=== PATIENT | female | born 1950 | race African-American/Black ===

== ENCOUNTER 2016-05-05 01:33 | Emergency (ER) | payer MEDICARE, MEDICAID ==
[~2016-05-05] VITALS: Ht 165.1 cm; Wt 95.3 kg
[~2016-05-05 01:33] MED LIST: ALBUTEROL SULF8.5 GM INH; ASPIRIN81 MG ORAL; AZITHROMYCIN250 MG ORAL; CARVEDILOL6.25 MG PO; COLACE100 MG ORAL; FOLIC ACID1 MG PO; GUAIFENESIN-CO118 M1 PO; IBUPROFEN600 MG ORAL; K-DUR10 ME1 PO; LASIX20 M1 PO; LEVAQUIN500 MG ORAL; LIPITOR20 MG ORAL; LOPRESSOR25 M1 ORAL; MONISTAT 744 GM VG; NITROFURANTOIN100 M2 ORAL; NITROSTAT0.4 M1 SL; NORCO 5-325 TA1 EACH ORAL; PLAVIX75 MG ORAL; PLAVIX75 MG PO; PRINIVIL20 MG ORAL; PROMETHAZINE-C118 M1 ORAL; PROTONIX40 MG ORAL; REPLENS6.7 GM VG; SPIRIVA18 MCG INH; SPIRONOLACTONE25 MG PO; VICODIN 5-5001 EACH PO
[2016-05-05] MEDS ORDERED: Albuterol ud Inhalation HHN ONE (01:45)
[2016-05-05] MEDS ORDERED: Solu-MEDROL 125mg Inj IVP ONE (01:45)
[2016-05-05] MEDS ORDERED: Ipratropium 0.02% Inh Soln 2.5ml UD HHN ONE (01:45)
[2016-05-05] MEDS ORDERED: Morphine Sulfate 4mg/ml Inj IVP ONE (01:45)
[2016-05-05 01:50] VITALS: BP 108/69
--- NOTE | 2016-05-05 01:56 | Emergency Room Report ---
History of Present Illness General Chief Complaint: Upper Respiratory Illness Source: Patient, EMS Present Illness HPI The patient presents with chest pain and shortness of breath. She is being treated for bronchitis recently received a prescription for promethazine at her doctor's office. She does have a productive cough hydrated pain is in her back and her right chest. It is 8-9/10 sharp pleuritic radiates up towards her shoulder blade. She does have medicines to treat asthma at home. She does not have a nebulizer. She denies taking prednisone at this time. The paramedics report that there was quite a bit of cigarette smoke where she was. Allergies: Coded Allergies: No Known Allergies (Verified , 05/05/16) Patient History Past Medical History: see triage record Social History: Reports: smoking Social History Narrative with daughter Last Menstrual Period: unk Now: No Reviewed Nursing Documentation: PMH: Agreed, PSxH: Agreed Nursing Documentation-PMH Hx Cardiac Problems: Yes - CHF Hx Hypertension: Yes Hx Pacemaker: Yes Hx COPD: Yes Hx Diabetes: Yes Hx Cancer: No Hx Gastrointestinal Problems: No Hx Neurological Problems: Yes Hx Cerebrovascular Accident: Yes Hx Neurologic Surgery: No Review of Systems All Other Systems: negative except mentioned in HPI Physical Exam Vital Signs Date Time Temp Pulse Resp B/P Pulse Ox O2 Delivery O2 Flow Rate FiO2 05/05/16 01:37 98.2 97 20 107/72 94 Room Air Sp02 EP Interpretation: reviewed, normal General Appearance: well appearing, no apparent distress, GCS 15 Head: normocephalic Eyes: bilateral eye other - dyscongugate gaze ENT: moist mucus membranes Neck: supple Respiratory: wheezing, expiration, other - chest wall tenderness R Cardiovascular #1: regular rate, rhythm, no edema Cardiovascular #2: 2+ radial (R) Gastrointestinal: normal inspection, normal bowel sounds, non tender, no mass, non-distended Musculoskeletal: back normal, gait/station normal, normal range of motion Neurologic: alert, oriented x3, grossly normal - with dyscongugate gaze Psychiatric: mood/affect normal Skin: normal inspection, warm/dry Medical Decision Making Diagnostic Impression: Primary Impression: Chest pain Qualified Codes: R07.9 - Chest pain, unspecified Additional Impressions: COPD (chronic obstructive pulmonary disease) Qualified Codes: J44.1 - Chronic obstructive pulmonary disease with (acute) exacerbation UTI (urinary tract infection) Qualified Codes: N30.00 - Acute cystitis without hematuria ER Course Patient with SOB and wheezing. Ddx; pneumonia, COPD, bronchitis, AMI. Emergent evaluation and treatment undertaken. Labs, EKG, CXR. Bronchodilators and steroids initiated. Treatment for pain also. History is atypical. EKG - no injury. CXR = copd, no infiltrate. Labs unremarkable. UTI. Patient improved. Offered patient admission if not feel OK at home. She elected to be treated at home. Patient stable for outpatient observation and treatment. Advised to return if not doing well. Laboratory Tests Test 05/05/16 02:00 05/05/16 02:32 White Blood Count 10.2 K/UL (4.8-10.8) Red Blood Count 3.54 M/UL (4.20-5.40) L Hemoglobin 11.9 G/DL (12.0-16.0) L Hematocrit 34.9 % (37.0-47.0) L Mean Corpuscular Volume 99 FL (80-99) Mean Corpuscular Hemoglobin 33.6 PG (27.0-31.0) H Mean Corpuscular Hemoglobin Concent 34.1 G/DL (32.0-36.0) Red Cell Distribution Width 11.3 % (11.6-14.8) L Platelet Count 188 K/UL (150-450) Mean Platelet Volume 6.6 FL (6.5-10.1) Neutrophils (%) (Auto) 51.6 % (45.0-75.0) Lymphocytes (%) (Auto) 40.3 % (20.0-45.0) Monocytes (%) (Auto) 4.5 % (1.0-10.0) Eosinophils (%) (Auto) 3.0 % (0.0-3.0) Basophils (%) (Auto) 0.6 % (0.0-2.0) Prothrombin Time 9.8 SEC (9.30-11.50) Prothrombin Time INR 1.0 (0.9-1.1) PTT 28 SEC (23-33) Sodium Level 143 mEQ/L (135-145) Potassium Level 3.9 mEQ/L (3.4-4.9) Chloride Level 102 mEQ/L (98-107) Carbon Dioxide Level 25 mEQ/L (20-30) Anion Gap 16 (5-15) H Blood Urea Nitrogen 17 mg/dL (7-23) Creatinine 1.0 mg/dL (0.5-0.9) H Estimate Glomerular Filtration Rate > 60 mL/min (>60) Glucose Level 119 mg/dL (74-106) H Lactic Acid Level 2.00 mmol/L (0.66-2.22) Calcium Level 8.6 mg/dL (8.6-10.2) Total Bilirubin < 0.2 mg/dL (0.0-1.2) Aspartate Amino Transferase (AST) 29 U/L (5-40) Alanine Aminotransferase (ALT) 22 U/L (3-33) Alkaline Phosphatase 113 U/L (35-104) H Total Creatine Kinase 243 U/L (26-140) H Troponin I < 0.30 ng/mL (<=0.30) Pro-B-Type Natriuretic Peptide 206 pg/mL (0-125) H Total Protein 7.6 g/dL (6.6-8.7) Albumin 3.4 g/dL (3.5-5.2) L Globulin 4.2 g/dL Albumin/Globulin Ratio 0.8 (1.0-2.7) L Urine Color Pale yellow Urine Appearance Clear Urine pH 5 (4.5-8.0) Urine Specific Horace 1.015 (1.005-1.035) Urine Protein Negative (NEGATIVE) Urine Glucose (UA) Negative (NEGATIVE) Urine Ketones Negative (NEGATIVE) Urine Occult Blood Negative (NEGATIVE) Urine Nitrite Negative (NEGATIVE) Urine Bilirubin Negative (NEGATIVE) Urine Urobilinogen Normal MG/DL (0.0-1.0) Urine Leukocyte Esterase 2+ (NEGATIVE) H Urine RBC 0-2 /HPF (0 - 2) Urine WBC 5-10 /HPF (0 - 2) H Urine Squamous Epithelial Cells Few /LPF (NONE/OCC) Urine Bacteria Few /HPF (NONE) Urine Trichomonas Few /HPF (NONE) H Urine Opiates Screen Positive (NEGATIVE) H Urine Barbiturates Screen Negative (NEGATIVE) Phencyclidine (PCP) Screen Negative (NEGATIVE) Urine Amphetamines Screen Negative (NEGATIVE) Urine Benzodiazepines Screen Negative (NEGATIVE) Urine Cocaine Screen Negative (NEGATIVE) Urine Marijuana (THC) Screen Negative (NEGATIVE) Microbiology Date/Time Source Procedure Growth Status 05/05/16 02:26 Nasal Nares Influenza Types A,B Antigen (BRENDA) - Final Complete EKG Diagnostic Results Rate: normal Rhythm: NSR ST Segments: no acute changes Rhythm Strip Diag. Results EP Interpretation: yes Rhythm: NSR, no PVC's, no ectopy Chest X-Ray Diagnostic Results EP Interpretation: Yes Findings: no consolidation, no effusion, no pneumothorax, other - poor insp Number of Views: 1 Last Vital Signs Date Time Temp Pulse Resp B/P Pulse Ox O2 Delivery O2 Flow Rate FiO2 05/05/16 06:01 98.2 87 19 111/67 97 Room Air 2.0 Status: improved Disposition: HOME, SELF-CARE Condition: Improved Scripts D-Methorphan Hb/Prometh Hcl* (PROMETHAZINE-DM SYRUP*) 118 Ml Syrup 5 ML ORAL Q4H Y for For Cough, #120 ML 0 Refills Prov: Ricardo Coker M.D. 05/05/16 Prednisone* (PREDNISONE*) 10 Mg Tablet 10 MG ORAL DAILY, #22 TAB 0 Refills 4 po QD X 2, 3 po QD X 2, 2 po QD X 2, 1 po QD X 4 Prov: Ricardo Coker M.D. 05/05/16 Nitrofurantoin Monohyd/M-Cryst* (MACROBID 100 MG*) 100 Mg Capsule 100 MG ORAL EVERY 12 HOURS, #14 CAP Prov: Ricardo Coker M.D. 05/05/16 Referrals: NOT CHOSEN ANISHA/,REFERRING (PCP) Ricardo Coker M.D. May 05, 2016 01:56
[2016-05-05] MEDS ORDERED: DIOVAN80 MG ORAL (02:00)
[2016-05-05] MEDS ORDERED: FUROSEMIDE40 MG/5 ML ORAL (02:00)
[2016-05-05] MEDS ORDERED: SPIRONOLACTONE1 EACH ORAL (02:00)
[2016-05-05] MEDS ORDERED: POTASSIUM 25 M25 ME1 PO (02:00)
[2016-05-05] MEDS ORDERED: FOLIC ACID1 M1 PO (02:00)
[2016-05-05] MEDS ORDERED: COREG6.25 MG ORAL (02:00)
[2016-05-05] MEDS ORDERED: PROMETH-CODEIN 65 ML PO (02:00)
[2016-05-05] MEDS ORDERED: D3-5050000 UNIT PO (02:00)
[2016-05-05 02:19] LABS: BASOPHILS % (AUTO) 0.6 % (0.0-2.0); LYMPHOCYTES % (AUTO) 40.3 % (20.0-45.0); MEAN CORPUSCULAR HEMOGLOBIN 33.6 PG (27.0-31.0); MEAN CORPUSCULAR HGB CONC 34.1 G/DL (32.0-36.0); MEAN CORPUSCULAR VOLUME 99 FL (80-99); MEAN PLATELET VOLUME 6.6 FL (6.5-10.1); MONOCYTES % (AUTO) 4.5 % (1.0-10.0); NEUTROPHILS % (AUTO) 51.6 % (45.0-75.0); PLATELET COUNT 188 K/UL (150-450); RED BLOOD COUNT 3.54 M/UL (4.20-5.40); RED CELL DISTRIBUTION WIDTH 11.3 % (11.6-14.8); WHITE BLOOD COUNT 10.2 K/UL (4.8-10.8)
[2016-05-05 02:27] LABS: PROTHROMBIN TIME 9.8 SEC (9.30-11.50)
[2016-05-05 02:35] LABS: ALANINE AMINOTRANSFERASE 22 U/L (3-33); ALBUMIN/GLOBULIN RATIO 0.8 (1.0-2.7); ANION GAP 16 (5-15); ASPARTATE AMINO TRANSFERASE 29 U/L (5-40); CALCIUM 8.6 mg/dL (8.6-10.2); CARBON DIOXIDE 25 mEQ/L (20-30); CHLORIDE 102 mEQ/L (98-107); GLOMERULAR FILTRATION RATE > 60 mL/min (>60); HEMOLYSIS 3; POTASSIUM 3.9 mEQ/L (3.4-4.9); SODIUM 143 mEQ/L (135-145); TOTAL PROTEIN 7.6 g/dL (6.6-8.7)
[2016-05-05 02:38] LABS: REFLEX LACTIC ACID YES OR NO YES
[2016-05-05 02:41] LABS: TROPONIN I < 0.30 ng/mL (<=0.30)
[2016-05-05 02:43] VITALS: BP 112/67
[2016-05-05 02:48] LABS: APPEARANCE,URINE CLEAR; KETONES,URINE NEGATIVE (NEGATIVE); LEUKOCYTE ESTERASE ,URINE 2+ (NEGATIVE); NITRITE,URINE NEGATIVE (NEGATIVE); PH,URINE 5 (4.5-8.0); PROTEIN,URINE NEGATIVE (NEGATIVE); UROBILINOGEN,URINE NORMAL MG/DL (0.0-1.0)
[2016-05-05 03:28] LABS: BACTERIA,URINE FEW /HPF; RBC,URINE 0-2 /HPF (0 - 2); SQUAMOUS EPITHELIAL CELL,UR FEW /LPF (NONE/OCC); TRICHOMONAS,URINE FEW /HPF
[2016-05-05 04:35] VITALS: BP 112/71
[2016-05-05] MEDS ORDERED: cefTRIAXone 1 GM in NS 55 ML IVPB ONE (05:15)
[2016-05-05 05:24] VITALS: BP 111/67
[2016-05-05] MEDS ORDERED: NITROFURANTOIN100 M2 ORAL (05:24)
[2016-05-05] MEDS ORDERED: PREDNISONE10 MG ORAL (05:24)
[2016-05-05] MEDS ORDERED: PROMETHAZINE-D118 ML ORAL (05:24)
[2016-05-05 06:01] VITALS: BP 111/67
--- NOTE | 2016-05-05 08:46 | Diagnostic Imaging Report ---
Indications: Chest pain Technique: Portable AP chest Findings: Comparison: 08/14/15 Cardiac silhouette remains normal in size. Pulmonary vasculature remains within normal limits. Lungs and pleura remain clear. Mild calcification of the aortic arch is again noted. IMPRESSION: No evidence of acute disease, unchanged Stable chronic changes as described
--- NOTE | 2016-05-05 19:42 | Cardiology Report ---
APPROVED REPORT EKG Measurement Heart [id number] Normal sinus rhythm Anterior infarct, age undetermined Abnormal ECG
== END 2016-05-05 06:06 | disposition home or self-care (01) ==
LOC: EDBD 01:33 → EMR 01:48 → CANBEDREQ 05:26 → EMR 06:06
DX: R07.9 Chest pain, unspecified (principal); J44.9 Chronic obstructive pulmonary disease, unspecified; I50.9 Heart failure, unspecified; I10 Essential (primary) hypertension; E11.9 Type 2 diabetes mellitus without complications; Z86.73 Personal history of transient ischemic attack (TIA), and cerebral infarction without residual deficits; Z95.0 Presence of cardiac pacemaker
CPT/HCPCS: 36415; 71010; 80053; 80300; 81003; 82550; 83605; 83880; 84484; 85025; 85610; 85730; 86710; 87040; 93005; 94640; 94664; 96361; 96365; 96374; 96375; 99284; J0696; J2270; J2405; J2930

== ENCOUNTER 2016-05-31 17:36 | Emergency (ER) | payer MEDICARE, MEDICAID ==
[~2016-05-31] VITALS: Ht 165.1 cm; Wt 95.7 kg
[~2016-05-31 17:36] MED LIST changes: +COREG6.25 MG ORAL; +D3-5050000 UNIT PO; +DIOVAN80 MG ORAL; +FOLIC ACID1 M1 PO; +FUROSEMIDE40 MG/5 ML ORAL; +POTASSIUM 25 M25 ME1 PO; +PREDNISONE10 MG ORAL; +PROMETH-CODEIN 65 ML PO; +PROMETHAZINE-D118 ML ORAL; +SPIRONOLACTONE1 EACH ORAL
[2016-05-31 17:58] VITALS: BP 156/87
[2016-05-31] MEDS ORDERED: ACYCLOVIR800 MG ORAL (18:02)
[2016-05-31] MEDS ORDERED: TYLENOL EXTRA500 MG ORAL (18:02)
[2016-05-31] MEDS ORDERED: BACTRIM DS TAB1 EAC1 ORAL (18:02)
[2016-05-31 18:09] VITALS: BP 156/87
--- NOTE | 2016-05-31 19:35 | Emergency Room Report ---
History of Present Illness General Chief Complaint: Skin Rash/Abscess Source: Patient Present Illness HPI The patient is a 64-year-old female presenting for an abscess and a rash. The patient states that she first noticed pain and swelling in the arm 3 days prior. The patient states that she has had an abscess in this location previously and this feels the same. Pain is described as an 8/10 dull ache it is worse with touch. Patient has not noticed any discharge. Pain does not radiate. The patient also noticed a rash of the left breast, arm, and back which began 2 days prior. The patient states that she has noticed only minor pain with this rash and is described as a 3/10 sharp sensation. Pain worse with touch. The patient has had chickenpox as a child. The patient denies any other symptoms including fever, chills, chest pain, shortness of breath, dizziness, blurred vision Allergies: Coded Allergies: No Known Allergies (Verified , 05/05/16) Patient History Past Medical History: see triage record Pertinent Family History: none Last Menstrual Period: N/A Reviewed Nursing Documentation: PMH: Agreed, PSxH: Agreed Nursing Documentation-PMH Past Medical History: No Stated History Hx Cardiac Problems: Yes - CHF Hx Hypertension: Yes Hx Pacemaker: Yes Hx COPD: Yes Hx Diabetes: Yes Hx Cancer: No Hx Gastrointestinal Problems: No Hx Neurological Problems: Yes Hx Cerebrovascular Accident: Yes Hx Neurologic Surgery: No Review of Systems All Other Systems: negative except mentioned in HPI Physical Exam Vital Signs Date Time Temp Pulse Resp B/P Pulse Ox O2 Delivery O2 Flow Rate FiO2 05/31/16 17:44 98.2 84 19 161/93 98 Room Air Sp02 EP Interpretation: reviewed, normal General Appearance: no apparent distress, alert, GCS 15, non-toxic Head: normocephalic, atraumatic Eyes: bilateral eye PERRL, bilateral eye normal inspection Musculoskeletal: back normal, gait/station normal, normal range of motion, non- tender Neurologic: alert, oriented x3, responsive, motor strength/tone normal, sensory intact, speech normal Psychiatric: judgement/insight normal, memory normal, mood/affect normal, no suicidal/homicidal ideation Skin: normal turgor, rash - There are grouped vesicles on an erythematous base from the L upper chest to the L back. Does not cross midline. TTP, other - 2cm in diameter indurated abscess of the L axilla Lymphatic: no adenopathy Medical Decision Making PA Attestation Dr. Abebe is my supervising physician. Patient management was discussed with my supervising physician Diagnostic Impression: Primary Impression: Abscess Additional Impression: Shingles ER Course The patient is a 64-year-old female presenting for an abscess and a rash. Ddx considered include but not limited to insect bite, contact dermatitis, shingles, eczema, abscess, cellulitis PE: afebrile. NAD. There are grouped vesicles on an erythematous base from the L upper chest to the L back. Does not cross midline. TTP There is also a 2 cm indurated abscess of the left axilla. Tender to palpation. No discharge. No fluctuance. The patient will be discharged with a prescription for acyclovir for shingles and Keflex for abscess. Patient is given instructions to return for incision and drainage if/when needed. ER precautions are given The patient will follow up with primary care physician Last Vital Signs Date Time Temp Pulse Resp B/P Pulse Ox O2 Delivery O2 Flow Rate FiO2 05/31/16 18:09 98.2 75 19 156/87 98 Room Air Status: improved Disposition: HOME, SELF-CARE Condition: Improved Scripts Acetaminophen* (TYLENOL EXTRA STRENGTH*) 500 Mg Tablet 500 MG ORAL Q8H Y for Prn Headache/Temp > 101, #30 TAB 0 Refills Prov: TERZIAN,MIRIAM P.A. 05/31/16 Trimethoprim/Sulfamethoxazole 160/800* (BACTRIM DS TABLET*) 1 Each Tablet 1 TAB ORAL TWICE A DAY, #14 TAB Prov: TERZIAN,MIRIAM P.A. 05/31/16 Acyclovir* (ZOVIRAX*) 800 Mg Tablet 800 MG ORAL FIVE TIMES A DAY, #35 TAB Prov: TERZIAN,MIRIAM P.A. 05/31/16 Referrals: NON PHYSICIAN (PCP) Patient Instructions: Abscess, Shingles Additional Instructions: I discussed my findings with the patient. All questions and concerns have been answered. Treatment and medication compliance have been addressed. I advised the patient that they need to follow up with PMD in 3-5 days. Return to ED if symptoms worsen, new symptoms arise, or if needed for any reason. Patient verbalized understanding of discharge instructions. The patient will see entry level accounting clerk on [facility] as discussed MIRIAM CRAWFORD May 31, 2016 19:35
== END 2016-05-31 18:12 | disposition home or self-care (01) ==
LOC: EMR 17:51
DX: L02.412 Cutaneous abscess of left axilla (principal); B02.9 Zoster without complications; I10 Essential (primary) hypertension; E11.9 Type 2 diabetes mellitus without complications; Z86.73 Personal history of transient ischemic attack (TIA), and cerebral infarction without residual deficits; Z95.0 Presence of cardiac pacemaker
CPT/HCPCS: 99284

== ENCOUNTER 2016-07-24 08:56 | Emergency (ER) | payer MEDICARE, MEDICAID ==
[~2016-07-24] VITALS: Ht 165.1 cm; Wt 94.3 kg
[~2016-07-24 08:56] MED LIST changes: +ACYCLOVIR800 MG ORAL; +BACTRIM DS TAB1 EAC1 ORAL; +TYLENOL EXTRA500 MG ORAL
[2016-07-24 09:29] VITALS: BP 143/83
[2016-07-24] MEDS ORDERED: AMOXICILLIN500 MG ORAL (09:39)
[2016-07-24 09:45] VITALS: BP 143/83
--- NOTE | 2016-07-24 13:39 | Emergency Room Report ---
History of Present Illness General Chief Complaint: Upper Respiratory Illness Source: Patient Present Illness HPI 66-year-old female presents to ED for evaluation. Patient states for one week she has had runny nose and congestion and a headache. Headache is throbbing, 6/ 10, across the forehead, nonradiating. No other aggravating or relieving factors. Denies fevers chills. Denies sore throat or ear ache. Denies sick contacts or recent travel. No aggravating or relieving factors. Denies any other associated symptom Allergies: Coded Allergies: No Known Allergies (Verified , 05/05/16) Patient History Past Medical History: HTN, CHF, CVA/TIA Past Surgical History: pacemaker Pertinent Family History: none Social History: Denies: alcohol use, drug use, smoking Last Menstrual Period: na Now: No Immunizations: UTD Reviewed Nursing Documentation: PMH: Agreed, PSxH: Agreed Nursing Documentation-PMH Past Medical History: No History, Except For Hx Cardiac Problems: Yes - CHF Hx Hypertension: Yes Hx Pacemaker: Yes Hx COPD: Yes Hx Cancer: No Hx Gastrointestinal Problems: No Hx Neurological Problems: Yes Hx Cerebrovascular Accident: Yes Hx Neurologic Surgery: No Review of Systems All Other Systems: negative except mentioned in HPI Physical Exam Vital Signs Date Time Temp Pulse Resp B/P Pulse Ox O2 Delivery O2 Flow Rate FiO2 07/24/16 09:06 98.4 73 18 143/83 98 Room Air Sp02 EP Interpretation: reviewed, normal General Appearance: no apparent distress, alert, GCS 15, non-toxic Head: normocephalic, other - TTP over frontal sinus Eyes: bilateral eye PERRL, bilateral eye normal inspection ENT: normal ENT inspection, TMs + canals normal Neck: normal inspection Respiratory: normal inspection Cardiovascular #1: normal inspection Gastrointestinal: normal inspection Rectal: deferred Genitourinary: no CVA tenderness Musculoskeletal: normal inspection Neurologic: alert, oriented x3, responsive, motor strength/tone normal, sensory intact, speech normal Psychiatric: normal inspection Skin: normal inspection Lymphatic: no adenopathy Medical Decision Making Diagnostic Impression: Primary Impression: Sinusitis Qualified Codes: J01.10 - Acute frontal sinusitis, unspecified ER Course Hospital Course 66-year-old F presents to ED complaining of nasal congestion. c/o headache Differential diagnoses include: URI, pharyngitis, otitis media, asthma Clinical course Patient placed on stretcher. After initial history, physical exam reveals an elderly female in no acute distress. Bilateral TM unremarkable. No pharyngeal erythema. No tonsillar exudates. No lymphadenopathy. lungs clear. abdomen soft. TTP over frontal sinuses. Clinical findings consistent with sinusitits. given Persistence of symptoms we will treat with antibiotics Diagnosis - sinusitits Stable and discharged home with prescriptions for amoxicillin. Instructed to followup with PMD. Return to ED if symptoms recur or worsen Last Vital Signs Date Time Temp Pulse Resp B/P Pulse Ox O2 Delivery O2 Flow Rate FiO2 07/24/16 09:45 98.4 73 18 143/83 98 Room Air Status: improved Disposition: HOME, SELF-CARE Condition: Stable Scripts Amoxicillin* (AMOXIL*) 500 Mg Capsule 500 MG ORAL THREE TIMES A DAY, #21 CAP Prov: ANIYA LYONS M.D. 07/24/16 Referrals: NON PHYSICIAN (PCP) Patient Instructions: Sinusitis, Adult, [id number] ANIYA LYONS M.D. Jul 24, 2016 13:39
== END 2016-07-24 09:50 | disposition home or self-care (01) ==
LOC: EMR 09:40
DX: J01.10 Acute frontal sinusitis, unspecified (principal); R51 Headache; I10 Essential (primary) hypertension; I50.9 Heart failure, unspecified; Z86.73 Personal history of transient ischemic attack (TIA), and cerebral infarction without residual deficits; Z95.0 Presence of cardiac pacemaker; J44.9 Chronic obstructive pulmonary disease, unspecified
CPT/HCPCS: 99283

== ENCOUNTER 2016-10-27 18:20 | Emergency (ER) | payer MEDICARE, MEDICAID ==
[~2016-10-27] VITALS: Ht 165.1 cm; Wt 94.3 kg
[~2016-10-27 18:20] MED LIST changes: +AMOXICILLIN500 MG ORAL
[2016-10-27 18:32] VITALS: BP 114/69
[2016-10-27] MEDS ORDERED: Fluorescein Strips ONE (18:37)
[2016-10-27] MEDS ORDERED: Tetracaine 0.5% Opth Soln ONE (18:37)
--- NOTE | 2016-10-27 18:56 | Emergency Room Report ---
History of Present Illness General Chief Complaint: Eye Problems Source: Patient Present Illness HPI 66 YO female presents to the ED c/o 01/28 in severity burning in the left eye with , redness, discharge, scratching sensation , and burning when look at bright lights x 4 days. pt. denies trauma to the eye, deep eye pain, pain with movements of the eye, swelling of the eyelids, floaters, flashing lights or vision loss. pt. states vision will become blurry due to excessive tearing. pt. denies DANIELS, Nausea or vomiting. Pt. denies contact lens use, she states she wears glasses for both near and far vision. pt. reports having very poor vision overall, and states she is currently prescribed eye drops that she takes daily by her rag cutting machine feeder for unknown diagnosis, pt. does not recall the names of her eye drops. Denies CP, Palpitations, LOC, AMS, dizziness, Changes in Vision, Sensation, paresthesias, or a sudden severe headache. Allergies: Coded Allergies: No Known Allergies (Verified , 05/05/16) Patient History Past Medical History: see triage record Past Surgical History: none Now: No Immunizations: UTD Reviewed Nursing Documentation: PMH: Agreed, PSxH: Agreed Nursing Documentation-PMH Hx Cardiac Problems: Yes - CHF Hx Hypertension: Yes Hx Pacemaker: Yes Hx COPD: Yes Hx Cancer: No Hx Gastrointestinal Problems: No Hx Neurological Problems: Yes Hx Cerebrovascular Accident: Yes Hx Neurologic Surgery: No Review of Systems All Other Systems: negative except mentioned in HPI Physical Exam Vital Signs Date Time Temp Pulse Resp B/P Pulse Ox O2 Delivery O2 Flow Rate FiO2 10/27/16 18:22 98.1 93 16 114/69 97 Room Air Sp02 EP Interpretation: reviewed, normal General Appearance: no apparent distress, alert, GCS 15, non-toxic Head: normocephalic, atraumatic Eyes: left eye fluoroscene uptake - Positive for increased fluorescein uptake in a linear fashion in the 7 o'clock position of the felt eye, there is no involvement of the iris or pupil. Negative Tita sign. , left eye other - erythema, increased lacrimation and obvious discharge noted from the right eye, no lesions, lid swelling, or evidence of infestation, bilateral eye PERRL, bilateral eye normal inspection, bilateral eye visual acuity - 20/40- tested by PEDIATRIC OPHTHALMOLOGIST: hearing grossly normal, normal pharynx, no angioedema, normal voice Neck: full range of motion, supple/symm/no masses Respiratory: chest non-tender, lungs clear, normal breath sounds, speaking full sentences Cardiovascular #1: regular rate, rhythm, no edema Musculoskeletal: back normal, gait/station normal, normal range of motion, non- tender Neurologic: alert, oriented x3, responsive, motor strength/tone normal, sensory intact, speech normal Psychiatric: judgement/insight normal, memory normal, mood/affect normal Skin: normal color, no rash, warm/dry, well hydrated Lymphatic: no adenopathy Medical Decision Making PA Attestation Dr Rebolledo is my supervising Physician whom patient management has been discussed with. Diagnostic Impression: Primary Impression: Corneal abrasion Qualified Codes: S05.02XA - Injury of conjunctiva and corneal abrasion without foreign body, left eye, initial encounter Additional Impression: Conjunctivitis Qualified Codes: H10.32 - Unspecified acute conjunctivitis, left eye ER Course Pt. presents to the ED c/o : Left eye redness, discharge, scratching sensation and increased tearing x 4 days, now grandchild also has similar symptoms. Pt. reports burning pain that is superficial, and photophobia with bright lights. denies DANIELS, or nausea. - Pt denies Contact lens use, reports wearing glasses. Ddx considered but are not limited to: corneal abrasion, acute glaucoma, globe rupture, FB, Corneal Ulcer, conjunctivitis. Iridis Vital signs: are WNL, pt. is afebrile H&PE are most consistent with: corneal abrasion, and secondary conjunctivitis, pupils are not fixed/ dilated I do not suspect acute glaucoma at this time especially with HPI and grandson with symptoms now, will do fluorescein stain. ORDERS: -Tetracaine and Fluorescein Stain of the left eye: Positive for increased fluorescein uptake in a linear fashion in the 7 o'clock position of the felt eye , there is no involvement of the iris or pupil. Negative Tita sign. Pt. had positive relief of pain with tetracaine drops. there was negative evidence of Fb, deep ulcer, or rupture. ED INTERVENTIONS: none at this time. DISCHARGE: At this time pt. is stable for d/c to home. Will provide printed patient care instructions, and any necessary prescriptions. Care plan and follow up instructions have been discussed with the patient prior to discharge. . Last Vital Signs Date Time Temp Pulse Resp B/P Pulse Ox O2 Delivery O2 Flow Rate FiO2 10/27/16 18:32 98.1 93 16 114/69 97 Room Air Disposition: HOME, SELF-CARE Condition: Stable Scripts Ofloxacin (OCUFLOX) 5 Ml Drops 2 DROP OP QID for 7 Days, #5 ML Prov: Joyce Bass 10/27/16 Acetaminophen* (TYLENOL EXTRA STRENGTH*) 500 Mg Tablet 500 MG ORAL Q6H, #20 TAB 0 Refills Prov: Joyce Bass 10/27/16 Patient Instructions: Corneal Abrasion, [id number], Bacterial Conjunctivitis Additional Instructions: Take medications as directed. Follow up with a [facility] in 48 hours, even if your symptoms have resolved. --Please review list of primary care clinics, if you do not already have a primary care provider Return sooner to ED if new symptoms occur, or current symptoms become worse. - Please note that this Emergency Department Report was dictated using [employer] service technician technology software, occasionally this can lead to erroneous entry secondary to interpretation by the dictation equipment. Joyce Bass Oct 27, 2016 18:56
[2016-10-27] MEDS ORDERED: OCUFLOX5 ML OP (18:57)
[2016-10-27] MEDS ORDERED: TYLENOL EXTRA500 MG ORAL (18:57)
== END 2016-10-27 19:06 | disposition home or self-care (01) ==
LOC: EMR 18:55
DX: S05.02XA Injury of conjunctiva and corneal abrasion without foreign body, left eye, initial encounter (principal); H10.32 Unspecified acute conjunctivitis, left eye; I50.9 Heart failure, unspecified; I10 Essential (primary) hypertension; Z95.0 Presence of cardiac pacemaker; J44.9 Chronic obstructive pulmonary disease, unspecified; Z86.73 Personal history of transient ischemic attack (TIA), and cerebral infarction without residual deficits; X58.XXXA Exposure to other specified factors, initial encounter; Y92.9 Unspecified place or not applicable
CPT/HCPCS: 99284

== ENCOUNTER 2017-04-02 10:37 | Emergency (ER) | payer MEDICARE, MEDICAID ==
[~2017-04-02] VITALS: Ht 165.1 cm; Wt 93.9 kg
[~2017-04-02 10:37] MED LIST changes: +OCUFLOX5 ML OP
[2017-04-02] MEDS ORDERED: ZYRTEC10 M3 ORAL (10:57)
[2017-04-02 11:05] VITALS: BP 152/94
--- NOTE | 2017-04-02 11:05 | Emergency Room Report ---
History of Present Illness General Chief Complaint: Upper Respiratory Illness Source: Patient Present Illness HPI 66-year-old female with chief complaint of "my nose is running" for 2 weeks No associated sore throat, shortness of breath, chest pain Patient is a smoker, denies history of asthma, COPD or CHF No sick contacts at home Allergies: Coded Allergies: No Known Allergies (Verified , 05/05/16) Patient History Past Medical History: see triage record, old chart reviewed Past Surgical History: none Pertinent Family History: none Social History: Reports: smoking Last Menstrual Period: Post Now: No Immunizations: UTD Reviewed Nursing Documentation: PMH: Agreed, PSxH: Agreed Nursing Documentation-PMH Hx Cardiac Problems: Yes - CHF Hx Hypertension: Yes Hx Pacemaker: No Hx COPD: Yes Hx Diabetes: No Hx Cancer: No Hx Gastrointestinal Problems: No Hx Neurological Problems: No Hx Cerebrovascular Accident: Yes Hx Neurologic Surgery: No Review of Systems All Other Systems: negative except mentioned in HPI Physical Exam Vital Signs Date Time Temp Pulse Resp B/P (MAP) Pulse Ox O2 Delivery O2 Flow Rate FiO2 04/02/17 10:40 98.1 67 19 152/94 99 Room Air Sp02 EP Interpretation: reviewed, normal General Appearance: normal inspection, well appearing, no apparent distress, alert, GCS 15, non-toxic Head: normocephalic, atraumatic Eyes: bilateral eye PERRL, bilateral eye EOMI ENT: normal ENT inspection, hearing grossly normal, normal pharynx, no angioedema, normal voice, TMs + canals normal, uvula midline, moist mucus membranes Neck: normal inspection, full range of motion, supple, no bony tend Respiratory: normal inspection, lungs clear, normal breath sounds, no respiratory distress, no retraction, no wheezing Cardiovascular #1: regular rate, rhythm, no edema Gastrointestinal: normal inspection, normal bowel sounds, non tender, soft, no guarding, no hernia Genitourinary: no CVA tenderness Musculoskeletal: normal inspection, back normal, normal range of motion, Radha' s Sign negative Neurologic: normal inspection, alert, oriented x3, responsive, 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 Patient is to be discharged to home. Prescriptions given are zyrtec Patient is instructed to follow up with their primary care doctor within 5 days. Strict return precautions discussed with patient such as fever, chills, worsening/severe pain, nausea, vomiting, which may indicate severe illness. Patient verbalizes understanding and agrees with plan. Please note that this Emergency Department Report was dictated using Dopiosquality control clerk technology software, occasionally this can lead to erroneous entry secondary to interpretation by the dictation equipment Last Vital Signs Date Time Temp Pulse Resp B/P (MAP) Pulse Ox O2 Delivery O2 Flow Rate FiO2 04/02/17 10:40 98.1 67 19 152/94 99 Room Air Status: improved Disposition: HOME, SELF-CARE Condition: Improved Scripts Cetirizine Hcl (ZYRTEC) 10 Mg Capsule 10 MG ORAL DAILY for 30 Days, #30 CAP 0 Refills Prov: DOV CUENCA M.D. 04/02/17 Patient Instructions: Upper Respiratory Infection, Adult DOV CUENCA M.D. Apr 02, 2017 11:05
== END 2017-04-02 11:11 | disposition home or self-care (01) ==
LOC: EMR 11:00
DX: J34.89 Other specified disorders of nose and nasal sinuses (principal); I50.9 Heart failure, unspecified; I11.0 Hypertensive heart disease with heart failure; J44.9 Chronic obstructive pulmonary disease, unspecified
CPT/HCPCS: 99283

== ENCOUNTER 2017-05-02 14:06 | Emergency (ER) | payer MEDICARE, MEDICAID ==
[~2017-05-02] VITALS: Ht 157.5 cm; Wt 90.7 kg
[~2017-05-02 14:06] MED LIST changes: +ZYRTEC10 M3 ORAL
[2017-05-02 14:20] VITALS: BP 138/76
--- NOTE | 2017-05-02 14:29 | Emergency Room Report ---
History of Present Illness General Chief Complaint: Abdominal Pain Source: Patient Present Illness HPI 66-year-old female, history of hypertension, presenting with suprapubic pain and burning on urination for one day. Patient states that she has urgency, but only little urination comes out. Denies any fever chills nausea vomiting diarrhea. Has been eating and drinking normally. No chest pain or shortness of breath Allergies: Coded Allergies: No Known Allergies (Verified , 05/05/16) Patient History Past Medical History: see triage record Past Surgical History: none Pertinent Family History: none Reviewed Nursing Documentation: PMH: Agreed, PSxH: Agreed Nursing Documentation-PMH Hx Cardiac Problems: Yes - CHF Hx Hypertension: Yes Hx Pacemaker: No Hx COPD: Yes Hx Diabetes: No Hx Cancer: No Hx Gastrointestinal Problems: No Hx Neurological Problems: No Hx Cerebrovascular Accident: Yes Hx Neurologic Surgery: No Review of Systems All Other Systems: negative except mentioned in HPI Physical Exam Vital Signs Date Time Temp Pulse Resp B/P (MAP) Pulse Ox O2 Delivery O2 Flow Rate FiO2 05/02/17 14:11 98.6 78 20 143/80 96 Room Air Sp02 EP Interpretation: reviewed, normal General Appearance: normal inspection, well appearing, no apparent distress, alert, GCS 15, non-toxic Head: normocephalic, atraumatic Eyes: bilateral eye PERRL, bilateral eye other - R sided strabismus ENT: normal ENT inspection, normal pharynx, normal voice, moist mucus membranes Neck: normal inspection, full range of motion, supple Respiratory: normal inspection, lungs clear, normal breath sounds, no respiratory distress, no retraction, no wheezing, speaking full sentences, chest symmetrical Cardiovascular #1: normal inspection, regular rate, rhythm, normal capillary refill Cardiovascular #2: 2+ radial (R), 2+ radial (L) Gastrointestinal: soft, non-distended, no guarding, other - +suprapubic tenerness no RLQ/LLQ tenderness Genitourinary: no CVA tenderness Musculoskeletal: normal inspection, back normal, normal range of motion, non- tender Neurologic: normal inspection, alert, oriented x3, responsive, motor strength/ tone normal, sensory intact, normal gait, speech normal Psychiatric: normal inspection, judgement/insight normal, memory normal Skin: normal inspection, normal color, no rash, warm/dry, well hydrated, normal turgor Medical Decision Making Diagnostic Impression: Primary Impression: Abdominal pain ER Course 66-year-old female with dysuria, urgency, suprapubic pain for one day Differential diagnosis Rule out UTI. Patient is nontender all parts of the abdomen except for suprapubic region Plan: UA / urine culture ER course: Pt remains stable/nontoxic appearing in ED. UA neg labs normal CT normal pt feels better even with no meds given tolerating po repeat exam soft abdomen dc home Disposition: Patient will be discharged home FU with pmd in 1 week Strict return precautions to discussed with patient such as high fever, chills, abdominal pain, nausea or vomiting. Patient verbalized understanding. Patient instructed to follow up with primary care doctor within 3 days. Patient agrees with plan. Please note that this Emergency Department Report was dictated using Cardiac Guarddirect care provider technology software, occasionally this can lead to erroneous entry secondary to interpretation by the dictation equipment EKG Diagnostic Results EP Interpretation: Yes Rate: normal Rhythm: NSR ST Segments: No acute changes ASA given to patient: No Rhythm Strip EP Interpretation: Yes Rate: 67 Rhythm: NSR, no PVCs, no ectopy Laboratory Tests Test 05/02/17 14:10 05/02/17 15:53 Urine Color Yellow Urine Appearance Clear Urine pH 5 (4.5-8.0) Urine Specific [place] 1.015 (1.005-1.035) Urine Protein Negative (NEGATIVE) Urine Glucose (UA) Negative (NEGATIVE) Urine Ketones Negative (NEGATIVE) Urine Occult Blood Negative (NEGATIVE) Urine Nitrite Negative (NEGATIVE) Urine Bilirubin Negative (NEGATIVE) Urine Urobilinogen 1 MG/DL (0.0-1.0) H Urine Leukocyte Esterase Negative (NEGATIVE) White Blood Count 9.3 K/UL (4.8-10.8) Red Blood Count 3.74 M/UL (4.20-5.40) L Hemoglobin 11.7 G/DL (12.0-16.0) L Hematocrit 36.7 % (37.0-47.0) L Mean Corpuscular Volume 98 FL (80-99) Mean Corpuscular Hemoglobin 31.4 PG (27.0-31.0) H Mean Corpuscular Hemoglobin Concent 32.0 G/DL (32.0-36.0) Red Cell Distribution Width 11.4 % (11.6-14.8) L Platelet Count 203 K/UL (150-450) Mean Platelet Volume 6.6 FL (6.5-10.1) Neutrophils (%) (Auto) 57.9 % (45.0-75.0) Lymphocytes (%) (Auto) 32.3 % (20.0-45.0) Monocytes (%) (Auto) 6.7 % (1.0-10.0) Eosinophils (%) (Auto) 2.3 % (0.0-3.0) Basophils (%) (Auto) 0.9 % (0.0-2.0) Sodium Level 138 MMOL/L (136-145) Potassium Level 4.1 MMOL/L (3.5-5.1) Chloride Level 104 MMOL/L (98-107) Carbon Dioxide Level 28 MMOL/L (21-32) Anion Gap 6 mmol/L (5-15) Blood Urea Nitrogen 14 mg/dL (7-18) Creatinine 1.2 MG/DL (0.55-1.30) Estimate Glomerular Filtration Rate 54.9 mL/min (>60) Glucose Level 99 MG/DL (74-106) Calcium Level 9.2 MG/DL (8.5-10.1) Total Bilirubin 0.3 MG/DL (0.2-1.0) Aspartate Amino Transferase (AST) 23 U/L (15-37) Alanine Aminotransferase (ALT) 29 U/L (12-78) Alkaline Phosphatase 129 U/L (46-116) H Total Protein 8.6 G/DL (6.4-8.2) H Albumin 3.2 G/DL (3.4-5.0) L Globulin 5.4 g/dL Albumin/Globulin Ratio 0.6 (1.0-2.7) L Lipase 105 U/L (73-393) CT/MRI/US Diagnostic Results CT/MRI/US Diagnostic Results : Imaging Test Ordered: CT abdo pelvis Impression Findings: Dependent atelectasis noted in the lung bases. Heart within upper limits for normal size. No pericardial effusion. Liver, gallbladder, spleen, adrenal glands and pancreas are unremarkable in appearance. Kidneys enhance symmetrically. No urinary tract stones or hydronephrosis bilaterally. The bladder is slightly decompressed, limiting its evaluation but grossly unremarkable. Uterus and adnexa are unremarkable on CT and similar in appearance compared to the prior exam. There is no evidence of bowel obstruction. No free intraperitoneal fluid or air is seen. No appreciable focal or diffuse abnormal bowel wall thickening is seen. Appendix is normal. There is colonic diverticulosis without evidence to suggest acute diverticulitis. Abdominal aorta is normal in caliber with scattered atherosclerotic calcifications. No bulky abdominal/pelvic lymphadenopathy is noted. There is multilevel degenerative change of the spine with stable grade 1 anterolisthesis of L5 on S1. Vacuum disc phenomena noted at L4-5, L5-S1 and L1-L2. IMPRESSION: No evidence of acute intra-abdominal pathology. Diverticulosis without evidence of acute diverticulitis. Normal appendix. No evidence of bowel obstruction or inflammation. No evidence of obstructive uropathy. Last Vital Signs Date Time Temp Pulse Resp B/P (MAP) Pulse Ox O2 Delivery O2 Flow Rate FiO2 05/02/17 14:11 98.6 78 20 143/80 96 Room Air Disposition: HOME, SELF-CARE Condition: Improved Scripts Famotidine (PEPCID) 40 Mg Tablet 40 MG PO DAILY, #7 TAB 0 Refills Prov: Jh Gregorio M.D. 05/02/17 Acetaminophen* (TYLENOL EXTRA STRENGTH*) 500 Mg Tablet 500 MG ORAL Q8H Y for Prn Headache/Temp > 101, #30 TAB 0 Refills Prov: Jh Gregorio M.D. 05/02/17 Patient Instructions: Abdominal Pain, Adult Jh Gregorio M.D. May 02, 2017 14:29
[2017-05-02 15:31] LABS: APPEARANCE,URINE CLEAR; BILIRUBIN, URINE NEGATIVE (NEGATIVE); GLUCOSE, URINE (UA) NEGATIVE (NEGATIVE); KETONES,URINE NEGATIVE (NEGATIVE); LEUKOCYTE ESTERASE ,URINE NEGATIVE (NEGATIVE); NITRITE,URINE NEGATIVE (NEGATIVE); PH,URINE 5 (4.5-8.0); PROTEIN,URINE NEGATIVE (NEGATIVE); UROBILINOGEN,URINE 1 MG/DL (0.0-1.0)
[2017-05-02 15:32] LABS: COLOR,URINE YELLOW
[2017-05-02 16:06] LABS: BASOPHILS % (AUTO) 0.9 % (0.0-2.0); EOSINOPHILS % (AUTO) 2.3 % (0.0-3.0); HEMATOCRIT 36.7 % (37.0-47.0); HEMOGLOBIN 11.7 G/DL (12.0-16.0); LYMPHOCYTES % (AUTO) 32.3 % (20.0-45.0); MEAN CORPUSCULAR VOLUME 98 FL (80-99); MONOCYTES % (AUTO) 6.7 % (1.0-10.0); NEUTROPHILS % (AUTO) 57.9 % (45.0-75.0); PLATELET COUNT 203 K/UL (150-450); RED BLOOD COUNT 3.74 M/UL (4.20-5.40); RED CELL DISTRIBUTION WIDTH 11.4 % (11.6-14.8); WHITE BLOOD COUNT 9.3 K/UL (4.8-10.8)
[2017-05-02 16:12] VITALS: BP 134/78
[2017-05-02 16:22] LABS: ANION GAP 6 mmol/L (5-15); BLOOD UREA NITROGEN 14 mg/dL (7-18); CALCIUM 9.2 MG/DL (8.5-10.1); CARBON DIOXIDE 28 MMOL/L (21-32); CHLORIDE 104 MMOL/L (98-107); CREATININE 1.2 MG/DL (0.55-1.30); POTASSIUM 4.1 MMOL/L (3.5-5.1); SODIUM 138 MMOL/L (136-145)
[2017-05-02 16:26] LABS: ALANINE AMINOTRANSFERASE 29 U/L (12-78); ALBUMIN 3.2 G/DL (3.4-5.0); ALBUMIN/GLOBULIN RATIO 0.6 (1.0-2.7); ALKALINE PHOSPHATASE 129 U/L (46-116); ASPARTATE AMINO TRANSFERASE 23 U/L (15-37); BILIRUBIN,TOTAL 0.3 MG/DL (0.2-1.0)
--- NOTE | 2017-05-02 17:18 | Diagnostic Imaging Report ---
Indication: Abdominal pain Technique: CT of the abdomen and pelvis utilizing automated exposure control with intravenous contrast. Venous scanning performed. CT dose: Total DLP 961.65 mGycm; CTDI vol 19.28 mGy Comparison: 11/13/2013 Findings: Dependent atelectasis noted in the lung bases. Heart within upper limits for normal size. No pericardial effusion. Liver, gallbladder, spleen, adrenal glands and pancreas are unremarkable in appearance. Kidneys enhance symmetrically. No urinary tract stones or hydronephrosis bilaterally. The bladder is slightly decompressed, limiting its evaluation but grossly unremarkable. Uterus and adnexa are unremarkable on CT and similar in appearance compared to the prior exam. There is no evidence of bowel obstruction. No free intraperitoneal fluid or air is seen. No appreciable focal or diffuse abnormal bowel wall thickening is seen. Appendix is normal. There is colonic diverticulosis without evidence to suggest acute diverticulitis. Abdominal aorta is normal in caliber with scattered atherosclerotic calcifications. No bulky abdominal/pelvic lymphadenopathy is noted. There is multilevel degenerative change of the spine with stable grade 1 anterolisthesis of L5 on S1. Vacuum disc phenomena noted at L4-5, L5-S1 and L1-L2. IMPRESSION: No evidence of acute intra-abdominal pathology. Diverticulosis without evidence of acute diverticulitis. Normal appendix. No evidence of bowel obstruction or inflammation. No evidence of obstructive uropathy. The CT scanner at [facility] is accredited by the [employer] and the scans are performed using protocols designed to limit radiation exposure to as low as reasonably achievable to attain images of sufficient resolution adequate for diagnostic evaluation.
[2017-05-02] MEDS ORDERED: PEPCID40 MG PO (18:09)
[2017-05-02] MEDS ORDERED: TYLENOL EXTRA500 MG ORAL (18:09)
[2017-05-02 18:28] VITALS: BP 134/78
--- NOTE | 2017-05-08 15:23 | Cardiology Report ---
APPROVED REPORT EKG Measurement Heart [id number] Sinus rhythm with 1st degree AV block Possible Left atrial enlargement Anterior infarct, age undetermined Abnormal ECG
[2017-06-24] MEDS ORDERED: FUROSEMIDE20 M1 ORAL (09:35)
[2017-06-24] MEDS ORDERED: PHENERGAN SUPP25 MG RECTAL (09:35)
[2017-06-24] MEDS ORDERED: CLOBETASOL PRO0.5 GM MC (09:35)
[2017-06-24] MEDS ORDERED: FOLIC ACID1 MG ORAL (09:35)
[2017-06-24] MEDS ORDERED: POTASSIUM CHLO10 ME2 PO (09:35)
[2017-06-24] MEDS ORDERED: SPIRONOLACTONE1 EACH ORAL (09:35)
== END 2017-05-02 18:28 | disposition home or self-care (01) ==
LOC: EMR 14:20
DX: R10.30 Lower abdominal pain, unspecified (principal); I11.0 Hypertensive heart disease with heart failure; I50.9 Heart failure, unspecified; J44.9 Chronic obstructive pulmonary disease, unspecified; Z86.73 Personal history of transient ischemic attack (TIA), and cerebral infarction without residual deficits; K57.30 Diverticulosis of large intestine without perforation or abscess without bleeding
CPT/HCPCS: 36415; 74177; 80053; 81003; 83690; 85025; 93005; 99284; Q9967

== ENCOUNTER 2017-06-24 09:44 | Inpatient (IN) | payer MEDICARE, MEDICAID ==
[~2017-06-24] VITALS: Ht 170.2 cm; Wt 72.6 kg
[~2017-06-24 09:44] MED LIST changes: +CLOBETASOL PRO0.5 GM MC; +FOLIC ACID1 MG ORAL; +FUROSEMIDE20 M1 ORAL; +PEPCID40 MG PO; +PHENERGAN SUPP25 MG RECTAL; +POTASSIUM CHLO10 ME2 PO
--- NOTE | 2017-06-24 09:51 | Emergency Room Report ---
History of Present Illness General Chief Complaint: Dyspnea/Respdistress Source: Patient, Medical Record, EMS Present Illness HPI Patient is a 67-year-old female brought in by EMS after increased difficulty breathing. patient was having increased difficulty breathing since last night. She reports having mild increased leg swelling. She presented prior history of CHF. She states that she does not take inhalers regularly.Shortness of breath was worsened by supine position Allergies: Coded Allergies: No Known Allergies (Verified , 05/05/16) Patient History Past Medical History: see triage record Reviewed Nursing Documentation: PMH: Agreed, PSxH: Agreed Nursing Documentation-PMH Past Medical History: No History, Except For Hx Hypertension: Yes Hx Pacemaker: No Hx COPD: Yes Hx Diabetes: No Hx Cancer: No Hx Gastrointestinal Problems: No Hx Neurological Problems: No Hx Cerebrovascular Accident: Yes Hx Neurologic Surgery: No Review of Systems All Other Systems: negative except mentioned in HPI Physical Exam Vital Signs Date Time Temp Pulse Resp B/P (MAP) Pulse Ox O2 Delivery O2 Flow Rate FiO2 06/24/17 09:30 98.1 100 20 181/112 100 Non-Rebreather 12.0 98.1 Sp02 EP Interpretation: reviewed, normal General Appearance: normal inspection, well appearing, no apparent distress, alert, GCS 15 Head: atraumatic ENT: normal ENT inspection, hearing grossly normal, normal voice Neck: normal inspection, full range of motion, supple, no bony tend Respiratory: normal inspection, lungs clear, normal breath sounds, no respiratory distress, no retraction, no wheezing Cardiovascular #1: regular rate, rhythm, no edema Gastrointestinal: normal inspection, normal bowel sounds, non tender, soft, no guarding, no hernia Genitourinary: no CVA tenderness Musculoskeletal: normal inspection, back normal, normal range of motion Neurologic: normal inspection, alert, oriented x3, responsive, electrical 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 Because of complexity of patient' s case laboratory testing and imaging studies were ordered.Patient is given IV Lasix. Laboratory testing showed elevated BNP.Patient appears to have acute exacerbation of her CHF.Dr. Tao was contacted for inpatient management due to need for inpatient monitoring and treatment. Labs Test 06/24/17 10:15 06/27/17 05:40 D-Dimer 1.79 mg/L FEU (0.00-0.49) Urine Color Pale yellow Urine Appearance Clear Urine pH 6.5 (4.5-8.0) Urine Specific [place] 1.010 (1.005-1.035) Urine Protein Negative (NEGATIVE) Urine Glucose (UA) Negative (NEGATIVE) Urine Ketones Negative (NEGATIVE) Urine Occult Blood Negative (NEGATIVE) Urine Nitrite Negative (NEGATIVE) Urine Bilirubin Negative (NEGATIVE) Urine Urobilinogen Normal MG/DL (0.0-1.0) Urine Leukocyte Esterase Negative (NEGATIVE) Hemoglobin A1c 6.4 % (4.3-6.0) Total Bilirubin 0.2 MG/DL (0.2-1.0) Aspartate Amino Transf (AST/SGOT) 25 U/L (15-37) Alanine Aminotransferase (ALT/SGPT) 19 U/L (12-78) Alkaline Phosphatase 129 U/L (46-116) Pro-B-Type Natriuretic Peptide 1585 pg/mL (0-125) Total Protein 8.2 G/DL (6.4-8.2) Albumin 3.1 G/DL (3.4-5.0) Globulin 5.1 g/dL Albumin/Globulin Ratio 0.6 (1.0-2.7) Lipase 80 U/L (73-393) Hepatitis B Surface Antibody <3.1 mIU/mL (Immunity>9.9) Hepatitis C Antibody 0.2 s/co ratio (0.0-0.9) HIV (1&2) Antibody Rapid Negative (NEGATIVE) White Blood Count 10.7 K/UL (4.8-10.8) Red Blood Count 4.17 M/UL (4.20-5.40) Hemoglobin 13.2 G/DL (12.0-16.0) Hematocrit 39.6 % (37.0-47.0) Mean Corpuscular Volume 95 FL (80-99) Mean Corpuscular Hemoglobin 31.5 PG (27.0-31.0) Mean Corpuscular Hemoglobin Concent 33.3 G/DL (32.0-36.0) Red Cell Distribution Width 12.4 % (11.6-14.8) Platelet Count 220 K/UL (150-450) Mean Platelet Volume 6.9 FL (6.5-10.1) Neutrophils (%) (Auto) 61.6 % (45.0-75.0) Lymphocytes (%) (Auto) 31.7 % (20.0-45.0) Monocytes (%) (Auto) 4.8 % (1.0-10.0) Eosinophils (%) (Auto) 1.3 % (0.0-3.0) Basophils (%) (Auto) 0.6 % (0.0-2.0) Sodium Level 132 MMOL/L (136-145) Potassium Level 3.7 MMOL/L (3.5-5.1) Chloride Level 99 MMOL/L (98-107) Carbon Dioxide Level 28 MMOL/L (21-32) Anion Gap 5 mmol/L (5-15) Blood Urea Nitrogen 26 mg/dL (7-18) Creatinine 1.5 MG/DL (0.55-1.30) Estimat Glomerular Filtration Rate 42.3 mL/min (>60) Glucose Level 112 MG/DL (74-106) Calcium Level 9.1 MG/DL (8.5-10.1) Troponin I 0.010 ng/mL (0.000-0.056) Triglycerides Level 158 MG/DL (30-150) Cholesterol Level 154 MG/DL (< 200) LDL Cholesterol 86 mg/dL (<100) HDL Cholesterol 53 MG/DL (40-60) Cholesterol/HDL Ratio 2.9 (3.3-4.4) EKG Diagnostic Results Rate: normal - 99 Rhythm: NSR ST Segments: other - qtc 503 ASA given to the pt in ED: No Rhythm Strip Diag. Results EP Interpretation: yes Rhythm: NSR - 96, no PVC's, no ectopy Last Vital Signs Date Time Temp Pulse Resp B/P (MAP) Pulse Ox O2 Delivery O2 Flow Rate FiO2 06/24/17 09:30 98.1 100 20 181/112 100 Non-Rebreather 12.0 98.1 Status: unchanged Disposition: ADMITTED INPATIENT Condition: Serious Scripts Verapamil HCl (Verapamil ER) 120 Mg Cap24h.pel 120 MG ORAL DAILY for 30 Days, #30 CAP Prov: Jesus Tao MD 06/27/17 Spironolactone (ALDACTONE) 25 Mg Tablet 25 MG ORAL DAILY for 30 Days, TAB Prov: Jesus Tao MD 06/27/17 Atorvastatin Calcium* (LIPITOR*) 20 Mg Tablet 20 MG ORAL BEDTIME for 30 Days, TAB Prov: Jesus Tao MD 06/27/17 Aspirin Ec* (ASPIRIN EC*) 81 Mg Tablet. 81 MG ORAL DAILY for 30 Days, TAB Prov: Jesus Tao MD 06/27/17 Kushal Landeros Jun 24, 2017 09:51
[2017-06-24] MEDS ORDERED: Albuterol/Ipratropium 3ml neb HHN ONE (10:00)
[2017-06-24] MEDS ORDERED: Solu-MEDROL 125mg Inj IVP ONE (10:00)
[2017-06-24 10:45] VITALS: BP 167/89
[2017-06-24 10:56] LABS: BASOPHILS % (AUTO) 0.7 % (0.0-2.0); EOSINOPHILS % (AUTO) 1.2 % (0.0-3.0); HEMATOCRIT 39.5 % (37.0-47.0); HEMOGLOBIN 12.9 G/DL (12.0-16.0); LYMPHOCYTES % (AUTO) 19.4 % (20.0-45.0); MEAN CORPUSCULAR VOLUME 95 FL (80-99); MONOCYTES % (AUTO) 4.4 % (1.0-10.0); NEUTROPHILS % (AUTO) 74.4 % (45.0-75.0); PLATELET COUNT 190 K/UL (150-450); RED BLOOD COUNT 4.15 M/UL (4.20-5.40); RED CELL DISTRIBUTION WIDTH 12.2 % (11.6-14.8); WHITE BLOOD COUNT 9.5 K/UL (4.8-10.8)
[2017-06-24 11:10] LABS: APPEARANCE,URINE CLEAR; BILIRUBIN, URINE NEGATIVE (NEGATIVE); COLOR,URINE PALE YELLOW; GLUCOSE, URINE (UA) NEGATIVE (NEGATIVE); KETONES,URINE NEGATIVE (NEGATIVE); LEUKOCYTE ESTERASE ,URINE NEGATIVE (NEGATIVE); NITRITE,URINE NEGATIVE (NEGATIVE); PH,URINE 6.5 (4.5-8.0); PROTEIN,URINE NEGATIVE (NEGATIVE); UROBILINOGEN,URINE NORMAL MG/DL (0.0-1.0)
[2017-06-24 11:11] LABS: ANION GAP 12 mmol/L (5-15); BLOOD UREA NITROGEN 17 mg/dL (7-18); CALCIUM 8.6 MG/DL (8.5-10.1); CARBON DIOXIDE 23 MMOL/L (21-32); CHLORIDE 104 MMOL/L (98-107); CREATININE 1.1 MG/DL (0.55-1.30); POTASSIUM 3.9 MMOL/L (3.5-5.1); SODIUM 139 MMOL/L (136-145)
[2017-06-24 11:21] LABS: ALANINE AMINOTRANSFERASE 19 U/L (12-78); ALBUMIN 3.1 G/DL (3.4-5.0); ALBUMIN/GLOBULIN RATIO 0.6 (1.0-2.7); ALKALINE PHOSPHATASE 129 U/L (46-116); ASPARTATE AMINO TRANSFERASE 25 U/L (15-37); BILIRUBIN,TOTAL 0.2 MG/DL (0.2-1.0)
--- NOTE | 2017-06-24 11:28 | Diagnostic Imaging Report ---
Indication: Dyspnea Comparison: 05/05/2016 A single view chest radiograph was obtained. Findings: The heart is enlarged. There is fine reticular interstitial opacities and slightly prominent vascularity. Consider mild CHF. Please correlate clinically. Bones are unremarkable. IMPRESSION: Suspected mild CHF
[2017-06-24 11:55] VITALS: BP 152/87
[2017-06-24 14:00] VITALS: BP 168/108
[2017-06-24 20:00] VITALS: BP 163/102
--- NOTE | 2017-06-24 20:44 | Cardiology Progress Note ---
Assessment/Plan Assessment/Plan The patient is seen and examined, full consult note will be dictated shortly. Objective Last 24 Hour Vital Signs Date Time Temp Pulse Resp B/P (MAP) Pulse Ox O2 Delivery O2 Flow Rate FiO2 06/24/17 20:00 97.7 90 20 163/102 93 97.7 06/24/17 16:00 75 06/24/17 14:20 98.1 99 23 168/108 94 Room Air 06/24/17 14:00 99 23 168/108 94 Room Air 06/24/17 11:55 96 12 152/87 95 Room Air 06/24/17 10:47 91 16 99 Room Air 06/24/17 10:45 97.8 97 31 167/89 95 Room Air 97.8 06/24/17 10:36 95 20 Room Air 06/24/17 10:34 95 20 Room Air 06/24/17 10:34 95 20 98 Room Air 06/24/17 09:30 98.1 100 20 181/112 100 Non-Rebreather 12.0 98.1 Laboratory Tests Test 06/24/17 10:15 White Blood Count 9.5 K/UL (4.8-10.8) Red Blood Count 4.15 M/UL (4.20-5.40) L Hemoglobin 12.9 G/DL (12.0-16.0) Hematocrit 39.5 % (37.0-47.0) Mean Corpuscular Volume 95 FL (80-99) Mean Corpuscular Hemoglobin 31.0 PG (27.0-31.0) Mean Corpuscular Hemoglobin Concent 32.6 G/DL (32.0-36.0) Red Cell Distribution Width 12.2 % (11.6-14.8) Platelet Count 190 K/UL (150-450) Mean Platelet Volume 6.7 FL (6.5-10.1) Neutrophils (%) (Auto) 74.4 % (45.0-75.0) Lymphocytes (%) (Auto) 19.4 % (20.0-45.0) L Monocytes (%) (Auto) 4.4 % (1.0-10.0) Eosinophils (%) (Auto) 1.2 % (0.0-3.0) Basophils (%) (Auto) 0.7 % (0.0-2.0) D-Dimer 1.79 mg/L FEU (0.00-0.49) H Urine Color Pale yellow Urine Appearance Clear Urine pH 6.5 (4.5-8.0) Urine Specific [place] 1.010 (1.005-1.035) Urine Protein Negative (NEGATIVE) Urine Glucose (UA) Negative (NEGATIVE) Urine Ketones Negative (NEGATIVE) Urine Occult Blood Negative (NEGATIVE) Urine Nitrite Negative (NEGATIVE) Urine Bilirubin Negative (NEGATIVE) Urine Urobilinogen Normal MG/DL (0.0-1.0) Urine Leukocyte Esterase Negative (NEGATIVE) Sodium Level 139 MMOL/L (136-145) Potassium Level 3.9 MMOL/L (3.5-5.1) Chloride Level 104 MMOL/L (98-107) Carbon Dioxide Level 23 MMOL/L (21-32) Anion Gap 12 mmol/L (5-15) Blood Urea Nitrogen 17 mg/dL (7-18) Creatinine 1.1 MG/DL (0.55-1.30) Estimat Glomerular Filtration Rate > 60 mL/min (>60) Glucose Level 108 MG/DL (74-106) H Hemoglobin A1c 6.4 % (4.3-6.0) H Calcium Level 8.6 MG/DL (8.5-10.1) Total Bilirubin 0.2 MG/DL (0.2-1.0) Aspartate Amino Transf (AST/SGOT) 25 U/L (15-37) Alanine Aminotransferase (ALT/SGPT) 19 U/L (12-78) Alkaline Phosphatase 129 U/L (46-116) H Troponin I 0.022 ng/mL (0.000-0.056) Pro-B-Type Natriuretic Peptide 1585 pg/mL (0-125) H Total Protein 8.2 G/DL (6.4-8.2) Albumin 3.1 G/DL (3.4-5.0) L Globulin 5.1 g/dL Albumin/Globulin Ratio 0.6 (1.0-2.7) L Lipase 80 U/L (73-393) Hepatitis B Surface Antibody Pending Hepatitis C Antibody Pending HIV (1&2) Antibody Rapid Negative (NEGATIVE) Microbiology Date/Time Source Procedure Growth Status 06/24/17 10:15 Nasal Nares Influenza Types A,B Antigen (BRENDA) - Final Complete MELVIN ELISE Jun 24, 2017 20:44
[2017-06-24] MEDS: Atorvastatin 20mg tab ORAL SCH (22:12)
--- NOTE | 2017-06-25 04:30 | Consultation ---
DATE OF CONSULTATION: 06/24/2017 CARDIOLOGY CONSULTATION CONSULTING PHYSICIAN: Kendall Barrera M.D. REFERRING PHYSICIAN: Jesus Tao M.D. REASON FOR CONSULTATION: Management of shortness of breath. HISTORY OF PRESENT ILLNESS: The patient is a very pleasant 67-year-old black Portuguese, who was brought in by EMS after increased difficulty breathing since 06/23/2017. The patient has been complaining about four-pillow orthopnea, paroxysmal nocturnal dyspnea, as well as progressive worsening of shortness of breath and indeed leg edema in the past few days. She has history of congestive heart failure in the past. She has been admitted to this hospital. Review of the old record had shown the patient had hypertensive heart disease with normal left ventricular systolic function and left ventricular ejection fraction approximately 55% to 60%. This last echocardiography in this facility was from 2013. It seems that the patient had acute diastolic heart failure at this time and accelerated hypertension was culprit for the condition. She is not sure whether she had any ischemic workup for the above. On arrival to the emergency department, the initial 12-lead electrocardiogram did not show any evidence of ST and T-wave abnormalities. There was one stress test done in [facility] in 2013, which showed no evidence of ischemia. Initial blood pressure at the time of arrival to the hospital was 181/112 mmHg. The patient was admitted to the telemetry for further evaluation and management. PAST MEDICAL HISTORY: 1. Hypertensive heart disease with left ventricular ejection fraction of approximately 55%. 2. History of heart failure with preserved ejection fraction. 3. History of hypertension. 4. History of COPD. 5. History of cerebrovascular accident. 6. History of strabismus. PAST SURGICAL HISTORY: None. MEDICATIONS: List of medications at home, clobetasol propionate powder, folic acid 1 mg p.o. daily, furosemide 20 mg p.o. daily, potassium chloride 10 mEq p.o. daily, promethazine 25 mg rectal every six hours p.r.n. nausea and vomiting, and spironolactone/hydrochlorothiazide 25/25 one tablet p.o. daily. ALLERGIES: No known drug allergies. HABITS: The patient is a former crack cocaine user in the past. Currently, denies any tobacco, alcohol, or illicit drug use. REVIEW OF SYSTEMS: HEENT: Denies any headache, diplopia, or blurred vision. CONSTITUTIONAL: Denies any fever or chills. Complains of diaphoresis and sweating profusely. CARDIOVASCULAR: Denies any chest pain, however, she has got shortness of breath, leg edema, PND, and four-pillow orthopnea. Denies any syncope or palpitation. PULMONARY: Denies any cough, hemoptysis, or wheezing. GASTROINTESTINAL: Denies any nausea, vomiting, diarrhea, constipation, abdominal pain, or GI bleed. GENITOURINARY: Denies any hematuria, dysuria, or incontinence. NEUROLOGIC: Denies any motor dysfunction, sensory deficit, or altered speech at this time. PHYSICAL EXAMINATION: VITAL SIGNS: Blood pressure at the time of arrival to the hospital 181/112, respirations 20, pulse of 100, temperature 98.1 degrees Fahrenheit, and O2 saturation 100% on non-rebreather mask. GENERAL: The patient is a very pleasant 67-year-old female, in no apparent respiratory distress, appears to be diaphoretic. HEENT: Atraumatic and normocephalic. ENT, pupils are equal, round, and reactive to light and accommodation. Extraocular muscles intact. NECK: JVP about 5 cm. No carotid bruits. Carotid upstrokes 2+ bilaterally. CARDIOVASCULAR: Normal S1 and S2. There is presence of S3. PMI is at fourth intercostal space at the anterior axillary line. LUNGS: Clear to auscultation bilaterally. ABDOMEN: Soft, nontender, and nondistended. No hepatosplenomegaly. Positive bowel sounds. EXTREMITIES: No evidence of edema, clubbing, or cyanosis. LABORATORY AND DIAGNOSTIC DATA: Laboratory findings, sodium is 139, potassium 3.9, chloride 104, bicarbonate 33, BUN of 17, creatinine 1.1, glucose is 108, calcium is 8.6, and hemoglobin A1c 6.4. Troponin I was 0.02. ProBNP was 1585. D-dimer was 1.79. WBC is 9.5, hemoglobin 12.9, hematocrit 39.5, and platelet count is 190,000. Chest x-ray showed cardiomegaly with mild pulmonary edema. ASSESSMENT AND PLAN: The patient is a very pleasant 67-year-old female, seen in Cardiology consultation at request of Dr. Tao. 1. Acute heart failure, most likely heart failure with preserved ejection fraction, as she had similar presentation in 2013. We will like to await the report of 2D echocardiography for assessment of LV systolic function. I would like to control the blood pressure with verapamil 180 mg daily. The patient will be continued on diuretic. I will check BNP on a daily basis. Creatinine will also be checked on a daily basis to ensure that we do not burden the kidneys by over diuresing her. Further therapeutic and diagnostic decision will be based on results of the echocardiography. 2. History of nonischemic stress test at [facility] in 2013. 3. History of COPD. 4. History of CVA. The patient will be continued on combination of aspirin and statins. I would like to thank, Dr. Tao, for allowing me to participate in the care of this patient. Kendall Barrera M.D. DR: MARCEL JOB#: [id number] CC:
[2017-06-25 07:20] LABS: BASOPHILS % (AUTO) 0.1 % (0.0-2.0); HEMATOCRIT 37.1 % (37.0-47.0); HEMOGLOBIN 12.7 G/DL (12.0-16.0); LYMPHOCYTES % (AUTO) 17.4 % (20.0-45.0); MEAN CORPUSCULAR VOLUME 93 FL (80-99); MONOCYTES % (AUTO) 2.3 % (1.0-10.0); NEUTROPHILS % (AUTO) 80.2 % (45.0-75.0); PLATELET COUNT 213 K/UL (150-450); RED BLOOD COUNT 3.97 M/UL (4.20-5.40); WHITE BLOOD COUNT 8.4 K/UL (4.8-10.8)
[2017-06-25 08:00] VITALS: BP 159/83
[2017-06-25 08:08] LABS: ANION GAP 9 mmol/L (5-15); BLOOD UREA NITROGEN 22 mg/dL (7-18); CALCIUM 9.3 MG/DL (8.5-10.1); CARBON DIOXIDE 25 MMOL/L (21-32); CHLORIDE 100 MMOL/L (98-107); CHOLESTEROL 167 MG/DL (< 200); CREATININE 1.4 MG/DL (0.55-1.30); HDL CHOLESTEROL 71 MG/DL (40-60); POTASSIUM 3.8 MMOL/L (3.5-5.1); SODIUM 134 MMOL/L (136-145); TRIGLYCERIDES 74 MG/DL (30-150)
[2017-06-25] MEDS ORDERED: Promethazine/Codeine 5ml UD ORAL PRN (08:30)
--- NOTE | 2017-06-25 08:36 | Consultation ---
History of Present Illness General Date patient seen: Jun 25, 2017 Chief Complaint: Dyspnea/Respdistress Reason for Consultation: dyspnea Present Illness HPI 67-year-old female with hx of COPD, CHf brought in by EMS after increased difficulty breathing since last night. She reports having mild increased leg swelling. She does not take inhalers regularly.Shortness of breath was worsened by supine position. She was diagnosed to have acute exacerbation of COPd and CHF and admitted to telemetry for further management. She didn't have any fever, chill or any flu- like symptoms. She is c/o of some chest tightness. Allergies: Coded Allergies: No Known Allergies (Verified , 05/05/16) Medication History Scheduled Folic Acid* (Folic Acid*), 1 MG ORAL DAILY, (Reported) Furosemide* (Lasix*), 20 MG ORAL DAILY, (Reported) Spironolact/Hydrochlorothiazid (Spironolactone-Hctz 25-25 Tab), 1 TAB ORAL DAILY , (Reported) Scheduled PRN Promethazine HCl (Promethegan), 25 MG RECTAL Q6H PRN for Nausea & Vomiting, ( Reported) Miscellaneous Medications Clobetasol Propionate (Clobetasol Propionate), 0.5 GM MC, (Reported) Potassium Chloride (Potassium Chloride), 10 MEQ PO, (Reported) Discontinued Medications Acetaminophen* (Tylenol Extra Strength*), 500 MG ORAL Q8H PRN for Prn Headache/ Temp > 101 Discontinued Reason: Pt stopped taking med Acetaminophen* (Tylenol Extra Strength*), 500 MG ORAL Q6H Discontinued Reason: Pt stopped taking med Acetaminophen* (Tylenol Extra Strength*), 500 MG ORAL Q8H PRN for Prn Headache/ Temp > 101 Discontinued Reason: Pt stopped taking med Acyclovir* (Zovirax*), 800 MG ORAL FIVE TIMES A DAY Discontinued Reason: Pt stopped taking med Amoxicillin* (Amoxil*), 500 MG ORAL THREE TIMES A DAY Discontinued Reason: Pt stopped taking med Atorvastatin Calcium* (Lipitor*), 20 MG ORAL BEDTIME Discontinued Reason: Pt stopped taking med Carvedilol (Coreg), 6.25 MG ORAL EVERY 12 HOURS, (Reported) Discontinued Reason: Pt stopped taking med Cetirizine Hcl (Zyrtec), 10 MG ORAL DAILY Discontinued Reason: Pt stopped taking med Cholecalciferol (Vitamin D3) (D3-50), 400 UNIT PO, (Reported) Discontinued Reason: Pt stopped taking med Clopidogrel Bisulfate* (Plavix*), 75 MG ORAL DAILY Discontinued Reason: Pt stopped taking med D-Methorphan Hb/Prometh Hcl* (Promethazine-Dm Syrup*), 5 ML ORAL Q4H PRN for For Cough Discontinued Reason: Pt stopped taking med Famotidine (Pepcid), 40 MG PO DAILY Discontinued Reason: Pt stopped taking med Folic Acid (Folic Acid), 1 MG PO, (Reported) Discontinued Reason: Pt stopped taking med Furosemide (Furosemide), 20 MG ORAL DAILY, (Reported) Discontinued Reason: Pt stopped taking med Hydrocodone Bit/Acetaminophen 5-325* ([place] 5-325*), 1 TAB ORAL Q6H PRN for For Pain, (Reported) Discontinued Reason: Pt stopped taking med Levofloxacin* (Levaquin*), 500 MG ORAL Q24H Discontinued Reason: Pt stopped taking med Lisinopril* (Prinivil*), 10 MG ORAL DAILY Discontinued Reason: Pt stopped taking med Metoprolol Tartrate (Metoprolol Tartrate), 25 MG ORAL EVERY 12 HOURS Discontinued Reason: Pt stopped taking med Nitrofurantoin Monohyd/M-Cryst* (Macrobid 100 Mg*), 100 MG ORAL BID Discontinued Reason: Pt stopped taking med Nitrofurantoin Monohyd/M-Cryst* (Macrobid 100 Mg*), 100 MG ORAL EVERY 12 HOURS Discontinued Reason: Pt stopped taking med Nitroglycerin (Nitrostat), 0.4 MG SL Q5M PRN for Prn Chest Pain Discontinued Reason: Pt stopped taking med Ofloxacin (Ocuflox), 2 DROP OP QID Discontinued Reason: Pt stopped taking med Polycarbophil (Replens), 6.7 GM VG BID Discontinued Reason: Pt stopped taking med Potassium Bicarbonate/Cit Ac (Potassium 25 Meq Tablet Eff), 25 MEQ PO, (Reported ) Discontinued Reason: Pt stopped taking med Prednisone* (Prednisone*), 10 MG ORAL DAILY Discontinued Reason: Pt stopped taking med Promethazine HCl/Codeine (Prometh-Codein 6.25-10 mg/5 ml), 5 ML PO, (Reported) Discontinued Reason: Pt stopped taking med Spironolact/Hydrochlorothiazid (Spironolactone-Hctz 25-25 Tab), 1 TAB ORAL DAILY , (Reported) Discontinued Reason: Pt stopped taking med Trimethoprim/Sulfamethoxazole 160/800* (Bactrim Ds Tablet*), 1 TAB ORAL TWICE A DAY Discontinued Reason: Pt stopped taking med Valsartan (Diovan), 80 MG ORAL DAILY, (Reported) Discontinued Reason: Pt stopped taking med Patient History Healthcare decision maker Resuscitation status Advanced Directive on File Past Medical/Surgical History Past Medical/Surgical History: (1) History of CVA (cerebrovascular accident) (2) CAD (coronary artery disease) (3) COPD (chronic obstructive pulmonary disease) Review of Systems Respiratory: Reports: shortness of breath Physical Exam General Appearance: WD/WN Lines, tubes and drains: peripheral HEENT: normocephalic, atraumatic Neck: non-tender, normal alignment Respiratory/Chest: chest wall non-tender, lungs clear Breasts: no masses Cardiovascular/Chest: normal peripheral pulses Abdomen: normal bowel sounds, non tender Genitourinary/Rectal: normal genital exam Extremities: normal range of motion Skin Exam: normal pigmentation 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 Last 24 Hour Vital Signs Date Time Temp Pulse Resp B/P (MAP) Pulse Ox O2 Delivery O2 Flow Rate FiO2 06/25/17 04:02 83 06/25/17 00:01 86 06/24/17 22:09 93 163/102 06/24/17 20:00 97.7 90 20 163/102 93 97.7 06/24/17 19:50 87 06/24/17 16:00 75 06/24/17 14:20 98.1 99 23 168/108 94 Room Air 06/24/17 14:00 99 23 168/108 94 Room Air 06/24/17 11:55 96 12 152/87 95 Room Air 06/24/17 10:47 91 16 99 Room Air 06/24/17 10:45 97.8 97 31 167/89 95 Room Air 97.8 06/24/17 10:36 95 20 Room Air 06/24/17 10:34 95 20 Room Air 06/24/17 10:34 95 20 98 Room Air 06/24/17 09:30 98.1 100 20 181/112 100 Non-Rebreather 12.0 98.1 Intake and Output 06/24/17 06/25/17 19:00 07:00 Intake Total 120 ml 240 ml Output Total 500 ml Balance -380 ml 240 ml Intake Oral 120 ml 240 ml Output Urine Total 500 ml # Voids 1 # Bowel Movements 2 2 Laboratory Tests Test 06/24/17 10:15 06/25/17 06:15 White Blood Count 9.5 K/UL (4.8-10.8) 8.4 K/UL (4.8-10.8) Red Blood Count 4.15 M/UL (4.20-5.40) L 3.97 M/UL (4.20-5.40) L Hemoglobin 12.9 G/DL (12.0-16.0) 12.7 G/DL (12.0-16.0) Hematocrit 39.5 % (37.0-47.0) 37.1 % (37.0-47.0) Mean Corpuscular Volume 95 FL (80-99) 93 FL (80-99) Mean Corpuscular Hemoglobin 31.0 PG (27.0-31.0) 32.0 PG (27.0-31.0) H Mean Corpuscular Hemoglobin Concent 32.6 G/DL (32.0-36.0) 34.3 G/DL (32.0-36.0) Red Cell Distribution Width 12.2 % (11.6-14.8) 12.0 % (11.6-14.8) Platelet Count 190 K/UL (150-450) 213 K/UL (150-450) Mean Platelet Volume 6.7 FL (6.5-10.1) 6.7 FL (6.5-10.1) Neutrophils (%) (Auto) 74.4 % (45.0-75.0) 80.2 % (45.0-75.0) H Lymphocytes (%) (Auto) 19.4 % (20.0-45.0) L 17.4 % (20.0-45.0) L Monocytes (%) (Auto) 4.4 % (1.0-10.0) 2.3 % (1.0-10.0) Eosinophils (%) (Auto) 1.2 % (0.0-3.0) 0.0 % (0.0-3.0) Basophils (%) (Auto) 0.7 % (0.0-2.0) 0.1 % (0.0-2.0) D-Dimer 1.79 mg/L FEU (0.00-0.49) H Urine Color Pale yellow Urine Appearance Clear Urine pH 6.5 (4.5-8.0) Urine Specific Ideal 1.010 (1.005-1.035) Urine Protein Negative (NEGATIVE) Urine Glucose (UA) Negative (NEGATIVE) Urine Ketones Negative (NEGATIVE) Urine Occult Blood Negative (NEGATIVE) Urine Nitrite Negative (NEGATIVE) Urine Bilirubin Negative (NEGATIVE) Urine Urobilinogen Normal MG/DL (0.0-1.0) Urine Leukocyte Esterase Negative (NEGATIVE) Sodium Level 139 MMOL/L (136-145) 134 MMOL/L (136-145) L Potassium Level 3.9 MMOL/L (3.5-5.1) 3.8 MMOL/L (3.5-5.1) Chloride Level 104 MMOL/L (98-107) 100 MMOL/L (98-107) Carbon Dioxide Level 23 MMOL/L (21-32) 25 MMOL/L (21-32) Anion Gap 12 mmol/L (5-15) 9 mmol/L (5-15) Blood Urea Nitrogen 17 mg/dL (7-18) 22 mg/dL (7-18) H Creatinine 1.1 MG/DL (0.55-1.30) 1.4 MG/DL (0.55-1.30) H Estimat Glomerular Filtration Rate > 60 mL/min (>60) 45.8 mL/min (>60) Glucose Level 108 MG/DL (74-106) H 164 MG/DL (74-106) H Hemoglobin A1c 6.4 % (4.3-6.0) H Calcium Level 8.6 MG/DL (8.5-10.1) 9.3 MG/DL (8.5-10.1) Total Bilirubin 0.2 MG/DL (0.2-1.0) Aspartate Amino Transf (AST/SGOT) 25 U/L (15-37) Alanine Aminotransferase (ALT/SGPT) 19 U/L (12-78) Alkaline Phosphatase 129 U/L (46-116) H Troponin I 0.022 ng/mL (0.000-0.056) Pending Pro-B-Type Natriuretic Peptide 1585 pg/mL (0-125) H Total Protein 8.2 G/DL (6.4-8.2) Albumin 3.1 G/DL (3.4-5.0) L Globulin 5.1 g/dL Albumin/Globulin Ratio 0.6 (1.0-2.7) L Lipase 80 U/L (73-393) Hepatitis B Surface Antibody <3.1 mIU/mL (Immunity>9.9) Hepatitis C Antibody 0.2 s/co ratio (0.0-0.9) HIV (1&2) Antibody Rapid Negative (NEGATIVE) Triglycerides Level 74 MG/DL (30-150) Cholesterol Level 167 MG/DL (< 200) LDL Cholesterol 101 mg/dL (<100) H HDL Cholesterol 71 MG/DL (40-60) H Cholesterol/HDL Ratio 2.4 (3.3-4.4) L Microbiology Date/Time Source Procedure Growth Status 06/24/17 10:15 Nasal Nares Influenza Types A,B Antigen (BRENDA) - Final Complete Height (Feet): 5 Height (Inches): 7.00 Weight (Pounds): 160 Medications Current Medications Medications (Trade) Dose Ordered Sig/Marline Route PRN Reason Start Time Stop Time Status Last Admin Dose Admin Acetaminophen (Tylenol) 650 mg Q4H PRN ORAL Mild Pain/Temp > 100.5 06/24/17 15:30 07/24/17 15:29 06/24/17 20:25 Aspirin (Ecotrin) 81 mg DAILY ORAL 06/25/17 09:00 07/25/17 08:59 Atorvastatin Calcium (Lipitor) 20 mg BEDTIME ORAL 06/24/17 22:30 07/24/17 22:29 06/24/17 22:12 Enoxaparin Sodium (Lovenox) 40 mg DAILY SUBQ 06/25/17 09:00 07/25/17 08:59 Folic Acid (Folate) 1 mg DAILY ORAL 06/25/17 09:00 07/25/17 08:59 Furosemide (Lasix) 40 mg DAILY IV 06/25/17 09:00 07/25/17 08:59 Ondansetron HCl (Zofran) 4 mg Q6H PRN IVP Nausea & Vomiting 06/24/17 15:30 07/24/17 15:29 Pantoprazole (Protonix) 40 mg DAILY IVP 06/25/17 09:00 07/25/17 08:59 Spironolactone (Aldactone) 25 mg DAILY ORAL 06/25/17 09:00 07/25/17 08:59 Verapamil HCl (Calan SR) 120 mg DAILY ORAL 06/24/17 22:00 07/24/17 21:59 06/24/17 22:09 Assessment/Plan Problem List: (1) COPD exacerbation ICD Codes: J44.1 - Chronic obstructive pulmonary disease with (acute) exacerbation SNOMED: 952237434 (2) Acute bronchitis ICD Codes: J20.9 - Acute bronchitis,unspecified SNOMED: 19562037 (3) CHF (congestive heart failure) ICD Codes: I50.9 - Heart failure, unspecified SNOMED: 72367200 (4) History of CVA (cerebrovascular accident) ICD Codes: Z86.73 - Personal history of transient ischemic attack (TIA), and cerebral infarction without residual deficits SNOMED: 038041056 (5) CAD (coronary artery disease) ICD Codes: I25.10 - Atherosclerotic heart disease of [place] coronary artery without angina pectoris SNOMED: 47051629 Assessment/Plan respiratory treatment check sputum short course of abx cardiology to see serial ekg, troponin echo watch electrolytes CATHLEEN PENA Jun 25, 2017 08:36
[2017-06-25] MEDS: Pantoprazole Inj IVP SCH (08:39)
[2017-06-25] MEDS: Aspirin EC 81mg tab ORAL SCH (08:39)
[2017-06-25] MEDS: Spironolactone 25mg tab ORAL SCH (08:40)
[2017-06-25] MEDS: Enoxaparin 40mg Inj SUBQ SCH (08:41)
[2017-06-25] MEDS: Theophylline ER 100mg ORAL SCH ×2 (09:32→20:59)
--- NOTE | 2017-06-25 12:47 | History & Physical ---
History and Physical History & Physicial seen and examined. Dictation completed Jesus Tao MD Jun 25, 2017 12:47
--- NOTE | 2017-06-25 12:49 | General Progress Note ---
Assessment/Plan Status: stable Assessment/Plan 1- CHF exacerbation 2- HTN uncontrolled 3- HLP 4- CVA ( detailes unknown) Plan: cardiology ( Dr Barrera ) Pulmonary ( Dr Hameed) consulted Subjective ROS Limited/Unobtainable: No Constitutional: Reports: no symptoms HEENT: Reports: no symptoms Cardiovascular: Reports: no symptoms Respiratory: Reports: no symptoms Allergies: Coded Allergies: No Known Allergies (Verified , 05/05/16) Objective Last 24 Hour Vital Signs Date Time Temp Pulse Resp B/P (MAP) Pulse Ox O2 Delivery O2 Flow Rate FiO2 06/25/17 08:39 87 159/83 06/25/17 08:00 97.3 87 18 159/83 97 97.3 06/25/17 04:02 83 06/25/17 00:01 86 06/24/17 22:09 93 163/102 06/24/17 20:00 97.7 90 20 163/102 93 97.7 06/24/17 19:50 87 06/24/17 16:00 75 06/24/17 14:20 98.1 99 23 168/108 94 Room Air 06/24/17 14:00 99 23 168/108 94 Room Air Intake and Output 06/24/17 06/25/17 19:00 07:00 Intake Total 120 ml 240 ml Output Total 500 ml Balance -380 ml 240 ml Intake Oral 120 ml 240 ml Output Urine Total 500 ml # Voids 1 # Bowel Movements 2 2 Laboratory Tests 06/25/17 06:15: White Blood Count 8.4, Red Blood Count 3.97L, Hemoglobin 12.7, Hematocrit 37.1, Mean Corpuscular Volume 93, Mean Corpuscular Hemoglobin 32.0H, Mean Corpuscular Hemoglobin Concent 34.3, Red Cell Distribution Width 12.0, Platelet Count 213, Mean Platelet Volume 6.7, Neutrophils (%) (Auto) 80.2H, Lymphocytes (%) (Auto) 17.4L, Monocytes (%) (Auto) 2.3, Eosinophils (%) (Auto) 0.0, Basophils (%) (Auto ) 0.1, Sodium Level 134L, Potassium Level 3.8, Chloride Level 100, Carbon Dioxide Level 25, Anion Gap 9, Blood Urea Nitrogen 22H, Creatinine 1.4H, Estimat Glomerular Filtration Rate 45.8, Glucose Level 164H, Calcium Level 9.3, Troponin I 0.022, Triglycerides Level 74, Cholesterol Level 167, LDL Cholesterol 101H, HDL Cholesterol 71H, Cholesterol/HDL Ratio 2.4L Height (Feet): 5 Height (Inches): 7.00 Weight (Pounds): 160 General Appearance: no apparent distress EENT: PERRL/EOMI Neck: supple Cardiovascular: normal rate, systolic murmur, gallop/S3 Respiratory/Chest: rhonchi - bilaterally Abdomen: soft Extremities: non-tender 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
[2017-06-25 20:00] VITALS: BP 132/96
--- NOTE | 2017-06-25 20:45 | History and Physical Report ---
DATE OF ADMISSION: 06/24/2017 SOURCE OF INFORMATION: Patient and EMR. HISTORY OF PRESENT ILLNESS: The patient is a pleasant 67-year-old female. The patient presented with interval increase in the shortness of breath. The patient denies any chest pain. Denies any abnormal bleeding. Denies any nausea or vomitus. Denies any diarrhea or constipation. The patient had a prior history of CHF. The patient reported that shortness of breath gets worse by the lying down position. Denies any fever or chills. PAST MEDICAL HISTORY: CHF, CVA, COPD, and hypertension. MEDICATIONS: Current hospital medications reviewed and reconciled as follows: Verapamil 120 mg daily, spironolactone 25 mg daily, and aspirin 81 mg daily. ALLERGIES: NKDA. FAMILY HISTORY: Noncontributory. SOCIAL HISTORY: The patient lives with her daughter. The patient denies smoking, drinking, or alcohol abuse. REVIEW OF SYSTEMS: All 12 elements of review of systems reviewed. Pertinent positive and negative are detailed as above. PHYSICAL EXAMINATION: VITAL SIGNS: Blood pressure 160/80, temperature 98.2, pulse oximetry 98% on room air, and respiratory rate 18. HEAD AND NECK: Atraumatic and normocephalic. CHEST: Positive for bronchial breathing sounds in the basal segments of the lung. HEART: S1 and S2. Regular rate and rhythm. ABDOMEN: Soft. No organomegaly. MUSCULOSKELETAL: No gross focal lateralized motor deficit. NEUROLOGY: The patient is awake, alert, and oriented x3. IMAGING: Chest x-ray dated 06/24/2017 shows mild interstitial edema. LABORATORY DATA: Labs dated 06/24/2017 shows WBC 5.5, hemoglobin 12.9, and platelets of 190,000. Sodium 139, potassium 3.9, BUN 17, and creatinine 1.1. Troponin x1 negative. BNP 1500. LDL of 101. ASSESSMENT AND PLAN: 1. Congestive heart failure exacerbation. 2. Hypertension. 3. Hyperlipidemia. 4. Gastrointestinal and deep venous thrombosis prophylaxis. 5. Cerebrovascular accident, history, details unknown. PLAN OF CARE: We will continue with the intravenous diuresis. We will optimize the blood pressure medications according to the vital signs. A 2D echo, Cardiology consult. Pulmonary consult. COMMENTS: The time of this dictation does not reflect the actual time of encounter. Nailaammad Yris Tao DR: MORIAH JOB#: [id number] CC: YESSENIA
[2017-06-25] MEDS: Atorvastatin 20mg tab ORAL SCH (20:59)
[2017-06-26] VITALS: BP 124/74
[2017-06-26 04:00] VITALS: BP 144/92
[2017-06-26 08:00] VITALS: BP 140/77
[2017-06-26 08:38] LABS: BASOPHILS % (AUTO) 0.4 % (0.0-2.0); EOSINOPHILS % (AUTO) 0.4 % (0.0-3.0); HEMATOCRIT 36.6 % (37.0-47.0); HEMOGLOBIN 12.3 G/DL (12.0-16.0); LYMPHOCYTES % (AUTO) 31.4 % (20.0-45.0); MEAN CORPUSCULAR VOLUME 94 FL (80-99); MONOCYTES % (AUTO) 5.4 % (1.0-10.0); NEUTROPHILS % (AUTO) 62.4 % (45.0-75.0); PLATELET COUNT 211 K/UL (150-450); RED CELL DISTRIBUTION WIDTH 12.1 % (11.6-14.8); WHITE BLOOD COUNT 12.1 K/UL (4.8-10.8)
[2017-06-26 09:12] LABS: ANION GAP 8 mmol/L (5-15); BLOOD UREA NITROGEN 25 mg/dL (7-18); CALCIUM 8.7 MG/DL (8.5-10.1); CARBON DIOXIDE 25 MMOL/L (21-32); CHLORIDE 101 MMOL/L (98-107); CHOLESTEROL 154 MG/DL (< 200); CREATININE 1.3 MG/DL (0.55-1.30); HDL CHOLESTEROL 54 MG/DL (40-60); POTASSIUM 3.6 MMOL/L (3.5-5.1); SODIUM 134 MMOL/L (136-145); TRIGLYCERIDES 125 MG/DL (30-150)
--- NOTE | 2017-06-26 09:14 | General Progress Note ---
Assessment/Plan Status: stable Assessment/Plan 1. Congestive heart failure exacerbation. 2. Hypertension. 3. Hyperlipidemia. 4. Gastrointestinal and deep venous thrombosis prophylaxis. 5. Cerebrovascular accident, history of, details unknown. Plan: cardiology ( Dr Barrera ) Pulmonary ( Dr Hameed) notes are reviewed continue optimization of medications Subjective ROS Limited/Unobtainable: No Constitutional: Reports: no symptoms HEENT: Reports: no symptoms Cardiovascular: Reports: no symptoms Respiratory: Reports: no symptoms Allergies: Coded Allergies: No Known Allergies (Verified , 05/05/16) Objective Last 24 Hour Vital Signs Date Time Temp Pulse Resp B/P (MAP) Pulse Ox O2 Delivery O2 Flow Rate FiO2 06/26/17 04:00 87 06/26/17 04:00 97.7 80 20 144/92 95 Room Air 97.7 06/26/17 00:00 98.5 79 20 124/74 96 Room Air 98.5 06/26/17 00:00 93 06/25/17 20:00 86 06/25/17 20:00 97.9 68 20 132/96 97 Room Air 97.9 06/25/17 16:00 97 06/25/17 12:00 83 Intake and Output 06/25/17 06/26/17 19:00 07:00 Intake Total 708 ml Balance 708 ml Intake Oral 708 ml # Voids 2 6 Laboratory Tests 06/26/17 06:52: White Blood Count 12.1H, Red Blood Count 3.90L, Hemoglobin 12.3, Hematocrit 36.6L, Mean Corpuscular Volume 94, Mean Corpuscular Hemoglobin 31.6H, Mean Corpuscular Hemoglobin Concent 33.7, Red Cell Distribution Width 12.1, Platelet Count 211, Mean Platelet Volume 6.8, Neutrophils (%) (Auto) 62.4, Lymphocytes (% ) (Auto) 31.4, Monocytes (%) (Auto) 5.4, Eosinophils (%) (Auto) 0.4, Basophils ( %) (Auto) 0.4, Sodium Level [Pending], Potassium Level [Pending], Chloride Level [Pending], Carbon Dioxide Level [Pending], Blood Urea Nitrogen [Pending], Creatinine [Pending], Estimat Glomerular Filtration Rate [Pending], Glucose Level [Pending], Calcium Level [Pending], Troponin I [Pending], Triglycerides Level [Pending], Cholesterol Level [Pending], LDL Cholesterol [Pending], HDL Cholesterol [Pending], Cholesterol/HDL Ratio [Pending] Height (Feet): 5 Height (Inches): 7.00 Weight (Pounds): 160 General Appearance: WD/WN EENT: PERRL/EOMI Neck: supple Cardiovascular: normal rate Respiratory/Chest: lungs clear Abdomen: soft Extremities: non-tender 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
[2017-06-26] MEDS: Aspirin EC 81mg tab ORAL SCH (09:55)
[2017-06-26] MEDS: Theophylline ER 100mg ORAL SCH ×2 (09:55→21:03)
[2017-06-26] MEDS: Pantoprazole Inj IVP SCH (09:56)
[2017-06-26] MEDS: Spironolactone 25mg tab ORAL SCH (09:56)
[2017-06-26] MEDS: Enoxaparin 40mg Inj SUBQ SCH (09:59)
[2017-06-26 12:00] VITALS: BP 143/88
--- NOTE | 2017-06-26 13:09 | Pulmonology Progress Note ---
Assessment/Plan Problems: (1) COPD exacerbation (2) Acute bronchitis (3) CHF (congestive heart failure) (4) History of CVA (cerebrovascular accident) (5) CAD (coronary artery disease) Assessment/Plan improving on Lasix 40 qD iv on theophyline getting better titrate fio2 to sat of 92% might go to med/surg or get discharged. Subjective ROS Limited/Unobtainable: No Constitutional: Reports: no symptoms HEENT: Repors: no symptoms Allergies: Coded Allergies: No Known Allergies (Verified , 05/05/16) Objective Last 24 Hour Vital Signs Date Time Temp Pulse Resp B/P (MAP) Pulse Ox O2 Delivery O2 Flow Rate FiO2 06/26/17 12:00 97.3 78 18 143/88 95 Room Air 97.3 06/26/17 09:56 81 140/77 06/26/17 08:00 97.7 81 18 140/77 95 Room Air 97.7 06/26/17 08:00 82 06/26/17 04:00 87 06/26/17 04:00 97.7 80 20 144/92 95 Room Air 97.7 06/26/17 00:00 98.5 79 20 124/74 96 Room Air 98.5 06/26/17 00:00 93 06/25/17 20:00 86 06/25/17 20:00 97.9 68 20 132/96 97 Room Air 97.9 06/25/17 16:00 97 Intake and Output 06/25/17 06/26/17 19:00 07:00 Intake Total 708 ml Balance 708 ml Intake Oral 708 ml # Voids 2 6 Objective General Appearance: WD/WN Lines, tubes and drains: peripheral HEENT: normocephalic, atraumatic Neck: non-tender, normal alignment Respiratory/Chest: chest wall non-tender, lungs clear Cardiovascular/Chest: normal peripheral pulses, normal rate Abdomen: normal bowel sounds, non tender Genitourinary/Rectal: normal genital exam, normal rectal exam Extremities: normal range of motion, non-tender Skin Exam: normal pigmentation 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 grossly normal General Appearance: WD/WN HEENT: normocephalic Microbiology Date/Time Source Procedure Growth Status 06/24/17 10:15 Blood Blood Culture - Preliminary NO GROWTH AFTER 24 HOURS Resulted 06/24/17 10:00 Blood Blood Culture - Preliminary NO GROWTH AFTER 24 HOURS Resulted 06/24/17 10:15 Nasal Nares Influenza Types A,B Antigen (BRENDA) - Final Complete Laboratory Tests 06/26/17 06:52: White Blood Count 12.1H, Red Blood Count 3.90L, Hemoglobin 12.3, Hematocrit 36.6L, Mean Corpuscular Volume 94, Mean Corpuscular Hemoglobin 31.6H, Mean Corpuscular Hemoglobin Concent 33.7, Red Cell Distribution Width 12.1, Platelet Count 211, Mean Platelet Volume 6.8, Neutrophils (%) (Auto) 62.4, Lymphocytes (% ) (Auto) 31.4, Monocytes (%) (Auto) 5.4, Eosinophils (%) (Auto) 0.4, Basophils ( %) (Auto) 0.4, Sodium Level 134L, Potassium Level 3.6, Chloride Level 101, Carbon Dioxide Level 25, Anion Gap 8, Blood Urea Nitrogen 25H, Creatinine 1.3, Estimat Glomerular Filtration Rate 49.8, Glucose Level 106, Calcium Level 8.7, Troponin I 0.018, Triglycerides Level 125, Cholesterol Level 154, LDL Cholesterol 92, HDL Cholesterol 54, Cholesterol/HDL Ratio 2.9L Current Medications Medications (Trade) Dose Ordered Sig/Marline Route PRN Reason Start Time Stop Time Status Last Admin Dose Admin Acetaminophen (Tylenol) 650 mg Q4H PRN ORAL Mild Pain/Temp > 100.5 06/24/17 15:30 07/24/17 15:29 06/25/17 21:01 Aspirin (Ecotrin) 81 mg DAILY ORAL 06/25/17 09:00 07/25/17 08:59 06/26/17 09:55 Atorvastatin Calcium (Lipitor) 20 mg BEDTIME ORAL 06/24/17 22:30 07/24/17 22:29 06/25/17 20:59 Enoxaparin Sodium (Lovenox) 40 mg DAILY SUBQ 06/25/17 09:00 07/25/17 08:59 06/26/17 09:59 Folic Acid (Folate) 1 mg DAILY ORAL 06/25/17 09:00 07/25/17 08:59 06/26/17 09:56 Furosemide (Lasix) 40 mg DAILY IV 06/25/17 09:00 07/25/17 08:59 06/26/17 10:00 Ondansetron HCl (Zofran) 4 mg Q6H PRN IVP Nausea & Vomiting 06/24/17 15:30 07/24/17 15:29 Pantoprazole (Protonix) 40 mg DAILY IVP 06/25/17 09:00 07/25/17 08:59 06/26/17 09:56 Promethazine HCl/ Codeine (Phenergan with Codeine) 5 ml Q4H PRN ORAL For Cough 06/25/17 08:30 07/25/17 08:29 Spironolactone (Aldactone) 25 mg DAILY ORAL 06/25/17 09:00 07/25/17 08:59 06/26/17 09:56 Theophylline (Domenic-Dur) 100 mg EVERY 12 HOURS ORAL 06/25/17 09:00 07/25/17 08:59 06/26/17 09:55 Verapamil HCl (Calan SR) 120 mg DAILY ORAL 06/24/17 22:00 07/24/17 21:59 06/26/17 09:56 CATHLEEN PENA Jun 26, 2017 13:09
[2017-06-26 16:00] VITALS: BP 130/85
[2017-06-26 20:00] VITALS: BP 145/78
[2017-06-26] MEDS: Atorvastatin 20mg tab ORAL SCH (21:04)
[2017-06-27] VITALS: BP 134/84
[2017-06-27 04:00] VITALS: BP 151/97
[2017-06-27 07:26] LABS: BASOPHILS % (AUTO) 0.6 % (0.0-2.0); EOSINOPHILS % (AUTO) 1.3 % (0.0-3.0); HEMATOCRIT 39.6 % (37.0-47.0); HEMOGLOBIN 13.2 G/DL (12.0-16.0); LYMPHOCYTES % (AUTO) 31.7 % (20.0-45.0); MEAN CORPUSCULAR VOLUME 95 FL (80-99); MONOCYTES % (AUTO) 4.8 % (1.0-10.0); NEUTROPHILS % (AUTO) 61.6 % (45.0-75.0); PLATELET COUNT 220 K/UL (150-450); RED BLOOD COUNT 4.17 M/UL (4.20-5.40); RED CELL DISTRIBUTION WIDTH 12.4 % (11.6-14.8); WHITE BLOOD COUNT 10.7 K/UL (4.8-10.8)
[2017-06-27 07:34] LABS: ANION GAP 5 mmol/L (5-15); BLOOD UREA NITROGEN 26 mg/dL (7-18); CALCIUM 9.1 MG/DL (8.5-10.1); CARBON DIOXIDE 28 MMOL/L (21-32); CHLORIDE 99 MMOL/L (98-107); CHOLESTEROL 154 MG/DL (< 200); CREATININE 1.5 MG/DL (0.55-1.30); HDL CHOLESTEROL 53 MG/DL (40-60); POTASSIUM 3.7 MMOL/L (3.5-5.1); SODIUM 132 MMOL/L (136-145); TRIGLYCERIDES 158 MG/DL (30-150)
[2017-06-27 08:00] VITALS: BP 131/77
[2017-06-27] MEDS: Theophylline ER 100mg ORAL SCH (08:11)
[2017-06-27] MEDS: Spironolactone 25mg tab ORAL SCH (08:11)
[2017-06-27] MEDS: Aspirin EC 81mg tab ORAL SCH (08:11)
[2017-06-27] MEDS: Pantoprazole Inj IVP SCH (08:11)
[2017-06-27] MEDS: Enoxaparin 40mg Inj SUBQ SCH (08:16)
[2017-06-27] MEDS ORDERED: LIPITOR20 MG ORAL (11:39)
[2017-06-27] MEDS ORDERED: ASPIRIN EC81 MG ORAL (11:39)
[2017-06-27] MEDS ORDERED: CALAN SR120 MG ORAL (11:39)
[2017-06-27] MEDS ORDERED: ALDACTONE25 MG ORAL (11:39)
[2017-06-27] MEDS ORDERED: FUROSEMIDE40 MG ORAL (11:47)
[2017-06-27] MEDS ORDERED: LASIX40 MG ORAL (11:47)
[2017-06-27 12:00] VITALS: BP 136/76
--- NOTE | 2017-06-27 12:07 | General Progress Note ---
Assessment/Plan Status: stable Assessment/Plan 1. Congestive heart failure exacerbation. 2. Hypertension. 3. Hyperlipidemia. 4. Gastrointestinal and deep venous thrombosis prophylaxis. 5. Cerebrovascular accident, history of, details unknown. Plan: cardiology ( Dr Barrera ) Pulmonary ( Dr Hameed) notes are reviewed continue optimization of medications ok to f/u as o/p Subjective ROS Limited/Unobtainable: No Allergies: Coded Allergies: No Known Allergies (Verified , 05/05/16) Objective Last 24 Hour Vital Signs Date Time Temp Pulse Resp B/P (MAP) Pulse Ox O2 Delivery O2 Flow Rate FiO2 06/27/17 08:11 85 131/77 06/27/17 08:00 91 06/27/17 08:00 97.2 85 19 131/77 97 Room Air 97.2 06/27/17 04:00 98.4 81 20 151/97 93 Room Air 98.4 06/27/17 03:39 77 06/27/17 00:00 75 06/27/17 00:00 97.7 82 20 134/84 93 Room Air 97.7 06/26/17 20:00 97.0 89 20 145/78 99 Room Air 97.0 06/26/17 20:00 77 06/26/17 16:00 83 06/26/17 16:00 97.5 73 18 130/85 96 Room Air 97.5 Intake and Output 06/26/17 06/27/17 19:00 07:00 Intake Total 940 ml Balance 940 ml Intake Oral 940 ml # Voids 9 6 Laboratory Tests 06/27/17 05:40: White Blood Count 10.7, Red Blood Count 4.17L, Hemoglobin 13.2, Hematocrit 39.6 , Mean Corpuscular Volume 95, Mean Corpuscular Hemoglobin 31.5H, Mean Corpuscular Hemoglobin Concent 33.3, Red Cell Distribution Width 12.4, Platelet Count 220, Mean Platelet Volume 6.9, Neutrophils (%) (Auto) 61.6, Lymphocytes (% ) (Auto) 31.7, Monocytes (%) (Auto) 4.8, Eosinophils (%) (Auto) 1.3, Basophils ( %) (Auto) 0.6, Sodium Level 132L, Potassium Level 3.7, Chloride Level 99, Carbon Dioxide Level 28, Anion Gap 5, Blood Urea Nitrogen 26H, Creatinine 1.5H, Estimat Glomerular Filtration Rate 42.3, Glucose Level 112H, Calcium Level 9.1, Troponin I 0.010, Triglycerides Level 158H, Cholesterol Level 154, LDL Cholesterol 86, HDL Cholesterol 53, Cholesterol/HDL Ratio 2.9L Height (Feet): 5 Height (Inches): 7.00 Weight (Pounds): 160 General Appearance: WD/WN EENT: PERRL/EOMI Neck: supple Cardiovascular: normal rate Respiratory/Chest: lungs clear Abdomen: soft Extremities: non-tender 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
--- NOTE | 2017-06-27 12:19 | Pulmonology Progress Note ---
Assessment/Plan Problems: (1) COPD exacerbation (2) Acute bronchitis (3) CHF (congestive heart failure) (4) History of CVA (cerebrovascular accident) (5) CAD (coronary artery disease) Assessment/Plan improving on Lasix on theophyline getting better titrate fio2 to sat of 92% dc planning in progress Subjective ROS Limited/Unobtainable: No Constitutional: Reports: no symptoms HEENT: Repors: no symptoms Respiratory: Reports: no symptoms Cardiovascular: Reports: no symptoms Allergies: Coded Allergies: No Known Allergies (Verified , 05/05/16) Objective Last 24 Hour Vital Signs Date Time Temp Pulse Resp B/P (MAP) Pulse Ox O2 Delivery O2 Flow Rate FiO2 06/27/17 08:11 85 131/77 06/27/17 08:00 91 06/27/17 08:00 97.2 85 19 131/77 97 Room Air 97.2 06/27/17 04:00 98.4 81 20 151/97 93 Room Air 98.4 06/27/17 03:39 77 06/27/17 00:00 75 06/27/17 00:00 97.7 82 20 134/84 93 Room Air 97.7 06/26/17 20:00 97.0 89 20 145/78 99 Room Air 97.0 06/26/17 20:00 77 06/26/17 16:00 83 06/26/17 16:00 97.5 73 18 130/85 96 Room Air 97.5 Intake and Output 06/26/17 06/27/17 19:00 07:00 Intake Total 940 ml Balance 940 ml Intake Oral 940 ml # Voids 9 6 Objective General Appearance: WD/WN Lines, tubes and drains: peripheral HEENT: normocephalic, atraumatic Neck: non-tender, normal alignment Respiratory/Chest: chest wall non-tender, lungs clear Cardiovascular/Chest: normal peripheral pulses, normal rate Abdomen: normal bowel sounds, non tender Genitourinary/Rectal: normal genital exam, normal rectal exam Extremities: normal range of motion, non-tender Skin Exam: normal pigmentation 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 normal Laboratory Tests 06/27/17 05:40: White Blood Count 10.7, Red Blood Count 4.17L, Hemoglobin 13.2, Hematocrit 39.6 , Mean Corpuscular Volume 95, Mean Corpuscular Hemoglobin 31.5H, Mean Corpuscular Hemoglobin Concent 33.3, Red Cell Distribution Width 12.4, Platelet Count 220, Mean Platelet Volume 6.9, Neutrophils (%) (Auto) 61.6, Lymphocytes (% ) (Auto) 31.7, Monocytes (%) (Auto) 4.8, Eosinophils (%) (Auto) 1.3, Basophils ( %) (Auto) 0.6, Sodium Level 132L, Potassium Level 3.7, Chloride Level 99, Carbon Dioxide Level 28, Anion Gap 5, Blood Urea Nitrogen 26H, Creatinine 1.5H, Estimat Glomerular Filtration Rate 42.3, Glucose Level 112H, Calcium Level 9.1, Troponin I 0.010, Triglycerides Level 158H, Cholesterol Level 154, LDL Cholesterol 86, HDL Cholesterol 53, Cholesterol/HDL Ratio 2.9L Current Medications Medications (Trade) Dose Ordered Sig/Marline Route PRN Reason Start Time Stop Time Status Last Admin Dose Admin Acetaminophen (Tylenol) 650 mg Q4H PRN ORAL Mild Pain/Temp > 100.5 06/24/17 15:30 07/24/17 15:29 06/25/17 21:01 Aspirin (Ecotrin) 81 mg DAILY ORAL 06/25/17 09:00 07/25/17 08:59 06/27/17 08:11 Atorvastatin Calcium (Lipitor) 20 mg BEDTIME ORAL 06/24/17 22:30 07/24/17 22:29 06/26/17 21:04 Enoxaparin Sodium (Lovenox) 40 mg DAILY SUBQ 06/25/17 09:00 07/25/17 08:59 06/27/17 08:16 Folic Acid (Folate) 1 mg DAILY ORAL 06/25/17 09:00 07/25/17 08:59 06/27/17 08:11 Furosemide (Lasix) 40 mg DAILY IV 06/25/17 09:00 07/25/17 08:59 06/27/17 08:11 Ondansetron HCl (Zofran) 4 mg Q6H PRN IVP Nausea & Vomiting 06/24/17 15:30 07/24/17 15:29 Pantoprazole (Protonix) 40 mg DAILY IVP 06/25/17 09:00 07/25/17 08:59 06/27/17 08:11 Promethazine HCl/ Codeine (Phenergan with Codeine) 5 ml Q4H PRN ORAL For Cough 06/25/17 08:30 07/25/17 08:29 Spironolactone (Aldactone) 25 mg DAILY ORAL 06/25/17 09:00 07/25/17 08:59 06/27/17 08:11 Theophylline (Domenic-Dur) 100 mg EVERY 12 HOURS ORAL 06/25/17 09:00 07/25/17 08:59 06/27/17 08:11 Verapamil HCl (Calan SR) 120 mg DAILY ORAL 06/24/17 22:00 07/24/17 21:59 06/27/17 08:11 CATHLEEN PENA Jun 27, 2017 12:19
--- NOTE | 2017-06-30 08:01 | Discharge Summary ---
Discharge Summary Hospital Course Date of Admission Jun 24, 2017 at 13:00 Date of Discharge Jun 27, 2017 at 12:50 Admitting Diagnosis CHF EXACERBATION HPI Kraig Quijano is a 67 year old female who was admitted on Jun 24, 2017 at 13: 00 for Congestive Heart Failure Exacerbation Hospital Course dc summary #[id number] Discharge Medications New Medications: Aspirin Ec* (Aspirin Ec*) 81 Mg Tablet.dr 81 MG ORAL DAILY for 30 Days, TAB Atorvastatin Calcium* (Lipitor*) 20 Mg Tablet 20 MG ORAL BEDTIME for 30 Days, TAB Spironolactone (Aldactone) 25 Mg Tablet 25 MG ORAL DAILY for 30 Days, TAB Verapamil HCl (Verapamil ER) 120 Mg Cap24h.pel 120 MG ORAL DAILY for 30 Days, #30 CAP Continued Medications: Clobetasol Propionate (Clobetasol Propionate) 0.5 Gm Powder 0.5 GM MC, GM Furosemide* (Lasix*) 40 Mg Tablet 40 MG ORAL DAILY, TAB Discontinued Medications: Folic Acid* (Folic Acid*) 1 Mg Tablet 1 MG ORAL DAILY, TAB Furosemide* (Lasix*) 20 Mg Tablet 20 MG ORAL DAILY, TAB Potassium Chloride (Potassium Chloride) 10 Meq Tab.er.prt 10 MEQ PO, TAB Promethazine HCl (Promethegan) 25 Mg Supp.rect 25 MG RECTAL Q6H PRN for Nausea & Vomiting, SUPP Spironolact/Hydrochlorothiazid (Spironolactone-Hctz 25-25 Tab) 1 Each Tablet 1 TAB ORAL DAILY, TAB Discharge Condition Upon Discharge: stable Discharge Disposition Patient was discharged to Home with Home Health(06) Discharge Diagnoses: Discharge Instructions Discharge Instructions Special Instructions I have been assigned to complete a D/C Summary on this account. I was not involved in the patient management Jolie Cordova NP (Vanchtein) Jun 30, 2017 08:01
--- NOTE | 2017-06-30 22:00 | Discharge Summary 2 SIG ---
DATE OF ADMISSION: 06/24/2017 DATE OF DISCHARGE: 06/27/2017 REASON FOR ADMISSION: 67-year-old female with past medical history significant for hypertension, COPD, CHF, CVA, former crack cocaine user, presented to emergency department with difficulty breathing which started the night before presentation to ED. Shortness of breath was worse in supine position. The patient also reported leg swelling. No chest pain. Blood pressure upon evaluation-181/112. The patient required placement on 100% nonrebreathing mask. No leukocytosis. Urinalysis negative. Pro BNP -1585. Troponin negative. EKG showed normal sinus rhythm, no acute ischemic changes. Chest x-ray revealed mild CHF. The patient admitted with CHF exacerbation, hypertension, COPD, hyperlipidemia, history of CVA. HOSPITAL COURSE: The patient admitted to telemetry floor. Cardiology and Pulmonology consults were requested. Serial troponin x4 was negative. EKG revealed normal sinus rhythm, no acute ischemic changes. The patient was ruled out for acute IL. Echocardiogram revealed ejection fraction of 50%. The patient was on IV diuresis. Volumes and cardiorenal parameters were closely monitored. Blood pressure was managed with verapamil along with diuretic. The patient was on aspirin and statin. Lipid panel with stable total cholesterol and LDL. Blood pressure stabilized. Supplemental oxygen and pulmonary toilet with bronchodilators provided as needed. Oxygen titrated to keep pulse oximetry above 92%. Prior to discharge, pulse oximetry 98% on room air. Trial of theophylline started upon admission. Initially received one dose of steroids in the emergency department. Influenza screen test was negative. Blood culture were negative. Antitussive provided as needed. DVT and GI prophylaxes provided. According to the patient, the patient had nonischemic stress test in 2013 at [facility]. The patient was stabilized. Shortness of breath resolved. Respiratory status stable. Blood pressure stable. Reinforce compliance with medications. Continue abstinence from street drugs. The patient to continue with diuretic, aspirin, statin, verapamil. The patient was stable for discharge. FINAL DIAGNOSES: 1. Acute CHF exacerbation. 2. COPD exacerbation. 3. Acute bronchitis. 4. Hypertension 5. Hyperlipidemia. 6. History of CVA. DISCHARGE MEDICATIONS: See medication reconciliation list. DISCHARGE INSTRUCTIONS: The patient discharged home with home health services. Follow up with primary care provider. Jesus Tao M.D. I have been assigned to dictate discharge summary on this account and I was not involved in the patient's management. Jolie Cordova (Vanchtein) NMarv DR: Mor JOB#: [id number] CC: YESSENIA
--- NOTE | 2017-07-01 11:14 | Cardiology Report ---
APPROVED REPORT EXAM: Two-dimensional and M-mode echocardiogram with Doppler and color Doppler. INDICATION SOB M-Mode DIMENSIONS IVSd1.1 (0.7-1.1cm)Left Atrium (MM)4.8 (1.6-4.0cm) LVDd5.0 (3.5-5.6cm)Aortic Root2.6 (2.0-3.7cm) PWd1.5 (0.7-1.1cm)Aortic Cusp Exc.1.7 (1.5-2.0cm) LVDs3.5 (2.5-4.0cm) PWs1.9 cm Technically difficult study due to poor acoustical windows. Left ventricular chamber size at upper limits of normal by 2-D. Global left ventricular hypokinesis to extent visualized. Left ventricular ejection fraction estimated to be 40-45 %. Study quality precludes accurate assessment of regional wall motion. Mild left ventricular hypertrophy by 2-D. Small posterior pericardial effusion. Moderate left atrial enlargement. Right cardiac chamber sizes are within normal limits. Focal aortic valve sclerosis with adequate cusp excursion. Thickened mitral valve leaflets with normal excursion. Mitral annulus and aortic root calcification. Pulmonic valve not well visualized. Normal tricuspid valve structure. IVC measured at 2.1 cm with slight physiologic collapse. A color flow and spectral Doppler study was performed and revealed: Trace aortic regurgitation. Mild mitral regurgitation. Mitral inflow velocities indicates possible pseudo normalization pattern implying moderately elevated left atrial pressure (Grade II). Trace tricuspid regurgitation. Tricuspid systolic velocities suggests peak right ventricular systolic pressure of 21 mmHg. Trace pulmonic regurgitation present.
--- NOTE | 2017-07-02 16:21 | Cardiology Report ---
APPROVED REPORT EKG Measurement Heart [id number] Sinus rhythm with premature atrial complexes with aberrant conduction Prolonged QT Abnormal ECG
== END 2017-06-27 12:50 | disposition home health service (06) | DRG 292 ==
LOC: EDBD 09:44 → EMR 10:13 → 2E 13:00 → EDBEDREQ 13:31
DX: I11.0 Hypertensive heart disease with heart failure (principal); J44.1 Chronic obstructive pulmonary disease with (acute) exacerbation; J44.0 Chronic obstructive pulmonary disease with (acute) lower respiratory infection; I50.33 Acute on chronic diastolic (congestive) heart failure; J20.9 Acute bronchitis, unspecified; I25.10 Atherosclerotic heart disease of native coronary artery without angina pectoris; E78.5 Hyperlipidemia, unspecified; Z86.73 Personal history of transient ischemic attack (TIA), and cerebral infarction without residual deficits
CPT/HCPCS: 36415; 71045; 80048; 80053; 80061; 81003; 83036; 83690; 83880; 84484; 85025; 85379; 86703; 86710; 86803; 87040; 87517; 93005; 93306; 94640; 94664; 99285; J7620

== ENCOUNTER 2017-09-21 08:55 | Emergency (ER) | payer MEDICARE, MEDICAID ==
[~2017-09-21] VITALS: Ht 165.1 cm; Wt 95.7 kg
[~2017-09-21 08:55] MED LIST changes: +ALDACTONE25 MG ORAL; +ASPIRIN EC81 MG ORAL; +CALAN SR120 MG ORAL; +FUROSEMIDE40 MG ORAL; +LASIX40 MG ORAL
--- NOTE | 2017-09-21 09:10 | Emergency Room Report ---
History of Present Illness General Chief Complaint: Eye Problems Source: Patient Present Illness HPI Patient is a 67-year-old female who presented after increased left-sided eye pain. The patient reported having increased eye irritation which began approximately 3 days ago. The patient was having gradual onset of symptoms. Patient had previous right eye problems and difficulty with vision. 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 The patient reports having some visual changes. She denies recent trauma. Allergies: Coded Allergies: No Known Allergies (Verified , 05/05/16) Patient History Past Medical History: see triage record Last Menstrual Period: NA Reviewed Nursing Documentation: PMH: Agreed; PSxH: Agreed Nursing Documentation-PMH Past Medical History: No History, Except For Hx Hypertension: Yes Hx Pacemaker: No Hx COPD: Yes Hx Diabetes: No Hx Cancer: No Hx Gastrointestinal Problems: No Hx Neurological Problems: No Hx Cerebrovascular Accident: Yes Hx Neurologic Surgery: No Review of Systems All Other Systems: negative except mentioned in HPI Physical Exam Vital Signs Date Time Temp Pulse Resp B/P (MAP) Pulse Ox O2 Delivery O2 Flow Rate FiO2 09/21/17 08:57 98.1 80 16 137/80 95 Room Air 98.1 General Appearance: well appearing, no apparent distress, alert, GCS 15 Head: normocephalic, atraumatic Eyes: bilateral eye PERRL, bilateral eye abnormal EOM - right eye lateral deviation, bilateral eye Scleral Injection ENT: hearing grossly normal, normal voice Neck: full range of motion, supple Respiratory: no respiratory distress, speaking full sentences Musculoskeletal: no calf tenderness Neurologic: normal gait Psychiatric: mood/affect normal Skin: no rash Medical Decision Making Diagnostic Impression: Primary Impression: Iritis of left eye ER Course Patient presented for eye pain. Differential diagnosis included but wasn't limited to glaucoma, iritis, corneal abrasion, bacterial conjunctivitis, viral conjunctivitis. The fluorescein exam showed no dye uptake. Intraocular pressure was noted to be 14 checked by David-Pen. The patient appears to have some iritis. The patient was advised ophthalmology follow-up. Patient is given prescription for Tobradex. The patient was advised follow-up with ophthalmology on Friday. The patient return for increased changes in her vision , vomiting or other concerns. Last Vital Signs Date Time Temp Pulse Resp B/P (MAP) Pulse Ox O2 Delivery O2 Flow Rate FiO2 09/21/17 08:57 98.1 80 16 137/80 95 Room Air 98.1 Status: improved Disposition: HOME, SELF-CARE Condition: Stable Scripts Tobramycin/Dexamethasone (TOBRADEX EYE DROPS) 5 Ml Drops.susp 5 ML OP TWICE A DAY for 3 Days, ML Prov: Kushal Landeros MD 09/21/17 Kushal Landeros MD Sep 21, 2017 09:10
[2017-09-21] MEDS ORDERED: Fluorescein Strips LEFT EYE ONE (09:15)
[2017-09-21] MEDS ORDERED: Tetracaine 0.5% Opth 4ml Soln LEFT EYE ONE (09:15)
[2017-09-21 09:24] VITALS: BP 139/79
[2017-09-21] MEDS ORDERED: TOBRADEX EYE DRO5 M1 OP (09:29)
== END 2017-09-21 10:15 | disposition home or self-care (01) ==
LOC: EMR 09:10
DX: H20.9 Unspecified iridocyclitis (principal); Z86.73 Personal history of transient ischemic attack (TIA), and cerebral infarction without residual deficits; I10 Essential (primary) hypertension; J44.9 Chronic obstructive pulmonary disease, unspecified
CPT/HCPCS: 99283

== ENCOUNTER 2017-11-14 17:37 | Inpatient (IN) | payer MEDICARE, MEDICAID ==
[~2017-11-14] VITALS: Ht 165.1 cm; Wt 100.2 kg
[~2017-11-14 17:37] MED LIST changes: +TOBRADEX EYE DRO5 M1 OP
[2017-11-14 18:07] VITALS: BP 141/84
--- NOTE | 2017-11-14 18:19 | Emergency Room Report ---
History of Present Illness General Chief Complaint: Dyspnea/Respdistress Source: Patient Present Illness HPI This patient states that for the past few days she has had shortness of breath on exertion. She does have a history of congestive heart failure. She states that she took more of her Lasix but states that that has not helped. She states she did have some leg swelling a few days ago but that has resolved. She has had a cough. She denies fever or chills. She denies nausea or vomiting. She states that she does have a history of tobacco use but quit smoking in April of this year. She is not on any type of pulmonary inhalers. She denies abdominal pain. She has no other complaints. Allergies: Coded Allergies: No Known Allergies (Verified , 05/05/16) Patient History Past Medical History: see triage record, HTN, CAD, CHF, COPD, CVA/TIA Social History: Denies: smoking, alcohol use, drug use Reviewed Nursing Documentation: PMH: Agreed; PSxH: Agreed Nursing Documentation-PMH Hx Hypertension: Yes Hx Pacemaker: No Hx COPD: Yes Hx Diabetes: No Hx Cancer: No Hx Gastrointestinal Problems: No Hx Neurological Problems: No Hx Cerebrovascular Accident: Yes Hx Neurologic Surgery: No Review of Systems All Other Systems: negative except mentioned in HPI Physical Exam Vital Signs Date Time Temp Pulse Resp B/P (MAP) Pulse Ox O2 Delivery O2 Flow Rate FiO2 11/14/17 17:46 98.0 71 16 153/98 96 Room Air 98.1 Sp02 EP Interpretation: reviewed, normal General Appearance: no apparent distress, alert, GCS 15, non-toxic Head: normocephalic, atraumatic Eyes: bilateral eye normal inspection, bilateral eye PERRL ENT: hearing grossly normal, normal pharynx, no angioedema, normal voice Neck: full range of motion, supple/symm/no masses Respiratory: chest non-tender, lungs clear, normal breath sounds, no respiratory distress, no retraction, no accessory muscle use, speaking full sentences Cardiovascular #1: regular rate, rhythm, no edema Gastrointestinal: normal bowel sounds, non tender, soft, non-distended, no guarding, no rebound Rectal: deferred Musculoskeletal: back normal, gait/station normal, normal range of motion, non- tender, calf tenderness Neurologic: alert, oriented x3, responsive, motor strength/tone normal, sensory intact, speech normal Psychiatric: judgement/insight normal, memory normal, mood/affect normal, no suicidal/homicidal ideation Skin: normal color, no rash, warm/dry, well hydrated Medical Decision Making Diagnostic Impression: Primary Impression: CHF exacerbation ER Course This patient presents a CHF exacerbation. The patient's chest x-ray does not show fluid, however, the patient has shortness of breath on exertion and an elevated BNP. She is given Lasix IV. The patient is very uncomfortable going home stating she would prefer to get further diuresis in the hospital. She is admitted to telemetry observation for CHF exacerbation. Laboratory Tests Test 11/14/17 18:00 11/14/17 18:18 White Blood Count 10.2 K/UL (4.8-10.8) Red Blood Count 3.79 M/UL (4.20-5.40) L Hemoglobin 11.9 G/DL (12.0-16.0) L Hematocrit 35.2 % (37.0-47.0) L Mean Corpuscular Volume 93 FL (80-99) Mean Corpuscular Hemoglobin 31.5 PG (27.0-31.0) H Mean Corpuscular Hemoglobin Concent 33.8 G/DL (32.0-36.0) Red Cell Distribution Width 11.9 % (11.6-14.8) Platelet Count 232 K/UL (150-450) Mean Platelet Volume 6.6 FL (6.5-10.1) Neutrophils (%) (Auto) 64.5 % (45.0-75.0) Lymphocytes (%) (Auto) 27.4 % (20.0-45.0) Monocytes (%) (Auto) 4.9 % (1.0-10.0) Eosinophils (%) (Auto) 2.1 % (0.0-3.0) Basophils (%) (Auto) 1.1 % (0.0-2.0) Prothrombin Time 10.0 SEC (9.30-11.50) Prothrombin Time INR 0.9 (0.9-1.1) PTT 26 SEC (23-33) Sodium Level 137 MMOL/L (136-145) Potassium Level 4.5 MMOL/L (3.5-5.1) Chloride Level 103 MMOL/L (98-107) Carbon Dioxide Level 24 MMOL/L (21-32) Anion Gap 10 mmol/L (5-15) Blood Urea Nitrogen 21 mg/dL (7-18) H Creatinine 1.2 MG/DL (0.55-1.30) Estimate Glomerular Filtration Rate 54.7 mL/min (>60) Glucose Level 121 MG/DL (74-106) H Calcium Level 9.3 MG/DL (8.5-10.1) Total Bilirubin 0.5 MG/DL (0.2-1.0) Aspartate Amino Transferase (AST) 32 U/L (15-37) Alanine Aminotransferase (ALT) 27 U/L (12-78) Alkaline Phosphatase 112 U/L (46-116) Total Creatine Kinase 190 U/L (26-308) Creatine Kinase MB 1.3 NG/ML (0.0-3.6) Creatine Kinase MB Relative Index 0.6 Troponin I 0.013 ng/mL (0.000-0.056) Pro-B-Type Natriuretic Peptide 1514 pg/mL (0-125) H Total Protein 8.8 G/DL (6.4-8.2) H Albumin 3.3 G/DL (3.4-5.0) L Globulin 5.5 g/dL Albumin/Globulin Ratio 0.6 (1.0-2.7) L Urine Color Pale yellow Urine Appearance Clear Urine pH 5 (4.5-8.0) Urine Specific Organ 1.020 (1.005-1.035) Urine Protein Negative (NEGATIVE) Urine Glucose (UA) Negative (NEGATIVE) Urine Ketones Negative (NEGATIVE) Urine Occult Blood Negative (NEGATIVE) Urine Nitrite Negative (NEGATIVE) Urine Bilirubin Negative (NEGATIVE) Urine Urobilinogen Normal MG/DL (0.0-1.0) Urine Leukocyte Esterase Negative (NEGATIVE) Urine Opiates Screen Negative (NEGATIVE) Urine Barbiturates Screen Negative (NEGATIVE) Phencyclidine (PCP) Screen Negative (NEGATIVE) Urine Amphetamines Screen Negative (NEGATIVE) Urine Benzodiazepines Screen Negative (NEGATIVE) Urine Cocaine Screen Negative (NEGATIVE) Urine Marijuana (THC) Screen Negative (NEGATIVE) EKG Diagnostic Results Rate: normal Rhythm: NSR ST Segments: no acute changes Rhythm Strip Diag. Results EP Interpretation: yes Rate: 70's Rhythm: NSR, no PVC's, no ectopy Chest X-Ray Diagnostic Results Chest X-Ray Diagnostic Results : Chest X-Ray Ordered: Yes # of Views/Limited/Complete: 1 View Indication: Shortness of Breath Interpretation: no consolidation, no effusion, no pneumothorax, no acute cardiopulmonary disease, other - cardiomegaly Impression: No acute disease Electronically Signed by: Nirav Last Vital Signs Date Time Temp Pulse Resp B/P (MAP) Pulse Ox O2 Delivery O2 Flow Rate FiO2 11/14/17 18:07 84 20 Room Air 11/14/17 18:07 97.7 141/84 97 97.7 Disposition: ADMITTED INPATIENT Condition: Stable Lila Abebe DO Nov 14, 2017 18:19
[2017-11-14 18:36] LABS: APPEARANCE,URINE CLEAR; BILIRUBIN, URINE NEGATIVE (NEGATIVE); COLOR,URINE PALE YELLOW; GLUCOSE, URINE (UA) NEGATIVE (NEGATIVE); KETONES,URINE NEGATIVE (NEGATIVE); LEUKOCYTE ESTERASE ,URINE NEGATIVE (NEGATIVE); NITRITE,URINE NEGATIVE (NEGATIVE); PH,URINE 5 (4.5-8.0); PROTEIN,URINE NEGATIVE (NEGATIVE); UROBILINOGEN,URINE NORMAL MG/DL (0.0-1.0)
[2017-11-14 18:38] LABS: BASOPHILS % (AUTO) 1.1 % (0.0-2.0); EOSINOPHILS % (AUTO) 2.1 % (0.0-3.0); HEMATOCRIT 35.2 % (37.0-47.0); HEMOGLOBIN 11.9 G/DL (12.0-16.0); INR 0.9 (0.9-1.1); LYMPHOCYTES % (AUTO) 27.4 % (20.0-45.0); MEAN CORPUSCULAR VOLUME 93 FL (80-99); MONOCYTES % (AUTO) 4.9 % (1.0-10.0); NEUTROPHILS % (AUTO) 64.5 % (45.0-75.0); PLATELET COUNT 232 K/UL (150-450); RED BLOOD COUNT 3.79 M/UL (4.20-5.40); RED CELL DISTRIBUTION WIDTH 11.9 % (11.6-14.8); WHITE BLOOD COUNT 10.2 K/UL (4.8-10.8)
[2017-11-14 18:40] LABS: ANION GAP 10 mmol/L (5-15); BLOOD UREA NITROGEN 21 mg/dL (7-18); CALCIUM 9.3 MG/DL (8.5-10.1); CARBON DIOXIDE 24 MMOL/L (21-32); CHLORIDE 103 MMOL/L (98-107); CREATININE 1.2 MG/DL (0.55-1.30); POTASSIUM 4.5 MMOL/L (3.5-5.1); SODIUM 137 MMOL/L (136-145)
--- NOTE | 2017-11-14 18:49 | Diagnostic Imaging Report ---
History: SOB Exam: XR CXR 1 VIEW Comparison: 06/24/2017 FINDINGS: The lungs are clear. The pulmonary vascularity appears within limits. No evidence of pleural effusion. The cardiac silhouette is again enlarged. The visualized osseous structures appear within limits. IMPRESSION: No evidence of acute disease. The cardiac silhouette is again enlarged.
[2017-11-14 18:54] LABS: ALANINE AMINOTRANSFERASE 27 U/L (12-78); ALBUMIN 3.3 G/DL (3.4-5.0); ALBUMIN/GLOBULIN RATIO 0.6 (1.0-2.7); ALKALINE PHOSPHATASE 112 U/L (46-116); ASPARTATE AMINO TRANSFERASE 32 U/L (15-37); BILIRUBIN,TOTAL 0.5 MG/DL (0.2-1.0); CKMB 1.3 NG/ML (0.0-3.6); CREATINE KINASE 190 U/L (26-308)
[2017-11-14 19:13] VITALS: BP 155/84
[2017-11-14] MEDS ORDERED: VITAMIN D400 INTLU ORAL (20:10)
[2017-11-14] MEDS ORDERED: ZYRTEC10 MG ORAL (20:10)
[2017-11-14] MEDS ORDERED: POTASSIUM CHLO10 MEQ ORAL (20:10)
[2017-11-14] MEDS ORDERED: CARVEDILOL6.25 MG ORAL (20:10)
[2017-11-14] MEDS ORDERED: NORCO 5-325 TA1 EACH ORAL (20:10)
[2017-11-14] MEDS ORDERED: POTASSIUM CHLO20 ME1 ORAL (20:10)
[2017-11-14] MEDS ORDERED: FUROSEMIDE20 M1 ORAL (20:10)
[2017-11-14] MEDS ORDERED: ATORVASTATIN CA20 MG ORAL (20:10)
[2017-11-14] MEDS ORDERED: CLOPIDOGREL75 MG ORAL (20:10)
[2017-11-14] MEDS ORDERED: DIOVAN80 MG ORAL (20:10)
[2017-11-14 21:50] VITALS: BP 132/74
[2017-11-14] MEDS ORDERED: Albuterol/Ipratropium 3ml neb HHN PRN (23:30)
[2017-11-14] MEDS ORDERED: Miralax 17gm pkt ORAL PRN (23:30)
[2017-11-15] VITALS: BP 134/73
[2017-11-15] MEDS: Albuterol/Ipratropium 3ml neb HHN SCH ×4 (01:13→19:39)
[2017-11-15] MEDS: Norco 5mg/325mg tab ORAL PRN (01:45)
[2017-11-15 04:00] VITALS: BP 138/74
[2017-11-15 07:08] LABS: BASOPHILS % (AUTO) 0.7 % (0.0-2.0); EOSINOPHILS % (AUTO) 1.8 % (0.0-3.0); HEMATOCRIT 33.9 % (37.0-47.0); HEMOGLOBIN 11.9 G/DL (12.0-16.0); LYMPHOCYTES % (AUTO) 28.7 % (20.0-45.0); MEAN CORPUSCULAR VOLUME 93 FL (80-99); MONOCYTES % (AUTO) 6.6 % (1.0-10.0); NEUTROPHILS % (AUTO) 62.3 % (45.0-75.0); PLATELET COUNT 212 K/UL (150-450); RED BLOOD COUNT 3.63 M/UL (4.20-5.40); RED CELL DISTRIBUTION WIDTH 11.8 % (11.6-14.8); WHITE BLOOD COUNT 8.8 K/UL (4.8-10.8)
[2017-11-15 07:24] LABS: ANION GAP 10 mmol/L (5-15); BLOOD UREA NITROGEN 21 mg/dL (7-18); CALCIUM 9.3 MG/DL (8.5-10.1); CARBON DIOXIDE 28 MMOL/L (21-32); CHLORIDE 104 MMOL/L (98-107); CHOLESTEROL 129 MG/DL (< 200); CREATININE 1.3 MG/DL (0.55-1.30); HDL CHOLESTEROL 46 MG/DL (40-60); POTASSIUM 3.6 MMOL/L (3.5-5.1); SODIUM 142 MMOL/L (136-145); TRIGLYCERIDES 114 MG/DL (30-150)
[2017-11-15 08:34] VITALS: BP 144/85
--- NOTE | 2017-11-15 09:10 | Consultation ---
Consult Note Assessment/Plan DICT # [id number] Bassem Sorto MD Nov 15, 2017 09:10
[2017-11-15] MEDS: Aspirin EC 81mg tab ORAL SCH (09:22)
[2017-11-15] MEDS: Spironolactone 25mg tab ORAL SCH (09:23)
[2017-11-15] MEDS: Carvedilol 6.25mg Tab ORAL SCH ×2 (09:23→21:28)
[2017-11-15] MEDS: Docusate 100mg cap ORAL SCH ×2 (09:23→21:28)
[2017-11-15] MEDS: Heparin 5000 units/ml inj SUBQ SCH ×2 (09:25→21:27)
[2017-11-15 12:00] VITALS: BP 135/83
[2017-11-15 16:00] VITALS: BP 138/81
--- NOTE | 2017-11-15 16:15 | Consultation ---
DATE OF CONSULTATION: 11/15/2017 PULMONARY CONSULTATION CONSULTING PHYSICIAN: Bassem Sorto M.D. REFERRING PHYSICIAN: Tye Blancas M.D. REASON FOR CONSULTATION: Shortness of breath and dyspnea. HISTORY OF PRESENT ILLNESS: The patient is a 67-year-old female, former smoker with a history of COPD, CHF, hypertension, prior CVA, and TIA presenting with two to three days of shortness of breath, lower extremity edema, PND, orthopnea, and a mild nonproductive cough. She states she was taking her Lasix and denies any dietary indiscretions, but does state that she has been having more juice lately. She states she was previously on inhalers, but no longer as her doctor did not refill them. She denies any fevers, chills, chest pain, headaches, dizziness, nausea, vomiting, hemoptysis, weight loss, diarrhea, constipation, or other complaints. PAST MEDICAL HISTORY: 1. CAD. 2. CHF. 3. COPD. 4. CVA/TIA. 5. Hypertension. ALLERGIES: No known drug allergies. MEDICATIONS: Prior to admission, medications reviewed. Current medications reviewed. SOCIAL HISTORY: Former smoker, none current. No drug or alcohol use. FAMILY HISTORY: Noncontributory. REVIEW OF SYSTEMS: Negative other than history of present illness. PHYSICAL EXAMINATION: GENERAL: She is a obese female in no acute distress. Awake, alert, and oriented x3. VITAL SIGNS: Temperature 97.9 degrees, pulse 77, blood pressure 132/74, respiratory rate 18, and saturating 100% on room air. HEENT: Normocephalic and atraumatic. Oropharynx is clear with moist mucous membranes. NECK: Supple without lymphadenopathy. JVD is 10 cm. CHEST: Clear decreased at the bases, distant. HEART: Regular rate and rhythm. ABDOMEN: Soft, nontender, and nondistended. EXTREMITIES: No cyanosis, clubbing or edema. ANCILLARY DATA: White count 8.8, hemoglobin 11.9, and platelet count 212. INR is 0.9. Sodium 142, potassium 3.6, chloride 104, bicarbonate 28, BUN 21, creatinine 1.3, and glucose 113. Hemoglobin A1c 5.9. Calcium 9.3. Magnesium 1.8. BNP 1514 on admission and 1133 now. Troponin negative x2. TSH 9.86. HDL 46, LDL 74 and cholesterol 129. Urinalysis is negative. Urine toxicology is negative. Chest x-ray done in the emergency department reviewed by myself shows no acute findings. ASSESSMENT: The patient is a 67-year-old female former smoker with a history of COPD, CHF, hypertension, hyperlipidemia, obesity, and prior CVA/TIA presenting with shortness of breath in the setting of decompensated heart failure. She does have a mild nonproductive cough, but this does not appear to be an exacerbation of her underlying obstructive lung disease. PROBLEM LIST: 1. Dyspnea and shortness of breath likely secondary to acute decompensated heart failure. 2. CHF, admitted with acute decompensated heart failure. 3. COPD without evidence of exacerbation. 4. Cough. 5. Hypertension. 6. Hyperlipidemia. 7. Prior CVA/TIA. 8. Elevated TSH. TREATMENT PLAN: 1. Optimize pulmonary hygiene/mobilize as tolerated. 2. P.r.n. O2 to keep saturations greater than 90%. 3. Continue endgn-sff-lxrwp and p.r.n. bronchodilators. 4. Hold off on steroids and antibiotics for the time being. 5. Monitor volumes and renal function, continue diuresis as tolerated. 6. Follow up Cardiology recommendations and echocardiogram. 7. Follow up TFTs. 8. Aspiration precautions. 9. DVT prophylaxis, heparin subcutaneous. 10. 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 Dr. Blancas, thank you for allowing me to assist in the care of your patient. If I may be of any assistance in the future, please do not hesitate to ask. Bassem Sorto M.D. DR: JENN JOB#: [id number] CC:
[2017-11-15 20:00] VITALS: BP 128/79
--- NOTE | 2017-11-15 22:35 | History and Physical ---
History of Present Illness General Date patient seen: Nov 15, 2017 Time patient seen: 08:22 Reason for Hospitalization: Dyspnea/Respdistress Present Illness HPI 67 yo woman presenting with worsening MARSH, orthopena and paroxysmal nocturnal dyspnea over the past few days Denies chest pain, fevers or chills In ED, received 40mg IV furosemide PMHX: 1. CAD. 2. CHF. 3. COPD. 4. CVA/TIA. 5. Hypertension. FHX: Reviewed by me; not pertinent for this encounter SHx: Former smoker; no EtOH Allergies: Coded Allergies: No Known Allergies (Verified , 05/05/16) Medication History Scheduled Aspirin Ec* (Aspirin Ec*), 81 MG ORAL DAILY Atorvastatin Calcium* (Lipitor*), 20 MG ORAL BEDTIME Atorvastatin Calcium* (Atorvastatin Calcium*), 10 MG ORAL BEDTIME, (Reported) Carvedilol* (Carvedilol*), 6.25 MG ORAL EVERY 12 HOURS, (Reported) Cetirizine Hcl* (Zyrtec*), 10 MG ORAL DAILY, (Reported) Clopidogrel* (Clopidogrel*), 75 MG ORAL DAILY, (Reported) Furosemide* (Lasix*), 40 MG ORAL DAILY, (Reported) Furosemide* (Lasix*), 40 MG ORAL DAILY, (Reported) Furosemide* (Lasix*), 20 MG ORAL DAILY, (Reported) Potassium Chloride* (K-Dur*), 10 MEQ ORAL DAILY, (Reported) Potassium Chloride* (K-Dur*), 20 MEQ ORAL DAILY, (Reported) Spironolactone (Aldactone), 25 MG ORAL DAILY Tobramycin/Dexamethasone (Tobradex Eye Drops), 5 ML OP TWICE A DAY Valsartan (Diovan), 80 MG ORAL DAILY, (Reported) Verapamil HCl (Verapamil ER), 120 MG ORAL DAILY Vitamin D (Vitamin D3), 400 UNITS ORAL DAILY, (Reported) Scheduled PRN Hydrocodone Bit/Acetaminophen 5-325* ([place] 5-325*), 1 TAB ORAL BID PRN for For Pain, (Reported) Miscellaneous Medications Clobetasol Propionate (Clobetasol Propionate), 0.5 GM MC, (Reported) Patient History Healthcare decision maker N/A Resuscitation status Advanced Directive on File Review of Systems Constitutional: Reports: see HPI, weakness Eye: Reports: no symptoms ENT: Reports: no symptoms Respiratory: Reports: orthopnea, shortness of breath Cardiovascular: Reports: edema, PND Gastrointestinal: Reports: no symptoms Genitourinary: Reports: no symptoms Musculoskeletal: Reports: no symptoms Skin: Reports: no symptoms Psychiatric: Reports: no symptoms Neurological: Reports: no symptoms Endocrine: Reports: no symptoms Hematologic/Lymphatic: Reports: no symptoms All Other Systems: negative except mentioned in HPI Physical Exam General Appearance: mild distress, overweight Lines, tubes and drains: peripheral HEENT: normocephalic, atraumatic, EOMI, supple, carotid(s) normal Neck: non-tender, supple Respiratory/Chest: crackles/rales Cardiovascular/Chest: normal peripheral pulses, normal rate, regular rhythm Abdomen: normal bowel sounds, non tender Extremities: normal range of motion, non-tender, trace edema Skin Exam: normal pigmentation, warm/dry 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, no motor/sensory deficits Lymphatic: anterior cervical Musculoskeletal: normal muscle bulk Last 24 Hour Vital Signs Date Time Temp Pulse Resp B/P (MAP) Pulse Ox O2 Delivery O2 Flow Rate FiO2 11/15/17 21:28 109 157/86 11/15/17 19:40 74 18 100 Room Air 21 11/15/17 19:39 72 18 98 Room Air 21 11/15/17 16:00 78 11/15/17 16:00 97.0 65 20 138/81 (100) 98 97.0 11/15/17 13:19 87 18 100 Room Air 11/15/17 13:09 87 18 98 Room Air 11/15/17 12:00 77 11/15/17 12:00 97.0 74 20 135/83 (100) 94 97.0 11/15/17 10:28 89 18 100 Room Air 11/15/17 10:21 84 18 98 Room Air 11/15/17 09:23 144/85 11/15/17 09:23 76 144/85 11/15/17 09:00 Room Air 11/15/17 08:34 97.6 76 20 144/85 (104) 94 97.6 11/15/17 08:00 75 11/15/17 04:00 97.9 77 18 138/74 (95) 94 97.9 11/15/17 03:42 74 11/15/17 01:27 80 18 100 Room Air 11/15/17 01:16 81 16 97 Room Air 11/15/17 00:00 97.9 72 20 134/73 (93) 93 97.9 11/14/17 23:48 78 11/14/17 23:10 Room Air Intake and Output 11/14/17 11/15/17 19:00 07:00 Intake Total 100 ml Balance 100 ml Intake Oral 100 ml # Voids 2 Laboratory Tests Test 11/15/17 05:30 11/15/17 05:35 Free Thyroxine 0.83 NG/DL (0.76-1.46) Triiodothyonine (T3) Pending Free Triiodothyronine 3.2 pg/mL (2.3-4.2) Triiodothyronine (T3) Uptake Pending White Blood Count 8.8 K/UL (4.8-10.8) Red Blood Count 3.63 M/UL (4.20-5.40) L Hemoglobin 11.9 G/DL (12.0-16.0) L Hematocrit 33.9 % (37.0-47.0) L Mean Corpuscular Volume 93 FL (80-99) Mean Corpuscular Hemoglobin 32.8 PG (27.0-31.0) H Mean Corpuscular Hemoglobin Concent 35.2 G/DL (32.0-36.0) Red Cell Distribution Width 11.8 % (11.6-14.8) Platelet Count 212 K/UL (150-450) Mean Platelet Volume 7.0 FL (6.5-10.1) Neutrophils (%) (Auto) 62.3 % (45.0-75.0) Lymphocytes (%) (Auto) 28.7 % (20.0-45.0) Monocytes (%) (Auto) 6.6 % (1.0-10.0) Eosinophils (%) (Auto) 1.8 % (0.0-3.0) Basophils (%) (Auto) 0.7 % (0.0-2.0) Sodium Level 142 MMOL/L (136-145) Potassium Level 3.6 MMOL/L (3.5-5.1) Chloride Level 104 MMOL/L (98-107) Carbon Dioxide Level 28 MMOL/L (21-32) Anion Gap 10 mmol/L (5-15) Blood Urea Nitrogen 21 mg/dL (7-18) H Creatinine 1.3 MG/DL (0.55-1.30) Estimat Glomerular Filtration Rate 49.8 mL/min (>60) Glucose Level 113 MG/DL (74-106) H Hemoglobin A1c 5.9 % (4.3-6.0) Calcium Level 9.3 MG/DL (8.5-10.1) Magnesium Level 1.8 MG/DL (1.8-2.4) Troponin I 0.012 ng/mL (0.000-0.056) Pro-B-Type Natriuretic Peptide 1133 pg/mL (0-125) H Triglycerides Level 114 MG/DL (30-150) Cholesterol Level 129 MG/DL (< 200) LDL Cholesterol 74 mg/dL (<100) HDL Cholesterol 46 MG/DL (40-60) Cholesterol/HDL Ratio 2.8 (3.3-4.4) L Thyroid Stimulating Hormone (TSH) 9.860 uiU/mL (0.358-3.740) Height (Feet): 5 Height (Inches): 5.00 Weight (Pounds): 215 Medications Current Medications Medications (Trade) Dose Ordered Sig/Marline Route PRN Reason Start Time Stop Time Status Last Admin Dose Admin Acetaminophen (Tylenol) 650 mg Q4H PRN ORAL Mild Pain (Pain Scale 1-3) 11/14/17 23:30 12/14/17 23:29 Acetaminophen (Tylenol) 650 mg Q4H PRN ORAL fever 11/14/17 23:30 12/14/17 23:29 Acetaminophen/ Hydrocodone Bitart ([place] 5/325) 1 tab BID PRN ORAL For Pain 11/14/17 23:45 11/21/17 23:44 11/15/17 01:45 Albuterol/ Ipratropium (Albuterol/ Ipratropium) 3 ml Q4H PRN HHN Shortness of Breath 11/14/17 23:30 11/19/17 23:29 Albuterol/ Ipratropium (Albuterol/ Ipratropium) 3 ml Q6HRT HHN 11/15/17 01:00 11/20/17 00:59 11/15/17 19:39 Aspirin (Ecotrin) 81 mg DAILY ORAL 11/15/17 09:00 12/15/17 08:59 11/15/17 09:22 Atorvastatin Calcium (Lipitor) 20 mg BEDTIME ORAL 11/15/17 21:00 12/15/17 20:59 11/15/17 21:28 Bisacodyl (Dulcolax) 10 mg DAILYPRN PRN RECTAL Constipation 11/14/17 23:30 12/14/17 23:29 Carvedilol (Coreg) 6.25 mg EVERY 12 HOURS ORAL 11/15/17 09:00 12/15/17 08:59 11/15/17 21:28 Clopidogrel Bisulfate (Plavix) 75 mg DAILY ORAL 11/15/17 09:00 12/15/17 08:59 11/15/17 09:23 Dextrose (Dextrose 50%) 25 ml STAT PRN IV Hypoglycemia 11/14/17 23:30 12/14/17 23:29 Dextrose (Dextrose 50%) 50 ml STAT PRN IV Hypoglycemia 11/14/17 23:30 12/14/17 23:29 Docusate Sodium (Colace) 100 mg EVERY 12 HOURS ORAL 11/15/17 09:00 12/15/17 08:59 11/15/17 21:28 Furosemide (Lasix) 40 mg DAILY IV 11/15/17 09:00 12/15/17 08:59 11/15/17 09:23 Heparin Sodium (Porcine) (Heparin 5000 units/ml) 5,000 units EVERY 12 HOURS SUBQ 11/15/17 09:00 12/15/17 08:59 11/15/17 21:27 Irbesartan (Avapro) 75 mg DAILY ORAL 11/15/17 09:00 12/15/17 08:59 11/15/17 09:23 Ondansetron HCl (Zofran) 4 mg Q6H PRN IVP Nausea & Vomiting 11/14/17 23:30 12/14/17 23:29 Polyethylene Glycol (Miralax) 17 gm DAILYPRN PRN ORAL Constipation 11/14/17 23:30 12/14/17 23:29 Spironolactone (Aldactone) 25 mg DAILY ORAL 11/15/17 09:00 12/15/17 08:59 11/15/17 09:23 Assessment/Plan Status: not improved, unchanged Status Narrative 67 yo woman with h/o HTN, DM and CHF presenting with dyspnea likely secondary to CHF exacerbation Assessment/Plan 1) Acute decompensated CHF exacerbation -systolic vs diastolic -echo ordered- f/u results -continue diuresis -daily weights -I's/O's strict - Cardiology consult -continue carvedilol, valsartan 2. COPD -continue inhalers/bronchodilators -consult Pulmonary (Dr. Sorto) 3. DM -ISS -follow FBG;s 4. HTN -continue home meds- carvedilol, valsartan 5. TIA/CVA -continue clopidogrel DVT Prophylaxis:SCDs, heparin Code status:Full Hospital Classification declaration:~Based on this initial evaluation, and depending on the patient's clinical course, I anticipate that this patient will require hospitalization for 2-3 days for IV diuresis Disposition:Once the patient is stable to leave the hospital, I anticipate the patient will likely be discharged to the following environment: Home I spent 70 minutes on this patient's case, and 36~minutes was dedicated to counseling and/or care coordination. Time of note may not reflect time of encounter. Quentin Friend M.D. Nov 15, 2017 22:35
[2017-11-16] VITALS: BP 127/88
[2017-11-16] MEDS: Albuterol/Ipratropium 3ml neb HHN SCH ×4 (01:00→19:51)
[2017-11-16 04:00] VITALS: BP 133/81
[2017-11-16 08:00] VITALS: BP 189/74
--- NOTE | 2017-11-16 08:39 | General Progress Note ---
Assessment/Plan Status: stable, progressing Status Narrative 67 yo woman with acute CHF exacerbation Assessment/Plan 1) Acute decompensated CHF exacerbation -systolic vs diastolic -echo ordered- f/u results -continue diuresis -daily weights -I's/O's strict - Cardiology consulted- follow recs -continue carvedilol, irbesartan, sprinolactone 2. COPD -continue inhalers/bronchodilators -Pulmonary recs (Dr. Sorto) appreciated 3. DM -ISS -follow FBG;s 4. HTN -continue home meds- carvedilol, irbesartan, sprinolactone 5. TIA/CVA -continue clopidogrel DVT Prophylaxis: scd's, heparin Code status: full Hospital Classification declaration: Based on this initial evaluation, and depending on the patient's clinical course, I anticipate that this patient will require hospitalization for 2-3 days. Disposition: Once the patient is stable to leave the hospital, I anticipate the patient will likely be discharged to the following environment:Home I spent 45 minutes on this patient's case, and 35 minutes was dedicated to counseling and/or care coordination. Time of note may not reflect time of encounter. Subjective Date patient seen: Nov 16, 2017 Time patient seen: 09:22 ROS Limited/Unobtainable: No Constitutional: Reports: weakness HEENT: Reports: throat pain Cardiovascular: Reports: edema Respiratory: Reports: cough, orthopnea, SOB with excertion Gastrointestinal/Abdominal: Reports: no symptoms Genitourinary: Reports: no symptoms Neurologic/Psychiatric: Reports: no symptoms Endocrine: Reports: no symptoms Hematologic/Lymphatic: Reports: no symptoms Allergies: Coded Allergies: No Known Allergies (Verified , 05/05/16) All Systems: reviewed and negative except above Subjective No acute events overnight Patient improving Still with edema, orthopena and MARSH Objective Last 24 Hour Vital Signs Date Time Temp Pulse Resp B/P (MAP) Pulse Ox O2 Delivery O2 Flow Rate FiO2 11/16/17 08:00 97.1 72 20 189/74 (112) 96 97.1 11/16/17 07:59 78 16 100 Room Air 21 11/16/17 07:50 74 16 92 Room Air 21 11/16/17 04:00 73 11/16/17 04:00 98.0 96 18 133/81 (98) 96 98.0 11/16/17 01:30 Room Air 21 11/16/17 01:30 Room Air 21 11/16/17 00:00 97.9 83 20 127/88 (101) 98 97.9 11/16/17 00:00 85 11/15/17 21:28 82 128/79 11/15/17 21:00 Room Air 11/15/17 20:00 79 11/15/17 20:00 98.0 82 18 128/79 (95) 95 98.0 11/15/17 19:40 74 18 100 Room Air 21 11/15/17 19:39 72 18 98 Room Air 21 11/15/17 16:00 78 11/15/17 16:00 97.0 65 20 138/81 (100) 98 97.0 11/15/17 13:19 87 18 100 Room Air 11/15/17 13:09 87 18 98 Room Air 11/15/17 12:00 77 11/15/17 12:00 97.0 74 20 135/83 (100) 94 97.0 11/15/17 10:28 89 18 100 Room Air 11/15/17 10:21 84 18 98 Room Air 11/15/17 09:23 144/85 11/15/17 09:23 76 144/85 11/15/17 09:00 Room Air Intake and Output 11/15/17 11/16/17 19:00 07:00 Intake Total 640 ml Balance 640 ml Intake Oral 640 ml # Voids 6 # Bowel Movements 4 Height (Feet): 5 Height (Inches): 5.00 Weight (Pounds): 219 General Appearance: mild distress EENT: PERRL/EOMI, TMs normal Neck: non-tender Cardiovascular: normal rate, regular rhythm, JVD Respiratory/Chest: decreased breath sounds, crackles/rales Abdomen: normal bowel sounds Pelvis: normal external exam Extremities: normal range of motion Edema: trace edema 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 Nov 16, 2017 08:39
[2017-11-16] MEDS: Spironolactone 25mg tab ORAL SCH (09:59)
[2017-11-16] MEDS: Carvedilol 6.25mg Tab ORAL SCH ×2 (10:00→20:38)
[2017-11-16] MEDS: Aspirin EC 81mg tab ORAL SCH (10:00)
[2017-11-16] MEDS: Docusate 100mg cap ORAL SCH ×2 (10:01→20:37)
[2017-11-16] MEDS: Heparin 5000 units/ml inj SUBQ SCH ×2 (10:04→20:40)
[2017-11-16 12:00] VITALS: BP 110/72
--- NOTE | 2017-11-16 12:15 | Consultation ---
DATE OF CONSULTATION: 11/16/2017 ENDOCRINOLOGY CONSULTATION CONSULTING PHYSICIAN: Beni Zapata M.D. REFERRING PHYSICIAN: Bassem Sorto M.D. REASON FOR CONSULTATION: Abnormal thyroid function tests. HISTORY OF PRESENT ILLNESS: The patient is a 67-year-old female who is a former smoker with history of COPD, CHF, hypertension, and prior CVA and TIA, who presented with 3-day history of shortness of breath, lower extremity edema, and nonproductive cough. As part of evaluation, the thyroid function was obtained. TSH was elevated at 9. T4, T3 were normal. The patient was told in the past that her thyroid function was slightly off, but was never prescribed any medication. She does not have hypothyroid symptoms. PAST MEDICAL HISTORY: 1. Coronary artery disease. 2. CHF. 3. COPD. 4. CVA/TIA. 5. Hypertension. ALLERGIES TO MEDICATIONS: None. MEDICATIONS: Reviewed and reconciled. SOCIAL HISTORY: Former smoker. No smoking, alcohol, or drug use. FAMILY HISTORY: Noncontributory. REVIEW OF SYSTEMS: As per HPI. PHYSICAL EXAMINATION: VITAL SIGNS: Blood pressure 130/80, pulse of 80, temperature 98.2, respiratory rate of 18. HEENT: Pupils are equal and reactive to light. Sclerae anicteric. NECK: Thyromegaly especially on the right lobe. HEART: Regular. LUNGS: Clear. ABDOMEN: Positive bowel sounds. Soft. EXTREMITIES: No clubbing, cyanosis, or edema. LABORATORY VALUES: WBC 8, hemoglobin 11, hematocrit 33, and platelets of 212,000. Sodium 142, potassium 4.6, chloride 104, bicarb 28, BUN 21, creatinine 1.3. TSH of 9.8. Normal free T4, free T3. DIAGNOSES: 1. Abnormal thyroid function tests, elevated TSH with normal free T4 and free T3. 2. Abnormal thyroid exam. Thyroid mass palpable on exam. DISCUSSION: I will order a thyroid ultrasound to have a better look at the thyroid anatomy. I felt a mass on the right lobe which could be just an enlarged right thyroid lobe. The ultrasound will be able to differentiate between these two and we will see if the patient needs to have fine-needle aspiration or not. The patient has subclinical hypothyroidism. TSH is 9. T4 and T3 are normal. She is asymptomatic. We will hold off on thyroid hormone replacement for now. Thyroid function needs to be repeated in 3 to 4 weeks as an outpatient. Thank you Dr. Hameed for the courtesy of this consultation. Beni Zapata M.D. DR: Wally JOB#: [id number] CC: [email or web address]
--- NOTE | 2017-11-16 14:23 | Pulmonology Progress Note ---
Assessment/Plan Assessment/Plan ASSESSMENT: The patient is a 67-year-old female former smoker with a history of COPD, CHF, hypertension, hyperlipidemia, obesity, and prior CVA/TIA presenting with shortness of breath in the setting of decompensated heart failure. She does have a mild nonproductive cough, but this does not appear to be an exacerbation of her underlying obstructive lung disease. PROBLEM LIST: 1. Dyspnea and shortness of breath likely secondary to acute decompensated heart failure. 2. CHF, admitted with acute decompensated heart failure. 3. COPD without evidence of exacerbation. 4. Cough. 5. Hypertension. 6. Hyperlipidemia. 7. Prior CVA/TIA. 8. Elevated TSH TREATMENT PLAN: 1. Optimize pulmonary hygiene/mobilize as tolerated. 2. P.r.n. O2 to keep saturations greater than 90%. 3. Continue [id number] and p.r.n. bronchodilators. 4. Hold off on steroids and antibiotics for the time being. 5. Monitor volumes and renal function, continue diuresis as tolerated. 6. Cardiology evaluation 7. Follow up endocrine recs 8. Aspiration precautions. 9. DVT prophylaxis, heparin subcutaneous. 10. 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 Subjective Allergies: Coded Allergies: No Known Allergies (Verified , 05/05/16) Subjective AFVSS, stable on RA, feels better Less SOB, no cough, no wheezing, no F/C Objective Last 24 Hour Vital Signs Date Time Temp Pulse Resp B/P (MAP) Pulse Ox O2 Delivery O2 Flow Rate FiO2 11/16/17 13:03 78 16 100 Room Air 21 11/16/17 12:48 76 16 Room Air 21 11/16/17 12:00 86 11/16/17 12:00 98.0 84 20 110/72 (85) 95 98.0 11/16/17 10:00 189/74 11/16/17 10:00 72 189/74 11/16/17 09:00 Room Air 11/16/17 08:00 97.1 72 20 189/74 (112) 96 97.1 11/16/17 08:00 66 11/16/17 07:59 78 16 100 Room Air 21 11/16/17 07:50 74 16 92 Room Air 21 11/16/17 04:00 73 11/16/17 04:00 98.0 96 18 133/81 (98) 96 98.0 11/16/17 01:30 Room Air 21 11/16/17 01:30 Room Air 21 11/16/17 00:00 97.9 83 20 127/88 (101) 98 97.9 11/16/17 00:00 85 11/15/17 21:28 82 128/79 11/15/17 21:00 Room Air 11/15/17 20:00 79 11/15/17 20:00 98.0 82 18 128/79 (95) 95 98.0 11/15/17 19:40 74 18 100 Room Air 21 11/15/17 19:39 72 18 98 Room Air 21 11/15/17 16:00 78 11/15/17 16:00 97.0 65 20 138/81 (100) 98 97.0 Intake and Output 11/15/17 11/16/17 19:00 07:00 Intake Total 640 ml Balance 640 ml Intake Oral 640 ml # Voids 6 # Bowel Movements 4 General Appearance: WD/WN, no acute distress HEENT: normocephalic, atraumatic, anicteric, mucous membranes moist Respiratory/Chest: chest wall non-tender, lungs clear, normal breath sounds, no respiratory distress, no accessory muscle use Cardiovascular: normal peripheral pulses, normal rate, regular rhythm Abdomen: normal bowel sounds, soft, non tender, no organomegaly, non distended , no mass Extremities: no cyanosis, no clubbing, no edema Current Medications Medications (Trade) Dose Ordered Sig/Marline Route PRN Reason Start Time Stop Time Status Last Admin Dose Admin Acetaminophen (Tylenol) 650 mg Q4H PRN ORAL Mild Pain (Pain Scale 1-3) 11/14/17 23:30 12/14/17 23:29 Acetaminophen (Tylenol) 650 mg Q4H PRN ORAL fever 11/14/17 23:30 12/14/17 23:29 Acetaminophen/ Hydrocodone Bitart ([place] 5/325) 1 tab BID PRN ORAL For Pain 11/14/17 23:45 11/21/17 23:44 11/15/17 01:45 Albuterol/ Ipratropium (Albuterol/ Ipratropium) 3 ml Q4H PRN HHN Shortness of Breath 7/27/18 23:30 11/19/17 23:29 Albuterol/ Ipratropium (Albuterol/ Ipratropium) 3 ml Q6HRT HHN 11/15/17 01:00 11/20/17 00:59 11/16/17 12:51 Aspirin (Ecotrin) 81 mg DAILY ORAL 11/15/17 09:00 12/15/17 08:59 11/16/17 10:00 Atorvastatin Calcium (Lipitor) 20 mg BEDTIME ORAL 11/15/17 21:00 12/15/17 20:59 11/15/17 21:28 Bisacodyl (Dulcolax) 10 mg DAILYPRN PRN RECTAL Constipation 11/14/17 23:30 12/14/17 23:29 Carvedilol (Coreg) 6.25 mg EVERY 12 HOURS ORAL 11/15/17 09:00 12/15/17 08:59 11/16/17 10:00 Clopidogrel Bisulfate (Plavix) 75 mg DAILY ORAL 11/15/17 09:00 12/15/17 08:59 11/16/17 10:00 Dextrose (Dextrose 50%) 25 ml STAT PRN IV Hypoglycemia 11/14/17 23:30 12/14/17 23:29 Dextrose (Dextrose 50%) 50 ml STAT PRN IV Hypoglycemia 11/14/17 23:30 12/14/17 23:29 Docusate Sodium (Colace) 100 mg EVERY 12 HOURS ORAL 11/15/17 09:00 12/15/17 08:59 11/16/17 10:01 Furosemide (Lasix) 40 mg DAILY IV 11/15/17 09:00 12/15/17 08:59 11/16/17 09:59 Heparin Sodium (Porcine) (Heparin 5000 units/ml) 5,000 units EVERY 12 HOURS SUBQ 11/15/17 09:00 12/15/17 08:59 11/16/17 10:04 Irbesartan (Avapro) 75 mg DAILY ORAL 11/15/17 09:00 12/15/17 08:59 11/16/17 10:00 Ondansetron HCl (Zofran) 4 mg Q6H PRN IVP Nausea & Vomiting 11/14/17 23:30 12/14/17 23:29 Polyethylene Glycol (Miralax) 17 gm DAILYPRN PRN ORAL Constipation 11/14/17 23:30 12/14/17 23:29 Spironolactone (Aldactone) 25 mg DAILY ORAL 11/15/17 09:00 12/15/17 08:59 11/16/17 09:59 Bassem Sorto MD Nov 16, 2017 14:23
--- NOTE | 2017-11-16 14:35 | Cardiology Report ---
APPROVED REPORT EXAM: Two-dimensional and M-mode echocardiogram with Doppler and color Doppler. INDICATION Congestive Heart Failure M-Mode DIMENSIONS IVSd0.9 (0.7-1.1cm)Left Atrium (MM)4.5 (1.6-4.0cm) LVDd5.2 (3.5-5.6cm)Aortic Root2.8 (2.0-3.7cm) PWd1.5 (0.7-1.1cm)Aortic Cusp Exc.1.6 (1.5-2.0cm) IVSs1.3 cm LVDs4.1 (2.5-4.0cm) PWs1.7 cm Technically difficult study due to poor acoustical windows . Global left ventricular hypokinesis . Mild left ventricular enlargements . Left ventricular ejection fraction estimated to be 30-35 %. No evidence of left ventricular hypertrophy . Mild posterior pericardial effusion. Mild bi-atrial enlargments . Left ventricular cardiac chamber sizes are within normal limits. Focal aortic valve sclerosis with adequate cusp excursion. Thickened mitral valve leaflets with normal excursion. Mitral annulus and aortic root calcification. Pulmonic valve not well visualized. Normal tricuspid valve structure. IVC at normal size with physiologic collapse. A color flow and spectral Doppler study was performed and revealed: Trace aortic regurgitation. Trace to mild mitral regurgitation. Mitral inflow velocities indicates possible pseudo normalization pattern implying moderately elevated left atrial pressure (Grade II ) Trace tricuspid regurgitation. Tricuspid systolic velocities suggests peak right ventricular systolic pressure of 10 mmHg, Trace Pulmonic regurgitation present.
--- NOTE | 2017-11-16 14:50 | Cardiology Report ---
APPROVED REPORT EKG Measurement Heart [id number] Normal sinus rhythm Possible Left atrial enlargement Possible Anterior infarct, age undetermined Abnormal ECG
[2017-11-16 16:00] VITALS: BP 117/74
[2017-11-16 20:00] VITALS: BP 128/78
[2017-11-17] VITALS (7 sets, daily range): BP systolic 121–137; BP diastolic 71–83
[2017-11-17] MEDS: Albuterol/Ipratropium 3ml neb HHN SCH ×4 (01:25→19:28)
--- NOTE | 2017-11-17 07:05 | General Progress Note ---
Assessment/Plan Problem List: (1) Subclinical hypothyroidism ICD Codes: E03.9 - Hypothyroidism, unspecified SNOMED: 99662634 (2) Goiter ICD Codes: E04.9 - Nontoxic goiter, unspecified SNOMED: 7622458 (3) COPD exacerbation ICD Codes: J44.1 - Chronic obstructive pulmonary disease with (acute) exacerbation SNOMED: 226833281 (4) CHF exacerbation ICD Codes: I50.9 - Heart failure, unspecified SNOMED: 37595549 Assessment/Plan thyroid US ordered for further evaluation of abnormal thyroid exam - right lobe mass? the study is still pending - can be done as OP if plan is to discharge hold off on thyroid hormone replacement - she is asymptomatic repeat thyroid function in 4 weeks as OP Subjective Allergies: Coded Allergies: No Known Allergies (Verified , 05/05/16) All Systems: reviewed and negative except above Subjective events noted Objective Last 24 Hour Vital Signs Date Time Temp Pulse Resp B/P (MAP) Pulse Ox O2 Delivery O2 Flow Rate FiO2 11/17/17 04:00 97.8 83 18 121/77 (92) 95 97.8 11/17/17 04:00 79 11/17/17 01:26 75 18 97 Room Air 21 11/17/17 01:25 72 18 94 Room Air 21 11/17/17 00:00 97.4 82 18 137/83 (101) 93 97.4 11/17/17 00:00 77 11/16/17 21:00 Room Air 11/16/17 20:38 98 128/78 11/16/17 20:00 97.2 79 19 128/78 (95) 95 97.2 11/16/17 20:00 98 11/16/17 19:51 76 18 99 Room Air 21 11/16/17 19:51 70 18 97 Room Air 21 11/16/17 16:00 69 11/16/17 16:00 98.0 70 20 117/74 (88) 94 98.0 11/16/17 13:03 78 16 100 Room Air 21 11/16/17 12:48 76 16 Room Air 21 11/16/17 12:00 86 11/16/17 12:00 98.0 84 20 110/72 (85) 95 98.0 11/16/17 10:00 189/74 11/16/17 10:00 72 189/74 11/16/17 09:00 Room Air 11/16/17 08:00 97.1 72 20 189/74 (112) 96 97.1 11/16/17 08:00 66 11/16/17 07:59 78 16 100 Room Air 21 11/16/17 07:50 74 16 92 Room Air 21 Intake and Output 11/16/17 11/17/17 19:00 07:00 Intake Total 2 ml Balance 2 ml Intake Oral 2 ml # Voids 2 4 Height (Feet): 5 Height (Inches): 5.00 Weight (Pounds): 218 General Appearance: no apparent distress Neck: normal alignment Cardiovascular: normal rate Respiratory/Chest: decreased breath sounds Abdomen: normal bowel sounds Objective Current Medications Medications (Trade) Dose Ordered Sig/Marline Route PRN Reason Start Time Stop Time Status Last Admin Dose Admin Acetaminophen (Tylenol) 650 mg Q4H PRN ORAL Mild Pain (Pain Scale 1-3) 11/14/17 23:30 12/14/17 23:29 Acetaminophen (Tylenol) 650 mg Q4H PRN ORAL fever 11/14/17 23:30 12/14/17 23:29 Acetaminophen/ Hydrocodone Bitart ([place] 5/325) 1 tab BID PRN ORAL For Pain 11/14/17 23:45 11/21/17 23:44 11/15/17 01:45 Albuterol/ Ipratropium (Albuterol/ Ipratropium) 3 ml Q4H PRN HHN Shortness of Breath 11/14/17 23:30 11/19/17 23:29 Albuterol/ Ipratropium (Albuterol/ Ipratropium) 3 ml Q6HRT HHN 11/15/17 01:00 11/20/17 00:59 11/17/17 01:25 Aspirin (Ecotrin) 81 mg DAILY ORAL 11/15/17 09:00 12/15/17 08:59 11/16/17 10:00 Atorvastatin Calcium (Lipitor) 20 mg BEDTIME ORAL 11/15/17 21:00 12/15/17 20:59 11/16/17 20:37 Bisacodyl (Dulcolax) 10 mg DAILYPRN PRN RECTAL Constipation 11/14/17 23:30 12/14/17 23:29 Carvedilol (Coreg) 6.25 mg EVERY 12 HOURS ORAL 11/15/17 09:00 12/15/17 08:59 11/16/17 20:38 Clopidogrel Bisulfate (Plavix) 75 mg DAILY ORAL 11/15/17 09:00 12/15/17 08:59 11/16/17 10:00 Dextrose (Dextrose 50%) 25 ml STAT PRN IV Hypoglycemia 11/14/17 23:30 12/14/17 23:29 Dextrose (Dextrose 50%) 50 ml STAT PRN IV Hypoglycemia 11/14/17 23:30 12/14/17 23:29 Docusate Sodium (Colace) 100 mg EVERY 12 HOURS ORAL 11/15/17 09:00 12/15/17 08:59 11/16/17 20:37 Furosemide (Lasix) 40 mg DAILY IV 11/15/17 09:00 12/15/17 08:59 11/16/17 09:59 Heparin Sodium (Porcine) (Heparin 5000 units/ml) 5,000 units EVERY 12 HOURS SUBQ 11/15/17 09:00 12/15/17 08:59 11/16/17 20:40 Irbesartan (Avapro) 75 mg DAILY ORAL 11/15/17 09:00 12/15/17 08:59 11/16/17 10:00 Ondansetron HCl (Zofran) 4 mg Q6H PRN IVP Nausea & Vomiting 11/14/17 23:30 12/14/17 23:29 Polyethylene Glycol (Miralax) 17 gm DAILYPRN PRN ORAL Constipation 11/14/17 23:30 12/14/17 23:29 Spironolactone (Aldactone) 25 mg DAILY ORAL 11/15/17 09:00 12/15/17 08:59 11/16/17 09:59 Beni Zapata MD Nov 17, 2017 07:05
[2017-11-17] MEDS: Docusate 100mg cap ORAL SCH ×2 (08:49→21:00)
[2017-11-17] MEDS: Aspirin EC 81mg tab ORAL SCH (08:49)
[2017-11-17] MEDS: Spironolactone 25mg tab ORAL SCH (08:50)
[2017-11-17] MEDS: Carvedilol 6.25mg Tab ORAL SCH ×2 (08:50→21:40)
[2017-11-17] MEDS: Heparin 5000 units/ml inj SUBQ SCH ×2 (08:51→21:49)
--- NOTE | 2017-11-17 15:15 | Diagnostic Imaging Report ---
Indication: Abnormal thyroid function tests Technique: Grayscale and duplex images of the thyroid Comparison: none Findings: Right thyroid lobe measures 4.1 cm length x 1.8 cm AP. The thyroid is enlarged. The right thyroid lobe measures 4.1 cm in length by 1.8 cm AP. The left thyroid lobe measures 4.3 cm in length by 1.6 cm AP. The thyroid parenchyma is diffusely heterogeneous bilaterally. Multiple nodules are evident. On the right, the largest nodule is solid, hypoechoic, taller than wide, measures 12 mm long axis dimension. A second upper pole nodule measures 12 mm diameter, which is mostly hyperechoic with one small cystic area. On the left, the largest nodule measures 11 mm in length, is isoechoic to thyroid parenchyma, well-circumscribed, tolerate than wide. Other bilateral subcentimeter nodules are also evident. Impression: 12 mm TR-5 nodule in the right thyroid lobe. Tissue sampling is recommended, per TI-RADS recommendations Hyperechoic 12 mm TR-4 nodule in the right thyroid lobe. Short interval follow-up sonography recommended, per TI-RADS recommendations 11 mm TR 5 nodule in the left thyroid lobe. Tissue sampling recommended, per TI-RADS recommendations
--- NOTE | 2017-11-17 19:33 | Pulmonology Progress Note ---
Assessment/Plan Assessment/Plan ASSESSMENT: The patient is a 67-year-old female former smoker with a history of COPD, CHF, hypertension, hyperlipidemia, obesity, and prior CVA/TIA presenting with shortness of breath in the setting of decompensated heart failure. She does have a mild nonproductive cough, but this does not appear to be an exacerbation of her underlying obstructive lung disease. PROBLEM LIST: 1. Dyspnea and shortness of breath likely secondary to acute decompensated heart failure. 2. CHF, admitted with acute decompensated heart failure. 3. COPD without evidence of exacerbation. 4. Cough. 5. Hypertension. 6. Hyperlipidemia. 7. Prior CVA/TIA. 8. Subclinical hypothyroidism 9. Bilateral thyroid nodules TREATMENT PLAN: 1. Optimize pulmonary hygiene/mobilize as tolerated. 2. P.r.n. O2 to keep saturations greater than 90%. 3. Change HHN's to PRN only 4. Continue DAPT, BB, STATIN 5. Monitor volumes and renal function, change Lasix to 40 PO, continue Aldactone , repeat labs ordered 6. Cardiology evaluation pending 7. Follow up endocrine recs, ? thyroid US 8. Aspiration precautions. 9. DVT prophylaxis, heparin subcutaneous. 10. 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 Subjective Allergies: Coded Allergies: No Known Allergies (Verified , 05/05/16) Subjective AFVSS, stable on RA, feels better Less SOB, no cough, no wheezing, no F/C B thyroid nodules noted on US Objective Last 24 Hour Vital Signs Date Time Temp Pulse Resp B/P (MAP) Pulse Ox O2 Delivery O2 Flow Rate FiO2 11/17/17 16:00 98.1 83 20 132/71 (91) 99 98.1 11/17/17 15:31 78 11/17/17 13:05 85 18 95 Room Air 21 11/17/17 12:56 82 18 92 Room Air 21 11/17/17 12:00 97.8 82 20 123/82 (96) 96 97.8 11/17/17 11:40 80 11/17/17 09:00 Room Air 11/17/17 08:50 121/81 11/17/17 08:50 73 121/81 11/17/17 08:37 73 18 97 Room Air 21 11/17/17 08:27 77 20 88 Room Air 21 11/17/17 08:00 97.1 78 20 121/81 (94) 94 97.1 11/17/17 07:50 94 11/17/17 04:00 97.8 83 18 121/77 (92) 95 97.8 11/17/17 04:00 79 11/17/17 01:26 75 18 97 Room Air 21 11/17/17 01:25 72 18 94 Room Air 21 11/17/17 00:00 97.4 82 18 137/83 (101) 93 97.4 11/17/17 00:00 77 11/16/17 21:00 Room Air 11/16/17 20:38 98 128/78 11/16/17 20:00 97.2 79 19 128/78 (95) 95 97.2 11/16/17 20:00 98 11/16/17 19:51 76 18 99 Room Air 21 11/16/17 19:51 70 18 97 Room Air 21 Intake and Output 11/16/17 11/17/17 19:00 07:00 Intake Total 2 ml Balance 2 ml Intake Oral 2 ml # Voids 2 4 General Appearance: WD/WN, no acute distress HEENT: normocephalic, atraumatic, anicteric, mucous membranes moist Respiratory/Chest: chest wall non-tender, lungs clear, normal breath sounds, no respiratory distress, no accessory muscle use Cardiovascular: normal peripheral pulses, normal rate, regular rhythm Abdomen: normal bowel sounds, soft, non tender, no organomegaly, non distended , no mass Extremities: no cyanosis, no clubbing, no edema Current Medications Medications (Trade) Dose Ordered Sig/Marline Route PRN Reason Start Time Stop Time Status Last Admin Dose Admin Acetaminophen (Tylenol) 650 mg Q4H PRN ORAL Mild Pain (Pain Scale 1-3) 11/14/17 23:30 12/14/17 23:29 Acetaminophen (Tylenol) 650 mg Q4H PRN ORAL fever 11/14/17 23:30 12/14/17 23:29 Acetaminophen/ Hydrocodone Bitart ([place] 5/325) 1 tab BID PRN ORAL For Pain 11/14/17 23:45 8 23:44 11/15/17 01:45 Albuterol/ Ipratropium (Albuterol/ Ipratropium) 3 ml Q4H PRN HHN Shortness of Breath 11/14/17 23:30 11/19/17 23:29 Albuterol/ Ipratropium (Albuterol/ Ipratropium) 3 ml Q6HRT HHN 11/15/17 01:00 11/20/17 00:59 11/17/17 19:28 Aspirin (Ecotrin) 81 mg DAILY ORAL 11/15/17 09:00 12/15/17 08:59 11/17/17 08:49 Atorvastatin Calcium (Lipitor) 20 mg BEDTIME ORAL 11/15/17 21:00 12/15/17 20:59 11/16/17 20:37 Bisacodyl (Dulcolax) 10 mg DAILYPRN PRN RECTAL Constipation 11/14/17 23:30 12/14/17 23:29 Carvedilol (Coreg) 6.25 mg EVERY 12 HOURS ORAL 11/15/17 09:00 12/15/17 08:59 11/17/17 08:50 Clopidogrel Bisulfate (Plavix) 75 mg DAILY ORAL 11/15/17 09:00 12/15/17 08:59 11/17/17 08:49 Dextrose (Dextrose 50%) 25 ml STAT PRN IV Hypoglycemia 11/14/17 23:30 12/14/17 23:29 Dextrose (Dextrose 50%) 50 ml STAT PRN IV Hypoglycemia 11/14/17 23:30 12/14/17 23:29 Docusate Sodium (Colace) 100 mg EVERY 12 HOURS ORAL 11/15/17 09:00 12/15/17 08:59 11/17/17 08:49 Furosemide (Lasix) 40 mg DAILY IV 11/15/17 09:00 12/15/17 08:59 11/17/17 08:49 Heparin Sodium (Porcine) (Heparin 5000 units/ml) 5,000 units EVERY 12 HOURS SUBQ 11/15/17 09:00 12/15/17 08:59 11/17/17 08:51 Irbesartan (Avapro) 75 mg DAILY ORAL 11/15/17 09:00 12/15/17 08:59 11/17/17 08:50 Ondansetron HCl (Zofran) 4 mg Q6H PRN IVP Nausea & Vomiting 11/14/17 23:30 8/26/18 23:29 Polyethylene Glycol (Miralax) 17 gm DAILYPRN PRN ORAL Constipation 11/14/17 23:30 12/14/17 23:29 Spironolactone (Aldactone) 25 mg DAILY ORAL 11/15/17 09:00 12/15/17 08:59 11/17/17 08:50 Bassem Sorto MD Nov 17, 2017 19:33
[2017-11-17 21:22] LABS: BASOPHILS % (AUTO) 0.7 % (0.0-2.0); EOSINOPHILS % (AUTO) 2.5 % (0.0-3.0); HEMATOCRIT 34.9 % (37.0-47.0); HEMOGLOBIN 11.5 G/DL (12.0-16.0); LYMPHOCYTES % (AUTO) 28.7 % (20.0-45.0); MEAN CORPUSCULAR VOLUME 93 FL (80-99); NEUTROPHILS % (AUTO) 63.1 % (45.0-75.0); PLATELET COUNT 196 K/UL (150-450); RED BLOOD COUNT 3.74 M/UL (4.20-5.40); RED CELL DISTRIBUTION WIDTH 11.7 % (11.6-14.8); WHITE BLOOD COUNT 9.9 K/UL (4.8-10.8)
[2017-11-17 21:38] LABS: ALANINE AMINOTRANSFERASE 33 U/L (12-78); ALBUMIN 3.3 G/DL (3.4-5.0); ALBUMIN/GLOBULIN RATIO 0.7 (1.0-2.7); ALKALINE PHOSPHATASE 126 U/L (46-116); ANION GAP 11 mmol/L (5-15); ASPARTATE AMINO TRANSFERASE 34 U/L (15-37); BILIRUBIN,TOTAL 0.3 MG/DL (0.2-1.0); BLOOD UREA NITROGEN 26 mg/dL (7-18); CALCIUM 9.3 MG/DL (8.5-10.1); CARBON DIOXIDE 25 MMOL/L (21-32); CHLORIDE 104 MMOL/L (98-107); CREATININE 1.2 MG/DL (0.55-1.30); POTASSIUM 4.4 MMOL/L (3.5-5.1); SODIUM 140 MMOL/L (136-145)
[2017-11-18] MEDS: Norco 5mg/325mg tab ORAL PRN (02:01)
[2017-11-18 04:00] VITALS: BP 111/58
[2017-11-18] MEDS ORDERED: guaiFENesin w/Codeine 5ml Liq ud ORAL PRN (05:30)
[2017-11-18 08:00] VITALS: BP 107/59
--- NOTE | 2017-11-18 08:03 | General Progress Note ---
Assessment/Plan Problem List: (1) Subclinical hypothyroidism ICD Codes: E03.9 - Hypothyroidism, unspecified SNOMED: 59305741 (2) Goiter ICD Codes: E04.9 - Nontoxic goiter, unspecified SNOMED: 3525445 (3) COPD exacerbation ICD Codes: J44.1 - Chronic obstructive pulmonary disease with (acute) exacerbation SNOMED: 626073141 (4) CHF exacerbation ICD Codes: I50.9 - Heart failure, unspecified SNOMED: 06062878 Assessment/Plan thyroid US reviewed dominant nodules on the right and left lobes have indication for FNA will plan for the procedure to be done as OP since she is on Plavix hold off on thyroid hormone replacement - she is asymptomatic repeat thyroid function in 4 weeks as OP I will follow her as OP for her thyroid issues Subjective Allergies: Coded Allergies: No Known Allergies (Verified , 05/05/16) All Systems: reviewed and negative except above Subjective events noted Objective Last 24 Hour Vital Signs Date Time Temp Pulse Resp B/P (MAP) Pulse Ox O2 Delivery O2 Flow Rate FiO2 11/18/17 04:00 76 11/18/17 04:00 97.4 73 16 111/58 (75) 96 97.4 11/18/17 00:47 86 18 98 Room Air 21 11/18/17 00:37 85 18 98 Room Air 21 11/18/17 00:00 76 11/17/17 23:40 97.7 78 18 124/77 (93) 97 97.7 11/17/17 21:40 81 127/81 11/17/17 21:00 Room Air 11/17/17 20:00 97.6 81 16 127/81 (96) 97 97.6 11/17/17 20:00 79 11/17/17 19:38 78 18 100 Room Air 21 11/17/17 19:28 65 16 96 Room Air 21 11/17/17 16:00 98.1 83 20 132/71 (91) 99 98.1 11/17/17 15:31 78 11/17/17 13:05 85 18 95 Room Air 21 11/17/17 12:56 82 18 92 Room Air 21 11/17/17 12:00 97.8 82 20 123/82 (96) 96 97.8 11/17/17 11:40 80 11/17/17 09:00 Room Air 11/17/17 08:50 121/81 11/17/17 08:50 73 121/81 11/17/17 08:37 73 18 97 Room Air 21 11/17/17 08:27 77 20 88 Room Air 21 Intake and Output 11/17/17 11/18/17 19:00 07:00 Intake Total 780 ml 360 ml Balance 780 ml 360 ml Intake Oral 780 ml 360 ml # Voids 4 3 Laboratory Tests 11/17/17 20:28: White Blood Count 9.9, Red Blood Count 3.74L, Hemoglobin 11.5L, Hematocrit 34.9L , Mean Corpuscular Volume 93, Mean Corpuscular Hemoglobin 30.6, Mean Corpuscular Hemoglobin Concent 32.8, Red Cell Distribution Width 11.7, Platelet Count 196, Mean Platelet Volume 6.8, Neutrophils (%) (Auto) 63.1, Lymphocytes (% ) (Auto) 28.7, Monocytes (%) (Auto) 5.0, Eosinophils (%) (Auto) 2.5, Basophils ( %) (Auto) 0.7, Sodium Level 140, Potassium Level 4.4, Chloride Level 104, Carbon Dioxide Level 25, Anion Gap 11, Blood Urea Nitrogen 26H, Creatinine 1.2, Estimat Glomerular Filtration Rate 54.7, Glucose Level 134H, Calcium Level 9.3, Total Bilirubin 0.3, Aspartate Amino Transf (AST/SGOT) 34, Alanine Aminotransferase (ALT/SGPT) 33, Alkaline Phosphatase 126H, Pro-B-Type Natriuretic Peptide 411H, Total Protein 8.1, Albumin 3.3L, Globulin 4.8, Albumin /Globulin Ratio 0.7L Height (Feet): 5 Height (Inches): 5.00 Weight (Pounds): 221 General Appearance: no apparent distress Neck: normal alignment Cardiovascular: normal rate Respiratory/Chest: decreased breath sounds Abdomen: normal bowel sounds Pelvis: normal external exam Edema: no edema noted Arm (L), no edema noted Arm (R), no edema noted Leg (L), no edema noted Leg (R), no edema noted Pedal (L), no edema noted Pedal (R), no edema noted Generalized Objective Current Medications Medications (Trade) Dose Ordered Sig/Marline Route PRN Reason Start Time Stop Time Status Last Admin Dose Admin Acetaminophen (Tylenol) 650 mg Q4H PRN ORAL Mild Pain (Pain Scale 1-3) 11/14/17 23:30 12/14/17 23:29 Acetaminophen (Tylenol) 650 mg Q4H PRN ORAL fever 11/14/17 23:30 12/14/17 23:29 Acetaminophen/ Hydrocodone Bitart ([place] 5/325) 1 tab BID PRN ORAL For Pain 11/14/17 23:45 11/21/17 23:44 11/18/17 02:01 Albuterol/ Ipratropium (Albuterol/ Ipratropium) 3 ml Q4H PRN HHN Shortness of Breath 11/14/17 23:30 11/19/17 23:29 11/18/17 00:36 Aspirin (Ecotrin) 81 mg DAILY ORAL 11/15/17 09:00 12/15/17 08:59 11/17/17 08:49 Atorvastatin Calcium (Lipitor) 20 mg BEDTIME ORAL 11/15/17 21:00 12/15/17 20:59 11/17/17 21:40 Bisacodyl (Dulcolax) 10 mg DAILYPRN PRN RECTAL Constipation 11/14/17 23:30 12/14/17 23:29 Carvedilol (Coreg) 6.25 mg EVERY 12 HOURS ORAL 11/15/17 09:00 12/15/17 08:59 11/17/17 21:40 Clopidogrel Bisulfate (Plavix) 75 mg DAILY ORAL 11/15/17 09:00 12/15/17 08:59 11/17/17 08:49 Dextrose (Dextrose 50%) 25 ml STAT PRN IV Hypoglycemia 11/14/17 23:30 12/14/17 23:29 Dextrose (Dextrose 50%) 50 ml STAT PRN IV Hypoglycemia 11/14/17 23:30 12/14/17 23:29 Docusate Sodium (Colace) 100 mg EVERY 12 HOURS ORAL 11/15/17 09:00 12/15/17 08:59 11/17/17 08:49 Furosemide (Lasix) 40 mg DAILY ORAL 11/18/17 09:00 12/18/17 08:59 Guaifenesin/ Codeine Phosphate (Robitussin with codeine) 5 ml Q4H PRN ORAL For Cough 11/18/17 05:30 12/18/17 05:29 Heparin Sodium (Porcine) (Heparin 5000 units/ml) 5,000 units EVERY 12 HOURS SUBQ 11/15/17 09:00 12/15/17 08:59 11/17/17 21:49 Irbesartan (Avapro) 75 mg DAILY ORAL 11/15/17 09:00 12/15/17 08:59 11/17/17 08:50 Ondansetron HCl (Zofran) 4 mg Q6H PRN IVP Nausea & Vomiting 11/14/17 23:30 12/14/17 23:29 Polyethylene Glycol (Miralax) 17 gm DAILYPRN PRN ORAL Constipation 11/14/17 23:30 12/14/17 23:29 Spironolactone (Aldactone) 25 mg DAILY ORAL 11/15/17 09:00 12/15/17 08:59 11/17/17 08:50 Beni Zapata MD Nov 18, 2017 08:03
--- NOTE | 2017-11-18 08:39 | Pulmonology Progress Note ---
Assessment/Plan Assessment/Plan ASSESSMENT: The patient is a 67-year-old female former smoker with a history of COPD, CHF, hypertension, hyperlipidemia, obesity, and prior CVA/TIA presenting with shortness of breath in the setting of decompensated heart failure. She does have a mild nonproductive cough, but this does not appear to be an exacerbation of her underlying obstructive lung disease. PROBLEM LIST: 1. Dyspnea and shortness of breath likely secondary to acute decompensated heart failure. 2. CHF, admitted with acute decompensated heart failure. 3. COPD without evidence of exacerbation. 4. Cough. 5. Hypertension. 6. Hyperlipidemia. 7. Prior CVA/TIA. 8. Subclinical hypothyroidism 9. Bilateral thyroid nodules TREATMENT PLAN: 1. Optimize pulmonary hygiene/mobilize as tolerated. 2. PRN O2 3. PRN HHN's 4. Continue DAPT, BB, STATIN 5. Monitor volumes and renal function, continue PO Lasix & Aldactone 6. Dispo pending cardiology eval 7. Follow up endocrine recs --> outpatient thyroid FNA as patient is on Plavix 8. Aspiration precautions. 9. DVT prophylaxis, heparin subcutaneous. 10. 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 Subjective Allergies: Coded Allergies: No Known Allergies (Verified , 05/05/16) Subjective AFVSS, stable on RA Less SOB, + cough this am, no wheezing, no F/C Objective Last 24 Hour Vital Signs Date Time Temp Pulse Resp B/P (MAP) Pulse Ox O2 Delivery O2 Flow Rate FiO2 11/18/17 08:24 75 18 Room Air 11/18/17 08:00 97.3 70 20 107/59 (75) 93 97.3 11/18/17 04:00 76 11/18/17 04:00 97.4 73 16 111/58 (75) 96 97.4 11/18/17 00:47 86 18 98 Room Air 21 11/18/17 00:37 85 18 98 Room Air 21 11/18/17 00:00 76 11/17/17 23:40 97.7 78 18 124/77 (93) 97 97.7 11/17/17 21:40 81 127/81 11/17/17 21:00 Room Air 11/17/17 20:00 97.6 81 16 127/81 (96) 97 97.6 11/17/17 20:00 79 11/17/17 19:38 78 18 100 Room Air 21 11/17/17 19:28 65 16 96 Room Air 21 11/17/17 16:00 98.1 83 20 132/71 (91) 99 98.1 11/17/17 15:31 78 11/17/17 13:05 85 18 95 Room Air 21 11/17/17 12:56 82 18 92 Room Air 21 11/17/17 12:00 97.8 82 20 123/82 (96) 96 97.8 11/17/17 11:40 80 11/17/17 09:00 Room Air 11/17/17 08:50 121/81 11/17/17 08:50 73 121/81 Intake and Output 11/17/17 11/18/17 19:00 07:00 Intake Total 780 ml 360 ml Balance 780 ml 360 ml Intake Oral 780 ml 360 ml # Voids 4 3 General Appearance: WD/WN, no acute distress HEENT: normocephalic, atraumatic, anicteric, mucous membranes moist Respiratory/Chest: chest wall non-tender, lungs clear, normal breath sounds, no respiratory distress, no accessory muscle use Cardiovascular: normal peripheral pulses, normal rate, regular rhythm Abdomen: normal bowel sounds, soft, non tender, no organomegaly, non distended Extremities: no cyanosis, no clubbing, no edema Laboratory Tests 11/17/17 20:28: White Blood Count 9.9, Red Blood Count 3.74L, Hemoglobin 11.5L, Hematocrit 34.9L , Mean Corpuscular Volume 93, Mean Corpuscular Hemoglobin 30.6, Mean Corpuscular Hemoglobin Concent 32.8, Red Cell Distribution Width 11.7, Platelet Count 196, Mean Platelet Volume 6.8, Neutrophils (%) (Auto) 63.1, Lymphocytes (% ) (Auto) 28.7, Monocytes (%) (Auto) 5.0, Eosinophils (%) (Auto) 2.5, Basophils ( %) (Auto) 0.7, Sodium Level 140, Potassium Level 4.4, Chloride Level 104, Carbon Dioxide Level 25, Anion Gap 11, Blood Urea Nitrogen 26H, Creatinine 1.2, Estimat Glomerular Filtration Rate 54.7, Glucose Level 134H, Calcium Level 9.3, Total Bilirubin 0.3, Aspartate Amino Transf (AST/SGOT) 34, Alanine Aminotransferase (ALT/SGPT) 33, Alkaline Phosphatase 126H, Pro-B-Type Natriuretic Peptide 411H, Total Protein 8.1, Albumin 3.3L, Globulin 4.8, Albumin /Globulin Ratio 0.7L Current Medications Medications (Trade) Dose Ordered Sig/Marline Route PRN Reason Start Time Stop Time Status Last Admin Dose Admin Acetaminophen (Tylenol) 650 mg Q4H PRN ORAL Mild Pain (Pain Scale 1-3) 11/14/17 23:30 12/14/17 23:29 Acetaminophen (Tylenol) 650 mg Q4H PRN ORAL fever 11/14/17 23:30 12/14/17 23:29 Acetaminophen/ Hydrocodone Bitart ([place] 5/325) 1 tab BID PRN ORAL For Pain 11/14/17 23:45 11/21/17 23:44 11/18/17 02:01 Albuterol/ Ipratropium (Albuterol/ Ipratropium) 3 ml Q4H PRN HHN Shortness of Breath 11/14/17 23:30 11/19/17 23:29 11/18/17 00:36 Aspirin (Ecotrin) 81 mg DAILY ORAL 11/15/17 09:00 12/15/17 08:59 11/17/17 08:49 Atorvastatin Calcium (Lipitor) 20 mg BEDTIME ORAL 11/15/17 21:00 12/15/17 20:59 11/17/17 21:40 Bisacodyl (Dulcolax) 10 mg DAILYPRN PRN RECTAL Constipation 11/14/17 23:30 12/14/17 23:29 Carvedilol (Coreg) 6.25 mg EVERY 12 HOURS ORAL 11/15/17 09:00 12/15/17 08:59 11/17/17 21:40 Clopidogrel Bisulfate (Plavix) 75 mg DAILY ORAL 11/15/17 09:00 12/15/17 08:59 11/17/17 08:49 Dextrose (Dextrose 50%) 25 ml STAT PRN IV Hypoglycemia 11/14/17 23:30 12/14/17 23:29 Dextrose (Dextrose 50%) 50 ml STAT PRN IV Hypoglycemia 11/14/17 23:30 12/14/17 23:29 Docusate Sodium (Colace) 100 mg EVERY 12 HOURS ORAL 11/15/17 09:00 12/15/17 08:59 11/17/17 08:49 Furosemide (Lasix) 40 mg DAILY ORAL 11/18/17 09:00 12/18/17 08:59 Guaifenesin/ Codeine Phosphate (Robitussin with codeine) 5 ml Q4H PRN ORAL For Cough 11/18/17 05:30 12/18/17 05:29 Heparin Sodium (Porcine) (Heparin 5000 units/ml) 5,000 units EVERY 12 HOURS SUBQ 11/15/17 09:00 12/15/17 08:59 11/17/17 21:49 Irbesartan (Avapro) 75 mg DAILY ORAL 11/15/17 09:00 12/15/17 08:59 11/17/17 08:50 Ondansetron HCl (Zofran) 4 mg Q6H PRN IVP Nausea & Vomiting 11/14/17 23:30 12/14/17 23:29 Polyethylene Glycol (Miralax) 17 gm DAILYPRN PRN ORAL Constipation 11/14/17 23:30 12/14/17 23:29 Spironolactone (Aldactone) 25 mg DAILY ORAL 11/15/17 09:00 12/15/17 08:59 11/17/17 08:50 Bassem Sorto MD Nov 18, 2017 08:39
[2017-11-18] MEDS ORDERED: Furosemide 40mg tab ORAL SCH (09:00)
[2017-11-18] MEDS: Spironolactone 25mg tab ORAL SCH (09:37)
[2017-11-18] MEDS: Docusate 100mg cap ORAL SCH (09:37)
[2017-11-18] MEDS: Carvedilol 6.25mg Tab ORAL SCH (09:37)
[2017-11-18] MEDS: Aspirin EC 81mg tab ORAL SCH (09:37)
[2017-11-18] MEDS: Heparin 5000 units/ml inj SUBQ SCH (09:41)
--- NOTE | 2017-11-18 09:51 | Cardiac Electrophysiology PN ---
Subjective Subjective Cardiology consult dictated. [id number] Objective Last 24 Hour Vital Signs Date Time Temp Pulse Resp B/P (MAP) Pulse Ox O2 Delivery O2 Flow Rate FiO2 11/18/17 09:37 75 107/59 11/18/17 09:36 107/59 11/18/17 08:24 75 18 Room Air 11/18/17 08:00 97.3 70 20 107/59 (75) 93 97.3 11/18/17 04:00 76 11/18/17 04:00 97.4 73 16 111/58 (75) 96 97.4 11/18/17 00:47 86 18 98 Room Air 21 11/18/17 00:37 85 18 98 Room Air 21 11/18/17 00:00 76 11/17/17 23:40 97.7 78 18 124/77 (93) 97 97.7 11/17/17 21:40 81 127/81 11/17/17 21:00 Room Air 11/17/17 20:00 97.6 81 16 127/81 (96) 97 97.6 11/17/17 20:00 79 11/17/17 19:38 78 18 100 Room Air 21 11/17/17 19:28 65 16 96 Room Air 21 11/17/17 16:00 98.1 83 20 132/71 (91) 99 98.1 11/17/17 15:31 78 11/17/17 13:05 85 18 95 Room Air 21 11/17/17 12:56 82 18 92 Room Air 21 11/17/17 12:00 97.8 82 20 123/82 (96) 96 97.8 11/17/17 11:40 80 Intake and Output 11/17/17 11/18/17 19:00 07:00 Intake Total 780 ml 360 ml Balance 780 ml 360 ml Intake Oral 780 ml 360 ml # Voids 4 3 Laboratory Tests Test 11/17/17 20:28 White Blood Count 9.9 K/UL (4.8-10.8) Red Blood Count 3.74 M/UL (4.20-5.40) L Hemoglobin 11.5 G/DL (12.0-16.0) L Hematocrit 34.9 % (37.0-47.0) L Mean Corpuscular Volume 93 FL (80-99) Mean Corpuscular Hemoglobin 30.6 PG (27.0-31.0) Mean Corpuscular Hemoglobin Concent 32.8 G/DL (32.0-36.0) Red Cell Distribution Width 11.7 % (11.6-14.8) Platelet Count 196 K/UL (150-450) Mean Platelet Volume 6.8 FL (6.5-10.1) Neutrophils (%) (Auto) 63.1 % (45.0-75.0) Lymphocytes (%) (Auto) 28.7 % (20.0-45.0) Monocytes (%) (Auto) 5.0 % (1.0-10.0) Eosinophils (%) (Auto) 2.5 % (0.0-3.0) Basophils (%) (Auto) 0.7 % (0.0-2.0) Sodium Level 140 MMOL/L (136-145) Potassium Level 4.4 MMOL/L (3.5-5.1) Chloride Level 104 MMOL/L (98-107) Carbon Dioxide Level 25 MMOL/L (21-32) Anion Gap 11 mmol/L (5-15) Blood Urea Nitrogen 26 mg/dL (7-18) H Creatinine 1.2 MG/DL (0.55-1.30) Estimat Glomerular Filtration Rate 54.7 mL/min (>60) Glucose Level 134 MG/DL (74-106) H Calcium Level 9.3 MG/DL (8.5-10.1) Total Bilirubin 0.3 MG/DL (0.2-1.0) Aspartate Amino Transf (AST/SGOT) 34 U/L (15-37) Alanine Aminotransferase (ALT/SGPT) 33 U/L (12-78) Alkaline Phosphatase 126 U/L (46-116) H Pro-B-Type Natriuretic Peptide 411 pg/mL (0-125) H Total Protein 8.1 G/DL (6.4-8.2) Albumin 3.3 G/DL (3.4-5.0) L Globulin 4.8 g/dL Albumin/Globulin Ratio 0.7 (1.0-2.7) L Kendall Gomes MD Nov 18, 2017 09:51
[2017-11-18] MEDS ORDERED: Abreva 10% cream 2gm TP SCH (10:00)
--- NOTE | 2017-11-18 10:32 | Diagnostic Imaging Report ---
Indication: Cough Technique: XRAY Chest 2v Comparison: 11/14/2017 Findings: Heart size is within upper limits for normal. Mediastinal contours are sharp. There is no focal airspace consolidation, pleural effusion or pneumothorax. Pulmonary vascularity within normal limits. There are mild degenerative changes of the spine. No acute osseous abnormality seen. Impression: No radiographic evidence of acute cardiopulmonary disease.
[2017-11-18 12:00] VITALS: BP 116/55
[2017-11-18 12:07] LABS: BASOPHILS % (AUTO) 0.5 % (0.0-2.0); EOSINOPHILS % (AUTO) 2.6 % (0.0-3.0); HEMATOCRIT 36.4 % (37.0-47.0); HEMOGLOBIN 11.7 G/DL (12.0-16.0); LYMPHOCYTES % (AUTO) 31.8 % (20.0-45.0); MEAN CORPUSCULAR VOLUME 94 FL (80-99); NEUTROPHILS % (AUTO) 58.2 % (45.0-75.0); PLATELET COUNT 213 K/UL (150-450); RED BLOOD COUNT 3.87 M/UL (4.20-5.40); RED CELL DISTRIBUTION WIDTH 11.7 % (11.6-14.8); WHITE BLOOD COUNT 8.1 K/UL (4.8-10.8)
[2017-11-18 12:27] LABS: ANION GAP 10 mmol/L (5-15); BLOOD UREA NITROGEN 23 mg/dL (7-18); CALCIUM 9.1 MG/DL (8.5-10.1); CARBON DIOXIDE 24 MMOL/L (21-32); CHLORIDE 104 MMOL/L (98-107); CREATININE 1.1 MG/DL (0.55-1.30); POTASSIUM 3.7 MMOL/L (3.5-5.1); SODIUM 138 MMOL/L (136-145)
--- NOTE | 2017-11-18 12:52 | Discharge Summary ---
Discharge Summary Hospital Course Date of Admission Nov 14, 2017 at 20:25 Date of Discharge November 18, 2017 Admitting Diagnosis CHF exacerbation HPI Kraig Quijano is a 67 year old female who was admitted on Nov 14, 2017 at 20 :25 for Congestive Heart Failure Exacerbation 67 yo woman presenting with worsening MARSH, orthopena and paroxysmal nocturnal dyspnea over the past few days Denies chest pain, fevers or chills In ED, received 40mg IV furosemide Consultations Cardiology Pulmonology Endocrinology Procedures None Hospital Course Patient was admitted and serial troponins were negative. EKG did not show any acute ST or T wave changes. ECHO showed EF of 30-35%. Cardiology was consulted. Patient was started on lasix and BNP slowly downtrended and SOB resolved. Patient was also noted to have a persistent dry cough and pulmonology was consulted. CXR was negative and patient was given guafenesin, which helped alleviate her symptoms. Cough was not thought to be due to COPD exacerbation but more likely 2/2 CHF exacerbation. Patient was also noted to have an elevated TSH of 9 and endocrinology was consulted. Thyroid ultrasound was performed, which revealed 12 mm TR-5 nodule in the right thyroid lobe. Hyperechoic 12 mm TR-4 nodule in the right thyroid lobe. 11 mm TR 5 nodule in the left thyroid lobe. Since patient is on plavix and will need to be off of plavix for 5 days prior to thyroid FNA to be performed, this was recommended to be done as outpatient. Since patient was asymptomatic, thyroid medications were not initiated per endocrinology. Patient was therefore hemodynamically stable to be discharged back home and patient was advised to follow up with PCP, cardiology, and endocrinology within 1 week. Physical Exam on day of discharge General: NAD HEENT: atraumatic, supple, no LAD Lungs: CTAB Cardiology: RRR Abdomen: S/NT/ND Extremities: 1+ edema bilaterally Skin: no rashes Discharge Medications Continued Medications: Aspirin Ec* (Aspirin Ec*) 81 Mg Tablet.dr 81 MG ORAL DAILY for 30 Days, TAB Atorvastatin Calcium* (Lipitor*) 20 Mg Tablet 20 MG ORAL BEDTIME for 30 Days, TAB Carvedilol* (Carvedilol*) 6.25 Mg Tablet 6.25 MG ORAL EVERY 12 HOURS, TAB Cetirizine Hcl* (Zyrtec*) 10 Mg Tablet 10 MG ORAL DAILY, #30 TAB 0 Refills Clobetasol Propionate (Clobetasol Propionate) 0.5 Gm Powder 0.5 GM MC, GM Clopidogrel* (Clopidogrel*) 75 Mg Tablet 75 MG ORAL DAILY, TAB Furosemide* (Lasix*) 40 Mg Tablet 40 MG ORAL DAILY, TAB Hydrocodone Bit/Acetaminophen 5-325* ([place] 5-325*) 1 Each Tablet 1 TAB ORAL BID PRN for For Pain, TAB 0 Refills Spironolactone (Aldactone) 25 Mg Tablet 25 MG ORAL DAILY for 30 Days, TAB Tobramycin/Dexamethasone (Tobradex Eye Drops) 5 Ml Drops.susp 5 ML OP TWICE A DAY for 3 Days, ML Valsartan (Diovan) 80 Mg Tab 80 MG ORAL DAILY, TAB Vitamin D (Vitamin D3) 400 Unit Tablet 400 UNITS ORAL DAILY, TAB Discontinued Medications: Atorvastatin Calcium* (Atorvastatin Calcium*) 20 Mg Tablet 10 MG ORAL BEDTIME, TAB Furosemide* (Lasix*) 40 Mg Tablet 40 MG ORAL DAILY, TAB Furosemide* (Lasix*) 20 Mg Tablet 20 MG ORAL DAILY, TAB Potassium Chloride* (K-Dur*) 10 Meq Capsule.er 10 MEQ ORAL DAILY, #7 TAB 0 Refills Potassium Chloride* (K-Dur*) 20 Meq Tab.er.prt 20 MEQ ORAL DAILY, #7 TAB 0 Refills Verapamil HCl (Verapamil ER) 120 Mg Cap24h.pel 120 MG ORAL DAILY for 30 Days, #30 CAP Discharge Condition Upon Discharge: improving, stable Discharge Disposition Patient was discharged to home with home health Discharge Diagnoses: (1) History of CVA (cerebrovascular accident) (2) COPD (chronic obstructive pulmonary disease) (3) Subclinical hypothyroidism (4) Goiter (5) CHF exacerbation (6) CAD (coronary artery disease) Juana Sheets NP Nov 18, 2017 12:51
--- NOTE | 2017-11-18 13:00 | Consultation ---
DATE OF CONSULTATION: CARDIOLOGY CONSULTATION CONSULTING PHYSICIAN: Kendall Gomes M.D. REFERRING PHYSICIAN: Bassem Sorto M.D. ADDITIONAL REFERRING PHYSICIAN: Tye Blancas M.D. REASON FOR CONSULTATION: Congestive heart failure. HISTORY OF PRESENT ILLNESS: The patient is a very pleasant 67-year-old lady with history of hypertension, COPD, congestive heart failure, and history of prior CVA, who presented to the hospital with 3 days of increasing shortness of breath and lower extremity edema. The patient underwent an echocardiogram which showed ejection fraction of 35% to 40%. Her EKG also showed left atrial enlargement, poor R-wave progression, possible anterior wall NM. The patient was started on IV Lasix and Cardiology consultation was obtained for further evaluation and management. REVIEW OF SYSTEMS: Negative other than what was mentioned in history of present illness. PAST MEDICAL HISTORY: 1. Hypertension. 2. Congestive heart failure. 3. Coronary artery disease. 4. COPD. 5. CVA and TIA. ALLERGIES: She has no known drug allergies. MEDICATIONS: Per reconciliation. SOCIAL HISTORY: She is a former smoker. Does not smoke or drink alcohol currently. PHYSICAL EXAMINATION: VITAL SIGNS: Her blood pressure is 107/59, pulse 75, respirations 18, and temperature 97.3. HEAD AND NECK: Showed no JVD. LUNGS: Coarse rhonchi. CARDIOVASCULAR: Shows regular S1 and S2 with no gallop or murmur. ABDOMEN: Soft. EXTREMITIES: A 1+ pitting edema. LABORATORY DATA: White count 9.9, hemoglobin 11.5, hematocrit 35, platelet count 196,000. Sodium 140, potassium 4.4, BUN of 22, creatinine 1.2, glucose 134. Troponin is negative. BNP was 1133. ASSESSMENT AND PLAN: 1. Congestive heart failure. BNP of 1133 as well as EF of 35% to 40%. The patient is on Lasix 40 mg p.o. daily, Coreg 6.25 mg b.i.d., Aldactone 25 mg daily as well as Avapro 75 mg daily that would be continued. We will repeat the echocardiogram in three months. If ejection fraction remains less than 35%, she may benefit from a prophylactic defibrillator implantation. 2. Hypertension. Continue current heart failure therapy as mentioned above. 3. Hyperlipidemia. On Lipitor. 4. COPD without evidence of exacerbation. 5. Prior TIA and CVA. 6. Subclinical . 7. Bilateral thyroid nodules. Outpatient thyroid FNA per Dr. Zapata. Thank you very much for allowing me to participate in the care of this patient. Please do not hesitate to contact me for any questions regarding my evaluation. Kendall Gomes M.D. DR: Heather JOB#: [id number] CC:
[2017-11-18] MEDS ORDERED: Atorvastatin 20mg tab ORAL SCH (21:00)
== END 2017-11-18 14:58 | disposition home health service (06) | DRG 293 ==
LOC: EMR 18:09 → 2E 20:25 → EDBEDREQ 21:03
DX: I11.0 Hypertensive heart disease with heart failure (principal); I50.9 Heart failure, unspecified; J44.9 Chronic obstructive pulmonary disease, unspecified; E04.9 Nontoxic goiter, unspecified; Z86.73 Personal history of transient ischemic attack (TIA), and cerebral infarction without residual deficits; E02 Subclinical iodine-deficiency hypothyroidism; I25.10 Atherosclerotic heart disease of native coronary artery without angina pectoris; Z79.02 Long term (current) use of antithrombotics/antiplatelets; Z87.891 Personal history of nicotine dependence; E78.5 Hyperlipidemia, unspecified
CPT/HCPCS: 36415; 71045; 71046; 76536; 80048; 80053; 80061; 80307; 81003; 82550; 82553; 83036; 83735; 83880; 84439; 84443; 84480; 84481; 84484; 85025; 85610; 85730; 93005; 93306; 94640; 94664; J7620

== ENCOUNTER → 2018-02-27 | Emergency (ER) | payer MEDICARE, MEDICAID ==
[~2018-02-27] VITALS: Ht 165.1 cm; Wt 98.4 kg
[~2018-02-27] MED LIST changes: +ATORVASTATIN CA20 MG ORAL; +CARVEDILOL6.25 MG ORAL; +CLOPIDOGREL75 MG ORAL; +Levothyroxine 25mcg tab ONE; +Levothyroxine 25mcg tab ORAL SCH; +POTASSIUM CHLO10 MEQ ORAL; +POTASSIUM CHLO20 ME1 ORAL; +SYNTHROID25 MCG ORAL; +TYLENOL325 MG ORAL; +VITAMIN D400 INTLU ORAL; +ZYRTEC10 MG ORAL
[2018-02-27 20:20] VITALS: BP 153/89
--- NOTE | 2018-02-27 20:54 | Emergency Room Report ---
History of Present Illness General Chief Complaint: Dyspnea/Respdistress Source: Patient Present Illness HPI The patient presents with dyspnea. She took her water pill earlier today.. She told the triage nurse it didn't work but tells me that it did. She has some watery phlegm. She alleges that this might be related to her thyroid. She denies any fevers or chills. There's no color to the phlegm. She denies any chest pain but has some pressure. There is no edema or calf pain. Patient has a history of congestive heart failure, coronary artery disease, CVA. The patient will complete also complains of pain in her left hip. This is a chronic problem. She denies taking medication for this at this time. Allergies: Coded Allergies: No Known Allergies (Verified , 05/05/16) Patient History Past Medical History: see triage record Social History: Denies: smoking - Former Social History Narrative with her daughter Last Menstrual Period: 30 years ago Now: No Reviewed Nursing Documentation: PMH: Agreed; PSxH: Agreed Nursing Documentation-PMH Hx Cardiac Problems: Yes Hx Hypertension: Yes Hx Pacemaker: No Hx COPD: Yes Hx Diabetes: No Hx Cancer: No Hx Gastrointestinal Problems: No Hx Neurological Problems: No Hx Cerebrovascular Accident: Yes Hx Neurologic Surgery: No Review of Systems All Other Systems: negative except mentioned in HPI Physical Exam Vital Signs Date Time Temp Pulse Resp B/P (MAP) Pulse Ox O2 Delivery O2 Flow Rate FiO2 02/27/18 20:10 97.9 71 20 153/89 96 Room Air Sp02 EP Interpretation: reviewed, normal General Appearance: well appearing, no apparent distress Head: normocephalic, atraumatic Eyes: bilateral eye normal inspection, bilateral eye PERRL ENT: hearing grossly normal, normal voice, moist mucus membranes Neck: full range of motion, supple Respiratory: chest non-tender, lungs clear, normal breath sounds, no respiratory distress, speaking full sentences Cardiovascular #1: regular rate, rhythm Cardiovascular #2: 2+ radial (R) Gastrointestinal: normal inspection, normal bowel sounds, non tender, soft, overweight Genitourinary: no CVA tenderness Musculoskeletal: back normal, digits/nails normal, normal range of motion, no calf tenderness, other - Walks somewhat stooped over with left hip pain Neurologic: alert, oriented x3, normal gait, grossly normal Psychiatric: mood/affect normal Skin: no rash Medical Decision Making Diagnostic Impression: Primary Impression: Hypothyroid Qualified Codes: E03.9 - Hypothyroidism, unspecified Additional Impressions: Osteoarthritis Qualified Codes: M16.12 - Unilateral primary osteoarthritis, left hip Dyspnea Qualified Codes: R06.00 - Dyspnea, unspecified ER Course Patient presents with dyspnea. Differential includes acute myocardial infarction, congestive heart failure, pneumonia, pulmonary embolus, bronchitis amongst others. Based on physical exam pulmonary embolus is less likely. She states that her diuretic worked for her. She denies any pain at this time. Evaluation will be with EKG, chest x-ray and labs. She declines taking any water pill at this time. Because the patient is suggesting possible hypothyroidism, this will be checked. (In addition to that she has left hip pain. Based on her exam this appears to be osteal arthritis although it coulg also be gout. This was discussed with the patient and she was advised to have labs performed and x-rays with her private doctor. The patient states she's been taking Aleve. I requested that she tried taking Tylenol for this pain as will be safer with her other medications.) EKG without injury. Chest x-ray no evidence of congestive heart failure at this time. Labs remarkable for a slightly elevated BNP, normal white count and elevated TSH. T4 and T3 are low normal. The patient again declined been treated with a diuretic. She was given a levothyroxin here. The patient was improved as observation. There is no evidence of any congestive heart failure at this time or a cardiac injury. The patient is stable for outpatient observation and treatment. Last Vital Signs Date Time Temp Pulse Resp B/P (MAP) Pulse Ox O2 Delivery O2 Flow Rate FiO2 02/28/18 00:37 97.6 67 17 140/84 100 Room Air EKG Diagnostic Results Rate: normal Rhythm: NSR ST Segments: no acute changes Rhythm Strip Diag. Results EP Interpretation: yes Rhythm: NSR, no PVC's, no ectopy Chest X-Ray Diagnostic Results Chest X-Ray Diagnostic Results : Chest X-Ray Ordered: Yes # of Views/Limited/Complete: 1 View Indication: Other EP Interpretation: Yes Interpretation: no consolidation, no effusion, no pneumothorax Impression: No acute disease Electronically Signed by: Electronically signed by Ricardo Coker MD Last Vital Signs Date Time Temp Pulse Resp B/P (MAP) Pulse Ox O2 Delivery O2 Flow Rate FiO2 11/10/18 00:37 97.6 67 17 140/84 100 Room Air Status: improved Disposition: HOME, SELF-CARE Condition: Improved Scripts Acetaminophen (Tylenol) 325 Mg Tablet 650 MG ORAL Q6H PRN for Prn Pain/Headache/Temp > 101, #30 TAB 0 Refills Prov: Ricardo Coker MD 02/28/18 Levothyroxine Sodium* (SYNTHROID*) 25 Mcg Tablet 25 MCG ORAL DAILY, #20 TAB Take in the morning on an empty stomach, at least 30 minutes before food. Prov: Ricardo Coker MD 02/28/18 Ricardo Coker MD Feb 27, 2018 20:54
--- NOTE | 2018-02-27 21:35 | Diagnostic Imaging Report ---
EXAM: XR Chest, 1 View CLINICAL HISTORY: DYSPNEA TECHNIQUE: Frontal view of the chest. COMPARISON: 11/18/2017 FINDINGS: Lungs: Unremarkable. No consolidation. Pleural space: Unremarkable. No pneumothorax. Heart: Stable cardiomediastinal silhouette. Mediastinum: See above. Bones/joints: No acute osseous abnormality. IMPRESSION: No acute cardiopulmonary process.
[2018-02-27 22:06] LABS: APPEARANCE,URINE CLEAR; BILIRUBIN, URINE NEGATIVE (NEGATIVE); GLUCOSE, URINE (UA) NEGATIVE (NEGATIVE); KETONES,URINE NEGATIVE (NEGATIVE); LEUKOCYTE ESTERASE ,URINE NEGATIVE (NEGATIVE); NITRITE,URINE NEGATIVE (NEGATIVE); PH,URINE 5 (4.5-8.0); PROTEIN,URINE NEGATIVE (NEGATIVE); UROBILINOGEN,URINE NORMAL MG/DL (0.0-1.0)
[2018-02-27 22:07] LABS: COLOR,URINE YELLOW
[2018-02-27 22:08] LABS: BASOPHILS % (AUTO) 0.7 % (0.0-2.0); HEMATOCRIT 36.2 % (37.0-47.0); HEMOGLOBIN 12.3 G/DL (12.0-16.0); LYMPHOCYTES % (AUTO) 26.3 % (20.0-45.0); MEAN CORPUSCULAR VOLUME 93 FL (80-99); MONOCYTES % (AUTO) 5.4 % (1.0-10.0); NEUTROPHILS % (AUTO) 65.6 % (45.0-75.0); PLATELET COUNT 205 K/UL (150-450); RED BLOOD COUNT 3.88 M/UL (4.20-5.40); RED CELL DISTRIBUTION WIDTH 12.5 % (11.6-14.8); WHITE BLOOD COUNT 10.4 K/UL (4.8-10.8)
[2018-02-27 22:18] LABS: ANION GAP 9 mmol/L (5-15); BLOOD UREA NITROGEN 22 mg/dL (7-18); CALCIUM 9.1 MG/DL (8.5-10.1); CARBON DIOXIDE 25 MMOL/L (21-32); CHLORIDE 105 MMOL/L (98-107); CREATININE 1.3 MG/DL (0.55-1.30); SODIUM 139 MMOL/L (136-145)
[2018-02-27 22:28] LABS: ALANINE AMINOTRANSFERASE 27 U/L (12-78); ALBUMIN 3.2 G/DL (3.4-5.0); ALBUMIN/GLOBULIN RATIO 0.5 (1.0-2.7); ALKALINE PHOSPHATASE 122 U/L (46-116); ASPARTATE AMINO TRANSFERASE 21 U/L (15-37); BILIRUBIN,TOTAL 0.3 MG/DL (0.2-1.0); CREATINE KINASE 148 U/L (26-308)
[2018-02-27 23:45] VITALS: BP 140/84
[2018-02-28 00:37] VITALS: BP 140/84
== END | disposition home or self-care (01) ==
LOC: EMR 20:56
DX: E03.9 Hypothyroidism, unspecified (principal); M16.11 Unilateral primary osteoarthritis, right hip; I10 Essential (primary) hypertension; J44.9 Chronic obstructive pulmonary disease, unspecified; Z86.73 Personal history of transient ischemic attack (TIA), and cerebral infarction without residual deficits
CPT/HCPCS: 36415; 71045; 80053; 81003; 82550; 83880; 84439; 84443; 84481; 84484; 84550; 85025; 85610; 85730; 93005; 99284

== ENCOUNTER 2018-03-23 11:54 | Inpatient (IN) | payer MEDICARE, MEDICAID ==
[~2018-03-23] VITALS: Ht 165.1 cm; Wt 102.2 kg
[~2018-03-23 11:54] MED LIST changes: -Levothyroxine 25mcg tab ONE; -Levothyroxine 25mcg tab ORAL SCH
[2018-03-23] MEDS ORDERED: FUROSEMIDE20 M1 ORAL (12:09)
[2018-03-23 12:19] VITALS: BP 137/81
[2018-03-23] MEDS ORDERED: Sodium Chloride 500ML 500 ML IV ONE (12:26)
[2018-03-23] MEDS ORDERED: Ipratropium 0.02% Inh Soln 2.5ml UD HHN ONE (12:30)
[2018-03-23] MEDS ORDERED: Albuterol ud Inhalation HHN ONE (12:30)
[2018-03-23 13:00] VITALS: BP 126/80
[2018-03-23 13:37] LABS: ANION GAP 12 mmol/L (5-15); BLOOD UREA NITROGEN < 1 mg/dL (7-18); CALCIUM 8.8 MG/DL (8.5-10.1); CARBON DIOXIDE 20 MMOL/L (21-32); CHLORIDE 104 MMOL/L (98-107); CREATININE 1.5 MG/DL (0.55-1.30); POTASSIUM 4.1 MMOL/L (3.5-5.1); SODIUM 136 MMOL/L (136-145)
[2018-03-23 13:50] LABS: ALANINE AMINOTRANSFERASE 15 U/L (12-78); ALBUMIN/GLOBULIN RATIO 0.5 (1.0-2.7); ALKALINE PHOSPHATASE 115 U/L (46-116); ASPARTATE AMINO TRANSFERASE 23 U/L (15-37); BILIRUBIN,TOTAL 0.4 MG/DL (0.2-1.0); CKMB 1.6 NG/ML (0.0-3.6); CREATINE KINASE 170 U/L (26-308)
[2018-03-23 13:50] LABS: COLOR,URINE PALE YELLOW
[2018-03-23 13:51] LABS: APPEARANCE,URINE CLEAR
[2018-03-23 13:52] LABS: PH,URINE 5 (4.5-8.0); PROTEIN,URINE NEGATIVE (NEGATIVE)
[2018-03-23 13:53] LABS: BILIRUBIN, URINE NEGATIVE (NEGATIVE); GLUCOSE, URINE (UA) NEGATIVE (NEGATIVE); KETONES,URINE NEGATIVE (NEGATIVE)
[2018-03-23 13:54] LABS: LEUKOCYTE ESTERASE ,URINE NEGATIVE (NEGATIVE); NITRITE,URINE NEGATIVE (NEGATIVE); UROBILINOGEN,URINE NORMAL MG/DL (0.0-1.0)
[2018-03-23 14:00] VITALS: BP 138/83
[2018-03-23 14:09] LABS: BASOPHILS % (AUTO) 0.6 % (0.0-2.0); EOSINOPHILS % (AUTO) 2.1 % (0.0-3.0); HEMATOCRIT 36.1 % (37.0-47.0); HEMOGLOBIN 12.4 G/DL (12.0-16.0); LYMPHOCYTES % (AUTO) 22.8 % (20.0-45.0); MEAN CORPUSCULAR VOLUME 92 FL (80-99); MONOCYTES % (AUTO) 6.6 % (1.0-10.0); PLATELET COUNT 243 K/UL (150-450); RED BLOOD COUNT 3.93 M/UL (4.20-5.40); RED CELL DISTRIBUTION WIDTH 11.7 % (11.6-14.8); WHITE BLOOD COUNT 11.8 K/UL (4.8-10.8)
--- NOTE | 2018-03-23 14:19 | Diagnostic Imaging Report ---
Indication: Shortness of breath Technique: One view of the chest Comparison: 02/27/2018 Findings: The heart is enlarged. The lungs and pleural spaces are clear. No significant interim change Impression: Cardiomegaly. No acute process
[2018-03-23] MEDS ORDERED: Promethazine/Codeine 5ml UD ORAL PRN (14:45)
[2018-03-23] MEDS ORDERED: Nitroglycerin Subl 0.4mg tab SL PRN (14:45)
[2018-03-23] MEDS ORDERED: LORazepam Inj 2mg/ml 1ml IV PRN (14:45)
[2018-03-23] MEDS ORDERED: Albuterol/Ipratropium 3ml neb HHN PRN (14:45)
[2018-03-23] MEDS ORDERED: Morphine Sulfate 2mg/ml Inj IVP PRN (14:45)
--- NOTE | 2018-03-23 14:46 | Emergency Room Report ---
History of Present Illness General Chief Complaint: Upper Respiratory Illness Source: Patient Present Illness HPI 67-year-old female presents ED for evaluation. Coming in with shortness of breath and cough times one week. Cough is productive with yellowish phlegm. Denies fevers or chills. Denies chest pain. Denies sick contacts or recent travel. No other aggravating relieving factors. Denies any other associated symptoms Allergies: Coded Allergies: No Known Allergies (Verified , 05/05/16) Patient History Past Medical History: HTN, CHF, COPD Past Surgical History: none Pertinent Family History: none Social History: Denies: smoking, alcohol use, drug use Now: No Immunizations: UTD Reviewed Nursing Documentation: PMH: Agreed; PSxH: Agreed Nursing Documentation-PMH Past Medical History: No History, Except For Hx Cardiac Problems: Yes Hx Hypertension: Yes Hx Pacemaker: No Hx COPD: Yes Hx Diabetes: No Hx Cancer: No Hx Gastrointestinal Problems: No Hx Neurological Problems: No Hx Cerebrovascular Accident: Yes Hx Neurologic Surgery: No Review of Systems All Other Systems: negative except mentioned in HPI Physical Exam Vital Signs Date Time Temp Pulse Resp B/P (MAP) Pulse Ox O2 Delivery O2 Flow Rate FiO2 03/23/18 12:00 97.9 81 22 142/88 96 Room Air 03/23/18 12:37 21 Sp02 EP Interpretation: reviewed, normal General Appearance: no apparent distress, alert, GCS 15, non-toxic Head: normocephalic, atraumatic Eyes: bilateral eye normal inspection, bilateral eye PERRL ENT: hearing grossly normal, normal pharynx, no angioedema, normal voice Neck: full range of motion, supple/symm/no masses Respiratory: chest non-tender, normal breath sounds, crackles, speaking full sentences, wheezing Cardiovascular #1: regular rate, rhythm, no edema Cardiovascular #2: 2+ carotid (R), 2+ carotid (L), 2+ radial (R), 2+ radial (L) , 2+ dorsalis pedis (R), 2+ dorsalis pedis (L) Gastrointestinal: normal bowel sounds, non tender, soft, non-distended, no guarding, no rebound Rectal: deferred Genitourinary: normal inspection, no CVA tenderness Musculoskeletal: back normal, gait/station normal, normal range of motion, non- tender Neurologic: alert, oriented x3, responsive, motor strength/tone normal, sensory intact, speech normal Psychiatric: judgement/insight normal, memory normal, mood/affect normal, no suicidal/homicidal ideation Reflexes: 3+ bicep (R), 3+ bicep (L), 3+ tricep (R), 3+ tricep (L), 3+ knee (R) , 3+ knee (L) Skin: normal color, no rash, warm/dry, well hydrated Lymphatic: no adenopathy Medical Decision Making Diagnostic Impression: Primary Impression: COPD (chronic obstructive pulmonary disease) Qualified Codes: J44.9 - Chronic obstructive pulmonary disease, unspecified Additional Impressions: CHF exacerbation Qualified Codes: I50.9 - Heart failure, unspecified Renal insufficiency ER Course Hospital Course 67-year-old female presents ED complaining of shortness of breath, cough Differential diagnoses include: IA/unstable angina, contusion, muscle strain, PTX, rib fracture Clinical course Patient placed on stretcher. on surveillance monitor. After initial history and physical I ordered labs, EKG, chest x-ray, nebs labs reviewed- noted leukocytosis, hemoglobin/hematocrit stable, creatinine elevated, troponins negative, BNP greater than 2000 EKG - NSR, no acute ischemic changes interpreted by me Chest x-ray- cardiomegaly/CHF Antibiotics given. Lasix given. Case discussed with Dr. Sandhu and he agreed to accept the patient to his service for further care and support I. I feel this is a highly complex case requiring extensive working including EKG/Rhythm strip, Xray/CT/US, Blood/urine lab work, repeat exams while in ED, and administration of strong opiates/narcotics for pain control, admission to hospital or close patient follow up. Diagnosis - CHF exacerbation, renal insufficiency, COPD admitted to telemetry in serious condition Labs Test 03/23/18 12:26 03/23/18 13:00 03/23/18 13:43 Sodium Level 136 MMOL/L (136-145) Potassium Level 4.1 MMOL/L (3.5-5.1) Chloride Level 104 MMOL/L (98-107) Carbon Dioxide Level 20 MMOL/L (21-32) Anion Gap 12 mmol/L (5-15) Blood Urea Nitrogen < 1 mg/dL (7-18) Creatinine 1.5 MG/DL (0.55-1.30) Estimat Glomerular Filtration Rate 42.3 mL/min (>60) Glucose Level 105 MG/DL (74-106) Calcium Level 8.8 MG/DL (8.5-10.1) Total Bilirubin 0.4 MG/DL (0.2-1.0) Aspartate Amino Transf (AST/SGOT) 23 U/L (15-37) Alanine Aminotransferase (ALT/SGPT) 15 U/L (12-78) Alkaline Phosphatase 115 U/L (46-116) Total Creatine Kinase 170 U/L (26-308) Creatine Kinase MB 1.6 NG/ML (0.0-3.6) Creatine Kinase MB Relative Index 0.9 Pro-B-Type Natriuretic Peptide 2021 pg/mL (0-125) Total Protein 9.1 G/DL (6.4-8.2) Albumin 3.0 G/DL (3.4-5.0) Globulin 6.1 g/dL Albumin/Globulin Ratio 0.5 (1.0-2.7) Urine Color Pale yellow Urine Appearance Clear Urine pH 5 (4.5-8.0) Urine Specific [place] 1.010 (1.005-1.035) Urine Protein Negative (NEGATIVE) Urine Glucose (UA) Negative (NEGATIVE) Urine Ketones Negative (NEGATIVE) Urine Blood Negative (NEGATIVE) Urine Nitrite Negative (NEGATIVE) Urine Bilirubin Negative (NEGATIVE) Urine Urobilinogen Normal MG/DL (0.0-1.0) Urine Leukocyte Esterase Negative (NEGATIVE) Lactic Acid Level 1.80 mmol/L (0.4-2.0) Troponin I 0.021 ng/mL (0.000-0.056) White Blood Count 11.8 K/UL (4.8-10.8) Red Blood Count 3.93 M/UL (4.20-5.40) Hemoglobin 12.4 G/DL (12.0-16.0) Hematocrit 36.1 % (37.0-47.0) Mean Corpuscular Volume 92 FL (80-99) Mean Corpuscular Hemoglobin 31.7 PG (27.0-31.0) Mean Corpuscular Hemoglobin Concent 34.4 G/DL (32.0-36.0) Red Cell Distribution Width 11.7 % (11.6-14.8) Platelet Count 243 K/UL (150-450) Mean Platelet Volume 6.6 FL (6.5-10.1) Neutrophils (%) (Auto) 68.0 % (45.0-75.0) Lymphocytes (%) (Auto) 22.8 % (20.0-45.0) Monocytes (%) (Auto) 6.6 % (1.0-10.0) Eosinophils (%) (Auto) 2.1 % (0.0-3.0) Basophils (%) (Auto) 0.6 % (0.0-2.0) EKG Diagnostic Results Rate: normal Rhythm: NSR ST Segments: no acute changes ASA given to the pt in ED: No Rhythm Strip Diag. Results EP Interpretation: yes Rhythm: NSR, no PVC's, no ectopy Chest X-Ray Diagnostic Results Chest X-Ray Diagnostic Results : Chest X-Ray Ordered: Yes # of Views/Limited/Complete: 1 View Indication: Shortness of Breath EP Interpretation: Yes Interpretation: no consolidation, no effusion, no pneumothorax, other - cardiomegaly Impression: Other Electronically Signed by: Electronically signed by Flavio Nugent MD Last Vital Signs Date Time Temp Pulse Resp B/P (MAP) Pulse Ox O2 Delivery O2 Flow Rate FiO2 03/23/18 12:47 76 20 100 Room Air 21 03/23/18 12:19 97.9 137/81 Status: improved Disposition: ADMITTED INPATIENT Condition: Serious Referrals: Charly Sandhu MD (PCP) Flavio Nugent MD Mar 23, 2018 14:46
--- NOTE | 2018-03-23 15:15 | Consultation ---
History of Present Illness General Date patient seen: Mar 24, 2018 Chief Complaint: Upper Respiratory Illness Present Illness HPI 67-year-old female, former smoker with a history of COPD, CHF, EF of 30%, hypertension, prior CVA, and TIA presenting with two to three days of shortness of breath, lower extremity orthopnea, and a mild nonproductive cough. She denies any fevers, chills, chest pain, headaches, dizziness, nausea, vomiting, hemoptysis, weight loss, diarrhea, constipation, or other complaints. Her CXR only showed cardiomegaly without CHF. She received a dose of IV lasix and admitted to telemetry for further management. Allergies: Coded Allergies: No Known Allergies (Verified , 05/05/16) Medication History Scheduled Aspirin Ec* (Aspirin Ec*), 81 MG ORAL DAILY Atorvastatin Calcium* (Lipitor*), 20 MG ORAL BEDTIME Carvedilol* (Carvedilol*), 6.25 MG ORAL EVERY 12 HOURS, (Reported) Cetirizine Hcl* (Zyrtec*), 10 MG ORAL DAILY, (Reported) Clopidogrel* (Clopidogrel*), 75 MG ORAL DAILY, (Reported) Furosemide* (Lasix*), 40 MG ORAL DAILY, (Reported) Furosemide* (Lasix*), 20 MG ORAL DAILY, (Reported) Levothyroxine Sodium* (Synthroid*), 25 MCG ORAL DAILY Spironolactone (Aldactone), 25 MG ORAL DAILY Tobramycin/Dexamethasone (Tobradex Eye Drops), 5 ML OP TWICE A DAY Valsartan (Diovan), 80 MG ORAL DAILY, (Reported) Vitamin D (Vitamin D3), 400 UNITS ORAL DAILY, (Reported) Scheduled PRN Acetaminophen (Tylenol), 650 MG ORAL Q6H PRN for Prn Pain/Headache/Temp > 101 Hydrocodone Bit/Acetaminophen 5-325* (Adrian 5-325*), 1 TAB ORAL BID PRN for For Pain, (Reported) Miscellaneous Medications Clobetasol Propionate (Clobetasol Propionate), 0.5 GM MC, (Reported) Patient History Healthcare decision maker Resuscitation status Advanced Directive on File Past Medical/Surgical History Past Medical/Surgical History: (1) COPD (chronic obstructive pulmonary disease) (2) History of CVA (cerebrovascular accident) (3) CAD (coronary artery disease) (4) Subclinical hypothyroidism Review of Systems All Other Systems: negative except mentioned in HPI Physical Exam General Appearance: WD/WN Lines, tubes and drains: peripheral, central line HEENT: normocephalic, atraumatic Neck: non-tender, normal alignment Respiratory/Chest: chest wall non-tender, normal breath sounds Breasts: no masses Cardiovascular/Chest: normal peripheral pulses Abdomen: non tender Genitourinary/Rectal: normal genital exam, normal rectal exam Extremities: normal range of motion Skin Exam: normal pigmentation Last 24 Hour Vital Signs Date Time Temp Pulse Resp B/P (MAP) Pulse Ox O2 Delivery O2 Flow Rate FiO2 03/23/18 12:47 76 20 100 Room Air 21 03/23/18 12:37 21 03/23/18 12:37 78 24 95 Room Air 21 03/23/18 12:24 76 14 Room Air 03/23/18 12:19 97.9 76 14 137/81 99 Room Air 03/23/18 12:00 97.9 81 22 142/88 96 Room Air Laboratory Tests Test 03/23/18 12:26 03/23/18 13:00 03/23/18 13:43 Sodium Level 136 MMOL/L (136-145) Potassium Level 4.1 MMOL/L (3.5-5.1) Chloride Level 104 MMOL/L (98-107) Carbon Dioxide Level 20 MMOL/L (21-32) L Anion Gap 12 mmol/L (5-15) Blood Urea Nitrogen < 1 mg/dL (7-18) L Creatinine 1.5 MG/DL (0.55-1.30) H Estimat Glomerular Filtration Rate 42.3 mL/min (>60) Glucose Level 105 MG/DL (74-106) Calcium Level 8.8 MG/DL (8.5-10.1) Total Bilirubin 0.4 MG/DL (0.2-1.0) Aspartate Amino Transf (AST/SGOT) 23 U/L (15-37) Alanine Aminotransferase (ALT/SGPT) 15 U/L (12-78) Alkaline Phosphatase 115 U/L (46-116) Total Creatine Kinase 170 U/L (26-308) Creatine Kinase MB 1.6 NG/ML (0.0-3.6) Creatine Kinase MB Relative Index 0.9 Pro-B-Type Natriuretic Peptide 2021 pg/mL (0-125) H Total Protein 9.1 G/DL (6.4-8.2) H Albumin 3.0 G/DL (3.4-5.0) L Globulin 6.1 g/dL Albumin/Globulin Ratio 0.5 (1.0-2.7) L Urine Color Pale yellow Urine Appearance Clear Urine pH 5 (4.5-8.0) Urine Specific [place] 1.010 (1.005-1.035) Urine Protein Negative (NEGATIVE) Urine Glucose (UA) Negative (NEGATIVE) Urine Ketones Negative (NEGATIVE) Urine Blood Negative (NEGATIVE) Urine Nitrite Negative (NEGATIVE) Urine Bilirubin Negative (NEGATIVE) Urine Urobilinogen Normal MG/DL (0.0-1.0) Urine Leukocyte Esterase Negative (NEGATIVE) Lactic Acid Level 1.80 mmol/L (0.4-2.0) Troponin I 0.021 ng/mL (0.000-0.056) White Blood Count 11.8 K/UL (4.8-10.8) H Red Blood Count 3.93 M/UL (4.20-5.40) L Hemoglobin 12.4 G/DL (12.0-16.0) Hematocrit 36.1 % (37.0-47.0) L Mean Corpuscular Volume 92 FL (80-99) Mean Corpuscular Hemoglobin 31.7 PG (27.0-31.0) H Mean Corpuscular Hemoglobin Concent 34.4 G/DL (32.0-36.0) Red Cell Distribution Width 11.7 % (11.6-14.8) Platelet Count 243 K/UL (150-450) Mean Platelet Volume 6.6 FL (6.5-10.1) Neutrophils (%) (Auto) 68.0 % (45.0-75.0) Lymphocytes (%) (Auto) 22.8 % (20.0-45.0) Monocytes (%) (Auto) 6.6 % (1.0-10.0) Eosinophils (%) (Auto) 2.1 % (0.0-3.0) Basophils (%) (Auto) 0.6 % (0.0-2.0) Height (Feet): 5 Height (Inches): 5.00 Weight (Pounds): 220 Medications Current Medications Medications (Trade) Dose Ordered Sig/Marline Route PRN Reason Start Time Stop Time Status Last Admin Dose Admin Albuterol/ Ipratropium (Albuterol/ Ipratropium) 3 ml Q4H PRN HHN dyspnea 03/23/18 14:45 03/28/18 14:44 Carvedilol (Coreg) 6.25 mg EVERY 12 HOURS ORAL 03/23/18 21:00 04/22/18 20:59 UNV Clopidogrel Bisulfate (Plavix) 75 mg DAILY ORAL 03/24/18 09:00 04/23/18 08:59 UNV Dextrose (Dextrose 50%) 25 ml Q30M PRN IV Hypoglycemia 03/23/18 14:45 04/22/18 14:44 Dextrose (Dextrose 50%) 50 ml Q30M PRN IV Hypoglycemia 03/23/18 14:45 04/22/18 14:44 Heparin Sodium (Porcine) (Heparin 5000 units/ml) 5,000 units EVERY 12 HOURS SUBQ 03/23/18 21:00 04/22/18 20:59 UNV Levofloxacin 150 ml @ 100 mls/hr NOW ONCE IVPB 03/23/18 15:00 03/23/18 16:29 03/23/18 14:59 Levothyroxine Sodium (Synthroid) 25 mcg DAILY ORAL 03/24/18 09:00 04/23/18 08:59 UNV Lorazepam (Ativan 2mg/ml 1ml) 0.5 mg Q4H PRN IV For Anxiety 03/23/18 14:45 03/30/18 14:44 Methylprednisolone Sodium Succinate (Solu-MEDROL) 60 mg EVERY 6 HOURS IV 03/23/18 18:00 04/22/18 17:59 UNV Morphine Sulfate (Morphine Sulfate) 2 mg Q4H PRN IVP severe pain 7-10 03/23/18 14:45 03/30/18 14:44 Nitroglycerin (Ntg) 0.4 mg Q5M X 3 DOSES PRN SL Prn Chest Pain 03/23/18 14:45 04/22/18 14:44 Ondansetron HCl (Zofran) 4 mg Q6H PRN IVP Nausea & Vomiting 03/23/18 14:45 04/22/18 14:44 Piperacillin Sod/ Tazobactam Sod 2.25 gm/Dextrose 55 ml @ 110 mls/hr EVERY 8 HOURS IV 03/23/18 22:00 03/28/18 21:59 UNV Promethazine HCl/ Codeine (Phenergan with Codeine) 5 ml Q6H PRN ORAL cough 03/23/18 14:45 04/22/18 14:44 Temazepam (Restoril) 15 mg HSPRN PRN ORAL Insomnia 03/23/18 14:45 03/30/18 14:44 Theophylline (Domenic-Dur) 100 mg EVERY 12 HOURS ORAL 03/23/18 21:00 04/22/18 20:59 UNV Assessment/Plan Problem List: (1) COPD exacerbation ICD Codes: J44.1 - Chronic obstructive pulmonary disease with (acute) exacerbation SNOMED: 936654442 (2) Acute bronchitis ICD Codes: J20.9 - Acute bronchitis,unspecified SNOMED: 38251832 (3) History of CVA (cerebrovascular accident) ICD Codes: Z86.73 - Personal history of transient ischemic attack (TIA), and cerebral infarction without residual deficits SNOMED: 660383725 (4) CAD (coronary artery disease) ICD Codes: I25.10 - Atherosclerotic heart disease of [place] coronary artery without angina pectoris SNOMED: 05450914 Assessment/Plan respiratory treatment titrate fio2 to sat of 92% check sputum titrate cardiac meds short course of steroids dvt prophylaxis Halina Hameed MD Mar 23, 2018 15:15
[2018-03-23 15:50] VITALS: BP 148/78
[2018-03-23 16:00] VITALS: BP 152/89
[2018-03-23] MEDS: Piperacillin/Tazobactam 3.375 GM in D5W 110 ML IVPB SCH (17:43)
[2018-03-23] MEDS: Solu-MEDROL 125mg Inj IV SCH (17:47)
--- NOTE | 2018-03-23 19:03 | History & Physical ---
History and Physical History & Physicial Dictated for int Med-Dr Sandhu no. [id number]. Antonio Anglin MD Mar 23, 2018 19:03
--- NOTE | 2018-03-23 20:15 | History and Physical Report ---
DATE OF ADMISSION: 03/23/2018 NOTE: INCOMPLETE DICTATION CHIEF COMPLAINT: The patient is a 67-year-old female, who presents with a chief complaint of shortness of breath and cough. HISTORY OF PRESENT ILLNESS: The patient was admitted to [facility] in October of 2017. The patient was admitted for congestive heart failure. Please see history and physical and discharge summary dictated at that time. The patient presented to [facility] emergency room complaining of a one-week history of shortness of breath. The patient also has a cough productive of a whitish sputum. The patient denies fevers or chills. The patient does complain of rhinorrhea. The patient was found to have elevated BNP. The patient is admitted for acute exacerbation of congestive heart failure. REVIEW OF SYSTEMS: CONSTITUTIONAL: The patient denies weight loss or weight gain. The patient denies fevers or chills. HEENT: The patient denies ear or throat pain. The patient denies headache. CARDIOVASCULAR: The patient denies palpitations or chest pain. CHEST: The patient complains of cough as above. The patient complains of shortness of breath as above. The patient denies wheezes. ABDOMEN: The patient denies nausea, vomiting, diarrhea, or constipation. GENITOURINARY: The patient denies dysuria or increased frequency or urination. NEUROMUSCULAR: The patient denies seizures. The patient does have a history of right hemiplegia secondary to previous stroke. PAST MEDICAL HISTORY: Significant for, 1. Hypertension. 2. Congestive heart failure. 3. History of cerebrovascular accident in 2008. 4. Right hemiparesis. 5. Hypertension. PAST SURGICAL HISTORY: The patient denies. CURRENT MEDICATIONS: 1. Aspirin 81 mg one tablet p.o. daily. 2. Lipitor 20 mg p.o. daily. 3. Carvedilol 6.25 mg p.o. q.12 hours. 4. Clopidogrel 75 mg p.o. daily. 5. Lasix 40 mg p.o. daily. 6. [place] 5/325 mg one tablet p.o. q.4 hours. 7. Levoxyl 0.025 mg p.o. daily. Antonio Anglin M.D. DR: PADMINI JOB#: [id number] CC:
--- NOTE | 2018-03-23 20:30 | History and Physical Report ---
DATE OF ADMISSION: 03/23/2018 CHIEF COMPLAINT: The patient is a 67-year-old, female, who presents with a chief complaint of shortness of breath for 1 week. HISTORY OF PRESENT ILLNESS: Began one week prior to admission. The patient began to experience shortness of breath and cough. Cough is productive of a whitish sputum. The patient also complains of runny nose. The patient was admitted to [facility] in October of 2017 for acute exacerbation of congestive heart failure. The patient presented to [place] emergency room complaining of shortness of breath and cough as above. The patient was admitted for acute exacerbation of congestive heart failure. REVIEW OF SYSTEMS: CONSTITUTIONAL: The patient denies weight loss or weight gain. The patient denies fevers or chills. HEENT: The patient denies ear or throat pain. The patient denies headache. CARDIOVASCULAR: The patient denies palpitations or chest pain. CHEST: The patient complains of shortness of breath as above. The patient complains of cough as above. The patient denies wheezes. ABDOMEN: The patient denies nausea, vomiting, diarrhea, or constipation. GENITOURINARY: The patient denies dysuria or increased frequency of urination. NEUROMUSCULAR: The patient has a right hemiparesis secondary to stroke previously. The patient denies seizures or generalized weakness. PAST MEDICAL HISTORY: Significant for, 1. Congestive heart failure as above. 2. History of cerebrovascular accident in 2008. 3. Hypertension. 4. Right hemiparesis. 5. Coronary artery disease. PAST SURGICAL HISTORY: The patient denies. CURRENT MEDICATIONS: 1. Aspirin 81 mg one tablet p.o. daily. 2. Atorvastatin 20 mg p.o. at bedtime. 3. Carvedilol 6.25 mg p.o. twice daily. 4. Clopidogrel 75 mg p.o. daily. 5. Lasix 40 mg p.o. daily. 6. [place] 5/325 mg one tablet p.o. q.6 hours p.r.n. 7. Levoxyl 0.025 mg p.o. daily. 8. Spironolactone 25 mg p.o. daily. 9. Valsartan 80 mg p.o. daily. ALLERGIES: No known drug allergies. SOCIAL HISTORY: The patient is single and lives with her adult daughter. The patient denies tobacco use having quit in [place] of 2018. The patient admits to alcohol use occasionally. PHYSICAL EXAMINATION: VITAL SIGNS: Temperature 98.2, respirations 19, pulse 77, blood pressure 138/83, and pulse ox 98% on room air. GENERAL: The patient is a well-developed and well-nourished female, in no apparent distress. HEENT: Eyes, pupils equal responsive to light and accommodation. Extraocular movements are intact. NECK: Supple without lymphadenopathy. CHEST: Lungs are clear to auscultation bilaterally without wheezes or rales. CARDIOVASCULAR: Regular rhythm and rate. S1 and S2 are normal without murmurs, rubs, or gallops. ABDOMEN: Soft, nontender, and nondistended. Positive bowel sounds. No evidence of hepatosplenomegaly. Currently, no rebound or guarding noted. EXTREMITIES: Negative for clubbing, cyanosis, or edema. RECTAL/GENITAL: Refused. NEUROLOGIC: Cranial nerves II through XII are grossly intact without focal deficits. Motor strength is 5/5 bilaterally. Deep tendon reflexes are 2+ plantar. LABORATORY STUDIES: WBC 11.8, hemoglobin 12.4, hematocrit 36.1, and platelets 243,000. Sodium 136, potassium 4.1, chloride 104, CO2 20, BUN less than 1, and creatinine 1.5. Glucose 105. BNP elevated at 2020. Troponin normal at 0.021. Chest x-ray was reported as no acute disease. ASSESSMENT: This is a 67-year-old female. 1. Shortness of breath. 2. Cough. 3. Acute on chronic congestive heart failure. 4. Cerebrovascular disease. 5. Hypertension. 6. Right hemiplegia. 7. Hypothyroidism. 8. Hypercholesterolemia. TREATMENT: 1. Acute exacerbation of congestive heart failure. Cardiology consultation has been obtained with Dr. Luis. The patient will continue on Lasix. This has been changed to intravenous. We will follow recommendations of Cardiology. 2. Cerebrovascular disease. Continue clopidogrel and aspirin as above. 3. Hypertension. Continue Coreg as above. 4. Right hemiplegia. 5. Hypothyroidism. Continue Levoxyl as above. 6. Hypercholesterolemia. Continue Lipitor as above. Antonio Anglin M.D. DR: PADMINI JOB#: [id number] CC:
[2018-03-23] MEDS: Theophylline ER 100mg ORAL SCH (20:44)
[2018-03-23] MEDS: Carvedilol 6.25mg Tab ORAL SCH (20:44)
[2018-03-23] MEDS: Heparin 5000 units/ml inj SUBQ SCH (20:46)
[2018-03-23] MEDS ORDERED: Piperacillin/Tazobactam 2.25 GM in D5W 55 ML IV SCH (22:00)
[2018-03-24] MEDS: Solu-MEDROL 125mg Inj IV SCH ×5 (00:52→23:30)
[2018-03-24] MEDS: Levothyroxine 25mcg tab ORAL SCH (05:50)
[2018-03-24] MEDS: Piperacillin/Tazobactam 3.375 GM in D5W 110 ML IVPB SCH ×3 (05:50→21:38)
[2018-03-24 07:05] LABS: HEMATOCRIT 37.2 % (37.0-47.0); HEMOGLOBIN 12.7 G/DL (12.0-16.0); LACTATE DEHYDROGENASE 185 U/L (81-234); MEAN CORPUSCULAR VOLUME 92 FL (80-99); PHOSPHORUS 3.4 MG/DL (2.5-4.9); PLATELET COUNT 317 K/UL (150-450); RED BLOOD COUNT 4.06 M/UL (4.20-5.40); RED CELL DISTRIBUTION WIDTH 11.7 % (11.6-14.8); WHITE BLOOD COUNT 11.7 K/UL (4.8-10.8)
[2018-03-24 07:09] LABS: INR 0.9 (0.9-1.1)
[2018-03-24 07:12] LABS: ANION GAP 12 mmol/L (5-15); BLOOD UREA NITROGEN 30 mg/dL (7-18); CALCIUM 9.5 MG/DL (8.5-10.1); CARBON DIOXIDE 22 MMOL/L (21-32); CHLORIDE 100 MMOL/L (98-107); CREATININE 1.5 MG/DL (0.55-1.30); SODIUM 134 MMOL/L (136-145)
[2018-03-24 07:36] LABS: % IRON SATURATION 18 % (15-50); IRON 56 ug/dL (50-175); TOTAL IRON BINDING CAPACITY 313 ug/dL (250-450)
[2018-03-24 08:00] VITALS: BP 141/83
[2018-03-24] MEDS: Carvedilol 6.25mg Tab ORAL SCH ×2 (09:12→20:19)
[2018-03-24] MEDS: Theophylline ER 100mg ORAL SCH ×2 (09:12→20:19)
[2018-03-24] MEDS: Heparin 5000 units/ml inj SUBQ SCH ×2 (09:13→20:20)
[2018-03-24 12:00] VITALS: BP 133/89
--- NOTE | 2018-03-24 12:07 | Pulmonology Progress Note ---
Assessment/Plan Problems: (1) COPD exacerbation (2) Acute bronchitis (3) History of CVA (cerebrovascular accident) (4) CAD (coronary artery disease) Assessment/Plan improving check sputum taper steroids titrate fio2 to sat of 92% cardiology evaluation Subjective ROS Limited/Unobtainable: No Constitutional: Reports: no symptoms HEENT: Repors: no symptoms Respiratory: Reports: no symptoms Allergies: Coded Allergies: No Known Allergies (Verified , 05/05/16) Objective Last 24 Hour Vital Signs Date Time Temp Pulse Resp B/P (MAP) Pulse Ox O2 Delivery O2 Flow Rate FiO2 03/24/18 09:12 77 141/83 03/24/18 09:00 Room Air 03/24/18 08:00 98.2 77 18 141/83 (102) 96 77 03/24/18 07:42 74 03/24/18 03:31 83 03/23/18 23:26 79 03/23/18 21:00 Room Air 03/23/18 20:44 80 159/71 03/23/18 19:00 83 03/23/18 16:29 82 03/23/18 16:00 98.2 91 20 152/89 (110) 97 03/23/18 15:56 Room Air 03/23/18 15:54 98.2 77 21 148/78 99 Room Air 21 03/23/18 15:50 98.2 77 21 148/78 99 Room Air 03/23/18 14:00 98.2 77 19 138/83 98 Room Air 03/23/18 13:00 97.9 78 20 126/80 98 Room Air 03/23/18 12:47 76 20 100 Room Air 21 03/23/18 12:37 21 03/23/18 12:37 78 24 95 Room Air 21 03/23/18 12:24 76 14 Room Air 03/23/18 12:19 97.9 76 14 137/81 99 Room Air Intake and Output 03/23/18 03/24/18 19:00 07:00 Intake Total 467.5 ml 87.08 ml Balance 467.5 ml 87.08 ml Intake Oral 240 ml IV Total 227.5 ml 87.08 ml # Voids 1 3 General Appearance: WD/WN HEENT: atraumatic Respiratory/Chest: chest wall non-tender, lungs clear Abdomen: normal bowel sounds, soft, non tender Genitourinary: normal external genitalia Extremities: no cyanosis Neurologic/Psychiatric: supervisor drying and softening II-XII grossly normal Lymphatic: no neck adenopathy, no groin adenopathy Laboratory Tests 03/23/18 12:26: Sodium Level 136, Potassium Level 4.1, Chloride Level 104, Carbon Dioxide Level 20L, Anion Gap 12, Blood Urea Nitrogen < 1L, Creatinine 1.5H, Estimat Glomerular Filtration Rate 42.3, Glucose Level 105, Calcium Level 8.8, Total Bilirubin 0.4, Aspartate Amino Transf (AST/SGOT) 23, Alanine Aminotransferase ( ALT/SGPT) 15, Alkaline Phosphatase 115, Total Creatine Kinase 170, Creatine Kinase MB 1.6, Creatine Kinase MB Relative Index 0.9, Pro-B-Type Natriuretic Peptide 2021H, Total Protein 9.1H, Albumin 3.0L, Globulin 6.1, Albumin/Globulin Ratio 0.5L 03/23/18 13:00: Urine Color Pale yellow, Urine Appearance Clear, Urine pH 5, Urine Specific [place] 1.010, Urine Protein Negative, Urine Glucose (UA) Negative, Urine Ketones Negative, Urine Blood Negative, Urine Nitrite Negative, Urine Bilirubin Negative, Urine Urobilinogen Normal, Urine Leukocyte Esterase Negative, Lactic Acid Level 1.80, Troponin I 0.021 03/23/18 13:43: White Blood Count 11.8H, Red Blood Count 3.93L, Hemoglobin 12.4, Hematocrit 36.1L, Mean Corpuscular Volume 92, Mean Corpuscular Hemoglobin 31.7H, Mean Corpuscular Hemoglobin Concent 34.4, Red Cell Distribution Width 11.7, Platelet Count 243, Mean Platelet Volume 6.6, Neutrophils (%) (Auto) 68.0, Lymphocytes (% ) (Auto) 22.8, Monocytes (%) (Auto) 6.6, Eosinophils (%) (Auto) 2.1, Basophils ( %) (Auto) 0.6 03/24/18 05:25: Sodium Level 134L, Potassium Level 4.0, Chloride Level 100, Carbon Dioxide Level 22, Anion Gap 12, Blood Urea Nitrogen 30H, Creatinine 1.5H, Estimat Glomerular Filtration Rate 42.3, Glucose Level 232#H, Calcium Level 9.5, White Blood Count 11.7H, Red Blood Count 4.06L, Hemoglobin 12.7, Hematocrit 37.2, Mean Corpuscular Volume 92, Mean Corpuscular Hemoglobin 31.1H, Mean Corpuscular Hemoglobin Concent 34.0, Red Cell Distribution Width 11.7, Platelet Count 317, Mean Platelet Volume 6.6, Neutrophils (%) (Auto) , Lymphocytes (%) (Auto) , Monocytes (%) (Auto) , Eosinophils (%) (Auto) , Basophils (%) (Auto) , Neutrophils % (Manual) [Pending], Lymphocytes % (Manual) [Pending], Platelet Estimate [Pending], Platelet Morphology [Pending], Erythrocyte Sedimentation Rate 82H, Reticulocyte Count 1.8, Prothrombin Time 10.0, Prothromb Time International Ratio 0.9, Activated Partial Thromboplast Time 29, Phosphorus Level 3.4, Magnesium Level 1.7L, Iron Level 56, Total Iron Binding Capacity 313 , Percent Iron Saturation 18, Unsaturated Iron Binding 257, Lactate Dehydrogenase 185, C-Reactive Protein, Quantitative 2.0H, Carcinoembryonic Antigen [Pending], Vitamin B12 Level 485, Folate 13.8 Current Medications Medications (Trade) Dose Ordered Sig/Marline Route PRN Reason Start Time Stop Time Status Last Admin Dose Admin Albuterol/ Ipratropium (Albuterol/ Ipratropium) 3 ml Q4H PRN HHN dyspnea 03/23/18 14:45 03/28/18 14:44 Carvedilol (Coreg) 6.25 mg EVERY 12 HOURS ORAL 03/23/18 21:00 04/22/18 20:59 03/24/18 09:12 Clopidogrel Bisulfate (Plavix) 75 mg DAILY ORAL 03/24/18 09:00 04/23/18 08:59 03/24/18 09:12 Dextrose (Dextrose 50%) 25 ml Q30M PRN IV Hypoglycemia 03/23/18 14:45 04/22/18 14:44 Dextrose (Dextrose 50%) 50 ml Q30M PRN IV Hypoglycemia 03/23/18 14:45 04/22/18 14:44 Heparin Sodium (Porcine) (Heparin 5000 units/ml) 5,000 units EVERY 12 HOURS SUBQ 03/23/18 21:00 04/22/18 20:59 03/24/18 09:13 Levothyroxine Sodium (Synthroid) 25 mcg ACBREAKFAST ORAL 03/24/18 06:30 04/23/18 06:29 03/24/18 05:50 Lorazepam (Ativan 2mg/ml 1ml) 0.5 mg Q4H PRN IV For Anxiety 03/23/18 14:45 03/30/18 14:44 Methylprednisolone Sodium Succinate (Solu-MEDROL) 60 mg EVERY 6 HOURS IV 03/23/18 18:00 04/22/18 17:59 03/24/18 05:51 Morphine Sulfate (Morphine Sulfate) 2 mg Q4H PRN IVP severe pain 7-10 03/23/18 14:45 03/30/18 14:44 Nitroglycerin (Ntg) 0.4 mg Q5M X 3 DOSES PRN SL Prn Chest Pain 03/23/18 14:45 04/22/18 14:44 Ondansetron HCl (Zofran) 4 mg Q6H PRN IVP Nausea & Vomiting 03/23/18 14:45 04/22/18 14:44 Piperacillin Sod/ Tazobactam Sod 3.375 gm/Dextrose 110 ml @ 27.5 mls/hr EVERY 8 HOURS IVPB 03/23/18 17:00 03/28/18 16:59 03/24/18 05:50 Promethazine HCl/ Codeine (Phenergan with Codeine) 5 ml Q6H PRN ORAL cough 03/23/18 14:45 04/22/18 14:44 Temazepam (Restoril) 15 mg HSPRN PRN ORAL Insomnia 03/23/18 14:45 03/30/18 14:44 Theophylline (Domenic-Dur) 100 mg EVERY 12 HOURS ORAL 03/23/18 21:00 04/22/18 20:59 03/24/18 09:12 Halina Hameed MD Mar 24, 2018 12:07
[2018-03-24 16:00] VITALS: BP 146/93
--- NOTE | 2018-03-24 16:47 | Internal Med Progress Note ---
Subjective Date of Service: Mar 24, 2018 Physician Name Antonio Anglin Attending Physician Charly Sandhu MD Current Medications Medications (Trade) Dose Ordered Sig/Marline Route PRN Reason Start Time Stop Time Status Last Admin Dose Admin Albuterol/ Ipratropium (Albuterol/ Ipratropium) 3 ml Q4H PRN HHN dyspnea 03/23/18 14:45 03/28/18 14:44 Carvedilol (Coreg) 6.25 mg EVERY 12 HOURS ORAL 03/23/18 21:00 04/22/18 20:59 03/24/18 09:12 Clopidogrel Bisulfate (Plavix) 75 mg DAILY ORAL 03/24/18 09:00 04/23/18 08:59 03/24/18 09:12 Dextrose (Dextrose 50%) 25 ml Q30M PRN IV Hypoglycemia 03/23/18 14:45 04/22/18 14:44 Dextrose (Dextrose 50%) 50 ml Q30M PRN IV Hypoglycemia 03/23/18 14:45 04/22/18 14:44 Heparin Sodium (Porcine) (Heparin 5000 units/ml) 5,000 units EVERY 12 HOURS SUBQ 03/23/18 21:00 04/22/18 20:59 03/24/18 09:13 Levothyroxine Sodium (Synthroid) 25 mcg ACBREAKFAST ORAL 03/24/18 06:30 04/23/18 06:29 03/24/18 05:50 Lorazepam (Ativan 2mg/ml 1ml) 0.5 mg Q4H PRN IV For Anxiety 03/23/18 14:45 03/30/18 14:44 Methylprednisolone Sodium Succinate (Solu-MEDROL) 60 mg EVERY 6 HOURS IV 03/23/18 18:00 04/22/18 17:59 03/24/18 12:34 Morphine Sulfate (Morphine Sulfate) 2 mg Q4H PRN IVP severe pain 7-10 03/23/18 14:45 03/30/18 14:44 Nitroglycerin (Ntg) 0.4 mg Q5M X 3 DOSES PRN SL Prn Chest Pain 03/23/18 14:45 04/22/18 14:44 Ondansetron HCl (Zofran) 4 mg Q6H PRN IVP Nausea & Vomiting 03/23/18 14:45 04/22/18 14:44 Piperacillin Sod/ Tazobactam Sod 3.375 gm/Dextrose 110 ml @ 27.5 mls/hr EVERY 8 HOURS IVPB 03/23/18 17:00 03/28/18 16:59 03/24/18 14:18 Promethazine HCl/ Codeine (Phenergan with Codeine) 5 ml Q6H PRN ORAL cough 03/23/18 14:45 04/22/18 14:44 Temazepam (Restoril) 15 mg HSPRN PRN ORAL Insomnia 03/23/18 14:45 03/30/18 14:44 Theophylline (Domenic-Dur) 100 mg EVERY 12 HOURS ORAL 03/23/18 21:00 04/22/18 20:59 03/24/18 09:12 Allergies: Coded Allergies: No Known Allergies (Verified , 05/05/16) ROS Limited/Unobtainable: No Constitutional: Reports: no symptoms HEENT: Reports: no symptoms Cardiovascular: Reports: no symptoms Respiratory: Reports: shortness of breath Gastrointestinal/Abdominal: Reports: no symptoms Genitourinary: Reports: no symptoms Neurologic/Psychiatric: Reports: no symptoms Subjective 67 YO F admitted with dyspnea. Now COPD exacerbation and CHF. Cover for Int Med-Dr Sandhu. Await cardiology consult. Objective Last Vital Signs Date Time Temp Pulse Resp B/P (MAP) Pulse Ox O2 Delivery O2 Flow Rate FiO2 03/24/18 12:00 98.3 74 18 133/89 (104) 95 74 03/24/18 09:00 Room Air 03/23/18 15:54 21 General Appearance: WD/WN, no apparent distress, alert EENT: PERRL/EOMI, normal ENT inspection Neck: non-tender, normal alignment, supple, normal inspection Cardiovascular: normal peripheral pulses, normal rate, regular rhythm, no gallop/murmur, no JVD Respiratory/Chest: chest wall non-tender, lungs clear, normal breath sounds, no respiratory distress, no accessory muscle use Abdomen: normal bowel sounds, non tender, soft, no organomegaly, no mass Extremities: normal range of motion, non-tender Neurologic: heat treat supervisor II-XII grossly normal, no motor/sensory deficits Skin: normal pigmentation, warm/dry Laboratory Tests Test 03/24/18 05:25 White Blood Count 11.7 K/UL (4.8-10.8) H Red Blood Count 4.06 M/UL (4.20-5.40) L Hemoglobin 12.7 G/DL (12.0-16.0) Hematocrit 37.2 % (37.0-47.0) Mean Corpuscular Volume 92 FL (80-99) Mean Corpuscular Hemoglobin 31.1 PG (27.0-31.0) H Mean Corpuscular Hemoglobin Concent 34.0 G/DL (32.0-36.0) Red Cell Distribution Width 11.7 % (11.6-14.8) Platelet Count 317 K/UL (150-450) Mean Platelet Volume 6.6 FL (6.5-10.1) Neutrophils (%) (Auto) % (45.0-75.0) Lymphocytes (%) (Auto) % (20.0-45.0) Monocytes (%) (Auto) % (1.0-10.0) Eosinophils (%) (Auto) % (0.0-3.0) Basophils (%) (Auto) % (0.0-2.0) Differential Total Cells Counted 100 Neutrophils % (Manual) 88 % (45-75) H Lymphocytes % (Manual) 8 % (20-45) L Monocytes % (Manual) 1 % (1-10) Eosinophils % (Manual) 0 % (0-3) Basophils % (Manual) 0 % (0-2) Band Neutrophils 3 % (0-8) Platelet Estimate Adequate Platelet Morphology Normal Red Blood Cell Morphology Normal Erythrocyte Sedimentation Rate 82 MM/HR (0-30) H Reticulocyte Count 1.8 % (0.0-2.0) Prothrombin Time 10.0 SEC (9.30-11.50) Prothromb Time International Ratio 0.9 (0.9-1.1) Activated Partial Thromboplast Time 29 SEC (23-33) Sodium Level 134 MMOL/L (136-145) L Potassium Level 4.0 MMOL/L (3.5-5.1) Chloride Level 100 MMOL/L (98-107) Carbon Dioxide Level 22 MMOL/L (21-32) Anion Gap 12 mmol/L (5-15) Blood Urea Nitrogen 30 mg/dL (7-18) H Creatinine 1.5 MG/DL (0.55-1.30) H Estimat Glomerular Filtration Rate 42.3 mL/min (>60) Glucose Level 232 MG/DL (74-106) #H Calcium Level 9.5 MG/DL (8.5-10.1) Phosphorus Level 3.4 MG/DL (2.5-4.9) Magnesium Level 1.7 MG/DL (1.8-2.4) L Iron Level 56 ug/dL (50-175) Total Iron Binding Capacity 313 ug/dL (250-450) Percent Iron Saturation 18 % (15-50) Unsaturated Iron Binding 257 ug/dL (112-346) Lactate Dehydrogenase 185 U/L (81-234) C-Reactive Protein, Quantitative 2.0 mg/dL (0.00-0.90) H Carcinoembryonic Antigen Pending Vitamin B12 Level 485 PG/ML (193-986) Folate 13.8 NG/ML (8.6-58.9) Intake and Output 03/23/18 03/24/18 19:00 07:00 Intake Total 467.5 ml 87.08 ml Balance 467.5 ml 87.08 ml Intake Oral 240 ml IV Total 227.5 ml 87.08 ml # Voids 1 3 Assessment/Plan Problem List: (1) HTN (hypertension) Assessment & Plan: Continue coreg (2) Hemiparesis affecting right side as late effect of cerebrovascular accident (CVA) (3) Hypothyroidism Assessment & Plan: Continue levoxyl (4) Hypercholesteremia (5) CHF exacerbation Assessment & Plan: Continue coreg. await cardiology consult and echocardiogram (6) CAD (coronary artery disease) (7) COPD exacerbation Assessment & Plan: Continue IV solumedrol and theodur-see pulmonary note. Antonio Anglin MD Mar 24, 2018 16:47
--- NOTE | 2018-03-24 16:52 | Consultation ---
History of Present Illness General Date patient seen: Mar 23, 2018 Chief Complaint: Upper Respiratory Illness Present Illness HPI 67-year-old, female, who presents with a chief complaint of shortness of breath for 1 week. the pt has anxiety and low energy. the pt didn' t endorse depressive or psychotic sxs. Allergies: Coded Allergies: No Known Allergies (Verified , 05/05/16) Medication History Scheduled Aspirin Ec* (Aspirin Ec*), 81 MG ORAL DAILY Atorvastatin Calcium* (Lipitor*), 20 MG ORAL BEDTIME Carvedilol* (Carvedilol*), 6.25 MG ORAL EVERY 12 HOURS, (Reported) Cetirizine Hcl* (Zyrtec*), 10 MG ORAL DAILY, (Reported) Clopidogrel* (Clopidogrel*), 75 MG ORAL DAILY, (Reported) Furosemide* (Lasix*), 40 MG ORAL DAILY, (Reported) Furosemide* (Lasix*), 20 MG ORAL DAILY, (Reported) Levothyroxine Sodium* (Synthroid*), 25 MCG ORAL DAILY Spironolactone (Aldactone), 25 MG ORAL DAILY Tobramycin/Dexamethasone (Tobradex Eye Drops), 5 ML OP TWICE A DAY Valsartan (Diovan), 80 MG ORAL DAILY, (Reported) Vitamin D (Vitamin D3), 400 UNITS ORAL DAILY, (Reported) Scheduled PRN Acetaminophen (Tylenol), 650 MG ORAL Q6H PRN for Prn Pain/Headache/Temp > 101 Hydrocodone Bit/Acetaminophen 5-325* ([place] 5-325*), 1 TAB ORAL BID PRN for For Pain, (Reported) Miscellaneous Medications Clobetasol Propionate (Clobetasol Propionate), 0.5 GM MC, (Reported) Patient History Limited by: medical condition History Provided By: Patient, Medical Record, PMD Healthcare decision maker Resuscitation status Full Code Advanced Directive on File Past Medical/Surgical History Past Medical/Surgical History: (1) Hypercholesteremia (2) Hypothyroidism (3) HTN (hypertension) (4) Hemiparesis affecting right side as late effect of cerebrovascular accident (CVA) (5) ACS (acute coronary syndrome) (6) Sinusitis, acute (7) Atrophic vaginitis (8) UTI (urinary tract infection) (9) Shingles (10) Acute bronchitis (11) Iritis of left eye (12) Subclinical hypothyroidism (13) Goiter (14) COPD exacerbation (15) CAD (coronary artery disease) (16) History of CVA (cerebrovascular accident) (17) Abdominal pain (18) Left otitis media (19) COPD (chronic obstructive pulmonary disease) (20) CHF exacerbation Review of Systems Psychiatric: Reports: anxiety, depressed feelings, emotional problems Physical Exam General Appearance: no apparent distress, alert Neurologic: oriented x 3, responsive, depressed affect Last 24 Hour Vital Signs Date Time Temp Pulse Resp B/P (MAP) Pulse Ox O2 Delivery O2 Flow Rate FiO2 03/24/18 12:00 98.3 74 18 133/89 (104) 95 74 03/24/18 11:36 75 03/24/18 09:12 77 141/83 03/24/18 09:00 Room Air 03/24/18 08:00 98.2 77 18 141/83 (102) 96 77 03/24/18 07:42 74 03/24/18 03:31 83 03/23/18 23:26 79 03/23/18 21:00 Room Air 03/23/18 20:44 80 159/71 03/23/18 19:00 83 Intake and Output 03/23/18 03/24/18 19:00 07:00 Intake Total 467.5 ml 87.08 ml Balance 467.5 ml 87.08 ml Intake Oral 240 ml IV Total 227.5 ml 87.08 ml # Voids 1 3 Laboratory Tests Test 03/24/18 05:25 White Blood Count 11.7 K/UL (4.8-10.8) H Red Blood Count 4.06 M/UL (4.20-5.40) L Hemoglobin 12.7 G/DL (12.0-16.0) Hematocrit 37.2 % (37.0-47.0) Mean Corpuscular Volume 92 FL (80-99) Mean Corpuscular Hemoglobin 31.1 PG (27.0-31.0) H Mean Corpuscular Hemoglobin Concent 34.0 G/DL (32.0-36.0) Red Cell Distribution Width 11.7 % (11.6-14.8) Platelet Count 317 K/UL (150-450) Mean Platelet Volume 6.6 FL (6.5-10.1) Neutrophils (%) (Auto) % (45.0-75.0) Lymphocytes (%) (Auto) % (20.0-45.0) Monocytes (%) (Auto) % (1.0-10.0) Eosinophils (%) (Auto) % (0.0-3.0) Basophils (%) (Auto) % (0.0-2.0) Differential Total Cells Counted 100 Neutrophils % (Manual) 88 % (45-75) H Lymphocytes % (Manual) 8 % (20-45) L Monocytes % (Manual) 1 % (1-10) Eosinophils % (Manual) 0 % (0-3) Basophils % (Manual) 0 % (0-2) Band Neutrophils 3 % (0-8) Platelet Estimate Adequate Platelet Morphology Normal Red Blood Cell Morphology Normal Erythrocyte Sedimentation Rate 82 MM/HR (0-30) H Reticulocyte Count 1.8 % (0.0-2.0) Prothrombin Time 10.0 SEC (9.30-11.50) Prothromb Time International Ratio 0.9 (0.9-1.1) Activated Partial Thromboplast Time 29 SEC (23-33) Sodium Level 134 MMOL/L (136-145) L Potassium Level 4.0 MMOL/L (3.5-5.1) Chloride Level 100 MMOL/L (98-107) Carbon Dioxide Level 22 MMOL/L (21-32) Anion Gap 12 mmol/L (5-15) Blood Urea Nitrogen 30 mg/dL (7-18) H Creatinine 1.5 MG/DL (0.55-1.30) H Estimat Glomerular Filtration Rate 42.3 mL/min (>60) Glucose Level 232 MG/DL (74-106) #H Calcium Level 9.5 MG/DL (8.5-10.1) Phosphorus Level 3.4 MG/DL (2.5-4.9) Magnesium Level 1.7 MG/DL (1.8-2.4) L Iron Level 56 ug/dL (50-175) Total Iron Binding Capacity 313 ug/dL (250-450) Percent Iron Saturation 18 % (15-50) Unsaturated Iron Binding 257 ug/dL (112-346) Lactate Dehydrogenase 185 U/L (81-234) C-Reactive Protein, Quantitative 2.0 mg/dL (0.00-0.90) H Carcinoembryonic Antigen Pending Vitamin B12 Level 485 PG/ML (193-986) Folate 13.8 NG/ML (8.6-58.9) Height (Feet): 5 Height (Inches): 5.00 Weight (Pounds): 220 Medications Current Medications Medications (Trade) Dose Ordered Sig/Marline Route PRN Reason Start Time Stop Time Status Last Admin Dose Admin Albuterol/ Ipratropium (Albuterol/ Ipratropium) 3 ml Q4H PRN HHN dyspnea 03/23/18 14:45 03/28/18 14:44 Carvedilol (Coreg) 6.25 mg EVERY 12 HOURS ORAL 03/23/18 21:00 04/22/18 20:59 03/24/18 09:12 Clopidogrel Bisulfate (Plavix) 75 mg DAILY ORAL 03/24/18 09:00 04/23/18 08:59 03/24/18 09:12 Dextrose (Dextrose 50%) 25 ml Q30M PRN IV Hypoglycemia 03/23/18 14:45 04/22/18 14:44 Dextrose (Dextrose 50%) 50 ml Q30M PRN IV Hypoglycemia 03/23/18 14:45 04/22/18 14:44 Heparin Sodium (Porcine) (Heparin 5000 units/ml) 5,000 units EVERY 12 HOURS SUBQ 03/23/18 21:00 04/22/18 20:59 03/24/18 09:13 Levothyroxine Sodium (Synthroid) 25 mcg ACBREAKFAST ORAL 03/24/18 06:30 04/23/18 06:29 03/24/18 05:50 Lorazepam (Ativan 2mg/ml 1ml) 0.5 mg Q4H PRN IV For Anxiety 03/23/18 14:45 03/30/18 14:44 Methylprednisolone Sodium Succinate (Solu-MEDROL) 60 mg EVERY 6 HOURS IV 03/23/18 18:00 04/22/18 17:59 03/24/18 12:34 Morphine Sulfate (Morphine Sulfate) 2 mg Q4H PRN IVP severe pain 7-10 03/23/18 14:45 03/30/18 14:44 Nitroglycerin (Ntg) 0.4 mg Q5M X 3 DOSES PRN SL Prn Chest Pain 03/23/18 14:45 04/22/18 14:44 Ondansetron HCl (Zofran) 4 mg Q6H PRN IVP Nausea & Vomiting 03/23/18 14:45 04/22/18 14:44 Piperacillin Sod/ Tazobactam Sod 3.375 gm/Dextrose 110 ml @ 27.5 mls/hr EVERY 8 HOURS IVPB 03/23/18 17:00 03/28/18 16:59 03/24/18 14:18 Promethazine HCl/ Codeine (Phenergan with Codeine) 5 ml Q6H PRN ORAL cough 03/23/18 14:45 04/22/18 14:44 Temazepam (Restoril) 15 mg HSPRN PRN ORAL Insomnia 03/23/18 14:45 03/30/18 14:44 Theophylline (Domenic-Dur) 100 mg EVERY 12 HOURS ORAL 03/23/18 21:00 04/22/18 20:59 03/24/18 09:12 Assessment/Plan Problem List: (1) Anxiety disorder ICD Codes: F41.9 - Anxiety disorder, unspecified SNOMED: [id number] Status: stable Assessment/Plan ativan prn provided ro/st MIPS Medication Reconciliation 130 Medication Reconciliation BMI was documented today or within the past year. BMI was outside normal parameters, and the patient received counseling. Is this a Psycho/Diag encounte: Yes Unhealthy Alcohol Use 431 (psycho/diag only) Patient was screened for tobacco use today or within the past 2 years. Patient was NOT identified as a tobacco user. Tobacco Use 226 (psycho/diag only) Patient was screened for unhealthy alcohol use today or within the past 2 years. Patient was NOT identified as an unhealthy alcohol user. Depression PHQ-9 Score: 12 Does this Patient have Dementi: Vish Colbert MD Mar 24, 2018 16:52
--- NOTE | 2018-03-24 17:07 | General Progress Note ---
Assessment/Plan Problem List: (1) Anxiety disorder ICD Codes: F41.9 - Anxiety disorder, unspecified SNOMED: 319591826 Status: stable, progressing Assessment/Plan ativan prn provided ro/st Subjective Date patient seen: Mar 24, 2018 Neurologic/Psychiatric: Reports: anxiety, depressed, emotional problems Allergies: Coded Allergies: No Known Allergies (Verified , 05/05/16) Objective Last 24 Hour Vital Signs Date Time Temp Pulse Resp B/P (MAP) Pulse Ox O2 Delivery O2 Flow Rate FiO2 03/24/18 12:00 98.3 74 18 133/89 (104) 95 74 03/24/18 11:36 75 03/24/18 09:12 77 141/83 03/24/18 09:00 Room Air 03/24/18 08:00 98.2 77 18 141/83 (102) 96 77 03/24/18 07:42 74 03/24/18 03:31 83 03/23/18 23:26 79 03/23/18 21:00 Room Air 03/23/18 20:44 80 159/71 03/23/18 19:00 83 Intake and Output 03/23/18 03/24/18 19:00 07:00 Intake Total 467.5 ml 87.08 ml Balance 467.5 ml 87.08 ml Intake Oral 240 ml IV Total 227.5 ml 87.08 ml # Voids 1 3 Laboratory Tests 03/24/18 05:25: White Blood Count 11.7H, Red Blood Count 4.06L, Hemoglobin 12.7, Hematocrit 37.2 , Mean Corpuscular Volume 92, Mean Corpuscular Hemoglobin 31.1H, Mean Corpuscular Hemoglobin Concent 34.0, Red Cell Distribution Width 11.7, Platelet Count 317, Mean Platelet Volume 6.6, Neutrophils (%) (Auto) , Lymphocytes (%) ( Auto) , Monocytes (%) (Auto) , Eosinophils (%) (Auto) , Basophils (%) (Auto) , Differential Total Cells Counted 100, Neutrophils % (Manual) 88H, Lymphocytes % (Manual) 8L, Monocytes % (Manual) 1, Eosinophils % (Manual) 0, Basophils % ( Manual) 0, Band Neutrophils 3, Platelet Estimate Adequate, Platelet Morphology Normal, Red Blood Cell Morphology Normal, Erythrocyte Sedimentation Rate 82H, Reticulocyte Count 1.8, Prothrombin Time 10.0, Prothromb Time International Ratio 0.9, Activated Partial Thromboplast Time 29, Sodium Level 134L, Potassium Level 4.0, Chloride Level 100, Carbon Dioxide Level 22, Anion Gap 12, Blood Urea Nitrogen 30H, Creatinine 1.5H, Estimat Glomerular Filtration Rate 42.3, Glucose Level 232#H, Calcium Level 9.5, Phosphorus Level 3.4, Magnesium Level 1.7L, Iron Level 56, Total Iron Binding Capacity 313, Percent Iron Saturation 18 , Unsaturated Iron Binding 257, Lactate Dehydrogenase 185, C-Reactive Protein, Quantitative 2.0H, Carcinoembryonic Antigen [Pending], Vitamin B12 Level 485, Folate 13.8 Height (Feet): 5 Height (Inches): 5.00 Weight (Pounds): 220 General Appearance: no apparent distress, alert, obese Neurologic: oriented x 3, responsive, depressed affect MIPS Unhealthy Alcohol Use 431 (psycho/diag only) I Obtained,updated or reviewed the patient's current medications (including prescription,over the counter, herbal, and nutritional supplements). Tobacco Use 226 (psycho/diag only) Depression follow-up Plan Additional Evaluation Pharmacologic intervention Psychotherapy Other: BMI 128 (psycho/diag only) Depression screening was performed today. Depression Does this Patient have Dementi: Vish Colbert MD Mar 24, 2018 17:07
--- NOTE | 2018-03-24 19:43 | Cardiology Report ---
APPROVED REPORT EKG Measurement Heart [id number] Normal sinus rhythm Prolonged QT Abnormal ECG
[2018-03-24 20:00] VITALS: BP 149/88
[2018-03-25] VITALS: BP 147/76
[2018-03-25 04:00] VITALS: BP 147/86
[2018-03-25] MEDS: Solu-MEDROL 125mg Inj IV SCH ×2 (05:31→11:25)
[2018-03-25] MEDS: Levothyroxine 25mcg tab ORAL SCH (05:32)
[2018-03-25] MEDS: Piperacillin/Tazobactam 3.375 GM in D5W 110 ML IVPB SCH ×3 (05:32→22:20)
[2018-03-25 08:00] VITALS: BP 137/79
[2018-03-25] MEDS: Theophylline ER 100mg ORAL SCH ×2 (08:19→20:51)
[2018-03-25] MEDS: Carvedilol 6.25mg Tab ORAL SCH ×2 (08:20→20:51)
[2018-03-25] MEDS: Heparin 5000 units/ml inj SUBQ SCH ×2 (08:24→20:53)
[2018-03-25 08:28] LABS: HEMATOCRIT 34.2 % (37.0-47.0); HEMOGLOBIN 11.4 G/DL (12.0-16.0); MEAN CORPUSCULAR VOLUME 92 FL (80-99); PLATELET COUNT 275 K/UL (150-450); WHITE BLOOD COUNT 17.8 K/UL (4.8-10.8)
[2018-03-25 08:58] LABS: ANION GAP 10 mmol/L (5-15); BLOOD UREA NITROGEN 21 mg/dL (7-18); CALCIUM 9.6 MG/DL (8.5-10.1); CARBON DIOXIDE 21 MMOL/L (21-32); CHLORIDE 101 MMOL/L (98-107); CREATININE 1.2 MG/DL (0.55-1.30); SODIUM 131 MMOL/L (136-145)
[2018-03-25] MEDS ORDERED: Pred Forte 1% Opth Susp 1ml BOTH EYES ONE (09:00)
[2018-03-25] MEDS: Tropicamide 1% Opth 15ml Soln BOTH EYES SCH ×2 (09:42→18:00)
[2018-03-25] MEDS: Brimonidine 0.2% Opth Sol BOTH EYES SCH ×3 (09:42→18:00)
[2018-03-25] MEDS: Magnesium Oxide 400mg tab ORAL SCH ×2 (11:24→18:04)
--- NOTE | 2018-03-25 11:24 | Cardiac Electrophysiology PN ---
Subjective Subjective [id number] Objective Last 24 Hour Vital Signs Date Time Temp Pulse Resp B/P (MAP) Pulse Ox O2 Delivery O2 Flow Rate FiO2 03/25/18 09:00 Room Air 03/25/18 08:20 75 137/79 03/25/18 08:00 98.3 75 18 137/79 (98) 96 75 03/25/18 04:00 98.0 85 18 147/86 (106) 96 85 03/25/18 03:32 79 03/25/18 00:00 98.0 86 19 147/76 (99) 96 86 03/24/18 21:03 80 03/24/18 21:00 Room Air 03/24/18 20:19 73 149/88 03/24/18 20:00 97.7 73 18 149/88 (108) 96 73 03/24/18 16:00 97.2 72 18 146/93 (110) 96 72 03/24/18 15:28 77 03/24/18 12:00 98.3 74 18 133/89 (104) 95 74 03/24/18 11:36 75 Intake and Output 03/24/18 03/25/18 19:00 07:00 Intake Total 1050 ml 120 ml Balance 1050 ml 120 ml Intake Oral 1050 ml Other 120 ml # Voids 4 1 # Bowel Movements 1 Laboratory Tests Test 03/25/18 07:38 White Blood Count 17.8 K/UL (4.8-10.8) #H Red Blood Count 3.70 M/UL (4.20-5.40) L Hemoglobin 11.4 G/DL (12.0-16.0) L Hematocrit 34.2 % (37.0-47.0) L Mean Corpuscular Volume 92 FL (80-99) Mean Corpuscular Hemoglobin 30.9 PG (27.0-31.0) Mean Corpuscular Hemoglobin Concent 33.4 G/DL (32.0-36.0) Red Cell Distribution Width 12.0 % (11.6-14.8) Platelet Count 275 K/UL (150-450) Mean Platelet Volume 7.0 FL (6.5-10.1) Neutrophils (%) (Auto) % (45.0-75.0) Lymphocytes (%) (Auto) % (20.0-45.0) Monocytes (%) (Auto) % (1.0-10.0) Eosinophils (%) (Auto) % (0.0-3.0) Basophils (%) (Auto) % (0.0-2.0) Differential Total Cells Counted 100 Neutrophils % (Manual) 88 % (45-75) H Lymphocytes % (Manual) 10 % (20-45) L Monocytes % (Manual) 2 % (1-10) Eosinophils % (Manual) 0 % (0-3) Basophils % (Manual) 0 % (0-2) Band Neutrophils 0 % (0-8) Platelet Estimate Adequate Platelet Morphology Normal Hypochromasia 1+ Sodium Level 131 MMOL/L (136-145) L Potassium Level 4.0 MMOL/L (3.5-5.1) Chloride Level 101 MMOL/L (98-107) Carbon Dioxide Level 21 MMOL/L (21-32) Anion Gap 10 mmol/L (5-15) Blood Urea Nitrogen 21 mg/dL (7-18) H Creatinine 1.2 MG/DL (0.55-1.30) Estimat Glomerular Filtration Rate 54.7 mL/min (>60) Glucose Level 278 MG/DL (74-106) H Calcium Level 9.6 MG/DL (8.5-10.1) Pro-B-Type Natriuretic Peptide 1135 pg/mL (0-125) H Microbiology Date/Time Source Procedure Growth Status 03/23/18 13:43 Blood Blood Culture - Preliminary NO GROWTH AFTER 24 HOURS Resulted 03/23/18 13:20 Blood Blood Culture - Preliminary NO GROWTH AFTER 24 HOURS Resulted Kendall Gomes MD Mar 25, 2018 11:24
[2018-03-25 12:00] VITALS: BP 137/76
--- NOTE | 2018-03-25 12:01 | Pulmonology Progress Note ---
Assessment/Plan Problems: (1) COPD exacerbation (2) Acute bronchitis (3) History of CVA (cerebrovascular accident) (4) CAD (coronary artery disease) Assessment/Plan no new complains improving check sputum taper steroids to qD titrate fio2 to sat of 92% transfer to med/surg if ok with cardio cardiology evaluation Subjective ROS Limited/Unobtainable: No Constitutional: Reports: no symptoms HEENT: Repors: no symptoms Respiratory: Reports: no symptoms Allergies: Coded Allergies: No Known Allergies (Verified , 05/05/16) Objective Last 24 Hour Vital Signs Date Time Temp Pulse Resp B/P (MAP) Pulse Ox O2 Delivery O2 Flow Rate FiO2 03/25/18 09:00 Room Air 03/25/18 08:20 75 137/79 03/25/18 08:00 98.3 75 18 137/79 (98) 96 75 03/25/18 04:00 98.0 85 18 147/86 (106) 96 85 03/25/18 03:32 79 03/25/18 00:00 98.0 86 19 147/76 (99) 96 86 03/24/18 21:03 80 03/24/18 21:00 Room Air 03/24/18 20:19 73 149/88 03/24/18 20:00 97.7 73 18 149/88 (108) 96 73 03/24/18 16:00 97.2 72 18 146/93 (110) 96 72 03/24/18 15:28 77 03/24/18 12:00 98.3 74 18 133/89 (104) 95 74 Intake and Output 03/24/18 03/25/18 19:00 07:00 Intake Total 1050 ml 120 ml Balance 1050 ml 120 ml Intake Oral 1050 ml Other 120 ml # Voids 4 1 # Bowel Movements 1 General Appearance: WD/WN HEENT: normocephalic Breasts: no masses Cardiovascular: normal rate Abdomen: normal bowel sounds, soft, non tender Microbiology Date/Time Source Procedure Growth Status 03/23/18 13:43 Blood Blood Culture - Preliminary NO GROWTH AFTER 24 HOURS Resulted 03/23/18 13:20 Blood Blood Culture - Preliminary NO GROWTH AFTER 24 HOURS Resulted 03/24/18 22:00 Sputum Expectorated Gram Stain - Final Resulted 03/24/18 22:00 Sputum Expectorated Sputum Culture Pending Resulted Laboratory Tests 03/25/18 07:38: White Blood Count 17.8#H, Red Blood Count 3.70L, Hemoglobin 11.4L, Hematocrit 34.2L, Mean Corpuscular Volume 92, Mean Corpuscular Hemoglobin 30.9, Mean Corpuscular Hemoglobin Concent 33.4, Red Cell Distribution Width 12.0, Platelet Count 275, Mean Platelet Volume 7.0, Neutrophils (%) (Auto) , Lymphocytes (%) ( Auto) , Monocytes (%) (Auto) , Eosinophils (%) (Auto) , Basophils (%) (Auto) , Differential Total Cells Counted 100, Neutrophils % (Manual) 88H, Lymphocytes % (Manual) 10L, Monocytes % (Manual) 2, Eosinophils % (Manual) 0, Basophils % ( Manual) 0, Band Neutrophils 0, Platelet Estimate Adequate, Platelet Morphology Normal, Hypochromasia 1+, Sodium Level 131L, Potassium Level 4.0, Chloride Level 101, Carbon Dioxide Level 21, Anion Gap 10, Blood Urea Nitrogen 21H, Creatinine 1.2, Estimat Glomerular Filtration Rate 54.7, Glucose Level 278H, Calcium Level 9.6, Pro-B-Type Natriuretic Peptide 1135H Current Medications Medications (Trade) Dose Ordered Sig/Marline Route PRN Reason Start Time Stop Time Status Last Admin Dose Admin Acetaminophen (Tylenol) 325 mg Q6H PRN ORAL Mild Pain/Temp > 100.5 03/24/18 21:45 04/23/18 21:44 Albuterol/ Ipratropium (Albuterol/ Ipratropium) 3 ml Q4H PRN HHN dyspnea 03/23/18 14:45 03/28/18 14:44 Brimonidine Tartrate (Alphagan) 1 drop THREE TIMES A DAY BOTH EYES 03/25/18 09:00 04/24/18 08:59 03/25/18 09:42 Carvedilol (Coreg) 6.25 mg EVERY 12 HOURS ORAL 03/23/18 21:00 04/22/18 20:59 03/25/18 08:20 Clopidogrel Bisulfate (Plavix) 75 mg DAILY ORAL 03/24/18 09:00 04/23/18 08:59 03/25/18 08:20 Dextrose (Dextrose 50%) 25 ml Q30M PRN IV Hypoglycemia 03/23/18 14:45 04/22/18 14:44 Dextrose (Dextrose 50%) 50 ml Q30M PRN IV Hypoglycemia 03/23/18 14:45 04/22/18 14:44 Furosemide (Lasix) 40 mg EVERY 12 HOURS IV 03/25/18 21:00 04/24/18 20:59 Heparin Sodium (Porcine) (Heparin 5000 units/ml) 5,000 units EVERY 12 HOURS SUBQ 03/23/18 21:00 04/22/18 20:59 03/25/18 08:24 Levothyroxine Sodium (Synthroid) 25 mcg ACBREAKFAST ORAL 03/24/18 06:30 04/23/18 06:29 03/25/18 05:32 Lisinopril (Zestril) 10 mg DAILY ORAL 03/26/18 09:00 04/25/18 08:59 Lorazepam (Ativan 2mg/ml 1ml) 0.5 mg Q4H PRN IV For Anxiety 03/23/18 14:45 03/30/18 14:44 Magnesium Oxide (Mag-Ox 400mg) 400 mg BID ORAL 03/25/18 11:00 04/24/18 10:59 03/25/18 11:24 Methylprednisolone Sodium Succinate (Solu-MEDROL) 60 mg EVERY 6 HOURS IV 03/23/18 18:00 04/22/18 17:59 03/25/18 11:25 Morphine Sulfate (Morphine Sulfate) 2 mg Q4H PRN IVP severe pain 7-10 03/23/18 14:45 03/30/18 14:44 03/24/18 20:21 Nitroglycerin (Ntg) 0.4 mg Q5M X 3 DOSES PRN SL Prn Chest Pain 03/23/18 14:45 04/22/18 14:44 Ondansetron HCl (Zofran) 4 mg Q6H PRN IVP Nausea & Vomiting 03/23/18 14:45 04/22/18 14:44 Patient Own Medication (Patient's Own Med) 1 ea BEDTIME OPHTHALM 03/25/18 21:00 04/24/18 20:59 UNV Piperacillin Sod/ Tazobactam Sod 3.375 gm/Dextrose 110 ml @ 27.5 mls/hr EVERY 8 HOURS IVPB 03/23/18 17:00 03/28/18 16:59 03/25/18 05:32 Promethazine HCl/ Codeine (Phenergan with Codeine) 5 ml Q6H PRN ORAL cough 03/23/18 14:45 04/22/18 14:44 Spironolactone (Aldactone) 25 mg DAILY ORAL 03/26/18 09:00 04/25/18 08:59 Temazepam (Restoril) 15 mg HSPRN PRN ORAL Insomnia 03/23/18 14:45 03/30/18 14:44 Theophylline (Domenic-Dur) 100 mg EVERY 12 HOURS ORAL 03/23/18 21:00 04/22/18 20:59 03/25/18 08:19 Tropicamide (Mydriacyl) 1 drop TWICE A DAY BOTH EYES 03/25/18 09:00 04/24/18 08:59 03/25/18 09:42 Halina Hameed MD Mar 25, 2018 12:01
--- NOTE | 2018-03-25 12:15 | Internal Med Progress Note ---
Subjective Date of Service: Mar 25, 2018 Physician Name Antonio Anglin Attending Physician Charly Sandhu MD Current Medications Medications (Trade) Dose Ordered Sig/Marline Route PRN Reason Start Time Stop Time Status Last Admin Dose Admin Acetaminophen (Tylenol) 325 mg Q6H PRN ORAL Mild Pain/Temp > 100.5 03/24/18 21:45 04/23/18 21:44 Albuterol/ Ipratropium (Albuterol/ Ipratropium) 3 ml Q4H PRN HHN dyspnea 03/23/18 14:45 03/28/18 14:44 Brimonidine Tartrate (Alphagan) 1 drop THREE TIMES A DAY BOTH EYES 03/25/18 09:00 04/24/18 08:59 03/25/18 09:42 Carvedilol (Coreg) 6.25 mg EVERY 12 HOURS ORAL 03/23/18 21:00 04/22/18 20:59 03/25/18 08:20 Clopidogrel Bisulfate (Plavix) 75 mg DAILY ORAL 03/24/18 09:00 04/23/18 08:59 03/25/18 08:20 Dextrose (Dextrose 50%) 25 ml Q30M PRN IV Hypoglycemia 03/23/18 14:45 04/22/18 14:44 Dextrose (Dextrose 50%) 50 ml Q30M PRN IV Hypoglycemia 03/23/18 14:45 04/22/18 14:44 Furosemide (Lasix) 40 mg EVERY 12 HOURS IV 03/25/18 21:00 04/24/18 20:59 Heparin Sodium (Porcine) (Heparin 5000 units/ml) 5,000 units EVERY 12 HOURS SUBQ 03/23/18 21:00 04/22/18 20:59 03/25/18 08:24 Levothyroxine Sodium (Synthroid) 25 mcg ACBREAKFAST ORAL 03/24/18 06:30 04/23/18 06:29 03/25/18 05:32 Lisinopril (Zestril) 10 mg DAILY ORAL 03/26/18 09:00 04/25/18 08:59 Lorazepam (Ativan 2mg/ml 1ml) 0.5 mg Q4H PRN IV For Anxiety 03/23/18 14:45 03/30/18 14:44 Magnesium Oxide (Mag-Ox 400mg) 400 mg BID ORAL 03/25/18 11:00 1/4/19 10:59 03/25/18 11:24 Methylprednisolone Sodium Succinate (Solu-MEDROL) 60 mg DAILY IV 03/26/18 09:00 04/22/18 17:59 Morphine Sulfate (Morphine Sulfate) 2 mg Q4H PRN IVP severe pain 7-10 03/23/18 14:45 03/30/18 14:44 03/24/18 20:21 Nitroglycerin (Ntg) 0.4 mg Q5M X 3 DOSES PRN SL Prn Chest Pain 03/23/18 14:45 04/22/18 14:44 Ondansetron HCl (Zofran) 4 mg Q6H PRN IVP Nausea & Vomiting 03/23/18 14:45 04/22/18 14:44 Patient Own Medication (Patient's Own Med) 1 ea BEDTIME OPHTHALM 03/25/18 21:00 04/24/18 20:59 UNV Piperacillin Sod/ Tazobactam Sod 3.375 gm/Dextrose 110 ml @ 27.5 mls/hr EVERY 8 HOURS IVPB 03/23/18 17:00 03/28/18 16:59 03/25/18 05:32 Promethazine HCl/ Codeine (Phenergan with Codeine) 5 ml Q6H PRN ORAL cough 03/23/18 14:45 04/22/18 14:44 Spironolactone (Aldactone) 25 mg DAILY ORAL 03/26/18 09:00 04/25/18 08:59 Temazepam (Restoril) 15 mg HSPRN PRN ORAL Insomnia 03/23/18 14:45 03/30/18 14:44 Theophylline (Domenic-Dur) 100 mg EVERY 12 HOURS ORAL 03/23/18 21:00 04/22/18 20:59 03/25/18 08:19 Tropicamide (Mydriacyl) 1 drop TWICE A DAY BOTH EYES 03/25/18 09:00 04/24/18 08:59 03/25/18 09:42 Allergies: Coded Allergies: No Known Allergies (Verified , 05/05/16) ROS Limited/Unobtainable: No Constitutional: Reports: no symptoms HEENT: Reports: no symptoms Cardiovascular: Reports: no symptoms Subjective 67 YO F admitted with dyspnea. Now COPD exacerbation and CHF. Cover for Int Med-Dr Sandhu. Await echocardiogram Objective Last Vital Signs Date Time Temp Pulse Resp B/P (MAP) Pulse Ox O2 Delivery O2 Flow Rate FiO2 03/25/18 09:00 Room Air 03/25/18 08:20 75 137/79 03/25/18 08:00 98.3 18 96 03/23/18 15:54 21 Laboratory Tests Test 03/25/18 07:38 White Blood Count 17.8 K/UL (4.8-10.8) #H Red Blood Count 3.70 M/UL (4.20-5.40) L Hemoglobin 11.4 G/DL (12.0-16.0) L Hematocrit 34.2 % (37.0-47.0) L Mean Corpuscular Volume 92 FL (80-99) Mean Corpuscular Hemoglobin 30.9 PG (27.0-31.0) Mean Corpuscular Hemoglobin Concent 33.4 G/DL (32.0-36.0) Red Cell Distribution Width 12.0 % (11.6-14.8) Platelet Count 275 K/UL (150-450) Mean Platelet Volume 7.0 FL (6.5-10.1) Neutrophils (%) (Auto) % (45.0-75.0) Lymphocytes (%) (Auto) % (20.0-45.0) Monocytes (%) (Auto) % (1.0-10.0) Eosinophils (%) (Auto) % (0.0-3.0) Basophils (%) (Auto) % (0.0-2.0) Differential Total Cells Counted 100 Neutrophils % (Manual) 88 % (45-75) H Lymphocytes % (Manual) 10 % (20-45) L Monocytes % (Manual) 2 % (1-10) Eosinophils % (Manual) 0 % (0-3) Basophils % (Manual) 0 % (0-2) Band Neutrophils 0 % (0-8) Platelet Estimate Adequate Platelet Morphology Normal Hypochromasia 1+ Sodium Level 131 MMOL/L (136-145) L Potassium Level 4.0 MMOL/L (3.5-5.1) Chloride Level 101 MMOL/L (98-107) Carbon Dioxide Level 21 MMOL/L (21-32) Anion Gap 10 mmol/L (5-15) Blood Urea Nitrogen 21 mg/dL (7-18) H Creatinine 1.2 MG/DL (0.55-1.30) Estimat Glomerular Filtration Rate 54.7 mL/min (>60) Glucose Level 278 MG/DL (74-106) H Calcium Level 9.6 MG/DL (8.5-10.1) Pro-B-Type Natriuretic Peptide 1135 pg/mL (0-125) H Microbiology Date/Time Source Procedure Growth Status 03/23/18 13:43 Blood Blood Culture - Preliminary NO GROWTH AFTER 24 HOURS Resulted 03/23/18 13:20 Blood Blood Culture - Preliminary NO GROWTH AFTER 24 HOURS Resulted 03/24/18 22:00 Sputum Expectorated Gram Stain - Final Resulted 03/24/18 22:00 Sputum Expectorated Sputum Culture Pending Resulted Intake and Output 03/24/18 03/25/18 19:00 07:00 Intake Total 1050 ml 120 ml Balance 1050 ml 120 ml Intake Oral 1050 ml Other 120 ml # Voids 4 1 # Bowel Movements 1 Objective General Appearance: WD/WN, no apparent distress, alert EENT: PERRL/EOMI, normal ENT inspection Neck: non-tender, normal alignment, supple, normal inspection Cardiovascular: normal peripheral pulses, normal rate, regular rhythm, no gallop/murmur, no JVD Respiratory/Chest: chest wall non-tender, lungs with few expiratory wheezes, no respiratory distress, no accessory muscle use Abdomen: normal bowel sounds, non tender, soft, no organomegaly, no mass Extremities: normal range of motion, non-tender 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 See cardiology consult note. Await echocardiogram (6) CAD (coronary artery disease) (7) COPD exacerbation Assessment & Plan: Continue to decrease IV solumedrol per pulmonary. Status: progressing Antonio Anglin MD Mar 25, 2018 12:15
[2018-03-25 16:00] VITALS: BP 152/69
--- NOTE | 2018-03-25 16:28 | Cardiology Report ---
APPROVED REPORT EXAM: Two-dimensional and M-mode echocardiogram with Doppler and color Doppler. INDICATION Congestive Heart Failure M-Mode DIMENSIONS IVSd1.2 (0.7-1.1cm)Left Atrium (MM)5.3 (1.6-4.0cm) LVDd5.0 (3.5-5.6cm)Aortic Root2.2 (2.0-3.7cm) PWd1.3 (0.7-1.1cm)Aortic Cusp Exc.1.5 (1.5-2.0cm) LVDs4.2 (2.5-4.0cm) PWs1.3 cm Normal left ventricular chamber size. Global left ventricular hypokinesis. Left ventricular ejection fraction estimated to be 35-40 %. Mild left ventricular hypertrophy. Small circumferential pericardial effusion. Mild left atrial enlargement. Right cardiac chamber sizes are within normal limits. Mild focal aortic valve sclerosis with adequate cusp excursion. Thickened mitral valve leaflets with normal excursion. Mild mitral annulus and aortic root calcification. Pulmonic valve not well visualized. Normal tricuspid valve structure. IVC measures at 2.0 cm with physiological collapse. A color flow and spectral Doppler study was performed and revealed: No aortic insufficiency. Moderate to severe mitral regurgitation. Mitral diastolic velocities suggest mild left ventricular diastolic dysfunction (Grade I). No tricuspid regurgitation. Mild pulmonic regurgitation present.
--- NOTE | 2018-03-25 18:45 | Consultation ---
DATE OF CONSULTATION: 03/25/2018 CARDIOLOGY CONSULTATION CONSULTING PHYSICIAN: Kendall Gomes M.D. REFERRING PHYSICIAN: Antonio Anglin M.D. REASON FOR CONSULTATION: Hypertension and congestive heart failure. HISTORY OF PRESENT ILLNESS: The patient is a 67-year-old lady with history of hypertension and congestive heart failure, presents to the emergency room for increasing shortness of breath for one week prior to the admission. The patient was admitted last time in October 2017 for exacerbation of congestive heart failure and presents again for similar symptoms. The patient was admitted and a Cardiology consultation was obtained for further evaluation and management. REVIEW OF SYSTEMS: Review of systems was performed and was negative other than what was mentioned in the history of present illness. PAST MEDICAL HISTORY: 1. Hypertension. 2. Congestive heart failure. 3. CVA in 2008 with a right hemiparesis. 4. Coronary artery disease. FAMILY HISTORY: Noncontributory. MEDICATIONS: Include aspirin, Coreg, Lipitor, Plavix, Lasix, Levoxyl, valsartan, and Aldactone. ALLERGIES: She has no known drug allergies. SOCIAL HISTORY: She is single, lives with daughter. Does not smoke or drink alcohol. PHYSICAL EXAMINATION: VITAL SIGNS: Blood pressure of 137/79, pulse 75, respirations 18, and temperature 98.3. HEAD AND NECK: No JVD. LUNGS: Decreased breath sounds. CARDIOVASCULAR: Regular S1 and S2 with no gallop. ABDOMEN: Soft. EXTREMITIES: 1+ pitting edema. LABORATORY DATA: Her labs show white count 17.8, hemoglobin of 11.4, hematocrit 34.2, and platelet count 275,000. Sodium 131, potassium 4.0, BUN of 21, creatinine 1.2, and glucose of 278. Magnesium is 1.7. BNP is 1135. ASSESSMENT AND PLAN: 1. Exacerbation of congestive heart failure. We will repeat the echocardiogram. The BNP is more than 1000. The patient is already on Coreg 6.25 mg b.i.d. and resumed lisinopril, Aldactone, and Lasix to her medical regimen. Her echocardiogram showed ejection fraction is still less than 35%, she may need a prophylactic defibrillator implantation. 2. Hypertension. Continue current heart failure therapy. 3. Chronic obstructive pulmonary disease. 4. History of coronary artery disease. The patient has a chest pain, on Coreg and Plavix. 5. Morbid obesity. 6. Hypothyroidism, on Synthroid. Thank you very much for allowing me to participate in the care of this patient. Please do not hesitate to contact me for any questions regarding my evaluation. Kendall Gomes M.D. DR: NITA JOB#: [id number] CC:
[2018-03-25 20:00] VITALS: BP 135/76
--- NOTE | 2018-03-25 22:49 | General Progress Note ---
Assessment/Plan Problem List: (1) Anxiety disorder ICD Codes: F41.9 - Anxiety disorder, unspecified SNOMED: 793732218 Status: stable Assessment/Plan ativan prn provided ro/st Subjective Neurologic/Psychiatric: Reports: anxiety, depressed, emotional problems Allergies: Coded Allergies: No Known Allergies (Verified , 05/05/16) Objective Last 24 Hour Vital Signs Date Time Temp Pulse Resp B/P (MAP) Pulse Ox O2 Delivery O2 Flow Rate FiO2 03/25/18 20:51 75 135/76 03/25/18 20:00 98.4 75 17 135/76 (95) 97 75 03/25/18 16:00 98.1 70 18 152/69 (96) 98 70 03/25/18 16:00 73 03/25/18 12:00 98.3 73 18 137/76 (96) 98 73 03/25/18 12:00 69 03/25/18 09:00 Room Air 03/25/18 08:20 75 137/79 03/25/18 08:00 98.3 75 18 137/79 (98) 96 75 03/25/18 08:00 72 03/25/18 04:00 98.0 85 18 147/86 (106) 96 85 03/25/18 03:32 79 03/25/18 00:00 98.0 86 19 147/76 (99) 96 86 Intake and Output 03/24/18 03/25/18 19:00 07:00 Intake Total 1050 ml 120 ml Balance 1050 ml 120 ml Intake Oral 1050 ml Other 120 ml # Voids 4 1 # Bowel Movements 1 Laboratory Tests 03/25/18 07:38: White Blood Count 17.8#H, Red Blood Count 3.70L, Hemoglobin 11.4L, Hematocrit 34.2L, Mean Corpuscular Volume 92, Mean Corpuscular Hemoglobin 30.9, Mean Corpuscular Hemoglobin Concent 33.4, Red Cell Distribution Width 12.0, Platelet Count 275, Mean Platelet Volume 7.0, Neutrophils (%) (Auto) , Lymphocytes (%) ( Auto) , Monocytes (%) (Auto) , Eosinophils (%) (Auto) , Basophils (%) (Auto) , Differential Total Cells Counted 100, Neutrophils % (Manual) 88H, Lymphocytes % (Manual) 10L, Monocytes % (Manual) 2, Eosinophils % (Manual) 0, Basophils % ( Manual) 0, Band Neutrophils 0, Platelet Estimate Adequate, Platelet Morphology Normal, Hypochromasia 1+, Sodium Level 131L, Potassium Level 4.0, Chloride Level 101, Carbon Dioxide Level 21, Anion Gap 10, Blood Urea Nitrogen 21H, Creatinine 1.2, Estimat Glomerular Filtration Rate 54.7, Glucose Level 278H, Calcium Level 9.6, Pro-B-Type Natriuretic Peptide 1135H Height (Feet): 5 Height (Inches): 5.00 Weight (Pounds): 225 General Appearance: no apparent distress, alert Neurologic: oriented x 3, responsive, depressed affect MIPS Medication Reconciliation Is this a Psycho/Diag encounte: No Unhealthy Alcohol Use 431 (psycho/diag only) Patient was screened for unhealthy alcohol use today or within the past 2 years. Patient was NOT identified as an unhealthy alcohol user. Tobacco Use 226 (psycho/diag only) Patient was screened for tobacco use today or within the past 2 years. Patient was NOT identified as a tobacco user. BMI 128 (psycho/diag only) BMI was documented today or within the past year. BMI was outside normal parameters, and the patient received counseling. Depression 134,411,370 (psycho/diag only) Depression screening was performed today. PHQ-9 Score: 5 Vish Ornelas MD Mar 25, 2018 22:49
[2018-03-26] VITALS: BP 144/82
[2018-03-26 04:00] VITALS: BP 142/85
[2018-03-26] MEDS: Levothyroxine 25mcg tab ORAL SCH (05:57)
[2018-03-26] MEDS: Piperacillin/Tazobactam 3.375 GM in D5W 110 ML IVPB SCH ×3 (05:58→21:19)
[2018-03-26 07:21] LABS: BASOPHILS % (AUTO) 0.4 % (0.0-2.0); HEMATOCRIT 33.5 % (37.0-47.0); HEMOGLOBIN 11.4 G/DL (12.0-16.0); LYMPHOCYTES % (AUTO) 14.8 % (20.0-45.0); MEAN CORPUSCULAR VOLUME 92 FL (80-99); MONOCYTES % (AUTO) 5.6 % (1.0-10.0); NEUTROPHILS % (AUTO) 79.3 % (45.0-75.0); PLATELET COUNT 294 K/UL (150-450); RED BLOOD COUNT 3.64 M/UL (4.20-5.40); RED CELL DISTRIBUTION WIDTH 12.1 % (11.6-14.8); WHITE BLOOD COUNT 16.1 K/UL (4.8-10.8)
[2018-03-26 07:43] LABS: ANION GAP 8 mmol/L (5-15); BLOOD UREA NITROGEN 24 mg/dL (7-18); CALCIUM 8.9 MG/DL (8.5-10.1); CARBON DIOXIDE 28 MMOL/L (21-32); CHLORIDE 102 MMOL/L (98-107); CREATININE 1.4 MG/DL (0.55-1.30); POTASSIUM 3.9 MMOL/L (3.5-5.1); SODIUM 138 MMOL/L (136-145)
[2018-03-26 08:00] VITALS: BP 145/81
[2018-03-26] MEDS: Heparin 5000 units/ml inj SUBQ SCH ×2 (08:49→21:24)
[2018-03-26] MEDS: Tropicamide 1% Opth 15ml Soln BOTH EYES SCH ×2 (08:50→17:27)
[2018-03-26] MEDS: Magnesium Oxide 400mg tab ORAL SCH ×2 (08:50→17:27)
[2018-03-26] MEDS: Brimonidine 0.2% Opth Sol BOTH EYES SCH ×3 (08:50→17:27)
[2018-03-26] MEDS: Lisinopril 10mg tab ORAL SCH (08:51)
[2018-03-26] MEDS: Spironolactone 25mg tab ORAL SCH (08:51)
[2018-03-26] MEDS: Theophylline ER 100mg ORAL SCH ×2 (08:51→21:19)
[2018-03-26] MEDS: Carvedilol 6.25mg Tab ORAL SCH ×2 (08:51→21:38)
[2018-03-26] MEDS ORDERED: Solu-MEDROL 125mg Inj IV SCH (09:00)
--- NOTE | 2018-03-26 10:47 | Cardiac Electrophysiology PN ---
Assessment/Plan Assessment/Plan 1. Exacerbation of congestive heart failure EF 35%. The BNP is more than 1000. The patient is already on Coreg 6.25 mg b.i.d. and lisinopril, Aldactone, and Lasix . She may need a prophylactic defibrillator implantation. 2. Hypertension. Continue current heart failure therapy. 3. Chronic obstructive pulmonary disease. 4. History of coronary artery disease. No chest pain, on Coreg and Plavix. 5. Morbid obesity. 6. Hypothyroidism, on Synthroid. Subjective Subjective Feeling better on iv Abx Objective Last 24 Hour Vital Signs Date Time Temp Pulse Resp B/P (MAP) Pulse Ox O2 Delivery O2 Flow Rate FiO2 03/26/18 09:10 Room Air 03/26/18 08:51 145/81 03/26/18 08:51 70 145/81 03/26/18 08:00 97.6 70 18 145/81 (102) 98 70 03/26/18 04:00 97.5 81 18 142/85 (104) 97 81 03/26/18 03:46 75 03/26/18 00:00 97.7 66 18 144/82 (102) 97 66 03/25/18 23:37 72 03/25/18 21:00 Room Air 03/25/18 20:51 75 135/76 03/25/18 20:00 98.4 75 17 135/76 (95) 97 75 03/25/18 19:13 80 03/25/18 16:00 98.1 70 18 152/69 (96) 98 70 03/25/18 16:00 73 03/25/18 12:00 98.3 73 18 137/76 (96) 98 73 03/25/18 12:00 69 Intake and Output 03/25/18 03/26/18 18:59 06:59 Intake Total 617.5 ml 730.0 ml Balance 617.5 ml 730.0 ml Intake Oral 590 ml 500 ml IV Total 27.5 ml 110.0 ml Other 120 ml # Voids 1 3 # Bowel Movements 1 Laboratory Tests Test 03/26/18 06:51 White Blood Count 16.1 K/UL (4.8-10.8) H Red Blood Count 3.64 M/UL (4.20-5.40) L Hemoglobin 11.4 G/DL (12.0-16.0) L Hematocrit 33.5 % (37.0-47.0) L Mean Corpuscular Volume 92 FL (80-99) Mean Corpuscular Hemoglobin 31.3 PG (27.0-31.0) H Mean Corpuscular Hemoglobin Concent 34.0 G/DL (32.0-36.0) Red Cell Distribution Width 12.1 % (11.6-14.8) Platelet Count 294 K/UL (150-450) Mean Platelet Volume 6.8 FL (6.5-10.1) Neutrophils (%) (Auto) 79.3 % (45.0-75.0) H Lymphocytes (%) (Auto) 14.8 % (20.0-45.0) L Monocytes (%) (Auto) 5.6 % (1.0-10.0) Eosinophils (%) (Auto) 0.0 % (0.0-3.0) Basophils (%) (Auto) 0.4 % (0.0-2.0) Sodium Level 138 MMOL/L (136-145) Potassium Level 3.9 MMOL/L (3.5-5.1) Chloride Level 102 MMOL/L (98-107) Carbon Dioxide Level 28 MMOL/L (21-32) Anion Gap 8 mmol/L (5-15) Blood Urea Nitrogen 24 mg/dL (7-18) H Creatinine 1.4 MG/DL (0.55-1.30) H Estimat Glomerular Filtration Rate 45.8 mL/min (>60) Glucose Level 172 MG/DL (74-106) #H Calcium Level 8.9 MG/DL (8.5-10.1) Microbiology Date/Time Source Procedure Growth Status 03/23/18 13:43 Blood Blood Culture - Preliminary NO GROWTH AFTER 48 HOURS Resulted 03/23/18 13:20 Blood Blood Culture - Preliminary NO GROWTH AFTER 48 HOURS Resulted 03/24/18 22:00 Sputum Expectorated Gram Stain - Final Resulted 03/24/18 22:00 Sputum Expectorated Sputum Culture - Preliminary NORMAL UPPER RESPIRATORY JUAN AT 24 ... Resulted Objective HEAD AND NECK: No JVD. LUNGS: Decreased breath sounds. CARDIOVASCULAR: Regular S1 and S2 with no gallop. ABDOMEN: Soft. EXTREMITIES: 1+ pitting edema. Kendall Gomes MD Mar 26, 2018 10:47
--- NOTE | 2018-03-26 11:57 | Pulmonology Progress Note ---
Assessment/Plan Problems: (1) COPD exacerbation (2) Acute bronchitis (3) History of CVA (cerebrovascular accident) (4) CAD (coronary artery disease) Assessment/Plan no new complains improving check sputum dc steroids to titrate fio2 to sat of 92% transfer to med/surg if ok with cardio cardiology evaluation appreciated Subjective ROS Limited/Unobtainable: No Constitutional: Reports: no symptoms HEENT: Repors: no symptoms Respiratory: Reports: no symptoms Allergies: Coded Allergies: No Known Allergies (Verified , 05/05/16) Objective Last 24 Hour Vital Signs Date Time Temp Pulse Resp B/P (MAP) Pulse Ox O2 Delivery O2 Flow Rate FiO2 03/26/18 09:10 Room Air 03/26/18 08:51 145/81 03/26/18 08:51 70 145/81 03/26/18 08:00 97.6 70 18 145/81 (102) 98 70 03/26/18 04:00 97.5 81 18 142/85 (104) 97 81 03/26/18 03:46 75 03/26/18 00:00 97.7 66 18 144/82 (102) 97 66 03/25/18 23:37 72 03/25/18 21:00 Room Air 03/25/18 20:51 75 135/76 03/25/18 20:00 98.4 75 17 135/76 (95) 97 75 03/25/18 19:13 80 03/25/18 16:00 98.1 70 18 152/69 (96) 98 70 03/25/18 16:00 73 03/25/18 12:00 98.3 73 18 137/76 (96) 98 73 03/25/18 12:00 69 Intake and Output 03/25/18 03/26/18 19:00 07:00 Intake Total 617.5 ml 730.0 ml Balance 617.5 ml 730.0 ml Intake Oral 590 ml 500 ml IV Total 27.5 ml 110.0 ml Other 120 ml # Voids 1 3 # Bowel Movements 1 General Appearance: WD/WN HEENT: normocephalic, atraumatic Respiratory/Chest: chest wall non-tender, lungs clear Breasts: no masses Cardiovascular: normal peripheral pulses Abdomen: normal bowel sounds, soft, non tender Genitourinary: normal external genitalia Extremities: no cyanosis Skin: no rash 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 Resulted Laboratory Tests 03/26/18 06:51: White Blood Count 16.1H, Red Blood Count 3.64L, Hemoglobin 11.4L, Hematocrit 33.5L, Mean Corpuscular Volume 92, Mean Corpuscular Hemoglobin 31.3H, Mean Corpuscular Hemoglobin Concent 34.0, Red Cell Distribution Width 12.1, Platelet Count 294, Mean Platelet Volume 6.8, Neutrophils (%) (Auto) 79.3H, Lymphocytes ( %) (Auto) 14.8L, Monocytes (%) (Auto) 5.6, Eosinophils (%) (Auto) 0.0, Basophils (%) (Auto) 0.4, Sodium Level 138, Potassium Level 3.9, Chloride Level 102, Carbon Dioxide Level 28, Anion Gap 8, Blood Urea Nitrogen 24H, Creatinine 1.4H, Estimat Glomerular Filtration Rate 45.8, Glucose Level 172#H, Calcium Level 8.9 Current Medications Medications (Trade) Dose Ordered Sig/Marline Route PRN Reason Start Time Stop Time Status Last Admin Dose Admin Acetaminophen (Tylenol) 325 mg Q6H PRN ORAL Mild Pain/Temp > 100.5 03/24/18 21:45 04/23/18 21:44 Albuterol/ Ipratropium (Albuterol/ Ipratropium) 3 ml Q4H PRN HHN dyspnea 03/23/18 14:45 03/28/18 14:44 Brimonidine Tartrate (Alphagan) 1 drop THREE TIMES A DAY BOTH EYES 03/25/18 09:00 04/24/18 08:59 03/26/18 08:50 Carvedilol (Coreg) 6.25 mg EVERY 12 HOURS ORAL 03/23/18 21:00 04/22/18 20:59 03/26/18 08:51 Clopidogrel Bisulfate (Plavix) 75 mg DAILY ORAL 03/24/18 09:00 04/23/18 08:59 03/26/18 08:51 Dextrose (Dextrose 50%) 25 ml Q30M PRN IV Hypoglycemia 03/23/18 14:45 04/22/18 14:44 Dextrose (Dextrose 50%) 50 ml Q30M PRN IV Hypoglycemia 03/23/18 14:45 04/22/18 14:44 Furosemide (Lasix) 40 mg EVERY 12 HOURS IV 03/25/18 21:00 04/24/18 20:59 03/26/18 08:50 Heparin Sodium (Porcine) (Heparin 5000 units/ml) 5,000 units EVERY 12 HOURS SUBQ 03/23/18 21:00 04/22/18 20:59 03/26/18 08:49 Levothyroxine Sodium (Synthroid) 25 mcg ACBREAKFAST ORAL 03/24/18 06:30 04/23/18 06:29 03/26/18 05:57 Lisinopril (Zestril) 10 mg DAILY ORAL 03/26/18 09:00 04/25/18 08:59 03/26/18 08:51 Lorazepam (Ativan 2mg/ml 1ml) 0.5 mg Q4H PRN IV For Anxiety 03/23/18 14:45 03/30/18 14:44 Magnesium Oxide (Mag-Ox 400mg) 400 mg BID ORAL 03/25/18 11:00 04/24/18 10:59 03/26/18 08:50 Morphine Sulfate (Morphine Sulfate) 2 mg Q4H PRN IVP severe pain 7-10 03/23/18 14:45 03/30/18 14:44 03/24/18 20:21 Nitroglycerin (Ntg) 0.4 mg Q5M X 3 DOSES PRN SL Prn Chest Pain 03/23/18 14:45 04/22/18 14:44 Ondansetron HCl (Zofran) 4 mg Q6H PRN IVP Nausea & Vomiting 03/23/18 14:45 04/22/18 14:44 Piperacillin Sod/ Tazobactam Sod 3.375 gm/Dextrose 110 ml @ 27.5 mls/hr EVERY 8 HOURS IVPB 03/23/18 17:00 03/28/18 16:59 03/26/18 05:58 Promethazine HCl/ Codeine (Phenergan with Codeine) 5 ml Q6H PRN ORAL cough 03/23/18 14:45 04/22/18 14:44 Spironolactone (Aldactone) 25 mg DAILY ORAL 03/26/18 09:00 04/25/18 08:59 03/26/18 08:51 Temazepam (Restoril) 15 mg HSPRN PRN ORAL Insomnia 03/23/18 14:45 03/30/18 14:44 Theophylline (Domenic-Dur) 100 mg EVERY 12 HOURS ORAL 03/23/18 21:00 04/22/18 20:59 03/26/18 08:51 Tropicamide (Mydriacyl) 1 drop TWICE A DAY BOTH EYES 03/25/18 09:00 04/24/18 08:59 03/26/18 08:50 Halina Hameed MD Mar 26, 2018 11:57
[2018-03-26 12:00] VITALS: BP 132/83
[2018-03-26 16:00] VITALS: BP 130/78
--- NOTE | 2018-03-26 19:36 | Internal Med Progress Note ---
Subjective Date of Service: Mar 26, 2018 Physician Name Antonio Anglin Attending Physician Charly aSndhu MD Current Medications Medications (Trade) Dose Ordered Sig/Marline Route PRN Reason Start Time Stop Time Status Last Admin Dose Admin Acetaminophen (Tylenol) 325 mg Q6H PRN ORAL Mild Pain/Temp > 100.5 03/24/18 21:45 04/23/18 21:44 Albuterol/ Ipratropium (Albuterol/ Ipratropium) 3 ml Q4H PRN HHN dyspnea 03/23/18 14:45 03/28/18 14:44 Brimonidine Tartrate (Alphagan) 1 drop THREE TIMES A DAY BOTH EYES 03/25/18 09:00 04/24/18 08:59 03/26/18 17:27 Carvedilol (Coreg) 6.25 mg EVERY 12 HOURS ORAL 03/23/18 21:00 04/22/18 20:59 03/26/18 08:51 Clopidogrel Bisulfate (Plavix) 75 mg DAILY ORAL 03/24/18 09:00 04/23/18 08:59 03/26/18 08:51 Dextrose (Dextrose 50%) 25 ml Q30M PRN IV Hypoglycemia 03/23/18 14:45 04/22/18 14:44 Dextrose (Dextrose 50%) 50 ml Q30M PRN IV Hypoglycemia 03/23/18 14:45 04/22/18 14:44 Furosemide (Lasix) 40 mg EVERY 12 HOURS IV 03/25/18 21:00 04/24/18 20:59 03/26/18 08:50 Heparin Sodium (Porcine) (Heparin 5000 units/ml) 5,000 units EVERY 12 HOURS SUBQ 03/23/18 21:00 04/22/18 20:59 03/26/18 08:49 Levothyroxine Sodium (Synthroid) 25 mcg ACBREAKFAST ORAL 03/24/18 06:30 04/23/18 06:29 03/26/18 05:57 Lisinopril (Zestril) 10 mg DAILY ORAL 03/26/18 09:00 04/25/18 08:59 03/26/18 08:51 Lorazepam (Ativan 2mg/ml 1ml) 0.5 mg Q4H PRN IV For Anxiety 03/23/18 14:45 03/30/18 14:44 Magnesium Oxide (Mag-Ox 400mg) 400 mg BID ORAL 03/25/18 11:00 04/24/18 10:59 03/26/18 17:27 Morphine Sulfate (Morphine Sulfate) 2 mg Q4H PRN IVP severe pain 7-10 03/23/18 14:45 03/30/18 14:44 03/24/18 20:21 Nitroglycerin (Ntg) 0.4 mg Q5M X 3 DOSES PRN SL Prn Chest Pain 03/23/18 14:45 04/22/18 14:44 Ondansetron HCl (Zofran) 4 mg Q6H PRN IVP Nausea & Vomiting 03/23/18 14:45 04/22/18 14:44 Piperacillin Sod/ Tazobactam Sod 3.375 gm/Dextrose 110 ml @ 27.5 mls/hr EVERY 8 HOURS IVPB 03/23/18 17:00 03/28/18 16:59 03/26/18 14:00 Promethazine HCl/ Codeine (Phenergan with Codeine) 5 ml Q6H PRN ORAL cough 03/23/18 14:45 04/22/18 14:44 Spironolactone (Aldactone) 25 mg DAILY ORAL 03/26/18 09:00 04/25/18 08:59 03/26/18 08:51 Temazepam (Restoril) 15 mg HSPRN PRN ORAL Insomnia 03/23/18 14:45 03/30/18 14:44 Theophylline (Domenic-Dur) 100 mg EVERY 12 HOURS ORAL 03/23/18 21:00 04/22/18 20:59 03/26/18 08:51 Tropicamide (Mydriacyl) 1 drop TWICE A DAY BOTH EYES 03/25/18 09:00 04/24/18 08:59 03/26/18 17:27 Allergies: Coded Allergies: No Known Allergies (Verified , 05/05/16) ROS Limited/Unobtainable: No Constitutional: Reports: no symptoms HEENT: Reports: no symptoms Cardiovascular: Reports: no symptoms Respiratory: Reports: shortness of breath Gastrointestinal/Abdominal: Reports: no symptoms Genitourinary: Reports: no symptoms Neurologic/Psychiatric: Reports: no symptoms Subjective 67 YO F admitted with dyspnea. Now COPD exacerbation and CHF. Cover for Int Med-Dr Sandhu. Await echocardiogram Objective Last Vital Signs Date Time Temp Pulse Resp B/P (MAP) Pulse Ox O2 Delivery O2 Flow Rate FiO2 03/26/18 16:00 61 03/26/18 16:00 98.2 18 130/78 (95) 96 03/26/18 09:10 Room Air 03/23/18 15:54 21 Laboratory Tests Test 03/26/18 06:51 White Blood Count 16.1 K/UL (4.8-10.8) H Red Blood Count 3.64 M/UL (4.20-5.40) L Hemoglobin 11.4 G/DL (12.0-16.0) L Hematocrit 33.5 % (37.0-47.0) L Mean Corpuscular Volume 92 FL (80-99) Mean Corpuscular Hemoglobin 31.3 PG (27.0-31.0) H Mean Corpuscular Hemoglobin Concent 34.0 G/DL (32.0-36.0) Red Cell Distribution Width 12.1 % (11.6-14.8) Platelet Count 294 K/UL (150-450) Mean Platelet Volume 6.8 FL (6.5-10.1) Neutrophils (%) (Auto) 79.3 % (45.0-75.0) H Lymphocytes (%) (Auto) 14.8 % (20.0-45.0) L Monocytes (%) (Auto) 5.6 % (1.0-10.0) Eosinophils (%) (Auto) 0.0 % (0.0-3.0) Basophils (%) (Auto) 0.4 % (0.0-2.0) Sodium Level 138 MMOL/L (136-145) Potassium Level 3.9 MMOL/L (3.5-5.1) Chloride Level 102 MMOL/L (98-107) Carbon Dioxide Level 28 MMOL/L (21-32) Anion Gap 8 mmol/L (5-15) Blood Urea Nitrogen 24 mg/dL (7-18) H Creatinine 1.4 MG/DL (0.55-1.30) H Estimat Glomerular Filtration Rate 45.8 mL/min (>60) Glucose Level 172 MG/DL (74-106) #H Calcium Level 8.9 MG/DL (8.5-10.1) Microbiology Date/Time Source Procedure Growth Status 03/24/18 22:00 Sputum Expectorated Gram Stain - Final Resulted 03/24/18 22:00 Sputum Expectorated Sputum Culture - Preliminary NORMAL UPPER RESPIRATORY JUAN AT 24 ... Resulted Intake and Output 03/25/18 03/26/18 19:00 07:00 Intake Total 617.5 ml 730.0 ml Balance 617.5 ml 730.0 ml Intake Oral 590 ml 500 ml IV Total 27.5 ml 110.0 ml Other 120 ml # Voids 1 3 # Bowel Movements 1 Objective General Appearance: WD/WN, no apparent distress, alert EENT: PERRL/EOMI, normal ENT inspection Neck: non-tender, normal alignment, supple, normal inspection Cardiovascular: normal peripheral pulses, normal rate, regular rhythm, no gallop/murmur, no JVD Respiratory/Chest: chest wall non-tender, lungs with few expiratory wheezes, no respiratory distress, no accessory muscle use Abdomen: normal bowel sounds, non tender, soft, no organomegaly, no mass Extremities: normal range of motion, non-tender 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 See cardiology consult note. Echocardiogram LVEF=35-40% (6) CAD (coronary artery disease) (7) COPD exacerbation Assessment & Plan: Continue to decrease IV solumedrol per pulmonary. Status: not improved Antonio Anglin MD Mar 26, 2018 19:36
[2018-03-26 20:00] VITALS: BP 127/70
--- NOTE | 2018-03-26 22:59 | General Progress Note ---
Assessment/Plan Problem List: (1) Anxiety disorder ICD Codes: F41.9 - Anxiety disorder, unspecified SNOMED: 846486286 Status: stable, progressing Assessment/Plan ativan prn provided ro/st Subjective Neurologic/Psychiatric: Reports: anxiety, depressed Allergies: Coded Allergies: No Known Allergies (Verified , 05/05/16) Objective Last 24 Hour Vital Signs Date Time Temp Pulse Resp B/P (MAP) Pulse Ox O2 Delivery O2 Flow Rate FiO2 03/26/18 21:38 65 127/70 03/26/18 16:00 61 03/26/18 16:00 98.2 62 18 130/78 (95) 96 72 03/26/18 12:00 72 03/26/18 12:00 97.5 72 18 132/83 (99) 98 72 03/26/18 09:10 Room Air 03/26/18 08:51 145/81 03/26/18 08:51 70 145/81 03/26/18 08:00 97.6 70 18 145/81 (102) 98 70 03/26/18 08:00 63 03/26/18 04:00 97.5 81 18 142/85 (104) 97 81 03/26/18 03:46 75 03/26/18 00:00 97.7 66 18 144/82 (102) 97 66 03/25/18 23:37 72 Intake and Output 03/25/18 03/26/18 19:00 07:00 Intake Total 617.5 ml 730.0 ml Balance 617.5 ml 730.0 ml Intake Oral 590 ml 500 ml IV Total 27.5 ml 110.0 ml Other 120 ml # Voids 1 3 # Bowel Movements 1 Laboratory Tests 03/26/18 06:51: White Blood Count 16.1H, Red Blood Count 3.64L, Hemoglobin 11.4L, Hematocrit 33.5L, Mean Corpuscular Volume 92, Mean Corpuscular Hemoglobin 31.3H, Mean Corpuscular Hemoglobin Concent 34.0, Red Cell Distribution Width 12.1, Platelet Count 294, Mean Platelet Volume 6.8, Neutrophils (%) (Auto) 79.3H, Lymphocytes ( %) (Auto) 14.8L, Monocytes (%) (Auto) 5.6, Eosinophils (%) (Auto) 0.0, Basophils (%) (Auto) 0.4, Sodium Level 138, Potassium Level 3.9, Chloride Level 102, Carbon Dioxide Level 28, Anion Gap 8, Blood Urea Nitrogen 24H, Creatinine 1.4H, Estimat Glomerular Filtration Rate 45.8, Glucose Level 172#H, Calcium Level 8.9 Height (Feet): 5 Height (Inches): 5.00 Weight (Pounds): 225 General Appearance: no apparent distress, alert, overweight Neurologic: oriented x 3, responsive, depressed affect MIPS Medication Reconciliation Is this a Psycho/Diag encounte: No Unhealthy Alcohol Use 431 (psycho/diag only) Patient was screened for unhealthy alcohol use today or within the past 2 years. Patient was NOT identified as an unhealthy alcohol user. Tobacco Use 226 (psycho/diag only) Patient was screened for tobacco use today or within the past 2 years. Patient was NOT identified as a tobacco user. BMI 128 (psycho/diag only) BMI was documented today or within the past year. BMI was outside normal parameters, and the patient received counseling. Depression 134,411,370 (psycho/diag only) Depression follow-up Plan Psychotherapy Other: Does this Patient have Dementi: No Vish Ornelas MD Mar 26, 2018 22:59
[2018-03-27] VITALS: BP 129/78
[2018-03-27 04:00] VITALS: BP 137/78
[2018-03-27 05:48] LABS: BASOPHILS % (AUTO) 0.2 % (0.0-2.0); EOSINOPHILS % (AUTO) 0.1 % (0.0-3.0); HEMATOCRIT 35.3 % (37.0-47.0); HEMOGLOBIN 11.7 G/DL (12.0-16.0); LYMPHOCYTES % (AUTO) 19.9 % (20.0-45.0); MEAN CORPUSCULAR VOLUME 93 FL (80-99); NEUTROPHILS % (AUTO) 72.9 % (45.0-75.0); PLATELET COUNT 289 K/UL (150-450); RED BLOOD COUNT 3.81 M/UL (4.20-5.40); RED CELL DISTRIBUTION WIDTH 11.8 % (11.6-14.8); WHITE BLOOD COUNT 13.9 K/UL (4.8-10.8)
[2018-03-27] MEDS: Levothyroxine 25mcg tab ORAL SCH (06:14)
[2018-03-27] MEDS: Piperacillin/Tazobactam 3.375 GM in D5W 110 ML IVPB SCH (06:15)
[2018-03-27 06:18] LABS: ANION GAP 6 mmol/L (5-15); BLOOD UREA NITROGEN 27 mg/dL (7-18); CALCIUM 8.8 MG/DL (8.5-10.1); CARBON DIOXIDE 32 MMOL/L (21-32); CHLORIDE 100 MMOL/L (98-107); CREATININE 1.4 MG/DL (0.55-1.30); POTASSIUM 3.6 MMOL/L (3.5-5.1); SODIUM 138 MMOL/L (136-145)
[2018-03-27 08:00] VITALS: BP 126/76
[2018-03-27] MEDS: Theophylline ER 100mg ORAL SCH (09:20)
[2018-03-27] MEDS: Tropicamide 1% Opth 15ml Soln BOTH EYES SCH (09:20)
[2018-03-27] MEDS: Carvedilol 6.25mg Tab ORAL SCH (09:20)
[2018-03-27] MEDS: Lisinopril 10mg tab ORAL SCH (09:20)
[2018-03-27] MEDS: Brimonidine 0.2% Opth Sol BOTH EYES SCH ×2 (09:20→12:22)
[2018-03-27] MEDS: Spironolactone 25mg tab ORAL SCH (09:21)
[2018-03-27] MEDS: Magnesium Oxide 400mg tab ORAL SCH (09:21)
[2018-03-27] MEDS: Heparin 5000 units/ml inj SUBQ SCH (09:25)
[2018-03-27] MEDS ORDERED: LISINOPRIL10 MG ORAL (10:53)
[2018-03-27] MEDS ORDERED: THEOPHYLLINE A100 MG ORAL (10:53)
[2018-03-27] MEDS ORDERED: AUGMENTIN 875-1 EAC1 ORAL (10:54)
[2018-03-27 12:00] VITALS: BP 120/73
--- NOTE | 2018-03-27 12:28 | General Progress Note ---
Assessment/Plan Problem List: (1) Anxiety disorder ICD Codes: F41.9 - Anxiety disorder, unspecified SNOMED: 203917295 Status: stable, progressing Assessment/Plan ativan prn provided ro/st Subjective Neurologic/Psychiatric: Reports: anxiety, depressed Allergies: Coded Allergies: No Known Allergies (Verified , 05/05/16) Objective Last 24 Hour Vital Signs Date Time Temp Pulse Resp B/P (MAP) Pulse Ox O2 Delivery O2 Flow Rate FiO2 03/27/18 12:00 97.3 64 18 120/73 (89) 94 64 03/27/18 09:20 126/76 03/27/18 09:20 72 126/76 03/27/18 09:00 Room Air 03/27/18 08:00 97.1 66 18 126/76 (93) 94 72 03/27/18 08:00 68 03/27/18 04:00 97.1 72 19 137/78 (97) 96 72 03/27/18 04:00 59 03/27/18 00:00 60 03/27/18 00:00 97.5 65 18 129/78 (95) 98 65 03/26/18 21:38 65 127/70 03/26/18 21:00 Room Air 03/26/18 20:00 97.2 67 18 127/70 (89) 94 67 03/26/18 20:00 73 03/26/18 16:00 61 03/26/18 16:00 98.2 62 18 130/78 (95) 96 72 Intake and Output 03/26/18 03/27/18 18:59 06:59 Intake Total 600 ml 250 ml Balance 600 ml 250 ml Intake Oral 600 ml 250 ml # Voids 3 4 # Bowel Movements 1 Laboratory Tests 03/27/18 05:00: White Blood Count 13.9H, Red Blood Count 3.81L, Hemoglobin 11.7L, Hematocrit 35.3L, Mean Corpuscular Volume 93, Mean Corpuscular Hemoglobin 30.7, Mean Corpuscular Hemoglobin Concent 33.2, Red Cell Distribution Width 11.8, Platelet Count 289, Mean Platelet Volume 6.8, Neutrophils (%) (Auto) 72.9, Lymphocytes (% ) (Auto) 19.9L, Monocytes (%) (Auto) 7.0, Eosinophils (%) (Auto) 0.1, Basophils (%) (Auto) 0.2, Sodium Level 138, Potassium Level 3.6, Chloride Level 100, Carbon Dioxide Level 32, Anion Gap 6, Blood Urea Nitrogen 27H, Creatinine 1.4H, Estimat Glomerular Filtration Rate 45.8, Glucose Level 208H, Calcium Level 8.8, Troponin I 0.029, Pro-B-Type Natriuretic Peptide 1078H Height (Feet): 5 Height (Inches): 5.00 Weight (Pounds): 225 General Appearance: no apparent distress, alert Neurologic: oriented x 3, responsive, depressed affect Vish Ornelas MD Mar 27, 2018 12:28
--- NOTE | 2018-03-30 09:37 | Discharge Summary ---
Discharge Summary Discharge Summary _ DATE OF ADMISSION: 03/23/2018 DATE OF DISCHARGE: 03/27/2018 REASON FOR ADMISSION: 67 years old female with past medical history of COPD, hypertension, CVA, CAD, came to emergency room for evaluation with complaints of shortness of breath and cough for 1 week. Cough was reported as productive with yellow phlegm. No fever, no chills. No chest pain. No sick contacts or recent traveling. Vital signs revealed tachypnea. Pulse oximetry was stable on room air.. Laboratory workup revealed mild leukocytosis WBC 11.8 ,stable hemoglobin and hematocrit. Chemistry showed BUN less than 1 and creatinine 1.5. Troponin negative. Pro BNP 2020. EKG revealed normal sinus rhythm, no acute ischemic changes. Urinalysis revealed no evidence of UTI. Chest x-ray revealed cardiomegaly , but no acute cardiopulmonary pathology. Patient received diuresis and empiric antibiotics in emergency department. Patient was admitted for further management with diagnosis of COPD, CHF exacerbation, renal insufficiency. CONSULTANTS: medical concierge Dr. Gomes pulmonary Dr. Hameed psychiatrist [facility] COURSE: Patient admitted to telemetry floor. Search Engine Optimization Specialist followed . Repeated troponin was negative . Echocardiogram revealed ejection fraction of 35-40% with global left ventricular hypokinesis. Mild left ventricular hypertrophy. Moderate to severe mitral regurgitation. Grade 2 diastolic dysfunction. Patient started on diuresis with close monitoring of volumes and cardiorenal parameters . Anti-failure medication regimen with beta jose, NEEL inhibitor ,Aldactone and Lasix continued. Patient will benefit from prophylactic defibrillator implantation. Outpatient follow up with medical concierge for further management. Pro BNP trended down do 1078 prior to discharge. Blood pressure was managed with current regimen and remained stable. Patient with history of coronary artery disease and CVA. Dual antiplatelet therapy with Aspirin and Plavix and beta jose were continued. Supplemental oxygen provided to keep pulse oximetry above 90%. Pulmonary toilet provided with nebulizing therapy around the clock and as needed. Patient was started on short course off intravenous steroids with fast tapering down. Sputum culture was negtaive. Blood culture were negative. Patient was started on empiric antibiotic. CXR revealed . No acute cardiopulmonary pathology Trial of theophylline started Antitussive provided as needed DVT prophylaxis provided. Hemoglobin and hematocrit remained stable. Synthroid was continued. Renal parameters and electrolytes were closely monitored. Electrolytes were corrected as needed. Prior to discharge BU and 27, creatinine 1.4. Patient likely had chronic renal insufficiency . Psychiatrist followed. Psychiatrist diagnosed patient with anxiety disorder. Reality orientation and supportive therapy provided. Anxiolytic was on board as needed. FINAL DIAGNOSES: Exacerbation of congestive heart failure Cardiomyopathy with ejection fraction 35% Acute bronchitis COPD exacerbation Hypertension History of CVA History of coronary artery disease Morbid obesity Hypothyroidism Anxiety disorder Chronic renal insufficiency. DISCHARGE MEDICATIONS: See Medication Reconciliation list. DISCHARGE INSTRUCTIONS: Patient was discharged home with home health services. Follow up with primary care provider in one week. I have been assigned to dictate discharge summary for this account. I was not involved in the patient's management. Jolie Cordova NP Mar 30, 2018 09:37
== END 2018-03-27 13:07 | disposition home health service (06) | DRG 292 ==
LOC: EMR 13:15 → 2E 14:26 → EDBEDREQ 14:56 → 2E 15:36
DX: I13.0 Hypertensive heart and chronic kidney disease with heart failure and stage 1 through stage 4 chronic kidney disease, or unspecified chronic kidney disease (principal); J44.1 Chronic obstructive pulmonary disease with (acute) exacerbation; I69.351 Hemiplegia and hemiparesis following cerebral infarction affecting right dominant side; J44.0 Chronic obstructive pulmonary disease with (acute) lower respiratory infection; N18.9 Chronic kidney disease, unspecified; I50.9 Heart failure, unspecified; I25.10 Atherosclerotic heart disease of native coronary artery without angina pectoris; Z79.82 Long term (current) use of aspirin; E03.9 Hypothyroidism, unspecified; E78.00 Pure hypercholesterolemia, unspecified; Z79.02 Long term (current) use of antithrombotics/antiplatelets; F41.9 Anxiety disorder, unspecified; I42.9 Cardiomyopathy, unspecified; J20.9 Acute bronchitis, unspecified; E66.01 Morbid (severe) obesity due to excess calories; Z87.891 Personal history of nicotine dependence
CPT/HCPCS: 36415; 71045; 80048; 80053; 81003; 82378; 82550; 82553; 82607; 82746; 83540; 83550; 83605; 83615; 83735; 83880; 84100; 84484; 85007; 85025; 85044; 85060; 85610; 85651; 85730; 86140; 87040; 87070; 87205; 93005; 93306; 94640; 96374; 99284; 99285

== ENCOUNTER 2018-06-22 13:51 | Inpatient (IN) | payer MEDICARE, MEDICAID ==
[~2018-06-22] VITALS: Ht 165.1 cm; Wt 100.2 kg
[~2018-06-22 13:51] MED LIST changes: +AUGMENTIN 875-1 EAC1 ORAL; +LISINOPRIL10 MG ORAL; +THEOPHYLLINE A100 MG ORAL
--- NOTE | 2018-06-22 14:13 | NUR ---
ED Nurse Note: Pt came into the ER w/ complaints of SOB x 3 days. Pt states that she has been having trouble sleeping. Pt denies pain. A + O x4. Ambulatory. Skin warm to touch. Sating at 98% on RA upon arrival.
[2018-06-22 14:14] VITALS: BP 147/91
--- NOTE | 2018-06-22 14:26 | Emergency Room Report ---
History of Present Illness General Chief Complaint: Dyspnea/Respdistress Source: Patient Present Illness HPI The patient presents with several days of dyspnea on exertion, chest pain and orthopnea. She is taking Lasix but she feels is not working. She is a little bit of swelling in her ankles but it's mainly shortness of breath and chest pain that is bothering her. The pain is rated 7/10 and pressure left-sided radiating to her left shoulder. She denies any palpitations, nausea, vomiting or diarrhea. There is no dysuria. She also denies fevers or chills. Patient has a history of congestive heart failure. The patient's complaining about blurred vision and also dryness of her eyes. She thinks that it may be that her eyes are not closing properly while she is sleeping. She denies any other weakness in her body at this time. Allergies: Coded Allergies: No Known Allergies (Verified , 06/22/18) Patient History Past Medical History: see triage record Social History: Denies: smoking, alcohol use, drug use Social History Narrative from home Reviewed Nursing Documentation: PMH: Agreed; PSxH: Agreed Nursing Documentation-PMH Past Medical History: No History, Except For Hx Cardiac Problems: Yes - CHF Hx Hypertension: Yes Hx Pacemaker: No Hx COPD: Yes Hx Diabetes: No Hx Cancer: No Hx Gastrointestinal Problems: No Hx Neurological Problems: No Hx Cerebrovascular Accident: Yes Hx Neurologic Surgery: No Review of Systems All Other Systems: negative except mentioned in HPI Physical Exam Vital Signs Date Time Temp Pulse Resp B/P (MAP) Pulse Ox O2 Delivery O2 Flow Rate FiO2 06/22/18 13:54 97.9 87 16 146/92 94 Room Air 06/22/18 14:14 98 Sp02 EP Interpretation: reviewed, abnormal - Interpreted as low by me General Appearance: well appearing, alert, GCS 15, obese Head: normocephalic Eyes: bilateral eye Scleral Injection, bilateral eye other - disconjugate gaze ENT: moist mucus membranes Neck: supple Respiratory: lungs clear, normal breath sounds, decreased breath sounds Cardiovascular #1: regular rate, rhythm, edema - Trace to 1+ edema bilaterally pretibial Cardiovascular #2: 2+ radial (R) Gastrointestinal: normal inspection, normal bowel sounds, non tender, no mass, non-distended Musculoskeletal: back normal, gait/station normal, normal range of motion Neurologic: alert, oriented x3, motor strength/tone normal, DTRs symmetric, sensory intact, cerebellar normal, normal gait, speech normal Psychiatric: mood/affect normal Skin: normal inspection, warm/dry Medical Decision Making Diagnostic Impression: Primary Impression: ACS (acute coronary syndrome) Additional Impression: CHF exacerbation Qualified Codes: I50.33 - Acute on chronic diastolic (congestive) heart failure ER Course Patient presents with chest pain at this began exertion and orthopnea. Differential includes acute microinfarction, congestive heart failure, acute coronary syndrome amongst others. The blurred vision may be that her blood sugar is abnormal at this time. The patient will be evaluated with EKG, chest x -ray and labs. The patient is placed on a monitoring and evaluation advisor. The patient will be given aspirin, Nitropaste, Lasix, Zofran and morphine. A Baltazar catheter is placed EKG with LAE. CXR CHF and inc cor. Increased BUN and BNP. Initial troponin neg. Diuresing. Pain improved with morphine. Admit tele Dr. Sandhu. Laboratory Tests Test 06/22/18 14:25 White Blood Count 10.3 K/UL (4.8-10.8) Red Blood Count 4.44 M/UL (4.20-5.40) Hemoglobin 12.9 G/DL (12.0-16.0) Hematocrit 39.8 % (37.0-47.0) Mean Corpuscular Volume 90 FL (80-99) Mean Corpuscular Hemoglobin 29.1 PG (27.0-31.0) Mean Corpuscular Hemoglobin Concent 32.5 G/DL (32.0-36.0) Red Cell Distribution Width 14.1 % (11.6-14.8) Platelet Count 217 K/UL (150-450) Mean Platelet Volume 7.1 FL (6.5-10.1) Neutrophils (%) (Auto) 69.9 % (45.0-75.0) Lymphocytes (%) (Auto) 22.6 % (20.0-45.0) Monocytes (%) (Auto) 5.4 % (1.0-10.0) Eosinophils (%) (Auto) 1.2 % (0.0-3.0) Basophils (%) (Auto) 0.9 % (0.0-2.0) Prothrombin Time 10.3 SEC (9.30-11.50) Prothrombin Time INR 1.0 (0.9-1.1) PTT 29 SEC (23-33) Urine Color Pale yellow Urine Appearance Clear Urine pH 7 (4.5-8.0) Urine Specific [place] 1.010 (1.005-1.035) Urine Protein Negative (NEGATIVE) Urine Glucose (UA) Negative (NEGATIVE) Urine Ketones Negative (NEGATIVE) Urine Blood Negative (NEGATIVE) Urine Nitrite Negative (NEGATIVE) Urine Bilirubin Negative (NEGATIVE) Urine Urobilinogen 4 MG/DL (0.0-1.0) H Urine Leukocyte Esterase Negative (NEGATIVE) Sodium Level 137 MMOL/L (136-145) Potassium Level 4.4 MMOL/L (3.5-5.1) Chloride Level 101 MMOL/L (98-107) Carbon Dioxide Level 28 MMOL/L (21-32) Anion Gap 8 mmol/L (5-15) Blood Urea Nitrogen 26 mg/dL (7-18) H Creatinine 1.3 MG/DL (0.55-1.30) Estimate Glomerular Filtration Rate 49.7 mL/min (>60) Glucose Level 105 MG/DL (74-106) Calcium Level 9.4 MG/DL (8.5-10.1) Total Bilirubin 0.8 MG/DL (0.2-1.0) Aspartate Amino Transferase (AST) 35 U/L (15-37) Alanine Aminotransferase (ALT) 26 U/L (12-78) Alkaline Phosphatase 127 U/L (46-116) H Total Creatine Kinase 219 U/L (26-308) Troponin I 0.006 ng/mL (0.000-0.056) Pro-B-Type Natriuretic Peptide 5056 pg/mL (0-125) H Total Protein 8.8 G/DL (6.4-8.2) H Albumin 3.4 G/DL (3.4-5.0) Globulin 5.4 g/dL Albumin/Globulin Ratio 0.6 (1.0-2.7) L EKG Diagnostic Results Rate: normal Rhythm: NSR ST Segments: no acute changes - NSSTTW changes LAE ASA given to the pt in ED: Yes Rhythm Strip Diag. Results EP Interpretation: yes Rhythm: NSR, no PVC's, no ectopy Chest X-Ray Diagnostic Results Chest X-Ray Diagnostic Results : Chest X-Ray Ordered: Yes # of Views/Limited/Complete: 1 View Indication: Other EP Interpretation: Yes Interpretation: no effusion, no pneumothorax, other - CHF and inc cor Impression: Other Electronically Signed by: Electronically signed by Ricardo Coker MD Last Vital Signs Date Time Temp Pulse Resp B/P (MAP) Pulse Ox O2 Delivery O2 Flow Rate FiO2 06/22/18 16:46 97.5 82 19 154/87 97 Room Air 98 Status: improved Disposition: ADMITTED INPATIENT Condition: Serious Ricardo Coker MD Jun 22, 2018 14:26
[2018-06-22] MEDS ORDERED: Nitroglycerin 2% oint pkt TOPIC ONE (14:30)
[2018-06-22] MEDS ORDERED: RHOPRESSA2.5 ML OP (14:34)
[2018-06-22] MEDS ORDERED: ALPHAGAN P5 M2 OP (14:34)
[2018-06-22] MEDS ORDERED: CLOPIDOGREL75 MG ORAL (14:34)
[2018-06-22] MEDS ORDERED: LIPITOR80 MG ORAL (14:34)
[2018-06-22] MEDS ORDERED: SYNTHROID25 MCG ORAL (14:34)
[2018-06-22] MEDS ORDERED: VITAMIN D400 INTLU ORAL (14:34)
[2018-06-22] MEDS ORDERED: LEVOTHYROXINE200 MCG IV (14:34)
[2018-06-22] MEDS ORDERED: SYMBICORT 16010.2 G1 IH (14:34)
[2018-06-22] MEDS ORDERED: ASPIR 8181 MG ORAL (14:34)
[2018-06-22] MEDS ORDERED: TIZANIDINE HCL2 M2 PO (14:34)
[2018-06-22] MEDS ORDERED: FUROSEMIDE40 MG/5 ML ORAL (14:34)
[2018-06-22 14:45] LABS: APPEARANCE,URINE CLEAR; BILIRUBIN, URINE NEGATIVE (NEGATIVE); COLOR,URINE PALE YELLOW; GLUCOSE, URINE (UA) NEGATIVE (NEGATIVE); KETONES,URINE NEGATIVE (NEGATIVE); LEUKOCYTE ESTERASE ,URINE NEGATIVE (NEGATIVE); NITRITE,URINE NEGATIVE (NEGATIVE); PH,URINE 7 (4.5-8.0); PROTEIN,URINE NEGATIVE (NEGATIVE); UROBILINOGEN,URINE 4 MG/DL (0.0-1.0)
[2018-06-22 14:46] LABS: BASOPHILS % (AUTO) 0.9 % (0.0-2.0); EOSINOPHILS % (AUTO) 1.2 % (0.0-3.0); HEMATOCRIT 39.8 % (37.0-47.0); HEMOGLOBIN 12.9 G/DL (12.0-16.0); LYMPHOCYTES % (AUTO) 22.6 % (20.0-45.0); MEAN CORPUSCULAR VOLUME 90 FL (80-99); MONOCYTES % (AUTO) 5.4 % (1.0-10.0); NEUTROPHILS % (AUTO) 69.9 % (45.0-75.0); PLATELET COUNT 217 K/UL (150-450); RED BLOOD COUNT 4.44 M/UL (4.20-5.40); RED CELL DISTRIBUTION WIDTH 14.1 % (11.6-14.8); WHITE BLOOD COUNT 10.3 K/UL (4.8-10.8)
--- NOTE | 2018-06-22 14:55 | NUR ---
ED Nurse Note: Xray at the bedside.
[2018-06-22 14:59] LABS: ANION GAP 8 mmol/L (5-15); BLOOD UREA NITROGEN 26 mg/dL (7-18); CALCIUM 9.4 MG/DL (8.5-10.1); CARBON DIOXIDE 28 MMOL/L (21-32); CHLORIDE 101 MMOL/L (98-107); CREATININE 1.3 MG/DL (0.55-1.30); POTASSIUM 4.4 MMOL/L (3.5-5.1); SODIUM 137 MMOL/L (136-145)
[2018-06-22 15:09] LABS: ALANINE AMINOTRANSFERASE 26 U/L (12-78); ALBUMIN 3.4 G/DL (3.4-5.0); ALBUMIN/GLOBULIN RATIO 0.6 (1.0-2.7); ALKALINE PHOSPHATASE 127 U/L (46-116); ASPARTATE AMINO TRANSFERASE 35 U/L (15-37); BILIRUBIN,TOTAL 0.8 MG/DL (0.2-1.0); CREATINE KINASE 219 U/L (26-308)
[2018-06-22] MEDS ORDERED: Morphine Sulfate 4mg/ml Inj (IV USE ONLY) IVP ONE (15:45)
--- NOTE | 2018-06-22 15:49 | Diagnostic Imaging Report ---
Indication: Shortness of breath Technique: One view of the chest Comparison: 03/23/2018 Findings: The heart is enlarged. No definite infiltrates, effusions, or congestion. No significant interim change Impression: Cardiomegaly. No definite acute process
--- NOTE | 2018-06-22 16:21 | NUR ---
ED Nurse Note: Gave telephone report to JERZY George. Bed unavailable. Will try again.
--- NOTE | 2018-06-22 16:47 | NUR ---
ED Nurse Note: Pt transferred to tele unit. No acute distress noted. Left Er w/ all belongings.
[2018-06-22] MEDS ORDERED: Miralax 17gm pkt ORAL PRN (17:15)
--- NOTE | 2018-06-22 18:25 | NUR ---
CASE MANAGEMENT: INITIAL REVIEW 06/22/2018 68 YO F PRESENTED TO OUR ED FROM HOME CC: DYSPNEA PMHx: CHF. COPD. CVA. SI:ACS. CHF. T 97.9 HR 87 RR 16 B/P 146/92 SATS 94% ON RA BUN 26 ALP 127 BNP 5056 IS: ASA PO X1 NITRO TOP X1 LASIX IV X1 PATIENT ADMITTED TO TELE 06/22/2018 @ 1434 DCP: PATIENT TO BE DISCHARGED TO HOME ONCE MEDICALLY CLEARED. PLAN OF CARE: 2D ECHO VENOUS DUPLEX CXR Addendum: 06/22/18 at 2041 by Shelley De Jesus CM INTERQUAL MET
--- NOTE | 2018-06-22 19:30 | NUR ---
NURSE NOTES: Received report from Vinh Echeverria RN. Pt is resting in the bed w/o distress in RA, and is able to make needs known. SR in the monitor. Baltazar cath. is applied, patent and draining. Pt was instructed to use call light when the help is needed, pt verbalized the understanding. Bed alarm on, bed in lowest position with 2 side rails up, and breaks are engaged. Call light and side table are w/in reach. Will continue to monitor.
--- NOTE | 2018-06-22 19:53 | History & Physical ---
History and Physical History & Physicial Dictated for Int Med-DR Sandhu no. [id number]. Antonio Anglin MD Jun 22, 2018 19:53
--- NOTE | 2018-06-22 19:53 | NUR ---
HAND-OFF: Report given to BRETT Dupont RN.
[2018-06-22 20:00] VITALS: BP 131/63
[2018-06-22] MEDS: Heparin 5000 units/ml inj SUBQ SCH (21:29)
--- NOTE | 2018-06-22 22:45 | History and Physical Report ---
DATE OF ADMISSION: 06/22/2018 CHIEF COMPLAINT: The patient is a 68-year-old female, who presents with chief complaint of shortness of breath and chest pain. HISTORY OF PRESENT ILLNESS: The patient was admitted to [facility] from 03/23/2018 to 03/27/2018. Please see history and physical and discharge summary dictated at that time. The patient presented to [facility] complaining of 5-day history of shortness of breath and chest pain. Shortness of breath has gotten increasingly worse. The patient states it is worse when she tries to move. The patient also complains of some swelling of her ankles. The patient then began to experience chest pain earlier today. Chest pain is substernal and radiates to the left shoulder. The patient presented to [facility]. The patient is admitted with chest pain to rule out acute coronary syndrome and congestive heart failure. REVIEW OF SYSTEMS: CONSTITUTIONAL: The patient denies weight loss or gain. The patient denies fever or chills. HEENT: The patient denies ear or throat pain. The patient denies headache. CARDIOVASCULAR: The patient complains of chest pain as above. The patient denies palpitations. CHEST: The patient denies wheeze or shortness of breath. ABDOMEN: The patient denies nausea, vomiting, diarrhea, or constipation. NEUROMUSCULAR: The patient denies seizures or generalized weakness. GENITOURINARY: The patient denies dysuria or increased frequency of urination. PAST MEDICAL HISTORY: Significant for: 1. Congestive heart failure. 2. History of cerebrovascular accident in 2008. 3. Hypertension. 4. Right hemiparesis. 5. Coronary artery disease. PAST SURGICAL HISTORY: The patient denies. CURRENT MEDICATIONS: 1. Aspirin 81 mg one tablet p.o. daily. 2. Lipitor 80 mg p.o. nightly. 3. Alphagan one drop in both eyes nightly. 4. Symbicort 160/4.5 mcg one puff p.o. twice daily. 5. Carvedilol 6.25 mg one tablet p.o. twice daily. 6. Clopidogrel 75 mg p.o. daily. 7. Furosemide 40 mg p.o. daily. 8. [place] 5/325 mg one tablet p.o. q.6 h. p.r.n. 9. Levoxyl 25 mcg p.o. daily. 10. Lisinopril 10 mg p.o. daily. 11. Spironolactone 25 mg p.o. daily. 12. 100 mg p.o. twice daily. 13. Valsartan 80 mg p.o. daily. ALLERGIES: No known drug allergies. SOCIAL HISTORY: The patient is single and lives with her adult daughter. The patient denies tobacco use, having quit in April of 2017. The patient admits to occasional alcohol use. PHYSICAL EXAMINATION: VITAL SIGNS: Temperature 97.9, respirations 16, pulse 87, and blood pressure 146/90. GENERAL: The patient is a well-developed and well-nourished female, in no apparent distress. HEENT: Eyes, pupils are equal and responsive to light and accommodation. Extraocular movements are intact. NECK: Supple without lymphadenopathy. CHEST: Lungs are clear to auscultation bilaterally without wheezes or rales. CARDIOVASCULAR: Regular rhythm and rate. S1 and S2 normal without murmurs, rubs, or gallops. ABDOMEN: Soft, nontender, and nondistended. Positive bowel sounds. No evidence of hepatosplenomegaly. Currently, no rebound or guarding noted. EXTREMITIES: Negative for clubbing, cyanosis, or edema. RECTAL/GENITAL: Refused. NEUROLOGIC: Cranial nerves II through XII are grossly intact without focal deficits. Motor strength is 5/5 bilaterally. Deep tendon reflexes are 2+ plantar. LABORATORY STUDIES: WBC 10.3, hemoglobin 12.9, hematocrit 39.8, and platelets 270,000. Sodium 137, potassium 4.4, chloride 101, CO2 28, BUN 26, and creatinine 1.3. Glucose 105. BNP elevated at 5056. Troponin normal at 0.006. Chest x-ray was reported as cardiomegaly with no acute disease. ASSESSMENT: This is a 68-year-old female with: 1. Shortness of breath. 2. Chest pain. 3. Hypertension. 4. Congestive heart failure. 5. Cerebrovascular disease. 6. Hypothyroidism. 7. Coronary artery disease. 8. Right hemiparesis. TREATMENT: 1. Shortness of breath/chest pain. A Cardiology consultation has been obtained with Dr. Gomes. We will follow recommendation of Cardiology. Serial troponin levels will be performed. 2. Hypertension. Continue lisinopril and Coreg as above. 3. History of congestive heart failure. As above, Cardiology consultation has been obtained with Dr. Kendall Gomes. An echocardiogram is pending. 4. Cerebrovascular disease. 5. Hypothyroidism. Continue Levoxyl as above. 6. Coronary artery disease. 7. Right hemiparesis. Antonio Anglin M.D. DR: CHRISTINE JOB#: [id number] CC:
[2018-06-22 23:36] VITALS: BP 123/74
--- NOTE | 2018-06-23 01:59 | NUR ---
NURSE NOTES: New joi bed was provided and pt was assisted to move to the bed. Also, pt walked to use bathroom with assist, but no BM. Pt tolerated all activities w/o distress in RA. NC and oxygen supply is ready to use in case pt needs it. Will continue to monitor.
[2018-06-23 04:00] VITALS: BP 153/78
[2018-06-23] MEDS: Levothyroxine 25mcg tab ORAL SCH (05:39)
[2018-06-23 07:09] LABS: BASOPHILS % (AUTO) 0.5 % (0.0-2.0); EOSINOPHILS % (AUTO) 1.1 % (0.0-3.0); HEMATOCRIT 41.4 % (37.0-47.0); HEMOGLOBIN 13.5 G/DL (12.0-16.0); LYMPHOCYTES % (AUTO) 13.7 % (20.0-45.0); MEAN CORPUSCULAR VOLUME 90 FL (80-99); MONOCYTES % (AUTO) 4.2 % (1.0-10.0); NEUTROPHILS % (AUTO) 80.5 % (45.0-75.0); PLATELET COUNT 221 K/UL (150-450); WHITE BLOOD COUNT 13.3 K/UL (4.8-10.8)
--- NOTE | 2018-06-23 07:10 | NUR ---
HAND-OFF: Report given to Joyce Lawrence RN. Stable condition.
[2018-06-23 07:20] LABS: ALBUMIN 3.6 G/DL (3.4-5.0); ANION GAP 10 mmol/L (5-15); BLOOD UREA NITROGEN 25 mg/dL (7-18); CALCIUM 9.4 MG/DL (8.5-10.1); CARBON DIOXIDE 27 MMOL/L (21-32); CHLORIDE 99 MMOL/L (98-107); CREATININE 1.2 MG/DL (0.55-1.30); POTASSIUM 4.2 MMOL/L (3.5-5.1); SODIUM 136 MMOL/L (136-145)
[2018-06-23 07:38] VITALS: BP 142/80
--- NOTE | 2018-06-23 07:40 | NUR ---
NURSE NOTES: pt awake alert, no distress. no sob. call light within reach. will monitor.
[2018-06-23] MEDS: Heparin 5000 units/ml inj SUBQ SCH ×2 (08:11→21:42)
[2018-06-23] MEDS ORDERED: Levothyroxine 25mcg tab ORAL SCH (09:00)
--- NOTE | 2018-06-23 10:48 | Diagnostic Imaging Report ---
Indication: Cough Technique: One view of the chest Comparison: 06/22/2018 Findings: Body habitus limits evaluation. The heart is mildly enlarged. No definite infiltrates, effusions, congestion. There is central bronchial wall thickening which appears chronic. Findings are unchanged Impression: Unchanged, over one day, findings as above.
--- NOTE | 2018-06-23 11:58 | Consultation ---
History of Present Illness General Date patient seen: Jun 23, 2018 Chief Complaint: Dyspnea/Respdistress Present Illness HPI 68 year old female with hx of COPD, CHF, CAD, HTN presented to ER with several days of dyspnea on exertion, chest pain and orthopnea. She is taking Lasix but she feels is not working. She is a little bit of swelling in her ankles but it' s mainly shortness of breath and chest pain that is bothering her. Her CXR showed cardiomegaly and her BNP was around 5k. She is admitted to telemetry for further evaluation. Allergies: Coded Allergies: No Known Allergies (Verified , 06/22/18) Medication History Scheduled Amoxicillin/Potassium Clav 875-125* (Augmentin 875-125 Tablet*), 1 TAB ORAL TWICE A DAY Aspirin Ec* (Aspirin Ec*), 81 MG ORAL DAILY Aspirin* (Aspir 81*), 81 MG ORAL DAILY, (Reported) Atorvastatin (Lipitor), 10 MG ORAL BEDTIME, (Reported) Atorvastatin Calcium* (Lipitor*), 20 MG ORAL BEDTIME Carvedilol* (Carvedilol*), 6.25 MG ORAL EVERY 12 HOURS, (Reported) Cetirizine Hcl* (Zyrtec*), 10 MG ORAL DAILY, (Reported) Clopidogrel* (Clopidogrel*), 75 MG ORAL DAILY, (Reported) Clopidogrel* (Clopidogrel*), 75 MG ORAL DAILY, (Reported) Furosemide (Furosemide), 40 MG ORAL DAILY, (Reported) Furosemide* (Lasix*), 40 MG ORAL DAILY, (Reported) Furosemide* (Lasix*), 20 MG ORAL DAILY, (Reported) Levothyroxine Sodium* (Synthroid*), 25 MCG ORAL DAILY Levothyroxine Sodium* (Levothyroxine Sodium), 25 MCG IV DAILY, (Reported) Levothyroxine Sodium* (Synthroid*), 25 MCG ORAL DAILY, (Reported) Lisinopril* (Lisinopril*), 10 MG ORAL DAILY Spironolactone (Aldactone), 25 MG ORAL DAILY Theophylline (Theodur*), 100 MG ORAL EVERY 12 HOURS Tizanidine Hcl (Tizanidine Hcl), 2 MG PO EVERY 12 HOURS, (Reported) Tobramycin/Dexamethasone (Tobradex Eye Drops), 5 ML OP TWICE A DAY Valsartan (Diovan), 80 MG ORAL DAILY, (Reported) Vitamin D (Vitamin D3), 400 UNITS ORAL DAILY, (Reported) Vitamin D (Vitamin D3), 1,000 UNITS ORAL DAILY, (Reported) Scheduled PRN Acetaminophen (Tylenol), 650 MG ORAL Q6H PRN for Prn Pain/Headache/Temp > 101 Hydrocodone Bit/Acetaminophen 5-325* ([place] 5-325*), 1 TAB ORAL BID PRN for For Pain, (Reported) Miscellaneous Medications Brimonidine Tartrate (Alphagan P), 5 ML OP, (Reported) Budesonide/Formoterol Fumarate (Symbicort 160-4.5 Mcg Inhaler), 1 PUFF IH, ( Reported) Clobetasol Propionate (Clobetasol Propionate), 0.5 GM MC, (Reported) Netarsudil Mesylate (Rhopressa), 2.5 ML OP, (Reported) Patient History Healthcare decision maker Resuscitation status Full Code Advanced Directive on File Past Medical/Surgical History Past Medical/Surgical History: (1) Shingles (2) Goiter (3) CAD (coronary artery disease) (4) History of CVA (cerebrovascular accident) (5) COPD (chronic obstructive pulmonary disease) (6) Hypercholesteremia (7) Hypothyroidism (8) HTN (hypertension) (9) Hemiparesis affecting right side as late effect of cerebrovascular accident (CVA) (10) Anxiety disorder Review of Systems Eye: Reports: no symptoms ENT: Reports: no symptoms Respiratory: Reports: no symptoms Cardiovascular: Reports: no symptoms All Other Systems: negative except mentioned in HPI Physical Exam General Appearance: WD/WN, overweight Lines, tubes and drains: peripheral HEENT: normocephalic, atraumatic Neck: non-tender, supple Respiratory/Chest: chest wall non-tender, lungs clear, normal breath sounds Cardiovascular/Chest: normal peripheral pulses Abdomen: normal bowel sounds, hyperactive bowel sounds Extremities: normal range of motion, non-tender Last 24 Hour Vital Signs Date Time Temp Pulse Resp B/P (MAP) Pulse Ox O2 Delivery O2 Flow Rate FiO2 06/23/18 09:00 Room Air 06/23/18 08:55 81 16 Room Air 21 06/23/18 07:38 94 06/23/18 07:38 98.4 89 18 142/80 (100) 98 06/23/18 04:00 98.4 87 18 153/78 (103) 98 06/23/18 03:39 82 06/22/18 23:39 89 06/22/18 23:36 99.5 81 20 123/74 (90) 97 06/22/18 23:22 98 Room Air 21 06/22/18 21:00 Room Air 06/22/18 20:00 97.2 82 20 131/63 (85) 92 06/22/18 19:48 84 06/22/18 19:37 Room Air 06/22/18 16:46 97.5 82 19 154/87 97 Room Air 98 06/22/18 16:10 97.9 06/22/18 14:35 151/80 06/22/18 14:14 84 16 Room Air 98 06/22/18 14:14 97.9 84 16 147/91 98 Room Air 06/22/18 13:54 97.9 87 16 146/92 94 Room Air Intake and Output 06/22/18 06/23/18 18:59 06:59 Intake Total 240 ml 250 ml Output Total 500 ml 2000 ml Balance -260 ml -1750 ml Intake Oral 240 ml 250 ml Output Urine Total 500 ml 2000 ml Laboratory Tests Test 06/22/18 14:25 06/23/18 06:30 White Blood Count 10.3 K/UL (4.8-10.8) 13.3 K/UL (4.8-10.8) H Red Blood Count 4.44 M/UL (4.20-5.40) 4.60 M/UL (4.20-5.40) Hemoglobin 12.9 G/DL (12.0-16.0) 13.5 G/DL (12.0-16.0) Hematocrit 39.8 % (37.0-47.0) 41.4 % (37.0-47.0) Mean Corpuscular Volume 90 FL (80-99) 90 FL (80-99) Mean Corpuscular Hemoglobin 29.1 PG (27.0-31.0) 29.4 PG (27.0-31.0) Mean Corpuscular Hemoglobin Concent 32.5 G/DL (32.0-36.0) 32.6 G/DL (32.0-36.0) Red Cell Distribution Width 14.1 % (11.6-14.8) 14.0 % (11.6-14.8) Platelet Count 217 K/UL (150-450) 221 K/UL (150-450) Mean Platelet Volume 7.1 FL (6.5-10.1) 7.2 FL (6.5-10.1) Neutrophils (%) (Auto) 69.9 % (45.0-75.0) 80.5 % (45.0-75.0) H Lymphocytes (%) (Auto) 22.6 % (20.0-45.0) 13.7 % (20.0-45.0) L Monocytes (%) (Auto) 5.4 % (1.0-10.0) 4.2 % (1.0-10.0) Eosinophils (%) (Auto) 1.2 % (0.0-3.0) 1.1 % (0.0-3.0) Basophils (%) (Auto) 0.9 % (0.0-2.0) 0.5 % (0.0-2.0) Prothrombin Time 10.3 SEC (9.30-11.50) Prothromb Time International Ratio 1.0 (0.9-1.1) Activated Partial Thromboplast Time 29 SEC (23-33) Urine Color Pale yellow Urine Appearance Clear Urine pH 7 (4.5-8.0) Urine Specific [place] 1.010 (1.005-1.035) Urine Protein Negative (NEGATIVE) Urine Glucose (UA) Negative (NEGATIVE) Urine Ketones Negative (NEGATIVE) Urine Blood Negative (NEGATIVE) Urine Nitrite Negative (NEGATIVE) Urine Bilirubin Negative (NEGATIVE) Urine Urobilinogen 4 MG/DL (0.0-1.0) H Urine Leukocyte Esterase Negative (NEGATIVE) Sodium Level 137 MMOL/L (136-145) 136 MMOL/L (136-145) Potassium Level 4.4 MMOL/L (3.5-5.1) 4.2 MMOL/L (3.5-5.1) Chloride Level 101 MMOL/L (98-107) 99 MMOL/L (98-107) Carbon Dioxide Level 28 MMOL/L (21-32) 27 MMOL/L (21-32) Anion Gap 8 mmol/L (5-15) 10 mmol/L (5-15) Blood Urea Nitrogen 26 mg/dL (7-18) H 25 mg/dL (7-18) H Creatinine 1.3 MG/DL (0.55-1.30) 1.2 MG/DL (0.55-1.30) Estimat Glomerular Filtration Rate 49.7 mL/min (>60) 54.5 mL/min (>60) Glucose Level 105 MG/DL (74-106) 126 MG/DL (74-106) H Calcium Level 9.4 MG/DL (8.5-10.1) 9.4 MG/DL (8.5-10.1) Total Bilirubin 0.8 MG/DL (0.2-1.0) Aspartate Amino Transf (AST/SGOT) 35 U/L (15-37) Alanine Aminotransferase (ALT/SGPT) 26 U/L (12-78) Alkaline Phosphatase 127 U/L (46-116) H Total Creatine Kinase 219 U/L (26-308) Troponin I 0.006 ng/mL (0.000-0.056) 0.000 ng/mL (0.000-0.056) Pro-B-Type Natriuretic Peptide 5056 pg/mL (0-125) H 2942 pg/mL (0-125) H Total Protein 8.8 G/DL (6.4-8.2) H Albumin 3.4 G/DL (3.4-5.0) 3.6 G/DL (3.4-5.0) Globulin 5.4 g/dL Albumin/Globulin Ratio 0.6 (1.0-2.7) L Phosphorus Level 5.0 MG/DL (2.5-4.9) H Height (Feet): 5 Height (Inches): 5.00 Weight (Pounds): 220 Medications Current Medications Medications (Trade) Dose Ordered Sig/Marline Route PRN Reason Start Time Stop Time Status Last Admin Dose Admin Acetaminophen (Tylenol) 650 mg Q4H PRN ORAL Fever (temp>100.5F) 06/22/18 17:15 07/22/18 17:14 Albuterol/ Ipratropium (Albuterol/ Ipratropium) 3 ml Q4H PRN HHN Shortness of Breath 06/22/18 17:15 06/27/18 17:14 Atorvastatin Calcium (Lipitor) 10 mg BEDTIME ORAL 06/22/18 21:00 07/22/18 20:59 06/22/18 21:27 Clopidogrel Bisulfate (Plavix) 75 mg DAILY ORAL 06/23/18 09:00 07/23/18 08:59 06/23/18 08:11 Dextrose (Dextrose 50%) 25 ml Q30M PRN IV Hypoglycemia 06/22/18 17:15 07/22/18 17:14 Dextrose (Dextrose 50%) 50 ml Q30M PRN IV Hypoglycemia 06/22/18 17:15 07/22/18 17:14 Furosemide (Lasix) 40 mg EVERY 8 HOURS IV 06/22/18 22:00 07/22/18 21:59 06/23/18 05:32 Heparin Sodium (Porcine) (Heparin 5000 units/ml) 5,000 units EVERY 12 HOURS SUBQ 06/22/18 21:00 07/22/18 20:59 06/23/18 08:11 Levothyroxine Sodium (Synthroid) 25 mcg ACBREAKFAST ORAL 06/23/18 06:30 07/23/18 06:29 06/23/18 05:39 Ondansetron HCl (Zofran) 4 mg Q6H PRN IVP Nausea & Vomiting 06/22/18 17:15 07/22/18 17:14 Polyethylene Glycol (Miralax) 17 gm DAILYPRN PRN ORAL Constipation 06/22/18 17:15 07/22/18 17:14 Temazepam (Restoril) 15 mg HSPRN PRN ORAL Insomnia 06/22/18 17:15 06/29/18 17:14 Assessment/Plan Problem List: (1) ACS (acute coronary syndrome) ICD Codes: I20.0 - Unstable angina SNOMED: 867548140 (2) COPD (chronic obstructive pulmonary disease) ICD Codes: J44.9 - Chronic obstructive pulmonary disease, unspecified SNOMED: 18600033 (3) CAD (coronary artery disease) ICD Codes: I25.10 - Atherosclerotic heart disease of [place] coronary artery without angina pectoris SNOMED: 89909945 (4) HTN (hypertension) ICD Codes: I10 - Essential (primary) hypertension SNOMED: 27001598 (5) Hypothyroidism ICD Codes: E03.9 - Hypothyroidism, unspecified SNOMED: 30132848 Assessment/Plan respiratory treatment check troponin, ekg, echo cardiology to see diuretics [place] for Right leg pain. dvt prophylaxis. Halina Hameed MD Jun 23, 2018 11:58
[2018-06-23 12:00] VITALS: BP 138/80
--- NOTE | 2018-06-23 13:14 | Cardiology Report ---
APPROVED REPORT EXAM: Two-dimensional and M-mode echocardiogram with Doppler and color Doppler. INDICATION LV FUNCTION M-Mode DIMENSIONS IVSd0.7 (0.7-1.1cm)Left Atrium (MM)3.8 (1.6-4.0cm) LVDd5.9 (3.5-5.6cm)Aortic Root2.4 (2.0-3.7cm) PWd0.6 (0.7-1.1cm)Aortic Cusp Exc.1.8 (1.5-2.0cm) IVSs0.9 cm LVDs4.8 (2.5-4.0cm) PWs0.9 cm Global left ventricular hypokinesis . Mild left ventricular enlargement. Left ventricular ejection fraction estimated to be 30-35%. Mild left ventricular hypertrophy by 2-D. Moderate posterior and lateral pericardial effusion present . Mild left atrial enlargement . Right cardiac chamber sizes are within normal limits. Focal aortic valve sclerosis with adequate cusp excursion. Thickened mitral valve leaflets with normal excursion. Mitral annulus and aortic root calcification. Pulmonic valve not well visualized. Normal tricuspid valve structure. IVC at size 2.1 without physiological collapse suggestive of increased RA pressure. A color flow and spectral Doppler study was performed and revealed: No aortic regurgitation. Mild mitral regurgitation. Mitral diastolic velocities suggest reduced left ventricular relaxation c/w diastolic dysfunction grade I . Trace tricuspid regurgitation. Tricuspid systolic velocities suggests peak right ventricular systolic pressure of 19 mmHg.
[2018-06-23] MEDS: HYDROcodone/Acetamin 10/325 tab ORAL PRN (13:25)
--- NOTE | 2018-06-23 13:27 | Cardiology Report ---
APPROVED REPORT EKG Measurement Heart [id number] Sinus rhythm with premature supraventricular complexes Possible Left atrial enlargement Borderline ECG
[2018-06-23 16:00] VITALS: BP 133/78
--- NOTE | 2018-06-23 17:58 | Cardiac Electrophysiology PN ---
Subjective Subjective [id number] Objective Last 24 Hour Vital Signs Date Time Temp Pulse Resp B/P (MAP) Pulse Ox O2 Delivery O2 Flow Rate FiO2 06/23/18 16:00 98.4 82 18 133/78 (96) 98 06/23/18 15:59 80 06/23/18 13:55 98.4 06/23/18 12:00 98.4 80 18 138/80 (99) 98 06/23/18 11:38 96 06/23/18 09:00 Room Air 06/23/18 08:55 81 16 Room Air 21 06/23/18 07:38 94 06/23/18 07:38 98.4 89 18 142/80 (100) 98 06/23/18 04:00 98.4 87 18 153/78 (103) 98 06/23/18 03:39 82 06/22/18 23:39 89 06/22/18 23:36 99.5 81 20 123/74 (90) 97 06/22/18 23:22 98 Room Air 21 06/22/18 21:00 Room Air 06/22/18 20:00 97.2 82 20 131/63 (85) 92 06/22/18 19:48 84 06/22/18 19:37 Room Air Intake and Output 06/22/18 06/23/18 18:59 06:59 Intake Total 240 ml 250 ml Output Total 500 ml 2000 ml Balance -260 ml -1750 ml Intake Oral 240 ml 250 ml Output Urine Total 500 ml 2000 ml Laboratory Tests Test 06/23/18 06:30 White Blood Count 13.3 K/UL (4.8-10.8) H Red Blood Count 4.60 M/UL (4.20-5.40) Hemoglobin 13.5 G/DL (12.0-16.0) Hematocrit 41.4 % (37.0-47.0) Mean Corpuscular Volume 90 FL (80-99) Mean Corpuscular Hemoglobin 29.4 PG (27.0-31.0) Mean Corpuscular Hemoglobin Concent 32.6 G/DL (32.0-36.0) Red Cell Distribution Width 14.0 % (11.6-14.8) Platelet Count 221 K/UL (150-450) Mean Platelet Volume 7.2 FL (6.5-10.1) Neutrophils (%) (Auto) 80.5 % (45.0-75.0) H Lymphocytes (%) (Auto) 13.7 % (20.0-45.0) L Monocytes (%) (Auto) 4.2 % (1.0-10.0) Eosinophils (%) (Auto) 1.1 % (0.0-3.0) Basophils (%) (Auto) 0.5 % (0.0-2.0) Sodium Level 136 MMOL/L (136-145) Potassium Level 4.2 MMOL/L (3.5-5.1) Chloride Level 99 MMOL/L (98-107) Carbon Dioxide Level 27 MMOL/L (21-32) Anion Gap 10 mmol/L (5-15) Blood Urea Nitrogen 25 mg/dL (7-18) H Creatinine 1.2 MG/DL (0.55-1.30) Estimat Glomerular Filtration Rate 54.5 mL/min (>60) Glucose Level 126 MG/DL (74-106) H Calcium Level 9.4 MG/DL (8.5-10.1) Phosphorus Level 5.0 MG/DL (2.5-4.9) H Troponin I 0.000 ng/mL (0.000-0.056) Pro-B-Type Natriuretic Peptide 2942 pg/mL (0-125) H Albumin 3.6 G/DL (3.4-5.0) Kendall Gomes MD Jun 23, 2018 17:58
--- NOTE | 2018-06-23 18:52 | Internal Med Progress Note ---
Subjective Date of Service: Jun 23, 2018 Physician Name Antonio Anglin Attending Physician Charly Sandhu MD Current Medications Medications (Trade) Dose Ordered Sig/Marline Route PRN Reason Start Time Stop Time Status Last Admin Dose Admin Acetaminophen (Tylenol) 650 mg Q4H PRN ORAL Fever (temp>100.5F) 06/22/18 17:15 07/22/18 17:14 Acetaminophen/ Hydrocodone Bitart ([place] 10/325) 1 tab Q4H PRN ORAL For Pain 06/23/18 12:00 06/30/18 11:59 06/23/18 13:25 Albuterol/ Ipratropium (Albuterol/ Ipratropium) 3 ml Q4H PRN HHN Shortness of Breath 06/22/18 17:15 06/27/18 17:14 Aspirin (Ecotrin) 81 mg DAILY ORAL 06/24/18 09:00 07/24/18 08:59 Atorvastatin Calcium (Lipitor) 10 mg BEDTIME ORAL 06/22/18 21:00 07/22/18 20:59 06/22/18 21:27 Carvedilol (Coreg) 3.125 mg EVERY 12 HOURS ORAL 06/23/18 21:00 07/23/18 20:59 Clopidogrel Bisulfate (Plavix) 75 mg DAILY ORAL 06/23/18 09:00 07/23/18 08:59 06/23/18 08:11 Dextrose (Dextrose 50%) 25 ml Q30M PRN IV Hypoglycemia 06/22/18 17:15 07/22/18 17:14 Dextrose (Dextrose 50%) 50 ml Q30M PRN IV Hypoglycemia 06/22/18 17:15 07/22/18 17:14 Furosemide (Lasix) 40 mg EVERY 8 HOURS IV 06/22/18 22:00 07/22/18 21:59 06/23/18 13:21 Heparin Sodium (Porcine) (Heparin 5000 units/ml) 5,000 units EVERY 12 HOURS SUBQ 06/22/18 21:00 07/22/18 20:59 06/23/18 08:11 Levothyroxine Sodium (Synthroid) 25 mcg ACBREAKFAST ORAL 06/23/18 06:30 07/23/18 06:29 06/23/18 05:39 Lisinopril (Zestril) 10 mg DAILY ORAL 06/24/18 09:00 07/24/18 08:59 Ondansetron HCl (Zofran) 4 mg Q6H PRN IVP Nausea & Vomiting 06/22/18 17:15 07/22/18 17:14 Polyethylene Glycol (Miralax) 17 gm DAILYPRN PRN ORAL Constipation 06/22/18 17:15 07/22/18 17:14 Spironolactone (Aldactone) 25 mg DAILY ORAL 06/24/18 09:00 07/24/18 08:59 Temazepam (Restoril) 15 mg HSPRN PRN ORAL Insomnia 06/22/18 17:15 06/29/18 17:14 Allergies: Coded Allergies: No Known Allergies (Verified , 06/22/18) ROS Limited/Unobtainable: No Constitutional: Reports: no symptoms HEENT: Reports: no symptoms Cardiovascular: Reports: chest pain Respiratory: Reports: shortness of breath Gastrointestinal/Abdominal: Reports: no symptoms Genitourinary: Reports: no symptoms Neurologic/Psychiatric: Reports: no symptoms Subjective 68 YO F admitted for chest pain and shortness of breath. Now acute CHF exacerbation. Cover for Int Xavier-Dr Sandhu Objective Last Vital Signs Date Time Temp Pulse Resp B/P (MAP) Pulse Ox O2 Delivery O2 Flow Rate FiO2 06/23/18 16:00 98.4 82 18 133/78 (96) 98 06/23/18 09:00 Room Air 06/23/18 08:55 21 Laboratory Tests Test 06/23/18 06:30 White Blood Count 13.3 K/UL (4.8-10.8) H Red Blood Count 4.60 M/UL (4.20-5.40) Hemoglobin 13.5 G/DL (12.0-16.0) Hematocrit 41.4 % (37.0-47.0) Mean Corpuscular Volume 90 FL (80-99) Mean Corpuscular Hemoglobin 29.4 PG (27.0-31.0) Mean Corpuscular Hemoglobin Concent 32.6 G/DL (32.0-36.0) Red Cell Distribution Width 14.0 % (11.6-14.8) Platelet Count 221 K/UL (150-450) Mean Platelet Volume 7.2 FL (6.5-10.1) Neutrophils (%) (Auto) 80.5 % (45.0-75.0) H Lymphocytes (%) (Auto) 13.7 % (20.0-45.0) L Monocytes (%) (Auto) 4.2 % (1.0-10.0) Eosinophils (%) (Auto) 1.1 % (0.0-3.0) Basophils (%) (Auto) 0.5 % (0.0-2.0) Sodium Level 136 MMOL/L (136-145) Potassium Level 4.2 MMOL/L (3.5-5.1) Chloride Level 99 MMOL/L (98-107) Carbon Dioxide Level 27 MMOL/L (21-32) Anion Gap 10 mmol/L (5-15) Blood Urea Nitrogen 25 mg/dL (7-18) H Creatinine 1.2 MG/DL (0.55-1.30) Estimat Glomerular Filtration Rate 54.5 mL/min (>60) Glucose Level 126 MG/DL (74-106) H Calcium Level 9.4 MG/DL (8.5-10.1) Phosphorus Level 5.0 MG/DL (2.5-4.9) H Troponin I 0.000 ng/mL (0.000-0.056) Pro-B-Type Natriuretic Peptide 2942 pg/mL (0-125) H Albumin 3.6 G/DL (3.4-5.0) Intake and Output 06/22/18 06/23/18 19:00 07:00 Intake Total 240 ml 250 ml Output Total 500 ml 2000 ml Balance -260 ml -1750 ml Intake Oral 240 ml 250 ml Output Urine Total 500 ml 2000 ml Objective PHYSICAL EXAMINATION: GENERAL: The patient is a well-developed and well-nourished female, in no apparent distress. HEENT: Eyes, pupils are equal and responsive to light and accommodation. Extraocular movements are intact. NECK: Supple without lymphadenopathy. CHEST: Lungs with scattered wheezes bilaterally and rales in bilateral bases. CARDIOVASCULAR: Regular rhythm and rate. S1 and S2 normal without murmurs, rubs, or gallops. ABDOMEN: Soft, nontender, and nondistended. Positive bowel sounds. No evidence of hepatosplenomegaly. Currently, no rebound or guarding noted. EXTREMITIES: Negative for clubbing, cyanosis, or edema. RECTAL/GENITAL: Refused. NEUROLOGIC: Cranial nerves II through XII are grossly intact without focal deficits. Motor strength is 5/5 bilaterally. Deep tendon reflexes are 2+ plantar. Assessment/Plan Assessment/Plan ASSESSMENT: This is a 68-year-old female with: 1. Shortness of breath. 2. Chest pain. 3. Hypertension. 4. Congestive heart failure. 5. Cerebrovascular disease. 6. Hypothyroidism. 7. Coronary artery disease. 8. Right hemiparesis. TREATMENT: 1. Shortness of breath/chest pain. A Cardiology consultation has been obtained with Dr. Gomes. We will follow recommendation of Cardiology. Serial troponin levels will be performed. 2. Hypertension. Continue lisinopril and Coreg as above. 3. Acute exacerbation of congestive heart failure. Echo-LVEF=30-35%. BNP > 5000. As above, Cardiology consultation has been obtained with Dr. Kendall Gomes. Continue lasix 4. Cerebrovascular disease. 5. Hypothyroidism. Continue Levoxyl as above. 6. Coronary artery disease. 7. Right hemiparesis. Antonio Anglin MD Jun 23, 2018 18:52
--- NOTE | 2018-06-23 19:15 | NUR ---
HAND-OFF: Report given to LUIS M BERTRAND.
[2018-06-23 20:00] VITALS: BP 143/86
--- NOTE | 2018-06-23 21:00 | NUR ---
NURSE NOTES: Recvd pt. Pt is awake and alert AOX4. Pt is on room air with no sign of sob or resp distress. Pt has cotton in place, draining yellow urine. bed in lowest position, call light within reach, will continue with plan of care.
--- NOTE | 2018-06-23 21:15 | Consultation ---
DATE OF CONSULTATION: 06/23/2018 CARDIOLOGY CONSULTATION CONSULTING PHYSICIAN: Kendall Gomes M.D. REFERRING PHYSICIAN: Antonio Anglin M.D. REASON FOR CONSULTATION: Hypertension, congestive heart failure, coronary artery disease. HISTORY OF PRESENT ILLNESS: The patient is a 68-year-old lady with history of hypertension, congestive heart failure, coronary disease, chronic obstructive pulmonary disease, presents to the emergency room with several days of dyspnea on exertion, chest pain, orthopnea. The patient has been taking Lasix but feels it is not working. I also noticed that her ankles were swollen, however, her main symptoms are shortness of breath and chest pain. Her BNP was around 5000 and chest x-ray showed cardiomegaly. The patient was admitted to telemetry and a Cardiology consultation was requested. She also underwent an echocardiogram which showed ejection fraction of only 30% to 35%. REVIEW OF SYSTEMS: Review of systems was negative other than what was mentioned in the history of present illness. PAST MEDICAL HISTORY: As mentioned above. FAMILY HISTORY: Noncontributory. SOCIAL HISTORY: She does not smoke or drink alcohol. PHYSICAL EXAMINATION: VITAL SIGNS: Blood pressure 132/78, pulse is 82, respirations 18, and temperature is 98.4. HEAD AND NECK: Mild JVD. LUNGS: Coarse rhonchi. CARDIOVASCULAR: Regular S1 and S2 with no gallop or murmur. ABDOMEN: Soft. EXTREMITIES: A 1+ pitting edema. LABORATORY AND DIAGNOSTIC DATA: White count of 13.3, hemoglobin of 13.5, hematocrit 41.5, and platelet count 221. Sodium 132, potassium 4.2, BUN of 25, creatinine 1.2. Troponin negative x2. BNP is more than . ASSESSMENT AND PLAN: 1. Congestive heart failure. BNP was more than 5000 and now is around 3000. Ejection fraction is only 30% to 35%. The patient is also on Lasix 40 mg IV 8 hours. Her creatinine is 1.2. Also I will start Aldactone, lisinopril, and Coreg to her medical regimen. The reason for the patient's cardiomyopathy is not clear at this time. 2. Questionable coronary artery disease. The patient is on Plavix and Lipitor. Add Coreg to her medical regimen. 3. Chronic obstructive pulmonary disease. 4. 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 It is of note, the patient was on Coreg at home as well as aspirin, Plavix, lisinopril. Thank you very much, Dr. Anglin and Dr. Sandhu for allowing me to participate in the care of this patient. Please do not hesitate to contact me for any questions regarding my evaluation. Sincerely, Kendall Gomes M.D. DR: Annamarie JOB#: [id number] CC:
--- NOTE | 2018-06-23 22:20 | Physician Query ---
THIS DOCUMENT IS A PERMANENT PART OF THE MEDICAL RECORD PLEASE COMPLETE THE DOCUMENT BEFORE SIGNING Dear Dr. Anglin Date: 06/23/2018 Development Director/CDS Name: Denisha Garcia Please click EDIT and place X on appropriate box Acute exacerbation of CHF is documented in medical records. BNP: >5000, Echo: Ejection fraction 30-35%, Rx: IV Furosemide Can you please clarify the type of CHF? [ X ] Systolic [ ] Diastolic [ ] Systolic & Diastolic (Combined) [ ] Other: [ ] Clinically undetermined Present on Admission: [ X ] Yes [ ] No [ ] Clinically Undeterminable Please also document in your Progress Notes and/or Discharge Summary and indicate if the condition was present on admission. Physician Signature Date MTDD
[2018-06-23] MEDS: Albuterol/Ipratropium 3ml neb HHN PRN (23:17)
[2018-06-24] VITALS: BP 121/74
[2018-06-24 04:00] VITALS: BP 115/74
[2018-06-24] MEDS: Levothyroxine 25mcg tab ORAL SCH (06:19)
[2018-06-24 07:14] LABS: BASOPHILS % (AUTO) 0.4 % (0.0-2.0); EOSINOPHILS % (AUTO) 1.2 % (0.0-3.0); HEMOGLOBIN 13.1 G/DL (12.0-16.0); LYMPHOCYTES % (AUTO) 20.8 % (20.0-45.0); MEAN CORPUSCULAR VOLUME 91 FL (80-99); MONOCYTES % (AUTO) 5.3 % (1.0-10.0); NEUTROPHILS % (AUTO) 72.4 % (45.0-75.0); PLATELET COUNT 221 K/UL (150-450); RED BLOOD COUNT 4.52 M/UL (4.20-5.40); RED CELL DISTRIBUTION WIDTH 14.3 % (11.6-14.8); WHITE BLOOD COUNT 9.9 K/UL (4.8-10.8)
--- NOTE | 2018-06-24 07:20 | NUR ---
HAND-OFF: Report given to [Isra BERTRAND].
--- NOTE | 2018-06-24 07:21 | NUR ---
NURSE NOTES: pt awake alert, no distress. no c/o pain. call light within reach. bed in lowest position, locked
[2018-06-24 07:23] VITALS: BP 101/68
[2018-06-24 07:43] LABS: ANION GAP 10 mmol/L (5-15); BLOOD UREA NITROGEN 30 mg/dL (7-18); CALCIUM 9.8 MG/DL (8.5-10.1); CARBON DIOXIDE 28 MMOL/L (21-32); CHLORIDE 99 MMOL/L (98-107); CREATININE 1.4 MG/DL (0.55-1.30); POTASSIUM 3.7 MMOL/L (3.5-5.1); SODIUM 137 MMOL/L (136-145)
[2018-06-24] MEDS: Aspirin EC 81mg tab ORAL SCH (08:18)
[2018-06-24] MEDS: Spironolactone 25mg tab ORAL SCH (08:18)
[2018-06-24] MEDS: Lisinopril 10mg tab ORAL SCH (08:20)
[2018-06-24] MEDS: Heparin 5000 units/ml inj SUBQ SCH ×2 (08:20→21:28)
[2018-06-24] MEDS: HYDROcodone/Acetamin 10/325 tab ORAL PRN (09:37)
--- NOTE | 2018-06-24 11:53 | Pulmonology Progress Note ---
Assessment/Plan Problems: (1) ACS (acute coronary syndrome) (2) COPD (chronic obstructive pulmonary disease) (3) CAD (coronary artery disease) (4) HTN (hypertension) (5) Hypothyroidism Assessment/Plan improving Fluid balance is -2 liter decrease lasix to 40 QD respiratory treatment monitor BP titrate fio2 to sat of 92% dvt prophylaxis. Subjective ROS Limited/Unobtainable: No Interval Events: doing better Allergies: Coded Allergies: No Known Allergies (Verified , 06/22/18) Objective Last 24 Hour Vital Signs Date Time Temp Pulse Resp B/P (MAP) Pulse Ox O2 Delivery O2 Flow Rate FiO2 06/24/18 10:07 98.4 06/24/18 08:20 101/68 06/24/18 08:20 88 101/68 06/24/18 07:41 81 06/24/18 07:25 Room Air 06/24/18 07:23 98.4 88 18 101/68 (79) 98 06/24/18 04:00 98.1 85 20 115/74 (88) 96 06/24/18 04:00 79 06/24/18 00:00 74 06/24/18 00:00 97.3 73 20 121/74 (90) 97 06/23/18 23:20 76 18 95 Room Air 21 06/23/18 23:08 70 18 93 Room Air 21 06/23/18 21:35 80 143/86 06/23/18 21:00 Room Air 06/23/18 20:00 83 06/23/18 20:00 97.3 80 18 143/86 (105) 97 06/23/18 20:00 74 16 Room Air 21 06/23/18 16:00 98.4 82 18 133/78 (96) 98 06/23/18 15:59 80 06/23/18 12:00 98.4 80 18 138/80 (99) 98 Intake and Output 06/23/18 06/24/18 19:00 07:00 Intake Total 720 ml 300 ml Output Total 700 ml 800 ml Balance 20 ml -500 ml Intake Oral 720 ml 300 ml Output Urine Total 700 ml 800 ml # Bowel Movements 1 General Appearance: cachetic HEENT: normocephalic, atraumatic Respiratory/Chest: chest wall non-tender, crackles/rales Cardiovascular: normal peripheral pulses, normal rate Abdomen: normal bowel sounds, soft, non tender Genitourinary: normal external genitalia Extremities: no clubbing 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 Laboratory Tests 06/24/18 06:15: White Blood Count 9.9, Red Blood Count 4.52, Hemoglobin 13.1, Hematocrit 41.0, Mean Corpuscular Volume 91, Mean Corpuscular Hemoglobin 29.0, Mean Corpuscular Hemoglobin Concent 32.0, Red Cell Distribution Width 14.3, Platelet Count 221, Mean Platelet Volume 7.0, Neutrophils (%) (Auto) 72.4, Lymphocytes (%) (Auto) 20.8, Monocytes (%) (Auto) 5.3, Eosinophils (%) (Auto) 1.2, Basophils (%) (Auto ) 0.4, Sodium Level 137, Potassium Level 3.7, Chloride Level 99, Carbon Dioxide Level 28, Anion Gap 10, Blood Urea Nitrogen 30H, Creatinine 1.4H, Estimat Glomerular Filtration Rate 45.6, Glucose Level 132H, Calcium Level 9.8, Troponin I 0.003, Pro-B-Type Natriuretic Peptide 987H Current Medications Medications (Trade) Dose Ordered Sig/Marline Route PRN Reason Start Time Stop Time Status Last Admin Dose Admin Acetaminophen (Tylenol) 650 mg Q4H PRN ORAL Fever (temp>100.5F) 06/22/18 17:15 07/22/18 17:14 Acetaminophen/ Hydrocodone Bitart ([place] 10/325) 1 tab Q4H PRN ORAL For Pain 06/23/18 12:00 06/30/18 11:59 06/24/18 09:37 Albuterol/ Ipratropium (Albuterol/ Ipratropium) 3 ml Q4H PRN HHN Shortness of Breath 06/22/18 17:15 06/27/18 17:14 06/23/18 23:17 Aspirin (Ecotrin) 81 mg DAILY ORAL 06/24/18 09:00 07/24/18 08:59 06/24/18 08:18 Atorvastatin Calcium (Lipitor) 10 mg BEDTIME ORAL 06/22/18 21:00 07/22/18 20:59 06/23/18 21:36 Carvedilol (Coreg) 3.125 mg EVERY 12 HOURS ORAL 06/23/18 21:00 07/23/18 20:59 06/23/18 21:35 Clopidogrel Bisulfate (Plavix) 75 mg DAILY ORAL 06/23/18 09:00 07/23/18 08:59 06/24/18 08:18 Dextrose (Dextrose 50%) 25 ml Q30M PRN IV Hypoglycemia 06/22/18 17:15 07/22/18 17:14 Dextrose (Dextrose 50%) 50 ml Q30M PRN IV Hypoglycemia 06/22/18 17:15 07/22/18 17:14 Furosemide (Lasix) 40 mg EVERY 8 HOURS IV 06/22/18 22:00 07/22/18 21:59 06/24/18 06:19 Heparin Sodium (Porcine) (Heparin 5000 units/ml) 5,000 units EVERY 12 HOURS SUBQ 06/22/18 21:00 07/22/18 20:59 06/24/18 08:20 Levothyroxine Sodium (Synthroid) 25 mcg ACBREAKFAST ORAL 06/23/18 06:30 07/23/18 06:29 06/24/18 06:19 Lisinopril (Zestril) 10 mg DAILY ORAL 06/24/18 09:00 07/24/18 08:59 Ondansetron HCl (Zofran) 4 mg Q6H PRN IVP Nausea & Vomiting 06/22/18 17:15 07/22/18 17:14 Polyethylene Glycol (Miralax) 17 gm DAILYPRN PRN ORAL Constipation 06/22/18 17:15 07/22/18 17:14 Spironolactone (Aldactone) 25 mg DAILY ORAL 06/24/18 09:00 07/24/18 08:59 06/24/18 08:18 Temazepam (Restoril) 15 mg HSPRN PRN ORAL Insomnia 06/22/18 17:15 06/29/18 17:14 Halina Hameed MD Jun 24, 2018 11:53
[2018-06-24 12:09] VITALS: BP 103/71
[2018-06-24 15:53] VITALS: BP 129/65
--- NOTE | 2018-06-24 17:39 | Cardiac Electrophysiology PN ---
Assessment/Plan Assessment/Plan 1. Congestive heart failure. BNP was more than 5000 and now is around 3000. Ejection fraction is only 30% to 35%. On Lasix 40 mg IV daily On Aldactone, lisinopril, and Coreg . The reason for the patient's cardiomyopathy is not clear at this time. 2. Questionable coronary artery disease. The patient is on Plavix and Lipitor and Coreg 3. Chronic obstructive pulmonary disease. 4. 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 Subjective Subjective No CP or SOB Objective Last 24 Hour Vital Signs Date Time Temp Pulse Resp B/P (MAP) Pulse Ox O2 Delivery O2 Flow Rate FiO2 06/24/18 16:20 83 06/24/18 15:53 98.4 76 18 129/65 (86) 98 06/24/18 12:09 98.4 66 18 103/71 (82) 98 06/24/18 11:52 80 06/24/18 10:07 98.4 06/24/18 08:20 101/68 06/24/18 08:20 88 101/68 06/24/18 07:41 81 06/24/18 07:25 Room Air 06/24/18 07:23 98.4 88 18 101/68 (79) 98 06/24/18 04:00 98.1 85 20 115/74 (88) 96 06/24/18 04:00 79 06/24/18 00:00 74 06/24/18 00:00 97.3 73 20 121/74 (90) 97 06/23/18 23:20 76 18 95 Room Air 21 06/23/18 23:08 70 18 93 Room Air 21 06/23/18 21:35 80 143/86 06/23/18 21:00 Room Air 06/23/18 20:00 83 06/23/18 20:00 97.3 80 18 143/86 (105) 97 06/23/18 20:00 74 16 Room Air 21 Intake and Output 06/23/18 06/24/18 18:59 06:59 Intake Total 720 ml 300 ml Output Total 700 ml 800 ml Balance 20 ml -500 ml Intake Oral 720 ml 300 ml Output Urine Total 700 ml 800 ml # Bowel Movements 1 Laboratory Tests Test 06/24/18 06:15 White Blood Count 9.9 K/UL (4.8-10.8) Red Blood Count 4.52 M/UL (4.20-5.40) Hemoglobin 13.1 G/DL (12.0-16.0) Hematocrit 41.0 % (37.0-47.0) Mean Corpuscular Volume 91 FL (80-99) Mean Corpuscular Hemoglobin 29.0 PG (27.0-31.0) Mean Corpuscular Hemoglobin Concent 32.0 G/DL (32.0-36.0) Red Cell Distribution Width 14.3 % (11.6-14.8) Platelet Count 221 K/UL (150-450) Mean Platelet Volume 7.0 FL (6.5-10.1) Neutrophils (%) (Auto) 72.4 % (45.0-75.0) Lymphocytes (%) (Auto) 20.8 % (20.0-45.0) Monocytes (%) (Auto) 5.3 % (1.0-10.0) Eosinophils (%) (Auto) 1.2 % (0.0-3.0) Basophils (%) (Auto) 0.4 % (0.0-2.0) Sodium Level 137 MMOL/L (136-145) Potassium Level 3.7 MMOL/L (3.5-5.1) Chloride Level 99 MMOL/L (98-107) Carbon Dioxide Level 28 MMOL/L (21-32) Anion Gap 10 mmol/L (5-15) Blood Urea Nitrogen 30 mg/dL (7-18) H Creatinine 1.4 MG/DL (0.55-1.30) H Estimat Glomerular Filtration Rate 45.6 mL/min (>60) Glucose Level 132 MG/DL (74-106) H Calcium Level 9.8 MG/DL (8.5-10.1) Troponin I 0.003 ng/mL (0.000-0.056) Pro-B-Type Natriuretic Peptide 987 pg/mL (0-125) H Objective HEAD AND NECK: Mild JVD. LUNGS: Coarse rhonchi. CARDIOVASCULAR: Regular S1 and S2 with no gallop or murmur. ABDOMEN: Soft. EXTREMITIES: 1+ pitting edema. Kendall Gomes MD Jun 24, 2018 17:39
--- NOTE | 2018-06-24 19:02 | Internal Med Progress Note ---
Subjective Date of Service: Jun 24, 2018 Physician Name Antonio Anglin Attending Physician Charly Sandhu MD Current Medications Medications (Trade) Dose Ordered Sig/Marline Route PRN Reason Start Time Stop Time Status Last Admin Dose Admin Acetaminophen (Tylenol) 650 mg Q4H PRN ORAL Fever (temp>100.5F) 06/22/18 17:15 07/22/18 17:14 Acetaminophen/ Hydrocodone Bitart ([place] 10/325) 1 tab Q4H PRN ORAL For Pain 06/23/18 12:00 06/30/18 11:59 06/24/18 09:37 Albuterol/ Ipratropium (Albuterol/ Ipratropium) 3 ml Q4H PRN HHN Shortness of Breath 06/22/18 17:15 06/27/18 17:14 06/23/18 23:17 Aspirin (Ecotrin) 81 mg DAILY ORAL 06/24/18 09:00 07/24/18 08:59 06/24/18 08:18 Atorvastatin Calcium (Lipitor) 10 mg BEDTIME ORAL 06/22/18 21:00 07/22/18 20:59 06/23/18 21:36 Carvedilol (Coreg) 3.125 mg EVERY 12 HOURS ORAL 06/23/18 21:00 07/23/18 20:59 06/23/18 21:35 Clopidogrel Bisulfate (Plavix) 75 mg DAILY ORAL 06/23/18 09:00 07/23/18 08:59 06/24/18 08:18 Dextrose (Dextrose 50%) 25 ml Q30M PRN IV Hypoglycemia 06/22/18 17:15 07/22/18 17:14 Dextrose (Dextrose 50%) 50 ml Q30M PRN IV Hypoglycemia 06/22/18 17:15 07/22/18 17:14 Furosemide (Lasix) 40 mg DAILY IV 06/25/18 09:00 07/22/18 21:59 Heparin Sodium (Porcine) (Heparin 5000 units/ml) 5,000 units EVERY 12 HOURS SUBQ 06/22/18 21:00 07/22/18 20:59 06/24/18 08:20 Levothyroxine Sodium (Synthroid) 25 mcg ACBREAKFAST ORAL 06/23/18 06:30 07/23/18 06:29 06/24/18 06:19 Lisinopril (Zestril) 10 mg DAILY ORAL 06/24/18 09:00 07/24/18 08:59 Ondansetron HCl (Zofran) 4 mg Q6H PRN IVP Nausea & Vomiting 06/22/18 17:15 07/22/18 17:14 Polyethylene Glycol (Miralax) 17 gm DAILYPRN PRN ORAL Constipation 06/22/18 17:15 07/22/18 17:14 Spironolactone (Aldactone) 25 mg DAILY ORAL 06/24/18 09:00 07/24/18 08:59 06/24/18 08:18 Temazepam (Restoril) 15 mg HSPRN PRN ORAL Insomnia 06/22/18 17:15 06/29/18 17:14 Allergies: Coded Allergies: No Known Allergies (Verified , 06/22/18) ROS Limited/Unobtainable: No Constitutional: Reports: no symptoms HEENT: Reports: no symptoms Cardiovascular: Reports: chest pain Respiratory: Reports: shortness of breath Gastrointestinal/Abdominal: Reports: no symptoms Genitourinary: Reports: no symptoms Neurologic/Psychiatric: Reports: no symptoms Subjective 68 YO F admitted for chest pain and shortness of breath. Now acute CHF exacerbation. Cover for Int [facility]-Dr Sandhu Objective Last Vital Signs Date Time Temp Pulse Resp B/P (MAP) Pulse Ox O2 Delivery O2 Flow Rate FiO2 06/24/18 16:20 83 06/24/18 15:53 98.4 18 129/65 (86) 98 06/24/18 07:25 Room Air 06/23/18 23:20 21 Laboratory Tests Test 06/24/18 06:15 White Blood Count 9.9 K/UL (4.8-10.8) Red Blood Count 4.52 M/UL (4.20-5.40) Hemoglobin 13.1 G/DL (12.0-16.0) Hematocrit 41.0 % (37.0-47.0) Mean Corpuscular Volume 91 FL (80-99) Mean Corpuscular Hemoglobin 29.0 PG (27.0-31.0) Mean Corpuscular Hemoglobin Concent 32.0 G/DL (32.0-36.0) Red Cell Distribution Width 14.3 % (11.6-14.8) Platelet Count 221 K/UL (150-450) Mean Platelet Volume 7.0 FL (6.5-10.1) Neutrophils (%) (Auto) 72.4 % (45.0-75.0) Lymphocytes (%) (Auto) 20.8 % (20.0-45.0) Monocytes (%) (Auto) 5.3 % (1.0-10.0) Eosinophils (%) (Auto) 1.2 % (0.0-3.0) Basophils (%) (Auto) 0.4 % (0.0-2.0) Sodium Level 137 MMOL/L (136-145) Potassium Level 3.7 MMOL/L (3.5-5.1) Chloride Level 99 MMOL/L (98-107) Carbon Dioxide Level 28 MMOL/L (21-32) Anion Gap 10 mmol/L (5-15) Blood Urea Nitrogen 30 mg/dL (7-18) H Creatinine 1.4 MG/DL (0.55-1.30) H Estimat Glomerular Filtration Rate 45.6 mL/min (>60) Glucose Level 132 MG/DL (74-106) H Calcium Level 9.8 MG/DL (8.5-10.1) Troponin I 0.003 ng/mL (0.000-0.056) Pro-B-Type Natriuretic Peptide 987 pg/mL (0-125) H Intake and Output 06/23/18 06/24/18 18:59 06:59 Intake Total 720 ml 300 ml Output Total 700 ml 800 ml Balance 20 ml -500 ml Intake Oral 720 ml 300 ml Output Urine Total 700 ml 800 ml # Bowel Movements 1 Objective PHYSICAL EXAMINATION: GENERAL: The patient is a well-developed and well-nourished female, in no apparent distress. HEENT: Eyes, pupils are equal and responsive to light and accommodation. Extraocular movements are intact. NECK: Supple without lymphadenopathy. CHEST: Lungs with scattered wheezes bilaterally and rales in bilateral bases. CARDIOVASCULAR: Regular rhythm and rate. S1 and S2 normal without murmurs, rubs, or gallops. ABDOMEN: Soft, nontender, and nondistended. Positive bowel sounds. No evidence of hepatosplenomegaly. Currently, no rebound or guarding noted. EXTREMITIES: Negative for clubbing, cyanosis, or edema. RECTAL/GENITAL: Refused. NEUROLOGIC: Cranial nerves II through XII are grossly intact without focal deficits. Motor strength is 5/5 bilaterally. Deep tendon reflexes are 2+ plantar. Assessment/Plan Assessment/Plan ASSESSMENT: This is a 68-year-old female with: 1. Shortness of breath. 2. Chest pain. 3. Hypertension. 4. Congestive heart failure. 5. Cerebrovascular disease. 6. Hypothyroidism. 7. Coronary artery disease. 8. Right hemiparesis. TREATMENT: 1. Shortness of breath/chest pain. A Cardiology consultation has been obtained with Dr. Gomes. We will follow recommendation of Cardiology. Serial troponin levels will be performed. 2. Hypertension. Continue lisinopril and Coreg as above. 3. Acute exacerbation of congestive heart failure. Echo-LVEF=30-35%. BNP >5000 ; now 3000 As above, Cardiology consultation has been obtained with Dr. Kendall Gomes. Continue lasix 4. Cerebrovascular disease. 5. Hypothyroidism. Continue Levoxyl as above. 6. Coronary artery disease. 7. Right hemiparesis. Antonio Anglin MD Jun 24, 2018 19:02
--- NOTE | 2018-06-24 19:12 | NUR ---
HAND-OFF: Report given to RIYA BERTRAND.
--- NOTE | 2018-06-24 19:13 | NUR ---
NURSE NOTES: Received report from JERZY Dhaliwal. Patient in bed awake showing no signs of acute distress. Respiration even and non labored on room air. No SOB. Vital stable. Bed in lowest position. Call light within reach. All needs attended and met. Will continue to monitor.
[2018-06-24 20:00] VITALS: BP 131/75
[2018-06-24] MEDS: Albuterol/Ipratropium 3ml neb HHN PRN (20:33)
[2018-06-25] VITALS: BP 127/79
[2018-06-25 04:00] VITALS: BP 123/71
[2018-06-25] MEDS: Levothyroxine 25mcg tab ORAL SCH (06:16)
[2018-06-25 07:11] LABS: BASOPHILS % (AUTO) 0.4 % (0.0-2.0); EOSINOPHILS % (AUTO) 1.7 % (0.0-3.0); HEMATOCRIT 41.1 % (37.0-47.0); HEMOGLOBIN 13.4 G/DL (12.0-16.0); LYMPHOCYTES % (AUTO) 20.9 % (20.0-45.0); MEAN CORPUSCULAR VOLUME 90 FL (80-99); MONOCYTES % (AUTO) 5.4 % (1.0-10.0); NEUTROPHILS % (AUTO) 71.5 % (45.0-75.0); PLATELET COUNT 224 K/UL (150-450); RED BLOOD COUNT 4.56 M/UL (4.20-5.40); RED CELL DISTRIBUTION WIDTH 13.7 % (11.6-14.8); WHITE BLOOD COUNT 9.4 K/UL (4.8-10.8)
[2018-06-25 07:22] LABS: ANION GAP 7 mmol/L (5-15); BLOOD UREA NITROGEN 27 mg/dL (7-18); CALCIUM 9.6 MG/DL (8.5-10.1); CARBON DIOXIDE 29 MMOL/L (21-32); CHLORIDE 98 MMOL/L (98-107); CREATININE 1.3 MG/DL (0.55-1.30); POTASSIUM 4.1 MMOL/L (3.5-5.1); SODIUM 134 MMOL/L (136-145)
--- NOTE | 2018-06-25 07:46 | NUR ---
HAND-OFF: Report given to JERZY Zhu.
--- NOTE | 2018-06-25 07:47 | NUR ---
NURSE NOTES: Received report from JERZY Browning. Patient is sitting in bed, eating her breakfast. Alert and oriented x4, in stable condition. No signs and symptoms of acute distress noticed at this time. Bed in lowest position, side rails upx2, call light and bed side table within reach. Will continue to monitor.
[2018-06-25 08:00] VITALS: BP 128/77
[2018-06-25] MEDS: Aspirin EC 81mg tab ORAL SCH (09:01)
[2018-06-25] MEDS: Spironolactone 25mg tab ORAL SCH (09:02)
[2018-06-25] MEDS: Lisinopril 10mg tab ORAL SCH (09:02)
[2018-06-25] MEDS: Heparin 5000 units/ml inj SUBQ SCH ×2 (09:07→20:33)
--- NOTE | 2018-06-25 10:54 | NUR ---
RD ASSESSMENT & RECOMMENDATIONS SEE CARE ACTIVITY FOR COMPLETE ASSESSMENT DAILY ESTIMATED NEEDS: Needs based on Cardiac, pulmonary, obese/ 68kg abw 22-25 kcals/kg 9680-4999 total kcals 1-1.2 g protein/kg 67-80g g total protein 20-22 mL/kg 7589-6406 total fluid mLs NUTRITION DIAGNOSIS: 1) Altered nutrition related lab values R/T CHF, clinical condition as evidenced by elev BNP (2942 -> 481), low Na (134) CURRENT DIET:CARDIAC PO DIET RECOMMENDATIONS: CARDIAC/ texture as tolerated ADDITIONAL RECOMMENDATIONS: * Daily standing/calibrated bedscale wt -> CHF dx, on diuretics * Monitor lytes closely on diuretics, replete lytes as needed * A1C for eval of glycemic control- last A1C on 06/24/17=6.4 * Monitor BGs closely for need for carb controlled diet, hypoglycemic agents
[2018-06-25 12:00] VITALS: BP 119/75
[2018-06-25] MEDS ORDERED: LISINOPRIL10 MG ORAL (12:56)
--- NOTE | 2018-06-25 12:58 | Pulmonology Progress Note ---
Assessment/Plan Problems: (1) ACS (acute coronary syndrome) (2) COPD (chronic obstructive pulmonary disease) (3) CAD (coronary artery disease) (4) HTN (hypertension) (5) Hypothyroidism Assessment/Plan improving Fluid balance is -2 liter on lasix to 40 QD respiratory treatment monitor BP bnp decreasing titrate fio2 to sat of 92% dvt prophylaxis. dc home. Subjective ROS Limited/Unobtainable: No Constitutional: Reports: no symptoms HEENT: Repors: no symptoms Allergies: Coded Allergies: No Known Allergies (Verified , 06/22/18) Objective Last 24 Hour Vital Signs Date Time Temp Pulse Resp B/P (MAP) Pulse Ox O2 Delivery O2 Flow Rate FiO2 06/25/18 09:02 128/77 06/25/18 09:02 80 128/77 06/25/18 08:00 97.2 80 18 128/77 (94) 97 06/25/18 07:52 66 16 Room Air 21 06/25/18 04:00 97.7 82 18 123/71 (88) 95 06/25/18 04:00 80 06/25/18 00:00 97.5 87 18 127/79 (95) 93 06/25/18 00:00 75 06/24/18 21:23 77 131/75 06/24/18 21:00 Room Air 06/24/18 20:43 78 18 99 Room Air 21 06/24/18 20:33 78 16 Room Air 21 06/24/18 20:33 78 16 97 Room Air 21 06/24/18 20:00 97.2 77 16 131/75 (93) 98 06/24/18 20:00 73 06/24/18 16:20 83 06/24/18 15:53 98.4 76 18 129/65 (86) 98 Intake and Output 06/24/18 06/25/18 19:00 07:00 Intake Total 480 ml 720 ml Output Total 400 ml 550 ml Balance 80 ml 170 ml Intake Oral 480 ml 720 ml Output Urine Total 400 ml 550 ml General Appearance: WD/WN HEENT: normocephalic, atraumatic Respiratory/Chest: chest wall non-tender, lungs clear Breasts: no masses Cardiovascular: normal peripheral pulses, normal rate Abdomen: soft, non tender Genitourinary: normal external genitalia Extremities: no clubbing Neurologic/Psychiatric: second steward II-XII grossly normal Laboratory Tests 06/25/18 06:35: White Blood Count 9.4, Red Blood Count 4.56, Hemoglobin 13.4, Hematocrit 41.1, Mean Corpuscular Volume 90, Mean Corpuscular Hemoglobin 29.3, Mean Corpuscular Hemoglobin Concent 32.5, Red Cell Distribution Width 13.7, Platelet Count 224, Mean Platelet Volume 6.8, Neutrophils (%) (Auto) 71.5, Lymphocytes (%) (Auto) 20.9, Monocytes (%) (Auto) 5.4, Eosinophils (%) (Auto) 1.7, Basophils (%) (Auto ) 0.4, Sodium Level 134L, Potassium Level 4.1, Chloride Level 98, Carbon Dioxide Level 29, Anion Gap 7, Blood Urea Nitrogen 27H, Creatinine 1.3, Estimat Glomerular Filtration Rate 49.7, Glucose Level 134H, Calcium Level 9.6, Pro-B- Type Natriuretic Peptide 481H Current Medications Medications (Trade) Dose Ordered Sig/Marline Route PRN Reason Start Time Stop Time Status Last Admin Dose Admin Acetaminophen (Tylenol) 650 mg Q4H PRN ORAL Fever (temp>100.5F) 06/22/18 17:15 07/22/18 17:14 Acetaminophen/ Hydrocodone Bitart ([place] 10/325) 1 tab Q4H PRN ORAL For Pain 06/23/18 12:00 06/30/18 11:59 06/24/18 09:37 Albuterol/ Ipratropium (Albuterol/ Ipratropium) 3 ml Q4H PRN HHN Shortness of Breath 06/22/18 17:15 06/27/18 17:14 06/24/18 20:33 Aspirin (Ecotrin) 81 mg DAILY ORAL 06/24/18 09:00 07/24/18 08:59 06/25/18 09:01 Atorvastatin Calcium (Lipitor) 10 mg BEDTIME ORAL 06/22/18 21:00 07/22/18 20:59 06/24/18 21:21 Carvedilol (Coreg) 3.125 mg EVERY 12 HOURS ORAL 06/23/18 21:00 07/23/18 20:59 06/25/18 09:02 Clopidogrel Bisulfate (Plavix) 75 mg DAILY ORAL 06/23/18 09:00 07/23/18 08:59 06/25/18 09:01 Dextrose (Dextrose 50%) 25 ml Q30M PRN IV Hypoglycemia 06/22/18 17:15 07/22/18 17:14 Dextrose (Dextrose 50%) 50 ml Q30M PRN IV Hypoglycemia 06/22/18 17:15 07/22/18 17:14 Furosemide (Lasix) 40 mg DAILY IV 06/25/18 09:00 07/22/18 21:59 06/25/18 09:02 Heparin Sodium (Porcine) (Heparin 5000 units/ml) 5,000 units EVERY 12 HOURS SUBQ 06/22/18 21:00 07/22/18 20:59 06/25/18 09:07 Levothyroxine Sodium (Synthroid) 25 mcg ACBREAKFAST ORAL 06/23/18 06:30 07/23/18 06:29 06/25/18 06:16 Lisinopril (Zestril) 10 mg DAILY ORAL 06/24/18 09:00 07/24/18 08:59 06/25/18 09:02 Ondansetron HCl (Zofran) 4 mg Q6H PRN IVP Nausea & Vomiting 06/22/18 17:15 07/22/18 17:14 Polyethylene Glycol (Miralax) 17 gm DAILYPRN PRN ORAL Constipation 06/22/18 17:15 07/22/18 17:14 Spironolactone (Aldactone) 25 mg DAILY ORAL 06/24/18 09:00 07/24/18 08:59 06/25/18 09:02 Temazepam (Restoril) 15 mg HSPRN PRN ORAL Insomnia 06/22/18 17:15 06/29/18 17:14 Tizanidine HCl (Zanaflex) 2 mg EVERY 12 HOURS ORAL 06/24/18 21:15 07/24/18 21:14 06/25/18 09:02 Halina Hameed MD Jun 25, 2018 12:58
[2018-06-25 16:00] VITALS: BP 112/72
--- NOTE | 2018-06-25 16:17 | Cardiac Electrophysiology PN ---
Assessment/Plan Assessment/Plan 1. Congestive heart failure. BNP was more than 5000 and now is around 3000. Ejection fraction is only 30% to 35%. On Lasix 40 mg IV daily, Aldactone , lisinopril, and Coreg . The reason for the patient's cardiomyopathy is not clear at this time. Schedule nuclear stress test in am 2. Questionable coronary artery disease. The patient is on Aspirin,Plavix, Lipitor and Coreg 3. Chronic obstructive pulmonary disease. 4. 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 BA RN Subjective Subjective No CP or SOB in SR with PVC Objective Last 24 Hour Vital Signs Date Time Temp Pulse Resp B/P (MAP) Pulse Ox O2 Delivery O2 Flow Rate FiO2 06/25/18 09:02 128/77 06/25/18 09:02 80 128/77 06/25/18 08:00 85 06/25/18 08:00 97.2 80 18 128/77 (94) 97 06/25/18 07:52 66 16 Room Air 21 06/25/18 04:00 97.7 82 18 123/71 (88) 95 06/25/18 04:00 80 06/25/18 00:00 97.5 87 18 127/79 (95) 93 06/25/18 00:00 75 06/24/18 21:23 77 131/75 06/24/18 21:00 Room Air 06/24/18 20:43 78 18 99 Room Air 21 06/24/18 20:33 78 16 Room Air 21 06/24/18 20:33 78 16 97 Room Air 21 06/24/18 20:00 97.2 77 16 131/75 (93) 98 06/24/18 20:00 73 06/24/18 16:20 83 Intake and Output 06/24/18 06/25/18 19:00 07:00 Intake Total 480 ml 720 ml Output Total 400 ml 550 ml Balance 80 ml 170 ml Intake Oral 480 ml 720 ml Output Urine Total 400 ml 550 ml Laboratory Tests Test 06/25/18 06:35 White Blood Count 9.4 K/UL (4.8-10.8) Red Blood Count 4.56 M/UL (4.20-5.40) Hemoglobin 13.4 G/DL (12.0-16.0) Hematocrit 41.1 % (37.0-47.0) Mean Corpuscular Volume 90 FL (80-99) Mean Corpuscular Hemoglobin 29.3 PG (27.0-31.0) Mean Corpuscular Hemoglobin Concent 32.5 G/DL (32.0-36.0) Red Cell Distribution Width 13.7 % (11.6-14.8) Platelet Count 224 K/UL (150-450) Mean Platelet Volume 6.8 FL (6.5-10.1) Neutrophils (%) (Auto) 71.5 % (45.0-75.0) Lymphocytes (%) (Auto) 20.9 % (20.0-45.0) Monocytes (%) (Auto) 5.4 % (1.0-10.0) Eosinophils (%) (Auto) 1.7 % (0.0-3.0) Basophils (%) (Auto) 0.4 % (0.0-2.0) Sodium Level 134 MMOL/L (136-145) L Potassium Level 4.1 MMOL/L (3.5-5.1) Chloride Level 98 MMOL/L (98-107) Carbon Dioxide Level 29 MMOL/L (21-32) Anion Gap 7 mmol/L (5-15) Blood Urea Nitrogen 27 mg/dL (7-18) H Creatinine 1.3 MG/DL (0.55-1.30) Estimat Glomerular Filtration Rate 49.7 mL/min (>60) Glucose Level 134 MG/DL (74-106) H Calcium Level 9.6 MG/DL (8.5-10.1) Pro-B-Type Natriuretic Peptide 481 pg/mL (0-125) H Objective HEAD AND NECK: Mild JVD. LUNGS: Coarse rhonchi. CARDIOVASCULAR: Regular S1 and S2 with no gallop or murmur. ABDOMEN: Soft. EXTREMITIES: 1+ pitting edema. Kendall Gomes MD Jun 25, 2018 16:17
[2018-06-25] MEDS ORDERED: Lexiscan 0.4mg/5ml syringe IV PRN (16:20)
--- NOTE | 2018-06-25 17:55 | Internal Med Progress Note ---
Subjective Date of Service: Jun 25, 2018 Physician Name Antonio Anglin Attending Physician Charly Sandhu MD Current Medications Medications (Trade) Dose Ordered Sig/Marline Route PRN Reason Start Time Stop Time Status Last Admin Dose Admin Acetaminophen (Tylenol) 650 mg Q4H PRN ORAL Fever (temp>100.5F) 06/22/18 17:15 07/22/18 17:14 Acetaminophen/ Hydrocodone Bitart ([place] 10/325) 1 tab Q4H PRN ORAL For Pain 06/23/18 12:00 06/30/18 11:59 06/24/18 09:37 Albuterol/ Ipratropium (Albuterol/ Ipratropium) 3 ml Q4H PRN HHN Shortness of Breath 06/22/18 17:15 06/27/18 17:14 06/24/18 20:33 Aspirin (Ecotrin) 81 mg DAILY ORAL 06/24/18 09:00 07/24/18 08:59 06/25/18 09:01 Atorvastatin Calcium (Lipitor) 10 mg BEDTIME ORAL 06/22/18 21:00 07/22/18 20:59 06/24/18 21:21 Carvedilol (Coreg) 3.125 mg EVERY 12 HOURS ORAL 06/23/18 21:00 07/23/18 20:59 06/25/18 09:02 Clopidogrel Bisulfate (Plavix) 75 mg DAILY ORAL 06/23/18 09:00 07/23/18 08:59 06/25/18 09:01 Dextrose (Dextrose 50%) 25 ml Q30M PRN IV Hypoglycemia 06/22/18 17:15 07/22/18 17:14 Dextrose (Dextrose 50%) 50 ml Q30M PRN IV Hypoglycemia 06/22/18 17:15 07/22/18 17:14 Furosemide (Lasix) 40 mg DAILY IV 06/25/18 09:00 07/22/18 21:59 06/25/18 09:02 Heparin Sodium (Porcine) (Heparin 5000 units/ml) 5,000 units EVERY 12 HOURS SUBQ 06/22/18 21:00 07/22/18 20:59 06/25/18 09:07 Levothyroxine Sodium (Synthroid) 25 mcg ACBREAKFAST ORAL 06/23/18 06:30 07/23/18 06:29 06/25/18 06:16 Lisinopril (Zestril) 10 mg DAILY ORAL 06/24/18 09:00 07/24/18 08:59 06/25/18 09:02 Ondansetron HCl (Zofran) 4 mg Q6H PRN IVP Nausea & Vomiting 06/22/18 17:15 07/22/18 17:14 Polyethylene Glycol (Miralax) 17 gm DAILYPRN PRN ORAL Constipation 06/22/18 17:15 07/22/18 17:14 Regadenoson (Lexiscan) 0.4 mg ONCE PRN IV CARDIOLOGY 06/25/18 16:20 06/26/18 23:59 Spironolactone (Aldactone) 25 mg DAILY ORAL 06/24/18 09:00 07/24/18 08:59 06/25/18 09:02 Temazepam (Restoril) 15 mg HSPRN PRN ORAL Insomnia 06/22/18 17:15 06/29/18 17:14 Tizanidine HCl (Zanaflex) 2 mg EVERY 12 HOURS ORAL 06/24/18 21:15 07/24/18 21:14 06/25/18 09:02 Allergies: Coded Allergies: No Known Allergies (Verified , 06/22/18) ROS Limited/Unobtainable: No Constitutional: Reports: no symptoms HEENT: Reports: no symptoms Cardiovascular: Reports: chest pain Respiratory: Reports: no symptoms Gastrointestinal/Abdominal: Reports: no symptoms Genitourinary: Reports: no symptoms Neurologic/Psychiatric: Reports: no symptoms Subjective 68 YO F admitted for chest pain and shortness of breath. Now acute CHF exacerbation. Cover for Int Med-Dr Sandhu. Await nuclear stress test 06/26/18 Objective Last Vital Signs Date Time Temp Pulse Resp B/P (MAP) Pulse Ox O2 Delivery O2 Flow Rate FiO2 06/25/18 09:02 128/77 06/25/18 09:02 80 06/25/18 09:00 Room Air 06/25/18 08:00 97.2 18 97 06/25/18 07:52 21 Laboratory Tests Test 06/25/18 06:35 White Blood Count 9.4 K/UL (4.8-10.8) Red Blood Count 4.56 M/UL (4.20-5.40) Hemoglobin 13.4 G/DL (12.0-16.0) Hematocrit 41.1 % (37.0-47.0) Mean Corpuscular Volume 90 FL (80-99) Mean Corpuscular Hemoglobin 29.3 PG (27.0-31.0) Mean Corpuscular Hemoglobin Concent 32.5 G/DL (32.0-36.0) Red Cell Distribution Width 13.7 % (11.6-14.8) Platelet Count 224 K/UL (150-450) Mean Platelet Volume 6.8 FL (6.5-10.1) Neutrophils (%) (Auto) 71.5 % (45.0-75.0) Lymphocytes (%) (Auto) 20.9 % (20.0-45.0) Monocytes (%) (Auto) 5.4 % (1.0-10.0) Eosinophils (%) (Auto) 1.7 % (0.0-3.0) Basophils (%) (Auto) 0.4 % (0.0-2.0) Sodium Level 134 MMOL/L (136-145) L Potassium Level 4.1 MMOL/L (3.5-5.1) Chloride Level 98 MMOL/L (98-107) Carbon Dioxide Level 29 MMOL/L (21-32) Anion Gap 7 mmol/L (5-15) Blood Urea Nitrogen 27 mg/dL (7-18) H Creatinine 1.3 MG/DL (0.55-1.30) Estimat Glomerular Filtration Rate 49.7 mL/min (>60) Glucose Level 134 MG/DL (74-106) H Calcium Level 9.6 MG/DL (8.5-10.1) Pro-B-Type Natriuretic Peptide 481 pg/mL (0-125) H Intake and Output 06/24/18 06/25/18 18:59 06:59 Intake Total 480 ml 720 ml Output Total 400 ml 550 ml Balance 80 ml 170 ml Intake Oral 480 ml 720 ml Output Urine Total 400 ml 550 ml Objective PHYSICAL EXAMINATION: GENERAL: The patient is a well-developed and well-nourished female, in no apparent distress. HEENT: Eyes, pupils are equal and responsive to light and accommodation. Extraocular movements are intact. NECK: Supple without lymphadenopathy. CHEST: Lungs with scattered wheezes bilaterally and rales in bilateral bases. CARDIOVASCULAR: Regular rhythm and rate. S1 and S2 normal without murmurs, rubs, or gallops. ABDOMEN: Soft, nontender, and nondistended. Positive bowel sounds. No evidence of hepatosplenomegaly. Currently, no rebound or guarding noted. EXTREMITIES: Negative for clubbing, cyanosis, or edema. RECTAL/GENITAL: Refused. NEUROLOGIC: Cranial nerves II through XII are grossly intact without focal deficits. Motor strength is 5/5 bilaterally. Deep tendon reflexes are 2+ plantar. Assessment/Plan Assessment/Plan ASSESSMENT: This is a 68-year-old female with: 1. Shortness of breath. 2. Chest pain. 3. Hypertension. 4. Congestive heart failure. 5. Cerebrovascular disease. 6. Hypothyroidism. 7. Coronary artery disease. 8. Right hemiparesis. TREATMENT: 1. Shortness of breath/chest pain. A Cardiology consultation has been obtained with Dr. Gomes. We will follow recommendation of Cardiology. Cardiac Nuclear stress test scheduled 06/26/18 2. Hypertension. Continue lisinopril and Coreg as above. 3. Acute exacerbation of congestive heart failure. Echo-LVEF=30-35%. BNP >5000 ; now 3000 As above, Cardiology consultation has been obtained with Dr. Kendall Gomes. Continue lasix 4. Cerebrovascular disease. 5. Hypothyroidism. Continue Levoxyl as above. 6. Coronary artery disease. 7. Right hemiparesis. Antonio Anglin MD Jun 25, 2018 17:55
--- NOTE | 2018-06-25 19:18 | NUR ---
HAND-OFF: Report given to JERZY Anne.
--- NOTE | 2018-06-25 19:19 | NUR ---
NURSE NOTES: Received report from JERZY Zhu. Patient in bed awake showing no signs of acute distress. Respiration even and non labored on room air. No SOB. Vital stable. Baltazar cath patent, intact and draining. Bed in lowest possible position. Call light within reach. All needs attended and met. Will continue to monitor.
[2018-06-25 20:00] VITALS: BP 115/66
[2018-06-26] VITALS: BP 113/59
[2018-06-26 04:00] VITALS: BP 118/62
[2018-06-26] MEDS: Levothyroxine 25mcg tab ORAL SCH (06:31)
[2018-06-26 07:13] LABS: BASOPHILS % (AUTO) 0.5 % (0.0-2.0); EOSINOPHILS % (AUTO) 2.5 % (0.0-3.0); HEMATOCRIT 38.6 % (37.0-47.0); HEMOGLOBIN 12.6 G/DL (12.0-16.0); LYMPHOCYTES % (AUTO) 20.9 % (20.0-45.0); MEAN CORPUSCULAR VOLUME 90 FL (80-99); MONOCYTES % (AUTO) 5.9 % (1.0-10.0); NEUTROPHILS % (AUTO) 70.3 % (45.0-75.0); PLATELET COUNT 239 K/UL (150-450); RED BLOOD COUNT 4.28 M/UL (4.20-5.40); RED CELL DISTRIBUTION WIDTH 13.7 % (11.6-14.8); WHITE BLOOD COUNT 10.2 K/UL (4.8-10.8)
[2018-06-26 07:38] LABS: ANION GAP 9 mmol/L (5-15); BLOOD UREA NITROGEN 38 mg/dL (7-18); CALCIUM 9.4 MG/DL (8.5-10.1); CARBON DIOXIDE 27 MMOL/L (21-32); CHLORIDE 100 MMOL/L (98-107); CREATININE 1.5 MG/DL (0.55-1.30); SODIUM 136 MMOL/L (136-145)
--- NOTE | 2018-06-26 07:56 | NUR ---
HAND-OFF: Report given to JERZY Mays.
--- NOTE | 2018-06-26 07:57 | NUR ---
NURSE NOTES: Received report from JERZY Hodgson. Pt is awake and resting in bed. In no acute distress. Bed in lowest position, call light within reach. Will continue plan of care.
[2018-06-26 08:00] VITALS: BP 116/60
[2018-06-26] MEDS: Aspirin EC 81mg tab ORAL SCH (09:11)
[2018-06-26] MEDS: Spironolactone 25mg tab ORAL SCH (09:11)
[2018-06-26] MEDS: Lisinopril 10mg tab ORAL SCH (09:12)
[2018-06-26] MEDS: Heparin 5000 units/ml inj SUBQ SCH (09:18)
--- NOTE | 2018-06-26 10:49 | NUR ---
NURSE NOTES: Pt left unit for nuclear med imaging, accompanied by Matt from [facility].
--- NOTE | 2018-06-26 11:10 | NUR ---
NURSE NOTES: Received report from JERZY Mays. Pt is sitting up in bed with family at her bed side. Bed is in lowest position, side rails up X2, and call light is within reach. Will continue to monitor.
--- NOTE | 2018-06-26 11:14 | Pulmonology Progress Note ---
Assessment/Plan Problems: (1) ACS (acute coronary syndrome) (2) COPD (chronic obstructive pulmonary disease) (3) CAD (coronary artery disease) (4) HTN (hypertension) (5) Hypothyroidism Assessment/Plan improving Fluid balance is -3.3 liter on lasix to 40 QD IV hold today to give kidneys a break. respiratory treatment monitor BP bnp decreasing titrate fio2 to sat of 92% dvt prophylaxis. dc home. Subjective ROS Limited/Unobtainable: No Constitutional: Reports: no symptoms HEENT: Repors: no symptoms Respiratory: Reports: no symptoms Cardiovascular: Reports: no symptoms Allergies: Coded Allergies: No Known Allergies (Verified , 06/22/18) Objective Last 24 Hour Vital Signs Date Time Temp Pulse Resp B/P (MAP) Pulse Ox O2 Delivery O2 Flow Rate FiO2 06/26/18 09:12 117/60 06/26/18 09:00 Room Air 06/26/18 08:09 66 18 Room Air 21 06/26/18 08:00 81 06/26/18 08:00 97.7 81 18 116/60 (78) 98 06/26/18 04:00 98.3 87 18 118/62 (80) 97 06/26/18 04:00 78 06/26/18 00:00 74 06/26/18 00:00 97.2 73 18 113/59 (77) 97 06/25/18 21:00 Room Air 06/25/18 20:28 76 18 Room Air 21 06/25/18 20:28 79 115/66 06/25/18 20:00 97.5 79 19 115/66 (82) 98 06/25/18 20:00 86 06/25/18 16:00 97.5 74 16 112/72 (85) 96 06/25/18 16:00 79 06/25/18 12:00 78 06/25/18 12:00 97.0 79 18 119/75 (90) 95 Intake and Output 06/25/18 06/26/18 19:00 07:00 Intake Total 360 ml Output Total 900 ml 575 ml Balance -540 ml -575 ml Intake Oral 360 ml Output Urine Total 900 ml 575 ml # Bowel Movements 1 General Appearance: WD/WN HEENT: normocephalic Respiratory/Chest: chest wall non-tender, lungs clear Breasts: no masses Cardiovascular: normal peripheral pulses Abdomen: normal bowel sounds, soft, non tender Genitourinary: normal external genitalia Skin: no rash Laboratory Tests 06/26/18 06:30: White Blood Count 10.2, Red Blood Count 4.28, Hemoglobin 12.6, Hematocrit 38.6, Mean Corpuscular Volume 90, Mean Corpuscular Hemoglobin 29.5, Mean Corpuscular Hemoglobin Concent 32.7, Red Cell Distribution Width 13.7, Platelet Count 239, Mean Platelet Volume 7.1, Neutrophils (%) (Auto) 70.3, Lymphocytes (%) (Auto) 20.9, Monocytes (%) (Auto) 5.9, Eosinophils (%) (Auto) 2.5, Basophils (%) (Auto ) 0.5, Sodium Level 136, Potassium Level 4.0, Chloride Level 100, Carbon Dioxide Level 27, Anion Gap 9, Blood Urea Nitrogen 38H, Creatinine 1.5H, Estimat Glomerular Filtration Rate 42.1, Glucose Level 122H, Calcium Level 9.4 Current Medications Medications (Trade) Dose Ordered Sig/Marline Route PRN Reason Start Time Stop Time Status Last Admin Dose Admin Acetaminophen (Tylenol) 650 mg Q4H PRN ORAL Fever (temp>100.5F) 06/22/18 17:15 07/22/18 17:14 Acetaminophen/ Hydrocodone Bitart (Candor 10/325) 1 tab Q4H PRN ORAL For Pain 06/23/18 12:00 06/30/18 11:59 06/24/18 09:37 Albuterol/ Ipratropium (Albuterol/ Ipratropium) 3 ml Q4H PRN HHN Shortness of Breath 06/22/18 17:15 06/27/18 17:14 06/24/18 20:33 Aspirin (Ecotrin) 81 mg DAILY ORAL 06/24/18 09:00 07/24/18 08:59 06/26/18 09:11 Atorvastatin Calcium (Lipitor) 10 mg BEDTIME ORAL 06/22/18 21:00 07/22/18 20:59 06/25/18 20:28 Carvedilol (Coreg) 3.125 mg EVERY 12 HOURS ORAL 06/23/18 21:00 07/23/18 20:59 06/25/18 20:28 Clopidogrel Bisulfate (Plavix) 75 mg DAILY ORAL 06/23/18 09:00 07/23/18 08:59 06/26/18 09:11 Dextrose (Dextrose 50%) 25 ml Q30M PRN IV Hypoglycemia 06/22/18 17:15 07/22/18 17:14 Dextrose (Dextrose 50%) 50 ml Q30M PRN IV Hypoglycemia 06/22/18 17:15 07/22/18 17:14 Furosemide (Lasix) 40 mg DAILY IV 06/25/18 09:00 07/22/18 21:59 06/26/18 09:52 Heparin Sodium (Porcine) (Heparin 5000 units/ml) 5,000 units EVERY 12 HOURS SUBQ 06/22/18 21:00 07/22/18 20:59 06/26/18 09:18 Levothyroxine Sodium (Synthroid) 25 mcg ACBREAKFAST ORAL 06/23/18 06:30 07/23/18 06:29 06/26/18 06:31 Lisinopril (Zestril) 10 mg DAILY ORAL 06/24/18 09:00 07/24/18 08:59 06/26/18 09:12 Ondansetron HCl (Zofran) 4 mg Q6H PRN IVP Nausea & Vomiting 06/22/18 17:15 07/22/18 17:14 Polyethylene Glycol (Miralax) 17 gm DAILYPRN PRN ORAL Constipation 06/22/18 17:15 07/22/18 17:14 Regadenoson (Lexiscan) 0.4 mg ONCE PRN IV CARDIOLOGY 06/25/18 16:20 06/26/18 23:59 Spironolactone (Aldactone) 25 mg DAILY ORAL 06/24/18 09:00 07/24/18 08:59 06/26/18 09:11 Temazepam (Restoril) 15 mg HSPRN PRN ORAL Insomnia 06/22/18 17:15 06/29/18 17:14 Tizanidine HCl (Zanaflex) 2 mg EVERY 12 HOURS ORAL 06/24/18 21:15 07/24/18 21:14 06/26/18 09:13 Halina Hameed MD Jun 26, 2018 11:14
--- NOTE | 2018-06-26 11:22 | NUR ---
HAND-OFF: Report given to JERZY Matute.
[2018-06-26] MEDS: HYDROcodone/Acetamin 10/325 tab ORAL PRN (12:49)
--- NOTE | 2018-06-26 15:35 | Diagnostic Imaging Report ---
Indications: Chest pain, congestive heart failure Technique: Single day single isotope protocol utilized. Initially, resting images obtained using IV administration 10.4, 10.4 millicuries 99M technetium Myoview. Subsequently, patient underwent lexiscan stress testing. See cardiology report for details. During Lexiscan infusion, IV administration 31.9 mCi 99 M technetium Myoview. SPECT and planar images obtained. SPECT images gated to 8 phases of the cardiac cycle were also obtained, and reformatted into cine images for evaluation of ejection fraction. Comparison: 06/02/2012 Findings: Per cardiology report, patient experienced no chest pain during infusion. Per cardiology report, resting EKG demonstrates normal sinus rhythm with incomplete left bundle-branch block. No significant ST-T wave changes noted during infusion. Imaging demonstrate very questionable reversible perfusion defect at the inferior aspect of the apex, only appreciable on the coronal long axis images. There is also very questionable fixed perfusion defect at the upper portion of the apex extending into the anterior wall, likewise appreciable only on the coronal long axis images. There is very mild left ventricular dilatation. Calculated post stress ejection fraction 35%. Gated images demonstrate global hypokinesis which is slightly greater in the septal wall. Impression: Nonischemic clinical response to pharmacologic stress, per cardiology report Nonischemic electrocardiographic response to pharmacologic stress, per cardiology report Very questionable tiny apical reversible post stress perfusion defect as described, if real could represent a small focus of ischemia but suspect artifactual Very questionable tiny fixed reversible apical post stress perfusion defect, if real could represent a small infarct but suspect artifactual No other evidence of ischemia, at level of stress attained Subnormal-35%-ejection fraction. Ejection fraction abnormality is out of proportion to the degree of perfusion abnormality, could indicate nonischemic cardiomyopathy. Correlate with clinical history and findings Calculated post stress ejection fraction %
[2018-06-26 16:00] VITALS: BP 111/77
--- NOTE | 2018-06-26 17:00 | Cardiac Electrophysiology PN ---
Assessment/Plan Assessment/Plan 1. Congestive heart failure. BNP was more than 5000 and now is around 3000. Ejection fraction is only 30% to 35%. On Lasix 40 mg IV daily, Aldactone , lisinopril, and Coreg . The reason for the patient's cardiomyopathy is likely nonischemic as nuclear stress test today showed only questionable tiny apical ischemia/scar 2. Questionable coronary artery disease. On Aspirin,Plavix, Lipitor and Coreg 3. Chronic obstructive pulmonary disease. 4. 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 BA RN Subjective Subjective No CP or SOB in SR with PVC. Had nuclear stress test today Objective Last 24 Hour Vital Signs Date Time Temp Pulse Resp B/P (MAP) Pulse Ox O2 Delivery O2 Flow Rate FiO2 06/26/18 16:00 97.3 73 16 111/77 (88) 98 06/26/18 13:32 97.7 06/26/18 12:00 72 06/26/18 09:12 117/60 06/26/18 09:00 Room Air 06/26/18 08:09 66 18 Room Air 21 06/26/18 08:00 81 06/26/18 08:00 97.7 81 18 116/60 (78) 98 06/26/18 04:00 98.3 87 18 118/62 (80) 97 06/26/18 04:00 78 06/26/18 00:00 74 06/26/18 00:00 97.2 73 18 113/59 (77) 97 06/25/18 21:00 Room Air 06/25/18 20:28 76 18 Room Air 21 06/25/18 20:28 79 115/66 06/25/18 20:00 97.5 79 19 115/66 (82) 98 06/25/18 20:00 86 Intake and Output 06/25/18 06/26/18 19:00 07:00 Intake Total 360 ml Output Total 900 ml 575 ml Balance -540 ml -575 ml Intake Oral 360 ml Output Urine Total 900 ml 575 ml # Bowel Movements 1 Laboratory Tests Test 06/26/18 06:30 White Blood Count 10.2 K/UL (4.8-10.8) Red Blood Count 4.28 M/UL (4.20-5.40) Hemoglobin 12.6 G/DL (12.0-16.0) Hematocrit 38.6 % (37.0-47.0) Mean Corpuscular Volume 90 FL (80-99) Mean Corpuscular Hemoglobin 29.5 PG (27.0-31.0) Mean Corpuscular Hemoglobin Concent 32.7 G/DL (32.0-36.0) Red Cell Distribution Width 13.7 % (11.6-14.8) Platelet Count 239 K/UL (150-450) Mean Platelet Volume 7.1 FL (6.5-10.1) Neutrophils (%) (Auto) 70.3 % (45.0-75.0) Lymphocytes (%) (Auto) 20.9 % (20.0-45.0) Monocytes (%) (Auto) 5.9 % (1.0-10.0) Eosinophils (%) (Auto) 2.5 % (0.0-3.0) Basophils (%) (Auto) 0.5 % (0.0-2.0) Sodium Level 136 MMOL/L (136-145) Potassium Level 4.0 MMOL/L (3.5-5.1) Chloride Level 100 MMOL/L (98-107) Carbon Dioxide Level 27 MMOL/L (21-32) Anion Gap 9 mmol/L (5-15) Blood Urea Nitrogen 38 mg/dL (7-18) H Creatinine 1.5 MG/DL (0.55-1.30) H Estimat Glomerular Filtration Rate 42.1 mL/min (>60) Glucose Level 122 MG/DL (74-106) H Calcium Level 9.4 MG/DL (8.5-10.1) Objective HEAD AND NECK: Mild JVD. LUNGS: Coarse rhonchi. CARDIOVASCULAR: Regular S1 and S2 with no gallop or murmur. ABDOMEN: Soft. EXTREMITIES: 1+ pitting edema. Kendall Gomes MD Jun 26, 2018 17:00
--- NOTE | 2018-06-26 17:20 | Internal Med Progress Note ---
Subjective Physician Name Charly Sandhu Attending Physician Charly Sandhu MD Current Medications Medications (Trade) Dose Ordered Sig/Marline Route PRN Reason Start Time Stop Time Status Last Admin Dose Admin Acetaminophen (Tylenol) 650 mg Q4H PRN ORAL Fever (temp>100.5F) 06/22/18 17:15 07/22/18 17:14 Acetaminophen/ Hydrocodone Bitart ([place] 10/325) 1 tab Q4H PRN ORAL For Pain 06/23/18 12:00 06/30/18 11:59 06/26/18 12:49 Albuterol/ Ipratropium (Albuterol/ Ipratropium) 3 ml Q4H PRN HHN Shortness of Breath 06/22/18 17:15 06/27/18 17:14 06/24/18 20:33 Aspirin (Ecotrin) 81 mg DAILY ORAL 06/24/18 09:00 07/24/18 08:59 06/26/18 09:11 Atorvastatin Calcium (Lipitor) 10 mg BEDTIME ORAL 06/22/18 21:00 07/22/18 20:59 06/25/18 20:28 Carvedilol (Coreg) 3.125 mg EVERY 12 HOURS ORAL 06/23/18 21:00 07/23/18 20:59 06/25/18 20:28 Clopidogrel Bisulfate (Plavix) 75 mg DAILY ORAL 06/23/18 09:00 07/23/18 08:59 06/26/18 09:11 Dextrose (Dextrose 50%) 25 ml Q30M PRN IV Hypoglycemia 06/22/18 17:15 07/22/18 17:14 Dextrose (Dextrose 50%) 50 ml Q30M PRN IV Hypoglycemia 06/22/18 17:15 07/22/18 17:14 Heparin Sodium (Porcine) (Heparin 5000 units/ml) 5,000 units EVERY 12 HOURS SUBQ 06/22/18 21:00 07/22/18 20:59 06/26/18 09:18 Levothyroxine Sodium (Synthroid) 25 mcg ACBREAKFAST ORAL 06/23/18 06:30 07/23/18 06:29 06/26/18 06:31 Lisinopril (Zestril) 10 mg DAILY ORAL 06/24/18 09:00 07/24/18 08:59 06/26/18 09:12 Ondansetron HCl (Zofran) 4 mg Q6H PRN IVP Nausea & Vomiting 06/22/18 17:15 07/22/18 17:14 Polyethylene Glycol (Miralax) 17 gm DAILYPRN PRN ORAL Constipation 06/22/18 17:15 07/22/18 17:14 Regadenoson (Lexiscan) 0.4 mg ONCE PRN IV CARDIOLOGY 06/25/18 16:20 06/26/18 23:59 Spironolactone (Aldactone) 25 mg DAILY ORAL 06/24/18 09:00 07/24/18 08:59 06/26/18 09:11 Temazepam (Restoril) 15 mg HSPRN PRN ORAL Insomnia 06/22/18 17:15 06/29/18 17:14 Tizanidine HCl (Zanaflex) 2 mg EVERY 12 HOURS ORAL 06/24/18 21:15 07/24/18 21:14 06/26/18 09:13 Allergies: Coded Allergies: No Known Allergies (Verified , 06/22/18) Subjective Awake, alert, no acute distress, denies any chest pain, denies any shortness of breath, Objective Last Vital Signs Date Time Temp Pulse Resp B/P (MAP) Pulse Ox O2 Delivery O2 Flow Rate FiO2 06/26/18 16:00 97.3 73 16 111/77 (88) 98 06/26/18 09:00 Room Air 06/26/18 08:09 21 Laboratory Tests Test 06/26/18 06:30 White Blood Count 10.2 K/UL (4.8-10.8) Red Blood Count 4.28 M/UL (4.20-5.40) Hemoglobin 12.6 G/DL (12.0-16.0) Hematocrit 38.6 % (37.0-47.0) Mean Corpuscular Volume 90 FL (80-99) Mean Corpuscular Hemoglobin 29.5 PG (27.0-31.0) Mean Corpuscular Hemoglobin Concent 32.7 G/DL (32.0-36.0) Red Cell Distribution Width 13.7 % (11.6-14.8) Platelet Count 239 K/UL (150-450) Mean Platelet Volume 7.1 FL (6.5-10.1) Neutrophils (%) (Auto) 70.3 % (45.0-75.0) Lymphocytes (%) (Auto) 20.9 % (20.0-45.0) Monocytes (%) (Auto) 5.9 % (1.0-10.0) Eosinophils (%) (Auto) 2.5 % (0.0-3.0) Basophils (%) (Auto) 0.5 % (0.0-2.0) Sodium Level 136 MMOL/L (136-145) Potassium Level 4.0 MMOL/L (3.5-5.1) Chloride Level 100 MMOL/L (98-107) Carbon Dioxide Level 27 MMOL/L (21-32) Anion Gap 9 mmol/L (5-15) Blood Urea Nitrogen 38 mg/dL (7-18) H Creatinine 1.5 MG/DL (0.55-1.30) H Estimat Glomerular Filtration Rate 42.1 mL/min (>60) Glucose Level 122 MG/DL (74-106) H Calcium Level 9.4 MG/DL (8.5-10.1) Intake and Output 06/25/18 06/26/18 19:00 07:00 Intake Total 360 ml Output Total 900 ml 575 ml Balance -540 ml -575 ml Intake Oral 360 ml Output Urine Total 900 ml 575 ml # Bowel Movements 1 Objective General: No acute distress, awake and alert HEENT: NCAT, sclera anicteric, PERRL, EOMI, positive strabismus. Neck: Supple, no significant jugular venous distention, Lungs: Good inspiratory effort, no accessory muscle use, clear to auscultation bilaterally, no Wheeze or Rales. Heart: Regular rate and rhythm, normal S1/S2, no murmur. Abdomen: soft, nontender, nondistended. Normoactive bowel sounds. : Baltazar catheter. Extremities: No Cyanosis , clubbing or edema. Neuro: A&O x 3, Able to move all extremities, right side is weaker than left side. Skin: warm, no rashes or lesions Psych: Normal mood and affect Assessment/Plan Assessment/Plan 1. Syncopal episode. 2. Bradycardia. 3. Hypertension. 4. Parkinson disease. 5. Hypercholesterolemia. 6. History of CVA with a right-sided hemiparesis. Plan: Stress test is nonischemic. Consider discharge home today to follow-up my office next week. Charly Sandhu MD Jun 26, 2018 17:20
--- NOTE | 2018-06-26 18:53 | NUR ---
NURSE NOTES: Pt has voided after cotton removal.
--- NOTE | 2018-06-26 19:20 | NUR ---
NURSE NOTES: Pt was discharged per doctors orders. Heart monitor removed and returned to [place]. Iv removed. No redness or swelling noted. Belongings with pt. Belongings list in chart. Baltazar was discontinued and pt voided after removal. Pt was picked up by daughter.
--- NOTE | 2018-06-26 19:21 | NUR ---
CASE MANAGEMENT: REVIEW SI: ACS . CHF T 97.3 HR 73 RR 16 BP 111/77 SAT 98% ROOM AIR BUN 38 CR 1.5 IS: LASIX IV X1 ALDACTONE PO QD COREG PO QD PLAVIX PO QD HEPARIN SQ Q12HR TELEMETRY UNIT STATUS DCP: PATIENT IS FROM HOME
--- NOTE | 2018-06-29 10:18 | Discharge Summary ---
Discharge Summary Discharge Summary _ DATE OF ADMISSION: 06/22/2018 DATE OF DISCHARGE: 06/26/2018 DISCHARGED BY: Dr. Sandhu REASON FOR ADMISSION: 68-year-old female with past medical history of congestive heart failure, hypertension, COPD, presented to emergency department complaining of several days of dyspnea on exertion, chest pain and orthopnea. Patient was taking Lasix but felt it was not working. Patient reported mild edema of her ankles, but her main concern was shortness of breath and chest pain. Pain rated 7 out of 10 and described as pressure-like , with radiation to left shoulder. She denied palpitations, nausea, vomiting or diarrhea. She denied fever and chills. Nno dysuria. Upon evaluation vital signs were stable except somewhat elevated blood pressure 146/92. Laboratory workup revealed no leukocytosis, stable hemoglobin and hematocrit . Urinalysis revealed no evidence of urinary tract infection. BUN 26 creatinine 1.3 . Troponin 0 0.006, proBNP 5056. EKG revealed sinus rhythm. Chest x-ray revealed evidence of congestive heart failure. In the emergency department patient was received aspirin, provided with Lasix , Nitro-paste. Analgesic provided. Baltazar catheter was placed. Patient was transferred to telemetry floor for further management. CONSULTANTS: air traffic coordinator Dr. Shaw pulmonary Dr. Hameed [facility] COURSE: Patient admitted to telemetry floor. Serial troponin were negative. EKG revealed no acute ischemic changes. Patient was ruled out for acute VA. Lead Mechanical Engineer and rehabilitation coordinator closely followed. Echocardiogram revealed reduced ejection fraction of 30-35% with global left ventricular hypokinesis. Right ventricular systolic pressure of 19. Supplemental oxygen provided as needed to keep pulse oximetry above 92%. Pulmonary toilet provided as needed. Venous duplex bilateral lower extremity revealed no evidence of acute DVT. Anti-failure medication regimen was continued with beta-jose, NEEL inhibitor, Lasix and Aldactone. Volumes and and cardiorenal parameters were closely monitored. Pro BNP trended down from initial 5056 down to 481. Myocardial perfusion scan revealed very questionable tiny reversible apical post stress perfusion defect , probably artifactual. Per air traffic coordinator, cardiomyopathy was nonischemic. Patient was continued on antiplatelet therapy with aspirin, Plavix and Lipitor. Supportive care provided. Bowel regimen instituted VT prophylaxis provided. Patient clinically stabilized and was ready for discharge home . FINAL DIAGNOSES: Acute exacerbation of congestive heart failure , systolic dysfunction Nonischemic cardiomyopathy COPD Hypertension History of CVA with right-sided hemiparesis Parkinson disease Hypercholesterolemia Hypothyroidism DISCHARGE MEDICATIONS: See Medication Reconciliation list. DISCHARGE INSTRUCTIONS: Patient was discharged home . Follow up with primary care provider in one week. I have been assigned to dictate discharge summary for this account. I was not involved in the patient's management. Jolie Cordova NP Jun 29, 2018 10:18
== END 2018-06-26 19:15 | disposition home or self-care (01) | DRG 292 ==
LOC: EMR 14:30 → 2E 14:34 → EDBEDREQ 14:43
DX: I11.0 Hypertensive heart disease with heart failure (principal); I69.351 Hemiplegia and hemiparesis following cerebral infarction affecting right dominant side; I50.23 Acute on chronic systolic (congestive) heart failure; I10 Essential (primary) hypertension; I25.10 Atherosclerotic heart disease of native coronary artery without angina pectoris; Z79.82 Long term (current) use of aspirin; E03.9 Hypothyroidism, unspecified; I42.8 Other cardiomyopathies; G20 Parkinson's disease; E78.00 Pure hypercholesterolemia, unspecified; Z87.891 Personal history of nicotine dependence; B02.9 Zoster without complications; J44.9 Chronic obstructive pulmonary disease, unspecified; Z79.02 Long term (current) use of antithrombotics/antiplatelets
CPT/HCPCS: 36415; 71045; 78452; 80048; 80053; 80069; 81003; 82550; 82962; 83880; 84484; 85025; 85610; 85730; 93005; 93017; 93306; 93970; 94640; 94664; 94760; 96374; 96375; 99285; J2785; J7620

== ENCOUNTER → 2018-07-27 | Outpatient (CLI) | payer MEDICARE, MEDICAID ==
[~2018-07-27] MED LIST changes: +ALPHAGAN P5 M2 OP; +ASPIR 8181 MG ORAL; +LEVOTHYROXINE200 MCG IV; +LIPITOR80 MG ORAL; +RHOPRESSA2.5 ML OP; +SYMBICORT 16010.2 G1 IH; +TIZANIDINE HCL2 M2 PO
[2018-07-27 09:32] LABS: BASOPHILS % (AUTO) 0.7 % (0.0-2.0); EOSINOPHILS % (AUTO) 1.7 % (0.0-3.0); HEMATOCRIT 36.5 % (37.0-47.0); HEMOGLOBIN 12.1 G/DL (12.0-16.0); LYMPHOCYTES % (AUTO) 21.9 % (20.0-45.0); MEAN CORPUSCULAR VOLUME 89 FL (80-99); MONOCYTES % (AUTO) 5.4 % (1.0-10.0); NEUTROPHILS % (AUTO) 70.2 % (45.0-75.0); PLATELET COUNT 172 K/UL (150-450); RED BLOOD COUNT 4.12 M/UL (4.20-5.40); WHITE BLOOD COUNT 8.7 K/UL (4.8-10.8)
[2018-07-27 09:53] LABS: ALANINE AMINOTRANSFERASE 25 U/L (12-78); ALBUMIN 3.5 G/DL (3.4-5.0); ALBUMIN/GLOBULIN RATIO 0.7 (1.0-2.7); ALKALINE PHOSPHATASE 122 U/L (46-116); ANION GAP 13 mmol/L (5-15); ASPARTATE AMINO TRANSFERASE 22 U/L (15-37); BILIRUBIN,TOTAL 0.3 MG/DL (0.2-1.0); BLOOD UREA NITROGEN 38 mg/dL (7-18); CALCIUM 8.9 MG/DL (8.5-10.1); CARBON DIOXIDE 23 MMOL/L (21-32); CHLORIDE 100 MMOL/L (98-107); CHOLESTEROL 135 MG/DL (< 200); CREATININE 1.7 MG/DL (0.55-1.30); HDL CHOLESTEROL 49 MG/DL (40-60); SODIUM 136 MMOL/L (136-145); TRIGLYCERIDES 156 MG/DL (30-150)
--- NOTE | 2018-07-27 13:49 | Diagnostic Imaging Report ---
Clinical Indication: Shortness of breath, suspected sarcoidosis Technique: Spiral acquisition obtained through the chest. No IV contrast utilized, per high resolution protocol. Axial 5 x 5 mm slices were reconstructed. Axial 1 mm thick slices were reconstructed using high resolution algorithm at 10 mm intervals. Multiplanar reconstructions generated. Total dose length product 900.62 mGycm. CTDIvol(s) 25.48 mGy. Dose reduction achieved using automated exposure control Comparison: 02/06/2009 Findings: There are reticular and patchy airspace opacities involving the posterior inferior left lower lobe extending into the lingula. The extent of disease is markedly decreased from the previous study, the previous dense consolidation is no longer evident. There are similar reticular and faint groundglass opacities and opacity distribution occupying a small portion of the left lower lobe as well. The right lung and pleural space are clear except for a small area of probable scarring in the medial right middle lobe and a calcified granuloma again demonstrated at the right lung base. The high-resolution images also demonstrate the above described findings. No general interstitial septal thickening, nodularity, bronchiectasis, honeycombing are demonstrated. A single small cystic space is seen in the left costophrenic sulcus. Some very subtle subpleural cystic spaces are seen just below the right lung apex laterally. Prominent precarinal node measures 2.4 cm long axis dimension, somewhat more conspicuous than previously. No frankly enlarged nodes are demonstrated. Previously enlarged aortopulmonary window nodes are considerably smaller than on the previous exam. No hilar lymphadenopathy. There is a small anterior wall and inferior wall pericardial effusion which measures up to 17 mm thick in the inferior wall. The heart size is normal. The included thyroid is unremarkable. No axillary or chest wall mass or adenopathy. The included upper abdomen demonstrate bilateral renal sinus calcifications which are likely arterial. The bones are unremarkable. Impression: Interstitial and airspace opacities in the inferior left upper lobe and left lower lobe, as described. These are nonspecific, could represent areas of active inflammation or postinflammatory changes. Typical parenchymal findings of sarcoidosis are not evident Single prominent but not frankly enlarged precarinal lymph node noted. Previously demonstrated enlarged aortopulmonary window nodes are now normal in size. No hilar or right paratracheal lymphadenopathy the to suggest sarcoidosis noted. Small cystic spaces as described in the right lung apex and left costophrenic sulcus, could represent sequelae of prior inflammation or minimal COPD changes Evidence old granulomatous disease in the right lung Pericardial effusion The CT scanner at [facility] is accredited by the [employer] and the scans are performed using protocols designed to limit radiation exposure to as low as reasonably achievable to attain images of sufficient resolution adequate for diagnostic evaluation.
--- NOTE | 2018-07-27 14:42 | Diagnostic Imaging Report ---
Indication: Chronic right hip pain Technique: 2 views of the right hip Comparison: none Findings: There is degenerative narrowing of the right hip joint. No acute fractures. No dislocations. The left hip joint space is preserved. Impression: Degenerative changes. No acute bony trauma
--- NOTE | 2018-07-27 14:43 | Diagnostic Imaging Report ---
Indication: Chronic pain Technique: 3 views of the right knee Comparison: None Findings: No suprapatellar effusion. No acute fractures. No dislocations. There is mild narrowing of the lateral joint compartment. There are medial degenerative proliferative changes Impression: Mild lateral joint compartment narrowing. Medial degenerative proliferative changes
== END | disposition home or self-care (01) ==
LOC: LAB 08:08
DX: E11.9 Type 2 diabetes mellitus without complications (principal); I10 Essential (primary) hypertension; E03.9 Hypothyroidism, unspecified; E78.00 Pure hypercholesterolemia, unspecified; I50.9 Heart failure, unspecified; I31.3 Pericardial effusion (noninflammatory); G89.29 Other chronic pain; M25.551 Pain in right hip; M25.561 Pain in right knee
CPT/HCPCS: 36415; 71250; 80053; 80061; 82306; 82607; 82746; 83036; 83090; 84436; 84443; 84550; 85025; 85610; 85651; 85730; 86039; 86063; 86140; 86431

== ENCOUNTER 2018-08-16 12:38 | Emergency (ER) | payer MEDICARE, MEDICAID ==
[~2018-08-16] VITALS: Ht 162.6 cm; Wt 98.9 kg
--- NOTE | 2018-08-16 12:59 | Emergency Room Report ---
History of Present Illness General Chief Complaint: Skin Rash/Abscess Source: Patient Present Illness HPI 68-year-old female with history of hypertension and acute coronary artery disease currently controlled with medications here complaining of pain and pruritus on the left lower abdomen and between her abdominal wall and inguinal fold. Patient is obese and has an infected rash in her inguinal fold. Her chills, pain radiation, rating the pain upon palpation and a 5 out of 10. Denies vaginal discharge, suprapubic pain pressure, nausea vomiting, S OB, palpitation, chest pain and all other associated symptoms. 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 Denies all other associated symptoms. ROS: denies: fatigue, low energy, confusion denies: nausea, vomiting, abdominal pain, urinary frequency, dysuria denies: sob, chest pain, dizziness, blurred vision, headache denies: muscle pain, tingling/numbness denies: sore throat, rhinorrea, fever, chills, ear pain denies: anxiety, depresion, SI, HI, drug use Allergies: Coded Allergies: No Known Allergies (Verified , 06/22/18) Patient History Past Medical History: see triage record Past Surgical History: unable to obtain Pertinent Family History: none Now: No Immunizations: UTD Reviewed Nursing Documentation: PMH: Agreed; PSxH: Agreed Nursing Documentation-PMH Past Medical History: No History, Except For Hx Cardiac Problems: Yes - CHF Hx Hypertension: Yes Hx Pacemaker: No Hx COPD: Yes Hx Diabetes: No Hx Cancer: No Hx Gastrointestinal Problems: No Hx Neurological Problems: No Hx Cerebrovascular Accident: Yes Hx Neurologic Surgery: No Review of Systems All Other Systems: negative except mentioned in HPI Physical Exam Vital Signs Date Time Temp Pulse Resp B/P (MAP) Pulse Ox O2 Delivery O2 Flow Rate FiO2 08/16/18 12:42 98.4 95 16 145/88 94 Room Air Sp02 EP Interpretation: reviewed, normal General Appearance: normal inspection, well appearing, no apparent distress Head: normocephalic, atraumatic Eyes: bilateral eye normal inspection, bilateral eye PERRL ENT: normal ENT inspection, hearing grossly normal, normal pharynx Neck: normal inspection, supple Respiratory: normal inspection, chest non-tender, lungs clear, no rhonchi, no respiratory distress, no wheezing Cardiovascular #1: normal inspection, normal peripheral pulses, regular rate, rhythm, no edema, normal capillary refill Gastrointestinal: soft, no mass, no guarding, other - Infection of folds between abdominal wall and inguinal area Rectal: deferred Genitourinary: no CVA tenderness Musculoskeletal: normal inspection, back normal, digits/nails normal, gait/ station normal Neurologic: normal inspection, alert, oriented x3 Psychiatric: normal inspection, judgement/insight normal Skin: well hydrated, normal turgor, other - Section of folds in between abdominal wall and left lower inguinal, no pus drainage noted is warm to touch Lymphatic: normal inspection, no adenopathy Medical Decision Making PA Attestation All my diagnosis and treatment plans were reviewed ad discussed with my supervising physician Dr. Coker Diagnostic Impression: Primary Impression: Intertrigo Additional Impression: Abdominal wall cellulitis ER Course 68-year-old female with history of hypertension and acute coronary artery disease currently controlled with medications here complaining of pain and pruritus on the left lower abdomen and between her abdominal wall and inguinal fold. Patient is obese and has an infected rash in her inguinal fold. Her chills, pain radiation, rating the pain upon palpation and a 5 out of 10. Denies vaginal discharge, suprapubic pain pressure, nausea vomiting, S OB, palpitation, chest pain and all other associated symptoms. 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 Denies all other associated symptoms. ROS: denies: fatigue, low energy, confusion denies: nausea, vomiting, abdominal pain, urinary frequency, dysuria denies: sob, chest pain, dizziness, blurred vision, headache denies: muscle pain, tingling/numbness denies: sore throat, rhinorrea, fever, chills, ear pain denies: anxiety, depresion, SI, HI, drug use Ddx considered but are not limited to: cellulitis, intertrigo, abscess Vital signs: are WNL, pt. is afebrile H&PE are most consistent with: cellulitis left lower abdomen, intertrigo ORDERS: wound clean and dress, bacitricin, keflex, bactroban, lotrisione ED INTERVENTIONS: wound clean and dress DISCHARGE: At this time pt. is stable for d/c to home. Will provide printed patient care instructions, and any necessary prescriptions. Care plan and follow up instructions have been discussed with the patient prior to discharge. The with primary care provider in 2 days for wound care weight loss advised keep abdominal wall elevated to prevent further infection fever chills or any distress return to the emergency room Last Vital Signs Date Time Temp Pulse Resp B/P (MAP) Pulse Ox O2 Delivery O2 Flow Rate FiO2 08/16/18 12:42 98.4 95 16 145/88 94 Room Air Disposition: HOME, SELF-CARE Condition: Stable Scripts Clotrimazole/Betamethasone Dip* (LOTRISONE CREAM*) 15 Gm Cream..g. 2 GM TP TWICE A DAY, #15 GM 0 Refills Prov: Salvador French 08/16/18 Mupirocin (MUPIROCIN) 15 Gm Cream..g. 1 APPLIC TOPIC THREE TIMES A DAY, #15 GM Prov: Salvador French 08/16/18 Cephalexin* (KEFLEX*) 500 Mg Capsule 500 MG ORAL EVERY 6 HOURS for 7 Days, #28 CAP Prov: Salvador French 08/16/18 Patient Instructions: Cellulitis, [id number]-[id number], Wound Care Additional Instructions: Weight loss advised keep abdominal wall of 4 to prevent further infection use medication as directed follow-up with your primary care provider for wound check in 2 days if fever chills shortness of breath return to the emergency room Salvador French Aug 16, 2018 12:59
[2018-08-16] MEDS ORDERED: Bacitracin Oint UD TOPIC ONE (13:00)
[2018-08-16] MEDS ORDERED: LOTRISONE CREAM15 GM TP (13:01)
[2018-08-16] MEDS ORDERED: CEPHALEXIN500 MG ORAL (13:01)
[2018-08-16] MEDS ORDERED: MUPIROCIN15 GM TOPIC (13:01)
[2018-08-16 13:12] VITALS: BP 145/88
--- NOTE | 2018-08-16 13:15 | NUR ---
ER DISCHARGE NOTE:left abdominal fold/groin wound was cleaned and bacitricin with dry dressing applied Patient is cleared to be discharged per ERMD, pt is aox4, on room air, with stable vital signs. pt was given dc and prescription instructions, pt was able to verbalize understanding, pt is able to ambulate with steady gait. pt took all belongings.
[2018-08-16 13:17] VITALS: BP 145/88
== END 2018-08-16 13:20 | disposition home or self-care (01) ==
LOC: EMR 13:00
DX: L30.4 Erythema intertrigo (principal); L03.311 Cellulitis of abdominal wall; I11.9 Hypertensive heart disease without heart failure; I25.10 Atherosclerotic heart disease of native coronary artery without angina pectoris; J44.9 Chronic obstructive pulmonary disease, unspecified; Z86.73 Personal history of transient ischemic attack (TIA), and cerebral infarction without residual deficits; E66.9 Obesity, unspecified; Z68.37 Body mass index [BMI] 37.0-37.9, adult
CPT/HCPCS: 99282

== ENCOUNTER 2018-09-17 07:26 | Outpatient (CLI) | payer MEDICARE, MEDICAID ==
[~2018-09-17 07:26] MED LIST changes: +CEPHALEXIN500 MG ORAL; +LOTRISONE CREAM15 GM TP; +MUPIROCIN15 GM TOPIC
[2018-09-17 08:13] LABS: BASOPHILS % (AUTO) 0.7 % (0.0-2.0); EOSINOPHILS % (AUTO) 1.3 % (0.0-3.0); HEMATOCRIT 40.4 % (37.0-47.0); LYMPHOCYTES % (AUTO) 17.6 % (20.0-45.0); MEAN CORPUSCULAR VOLUME 93 FL (80-99); MONOCYTES % (AUTO) 5.9 % (1.0-10.0); NEUTROPHILS % (AUTO) 74.5 % (45.0-75.0); PLATELET COUNT 211 K/UL (150-450); RED BLOOD COUNT 4.35 M/UL (4.20-5.40); RED CELL DISTRIBUTION WIDTH 14.1 % (11.6-14.8); WHITE BLOOD COUNT 10.5 K/UL (4.8-10.8)
[2018-09-17 08:37] LABS: ANION GAP 9 mmol/L (5-15); BLOOD UREA NITROGEN 24 mg/dL (7-18); CALCIUM 9.7 MG/DL (8.5-10.1); CARBON DIOXIDE 29 MMOL/L (21-32); CHLORIDE 102 MMOL/L (98-107); CREATININE 1.4 MG/DL (0.55-1.30); POTASSIUM 4.4 MMOL/L (3.5-5.1); SODIUM 140 MMOL/L (136-145)
[2018-09-17 08:55] LABS: INR 0.9 (0.9-1.1)
== END 2018-09-17 09:26 | disposition home or self-care (01) ==
LOC: LAB 07:26
DX: Z01.818 Encounter for other preprocedural examination (principal); H26.9 Unspecified cataract
CPT/HCPCS: 36415; 80048; 85025; 85610; 85730

== ENCOUNTER 2018-10-28 08:32 | Inpatient (IN) | payer MEDICARE, MEDICAID ==
[~2018-10-28] VITALS: Ht 162.6 cm; Wt 98.0 kg
[2018-10-28] MEDS ORDERED: Nitroglycerin 2% oint pkt TOPIC ONE (08:45)
[2018-10-28 08:52] LABS: BASOPHILS % (AUTO) 0.7 % (0.0-2.0); EOSINOPHILS % (AUTO) 0.4 % (0.0-3.0); HEMATOCRIT 37.6 % (37.0-47.0); HEMOGLOBIN 12.2 G/DL (12.0-16.0); LYMPHOCYTES % (AUTO) 9.3 % (20.0-45.0); MEAN CORPUSCULAR VOLUME 95 FL (80-99); MONOCYTES % (AUTO) 4.9 % (1.0-10.0); NEUTROPHILS % (AUTO) 84.7 % (45.0-75.0); PLATELET COUNT 223 K/UL (150-450); RED BLOOD COUNT 3.97 M/UL (4.20-5.40); RED CELL DISTRIBUTION WIDTH 12.4 % (11.6-14.8)
--- NOTE | 2018-10-28 08:53 | Emergency Room Report ---
History of Present Illness General Chief Complaint: Dyspnea/Respdistress Source: Patient, EMS Present Illness HPI 68-year-old female possible history of CHF, hypertension, hyperlipidemia, COPD presents with shortness of breath that started 2 days prior to arrival, patient endorses that lying flat makes it worse, she has some dyspnea on exertion, and some chest tightness that comes and goes, she denies any aggravating alleviating factors for the chest pain, she does endorse worsening shortness of breath with activity, alleviated with rest States this feels exactly like when she had a CHF exacerbation in the past Allergies: Coded Allergies: No Known Allergies (Verified , 06/22/18) Patient History Past Medical History: see triage record PMH Narrative Hyperlipidemia, CHF, COPD Past Surgical History: other PSxH Narrative Reviewed in chart Pertinent Family History: other - Not applicable to presenting complaint Last Menstrual Period: na Reviewed Nursing Documentation: PMH: Agreed; PSxH: Agreed Nursing Documentation-PMH Past Medical History: No History, Except For Hx Cardiac Problems: Yes - CHF Hx Hypertension: Yes Hx Pacemaker: No Hx COPD: Yes Hx Diabetes: No Hx Cancer: No Hx Gastrointestinal Problems: No Hx Neurological Problems: No Hx Cerebrovascular Accident: Yes Hx Neurologic Surgery: No Review of Systems Respiratory: Reports: cough, orthopnea, shortness of breath, MARSH Cardiovascular: Reports: chest pain All Other Systems: negative except mentioned in HPI Physical Exam Vital Signs Date Time Temp Pulse Resp B/P (MAP) Pulse Ox O2 Delivery O2 Flow Rate FiO2 10/28/18 08:27 98.8 105 22 141/75 (97) 94 Room Air Sp02 EP Interpretation: reviewed, abnormal General Appearance: no apparent distress, alert, GCS 15, non-toxic Head: normocephalic, atraumatic Eyes: bilateral eye normal inspection, bilateral eye PERRL ENT: hearing grossly normal, normal pharynx, no angioedema, normal voice Neck: full range of motion, supple/symm/no masses Respiratory: crackles, other - reduced breath sounds bilaterally, she noted to be mildly short of breath while speaking Cardiovascular #1: no edema, tachycardia Cardiovascular #2: 2+ carotid (R), 2+ carotid (L), 2+ radial (R), 2+ radial (L) , 2+ dorsalis pedis (R), 2+ dorsalis pedis (L) Gastrointestinal: non tender, soft, non-distended, no guarding, no rebound Rectal: deferred Genitourinary: normal inspection, no CVA tenderness Musculoskeletal: back normal, gait/station normal, normal range of motion, non- tender, calf tenderness Neurologic: alert, oriented x3, responsive, motor strength/tone normal, speech normal Psychiatric: judgement/insight normal, memory normal, mood/affect normal, no suicidal/homicidal ideation Skin: warm/dry Lymphatic: no adenopathy Medical Decision Making Diagnostic Impression: Primary Impression: CHF exacerbation Additional Impression: COPD exacerbation ER Course 68-year-old female multiple comorbidities presents with shortness of breath consistent with most likely a CHF exacerbation, will obtain labs, EKG, chest x- ray, will provide Lasix, and reevaluate patient Reevaluation 9:52 AM, patient breathing improved, patient with some mild blunting of the left costophrenic angle, some crackles on exam, possible mixed picture of COPD exacerbation as well as CHF exacerbation, will admit patient for observation Laboratory Tests Test 10/28/18 08:40 White Blood Count 13.0 K/UL (4.8-10.8) H Red Blood Count 3.97 M/UL (4.20-5.40) L Hemoglobin 12.2 G/DL (12.0-16.0) Hematocrit 37.6 % (37.0-47.0) Mean Corpuscular Volume 95 FL (80-99) Mean Corpuscular Hemoglobin 30.8 PG (27.0-31.0) Mean Corpuscular Hemoglobin Concent 32.6 G/DL (32.0-36.0) Red Cell Distribution Width 12.4 % (11.6-14.8) Platelet Count 223 K/UL (150-450) Mean Platelet Volume 6.5 FL (6.5-10.1) Neutrophils (%) (Auto) 84.7 % (45.0-75.0) H Lymphocytes (%) (Auto) 9.3 % (20.0-45.0) L Monocytes (%) (Auto) 4.9 % (1.0-10.0) Eosinophils (%) (Auto) 0.4 % (0.0-3.0) Basophils (%) (Auto) 0.7 % (0.0-2.0) Sodium Level 136 MMOL/L (136-145) Potassium Level 3.7 MMOL/L (3.5-5.1) Chloride Level 101 MMOL/L (98-107) Carbon Dioxide Level 23 MMOL/L (21-32) Anion Gap 12 mmol/L (5-15) Blood Urea Nitrogen 15 mg/dL (7-18) Creatinine 1.4 MG/DL (0.55-1.30) H Estimate Glomerular Filtration Rate 45.6 mL/min (>60) Glucose Level 168 MG/DL (74-106) H Calcium Level 9.1 MG/DL (8.5-10.1) Magnesium Level 1.6 MG/DL (1.8-2.4) L Total Bilirubin 1.2 MG/DL (0.2-1.0) H Direct Bilirubin 0.3 MG/DL (0.0-0.3) Aspartate Amino Transferase (AST) 25 U/L (15-37) Alanine Aminotransferase (ALT) 20 U/L (12-78) Alkaline Phosphatase 93 U/L (46-116) Total Creatine Kinase 64 U/L (26-308) Creatine Kinase MB < 0.5 NG/ML (0.0-3.6) Creatine Kinase MB Relative Index 0.7 Troponin I 0.026 ng/mL (0.000-0.056) Pro-B-Type Natriuretic Peptide 6592 pg/mL (0-125) H Total Protein 7.9 G/DL (6.4-8.2) Albumin 3.2 G/DL (3.4-5.0) L Globulin 4.7 g/dL Albumin/Globulin Ratio 0.7 (1.0-2.7) L EKG Diagnostic Results EKG Time: 08:37 Rate: tachycardiac Rhythm: other - Tachycardia ST Segments: no acute changes Other Impression No acute ST elevations ASA given to the pt in ED: Yes Rhythm Strip Diag. Results Rhythm Strip Time: 08:50 EP Interpretation: yes Rate: 107 Rhythm: other - Sinus tachycardia Other Impression PVC present, no acute ST elevations, Chest X-Ray Diagnostic Results Chest X-Ray Diagnostic Results : Chest X-Ray Ordered: Yes # of Views/Limited/Complete: 1 View Indication: Other - cough EP Interpretation: Yes Interpretation: no consolidation, no effusion, no pneumothorax, no acute cardiopulmonary disease Impression: No acute disease Electronically Signed by: Casey Saucedo MD Last Vital Signs Date Time Temp Pulse Resp B/P (MAP) Pulse Ox O2 Delivery O2 Flow Rate FiO2 10/28/18 08:27 98.8 105 22 141/75 (97) 94 Room Air Disposition: PLACE IN OBSERVATION Condition: Improved Casey Saucedo M.D. Oct 28, 2018 08:53
--- NOTE | 2018-10-28 08:54 | NUR ---
ED Nurse Note: X-ray at bedside for imaging.
[2018-10-28 08:55] VITALS: BP 139/94
--- NOTE | 2018-10-28 08:57 | NUR ---
ED Nurse Note: Pt BIBA from home due to SOB x 2 days, SAT was 94% RA upon arrival. Pt has hx of CHF and COPD. Pt reported she felt uncomfortable on R chest yesterday but no pain at this moment. Vial signs stable, HR >100, ERMD aware. Will cont to monitor.
[2018-10-28 09:14] LABS: ANION GAP 12 mmol/L (5-15); BLOOD UREA NITROGEN 15 mg/dL (7-18); CALCIUM 9.1 MG/DL (8.5-10.1); CARBON DIOXIDE 23 MMOL/L (21-32); CHLORIDE 101 MMOL/L (98-107); CREATININE 1.4 MG/DL (0.55-1.30); POTASSIUM 3.7 MMOL/L (3.5-5.1); SODIUM 136 MMOL/L (136-145)
[2018-10-28] MEDS ORDERED: Solu-MEDROL 125mg Inj IVP ONE (09:15)
--- NOTE | 2018-10-28 09:15 | NUR ---
ED Nurse Note: Pt ambulated to the restroom with steady gait. No sign of acute distress.
[2018-10-28 09:28] LABS: ALANINE AMINOTRANSFERASE 20 U/L (12-78); ALBUMIN 3.2 G/DL (3.4-5.0); ALBUMIN/GLOBULIN RATIO 0.7 (1.0-2.7); ALKALINE PHOSPHATASE 93 U/L (46-116); ASPARTATE AMINO TRANSFERASE 25 U/L (15-37); BILIRUBIN,TOTAL 1.2 MG/DL (0.2-1.0); CKMB < 0.5 NG/ML (0.0-3.6); CREATINE KINASE 64 U/L (26-308)
[2018-10-28 09:29] LABS: BILIRUBIN,DIRECT 0.3 MG/DL (0.0-0.3)
[2018-10-28] MEDS: Albuterol ud Inhalation HHN SCH ×3 (09:29→09:53)
[2018-10-28] MEDS: Ipratropium 0.02% Inh Soln 2.5ml UD HHN SCH ×3 (09:29→09:53)
[2018-10-28 10:50] VITALS: BP 137/89
[2018-10-28] MEDS ORDERED: Albuterol/Ipratropium 3ml neb HHN PRN (11:15)
[2018-10-28] MEDS ORDERED: Miralax 17gm pkt ORAL PRN (11:15)
--- NOTE | 2018-10-28 11:28 | NUR ---
ED Nurse Note: Report given to JERZY Zavaleta ext [phone]. Pt to be transfered to room 205-2 on [facility] per protocol.
--- NOTE | 2018-10-28 11:31 | NUR ---
ED Nurse Note: 2DEcho at bedside for imaging.
--- NOTE | 2018-10-28 11:55 | NUR ---
NURSE NOTES received patient from ER nurse Sherlyn. Patient is awake and alert x4. able to make needs known. Initial assessment completed. VS WNL. Patient oriented to room. BEd locked to lowest position, side rails X2 up. Call light within patients reach. will monitor.
[2018-10-28 12:00] VITALS: BP 131/80
--- NOTE | 2018-10-28 12:44 | Diagnostic Imaging Report ---
Indication: Chest pain, dyspnea Technique: One view of the chest Comparison: 06/23/2018 Findings: Stable cardiomegaly. Lungs and pleural spaces are clear. No significant interim change. Impression: Cardiomegaly. No definite acute process
--- NOTE | 2018-10-28 14:02 | Diagnostic Imaging Report ---
APPROVED REPORT CPT Code: 97934 Present Symptoms Lower Extremity Pain: BILATERAL: Imaging reveals a patent deep venous system bilaterally. There is no evidence of thrombus within the femoral, popliteal or tibial segments. The greater saphenous veins are also within normal limits. Doppler indicates normal spontaneous flow within these segments.
[2018-10-28] MEDS: Carvedilol 6.25mg Tab ORAL SCH ×2 (14:04→20:33)
--- NOTE | 2018-10-28 14:07 | Consultation ---
History of Present Illness General Chief Complaint: Dyspnea/Respdistress Present Illness HPI 68-year-old female with history of CHF, EF 30%, hypertension, COPD presented to ER with shortness of breath for 2 days prior to arrival, patient endorses that lying flat makes it worse, she has some dyspnea on exertion, and some chest tightness as well. She had productive cough. Her CXR was negative for any acute infiltrate or edema. She is admitted for acute exacerbation of COPD vs CHF. Allergies: Coded Allergies: No Known Allergies (Verified , 06/22/18) Medication History Scheduled Aspirin* (Aspir 81*), 81 MG ORAL DAILY, (Reported) Carvedilol* (Carvedilol*), 6.25 MG ORAL EVERY 12 HOURS, (Reported) Cetirizine Hcl* (Zyrtec*), 10 MG ORAL DAILY, (Reported) Clopidogrel* (Clopidogrel*), 75 MG ORAL DAILY, (Reported) Furosemide* (Lasix*), 40 MG ORAL DAILY, (Reported) Levothyroxine Sodium* (Synthroid*), 25 MCG ORAL DAILY, (Reported) Mupirocin (Mupirocin), 1 APPLIC TOPIC THREE TIMES A DAY Tizanidine Hcl (Tizanidine Hcl), 2 MG PO EVERY 12 HOURS, (Reported) Tobramycin/Dexamethasone (Tobradex Eye Drops), 5 ML OP TWICE A DAY Vitamin D (Vitamin D3), 400 UNITS ORAL DAILY, (Reported) Miscellaneous Medications Brimonidine Tartrate (Alphagan P), 5 ML OP, (Reported) Budesonide/Formoterol Fumarate (Symbicort 160-4.5 Mcg Inhaler), 1 PUFF IH, ( Reported) Clobetasol Propionate (Clobetasol Propionate), 0.5 GM MC, (Reported) Netarsudil Mesylate (Rhopressa), 2.5 ML OP, (Reported) Discontinued Medications Acetaminophen (Tylenol), 650 MG ORAL Q6H PRN for Prn Pain/Headache/Temp > 101 Discontinued Reason: Pt stopped taking med Amoxicillin/Potassium Clav 875-125* (Augmentin 875-125 Tablet*), 1 TAB ORAL TWICE A DAY Discontinued Reason: Pt stopped taking med Aspirin Ec* (Aspirin Ec*), 81 MG ORAL DAILY Discontinued Reason: Pt stopped taking med Atorvastatin (Lipitor), 10 MG ORAL BEDTIME, (Reported) Discontinued Reason: Pt stopped taking med Atorvastatin Calcium* (Lipitor*), 20 MG ORAL BEDTIME Discontinued Reason: Pt stopped taking med Cephalexin* (Keflex*), 500 MG ORAL EVERY 6 HOURS Discontinued Reason: Pt stopped taking med Clopidogrel* (Clopidogrel*), 75 MG ORAL DAILY, (Reported) Discontinued Reason: Pt stopped taking med Clotrimazole/Betamethasone Dip* (Lotrisone Cream*), 2 GM TP TWICE A DAY Discontinued Reason: Pt stopped taking med Furosemide (Furosemide), 40 MG ORAL DAILY, (Reported) Discontinued Reason: Pt stopped taking med Furosemide* (Lasix*), 20 MG ORAL DAILY, (Reported) Discontinued Reason: Pt stopped taking med Hydrocodone Bit/Acetaminophen 5-325* ([place] 5-325*), 1 TAB ORAL BID PRN for For Pain, (Reported) Discontinued Reason: Pt stopped taking med Levothyroxine Sodium* (Synthroid*), 25 MCG ORAL DAILY Discontinued Reason: Pt stopped taking med Levothyroxine Sodium* (Levothyroxine Sodium), 25 MCG IV DAILY, (Reported) Discontinued Reason: Pt stopped taking med Lisinopril* (Lisinopril*), 10 MG ORAL DAILY Discontinued Reason: Pt stopped taking med Lisinopril* (Lisinopril*), 10 MG ORAL DAILY Discontinued Reason: Pt stopped taking med Spironolactone (Aldactone), 25 MG ORAL DAILY Discontinued Reason: Pt stopped taking med Theophylline (Theodur*), 100 MG ORAL EVERY 12 HOURS Discontinued Reason: Pt stopped taking med Valsartan (Diovan), 80 MG ORAL DAILY, (Reported) Discontinued Reason: Pt stopped taking med Vitamin D (Vitamin D3), 1,000 UNITS ORAL DAILY, (Reported) Discontinued Reason: Medication dose changed Patient History Healthcare decision maker Resuscitation status Advanced Directive on File Past Medical/Surgical History Past Medical/Surgical History: (1) Anxiety disorder (2) Hemiparesis affecting right side as late effect of cerebrovascular accident (CVA) (3) HTN (hypertension) (4) Hypothyroidism (5) COPD (chronic obstructive pulmonary disease) (6) EF 35% (7) Goiter (8) Subclinical hypothyroidism Review of Systems All Other Systems: negative except mentioned in HPI Physical Exam General Appearance: WD/WN, no apparent distress Lines, tubes and drains: peripheral HEENT: normocephalic, atraumatic Neck: non-tender, normal alignment Respiratory/Chest: chest wall non-tender, lungs clear Cardiovascular/Chest: normal peripheral pulses, normal rate Abdomen: normal bowel sounds, non tender Genitourinary/Rectal: normal genital exam Extremities: normal range of motion Skin Exam: normal pigmentation 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 normal Last 24 Hour Vital Signs Date Time Temp Pulse Resp B/P (MAP) Pulse Ox O2 Delivery O2 Flow Rate FiO2 10/28/18 11:28 98.8 111 22 137/89 95 Nasal Cannula 2.0 10/28/18 11:04 95 Nasal Cannula 2.0 10/28/18 10:50 98.8 111 22 137/89 100 Room Air 10/28/18 10:24 100 22 100 Room Air 10/28/18 09:57 105 25 98 Room Air 10/28/18 09:55 110 25 98 Room Air 10/28/18 09:45 103 25 Room Air 10/28/18 09:45 105 23 100 Room Air 10/28/18 09:43 105 23 100 Room Air 10/28/18 09:26 103 25 95 Room Air 10/28/18 09:24 103 25 95 Room Air 10/28/18 08:55 98.8 101 22 139/94 95 Room Air 10/28/18 08:50 139/94 10/28/18 08:27 98.8 105 22 141/75 (97) 94 Room Air Laboratory Tests Test 10/28/18 08:40 White Blood Count 13.0 K/UL (4.8-10.8) H Red Blood Count 3.97 M/UL (4.20-5.40) L Hemoglobin 12.2 G/DL (12.0-16.0) Hematocrit 37.6 % (37.0-47.0) Mean Corpuscular Volume 95 FL (80-99) Mean Corpuscular Hemoglobin 30.8 PG (27.0-31.0) Mean Corpuscular Hemoglobin Concent 32.6 G/DL (32.0-36.0) Red Cell Distribution Width 12.4 % (11.6-14.8) Platelet Count 223 K/UL (150-450) Mean Platelet Volume 6.5 FL (6.5-10.1) Neutrophils (%) (Auto) 84.7 % (45.0-75.0) H Lymphocytes (%) (Auto) 9.3 % (20.0-45.0) L Monocytes (%) (Auto) 4.9 % (1.0-10.0) Eosinophils (%) (Auto) 0.4 % (0.0-3.0) Basophils (%) (Auto) 0.7 % (0.0-2.0) Sodium Level 136 MMOL/L (136-145) Potassium Level 3.7 MMOL/L (3.5-5.1) Chloride Level 101 MMOL/L (98-107) Carbon Dioxide Level 23 MMOL/L (21-32) Anion Gap 12 mmol/L (5-15) Blood Urea Nitrogen 15 mg/dL (7-18) Creatinine 1.4 MG/DL (0.55-1.30) H Estimat Glomerular Filtration Rate 45.6 mL/min (>60) Glucose Level 168 MG/DL (74-106) H Calcium Level 9.1 MG/DL (8.5-10.1) Magnesium Level 1.6 MG/DL (1.8-2.4) L Total Bilirubin 1.2 MG/DL (0.2-1.0) H Direct Bilirubin 0.3 MG/DL (0.0-0.3) Aspartate Amino Transf (AST/SGOT) 25 U/L (15-37) Alanine Aminotransferase (ALT/SGPT) 20 U/L (12-78) Alkaline Phosphatase 93 U/L (46-116) Total Creatine Kinase 64 U/L (26-308) Creatine Kinase MB < 0.5 NG/ML (0.0-3.6) Creatine Kinase MB Relative Index 0.7 Troponin I 0.026 ng/mL (0.000-0.056) Pro-B-Type Natriuretic Peptide 6592 pg/mL (0-125) H Total Protein 7.9 G/DL (6.4-8.2) Albumin 3.2 G/DL (3.4-5.0) L Globulin 4.7 g/dL Albumin/Globulin Ratio 0.7 (1.0-2.7) L Height (Feet): 5 Height (Inches): 4.00 Weight (Pounds): 216 Medications Current Medications Medications (Trade) Dose Ordered Sig/Marline Route PRN Reason Start Time Stop Time Status Last Admin Dose Admin Acetaminophen (Tylenol) 650 mg Q4H PRN ORAL T>100.5 10/28/18 11:15 11/27/18 11:14 Albuterol/ Ipratropium (Albuterol/ Ipratropium) 3 ml Q4H PRN HHN Shortness of Breath 10/28/18 11:15 11/02/18 11:14 Carvedilol (Coreg) 6.25 mg EVERY 12 HOURS ORAL 10/28/18 13:00 11/27/18 12:59 Clopidogrel Bisulfate (Plavix) 75 mg DAILY ORAL 10/29/18 09:00 11/28/18 08:59 Dextrose (Dextrose 50%) 25 ml Q30M PRN IV Hypoglycemia 10/28/18 11:15 11/27/18 11:14 Dextrose (Dextrose 50%) 50 ml Q30MIN PRN IV Hypoglycemia 10/28/18 11:15 11/27/18 11:14 Furosemide (Lasix) 40 mg EVERY 8 HOURS IV 10/28/18 14:00 11/27/18 13:59 Heparin Sodium (Porcine) (Heparin 5000 units/ml) 5,000 units EVERY 12 HOURS SUBQ 10/28/18 21:00 11/27/18 20:59 Levothyroxine Sodium (Synthroid) 25 mcg DAILY@0630 ORAL 10/29/18 06:30 11/28/18 06:29 Ondansetron HCl (Zofran) 4 mg Q6H PRN IVP Nausea & Vomiting 10/28/18 11:15 11/27/18 11:14 Polyethylene Glycol (Miralax) 17 gm DAILYPRN PRN ORAL Constipation 10/28/18 11:15 11/27/18 11:14 Temazepam (Restoril) 15 mg HSPRN PRN ORAL Insomnia 10/28/18 21:00 11/04/18 20:59 Assessment/Plan Problem List: (1) COPD exacerbation ICD Codes: J44.1 - Chronic obstructive pulmonary disease with (acute) exacerbation SNOMED: 371082883 (2) HTN (hypertension) ICD Codes: I10 - Essential (primary) hypertension SNOMED: 92759423 (3) Hypothyroidism ICD Codes: E03.9 - Hypothyroidism, unspecified SNOMED: 85085237 (4) EF 35% (5) Anxiety disorder ICD Codes: F41.9 - Anxiety disorder, unspecified SNOMED: 566308919 (6) Hemiparesis affecting right side as late effect of cerebrovascular accident (CVA) ICD Codes: I69.351 - Hemiplegia and hemiparesis following cerebral infarction affecting right dominant side SNOMED: 911549468 Assessment/Plan: respiratory treatment titrate fio2 to sat of 92% sputum c/s short course of steroids symptomatic treatment all home meds reviewed. Halina Hameed MD Oct 28, 2018 14:07
[2018-10-28] MEDS ORDERED: Promethazine/Codeine 5ml UD ORAL PRN (14:15)
--- NOTE | 2018-10-28 15:35 | Cardiology Report ---
APPROVED REPORT EXAM: Two-dimensional and M-mode echocardiogram with Doppler and color Doppler. INDICATION Left ventricular function M-Mode DIMENSIONS IVSd1.6 (0.7-1.1cm)Left Atrium (MM)4.0 (1.6-4.0cm) LVDd4.8 (3.5-5.6cm)Aortic Root2.8 (2.0-3.7cm) PWd1.3 (0.7-1.1cm)Aortic Cusp Exc.1.7 (1.5-2.0cm) LVDs3.9 (2.5-4.0cm) PWs1.5 cm Technically difficult study due to poor acoustic windows. Study quality precludes accurate assessment of regional wall motion. Normal left ventricular chamber size. Global left ventricular hypokinesis. Severe anteroseptal hypokinesis. Left ventricular ejection fraction estimated to be 30-35%. Mild left ventricular hypertrophy. Small circumferential pericardial effusion. All other cardiac chamber sizes are within normal limits. Focal aortic valve sclerosis with adequate cusp excursion. Mildly thickened mitral valve leaflets with normal excursion. Mild mitral annulus and aortic root calcification. Pulmonic valve not well visualized. Normal tricuspid valve structure. IVC is normal in size with physiological collapse. A color flow and spectral Doppler study was performed and revealed: No aortic regurgitation. Mild mitral regurgitation. Mitral diastolic velocities suggest mild left ventricular diastolic dysfunction (Grade I). Trace tricuspid regurgitation. Tricuspid systolic velocities suggests peak right ventricular systolic pressure of 13 mmHg. Trace pulmonic regurgitation present.
[2018-10-28] MEDS: cefTRIAXone 1 GM in D5W 55 ML IVPB SCH (16:42)
[2018-10-28] MEDS: Solu-MEDROL 125mg Inj IV SCH ×2 (17:21→23:12)
--- NOTE | 2018-10-28 17:25 | History & Physical ---
History and Physical History & Physicial Patient: MARILYN JETER [facility] Rec #: [id number] DATE OF ADMISSION: 10/28/2018 CHIEF COMPLAINT: shortness of breath for 2 days. HISTORY OF PRESENT ILLNESS: The patient is a 68-year-old, female, who presents with a chief complaint of shortness of breath for 2 days and progressively worsening over past 24 hours. she denies any aggravating alleviating factors for the chest pain, she does endorse worsening shortness of breath with activity, alleviated with rest States this feels exactly like when she had a CHF exacerbation in the past. REVIEW OF SYSTEMS: CONSTITUTIONAL: The patient denies weight loss or weight gain. The patient denies fevers or chills. HEENT: The patient denies ear or throat pain. The patient denies headache. CARDIOVASCULAR: The patient denies palpitations or chest pain. CHEST: The patient complains of shortness of breath as above. The patient complains of cough as above. The patient denies wheezes. ABDOMEN: The patient denies nausea, vomiting, diarrhea, or constipation. GENITOURINARY: The patient denies dysuria or increased frequency of urination. NEUROMUSCULAR: The patient has a right hemiparesis secondary to stroke previously. The patient denies seizures or generalized weakness. PAST MEDICAL HISTORY: Significant for, 1. Congestive heart failure as above. 2. History of cerebrovascular accident in 2008. 3. Hypertension. 4. Right hemiparesis. 5. Coronary artery disease. PAST SURGICAL HISTORY: The patient denies. CURRENT MEDICATIONS: 1. Aspirin 81 mg one tablet p.o. daily. 2. Atorvastatin 20 mg p.o. at bedtime. 3. Carvedilol 6.25 mg p.o. twice daily. 4. Clopidogrel 75 mg p.o. daily. 5. Lasix 40 mg p.o. daily. 6. [place] 5/325 mg one tablet p.o. q.6 hours p.r.n. 7. Levoxyl 0.025 mg p.o. daily. 8. Spironolactone 25 mg p.o. daily. 9. Valsartan 80 mg p.o. daily. ALLERGIES: No known drug allergies. SOCIAL HISTORY: The patient is single and lives with her adult daughter. The patient denies tobacco use having quit in April of 2017. The patient admits to alcohol use occasionally. PHYSICAL EXAMINATION: Last 24 Hour Vital Signs Date Time Temp Pulse Resp B/P (MAP) Pulse Ox O2 Delivery O2 Flow Rate FiO2 10/28/18 16:34 Nasal Cannula 2.0 10/28/18 14:04 99 131/80 10/28/18 11:28 98.8 111 22 137/89 95 Nasal Cannula 2.0 10/28/18 11:04 95 Nasal Cannula 2.0 10/28/18 10:50 98.8 111 22 137/89 100 Room Air 10/28/18 10:24 100 22 100 Room Air 10/28/18 09:57 105 25 98 Room Air 10/28/18 09:55 110 25 98 Room Air 10/28/18 09:45 103 25 Room Air 10/28/18 09:45 105 23 100 Room Air 10/28/18 09:43 105 23 100 Room Air 10/28/18 09:26 103 25 95 Room Air 10/28/18 09:24 103 25 95 Room Air 10/28/18 08:55 98.8 101 22 139/94 95 Room Air 10/28/18 08:50 139/94 10/28/18 08:27 98.8 105 22 141/75 (97) 94 Room Air GENERAL: The patient is a well-developed and well-nourished female, in no apparent distress. HEENT: Eyes, pupils equal responsive to light and accommodation. Extraocular movements are intact. NECK: Supple without lymphadenopathy. CHEST: decrease air at bases bilaterally without wheezes or rales. CARDIOVASCULAR: Regular rhythm and rate. S1 and S2 are normal without murmurs, rubs, or gallops. ABDOMEN: Soft, nontender, and nondistended. Positive bowel sounds. no rebound or guarding, Obesity. EXTREMITIES: Negative for clubbing, cyanosis, or edema. RECTAL/GENITAL: Refused. NEUROLOGIC: Cranial nerves II through XII are grossly intact without focal deficits. Motor strength is 5/5 bilaterally. Deep tendon reflexes are 2+ plantar. LABORATORY STUDIES: Test 10/28/18 08:40 10/28/18 14:10 White Blood Count 13.0 K/UL (4.8-10.8) Red Blood Count 3.97 M/UL (4.20-5.40) Hemoglobin 12.2 G/DL (12.0-16.0) Hematocrit 37.6 % (37.0-47.0) Mean Corpuscular Volume 95 FL (80-99) Mean Corpuscular Hemoglobin 30.8 PG (27.0-31.0) Mean Corpuscular Hemoglobin Concent 32.6 G/DL (32.0-36.0) Red Cell Distribution Width 12.4 % (11.6-14.8) Platelet Count 223 K/UL (150-450) Mean Platelet Volume 6.5 FL (6.5-10.1) Neutrophils (%) (Auto) 84.7 % (45.0-75.0) Lymphocytes (%) (Auto) 9.3 % (20.0-45.0) Monocytes (%) (Auto) 4.9 % (1.0-10.0) Eosinophils (%) (Auto) 0.4 % (0.0-3.0) Basophils (%) (Auto) 0.7 % (0.0-2.0) Sodium Level 136 MMOL/L (136-145) Potassium Level 3.7 MMOL/L (3.5-5.1) Chloride Level 101 MMOL/L (98-107) Carbon Dioxide Level 23 MMOL/L (21-32) Anion Gap 12 mmol/L (5-15) Blood Urea Nitrogen 15 mg/dL (7-18) Creatinine 1.4 MG/DL (0.55-1.30) Estimat Glomerular Filtration Rate 45.6 mL/min (>60) Glucose Level 168 MG/DL (74-106) Calcium Level 9.1 MG/DL (8.5-10.1) Magnesium Level 1.6 MG/DL (1.8-2.4) Total Bilirubin 1.2 MG/DL (0.2-1.0) Direct Bilirubin 0.3 MG/DL (0.0-0.3) Aspartate Amino Transf (AST/SGOT) 25 U/L (15-37) Alanine Aminotransferase (ALT/SGPT) 20 U/L (12-78) Alkaline Phosphatase 93 U/L (46-116) Total Creatine Kinase 64 U/L (26-308) Creatine Kinase MB < 0.5 NG/ML (0.0-3.6) Creatine Kinase MB Relative Index 0.7 Troponin I 0.026 ng/mL (0.000-0.056) 0.004 ng/mL (0.000-0.056) Pro-B-Type Natriuretic Peptide 6592 pg/mL (0-125) Total Protein 7.9 G/DL (6.4-8.2) Albumin 3.2 G/DL (3.4-5.0) Globulin 4.7 g/dL Albumin/Globulin Ratio 0.7 (1.0-2.7) CXR: Cardiomegaly. No definite acute process. 2D Echo: Technically difficult study due to poor acoustic windows. Study quality precludes accurate assessment of regional wall motion. Normal left ventricular chamber size. Global left ventricular hypokinesis. Severe anteroseptal hypokinesis. Left ventricular ejection fraction estimated to be 30-35%. Mild left ventricular hypertrophy. Small circumferential pericardial effusion. All other cardiac chamber sizes are within normal limits. Focal aortic valve sclerosis with adequate cusp excursion. Mildly thickened mitral valve leaflets with normal excursion. Mild mitral annulus and aortic root calcification. Pulmonic valve not well visualized. Normal tricuspid valve structure. IVC is normal in size with physiological collapse. A color flow and spectral Doppler study was performed and revealed: No aortic regurgitation. Mild mitral regurgitation. Mitral diastolic velocities suggest mild left ventricular diastolic dysfunction (Grade I). Trace tricuspid regurgitation. Tricuspid systolic velocities suggests peak right ventricular systolic pressure of 13 mmHg. Trace pulmonic regurgitation present. ASSESSMENT: This is a 68-year-old female. 1. Shortness of breath and cough most likely due to Acute COPD exacerbation. 2. Obesity 3. acute on Chronic congestive heart failure. 4. Cerebrovascular disease. 5. Hypertension. 6. Right hemiplegia. 7. Hypothyroidism. 8. Hypercholesterolemia. TREATMENT: admit to telemetry, Neb Tx, Solumedral IV, Heparin SQ, Full code F/U with Zari recommendation. Monitor labs and cultures. Charly Sandhu M.D. Charly Sandhu MD Oct 28, 2018 17:25
--- NOTE | 2018-10-28 18:00 | NUR ---
NURSE NOTES: Patients family brought eye drops that the patient puts on every night. Medication sent down to pharmacy. Receipt # [id number]
[2018-10-28 18:21] VITALS: BP 120/64
--- NOTE | 2018-10-28 19:10 | NUR ---
NURSE NOTES: Received report from JERZY Matute, patient in stable condition, lying in bed, AOx4, able to make needs known, denies pain at this time, IV site intact R wrist G20 saline lock, bed lowest position, brakes on, side rail upx2, call light within reach. Will continue to monitor and reassess.
--- NOTE | 2018-10-28 19:32 | NUR ---
HAND-OFF: Report given to Arleen Shankar. Plan of care endorsed.
[2018-10-28 20:00] VITALS: BP 142/81
[2018-10-28] MEDS: Theophylline ER 100mg ORAL SCH (20:33)
[2018-10-28] MEDS: Heparin 5000 units/ml inj SUBQ SCH (20:38)
--- NOTE | 2018-10-28 22:34 | NUR ---
NURSE NOTES: Notified Dr. Hameed regarding patient's Magnesium level of 1.6. Received new order. Noted and carried out.
[2018-10-29] VITALS: BP 136/80
[2018-10-29 04:00] VITALS: BP 141/83
[2018-10-29] MEDS: Solu-MEDROL 125mg Inj IV SCH ×3 (05:35→22:14)
[2018-10-29] MEDS: Levothyroxine 25mcg tab ORAL SCH (05:36)
[2018-10-29 06:51] LABS: HEMATOCRIT 34.5 % (37.0-47.0); HEMOGLOBIN 11.2 G/DL (12.0-16.0); MEAN CORPUSCULAR VOLUME 94 FL (80-99); PLATELET COUNT 239 K/UL (150-450); RED BLOOD COUNT 3.66 M/UL (4.20-5.40); WHITE BLOOD COUNT 9.5 K/UL (4.8-10.8)
--- NOTE | 2018-10-29 07:15 | NUR ---
HAND-OFF: Report given to JERZY Matute, patient in stable condition.
[2018-10-29 07:45] LABS: ALBUMIN 3.1 G/DL (3.4-5.0); ANION GAP 9 mmol/L (5-15); BLOOD UREA NITROGEN 18 mg/dL (7-18); CARBON DIOXIDE 26 MMOL/L (21-32); CHLORIDE 101 MMOL/L (98-107); CREATININE 1.2 MG/DL (0.55-1.30); PHOSPHORUS 3.6 MG/DL (2.5-4.9); POTASSIUM 4.4 MMOL/L (3.5-5.1); SODIUM 136 MMOL/L (136-145)
--- NOTE | 2018-10-29 07:59 | NUR ---
NURSE NOTES: received report from JOHNATHON Negro RN. Addendum: 10/29/18 at 0802 by Oksana Rainey RN continuation of above.. Patient awake and alert. denies no c/o pain or discomfort. safety precautions in place. Call loving within patients reach. will monitor.
[2018-10-29 08:00] VITALS: BP 133/78
--- NOTE | 2018-10-29 08:42 | NUR ---
RADIOLOGY DEPT., CHEST X-RAY DONE.-P.DYE
[2018-10-29] MEDS: Theophylline ER 100mg ORAL SCH ×2 (08:44→20:29)
[2018-10-29] MEDS: Carvedilol 6.25mg Tab ORAL SCH ×2 (08:45→20:30)
[2018-10-29] MEDS: DUREZOL 0.05% OPHTHALM SCH ×2 (08:45→17:26)
[2018-10-29] MEDS: PROLENSA 0.07% OPHTHALM SCH (08:45)
[2018-10-29] MEDS: Heparin 5000 units/ml inj SUBQ SCH ×2 (08:48→20:37)
[2018-10-29] MEDS ORDERED: BESIVANCE 0.6% OPHTHALM SCH (09:00)
--- NOTE | 2018-10-29 10:40 | Pulmonology Progress Note ---
Assessment/Plan Problems: (1) COPD exacerbation (2) HTN (hypertension) (3) Hypothyroidism (4) EF 35% (5) Anxiety disorder (6) Hemiparesis affecting right side as late effect of cerebrovascular accident (CVA) Assessment/Plan respiratory treatment titrate fio2 to sat of 92% sputum c/s short course of steroids taper to q 8 today symptomatic treatment CXR and BNP in am f/u sputum results. Subjective ROS Limited/Unobtainable: No Interval Events: feeling better Allergies: Coded Allergies: No Known Allergies (Verified , 06/22/18) Objective Last 24 Hour Vital Signs Date Time Temp Pulse Resp B/P (MAP) Pulse Ox O2 Delivery O2 Flow Rate FiO2 10/29/18 09:00 Nasal Cannula 2.0 10/29/18 08:45 68 133/78 10/29/18 08:00 97.7 68 21 133/78 (96) 97 10/29/18 08:00 79 10/29/18 07:30 96 Nasal Cannula 2.0 28 10/29/18 04:00 97.5 69 18 141/83 (102) 95 10/29/18 04:00 95 10/29/18 00:00 97.5 77 18 136/80 (98) 95 10/29/18 00:00 78 10/28/18 22:00 Nasal Cannula 2.0 10/28/18 20:33 82 142/81 10/28/18 20:00 96 10/28/18 20:00 97.6 82 18 142/81 (101) 95 10/28/18 19:50 95 Nasal Cannula 2.0 28 10/28/18 18:21 97.5 90 18 120/64 (82) 100 10/28/18 16:34 Nasal Cannula 2.0 10/28/18 16:00 95 10/28/18 14:04 99 131/80 10/28/18 12:00 98 10/28/18 12:00 98.1 99 131/80 (97) 98 10/28/18 11:28 98.8 111 22 137/89 95 Nasal Cannula 2.0 28 10/28/18 11:04 95 Nasal Cannula 2.0 28 10/28/18 10:50 98.8 111 22 137/89 100 Room Air 21 Intake and Output 10/28/18 10/29/18 19:00 07:00 Intake Total 240 ml 200 ml Balance 240 ml 200 ml Intake Oral 240 ml IV Total 200 ml # Voids 3 3 General Appearance: WD/WN HEENT: normocephalic, atraumatic Respiratory/Chest: chest wall non-tender, crackles/rales Breasts: no masses Cardiovascular: normal peripheral pulses, normal rate Abdomen: normal bowel sounds Genitourinary: normal external genitalia Extremities: no cyanosis Neurologic/Psychiatric: earth observations chief scientist II-XII grossly normal, abnormal gait Lymphatic: no neck adenopathy Laboratory Tests 10/28/18 14:10: Troponin I 0.004 10/29/18 05:36: Troponin I 0.006, White Blood Count 9.5, Red Blood Count 3.66L, Hemoglobin 11.2L , Hematocrit 34.5L, Mean Corpuscular Volume 94, Mean Corpuscular Hemoglobin 30.7 , Mean Corpuscular Hemoglobin Concent 32.6, Red Cell Distribution Width 12.0, Platelet Count 239, Mean Platelet Volume 7.0, Neutrophils (%) (Auto) , Lymphocytes (%) (Auto) , Monocytes (%) (Auto) , Eosinophils (%) (Auto) , Basophils (%) (Auto) , Differential Total Cells Counted 100, Neutrophils % ( Manual) 87H, Lymphocytes % (Manual) 11L, Monocytes % (Manual) 2, Eosinophils % ( Manual) 0, Basophils % (Manual) 0, Band Neutrophils 0, Platelet Estimate Adequate, Platelet Morphology Normal, Hypochromasia 1+, Anisocytosis 1+, Sodium Level 136, Potassium Level 4.4, Chloride Level 101, Carbon Dioxide Level 26, Anion Gap 9, Blood Urea Nitrogen 18, Creatinine 1.2, Estimat Glomerular Filtration Rate 54.5, Glucose Level 206H, Calcium Level 9.0, Phosphorus Level 3.6, Albumin 3.1L Current Medications Medications (Trade) Dose Ordered Sig/Marline Route PRN Reason Start Time Stop Time Status Last Admin Dose Admin Acetaminophen (Tylenol) 650 mg Q4H PRN ORAL Mild Pain/Temp > 100.5 10/28/18 19:15 11/27/18 11:14 10/29/18 06:40 Albuterol/ Ipratropium (Albuterol/ Ipratropium) 3 ml Q4H PRN HHN Shortness of Breath 10/28/18 11:15 11/02/18 11:14 Carvedilol (Coreg) 6.25 mg EVERY 12 HOURS ORAL 10/28/18 13:00 11/27/18 12:59 10/29/18 08:45 Ceftriaxone Sodium 1 gm/ Dextrose 55 ml @ 110 mls/hr Q24H IVPB 10/28/18 15:00 11/04/18 14:59 10/28/18 16:42 Clopidogrel Bisulfate (Plavix) 75 mg DAILY ORAL 10/29/18 09:00 11/28/18 08:59 10/29/18 08:45 Dextrose (Dextrose 50%) 25 ml Q30M PRN IV Hypoglycemia 10/28/18 11:15 11/27/18 11:14 Dextrose (Dextrose 50%) 50 ml Q30MIN PRN IV Hypoglycemia 10/28/18 11:15 11/27/18 11:14 Heparin Sodium (Porcine) (Heparin 5000 units/ml) 5,000 units EVERY 12 HOURS SUBQ 10/28/18 21:00 11/27/18 20:59 10/29/18 08:48 Levothyroxine Sodium (Synthroid) 25 mcg DAILY@0630 ORAL 10/29/18 06:30 11/28/18 06:29 10/29/18 05:36 Methylprednisolone Sodium Succinate (Solu-MEDROL) 60 mg EVERY 6 HOURS IV 10/28/18 18:00 11/27/18 17:59 10/29/18 05:35 Ondansetron HCl (Zofran) 4 mg Q6H PRN IVP Nausea & Vomiting 10/28/18 11:15 11/27/18 11:14 Patient Own Medication (Patient's Own Med) 1 ea BID OPHTHALM 10/29/18 09:00 11/28/18 08:59 10/29/18 08:45 Patient Own Medication (Patient's Own Med) 1 ea BID OPHTHALM 10/29/18 09:00 11/28/18 08:59 Future Hold Patient Own Medication (Patient's Own Med) 1 ea DAILY OPHTHALM 10/29/18 09:00 11/28/18 08:59 10/29/18 08:45 Polyethylene Glycol (Miralax) 17 gm DAILYPRN PRN ORAL Constipation 10/28/18 11:15 11/27/18 11:14 Promethazine HCl/ Codeine (Phenergan with Codeine) 5 ml Q4H PRN ORAL For Cough 10/28/18 14:15 11/27/18 14:14 Temazepam (Restoril) 15 mg HSPRN PRN ORAL Insomnia 10/28/18 21:00 11/04/18 20:59 Theophylline (Domenic-Dur) 100 mg EVERY 12 HOURS ORAL 10/28/18 21:00 11/27/18 20:59 10/29/18 08:44 Halina Hameed MD Oct 29, 2018 10:40
[2018-10-29 12:00] VITALS: BP 138/72
--- NOTE | 2018-10-29 12:18 | Diagnostic Imaging Report ---
Indication: Dyspnea Comparison: 10/28/2018 A single view chest radiograph was obtained. Findings: Cardiomediastinal appearance is within normal limits for age. The lungs are clear. Pulmonary vascularity is appropriate. The diaphragmatic contour is smooth and costophrenic angles are sharp. No pleural effusions are identified. The bones are unremarkable. Impression: No acute findings
[2018-10-29] MEDS: cefTRIAXone 1 GM in D5W 55 ML IVPB SCH (14:23)
[2018-10-29 16:00] VITALS: BP 131/65
--- NOTE | 2018-10-29 16:08 | NUR ---
CASE MANAGEMENT:REVIEW 68 YR OLD FEMALE BIBA FROM HOME CC: COUGH AND COLD X2 DAYS. SOB SI: COPD AND CHF EXACERBATION 98.7 105 22 141/75 94% ON RA WBC+13.0 CR+1.4 IS: ASA PO NITRO 1" IV LASIX DUONEB HHN Q15MIN IV SOLUMEDROL CHEST XRAY : TO TELEMETRY UNIT
--- NOTE | 2018-10-29 19:09 | Coder Physician Query ---
Clarification is required for compliance, coding accuracy, and to reflect severity of illness for this patient Dear Dr. Ernst Sandhu Date: _10/29/18 CDS Name: Aquilino Clinical presentation: The patient is a 68-year-old, female, who presents with a chief complaint of shortness of breath for 2 days and progressively worsening over past 24 hours. h&p: acute on Chronic congestive heart failure Left ventricular ejection fraction estimated to be 30-35%. BNP: 6529 Rx: Lasix 40 mg/IV Please respond to the following question: Is there a diagnosis acute on Chronic congestive heart failure? If so please state below. PHYSICIAN RESPONSE: [ x ] Systolic [ ] Diastolic [ ] Combined [ ] Unable to determine [ ] Other Present on Admission: [x] Yes [] No [] Clinically Undetermined Physician signature Date Please also document in your Progress Notes and/or Discharge Summary and indicate if the condition was present on admission. SHAHIDD
--- NOTE | 2018-10-29 19:36 | NUR ---
NURSE NOTES: Received report from JERZY Matute, patient in stable condition, AOx4, denies pain at this time. Resting comfortably in bed. IV site right wrist, intact, patent, asymptomatic. Bed lowest position, brakes on, call light within reach, will continue to monitor and reassess.
--- NOTE | 2018-10-29 19:36 | NUR ---
HAND-OFF: Report given to Teri RN. Plan of care endorsed. .
[2018-10-29 20:00] VITALS: BP_SYST 136; BP_SYST 156; BP_DIAS 91
[2018-10-29] MEDS ORDERED: MUPIROCIN22 GM TOPIC (20:04)
--- NOTE | 2018-10-29 21:07 | Cardiology Progress Note ---
Assessment/Plan Assessment/Plan chf tratmetn iv lasix acei , bb , will need to consider entresto as out pt a pt with frequent readmission for now continue acei adn bb and Aldactone icd may be needed in future [id number] Objective Last 24 Hour Vital Signs Date Time Temp Pulse Resp B/P (MAP) Pulse Ox O2 Delivery O2 Flow Rate FiO2 10/29/18 20:30 72 136/91 10/29/18 20:00 97.6 72 18 136/91 (106) 97 10/29/18 19:43 99 Nasal Cannula 2.0 28 10/29/18 16:00 65 10/29/18 16:00 97.6 64 20 131/65 (87) 97 10/29/18 13:59 97.6 10/29/18 13:03 73 10/29/18 12:00 97.6 65 20 138/72 (94) 97 10/29/18 09:00 Nasal Cannula 2.0 10/29/18 08:45 68 133/78 10/29/18 08:00 97.7 68 21 133/78 (96) 97 10/29/18 08:00 79 10/29/18 07:30 96 Nasal Cannula 2.0 28 10/29/18 04:00 97.5 69 18 141/83 (102) 95 10/29/18 04:00 95 10/29/18 00:00 97.5 77 18 136/80 (98) 95 10/29/18 00:00 78 10/28/18 22:00 Nasal Cannula 2.0 Intake and Output 10/28/18 10/29/18 19:00 07:00 Intake Total 240 ml 200 ml Balance 240 ml 200 ml Intake Oral 240 ml IV Total 200 ml # Voids 3 3 Laboratory Tests Test 10/29/18 05:36 White Blood Count 9.5 K/UL (4.8-10.8) Red Blood Count 3.66 M/UL (4.20-5.40) L Hemoglobin 11.2 G/DL (12.0-16.0) L Hematocrit 34.5 % (37.0-47.0) L Mean Corpuscular Volume 94 FL (80-99) Mean Corpuscular Hemoglobin 30.7 PG (27.0-31.0) Mean Corpuscular Hemoglobin Concent 32.6 G/DL (32.0-36.0) Red Cell Distribution Width 12.0 % (11.6-14.8) Platelet Count 239 K/UL (150-450) Mean Platelet Volume 7.0 FL (6.5-10.1) Neutrophils (%) (Auto) % (45.0-75.0) Lymphocytes (%) (Auto) % (20.0-45.0) Monocytes (%) (Auto) % (1.0-10.0) Eosinophils (%) (Auto) % (0.0-3.0) Basophils (%) (Auto) % (0.0-2.0) Differential Total Cells Counted 100 Neutrophils % (Manual) 87 % (45-75) H Lymphocytes % (Manual) 11 % (20-45) L Monocytes % (Manual) 2 % (1-10) Eosinophils % (Manual) 0 % (0-3) Basophils % (Manual) 0 % (0-2) Band Neutrophils 0 % (0-8) Platelet Estimate Adequate Platelet Morphology Normal Hypochromasia 1+ Anisocytosis 1+ Sodium Level 136 MMOL/L (136-145) Potassium Level 4.4 MMOL/L (3.5-5.1) Chloride Level 101 MMOL/L (98-107) Carbon Dioxide Level 26 MMOL/L (21-32) Anion Gap 9 mmol/L (5-15) Blood Urea Nitrogen 18 mg/dL (7-18) Creatinine 1.2 MG/DL (0.55-1.30) Estimat Glomerular Filtration Rate 54.5 mL/min (>60) Glucose Level 206 MG/DL (74-106) H Calcium Level 9.0 MG/DL (8.5-10.1) Phosphorus Level 3.6 MG/DL (2.5-4.9) Troponin I 0.006 ng/mL (0.000-0.056) Albumin 3.1 G/DL (3.4-5.0) L Microbiology Date/Time Source Procedure Growth Status 10/28/18 16:11 Sputum Gram Stain - Final Resulted 10/28/18 16:11 Sputum Sputum Culture Pending Resulted Juan Be MD Oct 29, 2018 21:07
[2018-10-29] MEDS: Lisinopril 20mg tab ORAL SCH (22:15)
--- NOTE | 2018-10-29 22:45 | Consultation ---
DATE OF CONSULTATION: 10/29/2018 CARDIOLOGY CONSULTATION CONSULTING PHYSICIAN: Juan Be M.D. REFERRING PHYSICIAN: Charly Sandhu M.D. REASON FOR REFERRAL: Congestive heart failure. HISTORY OF PRESENT ILLNESS: This is an elderly female, who presented to the hospital because of shortness of breath. The patient has a history of several hospitalizations here under different doctors' care. Basically indicates for the past two to three days prior to admission, she has had increasing shortness of breath, unable to sleep because of shortness of breath. She uses two pillows. She has had occasional pain in the chest, but not significant. There is no dizziness or lightheadedness. No heart pounding or palpitations. PAST MEDICAL HISTORY: Positive for history of recent hospitalization back in June 2018 for congestive heart failure exacerbation, history of hypertension, COPD, ejection fraction 30% to 35%, global hypokinesis with questionably tiny reversible defect in the apex and systolic dysfunction as well as history of CVA with right-sided hemiparesis, Parkinson disease, hyperlipidemia, and hypothyroidism. ALLERGIES: She is allergic to morphine, that cause her to become nauseated. SOCIAL HISTORY: She quit smoking approximately a year and a half ago. She does not drink alcoholic beverages. No drug use. REVIEW OF SYSTEMS: GASTROINTESTINAL: She had some diarrhea last week. GENITOURINARY: Negative. PULMONARY: Occasional coughing and wheezing. CONSTITUTIONAL: No fever, chills, or night sweats. NEUROLOGIC: Weakness in the arm. PHYSICAL EXAMINATION: GENERAL: Shows to be an elderly female, in no respiratory distress. NECK: Supple. No jugular venous distention. LUNGS: Appear to be relatively clear at the present time. CARDIAC: Regular rate and rhythm. No heaves or thrills noted. ABDOMEN: Soft, nontender. Positive bowel sounds. EXTREMITIES: There is no clubbing or cyanosis. There is no edema. NEUROLOGIC: She is awake and alert, responsive, in no apparent distress. LABORATORY AND DIAGNOSTIC DATA: White count 9.5 down from 13, hemoglobin 11.2, and platelet count of 239,000. Sodium is 136, potassium 4.4, chloride 101, bicarb 26, BUN 18, and creatinine 1.2, down from 1.4. Glucose of 206. 1.2. Troponin on three separate occasions have been negative in this hospitalization. ProBNP of 6592. Albumin of 3.5. Chest x-ray shows no acute findings. Lungs are clear. Pulmonary vasculature appears to be normal. Echocardiogram performed shows ejection of 30% to 35%. No significant valvular pathology. Global hypokinesis is noted. ASSESSMENT AND PLAN: 1. Cardiomyopathy. 2. Acute exacerbation of congestive heart failure. 3. Possible chronic obstructive pulmonary disease. 4. History of hypertension. 5. Hypothyroidism. This patient was seen in cardiac consultation. The patient is on Lasix once a day at home. She had frequent exacerbation of congestive heart failure and that likely this would be another episode. She should be continued on her guideline directed medical therapy including her diuretics and beta blockers as well as NEEL inhibitors and Aldactone. In the future, she may be candidate for Entresto as well to be started as an outpatient. The patient had a previous myocardial perfusion imaging that shows minimal in the apex of questionable severity. At some point this may be evaluated as outpatient to make sure there is no underlying coronary artery disease the cause of her cardiomyopathy. In the interim, she should be continued on diuretics twice a day. I will be following the patient along with you. Juan Be M.D. DR: THANG JOB#: [id number] CC:
--- NOTE | 2018-10-29 23:59 | Internal Med Progress Note ---
Subjective Physician Name Charly Sandhu Attending Physician Charly Sandhu MD Current Medications Medications (Trade) Dose Ordered Sig/Marline Route PRN Reason Start Time Stop Time Status Last Admin Dose Admin Acetaminophen (Tylenol) 650 mg Q4H PRN ORAL Mild Pain/Temp > 100.5 10/28/18 19:15 11/27/18 11:14 10/29/18 20:33 Albuterol/ Ipratropium (Albuterol/ Ipratropium) 3 ml Q4H PRN HHN Shortness of Breath 10/28/18 11:15 11/02/18 11:14 Carvedilol (Coreg) 6.25 mg EVERY 12 HOURS ORAL 10/28/18 13:00 11/27/18 12:59 10/29/18 20:30 Ceftriaxone Sodium 1 gm/ Dextrose 55 ml @ 110 mls/hr Q24H IVPB 10/28/18 15:00 11/04/18 14:59 10/29/18 14:23 Clopidogrel Bisulfate (Plavix) 75 mg DAILY ORAL 10/29/18 09:00 11/28/18 08:59 10/29/18 08:45 Dextrose (Dextrose 50%) 50 ml Q30MIN PRN IV Hypoglycemia 10/28/18 11:15 11/27/18 11:14 Furosemide (Lasix) 20 mg EVERY 12 HOURS IV 10/29/18 21:15 11/28/18 21:14 10/29/18 22:14 Heparin Sodium (Porcine) (Heparin 5000 units/ml) 5,000 units EVERY 12 HOURS SUBQ 10/28/18 21:00 11/27/18 20:59 10/29/18 20:37 Levothyroxine Sodium (Synthroid) 25 mcg DAILY@0630 ORAL 10/29/18 06:30 11/28/18 06:29 10/29/18 05:36 Lisinopril (Prinivil) 20 mg Q12HR ORAL 10/29/18 21:15 11/28/18 21:14 10/29/18 22:15 Methylprednisolone Sodium Succinate (Solu-MEDROL) 60 mg EVERY 8 HOURS IV 10/29/18 14:00 11/27/18 17:59 10/29/18 22:14 Ondansetron HCl (Zofran) 4 mg Q6H PRN IVP Nausea & Vomiting 10/28/18 11:15 11/27/18 11:14 Patient Own Medication (Patient's Own Med) 1 ea BID OPHTHALM 10/29/18 09:00 11/28/18 08:59 10/29/18 17:26 Patient Own Medication (Patient's Own Med) 1 ea BID OPHTHALM 10/29/18 09:00 11/28/18 08:59 Future Hold Patient Own Medication (Patient's Own Med) 1 ea DAILY OPHTHALM 10/29/18 09:00 11/28/18 08:59 10/29/18 08:45 Polyethylene Glycol (Miralax) 17 gm DAILYPRN PRN ORAL Constipation 10/28/18 11:15 11/27/18 11:14 Promethazine HCl/ Codeine (Phenergan with Codeine) 5 ml Q4H PRN ORAL For Cough 10/28/18 14:15 11/27/18 14:14 Spironolactone (Aldactone) 25 mg DAILY ORAL 10/30/18 09:00 11/29/18 08:59 Temazepam (Restoril) 15 mg HSPRN PRN ORAL Insomnia 10/28/18 21:00 11/04/18 20:59 Theophylline (Domenic-Dur) 100 mg EVERY 12 HOURS ORAL 10/28/18 21:00 11/27/18 20:59 10/29/18 20:29 Allergies: Coded Allergies: NO KNOWN ALLERGIES (Verified Allergy, Unknown, 10/29/18) Subjective awake, alert, responsive, less SOB, No CP. Objective Last Vital Signs Date Time Temp Pulse Resp B/P (MAP) Pulse Ox O2 Delivery O2 Flow Rate FiO2 10/29/18 22:15 156/91 10/29/18 21:00 Nasal Cannula 2.0 10/29/18 20:30 72 10/29/18 20:00 97.6 18 97 10/29/18 19:43 28 Laboratory Tests Test 10/29/18 05:36 White Blood Count 9.5 K/UL (4.8-10.8) Red Blood Count 3.66 M/UL (4.20-5.40) L Hemoglobin 11.2 G/DL (12.0-16.0) L Hematocrit 34.5 % (37.0-47.0) L Mean Corpuscular Volume 94 FL (80-99) Mean Corpuscular Hemoglobin 30.7 PG (27.0-31.0) Mean Corpuscular Hemoglobin Concent 32.6 G/DL (32.0-36.0) Red Cell Distribution Width 12.0 % (11.6-14.8) Platelet Count 239 K/UL (150-450) Mean Platelet Volume 7.0 FL (6.5-10.1) Neutrophils (%) (Auto) % (45.0-75.0) Lymphocytes (%) (Auto) % (20.0-45.0) Monocytes (%) (Auto) % (1.0-10.0) Eosinophils (%) (Auto) % (0.0-3.0) Basophils (%) (Auto) % (0.0-2.0) Differential Total Cells Counted 100 Neutrophils % (Manual) 87 % (45-75) H Lymphocytes % (Manual) 11 % (20-45) L Monocytes % (Manual) 2 % (1-10) Eosinophils % (Manual) 0 % (0-3) Basophils % (Manual) 0 % (0-2) Band Neutrophils 0 % (0-8) Platelet Estimate Adequate Platelet Morphology Normal Hypochromasia 1+ Anisocytosis 1+ Sodium Level 136 MMOL/L (136-145) Potassium Level 4.4 MMOL/L (3.5-5.1) Chloride Level 101 MMOL/L (98-107) Carbon Dioxide Level 26 MMOL/L (21-32) Anion Gap 9 mmol/L (5-15) Blood Urea Nitrogen 18 mg/dL (7-18) Creatinine 1.2 MG/DL (0.55-1.30) Estimat Glomerular Filtration Rate 54.5 mL/min (>60) Glucose Level 206 MG/DL (74-106) H Calcium Level 9.0 MG/DL (8.5-10.1) Phosphorus Level 3.6 MG/DL (2.5-4.9) Troponin I 0.006 ng/mL (0.000-0.056) Albumin 3.1 G/DL (3.4-5.0) L Microbiology Date/Time Source Procedure Growth Status 10/28/18 16:11 Sputum Gram Stain - Final Resulted 10/28/18 16:11 Sputum Sputum Culture Pending Resulted Intake and Output 10/28/18 10/29/18 19:00 07:00 Intake Total 240 ml 200 ml Balance 240 ml 200 ml Intake Oral 240 ml IV Total 200 ml # Voids 3 3 Objective General: No acute distress, awake and alert HEENT: NCAT, sclera anicteric, PERRL, EOMI. Neck: Supple, no significant jugular venous distention, Lungs: Good inspiratory effort, clear to auscultation bilaterally, decrease air on bases, no Wheeze or Rales. Heart: Regular rate and rhythm, normal S1/S2, no murmur. Abdomen: soft, nontender, nondistended. Normoactive bowel sounds. / Rectal: Refused and deferred. Extremities: No Cyanosis , clubbing or edema. Neuro: A&O x 3, Able to move all extremities Skin: warm, no rashes or lesions Psych: Normal mood and affect Assessment/Plan Assessment/Plan 1. Shortness of breath and cough most likely due to Acute COPD exacerbation. 2. Obesity 3. acute on Chronic congestive heart failure. 4. Cerebrovascular disease. 5. Hypertension. 6. Right hemiplegia. 7. Hypothyroidism. 8. Hypercholesterolemia. TREATMENT: in telemetry, [place] Tx, Solumedral IV, Heparin SQ, Full code F/U with Zari recommendation. Monitor labs and cultures. Charly Sandhu MD Oct 29, 2018 23:59
[2018-10-30] VITALS: BP 100/68
[2018-10-30 04:00] VITALS: BP 127/69
[2018-10-30] MEDS: Solu-MEDROL 125mg Inj IV SCH ×2 (05:55→14:25)
[2018-10-30] MEDS: Levothyroxine 25mcg tab ORAL SCH (05:55)
[2018-10-30 06:52] LABS: HEMATOCRIT 35.4 % (37.0-47.0); HEMOGLOBIN 11.4 G/DL (12.0-16.0); MEAN CORPUSCULAR VOLUME 95 FL (80-99); PLATELET COUNT 284 K/UL (150-450); RED BLOOD COUNT 3.74 M/UL (4.20-5.40); RED CELL DISTRIBUTION WIDTH 12.1 % (11.6-14.8); WHITE BLOOD COUNT 16.4 K/UL (4.8-10.8)
--- NOTE | 2018-10-30 07:10 | NUR ---
HAND-OFF: Report given to JERZY Ellis, patient in stable condition, plan of care endorsed.
[2018-10-30 07:32] LABS: ALANINE AMINOTRANSFERASE 22 U/L (12-78); ALBUMIN/GLOBULIN RATIO 0.7 (1.0-2.7); ALKALINE PHOSPHATASE 93 U/L (46-116); ANION GAP 9 mmol/L (5-15); ASPARTATE AMINO TRANSFERASE 18 U/L (15-37); BILIRUBIN,TOTAL 0.3 MG/DL (0.2-1.0); BLOOD UREA NITROGEN 26 mg/dL (7-18); CALCIUM 9.3 MG/DL (8.5-10.1); CARBON DIOXIDE 26 MMOL/L (21-32); CHLORIDE 102 MMOL/L (98-107); CREATININE 1.3 MG/DL (0.55-1.30); POTASSIUM 4.4 MMOL/L (3.5-5.1); SODIUM 137 MMOL/L (136-145)
--- NOTE | 2018-10-30 07:46 | NUR ---
NURSE NOTES: Received report from JERZY Shankar. Patient in bed resting, no active s/s cardiac, respiratory distress noticed at this time. AOx4, patient on 2L oxygen via NC. Patient requesting to take a break from NC while she is eating. IV on left hand 22G, asymptomatic, patent, intact. Bed in lowest position, side rails upx2, call light within reach. Will continue to monitor.
[2018-10-30 08:00] VITALS: BP 134/79
--- NOTE | 2018-10-30 08:13 | NUR ---
RADIOLOGY: PCXR HAS BEEN COMPLETED 0800 HRS. NF
[2018-10-30] MEDS: Carvedilol 6.25mg Tab ORAL SCH (08:53)
[2018-10-30] MEDS: DUREZOL 0.05% OPHTHALM SCH (08:54)
[2018-10-30] MEDS: Lisinopril 20mg tab ORAL SCH (08:54)
[2018-10-30] MEDS: Theophylline ER 100mg ORAL SCH (08:54)
[2018-10-30] MEDS: PROLENSA 0.07% OPHTHALM SCH (08:54)
[2018-10-30] MEDS: Heparin 5000 units/ml inj SUBQ SCH (08:56)
[2018-10-30] MEDS ORDERED: Spironolactone 25mg tab ORAL SCH (09:00)
[2018-10-30] MEDS ORDERED: SPIRONOLACTONE25 MG ORAL (11:48)
[2018-10-30] MEDS ORDERED: PLAVIX75 MG ORAL (11:48)
[2018-10-30] MEDS ORDERED: PRINIVIL20 MG ORAL (11:48)
--- NOTE | 2018-10-30 11:49 | Pulmonology Progress Note ---
Assessment/Plan Problems: (1) COPD exacerbation (2) HTN (hypertension) (3) Hypothyroidism (4) EF 35% (5) Anxiety disorder (6) Hemiparesis affecting right side as late effect of cerebrovascular accident (CVA) Assessment/Plan improving all reviewed respiratory treatment titrate fio2 to sat of 92% sputum showed normal shelly taper steroids symptomatic treatment f/u sputum results. Subjective ROS Limited/Unobtainable: No Constitutional: Reports: no symptoms HEENT: Repors: no symptoms Respiratory: Reports: no symptoms Allergies: Coded Allergies: NO KNOWN ALLERGIES (Verified Allergy, Unknown, 10/29/18) Objective Last 24 Hour Vital Signs Date Time Temp Pulse Resp B/P (MAP) Pulse Ox O2 Delivery O2 Flow Rate FiO2 10/30/18 09:00 Nasal Cannula 2.0 10/30/18 08:54 134/79 10/30/18 08:53 64 134/79 10/30/18 08:00 98.2 64 18 134/79 (97) 95 10/30/18 08:00 63 10/30/18 06:52 97 Nasal Cannula 2.0 28 10/30/18 04:00 71 10/30/18 04:00 98.0 72 18 127/69 (88) 96 10/30/18 00:00 98.4 63 18 100/68 (79) 97 10/30/18 00:00 63 10/29/18 22:15 156/91 10/29/18 21:00 Nasal Cannula 2.0 10/29/18 20:30 72 136/91 10/29/18 20:00 70 10/29/18 20:00 97.6 72 18 156/91 (112) 97 10/29/18 19:43 99 Nasal Cannula 2.0 28 10/29/18 16:00 65 10/29/18 16:00 97.6 64 20 131/65 (87) 97 10/29/18 13:59 97.6 10/29/18 13:03 73 10/29/18 12:00 97.6 65 20 138/72 (94) 97 Intake and Output 10/29/18 10/30/18 19:00 07:00 Intake Total 240 ml Balance 240 ml Intake Oral 240 ml # Voids 35 5 General Appearance: WD/WN HEENT: normocephalic, atraumatic Respiratory/Chest: chest wall non-tender, lungs clear Cardiovascular: normal peripheral pulses, normal rate Abdomen: normal bowel sounds, soft, non tender Extremities: no clubbing Lymphatic: no neck adenopathy Microbiology Date/Time Source Procedure Growth Status 10/28/18 16:11 Sputum Gram Stain - Final Resulted 10/28/18 16:11 Sputum Sputum Culture - Preliminary NORMAL UPPER RESPIRATORY SHELLY AT 24 ... Resulted Laboratory Tests 10/30/18 05:30: White Blood Count 16.4#H, Red Blood Count 3.74L, Hemoglobin 11.4L, Hematocrit 35.4L, Mean Corpuscular Volume 95, Mean Corpuscular Hemoglobin 30.4, Mean Corpuscular Hemoglobin Concent 32.1, Red Cell Distribution Width 12.1, Platelet Count 284, Mean Platelet Volume 7.0, Neutrophils (%) (Auto) , Lymphocytes (%) ( Auto) , Monocytes (%) (Auto) , Eosinophils (%) (Auto) , Basophils (%) (Auto) , Differential Total Cells Counted 100, Neutrophils % (Manual) 87H, Lymphocytes % (Manual) 9L, Monocytes % (Manual) 4, Eosinophils % (Manual) 0, Basophils % ( Manual) 0, Band Neutrophils 0, Platelet Estimate Adequate, Platelet Morphology Normal, Red Blood Cell Morphology Normal, Sodium Level 137, Potassium Level 4.4 , Chloride Level 102, Carbon Dioxide Level 26, Anion Gap 9, Blood Urea Nitrogen 26H, Creatinine 1.3, Estimat Glomerular Filtration Rate 49.7, Glucose Level 185H , Calcium Level 9.3, Total Bilirubin 0.3, Aspartate Amino Transf (AST/SGOT) 18, Alanine Aminotransferase (ALT/SGPT) 22, Alkaline Phosphatase 93, Troponin I 0.004, Pro-B-Type Natriuretic Peptide 3044H, Total Protein 7.6, Albumin 3.0L, Globulin 4.6, Albumin/Globulin Ratio 0.7L Current Medications Medications (Trade) Dose Ordered Sig/Marline Route PRN Reason Start Time Stop Time Status Last Admin Dose Admin Acetaminophen (Tylenol) 650 mg Q4H PRN ORAL Mild Pain/Temp > 100.5 10/28/18 19:15 11/27/18 11:14 10/30/18 08:59 Albuterol/ Ipratropium (Albuterol/ Ipratropium) 3 ml Q4H PRN HHN Shortness of Breath 10/28/18 11:15 11/02/18 11:14 Carvedilol (Coreg) 6.25 mg EVERY 12 HOURS ORAL 10/28/18 13:00 11/27/18 12:59 10/30/18 08:53 Ceftriaxone Sodium 1 gm/ Dextrose 55 ml @ 110 mls/hr Q24H IVPB 10/28/18 15:00 11/04/18 14:59 10/29/18 14:23 Clopidogrel Bisulfate (Plavix) 75 mg DAILY ORAL 10/29/18 09:00 11/28/18 08:59 10/30/18 08:54 Dextrose (Dextrose 50%) 50 ml Q30MIN PRN IV Hypoglycemia 10/28/18 11:15 11/27/18 11:14 Furosemide (Lasix) 20 mg EVERY 12 HOURS IV 10/29/18 21:15 11/28/18 21:14 10/30/18 08:55 Heparin Sodium (Porcine) (Heparin 5000 units/ml) 5,000 units EVERY 12 HOURS SUBQ 10/28/18 21:00 11/27/18 20:59 10/30/18 08:56 Levothyroxine Sodium (Synthroid) 25 mcg DAILY@0630 ORAL 10/29/18 06:30 11/28/18 06:29 10/30/18 05:55 Lisinopril (Prinivil) 20 mg Q12HR ORAL 10/29/18 21:15 11/28/18 21:14 10/30/18 08:54 Methylprednisolone Sodium Succinate (Solu-MEDROL) 60 mg EVERY 8 HOURS IV 10/29/18 14:00 11/27/18 17:59 10/30/18 05:55 Ondansetron HCl (Zofran) 4 mg Q6H PRN IVP Nausea & Vomiting 10/28/18 11:15 11/27/18 11:14 Patient Own Medication (Patient's Own Med) 1 ea BID OPHTHALM 10/29/18 09:00 11/28/18 08:59 10/30/18 08:54 Patient Own Medication (Patient's Own Med) 1 ea BID OPHTHALM 10/29/18 09:00 11/28/18 08:59 Future Hold Patient Own Medication (Patient's Own Med) 1 ea DAILY OPHTHALM 10/29/18 09:00 8/10/19 08:59 10/30/18 08:54 Polyethylene Glycol (Miralax) 17 gm DAILYPRN PRN ORAL Constipation 10/28/18 11:15 11/27/18 11:14 Promethazine HCl/ Codeine (Phenergan with Codeine) 5 ml Q4H PRN ORAL For Cough 10/28/18 14:15 11/27/18 14:14 Spironolactone (Aldactone) 25 mg DAILY ORAL 10/30/18 09:00 11/29/18 08:59 10/30/18 08:54 Temazepam (Restoril) 15 mg HSPRN PRN ORAL Insomnia 10/28/18 21:00 11/04/18 20:59 Theophylline (Domenic-Dur) 100 mg EVERY 12 HOURS ORAL 10/28/18 21:00 11/27/18 20:59 10/30/18 08:54 Halina Hameed MD Oct 30, 2018 11:49
[2018-10-30] MEDS ORDERED: MEDROL DOSEPAK4 MG ORAL (11:50)
[2018-10-30 12:00] VITALS: BP 134/76
--- NOTE | 2018-10-30 12:21 | Diagnostic Imaging Report ---
Indication: Dyspnea Comparison: 10/29/2018 A single view chest radiograph was obtained. Findings: Heart remains prominent in size. Lungs remain clear. IMPRESSION: No change
--- NOTE | 2018-10-30 13:07 | NUR ---
NURSE NOTES: Discharge papers ready, patient tapered off oxygen per Dr. Hameed, tolerating well O2 sat 96%. Awaiting for family member to lease picker. Per patient does not have luz and office is closed, need to wait for the family member to open door for house.
[2018-10-30] MEDS: cefTRIAXone 1 GM in D5W 55 ML IVPB SCH (14:25)
--- NOTE | 2018-10-30 14:58 | Internal Med Progress Note ---
Subjective Physician Name Charly Sandhu Attending Physician Charly Sandhu MD Current Medications Medications (Trade) Dose Ordered Sig/Marline Route PRN Reason Start Time Stop Time Status Last Admin Dose Admin Acetaminophen (Tylenol) 650 mg Q4H PRN ORAL Mild Pain/Temp > 100.5 10/28/18 19:15 11/27/18 11:14 10/30/18 08:59 Albuterol/ Ipratropium (Albuterol/ Ipratropium) 3 ml Q4H PRN HHN Shortness of Breath 10/28/18 11:15 11/02/18 11:14 Carvedilol (Coreg) 6.25 mg EVERY 12 HOURS ORAL 10/28/18 13:00 11/27/18 12:59 10/30/18 08:53 Ceftriaxone Sodium 1 gm/ Dextrose 55 ml @ 110 mls/hr Q24H IVPB 10/28/18 15:00 11/04/18 14:59 10/30/18 14:25 Clopidogrel Bisulfate (Plavix) 75 mg DAILY ORAL 10/29/18 09:00 11/28/18 08:59 10/30/18 08:54 Dextrose (Dextrose 50%) 50 ml Q30MIN PRN IV Hypoglycemia 10/28/18 11:15 11/27/18 11:14 Furosemide (Lasix) 20 mg EVERY 12 HOURS IV 10/29/18 21:15 11/28/18 21:14 10/30/18 08:55 Heparin Sodium (Porcine) (Heparin 5000 units/ml) 5,000 units EVERY 12 HOURS SUBQ 10/28/18 21:00 11/27/18 20:59 10/30/18 08:56 Levothyroxine Sodium (Synthroid) 25 mcg DAILY@0630 ORAL 10/29/18 06:30 11/28/18 06:29 10/30/18 05:55 Lisinopril (Prinivil) 20 mg Q12HR ORAL 10/29/18 21:15 11/28/18 21:14 10/30/18 08:54 Methylprednisolone Sodium Succinate (Solu-MEDROL) 60 mg EVERY 8 HOURS IV 10/29/18 14:00 11/27/18 17:59 10/30/18 14:25 Ondansetron HCl (Zofran) 4 mg Q6H PRN IVP Nausea & Vomiting 10/28/18 11:15 11/27/18 11:14 Patient Own Medication (Patient's Own Med) 1 ea BID OPHTHALM 10/29/18 09:00 11/28/18 08:59 10/30/18 08:54 Patient Own Medication (Patient's Own Med) 1 ea BID OPHTHALM 10/29/18 09:00 11/28/18 08:59 Future Hold Patient Own Medication (Patient's Own Med) 1 ea DAILY OPHTHALM 10/29/18 09:00 11/28/18 08:59 10/30/18 08:54 Polyethylene Glycol (Miralax) 17 gm DAILYPRN PRN ORAL Constipation 10/28/18 11:15 11/27/18 11:14 Promethazine HCl/ Codeine (Phenergan with Codeine) 5 ml Q4H PRN ORAL For Cough 10/28/18 14:15 11/27/18 14:14 Spironolactone (Aldactone) 25 mg DAILY ORAL 10/30/18 09:00 11/29/18 08:59 10/30/18 08:54 Temazepam (Restoril) 15 mg HSPRN PRN ORAL Insomnia 10/28/18 21:00 11/04/18 20:59 Theophylline (Domenic-Dur) 100 mg EVERY 12 HOURS ORAL 10/28/18 21:00 11/27/18 20:59 10/30/18 08:54 Allergies: Coded Allergies: NO KNOWN ALLERGIES (Verified Allergy, Unknown, 10/29/18) Subjective awake, alert, responsive, less SOB, No CP. Objective Last Vital Signs Date Time Temp Pulse Resp B/P (MAP) Pulse Ox O2 Delivery O2 Flow Rate FiO2 10/30/18 12:00 98.5 72 18 134/76 (95) 96 10/30/18 09:00 Nasal Cannula 2.0 10/30/18 06:52 28 Laboratory Tests Test 10/30/18 05:30 White Blood Count 16.4 K/UL (4.8-10.8) #H Red Blood Count 3.74 M/UL (4.20-5.40) L Hemoglobin 11.4 G/DL (12.0-16.0) L Hematocrit 35.4 % (37.0-47.0) L Mean Corpuscular Volume 95 FL (80-99) Mean Corpuscular Hemoglobin 30.4 PG (27.0-31.0) Mean Corpuscular Hemoglobin Concent 32.1 G/DL (32.0-36.0) Red Cell Distribution Width 12.1 % (11.6-14.8) Platelet Count 284 K/UL (150-450) Mean Platelet Volume 7.0 FL (6.5-10.1) Neutrophils (%) (Auto) % (45.0-75.0) Lymphocytes (%) (Auto) % (20.0-45.0) Monocytes (%) (Auto) % (1.0-10.0) Eosinophils (%) (Auto) % (0.0-3.0) Basophils (%) (Auto) % (0.0-2.0) Differential Total Cells Counted 100 Neutrophils % (Manual) 87 % (45-75) H Lymphocytes % (Manual) 9 % (20-45) L Monocytes % (Manual) 4 % (1-10) Eosinophils % (Manual) 0 % (0-3) Basophils % (Manual) 0 % (0-2) Band Neutrophils 0 % (0-8) Platelet Estimate Adequate Platelet Morphology Normal Red Blood Cell Morphology Normal Sodium Level 137 MMOL/L (136-145) Potassium Level 4.4 MMOL/L (3.5-5.1) Chloride Level 102 MMOL/L (98-107) Carbon Dioxide Level 26 MMOL/L (21-32) Anion Gap 9 mmol/L (5-15) Blood Urea Nitrogen 26 mg/dL (7-18) H Creatinine 1.3 MG/DL (0.55-1.30) Estimat Glomerular Filtration Rate 49.7 mL/min (>60) Glucose Level 185 MG/DL (74-106) H Calcium Level 9.3 MG/DL (8.5-10.1) Total Bilirubin 0.3 MG/DL (0.2-1.0) Aspartate Amino Transf (AST/SGOT) 18 U/L (15-37) Alanine Aminotransferase (ALT/SGPT) 22 U/L (12-78) Alkaline Phosphatase 93 U/L (46-116) Troponin I 0.004 ng/mL (0.000-0.056) Pro-B-Type Natriuretic Peptide 3044 pg/mL (0-125) H Total Protein 7.6 G/DL (6.4-8.2) Albumin 3.0 G/DL (3.4-5.0) L Globulin 4.6 g/dL Albumin/Globulin Ratio 0.7 (1.0-2.7) L Microbiology Date/Time Source Procedure Growth Status 10/28/18 16:11 Sputum Gram Stain - Final Resulted 10/28/18 16:11 Sputum Sputum Culture - Preliminary NORMAL UPPER RESPIRATORY JUAN AT 24 ... Resulted Intake and Output 10/29/18 10/30/18 19:00 07:00 Intake Total 240 ml Balance 240 ml Intake Oral 240 ml # Voids 35 5 Objective General: No acute distress, awake and alert HEENT: NCAT, sclera anicteric, PERRL, EOMI. Neck: Supple, no significant jugular venous distention, Lungs: Good inspiratory effort, clear to auscultation bilaterally, decrease air on bases, no Wheeze or Rales. Heart: Regular rate and rhythm, normal S1/S2, no murmur. Abdomen: soft, nontender, nondistended. Normoactive bowel sounds. / Rectal: Refused and deferred. Extremities: No Cyanosis , clubbing or edema. Neuro: A&O x 3, Able to move all extremities Skin: warm, no rashes or lesions Psych: Normal mood and affect Assessment/Plan Assessment/Plan 1. Shortness of breath and cough most likely due to Acute COPD exacerbation. 2. Obesity 3. acute on Chronic congestive heart failure. 4. Cerebrovascular disease. 5. Hypertension. 6. Right hemiplegia. 7. Hypothyroidism. 8. Hypercholesterolemia. TREATMENT: in telemetry, [facility] Tx, Solumedral IV, Heparin SQ, Full code F/U with Zari recommendation. Monitor labs and cultures. DC home today , F/U with my office on Friday. Charly Sandhu MD Oct 30, 2018 14:58
[2018-10-30 16:00] VITALS: BP 148/85
--- NOTE | 2018-10-30 16:09 | Cardiology Report ---
APPROVED REPORT EKG Measurement Heart [id number] Sinus tachycardia with premature supraventricular complexes and with occasional premature ventricular complexes Possible Left atrial enlargement Anterior infarct, age undetermined Abnormal ECG
--- NOTE | 2018-10-30 17:37 | NUR ---
NURSE NOTES: Patient discharged to home with home health per Dr. Hameed. pick up returned to senior director of [employer], IV removed. ID removed and placed in shredder. Patient discharge with family member, taking private vehicle per patient's preference in a stable condition. Patient discharged with all belongings.
--- NOTE | 2018-10-31 22:12 | Discharge Summary ---
Discharge Summary Discharge Summary _ DATE OF ADMISSION: 10/28/2018 DATE OF DISCHARGE: 10/30/2018 DISCHARGED BY: Dr. Sandhu REASON FOR ADMISSION: 68 years old female with history of congestive heart failure, ejection fraction 30%, hypertension, COPD, presented to emergency department with shortness of breath for 2 days. Lying flat made it worse. Patient reported dyspnea on exertion and some chest tightness. She had productive cough, no hemoptysis. Laboratory work-up revealed negative troponin. EKG revealed sinus tachycardia with heart rate 105, no acute ischemic changes. Magnesium 1.6. Stable other electrolytes. Pro BNP 6592. BUN 15, creatinine 1.4. Chest x-ray revealed no evidence of acute cardiopulmonary pathology. Patient admitted to telemetry floor for further management CONSULTANTS: shelter case manager Dr. Be pulmonary Dr. Hameed [facility] COURSE: Patient admitted to telemetry floor. Serial troponin were negative. EKG revealed no acute ischemic changes. Patient was ruled out for acute NC. Echocardiogram revealed global left ventricular hypokinesis and severe anteroseptal hypokinesis. Left ventricular ejection fraction estimated to be 30 to 35%. Mild left ventricular hypertrophy. Right ventricular systolic pressure of 13. Guideline directed medical therapy for congestive heart failure with reduced ejection fraction continued with beta-jose, NEEL inhibitor, and Aldactone. Diuresis intensified with IV Lasix twice daily with close monitoring of volumes and cardiorenal parameters. Pro BNP trended down from initial 6592 down to 3044. Chest x-ray showed some improvement. Logistics Specialist nazarioed. Per shelter case manager, consider [facility] as outpatient since patient had frequent readmissions. For now continue NEEL inhibitor, beta-jose, Aldactone, and Lasix. Patient may require an ICD in future. Antiplatelet therapy with Plavix continued. Supplemental oxygen provided as needed to keep pulse oximetry above 90%. [employer] closely followed. Pulmonary toilet provided with nebulizing therapy around the clock and as needed. Chest physical therapy provided. Patient was started on intravenous steroids with gradual tapering down. Patient was started on empiric antibiotic. Sputum culture was negative. Trial of theophylline started. Antitussive provided as needed. Venous duplex bilateral lower extremity revealed no evidence of acute DVT. DVT prophylaxis provided. Renal parameters and electrolytes were closely monitored. Creatinine from 1.4 down to 1.3. Electrolytes corrected as needed/magnesium. Levothyroxine was continued. Supportive care provided. Patient clinically stabilized and was ready for discharge home with home health services. FINAL DIAGNOSES: Acute COPD exacerbation Acute on chronic systolic congestive heart failure Cardiomyopathy with EF 30-35% Obesity Cerebrovascular disease with history of CVA and right hemiplegia Hypertension Hypothyroidism Hypercholesterolemia DISCHARGE MEDICATIONS: See Medication Reconciliation list. DISCHARGE INSTRUCTIONS: Patient was discharged home with home health services. Follow up with primary care provider on Friday, 11/04 I have been assigned to dictate discharge summary for this account. I was not involved in the patient's management. Jolie Cordova NP Oct 31, 2018 22:11
== END 2018-10-30 17:40 | disposition home health service (06) | DRG 190 ==
LOC: EDBD 08:32 → EMR 08:53 → 2E 10:50 → EDBEDREQ 11:04
DX: J44.1 Chronic obstructive pulmonary disease with (acute) exacerbation (principal); I50.23 Acute on chronic systolic (congestive) heart failure; I69.351 Hemiplegia and hemiparesis following cerebral infarction affecting right dominant side; I42.9 Cardiomyopathy, unspecified; E66.9 Obesity, unspecified; Z68.37 Body mass index [BMI] 37.0-37.9, adult; I11.0 Hypertensive heart disease with heart failure; E78.5 Hyperlipidemia, unspecified; Z79.82 Long term (current) use of aspirin; G20 Parkinson's disease; Z88.6 Allergy status to analgesic agent; Z87.891 Personal history of nicotine dependence
CPT/HCPCS: 36415; 71045; 80048; 80053; 80069; 82248; 82550; 82553; 83735; 83880; 84484; 85007; 85025; 87070; 87205; 93005; 93306; 93970; 94640; 94664; 96374; 99285; J2405

== ENCOUNTER 2019-03-23 15:55 | Inpatient (IN) | payer MEDICARE, MEDICAID ==
[~2019-03-23] VITALS: Ht 165.1 cm; Wt 100.0 kg
[~2019-03-23 15:55] MED LIST changes: +MEDROL DOSEPAK4 MG ORAL; +MUPIROCIN22 GM TOPIC; +SPIRONOLACTONE25 MG ORAL
--- NOTE | 2019-03-23 16:10 | NUR ---
ED Nurse Note: Pt ambulated into ER c/o SOB onset three days ago. Pt also c/o cough, runny nose and body aches for the past three days. Pt denies any chest pain at this time. Pt has hx of stroke, HTN, COPD and CHF. Pt is breathing normal, unlabored and speaking in full sentences. Pt is alert and oriented x4, ambulatory with steady gait. Pt connected to furnace builder and placed in hospital gown. Will continue to monitor. Safety measures in place.
[2019-03-23 16:20] VITALS: BP 160/91
--- NOTE | 2019-03-23 16:26 | Emergency Room Report ---
History of Present Illness General Chief Complaint: Upper Respiratory Illness Source: Patient Present Illness HPI Disclaimer: Please note that this report is being documented using [employer] technology. This can lead to erroneous entry secondary to incorrect interpretation by the dictating instrument. HPI: 68-year-old female with a history of COPD, CHF, CAD, hypertension, hyperlipidemia presents for evaluation of shortness of breath. Symptoms began 3 days ago. She notes worsening exertional dyspnea and a nonproductive cough. Denies fevers or chills. Also complains of some nasal congestion and a sore throat. Denies vomiting or diarrhea. Had some left-sided sharp nonradiating chest wall pain earlier today but not currently. Has been using her Lasix and denies any lower extreme any edema. Has been using her Symbicort but ran out of albuterol. PMH: COPD, CHF, CAD, hypertension, hyperlipidemia, obesity PSH: Eye surgery Allergies: Denies Social Hx: No longer smoking Allergies: Coded Allergies: NO KNOWN ALLERGIES (Verified Allergy, Unknown, 10/29/18) Patient History Last Menstrual Period: 20 yrs ago Nursing Documentation-PMH Past Medical History: No History, Except For Hx Cardiac Problems: Yes - CHF Hx Hypertension: Yes Hx Pacemaker: No Hx COPD: Yes Hx Diabetes: No Hx Cancer: No Hx Gastrointestinal Problems: No Hx Neurological Problems: No Hx Cerebrovascular Accident: Yes Hx Neurologic Surgery: No Review of Systems All Other Systems: negative except mentioned in HPI Physical Exam Vital Signs Date Time Temp Pulse Resp B/P (MAP) Pulse Ox O2 Delivery O2 Flow Rate FiO2 03/23/19 15:59 98.2 85 18 147/85 (105) 93 Room Air General: Awake and alert, no acute distress HEENT: NC/AT. EOMI. left eye has lateral deviation. Moist mucous membranes Neck: Supple, trachea midline Chest Wall: No tenderness, no deformity Cardiovascular: RRR. S1 and S2 normal. No murmur appreciated Resp: No respiratory distress. Normal work of breathing. No cough, wheezing or crackles appreciated Abdomen: Abdomen is soft, nondistended. Obese abdomen. Nontender Skin: Intact. No abrasions, laceration or rash over the exposed skin MSK: Normal tone and bulk. Moving all extremities. No obvious deformity. Neuro: Awake and alert. Mentating appropriately. Procedures Critical Care Time Critical Care Time Total critical care time: Approximately 45 minutes Due to a high probability of clinically significant, life threatening deterioration, the patient required the highest level of preparedness to intervene emergently and I personally spent this critical care time directly and personally managing the patient. This critical care time included obtaining a history, examining the patient, pulse oximetry, ordering and reviewing studies , ordering treatments, evaluating response to treatment and updating management plan as needed, frequent reassessment and discussion with other providers as well as arranging for ultimate disposition. This critical to care time was performed to assess and manage the high probability of life-threatening deterioration that could result in multiorgan failure. This critical care time is separate from the separately billable procedures and treating other patients. Medical Decision Making Diagnostic Impression: Primary Impression: CHF exacerbation Additional Impressions: Acute kidney injury SVT (supraventricular tachycardia) ER Course 68-year-old female history of COPD and CHF presents for evaluate 3 days exertional dyspnea nonproductive cough with URI symptoms. Differential includes is not limited to URI, influenza,, bronchitis, ACS, angina, COPD exacerbation, CHF exacerbation. We will start a broad metabolic, infectious and cardiac work-up. Patient will have an EKG and a chest x-ray. No clinical signs of fluid overload at this time. She is in no respiratory distress, saturating 93% on room air with normal work of breathing and no wheezing or crackles appreciated on exam. Laboratory Tests Test 03/23/19 16:26 03/23/19 16:28 White Blood Count 12.4 K/UL (4.8-10.8) H Red Blood Count 4.15 M/UL (4.20-5.40) L Hemoglobin 12.9 G/DL (12.0-16.0) Hematocrit 37.1 % (37.0-47.0) Mean Corpuscular Volume 89 FL (80-99) Mean Corpuscular Hemoglobin 31.1 PG (27.0-31.0) H Mean Corpuscular Hemoglobin Concent 34.8 G/DL (32.0-36.0) Red Cell Distribution Width 11.7 % (11.6-14.8) Platelet Count 227 K/UL (150-450) Mean Platelet Volume 6.0 FL (6.5-10.1) L Neutrophils (%) (Auto) 75.7 % (45.0-75.0) H Lymphocytes (%) (Auto) 18.0 % (20.0-45.0) L Monocytes (%) (Auto) 4.3 % (1.0-10.0) Eosinophils (%) (Auto) 1.2 % (0.0-3.0) Basophils (%) (Auto) 0.8 % (0.0-2.0) Prothrombin Time 9.7 SEC (9.30-11.50) Prothrombin Time INR 0.9 (0.9-1.1) PTT 29 SEC (23-33) Sodium Level 143 MMOL/L (136-145) Potassium Level 4.3 MMOL/L (3.5-5.1) Chloride Level 107 MMOL/L (98-107) Carbon Dioxide Level 29 MMOL/L (21-32) Anion Gap 7 mmol/L (5-15) Blood Urea Nitrogen 24 mg/dL (7-18) H Creatinine 1.5 MG/DL (0.55-1.30) H Estimate Glomerular Filtration Rate 42.1 mL/min (>60) Glucose Level 119 MG/DL (74-106) H Calcium Level 8.4 MG/DL (8.5-10.1) L Total Bilirubin 0.7 MG/DL (0.2-1.0) Aspartate Amino Transferase (AST) 26 U/L (15-37) Alanine Aminotransferase (ALT) 24 U/L (12-78) Alkaline Phosphatase 116 U/L (46-116) Troponin I 0.003 ng/mL (0.000-0.056) Pro-B-Type Natriuretic Peptide 4312 pg/mL (0-125) H Total Protein 8.0 G/DL (6.4-8.2) Albumin 3.4 G/DL (3.4-5.0) Globulin 4.6 g/dL Albumin/Globulin Ratio 0.7 (1.0-2.7) L Arterial Blood pH 7.427 (7.350-7.450) Arterial Blood Partial Pressure CO2 36.9 mmHg (35.0-45.0) Arterial Blood Partial Pressure O2 69.9 mmHg (75.0-100.0) L Arterial Blood HCO3 23.8 mmol/L (22.0-26.0) Arterial Blood Oxygen Saturation 92.8 % (95-100) L Arterial Blood Base Excess -0.3 (-2-2) Royce Test Positive Microbiology Date/Time Source Procedure Growth Status 03/23/19 16:26 Nasal Nares - Final Complete 03/23/19 16:26 Nasal Nares - Final Complete EKG Diagnostic Results EKG Time: 16:37 Rate: normal Rhythm: NSR ST Segments: no acute changes Other Impression Sinus rhythm, normal axis, prolonged QTC at [address] segment changes. PA Scribe Text EKG #2: 1700 Tachycardia into the 130s, regular rhythm. No discernible P waves. Likely supraventricular tachycardia. EKG #3: 1723 Status post 6 mill grams adenosine Sinus rhythm, rate in the 90s, prolonged QTC at 497 ms, no ischemic changes EKG #4: 1751 Tachycardic, rate 130s. No discernible P waves. SVT. Prolonged QTC at 539 ms EKG #5: 1800 Status post 12 mg adenosine Sinus rhythm, left axis deviation, prolonged QTC at 502 ms, no ST segment changes. Rhythm Strip Diag. Results Rhythm Strip Time: 16:37 EP Interpretation: yes Rate: 90s Rhythm: no PVC's, no ectopy Chest X-Ray Diagnostic Results Chest X-Ray Diagnostic Results : Chest X-Ray Ordered: Yes # of Views/Limited/Complete: 1 View Indication: Chest Pain PA Xray: Interpretation reviewed Interpretation: no consolidation, no effusion, no pneumothorax, no acute cardiopulmonary disease Impression: No acute disease Electronically Signed by: Electronically signed by Dr. Amauri Tellez Reevaluation Time: 17:39 Last Vital Signs Date Time Temp Pulse Resp B/P (MAP) Pulse Ox O2 Delivery O2 Flow Rate FiO2 03/23/19 15:59 98.2 85 18 147/85 (105) 93 Room Air Reevaluation Impression Patient's initial EKG showed normal sinus rhythm with a prolonged QTC though was nonischemic. Patient's heart rate increased into the 140s and EKG at that time showed she was in SVT. She was given 6 mg of adenosine and converted to a sinus rhythm. Labs show a negative troponin, elevated peptide at 4000 and mild bilateral pulmonary congestion without infiltrate suggestive of mild CHF exacerbation. Creatinine slightly elevated 1.5 with an elevated BNP and suggestive of acute kidney injury. She was given Lasix and aspirin. She is chest pain-free. Will be admitted to telemetry 1900 Patient again went into SVT with a heart rate in the 140s. Converted with 12 mg of adenosine to normal sinus rhythm. EKG remains nonischemic though QTC is elevated. Magnesium and phosphate are still pending. She will be admitted to stepdown unit as she had a transient dip in her blood pressures after receiving diltiazem. Pressures are returned to normal limits. Continues to deny chest pain. Disposition: ADMITTED INPATIENT Condition: Serious Amauri Tellez MD Mar 23, 2019 16:26
--- NOTE | 2019-03-23 16:29 | NUR ---
ED Nurse Note: x-ray at bedside.
--- NOTE | 2019-03-23 16:29 | NUR ---
ED Nurse Note: RT at bedside for ABGs.
[2019-03-23 16:37] LABS: BASOPHILS % (AUTO) 0.8 % (0.0-2.0); EOSINOPHILS % (AUTO) 1.2 % (0.0-3.0); HEMATOCRIT 37.1 % (37.0-47.0); HEMOGLOBIN 12.9 G/DL (12.0-16.0); MEAN CORPUSCULAR VOLUME 89 FL (80-99); MONOCYTES % (AUTO) 4.3 % (1.0-10.0); NEUTROPHILS % (AUTO) 75.7 % (45.0-75.0); PLATELET COUNT 227 K/UL (150-450); RED BLOOD COUNT 4.15 M/UL (4.20-5.40); RED CELL DISTRIBUTION WIDTH 11.7 % (11.6-14.8); WHITE BLOOD COUNT 12.4 K/UL (4.8-10.8)
[2019-03-23 16:47] LABS: INR 0.9 (0.9-1.1)
--- NOTE | 2019-03-23 16:55 | NUR ---
ED Nurse Note: ERMD enrique informed of pt elevated HR at 130 and BP of 166/84. Will continue to monitor and carry out ERMD orders.
--- NOTE | 2019-03-23 16:57 | Diagnostic Imaging Report ---
Indication: Shortness of breath Technique: One view of the chest Comparison: 10/30/2018 Findings: The heart is borderline enlarged. Lungs and pleural spaces are clear. Impression: Borderline cardiomegaly. No acute process
[2019-03-23 16:58] LABS: ANION GAP 7 mmol/L (5-15); BLOOD UREA NITROGEN 24 mg/dL (7-18); CALCIUM 8.4 MG/DL (8.5-10.1); CARBON DIOXIDE 29 MMOL/L (21-32); CHLORIDE 107 MMOL/L (98-107); CREATININE 1.5 MG/DL (0.55-1.30); POTASSIUM 4.3 MMOL/L (3.5-5.1); SODIUM 143 MMOL/L (136-145)
[2019-03-23] MEDS ORDERED: Aspirin Baby 81mg ORAL ONE (17:00)
[2019-03-23] MEDS ORDERED: Acetaminophen 500mg (ES) tab ORAL ONE (17:00)
[2019-03-23 17:08] LABS: ALANINE AMINOTRANSFERASE 24 U/L (12-78); ALBUMIN 3.4 G/DL (3.4-5.0); ALBUMIN/GLOBULIN RATIO 0.7 (1.0-2.7); ALKALINE PHOSPHATASE 116 U/L (46-116); ASPARTATE AMINO TRANSFERASE 26 U/L (15-37); BILIRUBIN,TOTAL 0.7 MG/DL (0.2-1.0)
[2019-03-23] MEDS ORDERED: Adenosine 6mg/2ml Inj IVP ONE ×2 (17:15)
--- NOTE | 2019-03-23 17:18 | NUR ---
ED Nurse Note: Per ERMD order 6mg IVP adenosine given flushed with 20cc NS. ERMD at bedside. pt toelrated well. PT converted from SVT to NSR. See rhythm strip.
[2019-03-23 17:27] VITALS: BP 164/95
--- NOTE | 2019-03-23 17:47 | NUR ---
ED Nurse Note: Pt HR 140, Vtach. ERMD notified. security installation sales technician at bedside for EKG.
--- NOTE | 2019-03-23 17:54 | NUR ---
ED Nurse Note: Per ERMD order, 12mg IVP adenosine given flushed with 20cc NS. ERMD at bedside. Pt converted from SVT to NSR. Pt tolerated well. Pt denies chest pain at this time. Will continue to monitor.
[2019-03-23 18:17] VITALS: BP 155/88
--- NOTE | 2019-03-23 18:32 | NUR ---
ED Nurse Note: ERMD notified of Pt heart rate 140 vtach. ERMD awaiting on lab results, no intervention at this time.
[2019-03-23 18:38] LABS: PHOSPHORUS 3.8 MG/DL (2.5-4.9)
[2019-03-23] MEDS ORDERED: dilTIAZem HCl 60mg tab ORAL ONE ×2 (19:00→19:45)
[2019-03-23] MEDS ORDERED: dilTIAZem HCl 25mg/5ml Inj ONE (19:14)
[2019-03-23] MEDS ORDERED: dilTIAZem HCl 25mg/5ml Inj IVP ONE (19:15)
--- NOTE | 2019-03-23 19:24 | NUR ---
HAND-OFF: Report given to Tiera BERTRAND and endorsed care.
[2019-03-23 21:00] VITALS: BP 95/65
[2019-03-23] MEDS ORDERED: Nitroglycerin Subl 0.4mg tab SL PRN (21:30)
[2019-03-23] MEDS ORDERED: LORazepam Inj 2mg/ml 1ml IV PRN (21:30)
[2019-03-23] MEDS ORDERED: Heparin 5000 units/ml inj IV SCH ×2 (21:30→22:15)
[2019-03-23] MEDS ORDERED: Digoxin 0.5mg/2ml Inj IVP SCH (21:30)
[2019-03-23] MEDS ORDERED: Albuterol/Ipratropium 3ml neb HHN PRN (21:30)
[2019-03-23] MEDS ORDERED: Morphine Sulfate 2mg/ml Inj(IV/IM USE ONLY) IVP PRN (21:30)
[2019-03-23] MEDS ORDERED: dilTIAZem HCl 25mg/5ml Inj IV PRN (21:45)
[2019-03-23] MEDS ORDERED: Zoysn 3.37gm in NS 100ML IVPB SCH (22:00)
[2019-03-23] MEDS ORDERED: Piperacillin/Tazobactam 2.25 GM in D5W 55 ML IV SCH (22:00)
--- NOTE | 2019-03-23 22:00 | NUR ---
TRANSFER TO FLOOR: Patient transferred to as ordered, per Dr Sandhu. Report given to JERZY Hirsch. Belongings and medications given to . Family and or S/O informed of transfer.
[2019-03-23 22:05] VITALS: BP 113/67
--- NOTE | 2019-03-23 22:05 | NUR ---
NURSE NOTES: Received report from Tiera Rn, pt. in bed awake, A/O x's 4-able to make needs known, pt. transferred from ER. bed in lowest position and call light within easy reach, bed alarm on, side rails up x's3 and safety brakes engaged, pt. oriented to room, and pt. teaching done, pt. appears to be sating well on room air at 96%- no distress noted. Vital signs taken. Full body assessment done - skin intact. pt. has LFA 20G IV intact and patent, pt. aware to ask for assist when using bed turner, safety measures continued, will continue with plan of care.
--- NOTE | 2019-03-23 22:10 | NUR ---
NURSE NOTES: Spoke with Pharmacist made aware patients weight is 100.4 Kg okay to start heparin drip as is...and insert new weight for next ptt.
[2019-03-23] MEDS: Heparin 25,000u/D5W 500ml 500 ML IV SCH (22:37)
[2019-03-23] MEDS: Solu-MEDROL 125mg Inj IV SCH (23:23)
[2019-03-23 23:28] LABS: CREATINE KINASE 149 U/L (26-308)
[2019-03-24] VITALS: BP 131/72
[2019-03-24] MEDS: Zoysn 3.37gm in NS 100ML IVPB SCH ×2 (00:48→08:50)
[2019-03-24] MEDS: Promethazine/Codeine 5ml UD ORAL PRN ×3 (03:58→21:04)
[2019-03-24 04:00] VITALS: BP 124/79
[2019-03-24] MEDS: Solu-MEDROL 125mg Inj IV SCH ×4 (05:32→23:19)
[2019-03-24] MEDS: Levothyroxine 25mcg tab ORAL SCH (05:32)
--- NOTE | 2019-03-24 06:00 | NUR ---
NURSE NOTES: kg [facility] from [facility] pt. has PTT in therapeutic range - so to order PTT for 03/25/19 at 0400 timed- orders carried out.
--- NOTE | 2019-03-24 07:04 | NUR ---
HAND-OFF: Report given to Sruthi RN, pt. remains stable and no signs of distress noted- bed side report done. Heparin log signed.
--- NOTE | 2019-03-24 07:05 | NUR ---
NURSE NOTES: Received report from JERZY Harley. Observed patient in bed, awake, alert, able to make needs known; eating breakfast. On room air, no acute distress noted. surveillance system monitor shows SR with HR 95. IV on left FA intact and patent with Heparin infusing at prescribed rate per protocol. No c/o pain/discomfort at this time. Safety precautions in place, bed locked, alarmed, and in lowest position, side rails up x2, and call light left within reach. Instructed to call for assistance, patient verbalized understanding. Will continue plan of care and will continue to monitor patient.
[2019-03-24 08:00] VITALS: BP 144/80
[2019-03-24] MEDS: Theophylline ER 100mg ORAL SCH ×2 (08:46→21:02)
[2019-03-24] MEDS: Digoxin 0.5mg/2ml Inj IVP SCH (08:46)
[2019-03-24] MEDS: Aspirin EC 81mg tab ORAL SCH (08:46)
[2019-03-24] MEDS ORDERED: Carvedilol 6.25mg Tab ORAL SCH (09:00)
[2019-03-24] MEDS ORDERED: Heparin 5000 units/ml inj SUBQ SCH (09:00)
[2019-03-24] MEDS: Heparin 25,000u/D5W 500ml 500 ML IV SCH (11:46)
--- NOTE | 2019-03-24 11:52 | History & Physical ---
History and Physical History & Physicial Dictated for Int Med-Dr Sandhu no. [id number]. Antonio Anglin MD Mar 24, 2019 11:52
[2019-03-24 12:00] VITALS: BP 167/88
--- NOTE | 2019-03-24 12:35 | Consultation ---
History of Present Illness General Date patient seen: Mar 24, 2019 Chief Complaint: Dyspnea/Respdistress Present Illness HPI 67-year-old female, former smoker with a history of COPD, CHF, EF of 30%- 35%, anterior wall hypokinesia, hypertension, prior CVA, and TIA presenting with two to three days of shortness of breath, and a mild nonproductive cough. She denied any fevers, chills, chest pain, headaches, dizziness, nausea, vomiting, hemoptysis, weight loss, diarrhea, constipation, or other complaints. Her CXR only showed cardiomegaly without CHF. She had SVT in ER and converted to sinus after receiving Adenosine IV. Later on she developed SVT again. She received a dose of IV lasix in ER and admitted to [facility] for further management. Allergies: Coded Allergies: NO KNOWN ALLERGIES (Verified Allergy, Unknown, 10/29/18) Medication History Scheduled Aspirin* (Aspir 81*), 81 MG ORAL DAILY, (Reported) Brimonidine Tartrate (Alphagan P), 5 ML OP BID, (Reported) Carvedilol* (Carvedilol*), 6.25 MG ORAL EVERY 12 HOURS, (Reported) Clopidogrel Bisulfate* (Plavix*), 75 MG ORAL DAILY Furosemide* (Lasix*), 40 MG ORAL DAILY, (Reported) Levothyroxine Sodium* (Synthroid*), 25 MCG ORAL DAILY, (Reported) Lisinopril* (Prinivil*), 20 MG ORAL Q12HR Methylprednisolone (Methylprednisolone*), 4 MG ORAL DIRECTED Spironolactone* (Aldactone*), 25 MG ORAL DAILY Tizanidine Hcl (Tizanidine Hcl), 2 MG PO EVERY 12 HOURS, (Reported) Vitamin D (Vitamin D3), 400 UNITS ORAL DAILY, (Reported) Scheduled PRN Budesonide/Formoterol Fumarate (Symbicort 160-4.5 Mcg Inhaler), 2 PUFF IH ONCE DAILY PRN for Shortness of Breath, (Reported) Mupirocin* (Mupirocin*), 1 APPLIC TOPIC ONCE DAILY PRN for Itching, (Reported) Patient History Healthcare decision maker Resuscitation status Full Code Advanced Directive on File No Past Medical/Surgical History Past Medical/Surgical History: (1) Shingles (2) CAD (coronary artery disease) (3) History of CVA (cerebrovascular accident) (4) EF 35% (5) COPD (chronic obstructive pulmonary disease) (6) Hypothyroidism (7) HTN (hypertension) (8) SVT (supraventricular tachycardia) (9) Hemiparesis affecting right side as late effect of cerebrovascular accident (CVA) Review of Systems All Other Systems: negative except mentioned in HPI Physical Exam General Appearance: WD/WN Lines, tubes and drains: peripheral HEENT: normocephalic, atraumatic Neck: non-tender, normal alignment Respiratory/Chest: chest wall non-tender, lungs clear Cardiovascular/Chest: normal peripheral pulses, normal rate Abdomen: normal bowel sounds, non tender Genitourinary/Rectal: normal genital exam, heme negative stool Extremities: normal range of motion Skin Exam: normal pigmentation Neurologic: sales lead II-XII grossly normal Last 24 Hour Vital Signs Date Time Temp Pulse Resp B/P (MAP) Pulse Ox O2 Delivery O2 Flow Rate FiO2 03/24/19 12:00 Room Air 03/24/19 09:24 81 20 93 Room Air 21 03/24/19 08:46 97 03/24/19 08:46 97 144/80 03/24/19 08:00 98.1 97 15 144/80 (101) 100 03/24/19 08:00 Room Air 03/24/19 07:48 87 03/24/19 04:00 Room Air 03/24/19 04:00 97.5 82 20 124/79 (94) 94 03/24/19 03:15 81 03/24/19 00:00 Room Air 03/24/19 00:00 98.9 86 20 131/72 (91) 95 03/23/19 23:45 89 03/23/19 23:09 Room Air 03/23/19 22:40 93 03/23/19 22:23 96 03/23/19 22:05 97.7 93 24 113/67 (82) 96 03/23/19 22:00 98.1 89 23 91/71 98 Room Air 03/23/19 21:00 98.6 130 23 95/65 94 Room Air 03/23/19 19:54 140 91/71 03/23/19 19:15 140 139/95 03/23/19 18:17 98.1 89 23 155/88 98 Room Air 03/23/19 18:16 98.1 03/23/19 17:59 141 03/23/19 17:27 91 20 164/95 97 Room Air 03/23/19 17:09 135 03/23/19 16:20 99.7 94 24 160/91 97 Room Air 03/23/19 16:20 94 Room Air 03/23/19 15:59 98.2 85 18 147/85 (105) 93 Room Air Intake and Output 03/23/19 03/24/19 18:59 06:59 Intake Total 413.399 ml Balance 413.399 ml Intake IV Total 413.399 ml # Voids 4 Laboratory Tests Test 03/23/19 16:26 03/23/19 16:28 03/24/19 04:40 White Blood Count 12.4 K/UL (4.8-10.8) H Red Blood Count 4.15 M/UL (4.20-5.40) L Hemoglobin 12.9 G/DL (12.0-16.0) Hematocrit 37.1 % (37.0-47.0) Mean Corpuscular Volume 89 FL (80-99) Mean Corpuscular Hemoglobin 31.1 PG (27.0-31.0) H Mean Corpuscular Hemoglobin Concent 34.8 G/DL (32.0-36.0) Red Cell Distribution Width 11.7 % (11.6-14.8) Platelet Count 227 K/UL (150-450) Mean Platelet Volume 6.0 FL (6.5-10.1) L Neutrophils (%) (Auto) 75.7 % (45.0-75.0) H Lymphocytes (%) (Auto) 18.0 % (20.0-45.0) L Monocytes (%) (Auto) 4.3 % (1.0-10.0) Eosinophils (%) (Auto) 1.2 % (0.0-3.0) Basophils (%) (Auto) 0.8 % (0.0-2.0) Prothrombin Time 9.7 SEC (9.30-11.50) Prothromb Time International Ratio 0.9 (0.9-1.1) Activated Partial Thromboplast Time 29 SEC (23-33) 88 SEC (23-33) H Sodium Level 143 MMOL/L (136-145) Potassium Level 4.3 MMOL/L (3.5-5.1) Chloride Level 107 MMOL/L (98-107) Carbon Dioxide Level 29 MMOL/L (21-32) Anion Gap 7 mmol/L (5-15) Blood Urea Nitrogen 24 mg/dL (7-18) H Creatinine 1.5 MG/DL (0.55-1.30) H Estimat Glomerular Filtration Rate 42.1 mL/min (>60) Glucose Level 119 MG/DL (74-106) H Uric Acid 7.1 MG/DL (2.6-7.2) Calcium Level 8.4 MG/DL (8.5-10.1) L Phosphorus Level 3.8 MG/DL (2.5-4.9) Magnesium Level 1.9 MG/DL (1.8-2.4) Total Bilirubin 0.7 MG/DL (0.2-1.0) Aspartate Amino Transf (AST/SGOT) 26 U/L (15-37) Alanine Aminotransferase (ALT/SGPT) 24 U/L (12-78) Alkaline Phosphatase 116 U/L (46-116) Total Creatine Kinase 149 U/L (26-308) Troponin I 0.003 ng/mL (0.000-0.056) Pro-B-Type Natriuretic Peptide 4312 pg/mL (0-125) H Total Protein 8.0 G/DL (6.4-8.2) Albumin 3.4 G/DL (3.4-5.0) Globulin 4.6 g/dL Albumin/Globulin Ratio 0.7 (1.0-2.7) L Arterial Blood pH 7.427 (7.350-7.450) Arterial Blood Partial Pressure CO2 36.9 mmHg (35.0-45.0) Arterial Blood Partial Pressure O2 69.9 mmHg (75.0-100.0) L Arterial Blood HCO3 23.8 mmol/L (22.0-26.0) Arterial Blood Oxygen Saturation 92.8 % (95-100) L Arterial Blood Base Excess -0.3 (-2-2) Royce Test Positive Microbiology Date/Time Source Procedure Growth Status 03/23/19 16:26 Nasal Nares - Final Complete 03/23/19 16:26 Nasal Nares - Final Complete Height (Feet): 5 Height (Inches): 5.00 Weight (Pounds): 220 Medications Current Medications Medications (Trade) Dose Ordered Sig/Marline Route PRN Reason Start Time Stop Time Status Last Admin Dose Admin Albuterol/ Ipratropium (Albuterol/ Ipratropium) 3 ml Q4H PRN HHN dyspnea 03/23/19 21:30 03/28/19 21:29 Aspirin (Ecotrin) 81 mg DAILY ORAL 03/24/19 09:00 04/23/19 08:59 03/24/19 08:46 Carvedilol (Coreg) 6.25 mg EVERY 12 HOURS ORAL 03/24/19 09:00 04/23/19 08:59 03/24/19 08:46 Clopidogrel Bisulfate (Plavix) 75 mg DAILY ORAL 03/24/19 09:00 04/23/19 08:59 03/24/19 08:46 Dextrose (Dextrose 50%) 25 ml Q30M PRN IV Hypoglycemia 03/23/19 21:30 04/22/19 21:29 Dextrose (Dextrose 50%) 50 ml Q30M PRN IV Hypoglycemia 03/23/19 21:30 04/22/19 21:29 Digoxin (Lanoxin) 0.25 mg DAILY IVP 03/24/19 09:00 04/23/19 08:59 03/24/19 08:46 Diltiazem HCl (Cardizem) 10 mg Q1H PRN IV heart rate more than 120, 03/23/19 21:45 04/22/19 21:44 Heparin Sodium/ Dextrose 500 ml @ 35.924 mls/ hr ADJUST PER PROTOCOL IV 03/23/19 21:30 04/22/19 21:29 03/24/19 11:46 Levothyroxine Sodium (Synthroid) 25 mcg ACBREAKFAST ORAL 03/24/19 06:30 04/23/19 06:29 03/24/19 05:32 Lorazepam (Ativan 2mg/ml 1ml) 0.5 mg Q4H PRN IV For Anxiety 03/23/19 21:30 03/30/19 21:29 Methylprednisolone Sodium Succinate (Solu-MEDROL) 60 mg EVERY 6 HOURS IV 03/24/19 00:00 04/23/19 00:00 03/24/19 12:17 Morphine Sulfate (Morphine Sulfate) 2 mg Q4H PRN IVP severe pain 7-10 03/23/19 21:30 03/30/19 21:29 Nitroglycerin (Ntg) 0.4 mg Q5M X 3 DOSES PRN SL Prn Chest Pain 03/23/19 21:30 04/22/19 21:29 Ondansetron HCl (Zofran) 4 mg Q6H PRN IVP Nausea & Vomiting 03/23/19 21:30 04/22/19 21:29 Promethazine HCl/ Codeine (Phenergan with Codeine) 5 ml Q6H PRN ORAL cough 03/23/19 21:30 04/22/19 21:29 03/24/19 10:51 Temazepam (Restoril) 15 mg HSPRN PRN ORAL Insomnia 03/23/19 21:30 03/30/19 21:29 Theophylline (Domenic-Dur) 100 mg EVERY 12 HOURS ORAL 03/24/19 09:00 04/23/19 08:59 03/24/19 08:46 Assessment/Plan Problem List: (1) Acute bronchitis ICD Codes: J20.9 - Acute bronchitis,unspecified SNOMED: 77604346 (2) COPD (chronic obstructive pulmonary disease) ICD Codes: J44.9 - Chronic obstructive pulmonary disease, unspecified SNOMED: 17839349 (3) SVT (supraventricular tachycardia) ICD Codes: I47.1 - Supraventricular tachycardia SNOMED: 8284439, 9891573 (4) Acute kidney injury ICD Codes: N17.9 - Acute kidney failure, unspecified SNOMED: 70910724, 2882388 (5) Hemiparesis affecting right side as late effect of cerebrovascular accident (CVA) ICD Codes: I69.351 - Hemiplegia and hemiparesis following cerebral infarction affecting right dominant side SNOMED: 476970303 (6) Hypothyroidism ICD Codes: E03.9 - Hypothyroidism, unspecified SNOMED: 11279175 (7) HTN (hypertension) ICD Codes: I10 - Essential (primary) hypertension SNOMED: 42496787 Assessment/Plan: respiratory treatment iv steroids (short course) check sputum iv abx titrate fio2 to sat of 92 follow up renal parameters on heparin drip b/o of paroxysmal SVT Halina Hameed MD Mar 24, 2019 12:35
--- NOTE | 2019-03-24 13:00 | Diagnostic Imaging Report ---
Indication:Elevated Bun and Creatinine. Technique: Grayscale and duplex Doppler imaging of the kidneys performed. Comparison: None Findings: The size, contour, and echogenicity of both kidneys are within normal limits. There are tiny bilateral renal cysts. There is no hydronephrosis.. The right kidney measures 9.4 cm. in length. The left kidney measures 10.1 cm. in length. The IVC is patent. Urinary bladder is unremarkable. IMPRESSION: Negative ultrasound the kidneys. Tiny bilateral renal cysts
[2019-03-24 16:00] VITALS: BP 124/80
--- NOTE | 2019-03-24 16:15 | History and Physical Report ---
DATE OF ADMISSION: 03/23/2019 CHIEF COMPLAINT: The patient is a 68-year-old female who presents with a chief complaint of shortness of breath. HISTORY OF PRESENT ILLNESS: The patient was admitted to [facility] in October of 2018 with similar symptoms. Please see history and physical and discharge summary dictated at that time. The patient states history of present illness began approximately 3 days prior to admission. The patient began to experience shortness of breath. The patient had a nonproductive cough. The patient presented to [place] emergency room. The patient was found to have BNP elevated to 4312. The patient was admitted for shortness of breath and congestive heart failure versus chronic obstructive pulmonary disease, acute exacerbation. REVIEW OF SYSTEMS: CONSTITUTIONAL: The patient denies weight loss or weight gain. The patient denies fevers or chills. HEENT: The patient denies ear or throat pain. The patient denies headache. CARDIOVASCULAR: The patient denies palpitations or chest pain. CHEST: The patient complains of shortness of breath as above. The patient denies wheezes. ABDOMEN: The patient denies nausea, vomiting, diarrhea, or constipation. GENITOURINARY: The patient denies dysuria or increased frequency of urination. NEUROMUSCULAR: The patient denies seizures or generalized weakness. PAST MEDICAL HISTORY: Significant for: 1. Congestive heart failure. 2. Cardiomyopathy with ejection fraction of 30% to 35%. 3. History of cerebrovascular accident in 2008. 4. Hypertension. 5. Right hemiparesis. 6. Coronary artery disease. 7. Hypothyroidism. 8. Hypercholesterolemia. PAST SURGICAL HISTORY: The patient denies. CURRENT MEDICATIONS: 1. Aspirin 81 mg one tablet p.o. daily. 2. Alphagan one drop to both eyes twice daily. 3. Symbicort 160/4.5 two puffs p.o. daily. 4. Carvedilol 6.25 mg p.o. twice daily. 5. Plavix 75 mg p.o. daily. 6. Lasix 40 mg p.o. daily. 7. Levothyroxine 25 mcg p.o. daily. 8. Lisinopril 20 mg p.o. twice daily. 9. Aldactone 25 mg p.o. daily. 10. Tizanidine 2 mg p.o. twice daily. 11. Vitamin D3 400 units p.o. daily. 12. Albuterol metered-dose inhaler two puffs p.o. q.i.d. p.r.n.; however, patient has been out of her albuterol for several weeks. ALLERGIES: No known drug allergies. SOCIAL HISTORY: The patient is single and lives with her adult daughter. The patient denies tobacco use having quit in April 2017. The patient admits to occasional alcohol use. PHYSICAL EXAMINATION: VITAL SIGNS: Temperature 98.2, respirations 18, pulse 85, blood pressure 147/85, pulse ox 93% on room air. GENERAL: The patient is well-developed and well-nourished obese female, in moderate respiratory distress. HEENT: Eyes, pupils are equal and responsive to light and accommodation. Extraocular movements are intact. NECK: Supple without lymphadenopathy. CHEST: Few wheezes in the bilateral bases with crackles at bilateral bases. CARDIOVASCULAR: Regular rhythm and rate. S1 and S2 normal without murmurs, rubs, or gallops. ABDOMEN: Soft, nontender, and nondistended. Positive bowel sounds. No hepatosplenomegaly. Currently, no rebound or guarding noted. EXTREMITIES: Negative for clubbing, cyanosis, edema. RECTAL/GENITAL: Not performed. NEUROLOGIC: Cranial nerves II through XII are grossly intact without focal deficits. Motor strength is 5/5 bilaterally. Deep tendon reflexes are 2+ plantar. LABORATORY STUDIES: WBC 12.4, hemoglobin 12.9, hematocrit 37.1, platelets 227,000. Sodium 141, potassium 4.3, chloride 107, CO2 29, BUN 24, creatinine 1.5, glucose 119. BNP elevated at 5312. Troponin 0.003. Chest x-ray was reported as borderline cardiomegaly however no acute disease. ASSESSMENT: This is a 68-year-old female. 1. Shortness of breath. 2. Chronic obstructive pulmonary disease, acute exacerbation. 3. Congestive heart failure, acute on chronic. 4. Cerebrovascular disease. 5. Coronary artery disease. 6. Hypertension. 7. Right hemiparesis. 8. Cardiomyopathy. 9. Hypothyroidism. 10. Hypercholesterolemia. TREATMENT: 1. Shortness of breath/chronic obstructive pulmonary disease. A Pulmonary consultation has been obtained with Dr. Halina Hameed. We will follow recommendation of Pulmonary. The patient is currently tolerating nasal cannula. Continue DuoNebs every four hours as needed. The patient has also been started on Domenic-Dur. The patient has been started on intravenous Zosyn for possible bronchitis. 2. Congestive heart failure. Initial BNP was elevated to 4312. A Cardiology consultation has been obtained with Dr. Be. Continue Lasix as above. 3. Cerebrovascular disease/right hemiparesis. 4. History of coronary artery disease. 5. Hypertension. Continue Coreg and lisinopril as above. 6. Cardiomyopathy with ejection fraction of 30 to 35%. 7. Hypothyroidism. Continue Synthroid as above. 8. Hypercholesterolemia. Antonio Anglin M.D. DR: Juan JOB#: [id number] CC:
--- NOTE | 2019-03-24 16:18 | Cardiology Report ---
APPROVED REPORT EKG Measurement Heart [id number] Accelerated Junctional rhythm with retrograde conduction Left axis deviation Nonspecific T wave abnormality Abnormal ECG
--- NOTE | 2019-03-24 16:19 | Cardiology Report ---
APPROVED REPORT EKG Measurement Heart [id number] Normal sinus rhythm Left axis deviation Prolonged QT Abnormal ECG
--- NOTE | 2019-03-24 19:01 | NUR ---
HAND-OFF: Report given to JERZY Coe. Patient remains in stable condition.
--- NOTE | 2019-03-24 19:05 | NUR ---
NURSE NOTES: Report received from JERZY Negro. Observed pt lying in the bed, awake, denies any pain at this time, A/O x4. SR on hot metal charger. On room air with no sob. L FA 20G running hep drip, 18U/kg/hr. L FA 22G, TKO. Bed in the lowest position. Call light within reach. Will continue to monitor.
[2019-03-24 19:08] LABS: APPEARANCE,URINE SLIGHTLY CLOUDY; BILIRUBIN, URINE NEGATIVE (NEGATIVE); GLUCOSE, URINE (UA) 2+ (NEGATIVE); KETONES,URINE 1+ (NEGATIVE); LEUKOCYTE ESTERASE ,URINE 1+ (NEGATIVE); NITRITE,URINE NEGATIVE (NEGATIVE); PH,URINE 5 (4.5-8.0); PROTEIN,URINE 2+ (NEGATIVE); UROBILINOGEN,URINE NORMAL MG/DL (0.0-1.0)
[2019-03-24 19:11] LABS: COLOR,URINE YELLOW
[2019-03-24 20:00] VITALS: BP 153/89
--- NOTE | 2019-03-24 20:04 | Cardiology Progress Note ---
Assessment/Plan Assessment/Plan avrt? cm chf copd dc coreg stat on torlol xl for cm and tachy venous duplex diuretic acei [id number] Objective Last 24 Hour Vital Signs Date Time Temp Pulse Resp B/P (MAP) Pulse Ox O2 Delivery O2 Flow Rate FiO2 03/24/19 16:00 Room Air 03/24/19 16:00 98.8 72 15 124/80 (95) 100 03/24/19 15:22 71 03/24/19 12:00 Room Air 03/24/19 12:00 98.7 107 15 167/88 (114) 100 03/24/19 11:26 77 03/24/19 09:24 81 20 93 Room Air 21 03/24/19 08:46 97 03/24/19 08:46 97 144/80 03/24/19 08:00 98.1 97 15 144/80 (101) 100 03/24/19 08:00 Room Air 03/24/19 07:48 87 03/24/19 04:00 Room Air 03/24/19 04:00 97.5 82 20 124/79 (94) 94 03/24/19 03:15 81 03/24/19 00:00 Room Air 03/24/19 00:00 98.9 86 20 131/72 (91) 95 03/23/19 23:45 89 03/23/19 23:09 Room Air 03/23/19 22:40 93 03/23/19 22:23 96 03/23/19 22:05 97.7 93 24 113/67 (82) 96 03/23/19 22:00 98.1 89 23 91/71 98 Room Air 03/23/19 21:00 98.6 130 23 95/65 94 Room Air Intake and Output 03/23/19 03/24/19 19:00 07:00 Intake Total 453.324 ml Balance 453.324 ml IV Total 453.324 ml # Voids 4 Laboratory Tests Test 03/24/19 04:40 Activated Partial Thromboplast Time 88 SEC (23-33) H Microbiology Date/Time Source Procedure Growth Status 03/23/19 16:26 Nasal Nares - Final Complete 03/23/19 16:26 Nasal Nares - Final Complete Juan Be MD Mar 24, 2019 20:04
[2019-03-24] MEDS ORDERED: RHOPRESSA2.5 ML OP (20:17)
[2019-03-24] MEDS ORDERED: VITAMIN D31000 UNI4 PO (20:19)
[2019-03-24] MEDS ORDERED: ACETAMINOPHEN325 M1 ORAL (20:21)
[2019-03-24] MEDS ORDERED: ATORVASTATIN CA10 MG ORAL (20:22)
[2019-03-24] MEDS: Lisinopril 20mg tab ORAL SCH (21:02)
[2019-03-25] VITALS: BP 155/89
--- NOTE | 2019-03-25 | NUR ---
NURSE NOTES: Observed pt sleeping in the bed. SR on satellite project site monitor. No acute distress noted at this time.
[2019-03-25] MEDS: Heparin 25,000u/D5W 500ml 500 ML IV SCH ×3 (01:47→18:02)
--- NOTE | 2019-03-25 03:15 | Consultation ---
DATE OF CONSULTATION: 03/24/2019 CARDIOLOGY CONSULTATION CONSULTING PHYSICIAN: Juan Be M.D. REFERRING PHYSICIAN: 1. Antonio Anglin M.D. 2. Halina Hameed M.D. REASON FOR REFERRAL: Tachycardia and congestive heart failure. HISTORY OF PRESENT ILLNESS: This is a 68-year-old female, who is known to me from prior evaluation back in October of 2018. The patient presented to the hospital because of shortness of breath known for about 3 or 4 days, orthopnea, PND, dyspnea on exertion, also coughing and wheezing, came to the emergency room because of those complaints. She was noted to be tachycardic at 134, felt to be SVT. Adenosine given and converted. She had recurrence of the tachycardia, was given more adenosine, converted again to what appeared to be sinus. She denies any palpitations. PAST MEDICAL HISTORY: Positive history of congestive heart failure with recurrent exacerbations, history of hypertension, COPD, cardiomyopathy with ejection fraction of 30% to 35%, global hypokinesis, questionable tiny reversible defect in the apex, history of CVA, right-sided hemiparesis, Parkinson's, hyperlipidemia, hypothyroidism. ALLERGIES: She is allergic to morphine, that cause her to become nauseated. SOCIAL HISTORY: She quit smoking 2 years ago. Does not drink alcoholic beverages. No drug use. REVIEW OF SYSTEMS: GASTROINTESTINAL: She has constipation. GENITOURINARY: Negative. PULMONARY: Positive cough, congestion, and wheezing. CONSTITUTIONAL: No fevers, chills, or night sweats. PHYSICAL EXAMINATION: GENERAL: Shows to be an elderly female, in no respiratory distress. Strabismus noted. LUNGS: Appear to be clear. CARDIAC: Regular rhythm. No heaves or thrills noted. ABDOMEN: Soft, nontender. Positive bowel sounds. EXTREMITIES: There is no significant edema. NEUROLOGICAL: She is awake, alert, responsive. LABORATORY AND DIAGNOSTIC DATA: White count 12.4, hemoglobin 12.9, and platelet count of 227. Blood gases, pH is 7.4, pCO2 37, pO2 of 70, bicarbonate 24. Sodium is 143, potassium 4.3, chloride 107, bicarb 29, BUN of 24, creatinine 1.5, and glucose of 119. Calcium is 8.4. Uric acid 7.1. Magnesium 1.9. Phosphorus of 3.8. Troponin 0.03. ProBNP was 4312, she has been as low as 481 and as high as 6500. Total CK of 149 and PTT of 88. Imaging, chest x-ray is fairly unremarkable. EKG reviewed what appears to be possible ectopic atrial tachycardia, which seemed to have responded to adenosine indicating history of ventricular tachycardia that recurred. ASSESSMENT AND PLAN: 1. Supraventricular tachycardia, possible AV reentry tachycardia, responded to adenosine. 2. Cardiomyopathy. 3. Congestive heart failure. 4. COPD. This patient was seen in cardiac consultation. The patient should be continued on a course of diuretics. She should be on some beta-blockers if possible for prevention of supraventricular tachycardia from recurring. It is possible that the tachycardia was congestive heart failure. I would discontinue the use of Coreg for the time being and use stronger beta-blocking agent such as metoprolol and Toprol-XL for the time being. Her other medications should be continued with hopes of improving. She had no evidence of myonecrosis. Cardiac enzymes will be repeated in the morning and she has had prior workup. 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 We will follow her telemetry. Juan Be M.D. : Otis JOB#: [id number] CC:
[2019-03-25 04:00] VITALS: BP 136/79
[2019-03-25 04:54] LABS: ANION GAP 9 mmol/L (5-15); BLOOD UREA NITROGEN 14 mg/dL (7-18); CALCIUM 8.4 MG/DL (8.5-10.1); CARBON DIOXIDE 26 MMOL/L (21-32); CHLORIDE 104 MMOL/L (98-107); CREATININE 1.2 MG/DL (0.55-1.30); POTASSIUM 3.7 MMOL/L (3.5-5.1); SODIUM 139 MMOL/L (136-145)
--- NOTE | 2019-03-25 05:00 | NUR ---
NURSE NOTES: noted pt has bowel movement x1, moderate amount, brown soft and formed stool noted. No acute distress noted at this time. Heparin drip held for ptt> 150.
[2019-03-25] MEDS: Levothyroxine 25mcg tab ORAL SCH (05:42)
[2019-03-25] MEDS: Solu-MEDROL 125mg Inj IV SCH ×2 (05:42→12:11)
[2019-03-25] MEDS: Promethazine/Codeine 5ml UD ORAL PRN ×2 (05:42→20:36)
--- NOTE | 2019-03-25 06:23 | NUR ---
NURSE NOTES: Hep drip started @ 14U/kg/hr. SR on panel monitor. No distress noted at this time. PTT ordered at 1223 timed. Will continue to monitor.
--- NOTE | 2019-03-25 07:07 | NUR ---
HAND-OFF: Report given to JERZY Negro.
--- NOTE | 2019-03-25 07:08 | NUR ---
NURSE NOTES: Received report from JERZY Coe. Observed patient in bed, awake, alert, verbally responsive, and able to make needs known. On room air, denies SOB; no acute respiratory distress noted. helpdesk administrator shows sinus rhythm with HR 72. IV on left forearm intact and patent with IV fluids running at prescribed rate. Patient denies pain/discomfort at this time. All needs attended to. Safety precautions in place; bed locked, alarmed, and in lowest position, side rails up x2, and call light left within reach. Instructed patient to call for assistance, verbalized understanding. Will continue plan of care and will continue to monitor. Signed heparin log book with outgoing nurse.
[2019-03-25 08:00] VITALS: BP 132/74
[2019-03-25] MEDS: Theophylline ER 100mg ORAL SCH ×2 (08:46→20:37)
[2019-03-25] MEDS: Aspirin EC 81mg tab ORAL SCH (08:46)
[2019-03-25] MEDS: Furosemide 40mg tab ORAL SCH (08:47)
[2019-03-25] MEDS: Metoprolol Succinate XL 25mg tab ORAL SCH (08:47)
[2019-03-25] MEDS: Digoxin 0.5mg/2ml Inj IVP SCH (08:47)
[2019-03-25] MEDS: Spironolactone 25mg tab ORAL SCH (08:47)
[2019-03-25] MEDS: Lisinopril 20mg tab ORAL SCH ×2 (08:47→20:36)
[2019-03-25 12:00] VITALS: BP 141/76
--- NOTE | 2019-03-25 12:20 | Pulmonology Progress Note ---
Assessment/Plan Problems: (1) Acute bronchitis (2) COPD (chronic obstructive pulmonary disease) (3) SVT (supraventricular tachycardia) (4) Acute kidney injury (5) Hemiparesis affecting right side as late effect of cerebrovascular accident (CVA) (6) Hypothyroidism (7) HTN (hypertension) Assessment/Plan still coughing add Atrovent taper steroids f/u cardio recommendations symptomatic treatment Subjective ROS Limited/Unobtainable: No Interval Events: still coughing Allergies: Coded Allergies: NO KNOWN ALLERGIES (Verified Allergy, Unknown, 10/29/18) Objective Last 24 Hour Vital Signs Date Time Temp Pulse Resp B/P (MAP) Pulse Ox O2 Delivery O2 Flow Rate FiO2 03/25/19 12:00 Room Air 03/25/19 08:47 132/74 03/25/19 08:47 72 132/74 03/25/19 08:47 72 03/25/19 08:00 Room Air 03/25/19 08:00 98.4 72 18 132/74 (93) 94 03/25/19 07:41 81 03/25/19 04:00 89 03/25/19 04:00 97.5 85 20 136/79 (98) 95 03/25/19 04:00 Room Air 03/25/19 00:00 84 03/25/19 00:00 98.5 85 20 155/89 (111) 94 03/25/19 00:00 Room Air 03/24/19 21:02 153/89 03/24/19 20:00 81 03/24/19 20:00 Room Air 03/24/19 20:00 98.8 79 20 153/89 (110) 96 03/24/19 16:00 Room Air 03/24/19 16:00 98.8 72 15 124/80 (95) 100 03/24/19 15:22 71 Intake and Output 03/24/19 03/25/19 19:00 07:00 Intake Total 994.88493 ml 443.316 ml Output Total 600 ml Balance 994.59677 ml -156.684 ml Intake Oral 500 ml 120 ml IV Total 494.96662 ml 323.316 ml Output Urine Total 600 ml # Voids 3 2 # Bowel Movements 1 General Appearance: WD/WN HEENT: normocephalic, atraumatic Respiratory/Chest: chest wall non-tender, lungs clear Cardiovascular: normal peripheral pulses, normal rate Abdomen: normal bowel sounds, soft, non tender Genitourinary: normal external genitalia Extremities: no cyanosis Skin: no lesions Neurologic/Psychiatric: cytogenetic technologist II-XII grossly normal Microbiology Date/Time Source Procedure Growth Status 03/23/19 16:26 Nasal Nares - Final Complete 03/23/19 16:26 Nasal Nares - Final Complete Laboratory Tests 03/25/19 04:00: Activated Partial Thromboplast Time > 150*H, Sodium Level 139, Potassium Level 3.7, Chloride Level 104, Carbon Dioxide Level 26, Anion Gap 9, Blood Urea Nitrogen 14, Creatinine 1.2, Estimat Glomerular Filtration Rate 54.5, Glucose Level 222#H, Calcium Level 8.4L, Magnesium Level 2.0, Troponin I 0.003, Pro-B- Type Natriuretic Peptide 4074H Current Medications Medications (Trade) Dose Ordered Sig/Marline Route PRN Reason Start Time Stop Time Status Last Admin Dose Admin Aspirin (Ecotrin) 81 mg DAILY ORAL 03/24/19 09:00 04/23/19 08:59 03/25/19 08:46 Clopidogrel Bisulfate (Plavix) 75 mg DAILY ORAL 03/24/19 09:00 04/23/19 08:59 03/25/19 08:46 Dextrose (Dextrose 50%) 25 ml Q30M PRN IV Hypoglycemia 03/23/19 21:30 04/22/19 21:29 Dextrose (Dextrose 50%) 50 ml Q30M PRN IV Hypoglycemia 03/23/19 21:30 04/22/19 21:29 Digoxin (Lanoxin) 0.25 mg DAILY IVP 03/24/19 09:00 04/23/19 08:59 03/25/19 08:47 Diltiazem HCl (Cardizem) 10 mg Q1H PRN IV heart rate more than 120, 03/23/19 21:45 04/22/19 21:44 Furosemide (Lasix) 40 mg DAILY ORAL 03/25/19 09:00 04/24/19 08:59 03/25/19 08:47 Heparin Sodium/ Dextrose 500 ml @ 27.941 mls/ hr ADJUST PER PROTOCOL IV 03/25/19 06:15 04/24/19 06:14 03/25/19 06:23 Levothyroxine Sodium (Synthroid) 25 mcg ACBREAKFAST ORAL 03/24/19 06:30 04/23/19 06:29 03/25/19 05:42 Lisinopril (Prinivil) 20 mg Q12HR ORAL 03/24/19 21:00 04/23/19 20:59 03/25/19 08:47 Lorazepam (Ativan 2mg/ml 1ml) 0.5 mg Q4H PRN IV For Anxiety 03/23/19 21:30 03/30/19 21:29 Methylprednisolone Sodium Succinate (Solu-MEDROL) 60 mg DAILY IV 03/26/19 09:00 04/23/19 00:00 Metoprolol Succinate (Toprol XL) 25 mg DAILY ORAL 03/25/19 09:00 04/24/19 08:59 03/25/19 08:47 Morphine Sulfate (Morphine Sulfate) 2 mg Q4H PRN IVP severe pain 7-10 03/23/19 21:30 03/30/19 21:29 Nitroglycerin (Ntg) 0.4 mg Q5M X 3 DOSES PRN SL Prn Chest Pain 03/23/19 21:30 04/22/19 21:29 Ondansetron HCl (Zofran) 4 mg Q6H PRN IVP Nausea & Vomiting 03/23/19 21:30 04/22/19 21:29 Promethazine HCl/ Codeine (Phenergan with Codeine) 5 ml Q6H PRN ORAL cough 03/23/19 21:30 04/22/19 21:29 03/25/19 05:42 Spironolactone (Aldactone) 25 mg DAILY ORAL 03/25/19 09:00 04/24/19 08:59 03/25/19 08:47 Temazepam (Restoril) 15 mg HSPRN PRN ORAL Insomnia 03/23/19 21:30 03/30/19 21:29 Theophylline (Domenic-Dur) 100 mg EVERY 12 HOURS ORAL 03/24/19 09:00 04/23/19 08:59 03/25/19 08:46 Halina Hameed MD Mar 25, 2019 12:20
--- NOTE | 2019-03-25 12:30 | NUR ---
NURSE NOTES: Repeat PTT came back at 88; no change with rate per protocol, remains at 14units/kg/hr. Verified with charge nurse. Will continue to monitor patient.
--- NOTE | 2019-03-25 12:33 | Consultation ---
History of Present Illness General Date patient seen: Mar 25, 2019 Chief Complaint: Dyspnea/Respdistress Present Illness HPI 68 y/o F with hx of CHF, HTN, obesity, COPD, former smoker, cardiomyopathy EF 30 -35%, CVA w/ R hemiparesis (2008), Parkinson's disease, HLD, hypothyroidism presented to ED on 03/23 with 3-4 days of SOB, orthopnea, PND, MARSH, cough and wheezing. Upon admission noted to have tachycardia to 134; felt to be SVT. Given adenosine and converted. Denied f/c, CP, DANIELS, n/v, hemoptysis, diarrhea. Allergies: Coded Allergies: NO KNOWN ALLERGIES (Verified Allergy, Unknown, 10/29/18) Medication History Scheduled Aspirin* (Aspir 81*), 81 MG ORAL DAILY, (Reported) Atorvastatin Calcium* (Lipitor*), 10 MG ORAL BEDTIME, (Reported) Brimonidine Tartrate (Alphagan P), 1 DROP OP TID, (Reported) Carvedilol* (Carvedilol*), 6.25 MG ORAL EVERY 12 HOURS, (Reported) Cholecalciferol (Vitamin D3) (Vitamin D3), 1,000 UNIT PO DAILY, (Reported) Clopidogrel Bisulfate* (Plavix*), 75 MG ORAL DAILY Furosemide* (Lasix*), 40 MG ORAL DAILY, (Reported) Levothyroxine Sodium* (Synthroid*), 25 MCG ORAL DAILY, (Reported) Netarsudil Mesylate (Rhopressa), 1 ML OP QHS, (Reported) Tizanidine Hcl (Tizanidine Hcl), 2 MG PO EVERY 12 HOURS, (Reported) Scheduled PRN Acetaminophen* (Acetaminophen 325MG Tablet*), 650 MG ORAL Q8HR PRN for ARTHRITIS PAIN, (Reported) Budesonide/Formoterol Fumarate (Symbicort 160-4.5 Mcg Inhaler), 2 PUFF IH BID PRN for Shortness of Breath, (Reported) Discontinued Medications Lisinopril* (Prinivil*), 20 MG ORAL Q12HR Discontinued Reason: Therapy completed Methylprednisolone (Methylprednisolone*), 4 MG ORAL DIRECTED Discontinued Reason: Therapy completed Mupirocin* (Mupirocin*), 1 APPLIC TOPIC ONCE DAILY PRN for Itching, (Reported) Discontinued Reason: Therapy completed Spironolactone* (Aldactone*), 25 MG ORAL DAILY Discontinued Reason: Therapy completed Vitamin D (Vitamin D3), 400 UNITS ORAL DAILY, (Reported) Discontinued Reason: Therapy completed Patient History Healthcare decision maker Resuscitation status Full Code Advanced Directive on File No Patient History Narrative Pmhx: as above Shx: She quit smoking 2 years ago. Does not drink alcoholic beverages. No drug use. Fhx: non contributory Physical Exam Physical Exam Narrative GENERAL: The patient is well-developed and well-nourished obese female, in moderate respiratory distress. HEENT: Eyes, pupils are equal and responsive to light and accommodation. Extraocular movements are intact. NECK: Supple without lymphadenopathy. CHEST: Few wheezes in the bilateral bases with crackles at bilateral bases. CARDIOVASCULAR: Regular rhythm and rate. S1 and S2 normal without murmurs, rubs, or gallops. ABDOMEN: Soft, nontender, and nondistended. Positive bowel sounds. No hepatosplenomegaly. Currently, no rebound or guarding noted. EXTREMITIES: Negative for clubbing, cyanosis, edema. Last 24 Hour Vital Signs Date Time Temp Pulse Resp B/P (MAP) Pulse Ox O2 Delivery O2 Flow Rate FiO2 03/25/19 12:00 Room Air 03/25/19 08:47 132/74 03/25/19 08:47 72 132/74 03/25/19 08:47 72 03/25/19 08:00 Room Air 03/25/19 08:00 98.4 72 18 132/74 (93) 94 03/25/19 07:41 81 03/25/19 04:00 89 03/25/19 04:00 97.5 85 20 136/79 (98) 95 03/25/19 04:00 Room Air 03/25/19 00:00 84 03/25/19 00:00 98.5 85 20 155/89 (111) 94 03/25/19 00:00 Room Air 03/24/19 21:02 153/89 03/24/19 20:00 81 03/24/19 20:00 Room Air 03/24/19 20:00 98.8 79 20 153/89 (110) 96 03/24/19 16:00 Room Air 03/24/19 16:00 98.8 72 15 124/80 (95) 100 03/24/19 15:22 71 Intake and Output 03/24/19 03/25/19 19:00 07:00 Intake Total 994.78786 ml 443.316 ml Output Total 600 ml Balance 994.99035 ml -156.684 ml Intake Oral 500 ml 120 ml IV Total 494.28137 ml 323.316 ml Output Urine Total 600 ml # Voids 3 2 # Bowel Movements 1 Laboratory Tests Test 03/25/19 04:00 Activated Partial Thromboplast Time > 150 SEC (23-33) *H Sodium Level 139 MMOL/L (136-145) Potassium Level 3.7 MMOL/L (3.5-5.1) Chloride Level 104 MMOL/L (98-107) Carbon Dioxide Level 26 MMOL/L (21-32) Anion Gap 9 mmol/L (5-15) Blood Urea Nitrogen 14 mg/dL (7-18) Creatinine 1.2 MG/DL (0.55-1.30) Estimat Glomerular Filtration Rate 54.5 mL/min (>60) Glucose Level 222 MG/DL (74-106) #H Calcium Level 8.4 MG/DL (8.5-10.1) L Magnesium Level 2.0 MG/DL (1.8-2.4) Troponin I 0.003 ng/mL (0.000-0.056) Pro-B-Type Natriuretic Peptide 4074 pg/mL (0-125) H Height (Feet): 5 Height (Inches): 5.00 Weight (Pounds): 220 Medications Current Medications Medications (Trade) Dose Ordered Sig/Marline Route PRN Reason Start Time Stop Time Status Last Admin Dose Admin Aspirin (Ecotrin) 81 mg DAILY ORAL 03/24/19 09:00 04/23/19 08:59 03/25/19 08:46 Clopidogrel Bisulfate (Plavix) 75 mg DAILY ORAL 03/24/19 09:00 04/23/19 08:59 03/25/19 08:46 Dextrose (Dextrose 50%) 25 ml Q30M PRN IV Hypoglycemia 03/23/19 21:30 04/22/19 21:29 Dextrose (Dextrose 50%) 50 ml Q30M PRN IV Hypoglycemia 03/23/19 21:30 04/22/19 21:29 Digoxin (Lanoxin) 0.25 mg DAILY IVP 03/24/19 09:00 04/23/19 08:59 03/25/19 08:47 Diltiazem HCl (Cardizem) 10 mg Q1H PRN IV heart rate more than 120, 03/23/19 21:45 04/22/19 21:44 Furosemide (Lasix) 40 mg DAILY ORAL 03/25/19 09:00 04/24/19 08:59 03/25/19 08:47 Heparin Sodium/ Dextrose 500 ml @ 27.941 mls/ hr ADJUST PER PROTOCOL IV 03/25/19 06:15 04/24/19 06:14 03/25/19 06:23 Ipratropium [place] (Atrovent) 500 mcg TIDRT HHN 03/25/19 13:00 03/30/19 12:59 UNV Levothyroxine Sodium (Synthroid) 25 mcg ACBREAKFAST ORAL 03/24/19 06:30 04/23/19 06:29 03/25/19 05:42 Lisinopril (Prinivil) 20 mg Q12HR ORAL 03/24/19 21:00 04/23/19 20:59 03/25/19 08:47 Lorazepam (Ativan 2mg/ml 1ml) 0.5 mg Q4H PRN IV For Anxiety 03/23/19 21:30 03/30/19 21:29 Methylprednisolone Sodium Succinate (Solu-MEDROL) 60 mg DAILY IV 03/26/19 09:00 04/23/19 00:00 Metoprolol Succinate (Toprol XL) 25 mg DAILY ORAL 03/25/19 09:00 04/24/19 08:59 03/25/19 08:47 Morphine Sulfate (Morphine Sulfate) 2 mg Q4H PRN IVP severe pain 7-10 03/23/19 21:30 03/30/19 21:29 Nitroglycerin (Ntg) 0.4 mg Q5M X 3 DOSES PRN SL Prn Chest Pain 03/23/19 21:30 04/22/19 21:29 Ondansetron HCl (Zofran) 4 mg Q6H PRN IVP Nausea & Vomiting 03/23/19 21:30 04/22/19 21:29 Promethazine HCl/ Codeine (Phenergan with Codeine) 5 ml Q6H PRN ORAL cough 03/23/19 21:30 04/22/19 21:29 03/25/19 05:42 Spironolactone (Aldactone) 25 mg DAILY ORAL 03/25/19 09:00 04/24/19 08:59 03/25/19 08:47 Temazepam (Restoril) 15 mg HSPRN PRN ORAL Insomnia 03/23/19 21:30 03/30/19 21:29 Theophylline (Domenic-Dur) 100 mg EVERY 12 HOURS ORAL 03/24/19 09:00 04/23/19 08:59 03/25/19 08:46 Assessment/Plan Assessment/Plan: Abx: Zosyn 03/23- Assessment: Afebrile Mild leukocytosis -03/23 u/a no pyuria CHF exacerbation COPD exacerbation -CXR: The heart is borderline enlarged. Lungs and pleural spaces are clear. SVT BERENICE, improving CHF HTN obesity COPD former smoker cardiomyopathy EF 30-35% CVA w/ R hemiparesis (2008) Parkinson's disease HLD hypothyroidism Plan: -Continue to monitor off abx unless febrile, worsening WBC, and/or new infiltrates on CXR -f/u cx -Monitor CBC/CMP, temperatures -Influenza -CBC, CXR am -Cards f/u -aspiration precautions Thank you for this consultation. Will continue to follow along with you. Discussed with Heavenly Anderson M.D. Mar 25, 2019 12:33
--- NOTE | 2019-03-25 12:46 | Cardiology Report ---
APPROVED REPORT EKG Measurement Heart [id number] Sinus rhythm with occasional premature ventricular complexes Incomplete left bundle branch block Nonspecific T wave abnormality Abnormal ECG
[2019-03-25 13:02] LABS: HEMATOCRIT 35.4 % (37.0-47.0); HEMOGLOBIN 11.4 G/DL (12.0-16.0); MEAN CORPUSCULAR VOLUME 93 FL (80-99); PLATELET COUNT 240 K/UL (150-450); RED BLOOD COUNT 3.81 M/UL (4.20-5.40); RED CELL DISTRIBUTION WIDTH 12.6 % (11.6-14.8); WHITE BLOOD COUNT 17.8 K/UL (4.8-10.8)
[2019-03-25] MEDS: Ipratropium 0.02% Inh Soln 2.5ml UD HHN SCH ×2 (13:04→19:14)
[2019-03-25 13:07] LABS: ALANINE AMINOTRANSFERASE 21 U/L (12-78); ALBUMIN 2.9 G/DL (3.4-5.0); ALBUMIN/GLOBULIN RATIO 0.6 (1.0-2.7); ALKALINE PHOSPHATASE 100 U/L (46-116); ANION GAP 8 mmol/L (5-15); ASPARTATE AMINO TRANSFERASE 16 U/L (15-37); BILIRUBIN,TOTAL 0.3 MG/DL (0.2-1.0); BLOOD UREA NITROGEN 16 mg/dL (7-18); CALCIUM 8.4 MG/DL (8.5-10.1); CARBON DIOXIDE 28 MMOL/L (21-32); CHLORIDE 102 MMOL/L (98-107); CREATININE 1.2 MG/DL (0.55-1.30); POTASSIUM 3.8 MMOL/L (3.5-5.1); SODIUM 138 MMOL/L (136-145)
--- NOTE | 2019-03-25 14:14 | Diagnostic Imaging Report ---
Indication: Cough Technique: One view of the chest Comparison: 03/23/2019 Findings: Body habitus limits evaluation The heart is borderline enlarged. The left hemidiaphragm is obscured, probably due to overlying soft tissue but atelectasis and/or pleural fluid at the left lung base cannot be completely ruled out. Lungs and pleural spaces are otherwise clear. Impression: Doubt acute process, but atelectasis or pleural fluid at the left lung base not completely excludable. Borderline cardiomegaly
--- NOTE | 2019-03-25 14:21 | NUR ---
CASE MANAGEMENT:REVIEW 68 YR OLD FEMALE WALKED IN TO ER CC: SOB X3 DAYS AND CHEST PAIN PMH: STROKE. HTN. COPD. CHF SI: CHF. SVT. BERENICE 99.7 130 24 95/65 93% ON RA WBC+12.4 IS: TYLENOL PO ASA PO IV ADENOSINE X2 IV LASIX CXR : TO STEP DOWN UNIT IS: HEPARIN GTT 03/25/18 SI: SVT. COPD. ACUTE BRONCHITIS 98.3 63 18 141/76 95% ON RA WBC+17.8 GLUCOSE+222 BNP+4074 IS: IV DIGOXIN QD HEPARIN GTT IV SOLUMEDROL Q6HRS ATROVENT HHN TID TOPROL XL PO QD LASIX PO QD ALDACTONE PO QD LISINOPRIL PO Q12 JOSIAH-DUR PO Q12 ASA PO QD PLAVIX PO QD : STEP DOWN UNIT
[2019-03-25 16:00] VITALS: BP 156/77
--- NOTE | 2019-03-25 17:23 | Internal Med Progress Note ---
Subjective Date of Service: Mar 25, 2019 Physician Name Antonio Anglin Attending Physician Charly Sandhu MD Current Medications Medications (Trade) Dose Ordered Sig/Marline Route PRN Reason Start Time Stop Time Status Last Admin Dose Admin Aspirin (Ecotrin) 81 mg DAILY ORAL 03/24/19 09:00 04/23/19 08:59 03/25/19 08:46 Clopidogrel Bisulfate (Plavix) 75 mg DAILY ORAL 03/24/19 09:00 04/23/19 08:59 03/25/19 08:46 Dextrose (Dextrose 50%) 25 ml Q30M PRN IV Hypoglycemia 03/23/19 21:30 04/22/19 21:29 Dextrose (Dextrose 50%) 50 ml Q30M PRN IV Hypoglycemia 03/23/19 21:30 04/22/19 21:29 Digoxin (Lanoxin) 0.25 mg DAILY IVP 03/24/19 09:00 04/23/19 08:59 03/25/19 08:47 Diltiazem HCl (Cardizem) 10 mg Q1H PRN IV heart rate more than 120, 03/23/19 21:45 04/22/19 21:44 Furosemide (Lasix) 40 mg DAILY ORAL 03/25/19 09:00 04/24/19 08:59 03/25/19 08:47 Heparin Sodium/ Dextrose 500 ml @ 27.941 mls/ hr ADJUST PER PROTOCOL IV 03/25/19 06:15 04/24/19 06:14 03/25/19 06:23 Ipratropium [place] (Atrovent) 500 mcg TIDRT HHN 03/25/19 13:00 03/30/19 12:59 03/25/19 13:04 Levothyroxine Sodium (Synthroid) 25 mcg ACBREAKFAST ORAL 03/24/19 06:30 04/23/19 06:29 03/25/19 05:42 Lisinopril (Prinivil) 20 mg Q12HR ORAL 03/24/19 21:00 04/23/19 20:59 03/25/19 08:47 Lorazepam (Ativan 2mg/ml 1ml) 0.5 mg Q4H PRN IV For Anxiety 03/23/19 21:30 03/30/19 21:29 Methylprednisolone Sodium Succinate (Solu-MEDROL) 60 mg DAILY IV 03/26/19 09:00 04/23/19 00:00 Metoprolol Succinate (Toprol XL) 25 mg DAILY ORAL 03/25/19 09:00 04/24/19 08:59 03/25/19 08:47 Morphine Sulfate (Morphine Sulfate) 2 mg Q4H PRN IVP severe pain 7-10 03/23/19 21:30 03/30/19 21:29 Nitroglycerin (Ntg) 0.4 mg Q5M X 3 DOSES PRN SL Prn Chest Pain 03/23/19 21:30 04/22/19 21:29 Ondansetron HCl (Zofran) 4 mg Q6H PRN IVP Nausea & Vomiting 03/23/19 21:30 04/22/19 21:29 Promethazine HCl/ Codeine (Phenergan with Codeine) 5 ml Q6H PRN ORAL cough 03/23/19 21:30 04/22/19 21:29 03/25/19 05:42 Spironolactone (Aldactone) 25 mg DAILY ORAL 03/25/19 09:00 04/24/19 08:59 03/25/19 08:47 Temazepam (Restoril) 15 mg HSPRN PRN ORAL Insomnia 03/23/19 21:30 03/30/19 21:29 Theophylline (Domenic-Dur) 100 mg EVERY 12 HOURS ORAL 03/24/19 09:00 04/23/19 08:59 03/25/19 08:46 Allergies: Coded Allergies: NO KNOWN ALLERGIES (Verified Allergy, Unknown, 10/29/18) ROS Limited/Unobtainable: No Constitutional: Reports: no symptoms HEENT: Reports: no symptoms Cardiovascular: Reports: no symptoms Respiratory: Reports: shortness of breath Gastrointestinal/Abdominal: Reports: no symptoms Genitourinary: Reports: no symptoms Neurologic/Psychiatric: Reports: no symptoms Subjective 68 YO F admitted with shortness of breath. Now CHF and COPD exacerbation. Cover for [place]-DR Sandhu Objective Last Vital Signs Date Time Temp Pulse Resp B/P (MAP) Pulse Ox O2 Delivery O2 Flow Rate FiO2 03/25/19 16:00 98.4 87 18 156/77 (103) 95 03/25/19 16:00 Room Air 03/25/19 13:05 21 Laboratory Tests Test 03/25/19 04:00 03/25/19 12:30 Activated Partial Thromboplast Time > 150 SEC (23-33) *H 88 SEC (23-33) H Sodium Level 139 MMOL/L (136-145) 138 MMOL/L (136-145) Potassium Level 3.7 MMOL/L (3.5-5.1) 3.8 MMOL/L (3.5-5.1) Chloride Level 104 MMOL/L (98-107) 102 MMOL/L (98-107) Carbon Dioxide Level 26 MMOL/L (21-32) 28 MMOL/L (21-32) Anion Gap 9 mmol/L (5-15) 8 mmol/L (5-15) Blood Urea Nitrogen 14 mg/dL (7-18) 16 mg/dL (7-18) Creatinine 1.2 MG/DL (0.55-1.30) 1.2 MG/DL (0.55-1.30) Estimat Glomerular Filtration Rate 54.5 mL/min (>60) 54.5 mL/min (>60) Glucose Level 222 MG/DL (74-106) #H 268 MG/DL (74-106) H Calcium Level 8.4 MG/DL (8.5-10.1) L 8.4 MG/DL (8.5-10.1) L Magnesium Level 2.0 MG/DL (1.8-2.4) Troponin I 0.003 ng/mL (0.000-0.056) Pro-B-Type Natriuretic Peptide 4074 pg/mL (0-125) H White Blood Count 17.8 K/UL (4.8-10.8) H Red Blood Count 3.81 M/UL (4.20-5.40) L Hemoglobin 11.4 G/DL (12.0-16.0) L Hematocrit 35.4 % (37.0-47.0) L Mean Corpuscular Volume 93 FL (80-99) Mean Corpuscular Hemoglobin 30.0 PG (27.0-31.0) Mean Corpuscular Hemoglobin Concent 32.3 G/DL (32.0-36.0) Red Cell Distribution Width 12.6 % (11.6-14.8) Platelet Count 240 K/UL (150-450) Mean Platelet Volume 6.8 FL (6.5-10.1) Neutrophils (%) (Auto) % (45.0-75.0) Lymphocytes (%) (Auto) % (20.0-45.0) Monocytes (%) (Auto) % (1.0-10.0) Eosinophils (%) (Auto) % (0.0-3.0) Basophils (%) (Auto) % (0.0-2.0) Differential Total Cells Counted 100 Neutrophils % (Manual) 86 % (45-75) H Lymphocytes % (Manual) 11 % (20-45) L Monocytes % (Manual) 3 % (1-10) Eosinophils % (Manual) 0 % (0-3) Basophils % (Manual) 0 % (0-2) Band Neutrophils 0 % (0-8) Platelet Estimate Adequate Platelet Morphology Normal Hypochromasia 1+ Anisocytosis 1+ Total Bilirubin 0.3 MG/DL (0.2-1.0) Aspartate Amino Transf (AST/SGOT) 16 U/L (15-37) Alanine Aminotransferase (ALT/SGPT) 21 U/L (12-78) Alkaline Phosphatase 100 U/L (46-116) Total Protein 7.8 G/DL (6.4-8.2) Albumin 2.9 G/DL (3.4-5.0) L Globulin 4.9 g/dL Albumin/Globulin Ratio 0.6 (1.0-2.7) L Microbiology Date/Time Source Procedure Growth Status 03/25/19 12:33 Nasopharynx - Final Complete 03/25/19 12:33 Nasopharynx - Final Complete 03/23/19 16:26 Nasal Nares - Final Complete 03/23/19 16:26 Nasal Nares - Final Complete Intake and Output 03/24/19 03/25/19 18:59 06:59 Intake Total 998.34020 ml 479.240 ml Output Total 600 ml Balance 998.78294 ml -120.760 ml Intake Oral 500 ml 120 ml IV Total 498.56527 ml 359.240 ml Output Urine Total 600 ml # Voids 3 2 # Bowel Movements 1 Objective PHYSICAL EXAMINATION: GENERAL: The patient is well-developed and well-nourished obese female, in moderate respiratory distress. HEENT: Eyes, pupils are equal and responsive to light and accommodation. Extraocular movements are intact. NECK: Supple without lymphadenopathy. CHEST: Few wheezes in the bilateral bases with crackles at bilateral bases. CARDIOVASCULAR: Regular rhythm and rate. S1 and S2 normal without murmurs, rubs, or gallops. ABDOMEN: Soft, nontender, and nondistended. Positive bowel sounds. No hepatosplenomegaly. Currently, no rebound or guarding noted. EXTREMITIES: Negative for clubbing, cyanosis, edema. RECTAL/GENITAL: Not performed. NEUROLOGIC: Cranial nerves II through XII are grossly intact without focal deficits. Motor strength is 5/5 bilaterally. Deep tendon reflexes are 2+ plant Assessment/Plan Assessment/Plan ASSESSMENT: This is a 68-year-old female. 1. Shortness of breath. 2. Chronic obstructive pulmonary disease, acute exacerbation. 3. Congestive heart failure, acute on chronic. 4. Cerebrovascular disease. 5. Coronary artery disease. 6. Hypertension. 7. Right hemiparesis. 8. Cardiomyopathy. 9. Hypothyroidism. 10. Hypercholesterolemia. TREATMENT: 1. Shortness of breath/chronic obstructive pulmonary disease. A Pulmonary consultation has been obtained with Dr. Halina Hameed. We will follow recommendation of Pulmonary. The patient is currently tolerating nasal cannula. Continue DuoNebs every four hours as needed. The patient has also been started on Domenic-Dur as well as IV solumedrol. 2. Congestive heart failure. Initial BNP was elevated to 4312. A Cardiology consultation has been obtained with Dr. Be. Continue Lasix as above. 3. Cerebrovascular disease/right hemiparesis. 4. History of coronary artery disease. 5. Hypertension. Continue Coreg and lisinopril as above. 6. Cardiomyopathy with ejection fraction of 30 to 35%. 7. Hypothyroidism. Continue Synthroid as above. 8. Hypercholesterolemia. Antonio Anglin MD Mar 25, 2019 17:23
--- NOTE | 2019-03-25 19:01 | NUR ---
HAND-OFF: Report given to JERZY Coe.
--- NOTE | 2019-03-25 19:33 | NUR ---
NURSE NOTES: Report received from JERZY Negro. Observed pt lying in the bed. A/O x4, denies any pain at this time. SR on patient monitor. On room air with no sob. IV intact, L FA 20G, running heparin drip at 14U/kg/hr noted. L FA 22G TKO. Bed in the lowest position. Side rails up x2. Call light within reach. Will continue to monitor.
[2019-03-25 20:00] VITALS: BP 147/75
--- NOTE | 2019-03-25 23:00 | NUR ---
NURSE NOTES: Pt void, using bed pen, 500cc of yellow urine noted. partial bath given. No acute distress noted at this time. Hep drip on, 14U/kg/hr. Will continue to monitor.
[2019-03-26] VITALS (7 sets, daily range): BP systolic 133–157; BP diastolic 72–84
--- NOTE | 2019-03-26 03:19 | NUR ---
NURSE NOTES: Observed pt sleeping in the bed. IV site intact, running Hep drip at 14U/KG/hr. VS WNL. SR on teletypesetter monitor. Will continue to monitor.
[2019-03-26 04:45] LABS: HEMATOCRIT 32.4 % (37.0-47.0); HEMOGLOBIN 10.8 G/DL (12.0-16.0); MEAN CORPUSCULAR VOLUME 93 FL (80-99); PLATELET COUNT 224 K/UL (150-450); RED CELL DISTRIBUTION WIDTH 12.5 % (11.6-14.8)
[2019-03-26 05:10] LABS: ALANINE AMINOTRANSFERASE 20 U/L (12-78); ALBUMIN 2.7 G/DL (3.4-5.0); ALBUMIN/GLOBULIN RATIO 0.6 (1.0-2.7); ALKALINE PHOSPHATASE 106 U/L (46-116); ANION GAP 6 mmol/L (5-15); ASPARTATE AMINO TRANSFERASE 15 U/L (15-37); BILIRUBIN,TOTAL 0.3 MG/DL (0.2-1.0); BLOOD UREA NITROGEN 18 mg/dL (7-18); CALCIUM 8.6 MG/DL (8.5-10.1); CARBON DIOXIDE 28 MMOL/L (21-32); CHLORIDE 105 MMOL/L (98-107); CREATININE 1.1 MG/DL (0.55-1.30); POTASSIUM 3.8 MMOL/L (3.5-5.1); SODIUM 139 MMOL/L (136-145)
[2019-03-26] MEDS: Heparin 25,000u/D5W 500ml 500 ML IV SCH ×2 (05:17→13:43)
[2019-03-26] MEDS: Levothyroxine 25mcg tab ORAL SCH (05:56)
[2019-03-26] MEDS: Ipratropium 0.02% Inh Soln 2.5ml UD HHN SCH ×3 (06:56→19:13)
--- NOTE | 2019-03-26 07:41 | NUR ---
HAND-OFF: Report given to Gia Viveros RN.
--- NOTE | 2019-03-26 07:50 | NUR ---
NURSE NOTES: received pt in the bed, awake, alert, oriented, vital signs stable, no co pain, no SOB, respiration regular, skin warm and dry to touch, intact, pt on Heparin drip 12u/kg, void with yellow urine, tolerate diet well, bed in low position, call light within reach.
[2019-03-26] MEDS ORDERED: Solu-MEDROL 125mg Inj IV SCH (09:00)
[2019-03-26] MEDS: Theophylline ER 100mg ORAL SCH ×2 (09:09→20:23)
[2019-03-26] MEDS: Aspirin EC 81mg tab ORAL SCH (09:09)
[2019-03-26] MEDS: Lisinopril 20mg tab ORAL SCH ×2 (09:10→20:24)
[2019-03-26] MEDS: Spironolactone 25mg tab ORAL SCH (09:10)
[2019-03-26] MEDS: Furosemide 40mg tab ORAL SCH (09:10)
[2019-03-26] MEDS: Metoprolol Succinate XL 25mg tab ORAL SCH (09:10)
[2019-03-26] MEDS: Digoxin 0.5mg/2ml Inj IVP SCH (09:11)
--- NOTE | 2019-03-26 10:28 | Pulmonology Progress Note ---
Assessment/Plan Problems: (1) Acute bronchitis (2) SVT (supraventricular tachycardia) (3) COPD (chronic obstructive pulmonary disease) (4) Acute kidney injury (5) Hemiparesis affecting right side as late effect of cerebrovascular accident (CVA) (6) Hypothyroidism (7) HTN (hypertension) Assessment/Plan add Lidocain inhalation still coughing add Atrovent taper steroids f/u cardio recommendations, has been in sinus rhythm for some time now. symptomatic treatment Subjective ROS Limited/Unobtainable: No Interval Events: still coughing, atrovent inhalation didin't help Allergies: Coded Allergies: NO KNOWN ALLERGIES (Verified Allergy, Unknown, 10/29/18) Objective Last 24 Hour Vital Signs Date Time Temp Pulse Resp B/P (MAP) Pulse Ox O2 Delivery O2 Flow Rate FiO2 03/26/19 09:11 67 03/26/19 09:10 144/72 03/26/19 09:10 67 144/72 03/26/19 08:00 Room Air 03/26/19 08:00 97.9 67 20 144/72 (96) 99 03/26/19 07:59 73 03/26/19 07:07 70 16 100 Room Air 21 72 16 97 03/26/19 04:00 Room Air 03/26/19 04:00 98.5 70 20 140/80 (100) 95 03/26/19 04:00 79 03/26/19 00:00 Room Air 03/26/19 00:00 81 03/26/19 00:00 98.0 70 20 133/75 (94) 96 03/25/19 20:36 147/75 03/25/19 20:00 98.1 72 20 147/75 (99) 95 03/25/19 20:00 Room Air 03/25/19 19:22 67 03/25/19 19:15 72 18 100 Room Air 21 69 18 97 03/25/19 16:00 98.4 87 18 156/77 (103) 95 03/25/19 16:00 Room Air 03/25/19 15:23 79 03/25/19 13:05 66 16 100 Room Air 21 60 16 98 03/25/19 12:00 Room Air 03/25/19 12:00 98.3 63 18 141/76 (97) 95 03/25/19 11:44 67 Intake and Output 03/25/19 03/26/19 19:00 07:00 Intake Total 1027.351 ml 423.360 ml Output Total 600 ml Balance 1027.351 ml -176.640 ml Intake Oral 720 ml 120 ml IV Total 307.351 ml 303.360 ml Output Urine Total 600 ml # Voids 4 2 # Bowel Movements 1 General Appearance: WD/WN HEENT: normocephalic, atraumatic Respiratory/Chest: chest wall non-tender, lungs clear, normal breath sounds Breasts: no masses Cardiovascular: normal rate Abdomen: normal bowel sounds, soft, non tender Genitourinary: normal external genitalia Skin: no rash Neurologic/Psychiatric: job hand II-XII grossly normal Microbiology Date/Time Source Procedure Growth Status 03/25/19 12:33 Nasopharynx - Final Complete 03/25/19 12:33 Nasopharynx - Final Complete 03/23/19 16:26 Nasal Nares - Final Complete 03/23/19 16:26 Nasal Nares - Final Complete Laboratory Tests 03/25/19 12:30: White Blood Count 17.8H, Red Blood Count 3.81L, Hemoglobin 11.4L, Hematocrit 35.4L, Mean Corpuscular Volume 93, Mean Corpuscular Hemoglobin 30.0, Mean Corpuscular Hemoglobin Concent 32.3, Red Cell Distribution Width 12.6, Platelet Count 240, Mean Platelet Volume 6.8, Neutrophils (%) (Auto) , Lymphocytes (%) ( Auto) , Monocytes (%) (Auto) , Eosinophils (%) (Auto) , Basophils (%) (Auto) , Differential Total Cells Counted 100, Neutrophils % (Manual) 86H, Lymphocytes % (Manual) 11L, Monocytes % (Manual) 3, Eosinophils % (Manual) 0, Basophils % ( Manual) 0, Band Neutrophils 0, Platelet Estimate Adequate, Platelet Morphology Normal, Hypochromasia 1+, Anisocytosis 1+, Activated Partial Thromboplast Time 88H, Sodium Level 138, Potassium Level 3.8, Chloride Level 102, Carbon Dioxide Level 28, Anion Gap 8, Blood Urea Nitrogen 16, Creatinine 1.2, Estimat Glomerular Filtration Rate 54.5, Glucose Level 268H, Calcium Level 8.4L, Total Bilirubin 0.3, Aspartate Amino Transf (AST/SGOT) 16, Alanine Aminotransferase ( ALT/SGPT) 21, Alkaline Phosphatase 100, Total Protein 7.8, Albumin 2.9L, Globulin 4.9, Albumin/Globulin Ratio 0.6L 03/26/19 03:50: White Blood Count 16.0H, Red Blood Count 3.50L, Hemoglobin 10.8L, Hematocrit 32.4L, Mean Corpuscular Volume 93, Mean Corpuscular Hemoglobin 30.9, Mean Corpuscular Hemoglobin Concent 33.3, Red Cell Distribution Width 12.5, Platelet Count 224, Mean Platelet Volume 6.8, Neutrophils (%) (Auto) , Lymphocytes (%) ( Auto) , Monocytes (%) (Auto) , Eosinophils (%) (Auto) , Basophils (%) (Auto) , Differential Total Cells Counted 100, Neutrophils % (Manual) 85H, Lymphocytes % (Manual) 10L, Monocytes % (Manual) 5, Eosinophils % (Manual) 0, Basophils % ( Manual) 0, Band Neutrophils 0, Platelet Estimate Adequate, Platelet Morphology Normal, Hypochromasia 1+, Activated Partial Thromboplast Time 97H, Sodium Level 139, Potassium Level 3.8, Chloride Level 105, Carbon Dioxide Level 28, Anion Gap 6, Blood Urea Nitrogen 18, Creatinine 1.1, Estimat Glomerular Filtration Rate > 60, Glucose Level 188H, Calcium Level 8.6, Total Bilirubin 0.3, Aspartate Amino Transf (AST/SGOT) 15, Alanine Aminotransferase (ALT/SGPT) 20, Alkaline Phosphatase 106, Total Protein 7.1, Albumin 2.7L, Globulin 4.4, Albumin /Globulin Ratio 0.6L Current Medications Medications (Trade) Dose Ordered Sig/Marline Route PRN Reason Start Time Stop Time Status Last Admin Dose Admin Aspirin (Ecotrin) 81 mg DAILY ORAL 03/24/19 09:00 04/23/19 08:59 03/26/19 09:09 Clopidogrel Bisulfate (Plavix) 75 mg DAILY ORAL 03/24/19 09:00 04/23/19 08:59 03/26/19 09:09 Dextrose (Dextrose 50%) 25 ml Q30M PRN IV Hypoglycemia 03/23/19 21:30 04/22/19 21:29 Dextrose (Dextrose 50%) 50 ml Q30M PRN IV Hypoglycemia 03/23/19 21:30 04/22/19 21:29 Digoxin (Lanoxin) 0.25 mg DAILY IVP 03/24/19 09:00 04/23/19 08:59 03/26/19 09:11 Diltiazem HCl (Cardizem) 10 mg Q1H PRN IV heart rate more than 120, 03/23/19 21:45 04/22/19 21:44 Furosemide (Lasix) 40 mg DAILY ORAL 03/25/19 09:00 04/24/19 08:59 03/26/19 09:10 Heparin Sodium/ Dextrose 500 ml @ 23.95 mls/ hr ADJUST PER PROTOCOL IV 03/26/19 05:15 04/25/19 05:14 03/26/19 05:17 Ipratropium [place] (Atrovent) 500 mcg TIDRT HHN 03/25/19 13:00 03/30/19 12:59 03/26/19 06:56 Levothyroxine Sodium (Synthroid) 25 mcg ACBREAKFAST ORAL 03/24/19 06:30 04/23/19 06:29 03/26/19 05:56 Lidocaine (Xylocaine 1% MPF 5ml) 10 ml EVERY 4 HOURS PRN HHN cough 03/26/19 10:30 04/25/19 10:29 UNV Lisinopril (Prinivil) 20 mg Q12HR ORAL 03/24/19 21:00 04/23/19 20:59 03/26/19 09:10 Lorazepam (Ativan 2mg/ml 1ml) 0.5 mg Q4H PRN IV For Anxiety 03/23/19 21:30 03/30/19 21:29 Metoprolol Succinate (Toprol XL) 25 mg DAILY ORAL 03/25/19 09:00 04/24/19 08:59 03/26/19 09:10 Morphine Sulfate (Morphine Sulfate) 2 mg Q4H PRN IVP severe pain 7-10 03/23/19 21:30 03/30/19 21:29 Nitroglycerin (Ntg) 0.4 mg Q5M X 3 DOSES PRN SL Prn Chest Pain 03/23/19 21:30 04/22/19 21:29 Ondansetron HCl (Zofran) 4 mg Q6H PRN IVP Nausea & Vomiting 03/23/19 21:30 04/22/19 21:29 Promethazine HCl/ Codeine (Phenergan with Codeine) 5 ml Q6H PRN ORAL cough 03/23/19 21:30 04/22/19 21:29 03/25/19 20:36 Spironolactone (Aldactone) 25 mg DAILY ORAL 03/25/19 09:00 04/24/19 08:59 03/26/19 09:10 Temazepam (Restoril) 15 mg HSPRN PRN ORAL Insomnia 03/23/19 21:30 03/30/19 21:29 Theophylline (Domenic-Dur) 100 mg EVERY 12 HOURS ORAL 03/24/19 09:00 04/23/19 08:59 03/26/19 09:09 Halina Hameed MD Mar 26, 2019 10:28
[2019-03-26] MEDS ORDERED: Lidocaine 1% MPF 10mg/ml 5ml HHN PRN ×2 (10:30→14:11)
--- NOTE | 2019-03-26 12:46 | Infectious Diseases Prog Note ---
Assessment/Plan Assessment/Plan Assessment: Afebrile Leukocytosis; improving (on steroids) -03/23 u/a no pyuria CHF exacerbation COPD exacerbation -03/25 CXR: Doubt acute process, but atelectasis or pleural fluid at the left lung base not completely excludable. Borderline cardiomegaly -CXR: The heart is borderline enlarged. Lungs and pleural spaces are clear. -influenza sc neg SVT BERENICE, improving CHF HTN obesity COPD former smoker cardiomyopathy EF 30-35% CVA w/ R hemiparesis (2008) Parkinson's disease HLD hypothyroidism Plan: -Continue to monitor off abx unless febrile, worsening WBC, and/or new infiltrates on CXR -f/u cx -Monitor CBC/CMP, temperatures -Cards f/u -aspiration precautions Thank you for this consultation. Will continue to follow along with you. Discussed with RN Subjective Allergies: Coded Allergies: NO KNOWN ALLERGIES (Verified Allergy, Unknown, 10/29/18) Subjective afebrile wbc improved Objective Vital Signs Last 24 Hour Vital Signs Date Time Temp Pulse Resp B/P (MAP) Pulse Ox O2 Delivery O2 Flow Rate FiO2 03/26/19 12:00 98.0 62 20 157/82 (107) 96 03/26/19 12:00 Room Air 03/26/19 12:00 65 03/26/19 09:11 67 03/26/19 09:10 144/72 03/26/19 09:10 67 144/72 03/26/19 08:00 Room Air 03/26/19 08:00 97.9 67 20 144/72 (96) 99 03/26/19 07:59 73 03/26/19 07:07 70 16 100 Room Air 21 72 16 97 03/26/19 04:00 Room Air 03/26/19 04:00 98.5 70 20 140/80 (100) 95 03/26/19 04:00 79 03/26/19 00:00 Room Air 03/26/19 00:00 81 03/26/19 00:00 98.0 70 20 133/75 (94) 96 03/25/19 20:36 147/75 03/25/19 20:00 98.1 72 20 147/75 (99) 95 03/25/19 20:00 Room Air 03/25/19 19:22 67 12/5/19 19:15 72 18 100 Room Air 21 69 18 97 03/25/19 16:00 98.4 87 18 156/77 (103) 95 03/25/19 16:00 Room Air 03/25/19 15:23 79 03/25/19 13:05 66 16 100 Room Air 21 60 16 98 Height (Feet): 5 Height (Inches): 5.00 Weight (Pounds): 220 Objective GENERAL: The patient is well-developed and well-nourished obese female, in moderate respiratory distress. HEENT: Eyes, pupils are equal and responsive to light and accommodation. Extraocular movements are intact. NECK: Supple without lymphadenopathy. CHEST: Few wheezes in the bilateral bases with crackles at bilateral bases. CARDIOVASCULAR: Regular rhythm and rate. S1 and S2 normal without murmurs, rubs, or gallops. ABDOMEN: Soft, nontender, and nondistended. Positive bowel sounds. No hepatosplenomegaly. Currently, no rebound or guarding noted. EXTREMITIES: Negative for clubbing, cyanosis, edema. Microbiology Date/Time Source Procedure Growth Status 03/25/19 12:33 Nasopharynx - Final Complete 03/25/19 12:33 Nasopharynx - Final Complete 03/23/19 16:26 Nasal Nares - Final Complete 03/23/19 16:26 Nasal Nares - Final Complete Laboratory Tests Test 03/26/19 03:50 03/26/19 11:30 White Blood Count 16.0 K/UL (4.8-10.8) H Red Blood Count 3.50 M/UL (4.20-5.40) L Hemoglobin 10.8 G/DL (12.0-16.0) L Hematocrit 32.4 % (37.0-47.0) L Mean Corpuscular Volume 93 FL (80-99) Mean Corpuscular Hemoglobin 30.9 PG (27.0-31.0) Mean Corpuscular Hemoglobin Concent 33.3 G/DL (32.0-36.0) Red Cell Distribution Width 12.5 % (11.6-14.8) Platelet Count 224 K/UL (150-450) Mean Platelet Volume 6.8 FL (6.5-10.1) Neutrophils (%) (Auto) % (45.0-75.0) Lymphocytes (%) (Auto) % (20.0-45.0) Monocytes (%) (Auto) % (1.0-10.0) Eosinophils (%) (Auto) % (0.0-3.0) Basophils (%) (Auto) % (0.0-2.0) Differential Total Cells Counted 100 Neutrophils % (Manual) 85 % (45-75) H Lymphocytes % (Manual) 10 % (20-45) L Monocytes % (Manual) 5 % (1-10) Eosinophils % (Manual) 0 % (0-3) Basophils % (Manual) 0 % (0-2) Band Neutrophils 0 % (0-8) Platelet Estimate Adequate Platelet Morphology Normal Hypochromasia 1+ Activated Partial Thromboplast Time 97 SEC (23-33) H 78 SEC (23-33) H Sodium Level 139 MMOL/L (136-145) Potassium Level 3.8 MMOL/L (3.5-5.1) Chloride Level 105 MMOL/L (98-107) Carbon Dioxide Level 28 MMOL/L (21-32) Anion Gap 6 mmol/L (5-15) Blood Urea Nitrogen 18 mg/dL (7-18) Creatinine 1.1 MG/DL (0.55-1.30) Estimat Glomerular Filtration Rate > 60 mL/min (>60) Glucose Level 188 MG/DL (74-106) H Calcium Level 8.6 MG/DL (8.5-10.1) Total Bilirubin 0.3 MG/DL (0.2-1.0) Aspartate Amino Transf (AST/SGOT) 15 U/L (15-37) Alanine Aminotransferase (ALT/SGPT) 20 U/L (12-78) Alkaline Phosphatase 106 U/L (46-116) Total Protein 7.1 G/DL (6.4-8.2) Albumin 2.7 G/DL (3.4-5.0) L Globulin 4.4 g/dL Albumin/Globulin Ratio 0.6 (1.0-2.7) L Current Medications Medications (Trade) Dose Ordered Sig/Marline Route PRN Reason Start Time Stop Time Status Last Admin Dose Admin Aspirin (Ecotrin) 81 mg DAILY ORAL 03/24/19 09:00 04/23/19 08:59 03/26/19 09:09 Clopidogrel Bisulfate (Plavix) 75 mg DAILY ORAL 03/24/19 09:00 04/23/19 08:59 03/26/19 09:09 Dextrose (Dextrose 50%) 25 ml Q30M PRN IV Hypoglycemia 03/23/19 21:30 04/22/19 21:29 Dextrose (Dextrose 50%) 50 ml Q30M PRN IV Hypoglycemia 03/23/19 21:30 04/22/19 21:29 Digoxin (Lanoxin) 0.25 mg DAILY IVP 03/24/19 09:00 04/23/19 08:59 03/26/19 09:11 Diltiazem HCl (Cardizem) 10 mg Q1H PRN IV heart rate more than 120, 03/23/19 21:45 04/22/19 21:44 Furosemide (Lasix) 40 mg DAILY ORAL 03/25/19 09:00 04/24/19 08:59 03/26/19 09:10 Heparin Sodium/ Dextrose 500 ml @ 23.95 mls/ hr ADJUST PER PROTOCOL IV 03/26/19 05:15 04/25/19 05:14 03/26/19 05:17 Ipratropium [place] (Atrovent) 500 mcg TIDRT HHN 03/25/19 13:00 03/30/19 12:59 03/26/19 06:56 Levothyroxine Sodium (Synthroid) 25 mcg ACBREAKFAST ORAL 03/24/19 06:30 04/23/19 06:29 03/26/19 05:56 Lidocaine (Xylocaine 1% MPF 5ml) 10 ml Q4H PRN HHN cough 03/26/19 10:30 04/25/19 10:29 Lisinopril (Prinivil) 20 mg Q12HR ORAL 03/24/19 21:00 04/23/19 20:59 03/26/19 09:10 Lorazepam (Ativan 2mg/ml 1ml) 0.5 mg Q4H PRN IV For Anxiety 03/23/19 21:30 03/30/19 21:29 Metoprolol Succinate (Toprol XL) 25 mg DAILY ORAL 03/25/19 09:00 04/24/19 08:59 03/26/19 09:10 Morphine Sulfate (Morphine Sulfate) 2 mg Q4H PRN IVP severe pain 7-10 03/23/19 21:30 03/30/19 21:29 Nitroglycerin (Ntg) 0.4 mg Q5M X 3 DOSES PRN SL Prn Chest Pain 03/23/19 21:30 04/22/19 21:29 Ondansetron HCl (Zofran) 4 mg Q6H PRN IVP Nausea & Vomiting 03/23/19 21:30 04/22/19 21:29 Promethazine HCl/ Codeine (Phenergan with Codeine) 5 ml Q6H PRN ORAL cough 03/23/19 21:30 04/22/19 21:29 03/25/19 20:36 Spironolactone (Aldactone) 25 mg DAILY ORAL 03/25/19 09:00 04/24/19 08:59 03/26/19 09:10 Temazepam (Restoril) 15 mg HSPRN PRN ORAL Insomnia 03/23/19 21:30 03/30/19 21:29 Theophylline (Domenic-Dur) 100 mg EVERY 12 HOURS ORAL 03/24/19 09:00 04/23/19 08:59 03/26/19 09:09 Heavenly Clark M.D. Mar 26, 2019 12:46
--- NOTE | 2019-03-26 13:37 | NUR ---
RD ASSESSMENT & RECOMMENDATIONS SEE CARE ACTIVITY FOR COMPLETE ASSESSMENT DAILY ESTIMATED NEEDS: Needs based on Cardiac, pulmonary, obese/ 65.9kg abw 22-25 kcals/kg 7558-7909 total kcals 1-1.5 g protein/kg 66-99 g total protein Fluid per MD- on lasix, CHF. mL/kg 4360-3003 total fluid mLs NUTRITION DIAGNOSIS: * Decreased fat and sodium needs r/t CHF, obesity AEB pt is 183% of [place] Body Weight, Obesity class II per guidelines, elev BNP (4074), elev BP. CURRENT DIET:Regular PO DIET RECOMMENDATIONS: CARDIAC/ texture as tolerated ADDITIONAL RECOMMENDATIONS: * Daily standing/calibrated bedscale wt -> CHF dx, on diuretics * Monitor lytes closely on diuretics, replete lytes as needed * A1C for eval of glycemic control. Need for CCHO diet? *Monitor BGs closely need for hypoglycemic agents
[2019-03-26] MEDS ORDERED: Heparin 25,000u/D5W 500ml 500 ML IV SCH (14:09)
--- NOTE | 2019-03-26 14:10 | NUR ---
NURSE NOTES: Received report from JERZY Nielsen. Pt in bed, awake, talkative, no complaints of pain, no apparent distress noted, heparin drip running according to order and verified, pt has cane and all belongings at bedside, bed in lowest position, call light within reach.
[2019-03-26] MEDS ORDERED: LORazepam Inj 2mg/ml 1ml IV PRN (14:11)
[2019-03-26] MEDS ORDERED: Morphine Sulfate 2mg/ml Inj(IV/IM USE ONLY) IVP PRN (14:11)
[2019-03-26] MEDS ORDERED: Nitroglycerin Subl 0.4mg tab SL PRN (14:11)
--- NOTE | 2019-03-26 14:30 | NUR ---
NURSE NOTES: pt transferred to 2E as ordered, condition stable, report given to GAYATHRI BERTRAND.
--- NOTE | 2019-03-26 16:27 | Internal Med Progress Note ---
Subjective Physician Name Charly Sandhu Attending Physician Charly Sandhu MD Current Medications Medications (Trade) Dose Ordered Sig/Marline Route PRN Reason Start Time Stop Time Status Last Admin Dose Admin Aspirin (Ecotrin) 81 mg DAILY ORAL 03/27/19 09:00 04/23/19 08:59 Clopidogrel Bisulfate (Plavix) 75 mg DAILY ORAL 03/27/19 09:00 04/23/19 08:59 Dextrose (Dextrose 50%) 25 ml Q30M PRN IV Hypoglycemia 03/26/19 14:30 04/22/19 21:29 Dextrose (Dextrose 50%) 50 ml Q30M PRN IV Hypoglycemia 03/26/19 14:30 04/22/19 21:29 Digoxin (Lanoxin) 0.25 mg DAILY IVP 03/27/19 09:00 04/23/19 08:59 Diltiazem HCl (Cardizem) 10 mg Q1H PRN IV heart rate more than 120, 03/26/19 14:10 04/25/19 14:09 Furosemide (Lasix) 40 mg DAILY ORAL 03/27/19 09:00 04/24/19 08:59 Heparin Sodium/ Dextrose 500 ml @ 23.95 mls/ hr ADJUST PER PROTOCOL IV 03/26/19 14:09 04/25/19 14:08 03/26/19 14:15 Ipratropium [place] (Atrovent) 500 mcg TIDRT HHN 03/26/19 19:00 03/30/19 12:59 Levothyroxine Sodium (Synthroid) 25 mcg ACBREAKFAST ORAL 03/27/19 06:30 04/23/19 06:29 Lidocaine (Xylocaine 1% MPF 5ml) 10 ml Q4H PRN HHN cough 03/26/19 14:11 04/25/19 14:10 Lisinopril (Prinivil) 20 mg Q12HR ORAL 03/26/19 21:00 04/23/19 20:59 Lorazepam (Ativan 2mg/ml 1ml) 0.5 mg Q4H PRN IV For Anxiety 03/26/19 14:11 04/02/19 14:10 Metoprolol Succinate (Toprol XL) 25 mg DAILY ORAL 03/27/19 09:00 04/24/19 08:59 Morphine Sulfate (Morphine Sulfate) 2 mg Q4H PRN IVP severe pain 7-10 12/6/19 14:11 04/02/19 14:10 Nitroglycerin (Ntg) 0.4 mg Q5M X 3 DOSES PRN SL Prn Chest Pain 03/26/19 14:11 04/25/19 14:10 Ondansetron HCl (Zofran) 4 mg Q6H PRN IVP Nausea & Vomiting 03/26/19 14:11 04/25/19 14:10 Promethazine HCl/ Codeine (Phenergan with Codeine) 5 ml Q6H PRN ORAL cough 03/26/19 14:11 04/25/19 14:10 Spironolactone (Aldactone) 25 mg DAILY ORAL 03/27/19 09:00 04/24/19 08:59 Temazepam (Restoril) 15 mg HSPRN PRN ORAL Insomnia 03/26/19 14:12 04/02/19 14:11 Theophylline (Domenic-Dur) 100 mg EVERY 12 HOURS ORAL 03/26/19 21:00 04/23/19 08:59 Allergies: Coded Allergies: NO KNOWN ALLERGIES (Verified Allergy, Unknown, 10/29/18) Subjective awake, alert, responsive, Less SOB, No CP, Objective Last Vital Signs Date Time Temp Pulse Resp B/P (MAP) Pulse Ox O2 Delivery O2 Flow Rate FiO2 03/26/19 16:00 97.7 61 18 150/78 (102) 93 03/26/19 13:00 Room Air 21 Laboratory Tests Test 03/26/19 03:50 03/26/19 11:30 White Blood Count 16.0 K/UL (4.8-10.8) H Red Blood Count 3.50 M/UL (4.20-5.40) L Hemoglobin 10.8 G/DL (12.0-16.0) L Hematocrit 32.4 % (37.0-47.0) L Mean Corpuscular Volume 93 FL (80-99) Mean Corpuscular Hemoglobin 30.9 PG (27.0-31.0) Mean Corpuscular Hemoglobin Concent 33.3 G/DL (32.0-36.0) Red Cell Distribution Width 12.5 % (11.6-14.8) Platelet Count 224 K/UL (150-450) Mean Platelet Volume 6.8 FL (6.5-10.1) Neutrophils (%) (Auto) % (45.0-75.0) Lymphocytes (%) (Auto) % (20.0-45.0) Monocytes (%) (Auto) % (1.0-10.0) Eosinophils (%) (Auto) % (0.0-3.0) Basophils (%) (Auto) % (0.0-2.0) Differential Total Cells Counted 100 Neutrophils % (Manual) 85 % (45-75) H Lymphocytes % (Manual) 10 % (20-45) L Monocytes % (Manual) 5 % (1-10) Eosinophils % (Manual) 0 % (0-3) Basophils % (Manual) 0 % (0-2) Band Neutrophils 0 % (0-8) Platelet Estimate Adequate Platelet Morphology Normal Hypochromasia 1+ Activated Partial Thromboplast Time 97 SEC (23-33) H 78 SEC (23-33) H Sodium Level 139 MMOL/L (136-145) Potassium Level 3.8 MMOL/L (3.5-5.1) Chloride Level 105 MMOL/L (98-107) Carbon Dioxide Level 28 MMOL/L (21-32) Anion Gap 6 mmol/L (5-15) Blood Urea Nitrogen 18 mg/dL (7-18) Creatinine 1.1 MG/DL (0.55-1.30) Estimat Glomerular Filtration Rate > 60 mL/min (>60) Glucose Level 188 MG/DL (74-106) H Calcium Level 8.6 MG/DL (8.5-10.1) Total Bilirubin 0.3 MG/DL (0.2-1.0) Aspartate Amino Transf (AST/SGOT) 15 U/L (15-37) Alanine Aminotransferase (ALT/SGPT) 20 U/L (12-78) Alkaline Phosphatase 106 U/L (46-116) Total Protein 7.1 G/DL (6.4-8.2) Albumin 2.7 G/DL (3.4-5.0) L Globulin 4.4 g/dL Albumin/Globulin Ratio 0.6 (1.0-2.7) L Microbiology Date/Time Source Procedure Growth Status 03/25/19 12:33 Nasopharynx - Final Complete 03/25/19 12:33 Nasopharynx - Final Complete Intake and Output 03/25/19 03/26/19 19:00 07:00 Intake Total 1027.351 ml 423.360 ml Output Total 600 ml Balance 1027.351 ml -176.640 ml Intake Oral 720 ml 120 ml IV Total 307.351 ml 303.360 ml Output Urine Total 600 ml # Voids 4 2 # Bowel Movements 1 Objective General: No acute distress, awake and alert HEENT: NCAT, sclera anicteric, PERRL, EOMI. Neck: Supple, no significant jugular venous distention, Lungs: Fair inspiratory effort, clear to auscultation bilaterally, no Wheeze or Rales. Heart: Regular rate and rhythm, normal S1/S2, no murmurs. Abdomen: soft, nontender, nondistended. Normoactive bowel sounds, Obesity. / Rectal: Refused and deferred. Extremities: No Cyanosis , clubbing or edema. Neuro: A&O x 3, Able to move all extremities Skin: warm, no rashes or lesions Psych: Normal mood and affect Assessment/Plan Assessment/Plan 1. Shortness of breath. 2. Chronic obstructive pulmonary disease, acute exacerbation. 3. Congestive heart failure, acute on chronic. 4. Cerebrovascular disease. 5. Coronary artery disease. 6. Hypertension. 7. Right hemiparesis. 8. Cardiomyopathy. 9. Hypothyroidism. 10. Hypercholesterolemia. TREATMENT: 1. Shortness of breath/chronic obstructive pulmonary disease. A Pulmonary consultation has been obtained with Dr. Halina Hameed. We will follow recommendation of Pulmonary. The patient is currently tolerating nasal cannula. Continue DuoNebs every four hours as needed. The patient has also been started on Domenic-Dur as well as IV solumedrol. 2. Congestive heart failure. Initial BNP was elevated to 4312. A Cardiology consultation has been obtained with Dr. Be. Continue Lasix as above. 3. Cerebrovascular disease/right hemiparesis. 4. History of coronary artery disease. 5. Hypertension. Continue Coreg and lisinopril as above. 6. Cardiomyopathy with ejection fraction of 30 to 35%. 7. Hypothyroidism. Continue Synthroid as above. 8. Hypercholesterolemia. HRCT chest Heparin Drip. Charly Sandhu MD Mar 26, 2019 16:27
--- NOTE | 2019-03-26 17:30 | Diagnostic Imaging Report ---
Clinical Indication: Cough, acute bronchitis, COPD Technique: Spiral acquisition obtained through the chest. No IV contrast utilized, per high resolution protocol. Axial 5 x 5 mm slices were reconstructed. Axial 1 mm thick slices were reconstructed using high resolution algorithm at 10 mm intervals. Multiplanar reconstructions generated. Total dose length product 1963 mGycm. CTDIvol(s) 52 mGy. Dose reduction achieved using automated exposure control Comparison: 07/27/2018 Findings: High-resolution images demonstrate minimal bronchial wall thickening bilaterally. Focal linear opacities are seen in the medial right middle lobe which are slightly more prominent currently, and in the inferolateral left upper lobe, less prominent than on the previous study. Interstitial and hazy parenchymal opacities are seen in the posterior medial right lower lobe, probably unchanged allowing for differences in degree of inspiration. A single tiny subpleural bleb is seen in the right lung apex and there is mild focal hyperinflation in the right lung apex. A small bulla is seen in the left costophrenic sulcus, also evident previously. No generalized interstitial septal thickening, bronchiectasis, nodularity, groundglass opacity, or honeycombing demonstrated. Patchy parenchymal opacities previously demonstrated in the left lower lobe are no longer evident. A calcified granuloma in the right lower lobe is again demonstrated. No infiltrates, effusions, or congestion demonstrated. The heart is upper limits of normal in size. There is a pericardial effusion again demonstrated. Prominent precarinal node is again demonstrated, measures 2.2 cm long axis dimension, not significantly changed from the prior study. No other mediastinal or hilar mass or adenopathy. Somewhat prominent prevascular space nodes are unchanged. The included thyroid demonstrates a subcentimeter right lobe nodule which is somewhat more conspicuous than on the prior exam. No axillary or chest wall mass or adenopathy. The included upper abdominal anatomy demonstrates arterial calcifications within the kidneys. Calcifications are seen within the pancreatic head. There are colonic diverticula. The bones are unremarkable. Impression: Right middle lobe and left lower lobe linear opacities, minimal, also previously demonstrated and likely reflecting postinflammatory changes Single tiny subpleural bleb in the right lung apex and minimal focal hyperinflation the right lung apex, may reflect early COPD changes Minimal bronchial wall thickening centrally No generalized interstitial process otherwise Unchanged 2.2 cm prominent precarinal node. No other evidence of mediastinal lymphadenopathy Subcentimeter right lobe thyroid nodule. No further follow-up necessary Evidence of old granulomatous disease in the right lower lobe The CT scanner at [facility] is accredited by the [employer] and the scans are performed using protocols designed to limit radiation exposure to as low as reasonably achievable to attain images of sufficient resolution adequate for diagnostic evaluation.
--- NOTE | 2019-03-26 19:08 | NUR ---
HAND-OFF: Report given to JERZY Rosa. Pt stable. RT called for treatment.
--- NOTE | 2019-03-26 19:10 | NUR ---
NURSE NOTES: Received report from JERZY Pearson. Patient is awake, lying in semi sandra's; resting comfortably. A/Ox4. Denies pain at this time. No signs of acute distress noted. Checked IV site and flushed. No erythema, bleeding or infiltration noted. Ongoing heparin drip with prescribed unit and rate. No signs of bleeding. Bed at lowest position, brakes on, [id number]. Call light within reach. Will continue to monitor.
--- NOTE | 2019-03-26 19:21 | Cardiology Progress Note ---
Assessment/Plan Assessment/Plan 1. Supraventricular tachycardia, possible AV reentry tachycardia,responded to adenosine. 2. Cardiomyopathy.previoulsy ef 30-35% 3. Congestive heart failure. 4. COPD tele person [id number] sinus no furth avrt had ct noted report all trop neg dc heparin pulm rxn contienu troprolo xl d/w dr miller Subjective Cardiovascular: Denies: chest pain, lightheadedness, palpitations Respiratory: Reports: cough; Denies: shortness of breath Gastrointestinal/Abdominal: Denies: abdominal pain Genitourinary: Denies: burning Objective Last 24 Hour Vital Signs Date Time Temp Pulse Resp B/P (MAP) Pulse Ox O2 Delivery O2 Flow Rate FiO2 03/26/19 16:00 97.7 61 18 150/78 (102) 93 03/26/19 15:18 75 03/26/19 14:10 97.7 68 18 148/84 (105) 93 03/26/19 13:00 81 18 100 Room Air 21 84 18 96 03/26/19 12:00 98.0 62 20 157/82 (107) 96 03/26/19 12:00 Room Air 03/26/19 12:00 65 03/26/19 09:11 67 03/26/19 09:10 144/72 03/26/19 09:10 67 144/72 03/26/19 08:00 Room Air 03/26/19 08:00 97.9 67 20 144/72 (96) 99 03/26/19 07:59 73 03/26/19 07:07 70 16 100 Room Air 21 72 16 97 03/26/19 04:00 Room Air 03/26/19 04:00 98.5 70 20 140/80 (100) 95 03/26/19 04:00 79 03/26/19 00:00 Room Air 03/26/19 00:00 81 03/26/19 00:00 98.0 70 20 133/75 (94) 96 03/25/19 20:36 147/75 03/25/19 20:00 98.1 72 20 147/75 (99) 95 03/25/19 20:00 Room Air 03/25/19 19:22 67 General Appearance: no apparent distress, alert Neck: no JVD Cardiovascular: normal rate Respiratory/Chest: rhonchi - bilaterally Abdomen: normal bowel sounds, non tender, soft Extremities: no swelling Intake and Output 03/25/19 03/26/19 18:59 06:59 Intake Total 1016.62783 ml 427.351 ml Output Total 600 ml Balance 1016.69847 ml -172.649 ml Intake Oral 720 ml 120 ml IV Total 296.04758 ml 307.351 ml Output Urine Total 600 ml # Voids 4 2 # Bowel Movements 1 Laboratory Tests Test 03/26/19 03:50 03/26/19 11:30 White Blood Count 16.0 K/UL (4.8-10.8) H Red Blood Count 3.50 M/UL (4.20-5.40) L Hemoglobin 10.8 G/DL (12.0-16.0) L Hematocrit 32.4 % (37.0-47.0) L Mean Corpuscular Volume 93 FL (80-99) Mean Corpuscular Hemoglobin 30.9 PG (27.0-31.0) Mean Corpuscular Hemoglobin Concent 33.3 G/DL (32.0-36.0) Red Cell Distribution Width 12.5 % (11.6-14.8) Platelet Count 224 K/UL (150-450) Mean Platelet Volume 6.8 FL (6.5-10.1) Neutrophils (%) (Auto) % (45.0-75.0) Lymphocytes (%) (Auto) % (20.0-45.0) Monocytes (%) (Auto) % (1.0-10.0) Eosinophils (%) (Auto) % (0.0-3.0) Basophils (%) (Auto) % (0.0-2.0) Differential Total Cells Counted 100 Neutrophils % (Manual) 85 % (45-75) H Lymphocytes % (Manual) 10 % (20-45) L Monocytes % (Manual) 5 % (1-10) Eosinophils % (Manual) 0 % (0-3) Basophils % (Manual) 0 % (0-2) Band Neutrophils 0 % (0-8) Platelet Estimate Adequate Platelet Morphology Normal Hypochromasia 1+ Activated Partial Thromboplast Time 97 SEC (23-33) H 78 SEC (23-33) H Sodium Level 139 MMOL/L (136-145) Potassium Level 3.8 MMOL/L (3.5-5.1) Chloride Level 105 MMOL/L (98-107) Carbon Dioxide Level 28 MMOL/L (21-32) Anion Gap 6 mmol/L (5-15) Blood Urea Nitrogen 18 mg/dL (7-18) Creatinine 1.1 MG/DL (0.55-1.30) Estimat Glomerular Filtration Rate > 60 mL/min (>60) Glucose Level 188 MG/DL (74-106) H Calcium Level 8.6 MG/DL (8.5-10.1) Total Bilirubin 0.3 MG/DL (0.2-1.0) Aspartate Amino Transf (AST/SGOT) 15 U/L (15-37) Alanine Aminotransferase (ALT/SGPT) 20 U/L (12-78) Alkaline Phosphatase 106 U/L (46-116) Total Protein 7.1 G/DL (6.4-8.2) Albumin 2.7 G/DL (3.4-5.0) L Globulin 4.4 g/dL Albumin/Globulin Ratio 0.6 (1.0-2.7) L Microbiology Date/Time Source Procedure Growth Status 03/25/19 12:33 Nasopharynx - Final Complete 03/25/19 12:33 Nasopharynx - Final Complete Juan Be MD Mar 26, 2019 19:21
[2019-03-26 21:24] LABS: HEMATOCRIT 33.1 % (37.0-47.0); HEMOGLOBIN 11.6 G/DL (12.0-16.0); MEAN CORPUSCULAR VOLUME 89 FL (80-99); PLATELET COUNT 230 K/UL (150-450); RED BLOOD COUNT 3.72 M/UL (4.20-5.40); RED CELL DISTRIBUTION WIDTH 11.3 % (11.6-14.8); WHITE BLOOD COUNT 17.2 K/UL (4.8-10.8)
[2019-03-26 21:27] LABS: NEUTROPHILS % (AUTO) 86.8 % (45.0-75.0)
[2019-03-26 21:28] LABS: BASOPHILS % (AUTO) 0.4 % (0.0-2.0); LYMPHOCYTES % (AUTO) 8.2 % (20.0-45.0); MONOCYTES % (AUTO) 4.6 % (1.0-10.0)
--- NOTE | 2019-03-26 21:46 | NUR ---
NURSE NOTES: Per Dr. Be, to discontinue heparin drip and PTT. Noted and carried out.
--- NOTE | 2019-03-26 21:47 | NUR ---
NURSE NOTES: Discontinued heparin drip. No signs of bleeding nor distress noted.
[2019-03-27] VITALS: BP 150/76
--- NOTE | 2019-03-27 00:09 | NUR ---
NURSE NOTES: Received lab result of troponin I 0.328 from [facility]. No complains of any pain. No signs of acute distress noted. Vital signs T=98.8, HR=91, RR=20, FF=880/89, O2 sat 98%. Will continue to monitor. Paged Dr. Be, awaiting for callback. Addendum: 03/27/19 at 0026 by Shelley Fonesca RN Wrong patient.
--- NOTE | 2019-03-27 03:35 | NUR ---
NURSE NOTES: Resting throughout the night. No significant change of condition noted. Will continue to monitor.
[2019-03-27] MEDS: Promethazine/Codeine 5ml UD ORAL PRN ×2 (03:50→16:36)
[2019-03-27 04:00] VITALS: BP 149/82
[2019-03-27] MEDS: Levothyroxine 25mcg tab ORAL SCH (06:04)
[2019-03-27] MEDS: Ipratropium 0.02% Inh Soln 2.5ml UD HHN SCH ×3 (07:03→19:19)
--- NOTE | 2019-03-27 07:20 | NUR ---
HAND-OFF: Report given to JERZY Gandhi. Plan of care endorsed.
--- NOTE | 2019-03-27 07:40 | NUR ---
NURSE NOTES: Received patient from Arleen Rosa. Patient is awake sitting up in bed eating her breakfast. No complain of pain or discomfort at this time. Fall precautions in place. Call loving within patients reached. will follow.
[2019-03-27 08:00] VITALS: BP 154/94
[2019-03-27] MEDS: Theophylline ER 100mg ORAL SCH ×2 (08:56→21:12)
[2019-03-27] MEDS: Lisinopril 20mg tab ORAL SCH ×2 (08:57→21:12)
[2019-03-27] MEDS: Metoprolol Succinate XL 25mg tab ORAL SCH (08:57)
[2019-03-27] MEDS: Furosemide 40mg tab ORAL SCH (08:57)
[2019-03-27] MEDS: Aspirin EC 81mg tab ORAL SCH (08:57)
[2019-03-27] MEDS: Spironolactone 25mg tab ORAL SCH (08:58)
[2019-03-27] MEDS: Digoxin 0.5mg/2ml Inj IVP SCH (08:58)
[2019-03-27 11:47] VITALS: BP 135/81
--- NOTE | 2019-03-27 12:27 | Infectious Diseases Prog Note ---
Assessment/Plan Assessment/Plan Assessment: Afebrile Leukocytosis; persistent (s/p steroids) -03/23 u/a no pyuria CHF exacerbation COPD exacerbation -CT chest: Right middle lobe and left lower lobe linear opacities, minimal, also previously demonstrated and likely reflecting postinflammatory changes. Single tiny subpleural bleb in the right lung apex and minimal focal hyperinflation the right lung apex, may reflect early COPD changes. Minimal bronchial wall thickening centrally. No generalized interstitial process otherwise, Unchanged 2.2 cm prominent precarinal node. No other evidence of mediastinal lymphadenopathy. Subcentimeter right lobe thyroid nodule. No further follow-up necessary Evidence of old granulomatous disease in the right lower lobe -03/25 CXR: Doubt acute process, but atelectasis or pleural fluid at the left lung base not completely excludable. Borderline cardiomegaly -CXR: The heart is borderline enlarged. Lungs and pleural spaces are clear. -influenza sc neg SVT BERENICE, improving CHF HTN obesity COPD former smoker cardiomyopathy EF 30-35% CVA w/ R hemiparesis (2008) Parkinson's disease HLD hypothyroidism Plan: -Start Azithromycin #04/25 for COPD exacerbation -f/u cx -Monitor CBC/CMP, temperatures -Cards f/u -aspiration precautions Thank you for this consultation. Will continue to follow along with you. Discussed with RN Subjective Allergies: Coded Allergies: NO KNOWN ALLERGIES (Verified Allergy, Unknown, 10/29/18) Subjective afebrile leukocytosis persistent Objective Vital Signs Last 24 Hour Vital Signs Date Time Temp Pulse Resp B/P (MAP) Pulse Ox O2 Delivery O2 Flow Rate FiO2 03/27/19 11:47 97.2 76 18 135/81 (99) 96 03/27/19 08:58 85 03/27/19 08:57 73 154/94 03/27/19 08:57 154/94 03/27/19 08:00 73 03/27/19 08:00 97.9 73 18 154/94 (114) 95 03/27/19 07:03 69 18 99 Room Air 21 68 16 94 03/27/19 04:00 83 03/27/19 04:00 97.5 69 19 149/82 (104) 97 03/27/19 00:00 97.0 71 20 150/76 (100) 94 03/27/19 00:00 70 03/26/19 21:00 Room Air 03/26/19 20:24 147/79 03/26/19 20:00 97.7 70 20 147/79 (101) 95 03/26/19 20:00 73 03/26/19 19:20 65 18 100 Room Air 21 63 18 100 03/26/19 16:00 97.7 61 18 150/78 (102) 93 03/26/19 15:18 75 03/26/19 14:10 97.7 68 18 148/84 (105) 93 03/26/19 13:00 81 18 100 Room Air 21 84 18 96 Height (Feet): 5 Height (Inches): 5.00 Weight (Pounds): 220 Objective GENERAL: The patient is well-developed and well-nourished obese female, in moderate respiratory distress. HEENT: Eyes, pupils are equal and responsive to light and accommodation. Extraocular movements are intact. NECK: Supple without lymphadenopathy. CHEST: Few wheezes in the bilateral bases with crackles at bilateral bases. CARDIOVASCULAR: Regular rhythm and rate. S1 and S2 normal without murmurs, rubs, or gallops. ABDOMEN: Soft, nontender, and nondistended. Positive bowel sounds. No hepatosplenomegaly. Currently, no rebound or guarding noted. EXTREMITIES: Negative for clubbing, cyanosis, edema. Microbiology Date/Time Source Procedure Growth Status 03/25/19 12:33 Nasopharynx - Final Complete 03/25/19 12:33 Nasopharynx - Final Complete Laboratory Tests Test 03/26/19 21:15 White Blood Count 17.2 K/UL (4.8-10.8) H Red Blood Count 3.72 M/UL (4.20-5.40) L Hemoglobin 11.6 G/DL (12.0-16.0) L Hematocrit 33.1 % (37.0-47.0) L Mean Corpuscular Volume 89 FL (80-99) Mean Corpuscular Hemoglobin 31.3 PG (27.0-31.0) H Mean Corpuscular Hemoglobin Concent 35.2 G/DL (32.0-36.0) Red Cell Distribution Width 11.3 % (11.6-14.8) L Platelet Count 230 K/UL (150-450) Mean Platelet Volume 6.3 FL (6.5-10.1) L Neutrophils (%) (Auto) 86.8 % (45.0-75.0) H Lymphocytes (%) (Auto) 8.2 % (20.0-45.0) L Monocytes (%) (Auto) 4.6 % (1.0-10.0) Eosinophils (%) (Auto) 0.0 % (0.0-3.0) Basophils (%) (Auto) 0.4 % (0.0-2.0) Current Medications Medications (Trade) Dose Ordered Sig/Marline Route PRN Reason Start Time Stop Time Status Last Admin Dose Admin Aspirin (Ecotrin) 81 mg DAILY ORAL 03/27/19 09:00 04/23/19 08:59 03/27/19 08:57 Clopidogrel Bisulfate (Plavix) 75 mg DAILY ORAL 03/27/19 09:00 04/23/19 08:59 03/27/19 08:56 Dextrose (Dextrose 50%) 25 ml Q30M PRN IV Hypoglycemia 03/26/19 14:30 04/22/19 21:29 Dextrose (Dextrose 50%) 50 ml Q30M PRN IV Hypoglycemia 03/26/19 14:30 04/22/19 21:29 Digoxin (Lanoxin) 0.25 mg DAILY IVP 03/27/19 09:00 04/23/19 08:59 03/27/19 08:58 Diltiazem HCl (Cardizem) 10 mg Q1H PRN IV heart rate more than 120, 03/26/19 14:10 04/25/19 14:09 Furosemide (Lasix) 40 mg DAILY ORAL 03/27/19 09:00 04/24/19 08:59 03/27/19 08:57 Ipratropium [place] (Atrovent) 500 mcg TIDRT HHN 03/26/19 19:00 03/30/19 12:59 03/27/19 07:03 Levothyroxine Sodium (Synthroid) 25 mcg ACBREAKFAST ORAL 03/27/19 06:30 04/23/19 06:29 03/27/19 06:04 Lidocaine (Xylocaine 1% MPF 5ml) 10 ml Q4H PRN HHN cough 03/26/19 14:11 04/25/19 14:10 Lisinopril (Prinivil) 20 mg Q12HR ORAL 03/26/19 21:00 04/23/19 20:59 03/27/19 08:57 Lorazepam (Ativan 2mg/ml 1ml) 0.5 mg Q4H PRN IV For Anxiety 03/26/19 14:11 04/02/19 14:10 Metoprolol Succinate (Toprol XL) 25 mg DAILY ORAL 03/27/19 09:00 04/24/19 08:59 03/27/19 08:57 Morphine Sulfate (Morphine Sulfate) 2 mg Q4H PRN IVP severe pain 7-10 03/26/19 14:11 04/02/19 14:10 Nitroglycerin (Ntg) 0.4 mg Q5M X 3 DOSES PRN SL Prn Chest Pain 03/26/19 14:11 04/25/19 14:10 Ondansetron HCl (Zofran) 4 mg Q6H PRN IVP Nausea & Vomiting 03/26/19 14:11 04/25/19 14:10 Promethazine HCl/ Codeine (Phenergan with Codeine) 5 ml Q6H PRN ORAL cough 03/26/19 14:11 04/25/19 14:10 03/27/19 03:50 Spironolactone (Aldactone) 25 mg DAILY ORAL 03/27/19 09:00 04/24/19 08:59 03/27/19 08:58 Temazepam (Restoril) 15 mg HSPRN PRN ORAL Insomnia 03/26/19 14:12 04/02/19 14:11 Theophylline (Domenic-Dur) 100 mg EVERY 12 HOURS ORAL 03/26/19 21:00 04/23/19 08:59 03/27/19 08:56 Heavenly Clark M.D. Mar 27, 2019 12:27
[2019-03-27] MEDS ORDERED: Azithromycin 250mg tab ORAL SCH (12:30)
--- NOTE | 2019-03-27 13:46 | NUR ---
PT Note PT ed completed, treatment initiated. Patient has muscle weakness, more on the RUE/LE. Patient is also SOB during and after gait training. Patient needs PT to increase her muscle strength and train on proper breathing techniques and instruct on energy conservation techniques to improve her safety in mobility and gait. Addendum: 03/27/19 at 1346 by ELVIRA CORTES PT Amended: Links added.
--- NOTE | 2019-03-27 14:37 | Internal Med Progress Note ---
Subjective Date of Service: Mar 27, 2019 Physician Name Antonio Anglin Attending Physician Charly Sandhu MD Current Medications Medications (Trade) Dose Ordered Sig/Marline Route PRN Reason Start Time Stop Time Status Last Admin Dose Admin Aspirin (Ecotrin) 81 mg DAILY ORAL 03/27/19 09:00 04/23/19 08:59 03/27/19 08:57 Azithromycin (Zithromax) 250 mg DAILY ORAL 03/28/19 09:00 04/04/19 08:59 Clopidogrel Bisulfate (Plavix) 75 mg DAILY ORAL 03/27/19 09:00 04/23/19 08:59 03/27/19 08:56 Dextrose (Dextrose 50%) 25 ml Q30M PRN IV Hypoglycemia 03/26/19 14:30 04/22/19 21:29 Dextrose (Dextrose 50%) 50 ml Q30M PRN IV Hypoglycemia 03/26/19 14:30 04/22/19 21:29 Digoxin (Lanoxin) 0.25 mg DAILY IVP 03/27/19 09:00 04/23/19 08:59 03/27/19 08:58 Diltiazem HCl (Cardizem) 10 mg Q1H PRN IV heart rate more than 120, 03/26/19 14:10 04/25/19 14:09 Furosemide (Lasix) 40 mg DAILY ORAL 03/27/19 09:00 04/24/19 08:59 03/27/19 08:57 Ipratropium [place] (Atrovent) 500 mcg TIDRT HHN 03/26/19 19:00 03/30/19 12:59 03/27/19 07:03 Levothyroxine Sodium (Synthroid) 25 mcg ACBREAKFAST ORAL 03/27/19 06:30 04/23/19 06:29 03/27/19 06:04 Lidocaine (Xylocaine 1% MPF 5ml) 10 ml Q4H PRN HHN cough 03/26/19 14:11 04/25/19 14:10 Lisinopril (Prinivil) 20 mg Q12HR ORAL 03/26/19 21:00 04/23/19 20:59 03/27/19 08:57 Lorazepam (Ativan 2mg/ml 1ml) 0.5 mg Q4H PRN IV For Anxiety 03/26/19 14:11 04/02/19 14:10 Metoprolol Succinate (Toprol XL) 25 mg DAILY ORAL 03/27/19 09:00 04/24/19 08:59 03/27/19 08:57 Morphine Sulfate (Morphine Sulfate) 2 mg Q4H PRN IVP severe pain 7-10 03/26/19 14:11 04/02/19 14:10 Nitroglycerin (Ntg) 0.4 mg Q5M X 3 DOSES PRN SL Prn Chest Pain 03/26/19 14:11 04/25/19 14:10 Ondansetron HCl (Zofran) 4 mg Q6H PRN IVP Nausea & Vomiting 03/26/19 14:11 04/25/19 14:10 Promethazine HCl/ Codeine (Phenergan with Codeine) 5 ml Q6H PRN ORAL cough 03/26/19 14:11 04/25/19 14:10 03/27/19 03:50 Spironolactone (Aldactone) 25 mg DAILY ORAL 03/27/19 09:00 04/24/19 08:59 03/27/19 08:58 Temazepam (Restoril) 15 mg HSPRN PRN ORAL Insomnia 03/26/19 14:12 04/02/19 14:11 Theophylline (Domenic-Dur) 100 mg EVERY 12 HOURS ORAL 03/26/19 21:00 04/23/19 08:59 03/27/19 08:56 Allergies: Coded Allergies: NO KNOWN ALLERGIES (Verified Allergy, Unknown, 10/29/18) ROS Limited/Unobtainable: No Constitutional: Reports: no symptoms HEENT: Reports: no symptoms Cardiovascular: Reports: no symptoms Respiratory: Reports: shortness of breath Gastrointestinal/Abdominal: Reports: no symptoms Genitourinary: Reports: no symptoms Neurologic/Psychiatric: Reports: no symptoms Subjective 68 YO F admitted with shortness of breath. Now CHF and COPD exacerbation. Cover for Int Xavier-DR Sandhu Objective Last Vital Signs Date Time Temp Pulse Resp B/P (MAP) Pulse Ox O2 Delivery O2 Flow Rate FiO2 03/27/19 11:47 97.2 76 18 135/81 (99) 96 03/27/19 07:03 Room Air 21 Laboratory Tests Test 03/26/19 21:15 White Blood Count 17.2 K/UL (4.8-10.8) H Red Blood Count 3.72 M/UL (4.20-5.40) L Hemoglobin 11.6 G/DL (12.0-16.0) L Hematocrit 33.1 % (37.0-47.0) L Mean Corpuscular Volume 89 FL (80-99) Mean Corpuscular Hemoglobin 31.3 PG (27.0-31.0) H Mean Corpuscular Hemoglobin Concent 35.2 G/DL (32.0-36.0) Red Cell Distribution Width 11.3 % (11.6-14.8) L Platelet Count 230 K/UL (150-450) Mean Platelet Volume 6.3 FL (6.5-10.1) L Neutrophils (%) (Auto) 86.8 % (45.0-75.0) H Lymphocytes (%) (Auto) 8.2 % (20.0-45.0) L Monocytes (%) (Auto) 4.6 % (1.0-10.0) Eosinophils (%) (Auto) 0.0 % (0.0-3.0) Basophils (%) (Auto) 0.4 % (0.0-2.0) Microbiology Date/Time Source Procedure Growth Status 03/25/19 12:33 Nasopharynx - Final Complete 03/25/19 12:33 Nasopharynx - Final Complete Intake and Output 03/26/19 03/27/19 19:00 07:00 Intake Total 679.75 ml 77.44 ml Output Total 350 ml Balance 329.75 ml 77.44 ml Intake Oral 560 ml IV Total 119.75 ml 77.44 ml Output Urine Total 350 ml # Voids 4 3 # Bowel Movements 1 Objective PHYSICAL EXAMINATION: GENERAL: The patient is well-developed and well-nourished obese female, in moderate respiratory distress. HEENT: Eyes, pupils are equal and responsive to light and accommodation. Extraocular movements are intact. NECK: Supple without lymphadenopathy. CHEST: Few wheezes in the bilateral bases with crackles at bilateral bases. CARDIOVASCULAR: Regular rhythm and rate. S1 and S2 normal without murmurs, rubs, or gallops. ABDOMEN: Soft, nontender, and nondistended. Positive bowel sounds. No hepatosplenomegaly. Currently, no rebound or guarding noted. EXTREMITIES: Negative for clubbing, cyanosis, edema. RECTAL/GENITAL: Not performed. NEUROLOGIC: Cranial nerves II through XII are grossly intact without focal deficits. Motor strength is 5/5 bilaterally. Deep tendon reflexes are 2+ plant Assessment/Plan Assessment/Plan ASSESSMENT: This is a 68-year-old female. 1. Shortness of breath. 2. Chronic obstructive pulmonary disease, acute exacerbation. 3. Congestive heart failure, acute on chronic. 4. Cerebrovascular disease. 5. Coronary artery disease. 6. Hypertension. 7. Right hemiparesis. 8. Cardiomyopathy. 9. Hypothyroidism. 10. Hypercholesterolemia. TREATMENT: 1. Shortness of breath/chronic obstructive pulmonary disease. A Pulmonary consultation has been obtained with Dr. Halina Hameed. We will follow recommendation of Pulmonary. The patient is currently tolerating nasal cannula. Continue DuoNebs every four hours as needed. The patient has also been started on Domenic-Dur as well as IV solumedrol. 2. Congestive heart failure. Initial BNP was elevated [place] 4312. A Cardiology consultation has been obtained with Dr. Be. Continue Lasix as above. 3. Cerebrovascular disease/right hemiparesis. 4. History of coronary artery disease. 5. Hypertension. Continue Coreg and lisinopril as above. 6. Cardiomyopathy with ejection fraction of 30 to 35%. 7. Hypothyroidism. Continue Synthroid as above. 8. Hypercholesterolemia. 9. ABX=Azithromycin Antonio Anglin MD Mar 27, 2019 14:36
[2019-03-27 15:37] VITALS: BP 130/79
[2019-03-27] MEDS ORDERED: Tubing IV Secondary IV ONE (15:49)
[2019-03-27] MEDS ORDERED: NS 275ml ONE (15:49)
--- NOTE | 2019-03-27 19:21 | NUR ---
HAND-OFF: Report given to Arleen Negro.Patient stable. Plan of care endorsed.
[2019-03-27 20:00] VITALS: BP 139/85
--- NOTE | 2019-03-27 21:04 | Pulmonology Progress Note ---
Assessment/Plan Problems: (1) Acute bronchitis (2) SVT (supraventricular tachycardia) (3) COPD (chronic obstructive pulmonary disease) (4) Acute kidney injury (5) Hemiparesis affecting right side as late effect of cerebrovascular accident (CVA) (6) Hypothyroidism (7) HTN (hypertension) Assessment/Plan no sign of tachycardia add Lidocain inhalation still coughing add Atrovent taper steroids f/u cardio recommendations, has been in sinus rhythm for some time now. symptomatic treatment Subjective ROS Limited/Unobtainable: No Interval Events: still coughing Constitutional: Reports: no symptoms HEENT: Repors: no symptoms Allergies: Coded Allergies: NO KNOWN ALLERGIES (Verified Allergy, Unknown, 10/29/18) Objective Last 24 Hour Vital Signs Date Time Temp Pulse Resp B/P (MAP) Pulse Ox O2 Delivery O2 Flow Rate FiO2 03/27/19 19:19 78 18 96 Room Air 21 78 18 92 03/27/19 16:00 83 03/27/19 15:37 97.7 82 18 130/79 (96) 97 03/27/19 11:47 97.2 76 18 135/81 (99) 96 03/27/19 11:43 69 03/27/19 08:58 85 03/27/19 08:57 73 154/94 03/27/19 08:57 154/94 03/27/19 08:00 73 03/27/19 08:00 97.9 73 18 154/94 (114) 95 03/27/19 07:03 69 18 99 Room Air 21 68 16 94 03/27/19 04:00 83 03/27/19 04:00 97.5 69 19 149/82 (104) 97 03/27/19 00:00 97.0 71 20 150/76 (100) 94 03/27/19 00:00 70 Intake and Output 03/26/19 03/27/19 19:00 07:00 Intake Total 679.75 ml 77.44 ml Output Total 350 ml Balance 329.75 ml 77.44 ml Intake Oral 560 ml IV Total 119.75 ml 77.44 ml Output Urine Total 350 ml # Voids 4 3 # Bowel Movements 1 Objective General Appearance: WD/WN, no apparent distress Lines, tubes and drains: peripheral HEENT: normocephalic, atraumatic Neck: non-tender, normal alignment Respiratory/Chest: chest wall non-tender, lungs clear Breasts: no masses Cardiovascular/Chest: normal peripheral pulses Abdomen: non tender Extremities: normal range of motion Skin Exam: normal pigmentation Microbiology Date/Time Source Procedure Growth Status 03/25/19 12:33 Nasopharynx - Final Complete 03/25/19 12:33 Nasopharynx - Final Complete Laboratory Tests 03/26/19 21:15: White Blood Count 17.2H, Red Blood Count 3.72L, Hemoglobin 11.6L, Hematocrit 33.1L, Mean Corpuscular Volume 89, Mean Corpuscular Hemoglobin 31.3H, Mean Corpuscular Hemoglobin Concent 35.2, Red Cell Distribution Width 11.3L, Platelet Count 230, Mean Platelet Volume 6.3L, Neutrophils (%) (Auto) 86.8H, Lymphocytes (%) (Auto) 8.2L, Monocytes (%) (Auto) 4.6, Eosinophils (%) (Auto) 0.0, Basophils (%) (Auto) 0.4 Current Medications Medications (Trade) Dose Ordered Sig/Marline Route PRN Reason Start Time Stop Time Status Last Admin Dose Admin Aspirin (Ecotrin) 81 mg DAILY ORAL 03/27/19 09:00 04/23/19 08:59 03/27/19 08:57 Azithromycin (Zithromax) 250 mg DAILY ORAL 03/28/19 09:00 04/04/19 08:59 Clopidogrel Bisulfate (Plavix) 75 mg DAILY ORAL 03/27/19 09:00 04/23/19 08:59 03/27/19 08:56 Dextrose (Dextrose 50%) 25 ml Q30M PRN IV Hypoglycemia 03/26/19 14:30 04/22/19 21:29 Dextrose (Dextrose 50%) 50 ml Q30M PRN IV Hypoglycemia 03/26/19 14:30 04/22/19 21:29 Digoxin (Lanoxin) 0.25 mg DAILY IVP 03/27/19 09:00 04/23/19 08:59 03/27/19 08:58 Diltiazem HCl (Cardizem) 10 mg Q1H PRN IV heart rate more than 120, 03/26/19 14:10 04/25/19 14:09 Furosemide (Lasix) 40 mg DAILY ORAL 03/27/19 09:00 04/24/19 08:59 03/27/19 08:57 Ipratropium [place] (Atrovent) 500 mcg TIDRT HHN 03/26/19 19:00 03/30/19 12:59 03/27/19 19:19 Levothyroxine Sodium (Synthroid) 25 mcg ACBREAKFAST ORAL 03/27/19 06:30 04/23/19 06:29 03/27/19 06:04 Lidocaine (Xylocaine 1% MPF 5ml) 10 ml Q4H PRN HHN cough 03/26/19 14:11 04/25/19 14:10 Lisinopril (Prinivil) 20 mg Q12HR ORAL 03/26/19 21:00 04/23/19 20:59 03/27/19 08:57 Lorazepam (Ativan 2mg/ml 1ml) 0.5 mg Q4H PRN IV For Anxiety 03/26/19 14:11 04/02/19 14:10 Metoprolol Succinate (Toprol XL) 25 mg DAILY ORAL 03/27/19 09:00 04/24/19 08:59 03/27/19 08:57 Morphine Sulfate (Morphine Sulfate) 2 mg Q4H PRN IVP severe pain 7-10 03/26/19 14:11 04/02/19 14:10 Nitroglycerin (Ntg) 0.4 mg Q5M X 3 DOSES PRN SL Prn Chest Pain 03/26/19 14:11 04/25/19 14:10 Ondansetron HCl (Zofran) 4 mg Q6H PRN IVP Nausea & Vomiting 03/26/19 14:11 04/25/19 14:10 Promethazine HCl/ Codeine (Phenergan with Codeine) 5 ml Q6H PRN ORAL cough 03/26/19 14:11 04/25/19 14:10 03/27/19 16:36 Spironolactone (Aldactone) 25 mg DAILY ORAL 03/27/19 09:00 04/24/19 08:59 03/27/19 08:58 Temazepam (Restoril) 15 mg HSPRN PRN ORAL Insomnia 03/26/19 14:12 04/02/19 14:11 Theophylline (Domenic-Dur) 100 mg EVERY 12 HOURS ORAL 03/26/19 21:00 04/23/19 08:59 03/27/19 08:56 Halina Hameed MD Mar 27, 2019 21:04
--- NOTE | 2019-03-27 21:51 | NUR ---
NURSE NOTES:Received patient from JERZY Gandhi, stable condition, AOx4, denies pain, ambulatory, right FA g20 & g 22 patent , asymptomatic, saline lock, bed low & locked, side rails upx2, call light within reach, will continue to monitor and reassess
--- NOTE | 2019-03-27 22:02 | Cardiology Progress Note ---
Assessment/Plan Assessment/Plan Her rhythm at present time is stable, the patient is comfortable,w ithotu respoiratory distress Subjective Subjective The patient reports feeling good, has somewhat slow responce Objective Last 24 Hour Vital Signs Date Time Temp Pulse Resp B/P (MAP) Pulse Ox O2 Delivery O2 Flow Rate FiO2 03/27/19 21:12 138/83 03/27/19 21:00 Room Air 03/27/19 20:00 97.9 83 20 139/85 (103) 94 03/27/19 19:19 78 18 96 Room Air 21 78 18 92 03/27/19 16:00 83 03/27/19 15:37 97.7 82 18 130/79 (96) 97 03/27/19 11:47 97.2 76 18 135/81 (99) 96 03/27/19 11:43 69 03/27/19 08:58 85 03/27/19 08:57 73 154/94 03/27/19 08:57 154/94 03/27/19 08:00 73 03/27/19 08:00 97.9 73 18 154/94 (114) 95 03/27/19 07:03 69 18 99 Room Air 21 68 16 94 03/27/19 04:00 83 03/27/19 04:00 97.5 69 19 149/82 (104) 97 03/27/19 00:00 97.0 71 20 150/76 (100) 94 03/27/19 00:00 70 General Appearance: other - strabismus EENT: pharynx normal Neck: supple, JVD Rhythm: NSR Cardiovascular: regular rhythm Respiratory/Chest: crackles/rales - at bases Abdomen: non tender Extremities: non-tender Intake and Output 03/26/19 03/27/19 19:00 07:00 Intake Total 679.75 ml 77.44 ml Output Total 350 ml Balance 329.75 ml 77.44 ml Intake Oral 560 ml IV Total 119.75 ml 77.44 ml Output Urine Total 350 ml # Voids 4 3 # Bowel Movements 1 Microbiology Date/Time Source Procedure Growth Status 03/25/19 12:33 Nasopharynx - Final Complete 03/25/19 12:33 Nasopharynx - Final Complete Sabina Aguero MD Mar 27, 2019 22:02
[2019-03-28] VITALS (8 sets, daily range): BP systolic 106–149; BP diastolic 61–93
[2019-03-28] MEDS: Promethazine/Codeine 5ml UD ORAL PRN ×2 (00:05→20:20)
[2019-03-28] MEDS: dilTIAZem HCl 25mg/5ml Inj IV PRN ×3 (04:10→08:27)
--- NOTE | 2019-03-28 04:10 | NUR ---
NURSE NOTES: patient is tachycardic 134-140, narrow QRS tachycardia, Cardizem PRN 10mg IVP given over 2 min. After Cardizem HR 87. Will continue to monitor
[2019-03-28] MEDS: Levothyroxine 25mcg tab ORAL SCH (05:59)
--- NOTE | 2019-03-28 06:37 | NUR ---
NURSE NOTES: Patient tachycardic HR 146. Cardizem 10mg IVP given over 2 min. will continue to monitor
--- NOTE | 2019-03-28 06:54 | NUR ---
NURSE NOTES: HR still elevated. 137 dr. Hameed notified , awaiting call back
--- NOTE | 2019-03-28 07:05 | NUR ---
NURSE NOTES: Dr Be made aware, awaiting call back
[2019-03-28] MEDS: Ipratropium 0.02% Inh Soln 2.5ml UD HHN SCH ×3 (07:11→19:24)
[2019-03-28 07:27] LABS: BASOPHILS % (AUTO) 0.6 % (0.0-2.0); EOSINOPHILS % (AUTO) 1.8 % (0.0-3.0); HEMATOCRIT 33.8 % (37.0-47.0); HEMOGLOBIN 11.3 G/DL (12.0-16.0); MEAN CORPUSCULAR VOLUME 93 FL (80-99); MONOCYTES % (AUTO) 6.1 % (1.0-10.0); NEUTROPHILS % (AUTO) 71.5 % (45.0-75.0); PLATELET COUNT 226 K/UL (150-450); RED BLOOD COUNT 3.64 M/UL (4.20-5.40); WHITE BLOOD COUNT 12.3 K/UL (4.8-10.8)
--- NOTE | 2019-03-28 07:33 | NUR ---
HAND-OFF: Report given to JERZY Toussaint, patient in stable condition, plan of care endorsed.
--- NOTE | 2019-03-28 07:35 | NUR ---
NURSE NOTES: Received report from Jeana/RN, Patient is awake lying semi-sandra's, patient is tachypneic. Sinus tachy (134) on stuffed casing tier. previous nurse called MD regarding ST. On room air. Able to make needs known, . IV on left FA patent, no bleeding or infiltration noted. Bed in low position and locked, Bed alarm engaged, side-rails up x3. All belonging and call light within reach. Encouraged to use call light when needed. Will continue plan of care.
[2019-03-28 07:53] LABS: ANION GAP 8 mmol/L (5-15); BLOOD UREA NITROGEN 24 mg/dL (7-18); CALCIUM 8.5 MG/DL (8.5-10.1); CARBON DIOXIDE 29 MMOL/L (21-32); CHLORIDE 105 MMOL/L (98-107); CREATININE 1.2 MG/DL (0.55-1.30); POTASSIUM 3.3 MMOL/L (3.5-5.1); SODIUM 141 MMOL/L (136-145)
[2019-03-28] MEDS: Furosemide 40mg tab ORAL SCH (08:25)
[2019-03-28] MEDS: Azithromycin 250mg tab ORAL SCH (08:25)
[2019-03-28] MEDS: Aspirin EC 81mg tab ORAL SCH (08:26)
[2019-03-28] MEDS: Theophylline ER 100mg ORAL SCH ×2 (08:26→20:20)
[2019-03-28] MEDS: Spironolactone 25mg tab ORAL SCH (08:26)
[2019-03-28] MEDS: Lisinopril 20mg tab ORAL SCH ×2 (08:26→20:20)
[2019-03-28] MEDS: Digoxin 0.5mg/2ml Inj IVP SCH (08:27)
[2019-03-28] MEDS: Metoprolol Succinate XL 25mg tab ORAL SCH (08:27)
--- NOTE | 2019-03-28 14:36 | NUR ---
PT Note Patient has had several episodes of tachycardia this AM. Will hold off on PT today and check again in AM.
--- NOTE | 2019-03-28 15:57 | Internal Med Progress Note ---
Subjective Date of Service: Mar 28, 2019 Physician Name Antonio Anglin Attending Physician Charly Sandhu MD Current Medications Medications (Trade) Dose Ordered Sig/Marline Route PRN Reason Start Time Stop Time Status Last Admin Dose Admin Aspirin (Ecotrin) 81 mg DAILY ORAL 03/27/19 09:00 04/23/19 08:59 03/28/19 08:26 Azithromycin (Zithromax) 250 mg DAILY ORAL 03/28/19 09:00 04/04/19 08:59 03/28/19 08:25 Clopidogrel Bisulfate (Plavix) 75 mg DAILY ORAL 03/27/19 09:00 04/23/19 08:59 03/28/19 08:25 Dextrose (Dextrose 50%) 25 ml Q30M PRN IV Hypoglycemia 03/26/19 14:30 04/22/19 21:29 Dextrose (Dextrose 50%) 50 ml Q30M PRN IV Hypoglycemia 03/26/19 14:30 04/22/19 21:29 Digoxin (Lanoxin) 0.25 mg DAILY IVP 03/27/19 09:00 04/23/19 08:59 03/28/19 08:27 Diltiazem HCl (Cardizem) 10 mg Q1H PRN IV heart rate more than 120, 03/26/19 14:10 04/25/19 14:09 03/28/19 08:27 Furosemide (Lasix) 40 mg DAILY ORAL 03/27/19 09:00 04/24/19 08:59 03/28/19 08:25 Ipratropium [place] (Atrovent) 500 mcg TIDRT HHN 03/26/19 19:00 03/30/19 12:59 03/28/19 12:52 Levothyroxine Sodium (Synthroid) 25 mcg ACBREAKFAST ORAL 03/27/19 06:30 04/23/19 06:29 03/28/19 05:59 Lidocaine (Xylocaine 1% MPF 5ml) 10 ml Q4H PRN HHN cough 03/26/19 14:11 04/25/19 14:10 Lisinopril (Prinivil) 20 mg Q12HR ORAL 03/26/19 21:00 04/23/19 20:59 03/28/19 08:26 Lorazepam (Ativan 2mg/ml 1ml) 0.5 mg Q4H PRN IV For Anxiety 03/26/19 14:11 04/02/19 14:10 Metoprolol Succinate (Toprol XL) 25 mg DAILY ORAL 03/27/19 09:00 04/24/19 08:59 03/28/19 08:27 Morphine Sulfate (Morphine Sulfate) 2 mg Q4H PRN IVP severe pain 7-10 03/26/19 14:11 04/02/19 14:10 Nitroglycerin (Ntg) 0.4 mg Q5M X 3 DOSES PRN SL Prn Chest Pain 03/26/19 14:11 04/25/19 14:10 Ondansetron HCl (Zofran) 4 mg Q6H PRN IVP Nausea & Vomiting 03/26/19 14:11 04/25/19 14:10 Promethazine HCl/ Codeine (Phenergan with Codeine) 5 ml Q6H PRN ORAL cough 03/26/19 14:11 04/25/19 14:10 03/28/19 00:05 Spironolactone (Aldactone) 25 mg DAILY ORAL 03/27/19 09:00 04/24/19 08:59 03/28/19 08:26 Temazepam (Restoril) 15 mg HSPRN PRN ORAL Insomnia 03/26/19 14:12 04/02/19 14:11 Theophylline (Domenic-Dur) 100 mg EVERY 12 HOURS ORAL 03/26/19 21:00 04/23/19 08:59 03/28/19 08:26 Allergies: Coded Allergies: NO KNOWN ALLERGIES (Verified Allergy, Unknown, 10/29/18) ROS Limited/Unobtainable: No Constitutional: Reports: no symptoms HEENT: Reports: no symptoms Cardiovascular: Reports: no symptoms Respiratory: Reports: shortness of breath Gastrointestinal/Abdominal: Reports: no symptoms Genitourinary: Reports: no symptoms Neurologic/Psychiatric: Reports: no symptoms Subjective 68 YO F admitted with shortness of breath. Now CHF and COPD exacerbation. Cover for Int Xavier-DR Sandhu Objective Last Vital Signs Date Time Temp Pulse Resp B/P (MAP) Pulse Ox O2 Delivery O2 Flow Rate FiO2 03/28/19 13:02 88 18 98 Nasal Cannula 2.0 28 86 18 94 03/28/19 12:00 98.2 134/78 (96) Laboratory Tests Test 03/28/19 05:40 White Blood Count 12.3 K/UL (4.8-10.8) H Red Blood Count 3.64 M/UL (4.20-5.40) L Hemoglobin 11.3 G/DL (12.0-16.0) L Hematocrit 33.8 % (37.0-47.0) L Mean Corpuscular Volume 93 FL (80-99) Mean Corpuscular Hemoglobin 31.1 PG (27.0-31.0) H Mean Corpuscular Hemoglobin Concent 33.4 G/DL (32.0-36.0) Red Cell Distribution Width 13.0 % (11.6-14.8) Platelet Count 226 K/UL (150-450) Mean Platelet Volume 6.5 FL (6.5-10.1) Neutrophils (%) (Auto) 71.5 % (45.0-75.0) Lymphocytes (%) (Auto) 20.0 % (20.0-45.0) Monocytes (%) (Auto) 6.1 % (1.0-10.0) Eosinophils (%) (Auto) 1.8 % (0.0-3.0) Basophils (%) (Auto) 0.6 % (0.0-2.0) Sodium Level 141 MMOL/L (136-145) Potassium Level 3.3 MMOL/L (3.5-5.1) L Chloride Level 105 MMOL/L (98-107) Carbon Dioxide Level 29 MMOL/L (21-32) Anion Gap 8 mmol/L (5-15) Blood Urea Nitrogen 24 mg/dL (7-18) H Creatinine 1.2 MG/DL (0.55-1.30) Estimat Glomerular Filtration Rate 54.5 mL/min (>60) Glucose Level 120 MG/DL (74-106) H Calcium Level 8.5 MG/DL (8.5-10.1) Intake and Output 03/27/19 03/28/19 19:00 07:00 Intake Total 730 ml 100 ml Balance 730 ml 100 ml Intake Oral 730 ml 100 ml # Voids 3 2 Objective PHYSICAL EXAMINATION: GENERAL: The patient is well-developed and well-nourished obese female, in moderate respiratory distress. HEENT: Eyes, pupils are equal and responsive to light and accommodation. Extraocular movements are intact. NECK: Supple without lymphadenopathy. CHEST: Few wheezes in the bilateral bases with crackles at bilateral bases. CARDIOVASCULAR: Regular rhythm and rate. S1 and S2 normal without murmurs, rubs, or gallops. ABDOMEN: Soft, nontender, and nondistended. Positive bowel sounds. No hepatosplenomegaly. Currently, no rebound or guarding noted. EXTREMITIES: Negative for clubbing, cyanosis, edema. RECTAL/GENITAL: Not performed. NEUROLOGIC: Cranial nerves II through XII are grossly intact without focal deficits. Motor strength is 5/5 bilaterally. Deep tendon reflexes are 2+ plant Assessment/Plan Assessment/Plan ASSESSMENT: This is a 68-year-old female. 1. Shortness of breath. 2. Chronic obstructive pulmonary disease, acute exacerbation. 3. Congestive heart failure, acute on chronic. 4. Cerebrovascular disease. 5. Coronary artery disease. 6. Hypertension. 7. Right hemiparesis. 8. Cardiomyopathy. 9. Hypothyroidism. 10. Hypercholesterolemia. TREATMENT: 1. Shortness of breath/chronic obstructive pulmonary disease. A Pulmonary consultation has been obtained with Dr. Halina aHmeed. We will follow recommendation of Pulmonary. The patient is currently tolerating nasal cannula. Continue DuoNebs every four hours as needed. The patient has also been started on Domenic-Dur as well as IV solumedrol. 2. Congestive heart failure. Initial BNP was elevated to 4312. A Cardiology consultation has been obtained with Dr. Be. Continue Lasix as above. 3. Cerebrovascular disease/right hemiparesis. 4. History of coronary artery disease. 5. Hypertension. Continue Coreg and lisinopril as above. 6. Cardiomyopathy with ejection fraction of 30 to 35%. 7. Hypothyroidism. Continue Synthroid as above. 8. Hypercholesterolemia. 9. ABX=Azithromycin Antonio Anglin MD Mar 28, 2019 15:56
--- NOTE | 2019-03-28 17:50 | Cardiology Progress Note ---
Assessment/Plan Assessment/Plan no evidence of SVT, she is stable, no arrhythmia Subjective Subjective denies chest pain or dyspnea, is playing game son her telephone Objective Last 24 Hour Vital Signs Date Time Temp Pulse Resp B/P (MAP) Pulse Ox O2 Delivery O2 Flow Rate FiO2 03/28/19 16:00 71 03/28/19 16:00 98.4 76 18 143/93 (110) 96 03/28/19 13:02 88 18 98 Nasal Cannula 2.0 28 86 18 94 03/28/19 12:00 98.2 76 18 134/78 (96) 99 03/28/19 12:00 84 03/28/19 08:27 137 110/72 03/28/19 08:27 137 110/72 03/28/19 08:27 137 03/28/19 08:26 110/72 03/28/19 08:00 138 03/28/19 08:00 97.7 137 18 110/72 (85) 94 03/28/19 07:21 82 18 95 Nasal Cannula 2.0 28 83 16 93 03/28/19 06:37 146 106/71 03/28/19 06:37 146 106/71 (83) 03/28/19 04:11 87 03/28/19 04:10 136 114/84 03/28/19 04:10 136 114/84 (94) 03/28/19 04:00 113 03/28/19 04:00 97.7 140 19 120/75 (90) 93 03/28/19 00:00 88 03/28/19 00:00 97.3 80 18 149/71 (97) 93 03/27/19 21:12 138/83 03/27/19 21:00 Room Air 03/27/19 20:00 79 03/27/19 20:00 97.9 83 20 139/85 (103) 94 03/27/19 19:19 78 18 96 Room Air 21 78 18 92 General Appearance: lethargic - mildly, EENT: other - facial droop Neck: no JVD Rhythm: NSR Cardiovascular: regular rhythm Respiratory/Chest: crackles/rales Abdomen: soft Extremities: normal capillary refill Intake and Output 03/27/19 03/28/19 19:00 07:00 Intake Total 730 ml 100 ml Balance 730 ml 100 ml Intake Oral 730 ml 100 ml # Voids 3 2 Laboratory Tests Test 03/28/19 05:40 White Blood Count 12.3 K/UL (4.8-10.8) H Red Blood Count 3.64 M/UL (4.20-5.40) L Hemoglobin 11.3 G/DL (12.0-16.0) L Hematocrit 33.8 % (37.0-47.0) L Mean Corpuscular Volume 93 FL (80-99) Mean Corpuscular Hemoglobin 31.1 PG (27.0-31.0) H Mean Corpuscular Hemoglobin Concent 33.4 G/DL (32.0-36.0) Red Cell Distribution Width 13.0 % (11.6-14.8) Platelet Count 226 K/UL (150-450) Mean Platelet Volume 6.5 FL (6.5-10.1) Neutrophils (%) (Auto) 71.5 % (45.0-75.0) Lymphocytes (%) (Auto) 20.0 % (20.0-45.0) Monocytes (%) (Auto) 6.1 % (1.0-10.0) Eosinophils (%) (Auto) 1.8 % (0.0-3.0) Basophils (%) (Auto) 0.6 % (0.0-2.0) Sodium Level 141 MMOL/L (136-145) Potassium Level 3.3 MMOL/L (3.5-5.1) L Chloride Level 105 MMOL/L (98-107) Carbon Dioxide Level 29 MMOL/L (21-32) Anion Gap 8 mmol/L (5-15) Blood Urea Nitrogen 24 mg/dL (7-18) H Creatinine 1.2 MG/DL (0.55-1.30) Estimat Glomerular Filtration Rate 54.5 mL/min (>60) Glucose Level 120 MG/DL (74-106) H Calcium Level 8.5 MG/DL (8.5-10.1) Sabina Aguero MD Mar 28, 2019 17:50
--- NOTE | 2019-03-28 19:13 | NUR ---
HAND-OFF: Report given to Abi/TAO, Patient is in stable condition, awake lying semi-sandra's, no acute distress noted. Sinus rhythm on manager cardiac cath. Endorsed plan of care.
--- NOTE | 2019-03-28 19:30 | NUR ---
NURSE NOTES: RECEIVED PATIENT LYING IN BED, AWAKE, ALERT/ORIENTED TO PERSON/PLACE/PURPOSE. NO SIGNS AND SYMPTOMS OF ACUTE CARDIO RESPIRATORY DISTRESS/SHORTNESS OF BREATH, NO PERIPHERAL EDEMA NOTED, DENIES CHEST PAIN. SINUS RHYTHM ON APPLIQUE SEWER. NO COMPLAINT OF GI DISCOMFORT, NO NAUSEA/VOMITING. SIDE RAILS UP X2, BED IN LOWEST POSITION FOR SAFETY, ENCOURAGED PATIENT TO UTILIZE CALL LIGHT FOR ASSISTANCE, VERBALIZED UNDERSTANDING. CONTINUE WITH CURRENT PLAN OF CARE. NAD.
--- NOTE | 2019-03-28 21:25 | Pulmonology Progress Note ---
Assessment/Plan Problems: (1) Acute bronchitis (2) SVT (supraventricular tachycardia) (3) COPD (chronic obstructive pulmonary disease) (4) Acute kidney injury (5) Hemiparesis affecting right side as late effect of cerebrovascular accident (CVA) (6) Hypothyroidism (7) HTN (hypertension) Assessment/Plan no arrhythmias doing better add Atrovent taper steroids f/u cardio recommendations, has been in sinus rhythm for some time now. symptomatic treatment all reviewed Subjective Interval Events: slightly better, no SOB Allergies: Coded Allergies: NO KNOWN ALLERGIES (Verified Allergy, Unknown, 10/29/18) Objective Last 24 Hour Vital Signs Date Time Temp Pulse Resp B/P (MAP) Pulse Ox O2 Delivery O2 Flow Rate FiO2 03/28/19 21:00 Room Air 03/28/19 20:20 128/72 03/28/19 20:00 97.8 74 16 128/61 (83) 97 03/28/19 20:00 74 03/28/19 19:24 88 18 98 Nasal Cannula 2.0 28 79 18 96 03/28/19 16:00 71 03/28/19 16:00 98.4 76 18 143/93 (110) 96 03/28/19 13:02 88 18 98 Nasal Cannula 2.0 28 86 18 94 03/28/19 12:00 98.2 76 18 134/78 (96) 99 03/28/19 12:00 84 03/28/19 08:27 137 110/72 03/28/19 08:27 137 110/72 03/28/19 08:27 137 03/28/19 08:26 110/72 03/28/19 08:00 138 03/28/19 08:00 97.7 137 18 110/72 (85) 94 03/28/19 07:21 82 18 95 Nasal Cannula 2.0 28 83 16 93 03/28/19 06:37 146 106/71 03/28/19 06:37 146 106/71 (83) 03/28/19 04:11 87 03/28/19 04:10 136 114/84 03/28/19 04:10 136 114/84 (94) 03/28/19 04:00 113 03/28/19 04:00 97.7 140 19 120/75 (90) 93 03/28/19 00:00 88 12/8/19 00:00 97.3 80 18 149/71 (97) 93 Intake and Output 03/27/19 03/28/19 19:00 07:00 Intake Total 730 ml 100 ml Balance 730 ml 100 ml Intake Oral 730 ml 100 ml # Voids 3 2 Objective General Appearance: WD/WN, no apparent distress Lines, tubes and drains: peripheral HEENT: normocephalic, atraumatic Neck: non-tender, normal alignment Respiratory/Chest: chest wall non-tender, lungs clear Breasts: no masses Cardiovascular/Chest: normal peripheral pulses Abdomen: non tender Extremities: normal range of motion Skin Exam: normal pigmentation Laboratory Tests 03/28/19 05:40: White Blood Count 12.3H, Red Blood Count 3.64L, Hemoglobin 11.3L, Hematocrit 33.8L, Mean Corpuscular Volume 93, Mean Corpuscular Hemoglobin 31.1H, Mean Corpuscular Hemoglobin Concent 33.4, Red Cell Distribution Width 13.0, Platelet Count 226, Mean Platelet Volume 6.5, Neutrophils (%) (Auto) 71.5, Lymphocytes (% ) (Auto) 20.0, Monocytes (%) (Auto) 6.1, Eosinophils (%) (Auto) 1.8, Basophils ( %) (Auto) 0.6, Sodium Level 141, Potassium Level 3.3L, Chloride Level 105, Carbon Dioxide Level 29, Anion Gap 8, Blood Urea Nitrogen 24H, Creatinine 1.2, Estimat Glomerular Filtration Rate 54.5, Glucose Level 120H, Calcium Level 8.5 Current Medications Medications (Trade) Dose Ordered Sig/Marline Route PRN Reason Start Time Stop Time Status Last Admin Dose Admin Aspirin (Ecotrin) 81 mg DAILY ORAL 03/27/19 09:00 04/23/19 08:59 03/28/19 08:26 Azithromycin (Zithromax) 250 mg DAILY ORAL 03/28/19 09:00 04/04/19 08:59 03/28/19 08:25 Clopidogrel Bisulfate (Plavix) 75 mg DAILY ORAL 03/27/19 09:00 04/23/19 08:59 03/28/19 08:25 Dextrose (Dextrose 50%) 25 ml Q30M PRN IV Hypoglycemia 03/26/19 14:30 04/22/19 21:29 Dextrose (Dextrose 50%) 50 ml Q30M PRN IV Hypoglycemia 03/26/19 14:30 04/22/19 21:29 Digoxin (Lanoxin) 0.25 mg DAILY IVP 03/27/19 09:00 04/23/19 08:59 03/28/19 08:27 Diltiazem HCl (Cardizem) 10 mg Q1H PRN IV heart rate more than 120, 03/26/19 14:10 04/25/19 14:09 03/28/19 08:27 Furosemide (Lasix) 40 mg DAILY ORAL 03/27/19 09:00 04/24/19 08:59 03/28/19 08:25 Ipratropium [place] (Atrovent) 500 mcg TIDRT HHN 03/26/19 19:00 03/30/19 12:59 03/28/19 19:24 Levothyroxine Sodium (Synthroid) 25 mcg ACBREAKFAST ORAL 03/27/19 06:30 04/23/19 06:29 03/28/19 05:59 Lidocaine (Xylocaine 1% MPF 5ml) 10 ml Q4H PRN HHN cough 03/26/19 14:11 04/25/19 14:10 Lisinopril (Prinivil) 20 mg Q12HR ORAL 03/26/19 21:00 04/23/19 20:59 03/28/19 20:20 Lorazepam (Ativan 2mg/ml 1ml) 0.5 mg Q4H PRN IV For Anxiety 03/26/19 14:11 04/02/19 14:10 Metoprolol Succinate (Toprol XL) 25 mg DAILY ORAL 03/27/19 09:00 04/24/19 08:59 03/28/19 08:27 Morphine Sulfate (Morphine Sulfate) 2 mg Q4H PRN IVP severe pain 7-10 03/26/19 14:11 04/02/19 14:10 Nitroglycerin (Ntg) 0.4 mg Q5M X 3 DOSES PRN SL Prn Chest Pain 03/26/19 14:11 04/25/19 14:10 Ondansetron HCl (Zofran) 4 mg Q6H PRN IVP Nausea & Vomiting 03/26/19 14:11 04/25/19 14:10 Promethazine HCl/ Codeine (Phenergan with Codeine) 5 ml Q6H PRN ORAL cough 03/26/19 14:11 04/25/19 14:10 03/28/19 20:20 Spironolactone (Aldactone) 25 mg DAILY ORAL 03/27/19 09:00 04/24/19 08:59 03/28/19 08:26 Temazepam (Restoril) 15 mg HSPRN PRN ORAL Insomnia 03/26/19 14:12 04/02/19 14:11 Theophylline (Domenic-Dur) 100 mg EVERY 12 HOURS ORAL 03/26/19 21:00 04/23/19 08:59 03/28/19 20:20 Halina Hameed MD Mar 28, 2019 21:25
--- NOTE | 2019-03-28 23:19 | NUR ---
NURSE NOTES: RESTING WELL ON ROUNDS, NO SIGNS AND SYMPTOMS OF DISTRESS.
[2019-03-29] VITALS: BP 141/69
[2019-03-29 04:00] VITALS: BP 131/76
--- NOTE | 2019-03-29 05:57 | NUR ---
NURSE NOTES: RESTED WELL, NO SIGNIFICANT CHANGE OF CONDITION NOTED THROUGHOUT THE NIGHT.SAFETY MAINTAINED. NAD.
[2019-03-29 06:28] LABS: BASOPHILS % (AUTO) 0.4 % (0.0-2.0); HEMATOCRIT 33.6 % (37.0-47.0); LYMPHOCYTES % (AUTO) 19.9 % (20.0-45.0); MEAN CORPUSCULAR VOLUME 93 FL (80-99); MONOCYTES % (AUTO) 5.9 % (1.0-10.0); NEUTROPHILS % (AUTO) 71.9 % (45.0-75.0); PLATELET COUNT 213 K/UL (150-450); RED CELL DISTRIBUTION WIDTH 12.7 % (11.6-14.8); WHITE BLOOD COUNT 12.1 K/UL (4.8-10.8)
[2019-03-29] MEDS: Levothyroxine 25mcg tab ORAL SCH (06:39)
[2019-03-29] MEDS: Ipratropium 0.02% Inh Soln 2.5ml UD HHN SCH ×2 (06:51→13:37)
[2019-03-29 06:58] LABS: ANION GAP 8 mmol/L (5-15); BLOOD UREA NITROGEN 19 mg/dL (7-18); CALCIUM 8.6 MG/DL (8.5-10.1); CARBON DIOXIDE 28 MMOL/L (21-32); CHLORIDE 104 MMOL/L (98-107); CREATININE 1.2 MG/DL (0.55-1.30); POTASSIUM 3.7 MMOL/L (3.5-5.1); SODIUM 140 MMOL/L (136-145)
[2019-03-29 08:28] VITALS: BP 134/72
[2019-03-29] MEDS: Digoxin 0.5mg/2ml Inj IVP SCH (08:49)
[2019-03-29] MEDS: Lisinopril 20mg tab ORAL SCH (08:50)
[2019-03-29] MEDS: Aspirin EC 81mg tab ORAL SCH (08:51)
[2019-03-29] MEDS: Furosemide 40mg tab ORAL SCH (08:51)
[2019-03-29] MEDS: Spironolactone 25mg tab ORAL SCH (08:51)
[2019-03-29] MEDS: Metoprolol Succinate XL 25mg tab ORAL SCH (08:51)
[2019-03-29] MEDS: Azithromycin 250mg tab ORAL SCH (08:51)
[2019-03-29] MEDS: Theophylline ER 100mg ORAL SCH (08:51)
--- NOTE | 2019-03-29 09:11 | NUR ---
Awake in bed. Conversant, responds appropriately, able to make needs known. anxious to go home, verbalized understanding of Safety Precautions. reminded to call for assistance if needed.
[2019-03-29 11:22] VITALS: BP 130/68
--- NOTE | 2019-03-29 12:35 | NUR ---
CASE MANAGEMENT:REVIEW 03/29/19 SI: ACUTE BRONCHITIS SVT. COPD. BERENICE 98.8 72 18 130/68 95% ON RA WBC+12.1 H/H-11.0/33.6 IS: AZITHROMYCIN PO QD ASA PO QD PLAVIX PO QD IV DIGOXIN QD LASIX PO QD TOPROL PO QD ALDACTONE PO QD LISINOPRIL PO Q12 THEOPHYLLINE PO Q12 : TELEMETRY STATUS DCP: FROM HOME
--- NOTE | 2019-03-29 12:53 | Pulmonology Progress Note ---
Assessment/Plan Problems: (1) Acute bronchitis (2) SVT (supraventricular tachycardia) (3) COPD (chronic obstructive pulmonary disease) (4) Acute kidney injury (5) Hemiparesis affecting right side as late effect of cerebrovascular accident (CVA) (6) Hypothyroidism (7) HTN (hypertension) Assessment/Plan wants to go home doing better add Atrovent taper steroids f/u cardio recommendations, has been in sinus rhythm for some time now. symptomatic treatment all reviewed med/recon done prescription for Medrol given Subjective ROS Limited/Unobtainable: No Constitutional: Reports: no symptoms HEENT: Repors: no symptoms Respiratory: Reports: no symptoms Allergies: Coded Allergies: NO KNOWN ALLERGIES (Verified Allergy, Unknown, 10/29/18) Objective Last 24 Hour Vital Signs Date Time Temp Pulse Resp B/P (MAP) Pulse Ox O2 Delivery O2 Flow Rate FiO2 03/29/19 12:19 72 03/29/19 11:22 98.8 72 18 130/68 (88) 95 69 03/29/19 09:09 Room Air 03/29/19 08:51 78 138/78 03/29/19 08:50 134/78 03/29/19 08:49 78 03/29/19 08:31 88 03/29/19 08:28 98.8 83 18 134/72 (92) 94 82 03/29/19 04:00 97.9 78 18 131/76 (94) 95 03/29/19 04:00 78 03/29/19 00:00 73 03/29/19 00:00 97.7 73 18 141/69 (93) 98 03/28/19 21:00 Room Air 03/28/19 20:20 128/72 03/28/19 20:00 97.8 74 16 128/61 (83) 97 03/28/19 20:00 74 03/28/19 19:24 88 18 98 Nasal Cannula 2.0 28 79 18 96 03/28/19 16:00 71 03/28/19 16:00 98.4 76 18 143/93 (110) 96 03/28/19 13:02 88 18 98 Nasal Cannula 2.0 28 86 18 94 Intake and Output 03/28/19 03/29/19 19:00 07:00 Intake Total 720 ml 480 ml Output Total 500 ml Balance 220 ml 480 ml Intake Oral 720 ml 480 ml Output Urine Total 500 ml # Voids 1 # Bowel Movements 1 Objective General Appearance: WD/WN, no apparent distress Lines, tubes and drains: peripheral HEENT: normocephalic, atraumatic Neck: non-tender, normal alignment Respiratory/Chest: chest wall non-tender, lungs clear Breasts: no masses Cardiovascular/Chest: normal peripheral pulses Abdomen: non tender Extremities: normal range of motion Skin Exam: normal pigmentation Laboratory Tests 03/29/19 05:19: White Blood Count 12.1H, Red Blood Count 3.60L, Hemoglobin 11.0L, Hematocrit 33.6L, Mean Corpuscular Volume 93, Mean Corpuscular Hemoglobin 30.5, Mean Corpuscular Hemoglobin Concent 32.7, Red Cell Distribution Width 12.7, Platelet Count 213, Mean Platelet Volume 6.8, Neutrophils (%) (Auto) 71.9, Lymphocytes (% ) (Auto) 19.9L, Monocytes (%) (Auto) 5.9, Eosinophils (%) (Auto) 2.0, Basophils (%) (Auto) 0.4, Sodium Level 140, Potassium Level 3.7, Chloride Level 104, Carbon Dioxide Level 28, Anion Gap 8, Blood Urea Nitrogen 19H, Creatinine 1.2, Estimat Glomerular Filtration Rate 54.5, Glucose Level 169H, Calcium Level 8.6 Current Medications Medications (Trade) Dose Ordered Sig/Marline Route PRN Reason Start Time Stop Time Status Last Admin Dose Admin Aspirin (Ecotrin) 81 mg DAILY ORAL 03/27/19 09:00 04/23/19 08:59 03/29/19 08:51 Azithromycin (Zithromax) 250 mg DAILY ORAL 03/28/19 09:00 04/04/19 08:59 03/29/19 08:51 Clopidogrel Bisulfate (Plavix) 75 mg DAILY ORAL 03/27/19 09:00 04/23/19 08:59 03/29/19 08:51 Dextrose (Dextrose 50%) 25 ml Q30M PRN IV Hypoglycemia 03/26/19 14:30 04/22/19 21:29 Dextrose (Dextrose 50%) 50 ml Q30M PRN IV Hypoglycemia 03/26/19 14:30 04/22/19 21:29 Digoxin (Lanoxin) 0.25 mg DAILY IVP 03/27/19 09:00 04/23/19 08:59 03/29/19 08:49 Diltiazem HCl (Cardizem) 10 mg Q1H PRN IV heart rate more than 120, 03/26/19 14:10 04/25/19 14:09 03/28/19 08:27 Furosemide (Lasix) 40 mg DAILY ORAL 03/27/19 09:00 04/24/19 08:59 03/29/19 08:51 Ipratropium [place] (Atrovent) 500 mcg TIDRT HHN 03/26/19 19:00 03/30/19 12:59 03/28/19 19:24 Levothyroxine Sodium (Synthroid) 25 mcg ACBREAKFAST ORAL 03/27/19 06:30 04/23/19 06:29 03/29/19 06:39 Lidocaine (Xylocaine 1% MPF 5ml) 10 ml Q4H PRN HHN cough 03/26/19 14:11 04/25/19 14:10 Lisinopril (Prinivil) 20 mg Q12HR ORAL 03/26/19 21:00 04/23/19 20:59 03/29/19 08:50 Lorazepam (Ativan 2mg/ml 1ml) 0.5 mg Q4H PRN IV For Anxiety 03/26/19 14:11 04/02/19 14:10 Metoprolol Succinate (Toprol XL) 25 mg DAILY ORAL 03/27/19 09:00 04/24/19 08:59 03/29/19 08:51 Morphine Sulfate (Morphine Sulfate) 2 mg Q4H PRN IVP severe pain 7-10 03/26/19 14:11 04/02/19 14:10 Nitroglycerin (Ntg) 0.4 mg Q5M X 3 DOSES PRN SL Prn Chest Pain 03/26/19 14:11 04/25/19 14:10 Ondansetron HCl (Zofran) 4 mg Q6H PRN IVP Nausea & Vomiting 03/26/19 14:11 04/25/19 14:10 Promethazine HCl/ Codeine (Phenergan with Codeine) 5 ml Q6H PRN ORAL cough 03/26/19 14:11 04/25/19 14:10 03/28/19 20:20 Spironolactone (Aldactone) 25 mg DAILY ORAL 03/27/19 09:00 04/24/19 08:59 03/29/19 08:51 Temazepam (Restoril) 15 mg HSPRN PRN ORAL Insomnia 03/26/19 14:12 04/02/19 14:11 Theophylline (Domenic-Dur) 100 mg EVERY 12 HOURS ORAL 03/26/19 21:00 04/23/19 08:59 03/29/19 08:51 Halina Hameed MD Mar 29, 2019 12:53
[2019-03-29] MEDS ORDERED: SPIRONOLACTONE25 MG ORAL (12:59)
--- NOTE | 2019-03-29 13:56 | Infectious Diseases Prog Note ---
Assessment/Plan Assessment/Plan Assessment: Afebrile Leukocytosis; improving (s/p steroids) -03/23 u/a no pyuria CHF exacerbation COPD exacerbation -CT chest: Right middle lobe and left lower lobe linear opacities, minimal, also previously demonstrated and likely reflecting postinflammatory changes. Single tiny subpleural bleb in the right lung apex and minimal focal hyperinflation the right lung apex, may reflect early COPD changes. Minimal bronchial wall thickening centrally. No generalized interstitial process otherwise, Unchanged 2.2 cm prominent precarinal node. No other evidence of mediastinal lymphadenopathy. Subcentimeter right lobe thyroid nodule. No further follow-up necessary Evidence of old granulomatous disease in the right lower lobe -03/25 CXR: Doubt acute process, but atelectasis or pleural fluid at the left lung base not completely excludable. Borderline cardiomegaly -CXR: The heart is borderline enlarged. Lungs and pleural spaces are clear. -influenza sc neg SVT BERENICE, improving CHF HTN obesity COPD former smoker cardiomyopathy EF 30-35% CVA w/ R hemiparesis (2008) Parkinson's disease HLD hypothyroidism Plan: -Cont Azithromycin #06/23 for COPD exacerbation -f/u cx -Monitor CBC/CMP, temperatures -Cards f/u -aspiration precautions Thank you for this consultation. Will continue to follow along with you. Discussed with RN Subjective Allergies: Coded Allergies: NO KNOWN ALLERGIES (Verified Allergy, Unknown, 10/29/18) Subjective afebrile leukocytosis improving Objective Vital Signs Last 24 Hour Vital Signs Date Time Temp Pulse Resp B/P (MAP) Pulse Ox O2 Delivery O2 Flow Rate FiO2 03/29/19 13:38 74 16 97 Nasal Cannula 2.0 28 64 16 96 03/29/19 12:19 72 03/29/19 11:22 98.8 72 18 130/68 (88) 95 69 03/29/19 09:09 Room Air 03/29/19 08:51 78 138/78 03/29/19 08:50 134/78 03/29/19 08:49 78 03/29/19 08:31 88 03/29/19 08:28 98.8 83 18 134/72 (92) 94 82 03/29/19 04:00 97.9 78 18 131/76 (94) 95 03/29/19 04:00 78 03/29/19 00:00 73 03/29/19 00:00 97.7 73 18 141/69 (93) 98 03/28/19 21:00 Room Air 03/28/19 20:20 128/72 03/28/19 20:00 97.8 74 16 128/61 (83) 97 03/28/19 20:00 74 03/28/19 19:24 88 18 98 Nasal Cannula 2.0 28 79 18 96 03/28/19 16:00 71 03/28/19 16:00 98.4 76 18 143/93 (110) 96 Height (Feet): 5 Height (Inches): 5.00 Weight (Pounds): 220 Objective GENERAL: The patient is well-developed and well-nourished obese female, in moderate respiratory distress. HEENT: Eyes, pupils are equal and responsive to light and accommodation. Extraocular movements are intact. NECK: Supple without lymphadenopathy. CHEST: Few wheezes in the bilateral bases with crackles at bilateral bases. CARDIOVASCULAR: Regular rhythm and rate. S1 and S2 normal without murmurs, rubs, or gallops. ABDOMEN: Soft, nontender, and nondistended. Positive bowel sounds. No hepatosplenomegaly. Currently, no rebound or guarding noted. EXTREMITIES: Negative for clubbing, cyanosis, edema. Laboratory Tests Test 03/29/19 05:19 White Blood Count 12.1 K/UL (4.8-10.8) H Red Blood Count 3.60 M/UL (4.20-5.40) L Hemoglobin 11.0 G/DL (12.0-16.0) L Hematocrit 33.6 % (37.0-47.0) L Mean Corpuscular Volume 93 FL (80-99) Mean Corpuscular Hemoglobin 30.5 PG (27.0-31.0) Mean Corpuscular Hemoglobin Concent 32.7 G/DL (32.0-36.0) Red Cell Distribution Width 12.7 % (11.6-14.8) Platelet Count 213 K/UL (150-450) Mean Platelet Volume 6.8 FL (6.5-10.1) Neutrophils (%) (Auto) 71.9 % (45.0-75.0) Lymphocytes (%) (Auto) 19.9 % (20.0-45.0) L Monocytes (%) (Auto) 5.9 % (1.0-10.0) Eosinophils (%) (Auto) 2.0 % (0.0-3.0) Basophils (%) (Auto) 0.4 % (0.0-2.0) Sodium Level 140 MMOL/L (136-145) Potassium Level 3.7 MMOL/L (3.5-5.1) Chloride Level 104 MMOL/L (98-107) Carbon Dioxide Level 28 MMOL/L (21-32) Anion Gap 8 mmol/L (5-15) Blood Urea Nitrogen 19 mg/dL (7-18) H Creatinine 1.2 MG/DL (0.55-1.30) Estimat Glomerular Filtration Rate 54.5 mL/min (>60) Glucose Level 169 MG/DL (74-106) H Calcium Level 8.6 MG/DL (8.5-10.1) Current Medications Medications (Trade) Dose Ordered Sig/Marline Route PRN Reason Start Time Stop Time Status Last Admin Dose Admin Aspirin (Ecotrin) 81 mg DAILY ORAL 03/27/19 09:00 04/23/19 08:59 03/29/19 08:51 Azithromycin (Zithromax) 250 mg DAILY ORAL 03/28/19 09:00 04/04/19 08:59 03/29/19 08:51 Clopidogrel Bisulfate (Plavix) 75 mg DAILY ORAL 03/27/19 09:00 04/23/19 08:59 03/29/19 08:51 Dextrose (Dextrose 50%) 25 ml Q30M PRN IV Hypoglycemia 03/26/19 14:30 04/22/19 21:29 Dextrose (Dextrose 50%) 50 ml Q30M PRN IV Hypoglycemia 03/26/19 14:30 04/22/19 21:29 Digoxin (Lanoxin) 0.25 mg DAILY IVP 03/27/19 09:00 04/23/19 08:59 03/29/19 08:49 Diltiazem HCl (Cardizem) 10 mg Q1H PRN IV heart rate more than 120, 03/26/19 14:10 04/25/19 14:09 03/28/19 08:27 Furosemide (Lasix) 40 mg DAILY ORAL 03/27/19 09:00 04/24/19 08:59 03/29/19 08:51 Ipratropium [place] (Atrovent) 500 mcg TIDRT HHN 03/26/19 19:00 03/30/19 12:59 03/29/19 13:37 Levothyroxine Sodium (Synthroid) 25 mcg ACBREAKFAST ORAL 03/27/19 06:30 04/23/19 06:29 03/29/19 06:39 Lidocaine (Xylocaine 1% MPF 5ml) 10 ml Q4H PRN HHN cough 03/26/19 14:11 04/25/19 14:10 Lisinopril (Prinivil) 20 mg Q12HR ORAL 03/26/19 21:00 04/23/19 20:59 03/29/19 08:50 Lorazepam (Ativan 2mg/ml 1ml) 0.5 mg Q4H PRN IV For Anxiety 03/26/19 14:11 04/02/19 14:10 Metoprolol Succinate (Toprol XL) 25 mg DAILY ORAL 03/27/19 09:00 04/24/19 08:59 03/29/19 08:51 Morphine Sulfate (Morphine Sulfate) 2 mg Q4H PRN IVP severe pain 7-03/26/19 14:11 04/02/19 14:10 Nitroglycerin (Ntg) 0.4 mg Q5M X 3 DOSES PRN SL Prn Chest Pain 03/26/19 14:11 04/25/19 14:10 Ondansetron HCl (Zofran) 4 mg Q6H PRN IVP Nausea & Vomiting 03/26/19 14:11 04/25/19 14:10 Promethazine HCl/ Codeine (Phenergan with Codeine) 5 ml Q6H PRN ORAL cough 03/26/19 14:11 04/25/19 14:10 03/28/19 20:20 Spironolactone (Aldactone) 25 mg DAILY ORAL 03/27/19 09:00 04/24/19 08:59 03/29/19 08:51 Temazepam (Restoril) 15 mg HSPRN PRN ORAL Insomnia 03/26/19 14:12 04/02/19 14:11 Theophylline (Domenic-Dur) 100 mg EVERY 12 HOURS ORAL 03/26/19 21:00 04/23/19 08:59 03/29/19 08:51 Heavenly Clark M.D. Mar 29, 2019 13:56
--- NOTE | 2019-03-29 14:45 | NUR ---
NURSE NOTES: Pt received from JERZY Giron alert and oriented x4 with no acute s/s of distress noted. IV site asymptomatic and patent. Bed in lowest position, call light and belongings within reach.
[2019-03-29 16:00] VITALS: BP 141/75
--- NOTE | 2019-03-29 16:15 | NUR ---
NURSE NOTES: Pt discharged in stable condition, picked up by daughter in private vehicle. IV site d/todd and wristband removed as per protocol. Belongings with patient upon admission. No wounds noted upon discharge. RN communicated and educated pt on discharge and medication education, pt verbalized understanding. Pt left with Spironolactone tablets per new prescript.
--- NOTE | 2019-03-30 09:31 | Discharge Summary ---
Discharge Summary Discharge Summary _ DATE OF ADMISSION: 03/23/2019 DATE OF DISCHARGE: 03/29/2019 DISCHARGED BY: Dr. Sandhu REASON FOR ADMISSION: 68 years old female with past medical history of COPD, CHF, coronary artery disease, hypertension, hyperlipidemia, presented to emergency room for evaluation due to shortness of breath. Symptoms started 3 days ago. Patient noted worsening exertional dyspnea and nonproductive cough. Patient denied fever and chills. Patient complained of nasal congestion and sore throat. No vomiting or diarrhea. Patient also reported left-sided sharp nonradiating chest wall pain earlier a day , but not at the time of presentation to emergency department. Patient reported being compliant with her medications, including Lasix. Patient denied lower extremity edema. Patient was using Symbicort at home , but ran out of albuterol inhaler. Upon evaluation vital signs were stable. Pulse oximetry was 93% on room air. Laboratory work-up revealed mild leukocytosis with WBC 12.4, stable hemoglobin , hematocrit and platelet count. Stable LFT. BUN 24, creatinine 1.5. Glucose 119. ABG on room air was stable. Troponin 0.003. pro BNP 4312. EKG revealed sinus rhythm with prolonged QT interval , but was nonischemic. Heart rate during the stay in the emergency room increased to 140s , and at that time EKG revealed supraventricular tachycardia. Patient received 6 mg of adenosine and converted to sinus rhythm. Chest x-ray revealed mild pulmonary congestion without infiltrates . In emergency department patient received Lasix and aspirin and subsequently admitted for further management. CONSULTANTS: analysis internship Dr. Be pulmonary Dr. Hameed DC specialist Dr. Clark [facility] COURSE: Patient admitted to telemetry floor. Training Engineer and analysis internship followed. Patient initially started on heparin drip. Repeated troponin was negative. Repeat EKG next day revealed sinus rhythm with occasional premature ventricular complexes, incomplete left bundle branch block and nonspecific T wave abnormalities. No further recurrence of supraventricular tachycardia. Per analysis internship, supraventricular tachycardia was possible AV reentrant tachycardia . Patient responded to adenosine treatment in emergency department . Heparin drip was discontinued. Patient with known history of cardiomyopathy, prior ejection fraction 30 to 35%. Guideline directed medical therapy for congestive heart failure was continued, including beta-jose ,NEEL inhibitor, diuretic: Lasix and Aldactone and digoxin. Pulmonology closely follow. Supplemental oxygen provided and titrated to keep pulse oximetry above 92%. Bronchodilator treatment was on board as needed. Patient initially received IV steroids. Nitroglycerin was on board as needed. Dual antiplatelet therapy continued. Patient started on IV steroids. Supplemental oxygen provided and titrated to keep pulse oximetry above 92%. Bronchodilator therapy with albuterol and Atrovent provided via N. Patient started on empiric antibiotics. Trial of theophylline initiated. Antitussive provided as needed. Follow-up chest x-ray could not exclude atelectasis versus pleural fluid at the left lung base. Borderline cardiomegaly. CT of the chest revealed right middle lobe and left lower lobe linear opacity minimal , previously demonstrated , likely reflecting postinflammatory changes. Minimal bronchial wall thickening. No generalized interstitial process. Single tiny subpleural bleb in the right lung apex and minimal focal hyperinflation of the right lung apex may possibly reflect an early COPD changes. Unchanged 2.2 cm prominent precarinal node. No other evidence of mediastinal lymphadenopathy Evidence of granulomatous disease in the right lower lobe. Subcentimeter right lobe thyroid nodule , no further work-up was necessarily. Steroid tapered. Prescription for Medrol Dosepak provided upon discharge. ID specialist followed. Influenza swab was negative. Patient developed leukocytosis with highest- 17.8. Patient remained afebrile. Leukocytosis was improving , likely secondary to steroids. Patient was on empiric azithromycin for COPD exacerbation. Aspiration precaution maintained. Renal parameters and electrolytes were closely monitored. Renal ultrasound was negative. Electrolytes corrected as needed/potassium. BUN from 24 down to 19 , creatinine from 1.5 down to 1.2. Acute kidney injury resolved . Levothyroxine continued. Patient clinically stabilized . No recurrence of supraventricular tachycardia. No evidence of arrhythmia on telemetry , no chest pain. Patient was stable for discharge home. 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 DISCHARGE INSTRUCTIONS: Patient was discharged home. Follow-up with primary care provider in 1 week. I have been assigned to dictate discharge summary for this account. I was not involved in the patient's management. Jolie Cordova NP Mar 30, 2019 09:31
== END 2019-03-29 16:15 | disposition home or self-care (01) | DRG 292 ==
LOC: EMR 17:28 → EDBEDREQ 17:43 → 2W 17:54 → EDBEDREQ 18:00 → EDBEDREQSVC 20:45 → EDBEDREQ 21:15 → 2W 03-25 12:06 → 2E 03-26 13:50
DX: I11.0 Hypertensive heart disease with heart failure (principal); J44.1 Chronic obstructive pulmonary disease with (acute) exacerbation; I47.1 Supraventricular tachycardia; I69.959 Hemiplegia and hemiparesis following unspecified cerebrovascular disease affecting unspecified side; N17.9 Acute kidney failure, unspecified; J44.0 Chronic obstructive pulmonary disease with (acute) lower respiratory infection; I25.10 Atherosclerotic heart disease of native coronary artery without angina pectoris; J20.9 Acute bronchitis, unspecified; I50.9 Heart failure, unspecified; G20 Parkinson's disease; I42.9 Cardiomyopathy, unspecified; E78.00 Pure hypercholesterolemia, unspecified; E03.9 Hypothyroidism, unspecified; I44.7 Left bundle-branch block, unspecified; Z87.891 Personal history of nicotine dependence; R94.31 Abnormal electrocardiogram [ECG] [EKG]; E66.9 Obesity, unspecified; D72.829 Elevated white blood cell count, unspecified; Z68.36 Body mass index [BMI] 36.0-36.9, adult
CPT/HCPCS: 36415; 36600; 71045; 71250; 76770; 80048; 80053; 81001; 82043; 82550; 82803; 83735; 83880; 83935; 84100; 84300; 84484; 84550; 85007; 85025; 85610; 85730; 86710; 89050; 93005; 94640; 94664; 96374; 96375; 99291; J8499

== ENCOUNTER 2019-07-07 16:24 | Inpatient (IN) | payer MEDICARE, MEDICAID ==
[~2019-07-07] VITALS: Ht 162.6 cm; Wt 92.5 kg
[~2019-07-07 16:24] MED LIST changes: +ACETAMINOPHEN325 M1 ORAL; +ATORVASTATIN CA10 MG ORAL; +VITAMIN D31000 UNI4 PO
[2019-07-07] MEDS ORDERED: Solu-MEDROL 125mg Inj IVP ONE (17:15)
[2019-07-07] MEDS ORDERED: Albuterol/Ipratropium 3ml neb HHN ONE (17:15)
[2019-07-07 17:31] VITALS: BP 144/91
--- NOTE | 2019-07-07 17:33 | Emergency Room Report ---
History of Present Illness General Chief Complaint: Upper Respiratory Illness Source: Patient Present Illness HPI Patient is a 69-year-old female past medical history of COPD and CHF who presents to the ER complaining of shortness of breath for the past 3 days. Patient also complains of left-sided chest pain rating down her arm. She complains of cough that is nonproductive. She denies fever or chills. She denies any lower extremity pain or edema. She denies any abdominal pain, nausea or vomiting. She denies any recent travel or sick contacts. She states that she no longer smokes cigarettes. COVID-19 risk:Contact w/high r: No COVID-19 risk:Travel to affect: No Has patient experienced allen: No Allergies: Coded Allergies: NO KNOWN ALLERGIES (Verified Allergy, Unknown, 10/29/18) Patient History Now: No Reviewed Nursing Documentation: PMH: Agreed; PSxH: Agreed Nursing Documentation-PMH Hx Hypertension: Yes Hx Pacemaker: No Hx COPD: Yes Hx Diabetes: No Hx Cancer: No Hx Gastrointestinal Problems: No Hx Neurological Problems: No Hx Cerebrovascular Accident: Yes Hx Neurologic Surgery: No Review of Systems All Other Systems: negative except mentioned in HPI Physical Exam Vital Signs Date Time Temp Pulse Resp B/P (MAP) Pulse Ox O2 Delivery O2 Flow Rate FiO2 07/07/19 16:45 97.2 77 20 144/91 (108) 92 Room Air Sp02 EP Interpretation: reviewed, abnormal General Appearance: no apparent distress, alert, GCS 15, non-toxic Head: normocephalic, atraumatic Eyes: bilateral eye normal inspection, bilateral eye PERRL ENT: hearing grossly normal, normal pharynx, no angioedema, normal voice Neck: full range of motion, supple/symm/no masses Respiratory: chest non-tender, lungs clear, decreased breath sounds, speaking full sentences, other - Bibasilar crackles Cardiovascular #1: regular rate, rhythm, no edema Gastrointestinal: normal bowel sounds, non tender, soft, non-distended, no guarding, no rebound Rectal: deferred Genitourinary: normal inspection, no CVA tenderness Musculoskeletal: back normal, normal range of motion, calf tenderness, gait/ station normal, non-tender Neurologic: alert, motor strength/tone normal, oriented x3, sensory intact, responsive, speech normal Psychiatric: judgement/insight normal, memory normal, mood/affect normal, no suicidal/homicidal ideation Skin: no rash Lymphatic: no adenopathy Medical Decision Making Diagnostic Impression: Primary Impression: COPD (chronic obstructive pulmonary disease) Additional Impressions: CHF exacerbation ACS (acute coronary syndrome) ER Course Patient presents with mixed picture of COPD and CHF exacerbation. Patient also has chest pain. Patient given aspirin oral. Patient given 40mg IV lasix for CHF excaerbation. Patient presented with diminished breath sounds. Patient given nebulizer treatment with 125 Solu-Medrol. On reevaluation patient states that she feels mildly improved. Awaiting urine output after IV Lasix. EKG Diagnostic Results EKG Time: 17:13 EP Interpretation: MD Erik Rate: normal Rhythm: NSR ST Segments: no acute changes ASA given to the pt in ED: Yes Rhythm Strip Diag. Results EP Interpretation: yes - MD Erik Rate: 74 Rhythm: NSR, no PVC's, no ectopy Last Vital Signs Date Time Temp Pulse Resp B/P (MAP) Pulse Ox O2 Delivery O2 Flow Rate FiO2 07/07/19 16:45 97.2 77 20 144/91 (108) 92 Room Air Disposition: ADMITTED INPATIENT Condition: Critical - improved Physician Consult: Dr. aSndhu to admit to telemetry. Zaira Valencia M.D. Jul 07, 2019 17:33
[2019-07-07 18:05] LABS: EOSINOPHILS % (AUTO) 1.6 % (0.0-3.0); HEMATOCRIT 37.5 % (37.0-47.0); HEMOGLOBIN 12.1 G/DL (12.0-16.0); MEAN CORPUSCULAR VOLUME 92 FL (80-99); MONOCYTES % (AUTO) 4.2 % (1.0-10.0); NEUTROPHILS % (AUTO) 69.3 % (45.0-75.0); PLATELET COUNT 216 K/UL (150-450); RED BLOOD COUNT 4.07 M/UL (4.20-5.40); RED CELL DISTRIBUTION WIDTH 13.9 % (11.6-14.8); WHITE BLOOD COUNT 10.8 K/UL (4.8-10.8)
[2019-07-07 18:06] LABS: ANION GAP 12 mmol/L (5-15); APPEARANCE,URINE CLEAR; BILIRUBIN, URINE NEGATIVE (NEGATIVE); BLOOD UREA NITROGEN 28 mg/dL (7-18); CALCIUM 9.5 MG/DL (8.5-10.1); CARBON DIOXIDE 23 MMOL/L (21-32); CHLORIDE 105 MMOL/L (98-107); COLOR,URINE PALE YELLOW; CREATININE 1.2 MG/DL (0.55-1.30); GLUCOSE, URINE (UA) NEGATIVE (NEGATIVE); INR 0.9 (0.9-1.1); KETONES,URINE NEGATIVE (NEGATIVE); LEUKOCYTE ESTERASE ,URINE NEGATIVE (NEGATIVE); NITRITE,URINE NEGATIVE (NEGATIVE); PH,URINE 5 (4.5-8.0); POTASSIUM 4.2 MMOL/L (3.5-5.1); PROTEIN,URINE NEGATIVE (NEGATIVE); SODIUM 140 MMOL/L (136-145); UROBILINOGEN,URINE NORMAL MG/DL (0.0-1.0)
[2019-07-07 18:16] LABS: ALANINE AMINOTRANSFERASE 22 U/L (12-78); ALBUMIN 3.6 G/DL (3.4-5.0); ALBUMIN/GLOBULIN RATIO 0.8 (1.0-2.7); ALKALINE PHOSPHATASE 117 U/L (46-116); ASPARTATE AMINO TRANSFERASE 27 U/L (15-37); BILIRUBIN,TOTAL 0.2 MG/DL (0.2-1.0)
[2019-07-07] MEDS ORDERED: Miralax 17gm pkt ORAL PRN (19:15)
[2019-07-07] MEDS ORDERED: Albuterol/Ipratropium 3ml neb HHN PRN (19:15)
[2019-07-07 20:44] VITALS: BP 143/66
[2019-07-07] MEDS ORDERED: Heparin 5000 units/ml inj SUBQ SCH (21:00)
[2019-07-07] MEDS ORDERED: Carvedilol 6.25mg Tab ORAL SCH (22:00)
[2019-07-07 22:30] VITALS: BP 152/76
[2019-07-07] MEDS: Carvedilol 6.25mg Tab ORAL SCH (23:00)
[2019-07-07] MEDS: Heparin 5000 units/ml inj SUBQ SCH (23:01)
[2019-07-08] VITALS: BP 129/82
[2019-07-08 04:00] VITALS: BP 142/86
[2019-07-08] MEDS: Levothyroxine 25mcg tab ORAL SCH (06:06)
[2019-07-08 06:42] LABS: BASOPHILS % (AUTO) 0.1 % (0.0-2.0); HEMATOCRIT 36.7 % (37.0-47.0); HEMOGLOBIN 12.4 G/DL (12.0-16.0); LYMPHOCYTES % (AUTO) 14.6 % (20.0-45.0); MEAN CORPUSCULAR VOLUME 88 FL (80-99); MONOCYTES % (AUTO) 0.6 % (1.0-10.0); NEUTROPHILS % (AUTO) 84.7 % (45.0-75.0); PLATELET COUNT 229 K/UL (150-450); RED BLOOD COUNT 4.15 M/UL (4.20-5.40); RED CELL DISTRIBUTION WIDTH 12.7 % (11.6-14.8); WHITE BLOOD COUNT 8.3 K/UL (4.8-10.8)
[2019-07-08 07:13] LABS: ALBUMIN 3.5 G/DL (3.4-5.0); ANION GAP 14 mmol/L (5-15); BLOOD UREA NITROGEN 30 mg/dL (7-18); CALCIUM 10.4 MG/DL (8.5-10.1); CARBON DIOXIDE 24 MMOL/L (21-32); CHLORIDE 103 MMOL/L (98-107); CREATININE 1.2 MG/DL (0.55-1.30); PHOSPHORUS 2.7 MG/DL (2.5-4.9); POTASSIUM 4.1 MMOL/L (3.5-5.1); SODIUM 140 MMOL/L (136-145)
[2019-07-08 08:00] VITALS: BP 140/75
[2019-07-08] MEDS: Carvedilol 6.25mg Tab ORAL SCH (08:44)
[2019-07-08] MEDS: Aspirin EC 81mg tab ORAL SCH (08:44)
[2019-07-08] MEDS: Heparin 5000 units/ml inj SUBQ SCH ×2 (08:45→20:41)
--- NOTE | 2019-07-08 11:26 | Consultation ---
History of Present Illness General Date patient seen: Jul 08, 2019 Chief Complaint: Upper Respiratory Illness Present Illness HPI 69-year-old female, former smoker with a history of COPD, CHF, EF of 30%, hypertension, prior CVA, and TIA presenting with two to three days of shortness of breath, nonproductive cough. She denied any fevers, chills, chest pain, headaches, dizziness, nausea, vomiting, hemoptysis, weight loss, diarrhea, constipation, or other complaints. Her CXR only showed cardiomegaly without CHF. She received a dose of IV lasix and solumedrol 125 mgt in ER admitted to telemetry for further management. Allergies: Coded Allergies: NO KNOWN ALLERGIES (Verified Allergy, Unknown, 10/29/18) Medication History Scheduled Aspirin* (Aspir 81*), 81 MG ORAL DAILY, (Reported) Atorvastatin Calcium* (Lipitor*), 10 MG ORAL BEDTIME, (Reported) Brimonidine Tartrate (Alphagan P), 1 DROP OP TID, (Reported) Carvedilol* (Carvedilol*), 6.25 MG ORAL EVERY 12 HOURS, (Reported) Cholecalciferol (Vitamin D3) (Vitamin D3), 1,000 UNIT PO DAILY, (Reported) Clopidogrel Bisulfate* (Plavix*), 75 MG ORAL DAILY Furosemide* (Lasix*), 40 MG ORAL DAILY, (Reported) Levothyroxine Sodium* (Synthroid*), 25 MCG ORAL DAILY, (Reported) Netarsudil Mesylate (Rhopressa), 1 ML OP QHS, (Reported) Spironolactone* (Aldactone*), 25 MG ORAL DAILY Tizanidine Hcl (Tizanidine Hcl), 2 MG PO EVERY 12 HOURS, (Reported) Scheduled PRN Acetaminophen* (Acetaminophen 325MG Tablet*), 650 MG ORAL Q8HR PRN for ARTHRITIS PAIN, (Reported) Budesonide/Formoterol Fumarate (Symbicort 160-4.5 Mcg Inhaler), 2 PUFF IH BID PRN for Shortness of Breath, (Reported) Patient History Healthcare decision maker Resuscitation status Full Code Advanced Directive on File Past Medical/Surgical History Past Medical/Surgical History: (1) History of CVA (cerebrovascular accident) (2) EF 35% (3) COPD (chronic obstructive pulmonary disease) (4) Hypothyroidism (5) HTN (hypertension) (6) Hemiparesis affecting right side as late effect of cerebrovascular accident (CVA) Review of Systems Constitutional: Reports: no symptoms ENT: Reports: no symptoms Physical Exam General Appearance: morbidly obese Lines, tubes and drains: peripheral HEENT: normocephalic, atraumatic Neck: non-tender, normal alignment Respiratory/Chest: chest wall non-tender, lungs clear Breasts: no masses Cardiovascular/Chest: normal peripheral pulses Abdomen: normal bowel sounds Genitourinary/Rectal: normal genital exam Extremities: normal range of motion Last 24 Hour Vital Signs Date Time Temp Pulse Resp B/P (MAP) Pulse Ox O2 Delivery O2 Flow Rate FiO2 07/08/19 08:44 88 140/75 07/08/19 08:00 91 07/08/19 08:00 97.7 88 20 140/75 (96) 95 07/08/19 04:00 97.7 85 20 142/86 (104) 94 07/08/19 04:00 89 07/08/19 00:00 97.7 86 20 129/82 (98) 94 07/08/19 00:00 79 07/07/19 23:00 69 152/76 07/07/19 22:30 97.0 69 20 152/76 (101) 95 07/07/19 22:10 97.9 82 17 139/70 98 Room Air 07/07/19 20:44 80 18 143/66 97 Room Air 07/07/19 20:37 Room Air 07/07/19 17:47 80 18 98 Room Air 21 78 25 95 07/07/19 17:31 77 20 Room Air 07/07/19 17:31 97.2 84 20 144/91 92 Room Air 07/07/19 16:45 97.2 77 20 144/91 (108) 92 Room Air Intake and Output 07/07/19 07/08/19 19:00 07:00 Intake Total 200 ml Output Total 600 ml Balance -400 ml Intake Oral 200 ml Output Urine Total 600 ml # Voids 5 Laboratory Tests Test 07/07/19 17:25 07/07/19 17:45 07/08/19 06:02 White Blood Count 10.8 K/UL (4.8-10.8) 8.3 K/UL (4.8-10.8) Red Blood Count 4.07 M/UL (4.20-5.40) L 4.15 M/UL (4.20-5.40) L Hemoglobin 12.1 G/DL (12.0-16.0) 12.4 G/DL (12.0-16.0) Hematocrit 37.5 % (37.0-47.0) 36.7 % (37.0-47.0) L Mean Corpuscular Volume 92 FL (80-99) 88 FL (80-99) Mean Corpuscular Hemoglobin 29.7 PG (27.0-31.0) 29.9 PG (27.0-31.0) Mean Corpuscular Hemoglobin Concent 32.3 G/DL (32.0-36.0) 33.9 G/DL (32.0-36.0) Red Cell Distribution Width 13.9 % (11.6-14.8) 12.7 % (11.6-14.8) Platelet Count 216 K/UL (150-450) 229 K/UL (150-450) Mean Platelet Volume 7.5 FL (6.5-10.1) 7.0 FL (6.5-10.1) Neutrophils (%) (Auto) 69.3 % (45.0-75.0) 84.7 % (45.0-75.0) H Lymphocytes (%) (Auto) 24.0 % (20.0-45.0) 14.6 % (20.0-45.0) L Monocytes (%) (Auto) 4.2 % (1.0-10.0) 0.6 % (1.0-10.0) L Eosinophils (%) (Auto) 1.6 % (0.0-3.0) 0.0 % (0.0-3.0) Basophils (%) (Auto) 1.0 % (0.0-2.0) 0.1 % (0.0-2.0) Prothrombin Time 9.8 SEC (9.30-11.50) Prothromb Time International Ratio 0.9 (0.9-1.1) Activated Partial Thromboplast Time 24 SEC (23-33) Urine Color Pale yellow Urine Appearance Clear Urine pH 5 (4.5-8.0) Urine Specific [place] 1.010 (1.005-1.035) Urine Protein Negative (NEGATIVE) Urine Glucose (UA) Negative (NEGATIVE) Urine Ketones Negative (NEGATIVE) Urine Blood Negative (NEGATIVE) Urine Nitrite Negative (NEGATIVE) Urine Bilirubin Negative (NEGATIVE) Urine Urobilinogen Normal MG/DL (0.0-1.0) Urine Leukocyte Esterase Negative (NEGATIVE) Sodium Level 140 MMOL/L (136-145) 140 MMOL/L (136-145) Potassium Level 4.2 MMOL/L (3.5-5.1) 4.1 MMOL/L (3.5-5.1) Chloride Level 105 MMOL/L (98-107) 103 MMOL/L (98-107) Carbon Dioxide Level 23 MMOL/L (21-32) 24 MMOL/L (21-32) Anion Gap 12 mmol/L (5-15) 14 mmol/L (5-15) Blood Urea Nitrogen 28 mg/dL (7-18) H 30 mg/dL (7-18) H Creatinine 1.2 MG/DL (0.55-1.30) 1.2 MG/DL (0.55-1.30) Estimat Glomerular Filtration Rate 54.3 mL/min (>60) 54.3 mL/min (>60) Glucose Level 113 MG/DL (74-106) H 206 MG/DL (74-106) H Lactic Acid Level 1.40 mmol/L (0.4-2.0) Calcium Level 9.5 MG/DL (8.5-10.1) 10.4 MG/DL (8.5-10.1) H Magnesium Level 1.9 MG/DL (1.8-2.4) Total Bilirubin 0.2 MG/DL (0.2-1.0) Aspartate Amino Transf (AST/SGOT) 27 U/L (15-37) Alanine Aminotransferase (ALT/SGPT) 22 U/L (12-78) Alkaline Phosphatase 117 U/L (46-116) H Troponin I 0.014 ng/mL (0.000-0.056) 0.002 ng/mL (0.000-0.056) Pro-B-Type Natriuretic Peptide 922 pg/mL (0-125) H Total Protein 8.4 G/DL (6.4-8.2) H Albumin 3.6 G/DL (3.4-5.0) 3.5 G/DL (3.4-5.0) Globulin 4.8 g/dL Albumin/Globulin Ratio 0.8 (1.0-2.7) L Arterial Blood pH 7.423 (7.350-7.450) Arterial Blood Partial Pressure CO2 31.4 mmHg (35.0-45.0) L Arterial Blood Partial Pressure O2 78.4 mmHg (75.0-100.0) Arterial Blood HCO3 20.0 mmol/L (22.0-26.0) L Arterial Blood Oxygen Saturation 94.7 % (95-100) L Arterial Blood Base Excess -3.5 (-2-2) L Royce Test Positive Phosphorus Level 2.7 MG/DL (2.5-4.9) Microbiology Date/Time Source Procedure Growth Status 07/07/19 21:32 Nasal Nares - Final Complete 07/07/19 21:32 Nasal Nares - Final Complete Height (Feet): 5 Height (Inches): 4.00 Weight (Pounds): 204 Medications Current Medications Medications (Trade) Dose Ordered Sig/Marline Route PRN Reason Start Time Stop Time Status Last Admin Dose Admin Acetaminophen (Tylenol) 650 mg Q4H PRN ORAL T>100.5 07/07/19 19:15 08/06/19 19:14 07/08/19 08:51 Albuterol/ Ipratropium (Albuterol/ Ipratropium) 3 ml Q4H PRN HHN Shortness of Breath 07/07/19 19:15 07/12/19 19:14 Aspirin (Ecotrin) 81 mg DAILY ORAL 07/08/19 09:00 08/22/19 08:59 07/08/19 08:44 Atorvastatin Calcium (Lipitor) 10 mg BEDTIME ORAL 07/07/19 23:00 10/05/19 22:59 07/07/19 23:00 Carvedilol (Coreg) 6.25 mg EVERY 12 HOURS ORAL 07/07/19 23:00 08/06/19 22:59 07/08/19 08:44 Clopidogrel Bisulfate (Plavix) 75 mg DAILY ORAL 07/08/19 09:00 08/07/19 08:59 07/08/19 08:44 Dextrose (Dextrose 50%) 25 ml Q30M PRN IV Hypoglycemia 07/07/19 19:15 10/05/19 19:14 Dextrose (Dextrose 50%) 50 ml Q30MIN PRN IV Hypoglycemia 07/07/19 19:15 10/05/19 19:14 Heparin Sodium (Porcine) (Heparin 5000 units/ml) 5,000 units EVERY 12 HOURS SUBQ 07/07/19 23:00 08/21/19 22:59 07/08/19 08:45 Levothyroxine Sodium (Synthroid) 25 mcg ACBREAKFAST ORAL 07/08/19 06:30 08/07/19 06:29 07/08/19 06:06 Ondansetron HCl (Zofran) 4 mg Q6H PRN IVP Nausea & Vomiting 07/07/19 19:15 08/06/19 19:14 Polyethylene Glycol (Miralax) 17 gm DAILYPRN PRN ORAL Constipation 07/07/19 19:15 08/06/19 19:14 Temazepam (Restoril) 15 mg HSPRN PRN ORAL Insomnia 07/07/19 21:00 07/14/19 20:59 Assessment/Plan Problem List: (1) Acute exacerbation of COPD with asthma ICD Codes: J44.1 - Chronic obstructive pulmonary disease with (acute) exacerbation; J45.901 - Unspecified asthma with (acute) exacerbation SNOMED: 4967152762503 (2) Acute bronchitis ICD Codes: J20.9 - Acute bronchitis,unspecified SNOMED: 84999938 (3) EF 35% (4) COPD (chronic obstructive pulmonary disease) ICD Codes: J44.9 - Chronic obstructive pulmonary disease, unspecified SNOMED: 92332555 (5) Hypothyroidism ICD Codes: E03.9 - Hypothyroidism, unspecified SNOMED: 34939221 (6) HTN (hypertension) ICD Codes: I10 - Essential (primary) hypertension SNOMED: 00356879 (7) Hemiparesis affecting right side as late effect of cerebrovascular accident (CVA) ICD Codes: I69.351 - Hemiplegia and hemiparesis following cerebral infarction affecting right dominant side SNOMED: 709446199 (8) CAD (coronary artery disease) ICD Codes: I25.10 - Atherosclerotic heart disease of [place] coronary artery without angina pectoris SNOMED: 23642511 (9) History of CVA (cerebrovascular accident) ICD Codes: Z86.73 - Personal history of transient ischemic attack (TIA), and cerebral infarction without residual deficits SNOMED: 323318433 Assessment/Plan: respiratory treatment check sputum optimize cardiac med f/u bun/ creatinine and BNP cxr was clear on admission Halina Hameed MD Jul 08, 2019 11:26
[2019-07-08 12:00] VITALS: BP 144/94
--- NOTE | 2019-07-08 12:18 | Consultation ---
History of Present Illness General Date patient seen: Jul 08, 2019 Time patient seen: 12:06 Chief Complaint: Upper Respiratory Illness Present Illness HPI 69 year old Pt ambulated to ED from home d/t shortness of breath 2-3 days. Pt is AOx4, calm and cooperative, She has CHF, COPD, HTN, LVEF 30% She has a smoking history and COPD. CXR with cardiomegaly, no CHF or volume overload. No fever no travel no sick contacts. She was given lasis and steroid in ER. Troponin negative. Allergies: Coded Allergies: NO KNOWN ALLERGIES (Verified Allergy, Unknown, 10/29/18) Medication History Scheduled Aspirin* (Aspir 81*), 81 MG ORAL DAILY, (Reported) Atorvastatin Calcium* (Lipitor*), 10 MG ORAL BEDTIME, (Reported) Brimonidine Tartrate (Alphagan P), 1 DROP OP TID, (Reported) Carvedilol* (Carvedilol*), 6.25 MG ORAL EVERY 12 HOURS, (Reported) Cholecalciferol (Vitamin D3) (Vitamin D3), 1,000 UNIT PO DAILY, (Reported) Clopidogrel Bisulfate* (Plavix*), 75 MG ORAL DAILY Furosemide* (Lasix*), 40 MG ORAL DAILY, (Reported) Levothyroxine Sodium* (Synthroid*), 25 MCG ORAL DAILY, (Reported) Netarsudil Mesylate (Rhopressa), 1 ML OP QHS, (Reported) Spironolactone* (Aldactone*), 25 MG ORAL DAILY Tizanidine Hcl (Tizanidine Hcl), 2 MG PO EVERY 12 HOURS, (Reported) Scheduled PRN Acetaminophen* (Acetaminophen 325MG Tablet*), 650 MG ORAL Q8HR PRN for ARTHRITIS PAIN, (Reported) Budesonide/Formoterol Fumarate (Symbicort 160-4.5 Mcg Inhaler), 2 PUFF IH BID PRN for Shortness of Breath, (Reported) Patient History Healthcare decision maker Resuscitation status Full Code Advanced Directive on File Review of Systems Constitutional: Reports: no symptoms Eye: Reports: no symptoms ENT: Reports: no symptoms Respiratory: Reports: no symptoms Cardiovascular: Reports: no symptoms Gastrointestinal: Reports: no symptoms Genitourinary: Reports: no symptoms Musculoskeletal: Reports: no symptoms Skin: Reports: no symptoms Psychiatric: Reports: no symptoms Neurological: Reports: no symptoms Endocrine: Reports: no symptoms Hematologic/Lymphatic: Reports: no symptoms Physical Exam General Appearance: no apparent distress, alert Lines, tubes and drains: peripheral HEENT: normocephalic, atraumatic, anicteric, mucous membranes moist, PERRL Neck: non-tender, normal alignment, supple, normal inspection Respiratory/Chest: chest wall non-tender, lungs clear, normal breath sounds Cardiovascular/Chest: normal peripheral pulses, normal rate, regular rhythm Abdomen: normal bowel sounds, non tender, soft, no organomegaly Extremities: normal range of motion, non-tender, normal inspection, no calf tenderness, normal capillary refill, non-pitting Skin Exam: normal pigmentation, warm/dry, cyanotic Neurologic: wool washer II-XII grossly normal, no motor/sensory deficits Last 24 Hour Vital Signs Date Time Temp Pulse Resp B/P (MAP) Pulse Ox O2 Delivery O2 Flow Rate FiO2 07/08/19 09:00 Room Air 07/08/19 08:44 88 140/75 07/08/19 08:00 91 07/08/19 08:00 97.7 88 20 140/75 (96) 95 07/08/19 04:00 97.7 85 20 142/86 (104) 94 07/08/19 04:00 89 07/08/19 00:00 97.7 86 20 129/82 (98) 94 07/08/19 00:00 79 07/07/19 23:00 69 152/76 07/07/19 22:30 97.0 69 20 152/76 (101) 95 07/07/19 22:10 97.9 82 17 139/70 98 Room Air 07/07/19 20:44 80 18 143/66 97 Room Air 07/07/19 20:37 Room Air 07/07/19 17:47 80 18 98 Room Air 21 78 25 95 07/07/19 17:31 77 20 Room Air 07/07/19 17:31 97.2 84 20 144/91 92 Room Air 07/07/19 16:45 97.2 77 20 144/91 (108) 92 Room Air Intake and Output 07/07/19 07/08/19 19:00 07:00 Intake Total 200 ml Output Total 600 ml Balance -400 ml Intake Oral 200 ml Output Urine Total 600 ml # Voids 5 Laboratory Tests Test 07/07/19 17:25 07/07/19 17:45 07/08/19 06:02 White Blood Count 10.8 K/UL (4.8-10.8) 8.3 K/UL (4.8-10.8) Red Blood Count 4.07 M/UL (4.20-5.40) L 4.15 M/UL (4.20-5.40) L Hemoglobin 12.1 G/DL (12.0-16.0) 12.4 G/DL (12.0-16.0) Hematocrit 37.5 % (37.0-47.0) 36.7 % (37.0-47.0) L Mean Corpuscular Volume 92 FL (80-99) 88 FL (80-99) Mean Corpuscular Hemoglobin 29.7 PG (27.0-31.0) 29.9 PG (27.0-31.0) Mean Corpuscular Hemoglobin Concent 32.3 G/DL (32.0-36.0) 33.9 G/DL (32.0-36.0) Red Cell Distribution Width 13.9 % (11.6-14.8) 12.7 % (11.6-14.8) Platelet Count 216 K/UL (150-450) 229 K/UL (150-450) Mean Platelet Volume 7.5 FL (6.5-10.1) 7.0 FL (6.5-10.1) Neutrophils (%) (Auto) 69.3 % (45.0-75.0) 84.7 % (45.0-75.0) H Lymphocytes (%) (Auto) 24.0 % (20.0-45.0) 14.6 % (20.0-45.0) L Monocytes (%) (Auto) 4.2 % (1.0-10.0) 0.6 % (1.0-10.0) L Eosinophils (%) (Auto) 1.6 % (0.0-3.0) 0.0 % (0.0-3.0) Basophils (%) (Auto) 1.0 % (0.0-2.0) 0.1 % (0.0-2.0) Prothrombin Time 9.8 SEC (9.30-11.50) Prothromb Time International Ratio 0.9 (0.9-1.1) Activated Partial Thromboplast Time 24 SEC (23-33) Urine Color Pale yellow Urine Appearance Clear Urine pH 5 (4.5-8.0) Urine Specific [place] 1.010 (1.005-1.035) Urine Protein Negative (NEGATIVE) Urine Glucose (UA) Negative (NEGATIVE) Urine Ketones Negative (NEGATIVE) Urine Blood Negative (NEGATIVE) Urine Nitrite Negative (NEGATIVE) Urine Bilirubin Negative (NEGATIVE) Urine Urobilinogen Normal MG/DL (0.0-1.0) Urine Leukocyte Esterase Negative (NEGATIVE) Sodium Level 140 MMOL/L (136-145) 140 MMOL/L (136-145) Potassium Level 4.2 MMOL/L (3.5-5.1) 4.1 MMOL/L (3.5-5.1) Chloride Level 105 MMOL/L (98-107) 103 MMOL/L (98-107) Carbon Dioxide Level 23 MMOL/L (21-32) 24 MMOL/L (21-32) Anion Gap 12 mmol/L (5-15) 14 mmol/L (5-15) Blood Urea Nitrogen 28 mg/dL (7-18) H 30 mg/dL (7-18) H Creatinine 1.2 MG/DL (0.55-1.30) 1.2 MG/DL (0.55-1.30) Estimat Glomerular Filtration Rate 54.3 mL/min (>60) 54.3 mL/min (>60) Glucose Level 113 MG/DL (74-106) H 206 MG/DL (74-106) H Lactic Acid Level 1.40 mmol/L (0.4-2.0) Calcium Level 9.5 MG/DL (8.5-10.1) 10.4 MG/DL (8.5-10.1) H Magnesium Level 1.9 MG/DL (1.8-2.4) Total Bilirubin 0.2 MG/DL (0.2-1.0) Aspartate Amino Transf (AST/SGOT) 27 U/L (15-37) Alanine Aminotransferase (ALT/SGPT) 22 U/L (12-78) Alkaline Phosphatase 117 U/L (46-116) H Troponin I 0.014 ng/mL (0.000-0.056) 0.002 ng/mL (0.000-0.056) Pro-B-Type Natriuretic Peptide 922 pg/mL (0-125) H Total Protein 8.4 G/DL (6.4-8.2) H Albumin 3.6 G/DL (3.4-5.0) 3.5 G/DL (3.4-5.0) Globulin 4.8 g/dL Albumin/Globulin Ratio 0.8 (1.0-2.7) L Arterial Blood pH 7.423 (7.350-7.450) Arterial Blood Partial Pressure CO2 31.4 mmHg (35.0-45.0) L Arterial Blood Partial Pressure O2 78.4 mmHg (75.0-100.0) Arterial Blood HCO3 20.0 mmol/L (22.0-26.0) L Arterial Blood Oxygen Saturation 94.7 % (95-100) L Arterial Blood Base Excess -3.5 (-2-2) L Royce Test Positive Phosphorus Level 2.7 MG/DL (2.5-4.9) Microbiology Date/Time Source Procedure Growth Status 07/07/19 21:32 Nasal Nares - Final Complete 07/07/19 21:32 Nasal Nares - Final Complete Height (Feet): 5 Height (Inches): 4.00 Weight (Pounds): 204 Medications Current Medications Medications (Trade) Dose Ordered Sig/Marline Route PRN Reason Start Time Stop Time Status Last Admin Dose Admin Acetaminophen (Tylenol) 650 mg Q4H PRN ORAL T>100.5 07/07/19 19:15 08/06/19 19:14 07/08/19 08:51 Albuterol/ Ipratropium (Albuterol/ Ipratropium) 3 ml Q4H PRN HHN Shortness of Breath 07/07/19 19:15 07/12/19 19:14 Aspirin (Ecotrin) 81 mg DAILY ORAL 07/08/19 09:00 08/22/19 08:59 07/08/19 08:44 Atorvastatin Calcium (Lipitor) 10 mg BEDTIME ORAL 07/07/19 23:00 10/05/19 22:59 07/07/19 23:00 Carvedilol (Coreg) 6.25 mg EVERY 12 HOURS ORAL 07/07/19 23:00 08/06/19 22:59 07/08/19 08:44 Clopidogrel Bisulfate (Plavix) 75 mg DAILY ORAL 07/08/19 09:00 08/07/19 08:59 07/08/19 08:44 Dextrose (Dextrose 50%) 25 ml Q30M PRN IV Hypoglycemia 07/07/19 19:15 10/05/19 19:14 Dextrose (Dextrose 50%) 50 ml Q30MIN PRN IV Hypoglycemia 07/07/19 19:15 10/05/19 19:14 Heparin Sodium (Porcine) (Heparin 5000 units/ml) 5,000 units EVERY 12 HOURS SUBQ 07/07/19 23:00 08/21/19 22:59 07/08/19 08:45 Levothyroxine Sodium (Synthroid) 25 mcg ACBREAKFAST ORAL 07/08/19 06:30 08/07/19 06:29 07/08/19 06:06 Ondansetron HCl (Zofran) 4 mg Q6H PRN IVP Nausea & Vomiting 07/07/19 19:15 08/06/19 19:14 Polyethylene Glycol (Miralax) 17 gm DAILYPRN PRN ORAL Constipation 07/07/19 19:15 08/06/19 19:14 Temazepam (Restoril) 15 mg HSPRN PRN ORAL Insomnia 07/07/19 21:00 07/14/19 20:59 Assessment/Plan Status: stable Assessment/Plan: Assessment (1) Acute exacerbation of COPD with asthma (2) Acute bronchitis (3) EF 35% (4) COPD (chronic obstructive pulmonary disease) (5) Hypothyroidism (6) HTN (hypertension)3 (7) Hemiparesis affecting right side as late effect of cerebrovascular accident (CVA) (8) CAD (coronary artery disease) (9) History of CVA (cerebrovascular accident) Recommendations Empiric steroids for COPD/Asthma Pulmonary toilet/duonebs prn Echo reviewed from 2019 - continue goal directed medical therapy Life vest for systolic dysfunction, may need ICD at later date Stress test as outpatient Continue DAPT Increase coreg 12.5 mg BID Continue maintenance lasix 20 mg BID DASH diet, fluid restriction Add aldactone 12.5 mg daily Ricardo Luis MD Jul 08, 2019 12:18
--- NOTE | 2019-07-08 12:24 | Diagnostic Imaging Report ---
Indication: Dyspnea Comparison: 03/25/2019 A single view chest radiograph was obtained. Findings: Cardiomediastinal appearance is prominent. The lungs are clear. Pulmonary vascularity is appropriate. The diaphragmatic contour is smooth and costophrenic angles are sharp. No pleural effusions are identified. The bones are unremarkable. Impression: No acute findings. Cardiomegaly
[2019-07-08 16:00] VITALS: BP 131/77
--- NOTE | 2019-07-08 16:11 | History & Physical ---
History and Physical History & Physicial Dictated for Int Med-DR Sandhu no. [id number]. Antonio Anglin MD Jul 08, 2019 16:11
--- NOTE | 2019-07-08 17:30 | History and Physical Report ---
DATE OF ADMISSION: 07/07/2019 CHIEF COMPLAINT: The patient is a 69-year-old female, who presents with a chief complaint of shortness of breath and chest pain. HISTORY OF PRESENT ILLNESS: Began three days prior to admission. The patient began to have shortness of breath. The patient also began to experience left-sided chest pain. Chest pain is constant. Pain radiates to the left arm. The patient presented to [place] emergency room. The patient was admitted with chest pain and shortness of breath to rule out acute coronary syndrome. REVIEW OF SYSTEMS: CONSTITUTIONAL: The patient denies weight loss or gain. The patient denies fevers or chills. HEENT: The patient denies ear or throat pain. The patient denies headache. CARDIOVASCULAR: The patient complains of chest pain as above. The patient denies palpitations. CHEST: The patient complains of shortness of breath as above. The patient denies wheeze. ABDOMINAL: The patient denies nausea, vomiting, diarrhea, or constipation. GENITOURINARY: The patient denies dysuria or increased frequency of urination. NEUROMUSCULAR: The patient denies seizures or generalized weakness. PAST MEDICAL HISTORY: Significant for: 1. Congestive heart failure. 2. Cardiomyopathy with ejection fraction of 30 to 35%. 3. History of cerebrovascular accident in 2008. 4. Hypertension. 5. Right hemiparesis. 6. Coronary artery disease. 7. Hypothyroidism. 8. Hypercholesterolemia. PAST SURGICAL HISTORY: The patient denies. CURRENT MEDICATIONS: 1. Aspirin 81 mg one tablet p.o. daily. 2. Atorvastatin 10 mg p.o. at bedtime. 3. Alphagan one drop in both eyes three times daily. 4. Symbicort 160/4.5 two puffs p.o. twice daily. 5. Carvedilol 6.25 mg p.o. twice daily. 6. Vitamin D3 1000 units p.o. daily. 7. Plavix 75 mg p.o. daily. 8. Lasix 40 mg p.o. daily. 9. Levothyroxine 25 mcg p.o. daily. 10. Spironolactone 25 mg p.o. daily. 11. Tizanidine 2 mg p.o. twice daily. ALLERGIES: No known drug allergies. SOCIAL HISTORY: The patient is single and lives with her adult daughter. The patient denies tobacco use, having quit in April 2017. The patient has occasional alcohol use. PHYSICAL EXAMINATION: VITAL SIGNS: Temperature 97.2, respirations 20, pulse 77, blood pressure 144/91. GENERAL: The patient is well-developed, well-nourished female, in no apparent distress. HEENT: Eyes, pupils equal responsive to light and accommodation. Extraocular movements are intact. NECK: Supple without lymphadenopathy. CHEST: Few crackles in bilateral bases. Otherwise, without wheezes or rales. CARDIOVASCULAR: Regular rhythm and rate. S1 and S2 normal without murmurs, rubs, or gallops. ABDOMEN: Soft, nontender, and nondistended. Positive bowel sounds. No evidence of hepatosplenomegaly. Currently, no rebound or guarding noted. EXTREMITIES: Negative for clubbing, cyanosis, or edema. RECTAL/GENITAL: Not performed. NEUROLOGIC: Cranial nerves II through XII are grossly intact without focal deficits. Motor strength is 5/5 bilaterally. Deep tendon reflexes are 2+ plantar. LABORATORY STUDIES: WBC 10.8, hemoglobin 12.1, hematocrit 37.5, platelets 216,000. Sodium 140, potassium 4.2, chloride 105, CO2 23, BUN 28, creatinine 1.2, glucose 113. Troponin 0.014. BNP elevated at 922. Chest x-ray was reported as no acute disease. ASSESSMENT: This is a 69-year-old female. 1. Shortness of breath. 2. Chest pain. 3. Congestive heart failure. 4. Cardiomyopathy. 5. Cerebrovascular disease. 6. Hypertension. 7. Right hemiparesis. 8. Coronary artery disease. 9. Hypothyroidism. 10. Hypercholesterolemia. TREATMENT: 1. Shortness of breath. This may be secondary to congestive heart failure. 2. Chest pain/congestive heart failure. A Cardiology consultation has been obtained with Dr. Juan Be. Echocardiogram is pending. Serial troponin levels will be performed. We will follow recommendation of Cardiology. 3. Cerebrovascular disease. The patient is status post cerebrovascular accident. Continue aspirin as above. 4. Hypertension. Continue Coreg as above. 5. Right hemiparesis. 6. Coronary artery disease. As above, a Cardiology consultation has been obtained with Dr. Juan Be. 7. Hypothyroidism. Continue levothyroxine as above. 8. Hypercholesterolemia. Continue atorvastatin as above. Antonio Anglin M.D. DR: GLADYS JOB#: [id number] CC:
[2019-07-08 20:00] VITALS: BP 144/78
[2019-07-08] MEDS: Carvedilol 12.5mg tab ORAL SCH (20:44)
[2019-07-09] VITALS: BP 138/79
[2019-07-09 04:00] VITALS: BP 128/72
[2019-07-09] MEDS: Levothyroxine 25mcg tab ORAL SCH (06:07)
[2019-07-09 06:49] LABS: BASOPHILS % (AUTO) 0.5 % (0.0-2.0); EOSINOPHILS % (AUTO) 0.5 % (0.0-3.0); HEMATOCRIT 38.2 % (37.0-47.0); HEMOGLOBIN 12.9 G/DL (12.0-16.0); LYMPHOCYTES % (AUTO) 24.8 % (20.0-45.0); MEAN CORPUSCULAR VOLUME 89 FL (80-99); MONOCYTES % (AUTO) 5.5 % (1.0-10.0); NEUTROPHILS % (AUTO) 68.7 % (45.0-75.0); PLATELET COUNT 207 K/UL (150-450); RED BLOOD COUNT 4.31 M/UL (4.20-5.40); RED CELL DISTRIBUTION WIDTH 12.9 % (11.6-14.8); WHITE BLOOD COUNT 13.4 K/UL (4.8-10.8)
[2019-07-09 08:00] VITALS: BP 163/74
[2019-07-09 08:26] LABS: ANION GAP 12 mmol/L (5-15); BLOOD UREA NITROGEN 35 mg/dL (7-18); CALCIUM 9.1 MG/DL (8.5-10.1); CARBON DIOXIDE 23 MMOL/L (21-32); CHLORIDE 104 MMOL/L (98-107); CREATININE 1.2 MG/DL (0.55-1.30); POTASSIUM 4.2 MMOL/L (3.5-5.1); SODIUM 139 MMOL/L (136-145)
[2019-07-09] MEDS ORDERED: Spironolactone 25mg tab ORAL SCH (09:00)
--- NOTE | 2019-07-09 09:50 | Cardiology Progress Note ---
Assessment/Plan Status: stable Assessment/Plan Assessment (1) Acute exacerbation of COPD with asthma (2) Acute bronchitis (3) EF 35% (4) COPD (chronic obstructive pulmonary disease) (5) Hypothyroidism (6) HTN (hypertension)3 (7) Hemiparesis affecting right side as late effect of cerebrovascular accident (CVA) (8) CAD (coronary artery disease) (9) History of CVA (cerebrovascular accident) Recommendations Empiric steroids for COPD/Asthma Pulmonary toilet/duonebs prn Echo reviewed from 2019 - continue goal directed medical therapy Life vest for systolic dysfunction, may need ICD at later date Stress test as outpatient Continue DAPT Increased coreg 12.5 mg BID Continue maintenance lasix 20 mg BID DASH diet, fluid restriction Added aldactone 25 mg daily Subjective Cardiovascular: Reports: no symptoms Respiratory: Reports: no symptoms Gastrointestinal/Abdominal: Reports: no symptoms Genitourinary: Reports: no symptoms Subjective No acute events, no distress, no chest pain no sob no fever Objective Last 24 Hour Vital Signs Date Time Temp Pulse Resp B/P (MAP) Pulse Ox O2 Delivery O2 Flow Rate FiO2 07/09/19 09:30 87 20 97 Room Air 21 07/09/19 04:00 87 07/09/19 04:00 97.8 69 20 128/72 (90) 97 07/09/19 00:00 84 07/09/19 00:00 97.6 90 19 138/79 (98) 98 07/08/19 21:00 Room Air 07/08/19 20:44 80 156/89 07/08/19 20:36 97.7 07/08/19 20:00 72 07/08/19 20:00 97.7 74 19 144/78 (100) 97 07/08/19 16:00 82 07/08/19 16:00 97.7 77 20 131/77 (95) 95 07/08/19 12:00 83 07/08/19 12:00 96.8 89 20 144/94 (111) 97 General Appearance: no apparent distress, alert EENT: PERRL/EOMI, normal ENT inspection, TMs normal, pharynx normal Neck: non-tender, normal alignment, supple, normal inspection, no JVD Rhythm: NSR Cardiovascular: normal peripheral pulses, normal rate, regular rhythm Respiratory/Chest: chest wall non-tender, lungs clear, normal breath sounds Abdomen: normal bowel sounds, non tender, soft, no organomegaly, no mass Extremities: normal range of motion, non-tender, normal inspection, no calf tenderness, no swelling 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, no motor/sensory deficits Intake and Output 07/08/19 07/09/19 19:00 07:00 Intake Total 480 ml 360 ml Balance 480 ml 360 ml Intake Oral 480 ml 360 ml # Voids 3 2 # Bowel Movements 1 1 Laboratory Tests Test 07/09/19 06:23 White Blood Count 13.4 K/UL (4.8-10.8) #H Red Blood Count 4.31 M/UL (4.20-5.40) Hemoglobin 12.9 G/DL (12.0-16.0) Hematocrit 38.2 % (37.0-47.0) Mean Corpuscular Volume 89 FL (80-99) Mean Corpuscular Hemoglobin 29.9 PG (27.0-31.0) Mean Corpuscular Hemoglobin Concent 33.8 G/DL (32.0-36.0) Red Cell Distribution Width 12.9 % (11.6-14.8) Platelet Count 207 K/UL (150-450) Mean Platelet Volume 6.6 FL (6.5-10.1) Neutrophils (%) (Auto) 68.7 % (45.0-75.0) Lymphocytes (%) (Auto) 24.8 % (20.0-45.0) Monocytes (%) (Auto) 5.5 % (1.0-10.0) Eosinophils (%) (Auto) 0.5 % (0.0-3.0) Basophils (%) (Auto) 0.5 % (0.0-2.0) Sodium Level 139 MMOL/L (136-145) Potassium Level 4.2 MMOL/L (3.5-5.1) Chloride Level 104 MMOL/L (98-107) Carbon Dioxide Level 23 MMOL/L (21-32) Anion Gap 12 mmol/L (5-15) Blood Urea Nitrogen 35 mg/dL (7-18) H Creatinine 1.2 MG/DL (0.55-1.30) Estimat Glomerular Filtration Rate 54.3 mL/min (>60) Glucose Level 111 MG/DL (74-106) H Calcium Level 9.1 MG/DL (8.5-10.1) Troponin I 0.002 ng/mL (0.000-0.056) Microbiology Date/Time Source Procedure Growth Status 07/07/19 17:25 Blood Blood Culture - Preliminary NO GROWTH AFTER 24 HOURS Resulted 07/07/19 17:10 Blood Blood Culture - Preliminary NO GROWTH AFTER 24 HOURS Resulted 07/07/19 21:32 Nasal Nares - Final Complete 07/07/19 21:32 Nasal Nares - Final Complete Ricardo Luis MD Jul 09, 2019 09:50
[2019-07-09] MEDS: Heparin 5000 units/ml inj SUBQ SCH ×2 (09:57→20:59)
[2019-07-09] MEDS: Carvedilol 12.5mg tab ORAL SCH ×2 (09:59→20:54)
[2019-07-09] MEDS: Aspirin EC 81mg tab ORAL SCH (09:59)
[2019-07-09 12:00] VITALS: BP 132/81
--- NOTE | 2019-07-09 13:02 | Pulmonology Progress Note ---
Assessment/Plan Problems: (1) Acute exacerbation of COPD with asthma (2) Acute bronchitis (3) EF 35% (4) COPD (chronic obstructive pulmonary disease) (5) Hypothyroidism (6) HTN (hypertension) (7) Hemiparesis affecting right side as late effect of cerebrovascular accident (CVA) (8) CAD (coronary artery disease) (9) History of CVA (cerebrovascular accident) Assessment/Plan slightly better check sputum antitussives respiratory treatment titrate fio2 to sat of 92% f/u cardiology recommendations. Medication reviewed dvt prophylaxis. Subjective ROS Limited/Unobtainable: No Interval Events: still coughing Allergies: Coded Allergies: NO KNOWN ALLERGIES (Verified Allergy, Unknown, 10/29/18) Objective Last 24 Hour Vital Signs Date Time Temp Pulse Resp B/P (MAP) Pulse Ox O2 Delivery O2 Flow Rate FiO2 07/09/19 09:59 87 163/74 07/09/19 09:30 87 20 97 Room Air 21 07/09/19 09:00 Room Air 07/09/19 08:00 98.1 86 17 163/74 (103) 98 07/09/19 08:00 70 07/09/19 04:00 87 07/09/19 04:00 97.8 69 20 128/72 (90) 97 07/09/19 00:00 84 07/09/19 00:00 97.6 90 19 138/79 (98) 98 07/08/19 21:00 Room Air 07/08/19 20:44 80 156/89 07/08/19 20:36 97.7 07/08/19 20:00 72 07/08/19 20:00 97.7 74 19 144/78 (100) 97 07/08/19 16:00 82 07/08/19 16:00 97.7 77 20 131/77 (95) 95 Intake and Output 07/08/19 07/09/19 19:00 07:00 Intake Total 480 ml 360 ml Balance 480 ml 360 ml Intake Oral 480 ml 360 ml # Voids 3 2 # Bowel Movements 1 1 General Appearance: WD/WN HEENT: normocephalic, atraumatic Respiratory/Chest: chest wall non-tender, lungs clear Breasts: no masses Cardiovascular: normal peripheral pulses Abdomen: normal bowel sounds, soft, non tender, no organomegaly Genitourinary: normal external genitalia Skin: no rash 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 Microbiology Date/Time Source Procedure Growth Status 07/07/19 17:25 Blood Blood Culture - Preliminary NO GROWTH AFTER 24 HOURS Resulted 07/07/19 17:10 Blood Blood Culture - Preliminary NO GROWTH AFTER 24 HOURS Resulted 07/07/19 21:32 Nasal Nares - Final Complete 07/07/19 21:32 Nasal Nares - Final Complete Laboratory Tests 07/09/19 06:23: White Blood Count 13.4#H, Red Blood Count 4.31, Hemoglobin 12.9, Hematocrit 38.2 , Mean Corpuscular Volume 89, Mean Corpuscular Hemoglobin 29.9, Mean Corpuscular Hemoglobin Concent 33.8, Red Cell Distribution Width 12.9, Platelet Count 207, Mean Platelet Volume 6.6, Neutrophils (%) (Auto) 68.7, Lymphocytes (% ) (Auto) 24.8, Monocytes (%) (Auto) 5.5, Eosinophils (%) (Auto) 0.5, Basophils ( %) (Auto) 0.5, Sodium Level 139, Potassium Level 4.2, Chloride Level 104, Carbon Dioxide Level 23, Anion Gap 12, Blood Urea Nitrogen 35H, Creatinine 1.2, Estimat Glomerular Filtration Rate 54.3, Glucose Level 111H, Calcium Level 9.1, Troponin I 0.002 Current Medications Medications (Trade) Dose Ordered Sig/Marline Route PRN Reason Start Time Stop Time Status Last Admin Dose Admin Acetaminophen (Tylenol) 650 mg Q4H PRN ORAL T>100.5 07/07/19 19:15 08/06/19 19:14 07/08/19 20:06 Albuterol/ Ipratropium (Albuterol/ Ipratropium) 3 ml Q4H PRN HHN Shortness of Breath 07/07/19 19:15 07/12/19 19:14 Aspirin (Ecotrin) 81 mg DAILY ORAL 07/08/19 09:00 08/22/19 08:59 07/09/19 09:59 Atorvastatin Calcium (Lipitor) 10 mg BEDTIME ORAL 07/07/19 23:00 10/05/19 22:59 07/08/19 20:39 Carvedilol (Coreg) 12.5 mg EVERY 12 HOURS ORAL 07/08/19 21:00 08/06/19 22:59 07/09/19 09:59 Clopidogrel Bisulfate (Plavix) 75 mg DAILY ORAL 07/08/19 09:00 08/07/19 08:59 07/09/19 09:59 Dextrose (Dextrose 50%) 25 ml Q30M PRN IV Hypoglycemia 07/07/19 19:15 10/05/19 19:14 Dextrose (Dextrose 50%) 50 ml Q30MIN PRN IV Hypoglycemia 07/07/19 19:15 10/05/19 19:14 Heparin Sodium (Porcine) (Heparin 5000 units/ml) 5,000 units EVERY 12 HOURS SUBQ 07/07/19 23:00 08/21/19 22:59 07/09/19 09:57 Levothyroxine Sodium (Synthroid) 25 mcg ACBREAKFAST ORAL 07/08/19 06:30 08/07/19 06:29 07/09/19 06:07 Ondansetron HCl (Zofran) 4 mg Q6H PRN IVP Nausea & Vomiting 07/07/19 19:15 08/06/19 19:14 Polyethylene Glycol (Miralax) 17 gm DAILYPRN PRN ORAL Constipation 07/07/19 19:15 08/06/19 19:14 Spironolactone (Aldactone) 25 mg DAILY ORAL 07/09/19 09:00 08/08/19 08:59 07/09/19 09:57 Temazepam (Restoril) 15 mg HSPRN PRN ORAL Insomnia 07/07/19 21:00 07/14/19 20:59 Halina Hameed MD Jul 09, 2019 13:02
[2019-07-09 16:00] VITALS: BP 125/86
[2019-07-09 20:00] VITALS: BP 127/77
--- NOTE | 2019-07-09 22:19 | Internal Med Progress Note ---
Subjective Physician Name Charly Sandhu Attending Physician Charly Sandhu MD Current Medications Medications (Trade) Dose Ordered Sig/Marline Route PRN Reason Start Time Stop Time Status Last Admin Dose Admin Acetaminophen (Tylenol) 650 mg Q4H PRN ORAL T>100.5 07/07/19 19:15 08/06/19 19:14 07/08/19 20:06 Albuterol/ Ipratropium (Albuterol/ Ipratropium) 3 ml Q4H PRN HHN Shortness of Breath 07/07/19 19:15 07/12/19 19:14 Aspirin (Ecotrin) 81 mg DAILY ORAL 07/08/19 09:00 08/22/19 08:59 07/09/19 09:59 Atorvastatin Calcium (Lipitor) 10 mg BEDTIME ORAL 07/07/19 23:00 10/05/19 22:59 07/09/19 20:55 Carvedilol (Coreg) 12.5 mg EVERY 12 HOURS ORAL 07/08/19 21:00 08/06/19 22:59 07/09/19 20:54 Clopidogrel Bisulfate (Plavix) 75 mg DAILY ORAL 07/08/19 09:00 08/07/19 08:59 07/09/19 09:59 Dextrose (Dextrose 50%) 25 ml Q30M PRN IV Hypoglycemia 07/07/19 19:15 10/05/19 19:14 Dextrose (Dextrose 50%) 50 ml Q30MIN PRN IV Hypoglycemia 07/07/19 19:15 10/05/19 19:14 Heparin Sodium (Porcine) (Heparin 5000 units/ml) 5,000 units EVERY 12 HOURS SUBQ 07/07/19 23:00 08/21/19 22:59 07/09/19 20:59 Levothyroxine Sodium (Synthroid) 25 mcg ACBREAKFAST ORAL 07/08/19 06:30 08/07/19 06:29 07/09/19 06:07 Ondansetron HCl (Zofran) 4 mg Q6H PRN IVP Nausea & Vomiting 07/07/19 19:15 08/06/19 19:14 Polyethylene Glycol (Miralax) 17 gm DAILYPRN PRN ORAL Constipation 07/07/19 19:15 08/06/19 19:14 Spironolactone (Aldactone) 25 mg DAILY ORAL 07/09/19 09:00 08/08/19 08:59 07/09/19 09:57 Temazepam (Restoril) 15 mg HSPRN PRN ORAL Insomnia 07/07/19 21:00 07/14/19 20:59 Allergies: Coded Allergies: NO KNOWN ALLERGIES (Verified Allergy, Unknown, 10/29/18) Subjective awake, alert, responsive, less SOB, No CP. Objective Last Vital Signs Date Time Temp Pulse Resp B/P (MAP) Pulse Ox O2 Delivery O2 Flow Rate FiO2 07/09/19 21:00 Room Air 07/09/19 20:54 67 127/77 07/09/19 20:00 96.7 18 97 07/09/19 19:09 21 Laboratory Tests Test 07/09/19 06:23 White Blood Count 13.4 K/UL (4.8-10.8) #H Red Blood Count 4.31 M/UL (4.20-5.40) Hemoglobin 12.9 G/DL (12.0-16.0) Hematocrit 38.2 % (37.0-47.0) Mean Corpuscular Volume 89 FL (80-99) Mean Corpuscular Hemoglobin 29.9 PG (27.0-31.0) Mean Corpuscular Hemoglobin Concent 33.8 G/DL (32.0-36.0) Red Cell Distribution Width 12.9 % (11.6-14.8) Platelet Count 207 K/UL (150-450) Mean Platelet Volume 6.6 FL (6.5-10.1) Neutrophils (%) (Auto) 68.7 % (45.0-75.0) Lymphocytes (%) (Auto) 24.8 % (20.0-45.0) Monocytes (%) (Auto) 5.5 % (1.0-10.0) Eosinophils (%) (Auto) 0.5 % (0.0-3.0) Basophils (%) (Auto) 0.5 % (0.0-2.0) Sodium Level 139 MMOL/L (136-145) Potassium Level 4.2 MMOL/L (3.5-5.1) Chloride Level 104 MMOL/L (98-107) Carbon Dioxide Level 23 MMOL/L (21-32) Anion Gap 12 mmol/L (5-15) Blood Urea Nitrogen 35 mg/dL (7-18) H Creatinine 1.2 MG/DL (0.55-1.30) Estimat Glomerular Filtration Rate 54.3 mL/min (>60) Glucose Level 111 MG/DL (74-106) H Calcium Level 9.1 MG/DL (8.5-10.1) Troponin I 0.002 ng/mL (0.000-0.056) Microbiology Date/Time Source Procedure Growth Status 07/07/19 17:25 Blood Blood Culture - Preliminary NO GROWTH AFTER 24 HOURS Resulted 07/07/19 17:10 Blood Blood Culture - Preliminary NO GROWTH AFTER 24 HOURS Resulted 07/07/19 21:32 Nasal Nares - Final Complete 07/07/19 21:32 Nasal Nares - Final Complete Intake and Output 07/08/19 07/09/19 19:00 07:00 Intake Total 480 ml 360 ml Balance 480 ml 360 ml Intake Oral 480 ml 360 ml # Voids 3 2 # Bowel Movements 1 1 Objective General: No acute distress, awake and alert HEENT: NCAT, sclera anicteric, PERRL, EOMI. Neck: Supple, no significant jugular venous distention, Lungs: Good inspiratory effort, decrease breath sound at bases, no Wheeze or Rales. Heart: Regular rate and rhythm, normal S1/S2, no murmurs. Abdomen: soft, nontender, nondistended. Normoactive bowel sound, obesity. / Rectal: Refused and deferred. Extremities: No Cyanosis , clubbing or edema. Neuro: A&O x 3, Able to move all extremities Skin: warm, no rashes or lesions Psych: Normal mood and affect Assessment/Plan Assessment/Plan ASSESSMENT: This is a 69-year-old female. 1. Shortness of breath most likely due to acute COPD exacerbation.. 2. Chest pain. 3. Congestive heart failure. 4. Cardiomyopathy. 5. Cerebrovascular disease. 6. Hypertension. 7. Right hemiparesis. 8. Coronary artery disease. 9. Hypothyroidism. 10. Hypercholesterolemia. TREATMENT: 1. Shortness of breath. [place] 2. Chest pain/congestive heart failure. A Cardiology consultation has been obtained with Dr. Juan Be. Echocardiogram is pending. Serial troponin levels will be performed. We will follow recommendation of Cardiology. 3. Cerebrovascular disease. The patient is status post cerebrovascular accident. Continue aspirin as above. 4. Hypertension. Continue Coreg as above. 5. Right hemiparesis. 6. Coronary artery disease. As above, a Cardiology consultation has been obtained with Dr. Juan Be. 7. Hypothyroidism. Continue levothyroxine as above. 8. Hypercholesterolemia. Continue atorvastatin as above. Full code DVT Prophylaxis: Heparin SQ DC Telemetry. Charly Sandhu MD Jul 09, 2019 22:18
[2019-07-10] VITALS: BP 126/78
[2019-07-10] MEDS ORDERED: Albuterol/Ipratropium 3ml neb HHN PRN (01:15)
[2019-07-10] MEDS ORDERED: Miralax 17gm pkt ORAL PRN (01:17)
[2019-07-10 04:00] VITALS: BP 123/71
[2019-07-10] MEDS: Levothyroxine 25mcg tab ORAL SCH (06:22)
[2019-07-10 08:00] VITALS: BP 115/67
[2019-07-10] MEDS: Carvedilol 12.5mg tab ORAL SCH ×2 (08:53→20:38)
[2019-07-10] MEDS: Aspirin EC 81mg tab ORAL SCH (08:53)
[2019-07-10] MEDS: Spironolactone 25mg tab ORAL SCH (08:54)
[2019-07-10] MEDS: Heparin 5000 units/ml inj SUBQ SCH ×2 (08:55→20:40)
--- NOTE | 2019-07-10 10:55 | Pulmonology Progress Note ---
Assessment/Plan Assessment/Plan ASSESSMENT Acute COPD /asthma exacerbation Acute bronchitis Leukocytosis CHF with systolic dysfunction Cardiomyopathy SOB Hypothyroidism Cerebrovascular disease with history of CVA with right hemiparesis Hypertension Coronary artery disease PLAN of CARE transferred to [place] s/p x 1 dose of steroid in ER O2 titrate to keep pulse ox above 90% pulm toilet CXR no acute cardiopulmonary pathology leukocytosis today repeat CXR, get UA and cx BCX NGTD influenza screen NGT DVT prophylaxis Echo with rEF 45-50 % guideline directed medical therapy with diuretic and BB DAPT statin fluid restriction serial troponin negative , EKG revealed no acute ischemic changes ; was ruled out for acute MA cardio recommends stress test as OP continue levothyroxine case discussed and evaluated by supervising physician Subjective Allergies: Coded Allergies: NO KNOWN ALLERGIES (Verified Allergy, Unknown, 10/29/18) Subjective transferred to [place] reports feeling better, afebrile, but leukocytosis today with WBC 13 on RA pulse ox stable Objective Last 24 Hour Vital Signs Date Time Temp Pulse Resp B/P (MAP) Pulse Ox O2 Delivery O2 Flow Rate FiO2 07/10/19 09:00 Room Air 07/10/19 08:53 67 115/67 07/10/19 08:00 97.5 67 18 115/67 (83) 96 07/10/19 07:51 69 18 98 Room Air 21 07/10/19 04:00 97.9 61 20 123/71 (88) 96 07/10/19 00:00 73 07/10/19 00:00 97.2 62 17 126/78 (94) 96 07/09/19 21:00 Room Air 07/09/19 20:54 67 127/77 07/09/19 20:00 63 07/09/19 20:00 96.7 65 18 127/77 (94) 97 07/09/19 19:09 66 18 97 Room Air 21 07/09/19 16:00 98.1 61 20 125/86 (99) 98 07/09/19 16:00 59 07/09/19 12:00 97.5 60 20 132/81 (98) 98 07/09/19 12:00 64 Intake and Output 07/09/19 07/10/19 19:00 07:00 Intake Total 600 ml Balance 600 ml Intake Oral 600 ml # Voids 4 3 # Bowel Movements 1 General Appearance: no acute distress, other - obese AA female HEENT: normocephalic, atraumatic, anicteric, mucous membranes moist Respiratory/Chest: chest wall non-tender, decreased breath sounds Cardiovascular: normal rate Abdomen: soft, non tender - obese Extremities: other - + 1 edema BLE Neurologic/Psychiatric: alert, oriented x 3, responsive, other - R hemiparesis Musculoskeletal: normal muscle bulk Microbiology Date/Time Source Procedure Growth Status 07/07/19 17:25 Blood Blood Culture - Preliminary NO GROWTH AFTER 48 HOURS Resulted 07/07/19 17:10 Blood Blood Culture - Preliminary NO GROWTH AFTER 48 HOURS Resulted 07/07/19 21:32 Nasal Nares - Final Complete 07/07/19 21:32 Nasal Nares - Final Complete Current Medications Medications (Trade) Dose Ordered Sig/Marline Route PRN Reason Start Time Stop Time Status Last Admin Dose Admin Acetaminophen (Tylenol) 650 mg Q4H PRN ORAL T>100.5 07/10/19 01:13 08/06/19 01:12 Albuterol/ Ipratropium (Albuterol/ Ipratropium) 3 ml Q4H PRN HHN Shortness of Breath 07/10/19 01:15 07/12/19 01:14 Aspirin (Ecotrin) 81 mg DAILY ORAL 07/10/19 09:00 08/22/19 08:59 07/10/19 08:53 Atorvastatin Calcium (Lipitor) 10 mg BEDTIME ORAL 07/10/19 21:00 10/05/19 22:59 Carvedilol (Coreg) 12.5 mg EVERY 12 HOURS ORAL 07/10/19 09:00 08/06/19 22:59 07/10/19 08:53 Clopidogrel Bisulfate (Plavix) 75 mg DAILY ORAL 07/10/19 09:00 08/07/19 08:59 07/10/19 08:54 Dextrose (Dextrose 50%) 25 ml Q30M PRN IV Hypoglycemia 07/10/19 00:45 10/05/19 19:14 Dextrose (Dextrose 50%) 50 ml Q30MIN PRN IV Hypoglycemia 07/10/19 01:00 10/05/19 19:14 Heparin Sodium (Porcine) (Heparin 5000 units/ml) 5,000 units EVERY 12 HOURS SUBQ 07/10/19 09:00 08/21/19 22:59 07/10/19 08:55 Levothyroxine Sodium (Synthroid) 25 mcg ACBREAKFAST ORAL 07/10/19 06:30 08/07/19 06:29 07/10/19 06:22 Ondansetron HCl (Zofran) 4 mg Q6H PRN IVP Nausea & Vomiting 07/10/19 01:15 08/06/19 19:14 Polyethylene Glycol (Miralax) 17 gm DAILYPRN PRN ORAL Constipation 07/10/19 01:17 08/06/19 01:16 Spironolactone (Aldactone) 25 mg DAILY ORAL 07/10/19 09:00 08/08/19 08:59 07/10/19 08:54 Temazepam (Restoril) 15 mg HSPRN PRN ORAL Insomnia 07/10/19 01:12 07/14/19 01:11 Jolie Cordova NP Jul 10, 2019 10:55
--- NOTE | 2019-07-10 11:35 | Diagnostic Imaging Report ---
EXAM: XR Chest, 1 View CLINICAL HISTORY: SOB TECHNIQUE: Frontal view of the chest. COMPARISON: 07/07/19. FINDINGS: Lungs: Unremarkable. No consolidation. Pleural space: Unremarkable. No pneumothorax. Heart: Redemonstrated cardiomegaly. Mediastinum: Unremarkable. Bones/joints: Unremarkable. IMPRESSION: Redemonstrated cardiomegaly. No overt edema.
[2019-07-10 12:00] VITALS: BP 131/79
--- NOTE | 2019-07-10 14:40 | Internal Med Progress Note ---
Subjective Date of Service: Jul 10, 2019 Physician Name Antonio Anglin Attending Physician Charly Sandhu MD Current Medications Medications (Trade) Dose Ordered Sig/Marline Route PRN Reason Start Time Stop Time Status Last Admin Dose Admin Acetaminophen (Tylenol) 650 mg Q4H PRN ORAL T>100.5 07/10/19 01:13 08/06/19 01:12 Albuterol/ Ipratropium (Albuterol/ Ipratropium) 3 ml Q4H PRN HHN Shortness of Breath 07/10/19 01:15 07/12/19 01:14 Aspirin (Ecotrin) 81 mg DAILY ORAL 07/10/19 09:00 08/22/19 08:59 07/10/19 08:53 Atorvastatin Calcium (Lipitor) 10 mg BEDTIME ORAL 07/10/19 21:00 10/05/19 22:59 Carvedilol (Coreg) 12.5 mg EVERY 12 HOURS ORAL 07/10/19 09:00 08/06/19 22:59 07/10/19 08:53 Clopidogrel Bisulfate (Plavix) 75 mg DAILY ORAL 07/10/19 09:00 08/07/19 08:59 07/10/19 08:54 Dextrose (Dextrose 50%) 25 ml Q30M PRN IV Hypoglycemia 07/10/19 00:45 10/05/19 19:14 Dextrose (Dextrose 50%) 50 ml Q30MIN PRN IV Hypoglycemia 07/10/19 01:00 10/05/19 19:14 Heparin Sodium (Porcine) (Heparin 5000 units/ml) 5,000 units EVERY 12 HOURS SUBQ 07/10/19 09:00 08/21/19 22:59 07/10/19 08:55 Levothyroxine Sodium (Synthroid) 25 mcg ACBREAKFAST ORAL 07/10/19 06:30 08/07/19 06:29 07/10/19 06:22 Ondansetron HCl (Zofran) 4 mg Q6H PRN IVP Nausea & Vomiting 07/10/19 01:15 08/06/19 19:14 Polyethylene Glycol (Miralax) 17 gm DAILYPRN PRN ORAL Constipation 07/10/19 01:17 08/06/19 01:16 Spironolactone (Aldactone) 25 mg DAILY ORAL 07/10/19 09:00 08/08/19 08:59 07/10/19 08:54 Temazepam (Restoril) 15 mg HSPRN PRN ORAL Insomnia 07/10/19 01:12 07/14/19 01:11 Allergies: Coded Allergies: NO KNOWN ALLERGIES (Verified Allergy, Unknown, 10/29/18) ROS Limited/Unobtainable: No Constitutional: Reports: no symptoms HEENT: Reports: no symptoms Cardiovascular: Reports: chest pain Respiratory: Reports: shortness of breath Gastrointestinal/Abdominal: Reports: no symptoms Genitourinary: Reports: no symptoms Neurologic/Psychiatric: Reports: no symptoms Subjective 69 YO F admitted with shortness of breath. Now congestive heart failure. Cover for Int Med-DR Sandhu Objective Last Vital Signs Date Time Temp Pulse Resp B/P (MAP) Pulse Ox O2 Delivery O2 Flow Rate FiO2 07/10/19 12:00 97.0 67 17 131/79 (96) 98 07/10/19 09:00 Room Air 07/10/19 07:51 21 Microbiology Date/Time Source Procedure Growth Status 07/07/19 17:25 Blood Blood Culture - Preliminary NO GROWTH AFTER 48 HOURS Resulted 07/07/19 17:10 Blood Blood Culture - Preliminary NO GROWTH AFTER 48 HOURS Resulted 07/07/19 21:32 Nasal Nares - Final Complete 07/07/19 21:32 Nasal Nares - Final Complete Intake and Output 07/09/19 07/10/19 19:00 07:00 Intake Total 600 ml Balance 600 ml Intake Oral 600 ml # Voids 4 3 # Bowel Movements 1 Objective PHYSICAL EXAMINATION: GENERAL: The patient is well-developed, well-nourished female, in no apparent distress. HEENT: Eyes, pupils equal responsive to light and accommodation. Extraocular movements are intact. NECK: Supple without lymphadenopathy. CHEST: Few crackles in bilateral bases. Otherwise, without wheezes or rales. CARDIOVASCULAR: Regular rhythm and rate. S1 and S2 normal without murmurs, rubs, or gallops. ABDOMEN: Soft, nontender, and nondistended. Positive bowel sounds. No evidence of hepatosplenomegaly. Currently, no rebound or guarding noted. EXTREMITIES: Negative for clubbing, cyanosis, or edema. RECTAL/GENITAL: Not performed. NEUROLOGIC: Cranial nerves II through XII are grossly intact without focal deficits. Motor strength is 5/5 bilaterally. Deep tendon reflexes are 2+ plantar. Assessment/Plan Assessment/Plan ASSESSMENT: This is a 69-year-old female. 1. Shortness of breath. 2. Chest pain. 3. Congestive heart failure. 4. Cardiomyopathy. 5. Cerebrovascular disease. 6. Hypertension. 7. Right hemiparesis. 8. Coronary artery disease. 9. Hypothyroidism. 10. Hypercholesterolemia. TREATMENT: 1. Shortness of breath. This may be secondary to congestive heart failure. 2. Chest pain/congestive heart failure. A Cardiology consultation has been obtained with Dr. Juan Be. Echocardiogram is pending. Serial troponin levels will be performed. We will follow recommendation of Cardiology. 3. Cerebrovascular disease. The patient is status post cerebrovascular accident. Continue aspirin as above. 4. Hypertension. Continue Coreg as above. 5. Right hemiparesis. 6. Coronary artery disease. As above, a Cardiology consultation has been obtained with Dr. Juan Be. 7. Hypothyroidism. Continue levothyroxine as above. 8. Hypercholesterolemia. Continue atorvastatin as above. Antonio Anglin MD Jul 10, 2019 14:40
[2019-07-10 15:02] LABS: APPEARANCE,URINE SLIGHTLY CLOUDY; BILIRUBIN, URINE NEGATIVE (NEGATIVE); GLUCOSE, URINE (UA) NEGATIVE (NEGATIVE); KETONES,URINE NEGATIVE (NEGATIVE); LEUKOCYTE ESTERASE ,URINE 1+ (NEGATIVE); NITRITE,URINE NEGATIVE (NEGATIVE); PH,URINE 5 (4.5-8.0); PROTEIN,URINE NEGATIVE (NEGATIVE); UROBILINOGEN,URINE NORMAL MG/DL (0.0-1.0)
[2019-07-10 15:17] LABS: COLOR,URINE YELLOW
[2019-07-10 16:00] VITALS: BP 127/81
[2019-07-10] MEDS ORDERED: Promethazine/Codeine 5ml UD ORAL PRN (16:30)
[2019-07-10 19:44] VITALS: BP 118/75
[2019-07-11] VITALS: BP 111/63
[2019-07-11 04:00] VITALS: BP 119/72
[2019-07-11] MEDS: Levothyroxine 25mcg tab ORAL SCH (05:48)
[2019-07-11 08:00] VITALS: BP 139/64
[2019-07-11 08:35] LABS: BASOPHILS % (AUTO) 0.5 % (0.0-2.0); EOSINOPHILS % (AUTO) 1.7 % (0.0-3.0); HEMATOCRIT 34.2 % (37.0-47.0); HEMOGLOBIN 11.5 G/DL (12.0-16.0); LYMPHOCYTES % (AUTO) 28.3 % (20.0-45.0); MEAN CORPUSCULAR VOLUME 89 FL (80-99); MONOCYTES % (AUTO) 6.3 % (1.0-10.0); NEUTROPHILS % (AUTO) 63.3 % (45.0-75.0); PLATELET COUNT 188 K/UL (150-450); RED BLOOD COUNT 3.83 M/UL (4.20-5.40); RED CELL DISTRIBUTION WIDTH 12.9 % (11.6-14.8); WHITE BLOOD COUNT 9.2 K/UL (4.8-10.8)
[2019-07-11] MEDS: Spironolactone 25mg tab ORAL SCH (08:51)
[2019-07-11] MEDS: Carvedilol 12.5mg tab ORAL SCH (08:51)
[2019-07-11] MEDS: Aspirin EC 81mg tab ORAL SCH (08:51)
[2019-07-11 08:53] LABS: ANION GAP 8 mmol/L (5-15); BLOOD UREA NITROGEN 22 mg/dL (7-18); CARBON DIOXIDE 28 MMOL/L (21-32); CHLORIDE 106 MMOL/L (98-107); CREATININE 1.1 MG/DL (0.55-1.30); SODIUM 142 MMOL/L (136-145)
[2019-07-11] MEDS: Heparin 5000 units/ml inj SUBQ SCH (08:54)
[2019-07-11] MEDS ORDERED: COREG12.5 MG ORAL (10:30)
--- NOTE | 2019-07-11 10:35 | Pulmonology Progress Note ---
Assessment/Plan Assessment/Plan ASSESSMENT Acute COPD /asthma exacerbation Acute bronchitis Leukocytosis CHF with systolic dysfunction Cardiomyopathy SOB Hypothyroidism Cerebrovascular disease with history of CVA with right hemiparesis Hypertension Coronary artery disease PLAN of CARE MS floor s/p x 1 dose of steroid in ER O2 titrate to keep pulse ox above 90% pulm toilet CXR no acute cardiopulmonary pathology leukocytosis from yesterday resolved repeated CXR -stable ; UA negative BCX NGTD influenza screen NGT DVT prophylaxis Echo with rEF 45-50 % guideline directed medical therapy with diuretic and BB DAPT statin fluid restriction serial troponin negative , EKG revealed no acute ischemic changes ; was ruled out for acute LA cardio recommends stress test as OP continue levothyroxine can be dc today fup with PMD in 1 wk script for increased dose of Coreg provided case discussed and evaluated by supervising physician Subjective Allergies: Coded Allergies: NO KNOWN ALLERGIES (Verified Allergy, Unknown, 10/29/18) Subjective transferred to CT reports feeling better, afebrile, mild leuk from yesterday resolved on RA pulse ox stable clinically stable Objective Last 24 Hour Vital Signs Date Time Temp Pulse Resp B/P (MAP) Pulse Ox O2 Delivery O2 Flow Rate FiO2 07/11/19 09:00 Room Air 07/11/19 08:51 66 139/64 07/11/19 08:10 66 18 98 Room Air 21 07/11/19 08:00 97.4 71 18 139/64 (89) 97 07/11/19 04:00 97.3 67 20 119/72 (88) 96 07/11/19 00:00 96.7 73 20 111/63 (79) 97 07/10/19 20:52 Room Air 07/10/19 20:38 79 118/75 07/10/19 19:51 81 18 97 Room Air 21 07/10/19 19:44 97.7 79 20 118/75 (89) 97 07/10/19 16:00 97.5 69 19 127/81 (96) 97 07/10/19 12:00 97.0 67 17 131/79 (96) 98 Intake and Output 07/10/19 07/11/19 19:00 07:00 Intake Total 800 ml 240 ml Balance 800 ml 240 ml Intake Oral 240 ml Other 800 ml Objective General Appearance: no acute distress, other - obese AA female HEENT: normocephalic, atraumatic, anicteric, mucous membranes moist Respiratory/Chest: chest wall non-tender, decreased breath sounds Cardiovascular: normal rate Abdomen: soft, non tender - obese Extremities: other - + 1 edema BLE Neurologic/Psychiatric: alert, oriented x 3, responsive, R hemiparesis Musculoskeletal: normal muscle bulk Laboratory Tests 07/10/19 14:50: Urine Color Yellow, Urine Appearance Slightly cloudy, Urine pH 5, Urine Specific [place] 1.020, Urine Protein Negative, Urine Glucose (UA) Negative, Urine Ketones Negative, Urine Blood Negative, Urine Nitrite Negative, Urine Bilirubin Negative, Urine Urobilinogen Normal, Urine Leukocyte Esterase 1+H, Urine RBC 0-2, Urine WBC 0-2, Urine Squamous Epithelial Cells Few, Urine Bacteria Few 07/11/19 07:00: White Blood Count 9.2, Red Blood Count 3.83L, Hemoglobin 11.5L, Hematocrit 34.2L , Mean Corpuscular Volume 89, Mean Corpuscular Hemoglobin 30.0, Mean Corpuscular Hemoglobin Concent 33.7, Red Cell Distribution Width 12.9, Platelet Count 188, Mean Platelet Volume 6.6, Neutrophils (%) (Auto) 63.3, Lymphocytes (% ) (Auto) 28.3, Monocytes (%) (Auto) 6.3, Eosinophils (%) (Auto) 1.7, Basophils ( %) (Auto) 0.5, Sodium Level 142, Potassium Level 4.0, Chloride Level 106, Carbon Dioxide Level 28, Anion Gap 8, Blood Urea Nitrogen 22H, Creatinine 1.1, Estimat Glomerular Filtration Rate > 60, Glucose Level 116H, Calcium Level 9.0 Current Medications Medications (Trade) Dose Ordered Sig/Marline Route PRN Reason Start Time Stop Time Status Last Admin Dose Admin Acetaminophen (Tylenol) 650 mg Q4H PRN ORAL T>100.5 07/10/19 01:13 08/06/19 01:12 07/11/19 08:52 Albuterol/ Ipratropium (Albuterol/ Ipratropium) 3 ml Q4H PRN HHN Shortness of Breath 07/10/19 01:15 07/12/19 01:14 Aspirin (Ecotrin) 81 mg DAILY ORAL 07/10/19 09:00 08/22/19 08:59 07/11/19 08:51 Atorvastatin Calcium (Lipitor) 10 mg BEDTIME ORAL 07/10/19 21:00 10/05/19 22:59 07/10/19 20:39 Carvedilol (Coreg) 12.5 mg EVERY 12 HOURS ORAL 07/10/19 09:00 08/06/19 22:59 07/11/19 08:51 Clopidogrel Bisulfate (Plavix) 75 mg DAILY ORAL 07/10/19 09:00 08/07/19 08:59 07/11/19 08:51 Dextrose (Dextrose 50%) 25 ml Q30M PRN IV Hypoglycemia 07/10/19 00:45 10/05/19 19:14 Dextrose (Dextrose 50%) 50 ml Q30MIN PRN IV Hypoglycemia 07/10/19 01:00 10/05/19 19:14 Heparin Sodium (Porcine) (Heparin 5000 units/ml) 5,000 units EVERY 12 HOURS SUBQ 07/10/19 09:00 08/21/19 22:59 07/11/19 08:54 Levothyroxine Sodium (Synthroid) 25 mcg ACBREAKFAST ORAL 07/10/19 06:30 08/07/19 06:29 07/11/19 05:48 Ondansetron HCl (Zofran) 4 mg Q6H PRN IVP Nausea & Vomiting 07/10/19 01:15 08/06/19 19:14 Polyethylene Glycol (Miralax) 17 gm DAILYPRN PRN ORAL Constipation 07/10/19 01:17 08/06/19 01:16 Promethazine HCl/ Codeine (Phenergan with Codeine) 5 ml Q8H PRN ORAL For Cough 07/10/19 16:30 08/09/19 16:29 07/10/19 19:39 Spironolactone (Aldactone) 25 mg DAILY ORAL 07/10/19 09:00 08/08/19 08:59 07/11/19 08:51 Temazepam (Restoril) 15 mg HSPRN PRN ORAL Insomnia 07/10/19 01:12 07/14/19 01:11 Jolie Cordova MACHINE [employer]ER Jul 11, 2019 10:35
[2019-07-11 11:50] VITALS: BP 135/65
--- NOTE | 2019-07-12 07:55 | Discharge Summary ---
Discharge Summary Discharge Summary _ DATE OF ADMISSION: 07/07/2019 DATE OF DISCHARGE: 07/11/2019 DISCHARGED BY: Dr. Sandhu REASON FOR ADMISSION: 69 years old female, with past medical history of COPD, CHF, hypertension, history of CVA with right hemiparesis, former smoker, presented with shortness of breath for the last 2 to 3 days and nonproductive cough. She denied fever and chills. She denied chest pain. She denied headache, dizziness. She denied nausea or vomiting. She denied weight loss. No hemoptysis. Laboratory work-up revealed no leukocytosis. Stable hemoglobin and hematocrit. Lactic acid 1.4 ABG was stable on room air. Glucose 113. Troponin negative. Pro BNP 922. BUN 28, creatinine 1.2. Chest x-ray revealed cardiomegaly without CHF. No evidence of pneumonia In emergency department patient received IV Lasix and 125 mg of Solu-Medrol and admitted to telemetry floor for further management. CONSULTANTS: patient care technician dr. Luis pulmonary Dr. Hameed HOSPITAL COURSE: Patient admitted. Supplemental oxygen provided and titrated to keep pulse oximetry above 92%. Nebulizing treatment with bronchodilator provided [id number] and as needed. Antitussive provided as needed. DVT prophylaxis provided. Influenza screen was negative. Blood cultures were negative. Echocardiogram revealed ejection fraction 45 to 50% with mild global left ventricular hypokinesis. Mild mitral regurgitation. Right ventricular systolic pressure of 17. Guideline directed medical therapy with diuretics: Lasix and Aldactone, and beta-jose provided. Dual antiplatelet therapy and statin continued. Patient was on fluid restriction. Serial troponin were negative. EKG revealed no acute ischemic changes. Patient was ruled out for acute myocardial infarction. Secondary Teacher recommended stress test as an outpatient. Coreg dose was increased as per patient care technician. Levothyroxine was continued. Patient exhibited leukocytosis for 1 day on 07/08. Urinalysis revealed no evidence of urinary tract infection. Chest x-ray was repeated and showed cardiomegaly, no edema. No evidence of pneumonia. Leukocytosis resolved the next day , no fevers. Patient clinically stabilized and was ready for discharge home. FINAL DIAGNOSES: Acute COPD/asthma exacerbation Acute bronchitis Leukocytosis CHF with systolic dysfunction Cardiomyopathy Shortness of breath, resolved (likely due to COPD exacerbation) Hypothyroidism Cerebrovascular disease with a history of right CVA with right hemiparesis Hypertension Coronary artery disease DISCHARGE MEDICATIONS: See Medication Reconciliation list. DISCHARGE INSTRUCTIONS: Patient was discharged home. Follow-up with a primary care provider in 1 week. I have been assigned to dictate discharge summary for this account. I was not involved in the patient's management. Jolie Cordova NP Jul 12, 2019 07:55
== END 2019-07-11 11:54 | disposition home or self-care (01) | DRG 191 ==
LOC: EMR 17:10 → 2E 18:40 → EDBEDREQ 21:30 → 4E 07-10 00:30
DX: J44.1 Chronic obstructive pulmonary disease with (acute) exacerbation (principal); I50.20 Unspecified systolic (congestive) heart failure; I42.9 Cardiomyopathy, unspecified; I69.351 Hemiplegia and hemiparesis following cerebral infarction affecting right dominant side; J20.9 Acute bronchitis, unspecified; I11.0 Hypertensive heart disease with heart failure; E03.9 Hypothyroidism, unspecified; E78.00 Pure hypercholesterolemia, unspecified
CPT/HCPCS: 36415; 36600; 71045; 80048; 80053; 80069; 81001; 81003; 82803; 83605; 83735; 83880; 84484; 85025; 85610; 85730; 86710; 87040; 93005; 93306; 94664; 96374; 96375; 99285; J7620

== ENCOUNTER 2019-11-12 16:43 | Emergency (ER) | payer MEDICARE, MEDICAID ==
[~2019-11-12] VITALS: Ht 165.1 cm; Wt 99.3 kg
[~2019-11-12 16:43] MED LIST changes: +COREG12.5 MG ORAL
[2019-11-12 16:50] VITALS: BP 152/90
--- NOTE | 2019-11-12 16:50 | NUR ---
ED Nurse Note: Patient walked in to ED from home c/o right lower back pain and spasm radiating to her leg. Pt also c/o SOB during spasm. Denies urinary retention/ dysuria. Pt AAOx4, verbally responsive. Ambulatory with walker. Respirations even and unlabored, on room air. Afebrile. ERMD at bedside.
--- NOTE | 2019-11-12 17:25 | NUR ---
ED Nurse Note: Iv line established. Blood and urine specimen collected and sent to lab.
--- NOTE | 2019-11-12 17:26 | Emergency Room Report ---
History of Present Illness General Chief Complaint: Back Pain-No Injury Source: Patient Present Illness HPI 69-year-old -[place] female with past medical history of chronic back pain, arthritis, COPD presented to ER for multiple complaints. Patient states that she has chronic back pain and is followed by a pain specialist. She last paraprofessionals on October 21, 2019 and was given the medication that has not alleviated her pain. She describes right flank pain radiating down to the right thigh. When it is bad she states her "muscles cramp and [she] gets short of breath" As of 2 days ago the right flank pain became worse and is associated with dysuria. She has never experienced this before. Denies urinary retention, bowel or bladder incontinence, saddle anesthesia, spinal instrumentation, IV drug use or chronic steroids Or hematuria. To her knowledge she has no past medical history of nephrolithiasis. Denies falls, or hematuria, diarrhea, CP, hemoptysis, recent travel or immbolization. The patient's symptoms were gradual onset, severity was moderate, duration since 2 days Quality: Aching Severity: Mild Past medical history: Chronic back pain, arthritis, COPD Past surgical history: Denies Smoking: Previous Alcohol use: Denies Drug use: Denies Review of systems: CONST: No fevers or chills, No night sweats PULMONARY: No productive cough, No shortness of breath CARDIAC: No chest pain, No palpitations GI: No vomiting, No diarrhea , No melena_or_BRBPR : + dysuria, No hematuria, No discharge NEURO: No new_focal_weakness_or_numbness, No confusion, No vision changes. No saddle anesthesia. No midline back pain. 14 point Review of Systems is otherwise negative except per HPI Physical Exam: GENERAL: Awake_alert_ nontoxic, no acute distress Spo2 100% on RA -normal EYES: Extraocular muscles are intact. Conjunctivae clear. Lids without swelling ENT: External nose and ear normal_in_appearance. Oropharynx clear. Head_ atraumatic, Moist_oral_mucosa No midline C/T/L step off or TTP NECK: No JVD. No meningismus. No thyromegaly. Supple. Trachea midline RESP: Normal respiratory effort. Symmetric rise. No stridor. Clear_to_ auscultation_No_rales_No_wheezes CARDIAC: Regular rate and regular rhythm on_auscultation No_significant pedal edema. ABDOMEN: Soft. Nondistended. Nontender_No_rebound_or_guarding. No CVA TTP MSK: Normal muscle tone, without rigidity. Extremities without asymmetric deformity or swelling. R hip exam: +R SLR exam, + Crossed SLR exam; no saddle anesthesia No swelling / effusion appreciated, No significant pain with passive range of motion Lateral malleolus: no tenderness / swelling / ecchymoses Medial malleolus: no tenderness / swelling / ecchymoses Dorsalis pedis pulse: 2+ Capillary refill: <3 seconds in all toes All toes: full range of motion without any tenderness / swelling / deformity / evidence of infection Base of the fifth metatarsal: no tenderness / swelling / ecchymoses Navicular: no tenderness / swelling / ecchymoses Calcaneus: no tenderness / swelling / ecchymoses Arch of the foot: no tenderness / swelling / ecchymoses Midfoot: no tenderness / swelling / ecchymoses Strength of dorsal / plantar flexion: normal 5/5 SKIN: Warm and dry. No visible cyanosis or pallor NEUROLOGIC: Alert, oriented x3. Motor_and_sensation_grossly_intact. No truncal ataxia. Gait_normal Psych: Normal mood and affect, normal judgment and insight - COORDINATION OF CARE Case was discussed with: Patient Any labs and imaging that were ordered were interpreted as part of the medical decision making: Medical Decision Making/Plan: Differential diagnosis includes musculoskeletal pain, muscle spasm / sprain, vertebral fracture, pyelonephritis, kidney stone DOUBT spinal epidural abscess, spinal epidural hematoma, fx, cauda equina, conus medullaris , doubt AAA Vitals are unremarkable. On exam, pulses are equal and symmetric bilaterally. No focal neurologic deficits noted. No midline spinal step offs or deformities appreciated. The patient has no significant red flags on history or exam. Patient has no history of malignancy, active or distant history. Patient has no B symptoms: no unintentional weight loss, night sweats, or fevers. No longstanding steroid or other immunosuppressant usage. No mechanism for significant trauma. Patient has no vertebral deformity or midline tenderness and has a normal gait. Patient has no significant risk factors for spinal epidural emergency such as fever, IVDU, HIV, or anticoagulant use. Patient is neurologically intact without any lower extremity weakness / numbness , saddle anesthesia, urinary retention or fecal incontinence. No evidence of any emergent process of the spinal cord or cauda equina at this time. The patients symptoms appear consistent with a musculoskeletal origin. Pain improved robaxin and toradal. UA shows no infection. No hematuria. CT shows nonobstructing renal stones. Degenerative joint disease. Do not suspect conus medullaris or cauda equina at this time. Patient is neurologically intact. She is ambulatory. She is watching videos and texting on her phone. I have instructed her to follow-up with her chronic pain specialist. She received Robaxin and Toradol in the ER with relief of symptoms. Pertinent results reviewed with the patient. I educated the patient on the current treatment plan including the risks, benefits, and alternatives. I also discussed the extent and limitations of the current evaluation. The patient expressed understanding and agreement with plan. I recommended PMD follow-up within 1-2 days. Also advised that the patient return to the Emergency Department as soon as possible if they experience any new, persistent, or worsening symptoms. Allergies: Coded Allergies: NO KNOWN ALLERGIES (Verified Allergy, Unknown, 10/29/18) COVID-19 Screening Contact w/high risk pt: No Recent Travel to affected area: No Experienced COVID-19 symptoms?: Yes COVID-19 Testing performed GOLF BALL TRIMMER: No Nursing Documentation-PMH Past Medical History: No History, Except For Hx Hypertension: Yes Hx Pacemaker: No Hx COPD: Yes Hx Diabetes: No Hx Cancer: No Hx Gastrointestinal Problems: No Hx Neurological Problems: No Hx Cerebrovascular Accident: Yes Hx Neurologic Surgery: No Physical Exam Vital Signs Date Time Temp Pulse Resp B/P (MAP) Pulse Ox O2 Delivery O2 Flow Rate FiO2 11/12/19 16:49 97.9 83 16 152/90 (110) 97 Room Air Sp02 EP Interpretation: reviewed, normal Medical Decision Making Diagnostic Impression: Primary Impression: Right flank pain Additional Impressions: Dysuria Osteoarthritis Kidney stone Reevaluation Time: 18:23 Last Vital Signs Date Time Temp Pulse Resp B/P (MAP) Pulse Ox O2 Delivery O2 Flow Rate FiO2 11/12/19 16:50 97.9 83 16 152/90 97 Room Air Status: improved Disposition: HOME, SELF-CARE Admit Decision Time: 18:24 Condition: Stable Scripts Naproxen* (NAPROXEN*) 500 Mg Tablet.dr 500 MG ORAL TWICE A DAY for 10 Days, #20 TAB Prov: Becca Wilks D.O. 11/12/19 Methocarbamol* (ROBAXIN-750*) 750 Mg Tablet 750 MG PO TID, #21 TAB 0 Refills Prov: Becca Wilks D.O. 11/12/19 Patient Instructions: Back Pain, Adult, Kidney Stones, [id number] Additional Instructions: Instructions for patient/rinkman: Follow up with your physician in 1-2 days. Follow-up with your doctor sooner if your condition requires a more timely clinical reevaluation. Return to the emergency department immediately if you feel that your condition is worsening or if you have any new or concerning symptoms. Review your discharge instructions and take any prescriptions given as instructed. Becca Wilks D.O. Nov 12, 2019 17:26
[2019-11-12] MEDS ORDERED: CARVEDILOL6.25 MG ORAL (17:37)
[2019-11-12] MEDS ORDERED: CLOPIDOGREL75 MG ORAL (17:37)
[2019-11-12] MEDS ORDERED: [UNRECOGNIZED DRUG - OTHER] OT (17:37)
[2019-11-12] MEDS ORDERED: TRAVATAN Z5 ML OP (17:37)
[2019-11-12] MEDS ORDERED: PREDNISOLO15 MG/5 M1 ORAL (17:37)
--- NOTE | 2019-11-12 17:40 | NUR ---
ED Nurse Note: Pt was taken to CT via gurkaro by a tech.
[2019-11-12 17:47] LABS: APPEARANCE,URINE CLEAR; BASOPHILS % (AUTO) 0.8 % (0.0-2.0); BILIRUBIN, URINE NEGATIVE (NEGATIVE); COLOR,URINE PALE YELLOW; EOSINOPHILS % (AUTO) 1.4 % (0.0-3.0); GLUCOSE, URINE (UA) NEGATIVE (NEGATIVE); HEMOGLOBIN 12.3 G/DL (12.0-16.0); KETONES,URINE NEGATIVE (NEGATIVE); LEUKOCYTE ESTERASE ,URINE NEGATIVE (NEGATIVE); LYMPHOCYTES % (AUTO) 25.7 % (20.0-45.0); MEAN CORPUSCULAR VOLUME 94 FL (80-99); MONOCYTES % (AUTO) 7.2 % (1.0-10.0); NEUTROPHILS % (AUTO) 64.9 % (45.0-75.0); NITRITE,URINE NEGATIVE (NEGATIVE); PH,URINE 5 (4.5-8.0); PLATELET COUNT 193 K/UL (150-450); PROTEIN,URINE NEGATIVE (NEGATIVE); RED BLOOD COUNT 4.02 M/UL (4.20-5.40); UROBILINOGEN,URINE NORMAL MG/DL (0.0-1.0); WHITE BLOOD COUNT 10.1 K/UL (4.8-10.8)
[2019-11-12] MEDS ORDERED: Ketorolac 30mg Inj IM ONE (18:00)
[2019-11-12] MEDS ORDERED: Methocarbamol 750mg tab ORAL ONE (18:00)
[2019-11-12 18:05] LABS: ANION GAP 10 mmol/L (5-15); BLOOD UREA NITROGEN 24 mg/dL (7-18); CALCIUM 8.9 MG/DL (8.5-10.1); CARBON DIOXIDE 27 MMOL/L (21-32); CHLORIDE 101 MMOL/L (98-107); CREATININE 1.3 MG/DL (0.55-1.30); POTASSIUM 3.9 MMOL/L (3.5-5.1); SODIUM 138 MMOL/L (136-145)
[2019-11-12 18:09] LABS: ALANINE AMINOTRANSFERASE 31 U/L (12-78); ALBUMIN 3.4 G/DL (3.4-5.0); ALBUMIN/GLOBULIN RATIO 0.7 (1.0-2.7); ALKALINE PHOSPHATASE 141 U/L (46-116); ASPARTATE AMINO TRANSFERASE 28 U/L (15-37); BILIRUBIN,TOTAL 0.3 MG/DL (0.2-1.0)
--- NOTE | 2019-11-12 18:10 | Diagnostic Imaging Report ---
EXAM: CT Abdomen and Pelvis Without Intravenous Contrast CLINICAL HISTORY: ABD PAIN TECHNIQUE: Axial computed tomography images of the abdomen and pelvis without intravenous contrast. CTDI is 14 mGy and DLP is 705 mGy-cm. One or more of the following dose reduction techniques were used: automated exposure control, adjustment of the mA and/or kV according to patient size, use of iterative reconstruction technique. Coronal and sagittal reformatted images were created and reviewed. COMPARISON: 05/02/17 FINDINGS: Lung bases: Unremarkable. No mass. No consolidation. Heart: Small pericardial effusion. ABDOMEN: Liver: Unremarkable. Gallbladder and bile ducts: Unremarkable. No calcified stones. No ductal dilation. Pancreas: Unremarkable. No ductal dilation. Spleen: Unremarkable. No splenomegaly. Adrenals: Unremarkable. No mass. Kidneys and ureters: See below. Stomach and bowel: Colonic diverticulosis without acute diverticulitis. No obstruction. PELVIS: Appendix: No findings to suggest acute appendicitis. Bladder: Unremarkable. No stones. Reproductive: Unremarkable as visualized. ABDOMEN and PELVIS: Intraperitoneal space: Unremarkable. No free air. No significant fluid collection. Bones/joints: Multilevel age-related degenerative spine findings and osteopenia. No acute fracture. No dislocation. Soft tissues: Unremarkable. Vasculature: Multiple bilateral likely vascular calcifications in the kidneys without obstruction. No abdominal aortic aneurysm. Lymph nodes: Unremarkable. No enlarged lymph nodes. Other findings: Severe ASVD. IMPRESSION: 1. No acute abnormality definitively identified to account for patient presentation. 2. Multiple bilateral likely vascular calcifications in the kidneys without obstruction. 3. Colonic diverticulosis without acute diverticulitis. 4. Severe ASVD. 5. Multilevel age-related degenerative spine findings and osteopenia.
[2019-11-12] MEDS ORDERED: NAPROXEN500 M1 ORAL (18:27)
[2019-11-12] MEDS ORDERED: ROBAXIN-750750 MG PO (18:27)
[2019-11-12 18:36] VITALS: BP 148/88
--- NOTE | 2019-11-12 18:36 | NUR ---
ER DISCHARGE NOTE: Patient is cleared to be discharged per ERMD, pt is aox4, on room air, with stable vital signs. pt was given dc and prescription instructions, pt was able to verbalize understanding, pt id band and iv site removed without complications. pt is able to ambulate with steady gait. pt took all belongings.
== END 2019-11-12 18:36 | disposition home or self-care (01) ==
LOC: EMR 16:58
DX: R10.9 Unspecified abdominal pain (principal); R30.0 Dysuria; M19.90 Unspecified osteoarthritis, unspecified site; N20.0 Calculus of kidney; J44.9 Chronic obstructive pulmonary disease, unspecified; Z86.73 Personal history of transient ischemic attack (TIA), and cerebral infarction without residual deficits; I10 Essential (primary) hypertension
CPT/HCPCS: 36415; 74176; 80053; 81003; 83690; 85025; 96372; 99284; J1885